=== PATIENT | female | born 1950 | race Caucasian/White ===

== ENCOUNTER → 2016-10-18 | Outpatient (CLI) | payer OTHER ==
[~2016-10-18] MED LIST: CEPH500C25 OR; CMD5 PO; CRDCD300 PO; ESCI1TAB10 PO; EZET10TA63 PO; LVNIS150 SC; PRAV40TA3 PO; SITA100T3 PO
[2016-10-18 09:49] LABS: URINE APPEARANCE CLEAR (CLEAR); URINE BILIRUBIN NEG (NEG); URINE COLOR YELLOW; URINE NITRITE NEG (NEG); URINE SPECIFIC GRAVITY 1.001 (1.000-1.030); UROBILINOGEN NEG (NEG)
[2016-10-18 09:59] LABS: MANUAL MICROSCOPIC REQUIRED? NO; REVIEW REQ? NO
[2016-10-18 10:11] LABS: ESTIMATED AVERAGE GLUCOSE 180 mg/dl; HA1C FLAG Normal (Normal)
[2016-10-18 10:17] LABS: ALB/GLOB RATIO 0.9 (0.9-2); ALKALINE PHOSPHATASE 72 U/L (45-117); ALT/SGPT 33 U/L (12-78); AST/SGOT 20 U/L (15-37); BLOOD UREA NITROGEN 20 mg/dl (7-18); BUN/CREATININE RATIO 16.7 (10-20); CALCIUM 9.6 mg/dl (8.5-10.1); CARBON DIOXIDE 27 mmol/L (21-32); CHLORIDE 102 mmol/L (98-107); GLUCOSE 173 mg/dl (70-99); HDL CHOLESTEROL 47 mg/dl; POTASSIUM 4.2 mmol/L (3.5-5.1); SODIUM 139 mmol/L (136-145)
[2016-10-18 10:22] LABS: CHOLESTEROL 157 mg/dl (0-200); CHOLESTEROL/HDL RATIO 3.3; LDL CHOLESTEROL CALCULATED 75 mg/dl; TRIGLYCERIDES 175 mg/dl (0-150); VERY LOW DENSITY LIPOPROT CALC 35 mg/dl
[2016-10-18 10:34] LABS: RATIO 102.9 mcg/mg (0-30.0)
== END | disposition home or self-care (01) ==
LOC: C.LAB1850 07:28
PROVIDERS: ATTEND Family Medicine
DX: E78.5 Hyperlipidemia, unspecified (principal); I10 Essential (primary) hypertension; G47.33 Obstructive sleep apnea (adult) (pediatric); E11.65 Type 2 diabetes mellitus with hyperglycemia; N39.0 Urinary tract infection, site not specified

== ENCOUNTER → 2017-02-16 | Outpatient (CLI) | payer OTHER ==
[2017-02-16 09:59] LABS: ESTIMATED AVERAGE GLUCOSE 206 mg/dl; HA1C FLAG Normal (Normal)
== END | disposition home or self-care (01) ==
LOC: C.LAB1850 08:19
PROVIDERS: ATTEND Family Medicine
DX: E11.65 Type 2 diabetes mellitus with hyperglycemia (principal)

== ENCOUNTER → 2017-03-13 | Outpatient (CLI) | payer OTHER ==
[2017-03-13 10:00] LABS: CALCIUM 9.1 mg/dl (8.5-10.1)
[2017-03-13 10:13] LABS: ALT/SGPT 35 U/L (12-78); BLOOD UREA NITROGEN 19 mg/dl (7-18); BUN/CREATININE RATIO 14.9 (10-20); CARBON DIOXIDE 29 mmol/L (21-32); CHLORIDE 99 mmol/L (98-107); CHOLESTEROL 156 mg/dl (0-200); GLUCOSE 209 mg/dl (70-99); MAGNESIUM 2.1 mg/dl (1.8-2.4); POTASSIUM 3.8 mmol/L (3.5-5.1); SODIUM 137 mmol/L (136-145); TRIGLYCERIDES 200 mg/dl (0-150); VERY LOW DENSITY LIPOPROT CALC 40 mg/dl
[2017-03-13 10:15] LABS: CHOLESTEROL/HDL RATIO 3.7; HDL CHOLESTEROL 42 mg/dl; LDL CHOLESTEROL CALCULATED 74 mg/dl
[2017-03-13 10:24] LABS: ESTIMATED AVERAGE GLUCOSE 209 mg/dl; HA1C FLAG Normal (Normal)
[2017-03-13 10:33] LABS: RATIO 98.2 mcg/mg (0-30.0)
== END | disposition home or self-care (01) ==
LOC: C.LAB1850 08:22
PROVIDERS: ATTEND Family Medicine
DX: E11.65 Type 2 diabetes mellitus with hyperglycemia (principal); Z79.4 Long term (current) use of insulin

== ENCOUNTER → 2017-06-27 | Outpatient (CLI) | payer OTHER ==
[2017-06-27 10:00] LABS: BLOOD UREA NITROGEN 28 mg/dl (7-18); BUN/CREATININE RATIO 18.5 (10-20); CALCIUM 9.4 mg/dl (8.5-10.1); CARBON DIOXIDE 27 mmol/L (21-32); CHLORIDE 101 mmol/L (98-107); GLUCOSE 154 mg/dl (70-99); POTASSIUM 3.7 mmol/L (3.5-5.1); SODIUM 137 mmol/L (136-145)
[2017-06-27 10:37] LABS: URINE APPEARANCE CLEAR (CLEAR); URINE BILIRUBIN NEG (NEG); URINE COLOR YELLOW; URINE NITRITE NEG (NEG); URINE PH 6.5 (4.5-7.5); URINE SPECIFIC GRAVITY 1.011 (1.000-1.030); UROBILINOGEN NEG (NEG)
[2017-06-27 10:41] LABS: MANUAL MICROSCOPIC REQUIRED? NO; REVIEW REQ? NO
[2017-06-27 10:47] LABS: RATIO 102.6 mcg/mg (0-30.0)
== END ==
LOC: C.LAB1850 07:24
PROVIDERS: ATTEND Family Medicine
DX: E11.65 Type 2 diabetes mellitus with hyperglycemia (principal); Z79.4 Long term (current) use of insulin

== ENCOUNTER → 2017-09-27 | Outpatient (CLI) | payer OTHER ==
[2017-09-27 11:41] LABS: HEMOGLOBIN A1C 6.7 % (4.5-5.6)
[2017-09-27 13:00] LABS: ALT/SGPT 23 U/L (12-78); BLOOD UREA NITROGEN 20 mg/dl (7-18); CALCIUM 9.3 mg/dl (8.5-10.1); CARBON DIOXIDE 28 mmol/L (21-32); CHOLESTEROL 169 mg/dl (0-200); CREATININE 1.29 mg/dl (0.60-1.20); GLUCOSE 142 mg/dl (70-99); LDL CHOLESTEROL CALCULATED 89 mg/dl; POTASSIUM 3.9 mmol/L (3.5-5.1); SODIUM 136 mmol/L (136-145)
== END | disposition home or self-care (01) ==
LOC: C.LAB1850 09:03
PROVIDERS: ATTEND Family Medicine
DX: E78.5 Hyperlipidemia, unspecified (principal); E11.65 Type 2 diabetes mellitus with hyperglycemia; N39.0 Urinary tract infection, site not specified

== ENCOUNTER 2021-11-25 17:29 | Inpatient (IN) ==
--- NOTE | 2021-11-25 18:55 | Emergency Department Note ---
History of Present Illness General Chief complaint: Shortness of Breath/Dyspnea Stated complaint: sob, has collapsed lung, dr rodriguez Time Seen by Provider: 11/25/21 18:36 Source: patient Mode of arrival: ambulatory Limitations: no limitations History of Present Illness This patient is a 71-year-old female who comes in after being sent over from her doctor's office after being found to have a moderate-sized pleural effusion with some secondary collapse of the lung. No pneumothorax. She states she has been feeling short of breath for 3 weeks and for started with a cough and fatigue and shortness of breath everything is gotten better except for the shortness of breath. She had multiple Covid tested been negative. She did these at home. She has been vaccinated as well as boosted. At present she has no cough or fever no blood or melena stool. No chest pain. She occasionally feels lightheaded or dizziness but none now. She had a CAT scan today which showed no PE but had the effusion. He said her blood pressures been running high and they change her medications today because her heart rate was low. She has had no rash or tick bites. Home Medications Medication Instructions Recorded Confirmed Type aspirin 81 mg tablet,delayed 81 mg PO HS 10/18/18 11/25/21 History release (Ecotrin Low Strength) pen needle, diabetic 31 gauge x #100 ea 07/29/20 11/25/21 Rx 3/16" (BD Ultra-Fine Mini Pen Needle) polyethylene glycol 3350 17 17 g PO DAILY PRN g 04/11/21 11/25/21 History gram/dose oral powder (Miralax) dulaglutide 1.5 mg/0.5 mL 1.5 mg SQ WK #2 ml 07/02/21 11/25/21 Rx subcutaneous pen injector (Trulicity) glipizide 10 mg tablet 10 mg PO QAM #90 tab 07/04/21 11/25/21 Rx spironolactone 25 1 tab PO DAILY #90 tab 07/04/21 11/25/21 Rx mg-hydrochlorothiazide 25 mg tablet methenamine hippurate 1 gram tablet 1 g PO Q12H #180 tab 07/06/21 11/25/21 Rx conjugated estrogens 0.625 mg/gram See Rx Instructions .ROUTE 10/03/21 11/25/21 Rx vaginal cream (Premarin) .COMPLEX #30 g rosuvastatin 20 mg tablet (Crestor) 20 mg PO HS #90 tab 10/24/21 11/25/21 Rx metformin 1,000 mg tablet 1,000 mg PO Q12H #180 tab 11/04/21 11/25/21 Rx diltiazem HCl 300 mg capsule,24 300 mg PO DAILY #30 cap 11/25/21 11/25/21 Rx hr,extended release insulin glargine U-300 conc 300 80 unit SUBCUT HS 11/25/21 11/25/21 History unit/mL (1.5 mL) subcutaneous pen (Toujeo SoloStar U-300 Insulin) losartan 50 mg tablet 50 mg PO DAILY #30 tab 11/25/21 11/25/21 Rx Allergies Allergy/AdvReac Type Severity Reaction Status Date / Time cat dander Allergy Intermediate ITCHY Verified 11/25/21 19:09 EYES, SNEEZING, CONGESTION lisinopril AdvReac Intermediate Cough Verified 11/25/21 19:09 Sulfa (Sulfonamide AdvReac Intermediate NAUSEA Verified 11/25/21 19:09 Antibiotics) Past Med/Surg History Medical History Aortic stenosis MILD CALCIFIC AORTIC STENOSIS NOTED ON 2005 ECHO [facility]. ECHO DONE 10/22/18 SHOWED NO . B-cell lymphoma CKD (chronic kidney disease) stage 3, GFR 30-59 ml/min Essential (primary) hypertension Hyperlipidemia longterm current use of insulin LVH (left ventricular hypertrophy) Mediastinal lymphadenopathy Morbid obesity MAX (obstructive sleep apnea) USING CPAP HS 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 Personal history of malignant neoplasm of other parts of uterus Surgical History H/O colonoscopy H/O excision of mass LEFT NECK-DIAGNOSED WITH LYMPHOMA H/O hysterectomy with oophorectomy History of tonsillectomy and adenoidectomy History of total knee arthroplasty right and left Family History Grandfather (Maternal) Family history of diabetes mellitus Family/Other Family history of diabetes mellitus Father Myocardial infarction Denies family history of Ovarian cancer Prostate cancer Breast cancer Colorectal cancer Social History Smoking Status: Never smoker Second Hand Exposure: No; Do You Dip or Chew Tobacco: No; Hx Alcohol Use: Yes Hx Substance Use: No Preferred Language: Bulgarian Communication Ability: Effective Visual Impairment: No Limitations Hearing Ability: Normal Machining Associate Required: No Beliefs That Will Affect Care: None marital status: Current Living Situation: Alone current occupational status: employed current occupation: [employer] Other Information That Helps Us Care for You: No Feels Safe at Home: Yes Safety Concerns: Feels Safe At This Time Childhood Exposure to Second-Hand Smoke: Yes Dental Care, Regularly: Yes Physical Activity Frequency: Does not Exercise Seatbelt Use: always Sunscreen Use: Yes Assistive Devices: Glasses Review of Systems A total of 10 systems reviewed and were otherwise negative Physical Exam Vital Signs Vital Signs - 24 hr 11/25/21 17:34 11/25/21 19:31 11/25/21 19:32 Temperature 36.1 C L Temperature Source Temporal Artery Scan Pulse Rate 42 L 43 L Pulse Rate [Finger] 43 L Respiratory Rate 30 H 18 18 Respiratory Effort / Characteristics Non-Labored Non-Labored Spontaneous Respiratory Depth Normal Normal Blood Pressure 195/68 H Blood Pressure [Left Arm] 197/63 H Blood Pressure Mean 110 Blood Pressure Mean [Left Arm] 107 Blood Pressure Position [Left Arm] Sitting Pulse Oximetry 98 96 96 Oxygen Delivery Method Room Air Room Air Room Air Sepsis Recent Fever Within 48 Hours No Sepsis New/Unexplained Change in Mental Status N/A Sepsis Action Taken by Nursing No Action Required 11/25/21 20:33 Temperature Temperature Source Pulse Rate Pulse Rate [Finger] 35 L Respiratory Rate 18 Respiratory Effort / Characteristics Non-Labored Spontaneous Respiratory Depth Normal Blood Pressure Blood Pressure [Left Arm] 194/70 H Blood Pressure Mean Blood Pressure Mean [Left Arm] 111 Blood Pressure Position [Left Arm] Sitting Pulse Oximetry 97 Oxygen Delivery Method Room Air Sepsis Recent Fever Within 48 Hours Sepsis New/Unexplained Change in Mental Status Sepsis Action Taken by Nursing General: Well developed well nourished not ill-appearing middle-age female who appears in no acute distress, breathing comfortably on room air. Normal speech HEENT: Normal cephalic atraumatic. Pupils are equal round and reactive to light. Extraocular movements are intact. Oropharynx is pink with moist mucous membranes. No swelling of the mouth lips or tongue. Neck: Supple with a midline trachea. No meningeal signs or stiffness, no JVD or bruits. No Stridor. Chest: Clear to auscultation bilaterally. No wheezes or rhonchi. No increased work of breathing. A port in right chest. Heart: Rate a cardiac and irregular and rhythm without murmurs or gallops. Abdomen: Soft nontender, nondistended without rebound guarding or rigidity. Extremities: No cyanosis clubbing. She does have 2+ bilateral lower extremity edema which she says is new. No calf tenderness or assymetry Spine/Back. Non tender to palpation. No CVA tenderness Skin: Good turgor without rashes. Neurologic exam: Cranial nerves two through 12 are intact. Motor and sensation are intact and symmetrical throughout. Course Administered Medications Aspirin (Aspirin 81 Mg Ectab) 81 mg PO HS [facility] Stop: 12/25/21 22:42 Last Admin: 11/25/21 23:30 Dose: 81 mg Documented by: [id number] Rosuvastatin Calcium (Rosuvastatin Calcium 20 Mg Tab) 20 mg PO [facility] Stop: 12/25/21 22:42 Last Admin: 11/25/21 23:30 Dose: 20 mg Documented by: [id number] Discontinued Medications Insulin Glargine (Insulin Glargine Solostar 100 Units/Ml 3 Ml Pen) 64 units SC 2243 [facility] Stop: 11/25/21 22:44 Last Admin: 11/25/21 23:57 Dose: Not Given Documented by: [id number] Critical Care Time Critical Care Time: Yes Total Critical Care Time: 30 Due to the patient's bradycardia third-degree heart block, need for consultations, extensive work-up, frequent reassessment for decompensation and further evaluation, I have personally spent greater than 30 minutes of critical care time in the direct management of this patient. This includes bedside care, interpretation of diagnostic studies, and testing, discussion with consultants, patient, and family members, and other required patient management activities. This 30 minutes is in excess of all separately billable procedures. Medical Decision Making Differential Diagnosis Pleural effusion, infection, Covid, arrhythmia, electrolyte or metabolic abnormality, thyroid disease, cardiac disease, PE, cancer related complication, medication side effect Medical Records Attestation: I reviewed the patient's medical records. Home Medications Current Medication List: was personally reviewed by me Laboratory Data Attestation: I reviewed the patient's lab results. Result diagrams: 11/25/21 19:17 11/25/21 19:17 Lab Results 11/25/21 11/25/21 11/25/21 Range/Units 19:05 19:17 19:17 WBC 10.37 (4.8-10.8) K/uL RBC 4.03 L (4.2-5.4) M/uL Hgb 11.8 L (12.0-16.0) g/dL Hct 36.7 L (37-47) % MCV 91.1 (80-100) fL MCH 29.3 (25-34) pg MCHC 32.2 (32-36) g/dL RDW Std Deviation 60.0 H (36.4-46.3) fL RDW Coeff of Shruti 17.9 H (11.5-14.5) % Plt Count 315 (130-400) K/uL MPV 9.6 (7.4-10.4) fL Immature Gran % (Auto) 0.2 % Neut % (Auto) 80.0 % Lymph % (Auto) 12.6 % Marion % (Auto) 5.4 % Eos % (Auto) 1.6 % Baso % (Auto) 0.2 % Neut # (Auto) 8.29 H (1.4-6.5) K/uL Lymph # (Auto) 1.31 (1.2-3.4) K/uL Marion # (Auto) 0.56 (0.11-0.59) K/uL Eos # (Auto) 0.17 (0-0.5) K/uL Baso # (Auto) 0.02 (0-0.2) K/uL Immature Gran # (Auto) 0.02 (0.00-0.02) K/uL PT 12.1 H (9.0-12.0) Seconds INR 1.1 (0.9-1.1) APTT 25.4 (21.0-31.0) Seconds PTT Ratio 0.9 Sodium (136-145) mmol/L Potassium (3.5-5.1) mmol/L Chloride (98-107) mmol/L Carbon Dioxide (21-32) mmol/L Anion Gap (3-11) BUN (6-23) mg/dl Creatinine (0.6-1.2) mg/dl Est Cr Clr Drug Dosing Est GFR ( Amer) ml/min Est GFR (Non-Af Amer) ml/min BUN/Creatinine Ratio (10-20) Glucose (70-99(Fasting)) mg/dl POC Glucose (70-99) mg/dl Calcium (8.5-10.1) mg/dl Magnesium (1.7-2.4) mg/dl Total Bilirubin (0.2-1.0) mg/dl AST (13-39) U/L ALT (7-52) U/L Alkaline Phosphatase (34-104) U/L Troponin I (0-0.04) ng/ml B-Natriuretic Peptide (0-100) pg/ml Total Protein (6.0-8.3) gm/dl Albumin (3.4-5.0) gm/dl Globulin (2.5-4.0) gm/dl Albumin/Globulin Ratio (0.9-2) Lipase (11-82) U/L TSH (0.300-4.500) uIu/ml Lyme Disease IgG Ab (Negative) Lyme Disease IgM Ab (Negative) SARS-CoV-2, RNA, NAAT NEGATIVE (NEGATIVE) 11/25/21 11/25/21 11/25/21 Range/Units 19:17 19:17 19:17 WBC (4.8-10.8) K/uL RBC (4.2-5.4) M/uL Hgb (12.0-16.0) g/dL Hct (37-47) % MCV (80-100) fL MCH (25-34) pg MCHC (32-36) g/dL RDW Std Deviation (36.4-46.3) fL RDW Coeff of Shruti (11.5-14.5) % Plt Count (130-400) K/uL MPV (7.4-10.4) fL Immature Gran % (Auto) % Neut % (Auto) % Lymph % (Auto) % Marion % (Auto) % Eos % (Auto) % Baso % (Auto) % Neut # (Auto) (1.4-6.5) K/uL Lymph # (Auto) (1.2-3.4) K/uL Marion # (Auto) (0.11-0.59) K/uL Eos # (Auto) (0-0.5) K/uL Baso # (Auto) (0-0.2) K/uL Immature Gran # (Auto) (0.00-0.02) K/uL PT (9.0-12.0) Seconds INR (0.9-1.1) APTT (21.0-31.0) Seconds PTT Ratio Sodium 139 (136-145) mmol/L Potassium 3.9 (3.5-5.1) mmol/L Chloride 103 (98-107) mmol/L Carbon Dioxide 27 (21-32) mmol/L Anion Gap 9 (3-11) BUN 28 H (6-23) mg/dl Creatinine 1.46 H (0.6-1.2) mg/dl Est Cr Clr Drug Dosing Not Reportable Est GFR ( Amer) 42.1 ml/min Est GFR (Non-Af Amer) 36.3 ml/min BUN/Creatinine Ratio 19.2 (10-20) Glucose 62 L (70-99(Fasting)) mg/dl POC Glucose (70-99) mg/dl Calcium 10.4 H (8.5-10.1) mg/dl Magnesium 1.9 (1.7-2.4) mg/dl Total Bilirubin 0.4 (0.2-1.0) mg/dl AST 15 (13-39) U/L ALT 13 (7-52) U/L Alkaline Phosphatase 55 (34-104) U/L Troponin I 0.04 (0-0.04) ng/ml B-Natriuretic Peptide 728 H (0-100) pg/ml Total Protein 7.3 (6.0-8.3) gm/dl Albumin 4.2 (3.4-5.0) gm/dl Globulin 3.1 (2.5-4.0) gm/dl Albumin/Globulin Ratio 1.4 (0.9-2) Lipase 77 (11-82) U/L TSH 4.204 (0.300-4.500) uIu/ml Lyme Disease IgG Ab (Negative) Lyme Disease IgM Ab (Negative) SARS-CoV-2, RNA, NAAT (NEGATIVE) 11/25/21 11/25/21 Range/Units 19:17 21:07 WBC (4.8-10.8) K/uL RBC (4.2-5.4) M/uL Hgb (12.0-16.0) g/dL Hct (37-47) % MCV (80-100) fL MCH (25-34) pg MCHC (32-36) g/dL RDW Std Deviation (36.4-46.3) fL RDW Coeff of Shruti (11.5-14.5) % Plt Count (130-400) K/uL MPV (7.4-10.4) fL Immature Gran % (Auto) % Neut % (Auto) % Lymph % (Auto) % Marion % (Auto) % Eos % (Auto) % Baso % (Auto) % Neut # (Auto) (1.4-6.5) K/uL Lymph # (Auto) (1.2-3.4) K/uL Marion # (Auto) (0.11-0.59) K/uL Eos # (Auto) (0-0.5) K/uL Baso # (Auto) (0-0.2) K/uL Immature Gran # (Auto) (0.00-0.02) K/uL PT (9.0-12.0) Seconds INR (0.9-1.1) APTT (21.0-31.0) Seconds PTT Ratio Sodium (136-145) mmol/L Potassium (3.5-5.1) mmol/L Chloride (98-107) mmol/L Carbon Dioxide (21-32) mmol/L Anion Gap (3-11) BUN (6-23) mg/dl Creatinine (0.6-1.2) mg/dl Est Cr Clr Drug Dosing Est GFR ( Amer) ml/min Est GFR (Non-Af Amer) ml/min BUN/Creatinine Ratio (10-20) Glucose (70-99(Fasting)) mg/dl POC Glucose 110 H (70-99) mg/dl Calcium (8.5-10.1) mg/dl Magnesium (1.7-2.4) mg/dl Total Bilirubin (0.2-1.0) mg/dl AST (13-39) U/L ALT (7-52) U/L Alkaline Phosphatase (34-104) U/L Troponin I (0-0.04) ng/ml B-Natriuretic Peptide (0-100) pg/ml Total Protein (6.0-8.3) gm/dl Albumin (3.4-5.0) gm/dl Globulin (2.5-4.0) gm/dl Albumin/Globulin Ratio (0.9-2) Lipase (11-82) U/L TSH (0.300-4.500) uIu/ml Lyme Disease IgG Ab Negative (Negative) Lyme Disease IgM Ab Negative (Negative) SARS-CoV-2, RNA, NAAT (NEGATIVE) Imaging Data Attestation: I personally reviewed and interpreted this imaging study as follows: My Impression: Chest x-raycardiomegaly with mild congestive changes Radiologist's Impression: Chest X-Ray 11/25/21 18:49 XR chest 1V portable at 8:01 PM CLINICAL HISTORY: Chest Pain. COMPARISON STUDY: 11/25/2021 at 8:50 AM TECHNIQUE: 1 view of the chest FINDINGS: Single frontal view of the chest demonstrates the heart size to again be enlarged. Compared to previous study, there is a decreased inspiratory effort with elevation of hemidiaphragms and crowding the bronchovascular markings at the lung bases and centrally. There is also been interval development of central vascular congestion. There is again suspicion of a small right pleural effusion and evidence for right basilar atelectasis. There are no confluent alveolar opacities. There is no diffuse interstitial edema. There is no acute osseous pathology. A Port-A-Cath is in place. IMPRESSION: 1. Compared to the earlier study, there is a decreased inspiratory effort with interval development of central vascular congestion characteristic of early cardiac decompensation. 2. There is again evidence for small right pleural effusion and right basilar atelectasis. ACT 112: Negative or not required by law. Electronically signed by: Favian Forde M.D. 11/25/2021 8:33 PM ECG Data Attestation: I personally reviewed and interpreted this ECG as follows: Indication: + SOB/dyspnea Rate (beats per minute): 50 Rhythm: + sinus rhythm ECG Intervals/blocks: + Complete heart block (Her heart rate does appear to be either high-grade second-degree or third-degree heart block. The QRS is moderately widened as well.) and + Normal QT ECG [place]: + Normal ECG ST segments: + Normal ST segments Comparison ECG Date: from (10/18/18) Change: the following changes noted (She now has a second or third-degree heart block) MDM Narrative This patient comes in as described above. She was placed on a playground monitor in room C8 she was apparently sent over after having a pleural effusion. She looks well except for her heart rate is low with that she is actually hypertensive. Its at least high-grade second-degree or possibly third-degree heart block. She has an a port which we did accessed. Chest x-ray and blood work was obtained. I did talk to cardiology who recommended that we put the pads on her and if she compensates we could give her calcium or pacing. This was done. I reassessed her multiple times. Her chest x-ray it suggest that she may have more fluids and earlier and I am concerned that she could have a CHF component. Her creatinine is increased compared to baseline but besides this she has no significant lecture light or metabolic abnormalities. Covid testing was negative. Lyme titer was negative. BNP was mildly elevated but troponin was normal. She does have an effusion on her CT as well as her x-ray. She had no PE on this done earlier today. Dr. Larios was consulted he saw her in the ER is going to meet her to the ICU given her bradycardia. Her blood pressures remain on the hypertensive side and she did not require any other acute intervention however was observed and checked frequently. Continuous cardiac monitoring: Orders placed in EMR for continuous cardiac monitoring. Upon my interpretation she was noted to be bradycardic with a second to third-degree heart block Impression & Plan Third degree heart block, Port-A-Cath in place, Lab test negative for COVID-19 virus, Pleural effusion, History of B-cell lymphoma Discharge Plan Visit Data Chief Complaint: Shortness of Breath/Dyspnea Stated Complaint: sob, has collapsed lung, dr rodriguez ED Provider: Hu Anaya Discharge Problem: Third degree heart block, Port-A-Cath in place, Lab test negative for COVID-19 virus, Pleural effusion, History of B-cell lymphoma Patient Disposition: Admitted As Inpatient Discharge Instructions Interventions: ED Discharge Assessment Last Done: 11/25/21 22:01
[2021-11-25 19:37] LABS: Basophils # (auto) 0.02 K/uL (0-0.2); Basophils % (auto) 0.2 %; Eosinophils # (auto) 0.17 K/uL (0-0.5); Eosinophils % (auto) 1.6 %; Hematocrit (blood only) 36.7 % (37-47); Hemoglobin 11.8 g/dL (12.0-16.0); Immature Granulocytes # (auto) 0.02 K/uL (0.00-0.02); Immature Granulocytes % (auto) 0.2 %; Lymphocytes # (auto) 1.31 K/uL (1.2-3.4); Lymphocytes % (auto) 12.6 %; Mean Corpuscular Hemoglobin 29.3 pg (25-34); Mean Corpuscular Hgb Conc 32.2 g/dL (32-36); Mean Corpuscular Volume 91.1 fL (80-100); Mean Platelet Volume 9.6 fL (7.4-10.4); Monocytes # (auto) 0.56 K/uL (0.11-0.59); Monocytes % (auto) 5.4 %; Neutrophils # (auto) 8.29 K/uL (1.4-6.5); Platelet Count 315 K/uL (130-400); RDW Coefficient of Variation 17.9 % (11.5-14.5); Red Blood Count 4.03 M/uL (4.2-5.4); White Blood Count 10.37 K/uL (4.8-10.8)
[2021-11-25 19:45] LABS: INR 1.1 (0.9-1.1); Partial Thromboplastin Ratio 0.9; Partial Thromboplastin Time 25.4 Seconds (21.0-31.0); Prothrombin Time 12.1 Seconds (9.0-12.0)
[2021-11-25 19:59] LABS: Troponin I 0.04 ng/ml (0-0.04)
[2021-11-25 20:01] LABS: Alanine Aminotransferase 13 U/L (7-52); Albumin Globulin Ratio 1.4 (0.9-2); Albumin Level 4.2 gm/dl (3.4-5.0); Alkaline Phosphatase 55 U/L (34-104); Anion Gap 9 (3-11); Aspartate Aminotransferase 15 U/L (13-39); BUN Creatinine Ratio 19.2 (10-20); Bilirubin,Total 0.4 mg/dl (0.2-1.0); Blood Urea Nitrogen 28 mg/dl (6-23); Calcium 10.4 mg/dl (8.5-10.1); Carbon Dioxide 27 mmol/L (21-32); Chloride 103 mmol/L (98-107); Est GFR (African American) 42.1 ml/min; Est GFR (Non-African American) 36.3 ml/min; Globulin 3.1 gm/dl (2.5-4.0); Glucose 62 mg/dl (70-99(Fasting)); Lipase 77 U/L (11-82); Magnesium 1.9 mg/dl (1.7-2.4); Potassium 3.9 mmol/L (3.5-5.1); Sodium 139 mmol/L (136-145); Total Protein 7.3 gm/dl (6.0-8.3)
[2021-11-25 20:33] LABS: Lyme Ab IgG w/WB Rflx Negative (Negative); Lyme Ab IgM w/WB Rflx Negative (Negative)
--- NOTE | 2021-11-25 20:35 | XRay Report ---
XR chest 1V portable at 8:01 PM CLINICAL HISTORY: Chest Pain. COMPARISON STUDY: 11/25/2021 at 8:50 AM TECHNIQUE: 1 view of the chest FINDINGS: Single frontal view of the chest demonstrates the heart size to again be enlarged. Compared to previo us study, there is a decreased inspiratory effort with elevation of hemidiaphragms and crowding the b ronchovascular markings at the lung bases and centrally. There is also been interval development of c entral vascular congestion. There is again suspicion of a small right pleural effusion and evidence f or right basilar atelectasis. There are no confluent alveolar opacities. There is no diffuse intersti tial edema. There is no acute osseous pathology. A Port-A-Cath is in place. IMPRESSION: 1. Compared to the earlier study, there is a decreased inspiratory effort with interval development o f central vascular congestion characteristic of early cardiac decompensation. 2. There is again evidence for small right pleural effusion and right basilar atelectasis. ACT 112: Negative or not required by law. Electronically signed by: Favian Forde M.D. 11/25/2021 8:33 PM
--- NOTE | 2021-11-25 21:12 | History & Physical Report ---
Date of Service November 25, 2021 Assessment & Plan (1) Third degree heart block: Plan: Third-degree heart block/symptomatic bradycardia/aortic stenosis- Admit to the ICU Hold Cardizem CD Continue pacer pads with pacer at bedside Hold any other anti-hypertensives, level of pressure to ride high 180s -190s over the evening Order complete echocardiogram Cardiology is aware and will see patient in a.m. (2) Bradycardia: Plan: See above (3) Acute kidney injury superimposed on CKD: Plan: Creatinine 1.46, with baseline 1.06-1.27 Hold medications as noted Gentle rehydration Recheck laboratories in a.m. (4) Diabetes mellitus, type II, insulin dependent: Plan: Noted to be hypoglycemic with glucose 62 upon admission Hold dulaglutide, and Metformin Reduce Toujeo from 80 to 50 units subcu at bedtime Insulin correction per ICU protocol (5) Aortic stenosis: Plan: See above (6) Hyperlipidemia: Plan: Continue rosuvastatin (7) Obstructive sleep apnea: Plan: CPAP at bedtime (8) B-cell lymphoma: History of Present Illness Chief Complaint: The patient presents to the emergency department with intermittent shortness of breath and fatigue over the past 3 weeks, was seen by her outpatient physicians office, and when found to have a moderate sized pleural effusion she was sent to the ED for further assessment. Primary Care Provider: Nikki Tom MD The patient is a 71-year-old female with a past medical history including B-cell lymphoma, CKD stage III, sarcoidosis, diabetes mellitus type 2, aortic stenosis, essential hypertension, mitral regurgitation, MAX, recurrent UTI, situational anxiety, venous insufficiency, hyperlipidemia, and long-term insulin use. Patient notes shortness of breath and dyspnea on exertion intermittently over the past 3 weeks, was concerned that she had COVID-19, and has been testing himself periodically with with negatives testing. When seen by her outpatient physician, plans were to decrease the dosing of Cardizem CD, and decrease the dosing of her long-acting insulin due to intentionally being able to lower her blood sugars with A1c decreasing from 7-6. When outpatient imaging showed a moderate sized pleural effusion and low heart rate, she was sent to the ED for assessment. In the ED, she was found to be in complete heart block with heart rate in the 30s, and was referred for assessment for admission. Allergies Allergy/AdvReac Type Severity Reaction Status Date / Time cat dander Allergy Intermediate ITCHY Verified 11/25/21 19:09 EYES, SNEEZING, CONGESTION lisinopril AdvReac Intermediate Cough Verified 11/25/21 19:09 Sulfa (Sulfonamide AdvReac Intermediate NAUSEA Verified 11/25/21 19:09 Antibiotics) Home Medications Medication Instructions Recorded Confirmed Type aspirin 81 mg tablet,delayed 81 mg PO HS 10/18/18 11/25/21 History release (Ecotrin Low Strength) pen needle, diabetic 31 gauge x #100 ea 07/29/20 11/25/21 Rx 3/16" (BD Ultra-Fine Mini Pen Needle) polyethylene glycol 3350 17 17 g PO DAILY PRN g 04/11/21 11/25/21 History gram/dose oral powder (Miralax) dulaglutide 1.5 mg/0.5 mL 1.5 mg SQ WK #2 ml 07/02/21 11/25/21 Rx subcutaneous pen injector (Trulicity) glipizide 10 mg tablet 10 mg PO QAM #90 tab 07/04/21 11/25/21 Rx spironolactone 25 1 tab PO DAILY #90 tab 07/04/21 11/25/21 Rx mg-hydrochlorothiazide 25 mg tablet methenamine hippurate 1 gram tablet 1 g PO Q12H #180 tab 07/06/21 11/25/21 Rx conjugated estrogens 0.625 mg/gram See Rx Instructions .ROUTE 10/03/21 11/25/21 Rx vaginal cream (Premarin) .COMPLEX #30 g rosuvastatin 20 mg tablet (Crestor) 20 mg PO HS #90 tab 10/24/21 11/25/21 Rx metformin 1,000 mg tablet 1,000 mg PO Q12H #180 tab 11/04/21 11/25/21 Rx diltiazem HCl 300 mg capsule,24 300 mg PO DAILY #30 cap 11/25/21 11/25/21 Rx hr,extended release insulin glargine U-300 conc 300 80 unit SUBCUT HS 11/25/21 11/25/21 History unit/mL (1.5 mL) subcutaneous pen (Toujeo SoloStar U-300 Insulin) losartan 50 mg tablet 50 mg PO DAILY #30 tab 03/04/22 03/04/22 Rx Past Med/Surg History Medical History Aortic stenosis MILD CALCIFIC AORTIC STENOSIS NOTED ON 2005 ECHO [facility]. ECHO DONE 10/22/18 SHOWED NO . B-cell lymphoma CKD (chronic kidney disease) stage 3, GFR 30-59 ml/min Essential (primary) hypertension Hyperlipidemia senior care current use of insulin LVH (left ventricular hypertrophy) Mediastinal lymphadenopathy Morbid obesity MAX (obstructive sleep apnea) USING CPAP HS 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 Personal history of malignant neoplasm of other parts of uterus Surgical History H/O colonoscopy H/O excision of mass LEFT NECK-DIAGNOSED WITH LYMPHOMA H/O hysterectomy with oophorectomy History of tonsillectomy and adenoidectomy History of total knee arthroplasty right and left Family History Grandfather (Maternal) Family history of diabetes mellitus Family/Other Family history of diabetes mellitus Father Myocardial infarction Denies family history of Ovarian cancer Prostate cancer Breast cancer Colorectal cancer Social History Smoking Status: Never smoker Second Hand Exposure: No; Do You Dip or Chew Tobacco: No; Hx Alcohol Use: Yes Hx Substance Use: No Preferred Language: Ukrainian Communication Ability: Effective Visual Impairment: No Limitations Hearing Ability: Normal Coding Manager Required: No Beliefs That Will Affect Care: None marital status: Current Living Situation: Alone current occupational status: employed current occupation: [employer] Other Information That Helps Us Care for You: No Feels Safe at Home: Yes Safety Concerns: Feels Safe At This Time Childhood Exposure to Second-Hand Smoke: Yes Dental Care, Regularly: Yes Physical Activity Frequency: Does not Exercise Seatbelt Use: always Sunscreen Use: Yes Assistive Devices: None Review of Systems Review of Systems: The patient denies chest pain, palpitations, cough, lower extremity swelling, sore throat, fevers, chills, sweats, nausea, vomiting, diarrhea , constipation, abdominal pain, pelvic pain, blood in urine or stool, dysuria, urinary frequency or urgency, memory loss, loss of consciousness, rash, abnormal bruising or bleeding, focal weakness, numbness or tingling in arms or legs, generalized arthralgias or myalgias, back or neck pain, or night sweats. The review of systems is otherwise negative other than for that already noted above, and at least 10 systems have been reviewed. Physical Exam Physical Exam: The patient is awake, alert and oriented 3, well developed and well nourished, normocephalic and atraumatic, lying in bed and in no acute distress. HEENT--PERRL, EOMI, mucous membranes and oropharynx normal Neck--supple. No JVD. No bruits. Thyroid normal, trachea midline, no adenopathy. Heart--normal S1 and S2. No murmurs, rubs or gallops. Lungs--clear bilaterally, no respiratory distress, no accessory muscle use. Abdomen--normal bowel sounds and soft. Nontender. Nondistended, obese Extremities--no cyanosis or clubbing. No edema. Dermatologic--normal skin turgor, normal color, no abnormal lymph nodes, no rash. Neurologic--cranial nerves II through XII grossly intact. Rheumatologic--normal range of motion. Psychiatric--normal affect. Results & Data Results & Data ([facility]) Vital Signs (Past 12 Hours) Vital Signs Temp Pulse Pulse Resp BP BP Pulse Ox 11/25/21 20:33 35 L 18 194/70 H 97 11/25/21 19:32 43 L 18 197/63 H 96 11/25/21 19:31 43 L 18 96 11/25/21 17:34 36.1 C L 42 L 30 H 195/68 H 98 Laboratory Results Laboratory Results WBC 10.37 K/uL (4.8-10.8) 11/25/21 19:17 RBC 4.03 M/uL (4.2-5.4) L 11/25/21 19:17 Hgb 11.8 g/dL (12.0-16.0) L 11/25/21 19:17 Hct 36.7 % (37-47) L 11/25/21 19:17 MCV 91.1 fL (80-100) 11/25/21 19:17 MCH 29.3 pg (25-34) 11/25/21 19:17 MCHC 32.2 g/dL (32-36) 11/25/21 19:17 RDW Std Deviation 60.0 fL (36.4-46.3) H 11/25/21 19:17 RDW Coeff of Shruti 17.9 % (11.5-14.5) H 11/25/21 19:17 Plt Count 315 K/uL (130-400) 11/25/21 19:17 MPV 9.6 fL (7.4-10.4) 11/25/21 19:17 Immature Gran % (Auto) 0.2 % 11/25/21 19:17 Neut % (Auto) 80.0 % 11/25/21 19:17 Lymph % (Auto) 12.6 % 11/25/21 19:17 Hamilton % (Auto) 5.4 % 11/25/21 19:17 Eos % (Auto) 1.6 % 11/25/21 19:17 Baso % (Auto) 0.2 % 11/25/21 19:17 Neut # (Auto) 8.29 K/uL (1.4-6.5) H 11/25/21 19:17 Lymph # (Auto) 1.31 K/uL (1.2-3.4) 11/25/21 19:17 Hamilton # (Auto) 0.56 K/uL (0.11-0.59) 11/25/21 19:17 Eos # (Auto) 0.17 K/uL (0-0.5) 11/25/21 19:17 Baso # (Auto) 0.02 K/uL (0-0.2) 11/25/21 19:17 Immature Gran # (Auto) 0.02 K/uL (0.00-0.02) 11/25/21 19:17 PT 12.1 Seconds (9.0-12.0) H 11/25/21 19:17 INR 1.1 (0.9-1.1) 11/25/21 19:17 APTT 25.4 Seconds (21.0-31.0) 11/25/21 19:17 PTT Ratio 0.9 11/25/21 19:17 Sodium 139 mmol/L (136-145) 11/25/21 19:17 Potassium 3.9 mmol/L (3.5-5.1) 11/25/21 19:17 Chloride 103 mmol/L (98-107) 11/25/21 19:17 Carbon Dioxide 27 mmol/L (21-32) 11/25/21 19:17 Anion Gap 9 (3-11) 11/25/21 19:17 BUN 28 mg/dl (6-23) H 11/25/21 19:17 Creatinine 1.46 mg/dl (0.6-1.2) H 11/25/21 19:17 Est Cr Clr Drug Dosing Not Reportable 11/25/21 19:17 Est GFR ( Amer) 42.1 ml/min 11/25/21 19:17 Est GFR (Non-Af Amer) 36.3 ml/min 11/25/21 19:17 BUN/Creatinine Ratio 19.2 (10-20) 11/25/21 19:17 Glucose 62 mg/dl (70-99(Fasting)) L 11/25/21 19:17 POC Glucose 82 mg/dl (70-99) 11/25/21 23:27 Calcium 10.4 mg/dl (8.5-10.1) H 11/25/21 19:17 Magnesium 1.9 mg/dl (1.7-2.4) 11/25/21 19:17 Total Bilirubin 0.4 mg/dl (0.2-1.0) 11/25/21 19:17 AST 15 U/L (13-39) 11/25/21 19:17 ALT 13 U/L (7-52) 11/25/21 19:17 Alkaline Phosphatase 55 U/L (34-104) 11/25/21 19:17 Troponin I 0.04 ng/ml (0-0.04) 11/25/21 19:17 B-Natriuretic Peptide 728 pg/ml (0-100) H 11/25/21 19:17 Total Protein 7.3 gm/dl (6.0-8.3) 11/25/21 19:17 Albumin 4.2 gm/dl (3.4-5.0) 11/25/21 19:17 Globulin 3.1 gm/dl (2.5-4.0) 11/25/21 19:17 Albumin/Globulin Ratio 1.4 (0.9-2) 11/25/21 19:17 Lipase 77 U/L (11-82) 11/25/21 19:17 TSH 4.204 uIu/ml (0.300-4.500) 11/25/21 19:17 Nasal Screen MRSA (PCR) Negative (Negative) 11/25/21 22:30 Lyme Disease IgG Ab Negative (Negative) 11/25/21 19:17 Lyme Disease IgM Ab Negative (Negative) 11/25/21 19:17 SARS-CoV-2, RNA, NAAT NEGATIVE (NEGATIVE) 11/25/21 19:05 Impressions Chest X-Ray 11/25/21 18:49 XR chest 1V portable at 8:01 PM CLINICAL HISTORY: Chest Pain. COMPARISON STUDY: 11/25/2021 at 8:50 AM TECHNIQUE: 1 view of the chest FINDINGS: Single frontal view of the chest demonstrates the heart size to again be enlarged. Compared to previous study, there is a decreased inspiratory effort with elevation of hemidiaphragms and crowding the bronchovascular markings at the lung bases and centrally. There is also been interval development of central vascular congestion. There is again suspicion of a small right pleural effusion and evidence for right basilar atelectasis. There are no confluent alveolar opacities. There is no diffuse interstitial edema. There is no acute osseous pathology. A Port-A-Cath is in place. IMPRESSION: 1. Compared to the earlier study, there is a decreased inspiratory effort with interval development of central vascular congestion characteristic of early cardiac decompensation. 2. There is again evidence for small right pleural effusion and right basilar atelectasis. ACT 112: Negative or not required by law. Electronically signed by: Favian Forde M.D. 11/25/2021 8:33 PM Code Status & VTE Plan Code Status Full code VTE Prophylaxis Plan VTE Prophylaxis will be ordered: Yes PG Care Time/CCT Total # of Minutes Spent Total Time Spent with Patient: Total time spent is greater than 50% in coordination of care (as documented) at patient's floor/unit and/or counseling patient: 40 minutes Coding Level of Care Code 11295 Initial Inpt Care Lvl 3 Diagnoses Third degree heart block I44.2 Bradycardia R00.1 Diabetes mellitus, type II, insulin dependent E11.9; Z79.4 Aortic stenosis I35.0 Obstructive sleep apnea G47.33 Hyperlipidemia E78.5 B-cell lymphoma C85.10 Acute kidney injury superimposed on CKD N17.9; N18.9
[2021-11-25] MEDS ORDERED: INSULIN GLARGINE SOLOSTAR 100 UNITS/ML 3 ML PEN SC SCH (22:43)
[2021-11-25] MEDS ORDERED: ICU PROTOCOL FOR HYPERGLYCEMIA PRN (22:43)
[2021-11-25] MEDS ORDERED: POLYETHYLENE (MIRALAX) 17 GM PACK PO PRN (22:43)
--- NOTE | 2021-11-25 23:28 | Critical Care Consultation ---
Date of Consultation November 25, 2021 Assessment & Plan (1) Admitted to intensive care unit: Reason Critically Ill: 71-year-old female presenting in complete heart block requiring close hemodynamic monitoring with potential need for intervention. NEURO - * CAM ICU: NEGATIVE CARDIAC/VASCULAR - * Complete heart block: * This certainly could be contributing the patient's ongoing symptoms of the last few weeks with associated dyspnea on exertion and generalized fatigue. * Thankfully, the patient remains hemodynamically stable and actually relatively hypertensive. * Will allow for permissive hypertension in the setting of complete heart block. Would be hesitant to administer antihypertensives with concern for lack of compensatory mechanism in the form of increasing her heart rate. * Appreciate cardiology recommendations. * EKG: Third-degree heart block at a rate of [address] elevations noted. QTc 485 ms. * Monitor on telemetry. RESPIRATORY - * Dyspnea on exertion: * Multifactorial in a patient complete heart block as well as with associated RIGHT-sided pleural effusion. * Question if new pleural effusion related to underlying current cardiac condition. * Patient does follow with pulmonary in the outpatient and was actually scheduled to see them next week. GI/NUTRITION - * DM diet RENAL/LYTES - * HARJINDER on CKD 3: * Question degree of hypertensive nephropathy. * Will trend electrolytes. * Avoid fluid resuscitation in the hypertensive patient. * Patient tolerating p.o. - * No concerns at this time. ENDO - * DMII * BSGs per unit protocol. ISS --> gtt per unit policy. HEME - * Stable H&H ID - * No concerns of infectious contribution at this time. * Lyme titer negative LINES/IV ACCESS - * PIVs x2 * RIGHT sided a port DVT PROPHYLAXIS - * SCDs I have personally spent 35 minutes of critical care time in the direct management of this patient. This is a life/limb threatening event. This includes time spent evaluating patient, direct bedside care, chart review, placing orders, interpretation of diagnostic studies, discussion with consultants, patient, and family members, as well as other required patient management activities. This time is exclusive of all separately billable procedures, and teaching time and separate from and in addition to any other critical care service time. Thank you for allowing us to participate in the care of this patient. Please refer to my attending physician's documentation for any further recommendations. (2) Third degree heart block: (3) Acute kidney injury superimposed on CKD: (4) Pleural effusion: (5) History of B-cell lymphoma: (6) Bradycardia: History of Present Illness Attending Physician: Samuel Barrios MD History of Present Illness Patient is a 71-year-old female with an extensive past medical history including diabetes, CKD, aortic stenosis, MAX, hyperlipidemia, B-cell lymphoma, mitral regurg, and sarcoidosis. Patient had been feeling weak, fatigue, and short of breath for approximately 2 weeks. She reports that she initially had symptoms with associated cough. She was concerned that she had contracted Covid. She has had multiple home test which were all negative. The majority of her symptoms had resolved, however the patient remained with persistent shortness of breath on exertion and generalized fatigue. She was seen in the outpatient today and had chest x-ray as well as CT scans performed which demonstrated RIGHT sided pleural effusion. She was sent to the emergency department and on evaluation, the patient was found to be significantly bradycardic and in complete heart block. Thankfully, she remained hemodynamically stable and was actually relatively hypertensive throughout her stay. Emergency department physician did reach out to cardiology. No emergent intervention recommended at this point. She will be admitted to the ICU for close monitoring in the event that she were to decompensate. Upon evaluation in the ICU, the patient is awake, alert, and oriented. At rest, the patient offers no complaints of discomfort. She does admit that she was with continued dyspnea on exertion. At this point, the patient offers no complaints at this time. Allergies Allergy/AdvReac Type Severity Reaction Status Date / Time cat dander Allergy Intermediate ITCHY Verified 11/25/21 19:09 EYES, SNEEZING, CONGESTION lisinopril AdvReac Intermediate Cough Verified 11/25/21 19:09 Sulfa (Sulfonamide AdvReac Intermediate NAUSEA Verified 11/25/21 19:09 Antibiotics) Home Medications Medication Instructions Recorded Confirmed Type aspirin 81 mg tablet,delayed 81 mg PO HS 10/18/18 11/25/21 History release (Ecotrin Low Strength) pen needle, diabetic 31 gauge x #100 ea 07/29/20 11/25/21 Rx 3/16" (BD Ultra-Fine Mini Pen Needle) polyethylene glycol 3350 17 17 g PO DAILY PRN g 04/11/21 11/25/21 History gram/dose oral powder (Miralax) dulaglutide 1.5 mg/0.5 mL 1.5 mg SQ WK #2 ml 07/02/21 11/25/21 Rx subcutaneous pen injector (Trulicity) glipizide 10 mg tablet 10 mg PO QAM #90 tab 07/04/21 11/25/21 Rx spironolactone 25 1 tab PO DAILY #90 tab 07/04/21 11/25/21 Rx mg-hydrochlorothiazide 25 mg tablet methenamine hippurate 1 gram tablet 1 g PO Q12H #180 tab 07/06/21 11/25/21 Rx conjugated estrogens 0.625 mg/gram See Rx Instructions .ROUTE 10/03/21 11/25/21 Rx vaginal cream (Premarin) .COMPLEX #30 g rosuvastatin 20 mg tablet (Crestor) 20 mg PO HS #90 tab 10/24/21 11/25/21 Rx metformin 1,000 mg tablet 1,000 mg PO Q12H #180 tab 11/04/21 11/25/21 Rx diltiazem HCl 300 mg capsule,24 300 mg PO DAILY #30 cap 11/25/21 11/25/21 Rx hr,extended release insulin glargine U-300 conc 300 80 unit SUBCUT HS 11/25/21 11/25/21 History unit/mL (1.5 mL) subcutaneous pen (Toujeo SoloStar U-300 Insulin) losartan 50 mg tablet 50 mg PO DAILY #30 tab 11/25/21 11/25/21 Rx Patient History Medical History Aortic stenosis MILD CALCIFIC AORTIC STENOSIS NOTED ON 2005 ECHO [facility]. ECHO DONE 10/22/18 SHOWED NO . 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 LVH (left ventricular hypertrophy) Mediastinal lymphadenopathy Morbid obesity MAX (obstructive sleep apnea) USING CPAP HS 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 Personal history of malignant neoplasm of other parts of uterus Surgical History H/O colonoscopy H/O excision of mass LEFT NECK-DIAGNOSED WITH LYMPHOMA H/O hysterectomy with oophorectomy History of tonsillectomy and adenoidectomy History of total knee arthroplasty right and left Family History Grandfather (Maternal) Family history of diabetes mellitus Family/Other Family history of diabetes mellitus Father Myocardial infarction Denies family history of Ovarian cancer Prostate cancer Breast cancer Colorectal cancer Social History Smoking Status: Never smoker Second Hand Exposure: No; Do You Dip or Chew Tobacco: No; Hx Alcohol Use: Yes Hx Substance Use: No Preferred Language: Bulgarian Communication Ability: Effective Visual Impairment: No Limitations Hearing Ability: Normal Core Shaper Sides Required: No Beliefs That Will Affect Care: None marital status: Current Living Situation: Alone current occupational status: employed current occupation: [employer] Other Information That Helps Us Care for You: No Feels Safe at Home: Yes Safety Concerns: Feels Safe At This Time Childhood Exposure to Second-Hand Smoke: Yes Dental Care, Regularly: Yes Physical Activity Frequency: Does not Exercise Seatbelt Use: always Sunscreen Use: Yes Assistive Devices: None Review of Systems Review of Systems: A complete 10 point review of systems was reviewed with the patient with pertinent positives and negatives as per history of present illness. All else were negative. Physical Exam Physical Exam: VITAL SIGNS - Vital signs and nursing notes were reviewed. GENERAL - 71-year-old female appearing her stated age who is in no acute distress. Communicates well with provider and answers questions appropriately. HEAD - NC/AT. MOUTH/OROPHARYNX - Without perioral cyanosis. Buccal mucosa pink and dry. NECK - Neck with FROM. LUNGS - Chest wall symmetric without accessory muscle use, intercostals retractions, or central cyanosis. Normal vesicular breath sounds CTA B/L. No wheezes, rales, or rhonchi appreciated. CARDIAC - RRR with S1/S2. No murmur, rubs, or gallops appreciated. No reproducible tenderness to palpation appreciated over the anterior chest wall. ABDOMEN - Abdominal contour obese without pulsations or visible masses. BS normoactive all four quadrants. No tenderness, palpable masses, hepatosplenomegaly, or ascites noted. EXTREMITIES - No clubbing or peripheral cyanosis. No pretibial edema present. +3/5 radial and dorsalis pedis pulses palpated throughout. +5/5 strength noted in UE/LE bilaterally. NEUROLOGIC - Cranial nerves II through XII grossly intact. PSYCH - A&Ox3 and cooperates fully with examiner. Pt is very pleasant and interacts well with examiner. Results & Data Results & Data ([facility]) Vital Signs (Past 12 Hours) Vital Signs Temp Pulse Pulse Pulse Resp BP BP 11/25/21 22:43 36.6 C 40 L 22 204/66 H 11/25/21 21:56 41 L 18 190/66 H 11/25/21 21:13 36 L 192/72 H 11/25/21 20:33 35 L 18 194/70 H 11/25/21 19:32 43 L 18 197/63 H 11/25/21 19:31 43 L 18 11/25/21 17:34 36.1 C L 42 L 30 H 195/68 H Pulse Ox 11/25/21 22:43 92 11/25/21 21:56 96 11/25/21 21:13 11/25/21 20:33 97 11/25/21 19:32 96 11/25/21 19:31 96 11/25/21 17:34 98 Coding Level of Care Code Critical Care 1st 30-74 mins Diagnoses Admitted to intensive care unit Z78.9 Third degree heart block I44.2 Acute kidney injury superimposed on CKD N17.9; N18.9 Pleural effusion J90 History of B-cell lymphoma Z85.72 Bradycardia R00.1 Time Spent (min) 35
[2021-11-25] MEDS: ASPIRIN 81 MG ECTAB PO SCH (23:30)
[2021-11-25] MEDS: ROSUVASTATIN CALCIUM 20 MG TAB PO SCH (23:30)
[2021-11-25] MEDS ORDERED: GLUCOSE 40% GEL 15 GM TUBE PO PRN (23:40)
[2021-11-25] MEDS ORDERED: GLUCAGON FOR INJ 1 MG VIAL SQ PRN (23:40)
[2021-11-25] MEDS ORDERED: GLUCOSE 10 TABS/TUBE PO PRN (23:40)
[2021-11-25] MEDS ORDERED: DEXTROSE 50% 50 ML SYRINGE IV PRN (23:40)
[2021-11-26] MEDS ORDERED: HEPARIN 100 UNIT/ML 5ML FLUSH FLUSH PRN (00:46)
[2021-11-26 04:43] LABS: Basophils # (auto) 0.01 K/uL (0-0.2); Basophils % (auto) 0.1 %; Eosinophils # (auto) 0.22 K/uL (0-0.5); Hemoglobin 9.6 g/dL (12.0-16.0); Immature Granulocytes # (auto) 0.01 K/uL (0.00-0.02); Immature Granulocytes % (auto) 0.1 %; Lymphocytes # (auto) 1.07 K/uL (1.2-3.4); Lymphocytes % (auto) 14.5 %; Mean Corpuscular Hemoglobin 28.3 pg (25-34); Mean Corpuscular Volume 91.4 fL (80-100); Mean Platelet Volume 9.8 fL (7.4-10.4); Monocytes # (auto) 0.44 K/uL (0.11-0.59); Neutrophils # (auto) 5.62 K/uL (1.4-6.5); Neutrophils % (auto) 76.3 %; Platelet Count 267 K/uL (130-400); RDW Standard Deviation 60.9 fL (36.4-46.3); Red Blood Count 3.39 M/uL (4.2-5.4); White Blood Count 7.37 K/uL (4.8-10.8)
[2021-11-26 05:11] LABS: Albumin Globulin Ratio 1.1 (0.9-2); Albumin Level 3.6 gm/dl (3.4-5.0); BUN Creatinine Ratio 21.4 (10-20); Bilirubin,Total 0.4 mg/dl (0.2-1.0); Calcium 8.6 mg/dl (8.5-10.1); Creatinine Clr Calc Pharmacy 56.8 ml/min; Est GFR (African American) 55.1 ml/min; Est GFR (Non-African American) 47.5 ml/min; Globulin 3.2 gm/dl (2.5-4.0); Potassium 3.4 mmol/L (3.5-5.1); Total Protein 6.8 gm/dl (6.0-8.3)
[2021-11-26 05:20] LABS: Troponin I 0.05 ng/ml (0-0.04)
[2021-11-26] MEDS: POTASSIUM CHLORIDE / WTR 10 MEQ/100 ML PLCT IV SCH ×2 (06:26→07:44)
[2021-11-26] MEDS ORDERED: POTASSIUM CHLORIDE / WTR 20 MEQ/100 ML PLCT IV ONE (09:45)
[2021-11-26] MEDS: methylPREDNISolone 40 MG in SYRINGE 0 ML IV SCH ×2 (12:02→23:41)
--- NOTE | 2021-11-26 13:01 | Critical Care Progress Note ---
Date of Service November 26, 2021 Assessment & Plan (1) Admitted to intensive care unit: Plan: Reason Critically Ill: 71-year-old female presenting in complete heart block requiring close hemodynamic monitoring with potential need for intervention. NEURO - * CAM ICU: NEGATIVE CARDIAC/VASCULAR - * Complete heart block: * This certainly could be contributing the patient's ongoing symptoms of the last few weeks with associated dyspnea on exertion and generalized fatigue. * Thankfully, the patient remains hemodynamically stable and actually relatively hypertensive. * Will allow for permissive hypertension in the setting of complete heart block. Would be hesitant to administer antihypertensives with concern for lack of compensatory mechanism in the form of increasing her heart rate. * Trend troponins every 8 hours. TTE also ordered. * Appreciate cardiology recommendations: Given her current hemodynamic stability, plan to perform permanent pacemaker by EP Sunday. * EKG: Third-degree heart block at a rate of [address] elevations noted. QTc 485 ms. * Monitor on telemetry. RESPIRATORY - * Dyspnea on exertion: * Multifactorial in a patient complete heart block as well as with associated RIGHT-sided pleural effusion. * Question if new pleural effusion related to underlying current cardiac condition. * Patient does follow with pulmonary in the outpatient and was actually scheduled to see them next week. * CXR shows small right pleural effusion, right basilar atelectasisprocalcitonin, CRP ordered to rule out inflammatory etiology for pleural effusion. GI/NUTRITION - * DM diet RENAL/LYTES - * HARJINDER on CKD 3: * Question degree of hypertensive nephropathy. * Gave 20 mEq potassium x2 IV. Continue to trend electrolytes. * Avoid fluid resuscitation in the hypertensive patient. * Patient tolerating p.o. - * No concerns at this time. ENDO - * DMII * BSGs per unit protocol. ISS --> gtt per unit policy. * Given suspicion for sarcoidosis, empiric Solu-Medrol 40 mg IV every 12 hours HEME - * Stable H&H ID - * No concerns of infectious contribution at this time. * Lyme titer negative LINES/IV ACCESS - * PIVs x2 * RIGHT sided a port DVT PROPHYLAXIS - * SCDs (2) Third degree heart block: (3) Acute kidney injury superimposed on CKD: (4) Pleural effusion: (5) History of B-cell lymphoma: (6) Bradycardia: Admission and Anticipated Discharge Date Admission Date: November 25, 2021 Supervising Physician Co-Signing Physician Notes Patient seen and examined with resident physician. Agree with any add itions/exceptions noted: 71-year-old female with history of lymphoma, sarcoidosis and obesity presenting to the hospital due to increasing shortness of breath and signs of complete heart block. Continue ICU monitoring at this time. Etiology of heart block unclear. Possibly related to sarcoidosis although no significant active disease noted on the CT chest. Personal review indicates tiny pulmonary nodules and shotty lymphadenopathy. Will empirically trial 40 mg IV twice daily methylprednisolone. Discussed with cardiology. Plan for pacemaker placement likely Sunday. If she should have hemodynamic compromise, will need a temporary transvenous pacer. Continue with pacer pads at this time. No need for dopamine given that she is hypertensive. She did have a brief run of ventricular ectopy. Given 2 g of IV magnesium and BMP rechecked. Potassium was replaced earlier today and repeat potassium level 4.3. Inflammatory markers checked including CRP which was 1.89. ESR 26. RO level pending. Procalcitonin negative. TSH unremarkable. Lyme antibody titer is negative. Constitutional: Obese appearing female in mild distress. Nasal cannula in place. Eyes: Pupils are equal round and reactive to light. Conjunctivae are normal. Anicteric sclera. Ears nose, mouth and throat: No facial deformities. Neck: Trachea is midline. Visual inspection is normal. Respiratory: Clear to auscultation bilaterally. No use of accessory muscles. No significant clubbing noted. Cardiovascular: Bradycardic. No edema. Gastrointestinal: Normal bowel sounds, soft, nontender and nondistended. No hepatosplenomegaly noted. Musculoskeletal: No cyanosis. Patient is able to move all extremities. Strength is 5 out of 5 in the upper and lower extremities. Skin: No rashes, warm dry and intact. Neurologic: No obvious focal neurological deficits seen. Psychiatric: Mildly anxious. CRITICAL CARE TIME - I have personally spent 36 minutes of critical care time in the direct management of this patient. This is a life/limb threatening event. This includes time spent evaluating patient, direct bedside care, chart review, placing orders, interpretation of diagnostic studies, discussion with consultants, patient, and family members, as well as other required patient management activities. This time is exclusive of all separately billable procedures, and teaching time and separate from and in addition to any other critical care service time. Subjective Today, Tiffani is seated up in bed comfortably. She denies shortness of breath, cough, wheezing, headaches, or dizziness. She has no subjective complaints at this time. Review of Systems Review of Systems: All systems reviewed & are unremarkable except as noted in HPI & below Physical Exam Physical Exam: General: Patient is AAO x3 and in no acute distress. HEENT: Non-erythematous oropharynx; no lymphadenopathy; normal dentition. CV: Bradycardic, regular rhythm. No murmurs gallops or rubs. No pedal edema. Pulmonary: Lungs are clear to auscultation bilaterally. No crackles, rhonchi, or wheezes. Abdomen: Soft, nondistended abdomen. No bruits heard on auscultation. No tenderness to deep palpation. No guarding or rebound. MSK: Full ROM at all joints. Equal 5/5 strength bilaterally. Neuro: No focal findings in CN IIXII. 2+ reflexes at all joints bilaterally. Normal [id number] test. Normal gait. No motor or sensory deficits. Psych: Alert and oriented x3. Congruent mood and affect. Results & Data Results & Data ([facility]) Vital Signs (Past 12 Hours) Vital Signs Temp Pulse Pulse Resp BP BP Pulse Ox 11/26/21 11:45 36 L 17 11/26/21 11:31 36 L 14 181/61 H 11/26/21 11:30 36 L 16 11/26/21 11:15 36 L 15 11/26/21 11:02 36 L 11 L 168/59 H 11/26/21 11:00 36 L 19 11/26/21 10:45 38 L 13 11/26/21 10:31 36 L 15 190/47 H 11/26/21 10:30 37.3 C 38 L 15 11/26/21 10:15 35 L 15 11/26/21 10:01 40 L 13 187/77 H 11/26/21 10:00 39 L 12 11/26/21 09:45 35 L 14 11/26/21 09:31 36 L 19 192/66 H 11/26/21 09:30 36 L 17 11/26/21 09:15 36 L 95 11/26/21 09:01 37 L 16 188/59 H 11/26/21 09:00 36 L 17 11/26/21 08:45 36 L 12 96 11/26/21 08:32 35 L 13 182/66 H 95 11/26/21 08:30 35 L 12 94 11/26/21 08:15 37 L 13 95 11/26/21 08:00 36 L 12 95 11/26/21 07:52 36.6 C 11/26/21 07:48 36 L 8 L 196/60 H 95 11/26/21 07:45 36 L 17 94 11/26/21 07:30 36 L 15 96 11/26/21 07:15 36 L 17 95 11/26/21 07:01 35 L 15 181/61 H 95 11/26/21 07:00 35 L 18 96 11/26/21 06:45 38 L 26 H 95 11/26/21 06:30 42 L 21 96 11/26/21 06:15 39 L 21 94 11/26/21 06:10 40 L 18 94 11/26/21 06:01 41 L 20 179/59 H 95 11/26/21 06:00 40 L 40 L 26 H 179/59 H 95 11/26/21 05:50 40 L 18 94 11/26/21 05:40 40 L 17 95 11/26/21 05:31 38 L 15 190/66 H 92 11/26/21 05:30 39 L 21 91 11/26/21 05:20 39 L 22 94 11/26/21 05:10 40 L 20 92 11/26/21 05:00 41 L 41 L 22 173/64 H 95 11/26/21 04:50 41 L 16 92 11/26/21 04:40 39 L 15 94 11/26/21 04:31 40 L 21 181/68 H 92 11/26/21 04:30 40 L 19 93 11/26/21 04:20 40 L 19 92 11/26/21 04:10 39 L 24 92 11/26/21 04:01 40 L 18 199/66 H 92 11/26/21 04:00 36.7 C 39 L 41 L 26 H 181/68 H 92 11/26/21 03:50 40 L 22 93 11/26/21 03:43 40 L 18 96 11/26/21 03:40 39 L 22 92 11/26/21 03:31 39 L 19 194/61 H 94 11/26/21 03:30 39 L 10 L 95 11/26/21 03:20 39 L 24 92 11/26/21 03:10 39 L 23 91 11/26/21 03:01 39 L 22 194/68 H 93 11/26/21 03:00 40 L 39 L 17 194/68 H 93 11/26/21 02:59 41 L 23 92 11/26/21 02:20 40 L 21 93 11/26/21 02:10 39 L 22 92 11/26/21 02:01 38 L 16 179/70 H 93 11/26/21 02:00 39 L 39 L 17 179/70 H 93 11/26/21 01:50 38 L 16 91 11/26/21 01:40 37 L 19 93 11/26/21 01:31 38 L 18 189/70 H 93 11/26/21 01:30 39 L 19 92 11/26/21 01:20 39 L 17 91 11/26/21 01:10 38 L 23 91 11/26/21 01:01 40 L 18 200/75 H 93 11/26/21 01:00 43 L 39 L 23 189/70 H 189/70 H 92 Resident Activity Tracking Resident Involvement: Resident Care Provided Care Provided: Adult Hospital Medicine
[2021-11-26] MEDS ORDERED: hydrALAZINE HCL 20 MG/ML VIAL IV ONE (15:19)
[2021-11-26] MEDS: MAGNESIUM SULFATE / D5W 1 GM/100 ML BAG IV SCH ×2 (16:16→17:33)
--- NOTE | 2021-11-26 16:30 | Billing Data ---
Date of Service November 26, 2021 Coding Level of Care Code Critical Care 1st 30-74 mins Time Spent (min) 39
[2021-11-26 17:14] LABS: Appearance Urine Clear (Clear); Bacteria Urine Automated 2+ (Negative); Bilirubin Urine Negative (Negative); Blood Urine Negative (Negative); Color Urine Yellow; Epithelial Cell Urine Auto >30 /lpf (0-5); Glucose Urine UA Negative (Negative); Ketones Urine Negative (Negative); Leukocyte Esterase Urine Negative (Negative); Nitrite Urine Negative (Negative); Specific Gravity Urine 1.013 (1.000-1.030); Urobilinogen Urine Negative (Negative); pH Urine 7.5 (4.5-7.5)
[2021-11-26 17:16] LABS: Protein Urine 3+ (Negative)
[2021-11-26 17:24] LABS: Cast Urine Automated 0 /lpf (0-5)
[2021-11-26 17:35] LABS: Potassium 4.3 mmol/L (3.5-5.1)
[2021-11-26 17:36] LABS: BUN Creatinine Ratio 18.2 (10-20); Calcium 9.9 mg/dl (8.5-10.1); Creatinine Clr Calc Pharmacy 48.5 ml/min; Est GFR (African American) 45.5 ml/min; Est GFR (Non-African American) 39.3 ml/min
--- NOTE | 2021-11-26 18:19 | Cardiology Consultation ---
Date of Consultation November 26, 2021 Assessment & Plan (1) Third degree heart block: (2) Aortic stenosis: (3) Essential hypertension: (4) Sarcoid: ASSESSMENT/PLAN: 1. Complete heart block with ventricular escape rhythm: Likely ongoing for the past 2-3 weeks based on symptom onset and heart rate at home in the 30s. No significant symptoms while at rest in bed. Recommend bed rest. Pacer pads in place in case emergent transcutaneous pacing is needed. Recommend permanent pacemaker. Electrophysiology is not available to at this time but given the fact that she is tolerating while at rest, will likely be performed Sunday. Dr. Polo of electrophysiology notified so that this can be arranged when possible. If needed, can proceed with temporary transvenous pacemaker, but currently not necessary. Avoid medications that may slow the heart rate further. Echocardiogram interpretation is pending. TSH normal. 2. Hypertension: Blood pressure elevated but asymptomatic. If becomes symptomatic, would cautiously treat hypertension with non rate-controlling medications. Chronically has been on diltiazem which should be held. 3. Sarcoidosis: Followed by Dr. Infante of pulmonology. Given diagnosis of sarcoidosis and now heart block, would recommend cardiac MRI, which is not available at this facility. 4. Aortic stenosis: She carries a history of aortic stenosis however most recent echo reportedly did not demonstrate such. Repeat echo interpretation is pending. Would not expect significant stenosis based on exam, but rather sclerosis or possible mild stenosis. 5. Disposition: Cardiology will continue to follow along. NPO after midnight Sunday night in anticipation of pacemaker placement on Sunday with electrophysiology. Patient care discussed with Dr. Coto of the Critical Care Team. 50 minutes of critical care time spent, including counseling patient, coordinating care, discussion with critical care team, chart review. History of Present Illness Reason for Consultation: Complete heart block Requesting Physician: Malia Wood Attending Physician: Timbo Johnson MD History of Present Illness Ms. Hawk is a very pleasant 71-year-old female with a history significant for B-cell lymphoma s/p chemo, sarcoidosis (Dr. Infante), uterine cancer (s/p hysterectomy 2005), CKD, type 2 diabetes, hypertension, venous insufficiency, and dyslipidemia. She was admitted on 11/25/2021 with complete heart block. For 3 weeks or so, she has noted fatigue, weakness, palpitations, and exertional dyspnea. She initially thought she may have had COVID-19. There were no fevers. She then had labs and PCP appointment on 11/25/2021 when it was noted that her heart rate was in the 30s. She typically takes diltiazem 360 mg daily and it was recommended at that time to reduce diltiazem but she was referred to the emergency department. Her last dose of diltiazem was on 11/24/2021 in the morning. She has been checking her blood pressure at home and her systolic pressure has been 140s to 160s but her heart rate has been consistently in the 30s, ranging 32-39 over the past 2 weeks, which is not typical for her. In the emergency department, ECG demonstrated complete heart block with ventricular scale rhythm in the 30s. She has been consistently hypertensive with systolic pressures in the 160s to 200s. She denies shortness of breath, syncope, shortness of breath while at rest and in bed. She denies chest discomfort, melena, hematochezia, hematuria, tick bite, vomiting. She has chronic lower extremity swelling occasionally but this has been better controlled on diuretic therapy as an outpatient. Review of systems: As above. Review of systems otherwise negative/unremarkable. Family history: Several family members with CAD in their 50s, including sibling s. Social history: Denies tobacco abuse. Rare alcohol. No drugs. Lives alone. Has a son who does not speak with her. . 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 She was unaccompanied in her ICU bed. Allergies Allergy/AdvReac Type Severity Reaction Status Date / Time cat dander Allergy Intermediate ITCHY Verified 11/25/21 19:09 EYES, SNEEZING, CONGESTION lisinopril AdvReac Intermediate Cough Verified 11/25/21 19:09 Sulfa (Sulfonamide AdvReac Intermediate NAUSEA Verified 11/25/21 19:09 Antibiotics) Home Medications Medication Instructions Recorded Confirmed Type aspirin 81 mg tablet,delayed 81 mg PO HS 10/18/18 11/25/21 History release (Ecotrin Low Strength) pen needle, diabetic 31 gauge x #100 ea 07/29/20 11/25/21 Rx 3/16" (BD Ultra-Fine Mini Pen Needle) polyethylene glycol 3350 17 17 g PO DAILY PRN g 04/11/21 11/25/21 History gram/dose oral powder (Miralax) dulaglutide 1.5 mg/0.5 mL 1.5 mg SQ WK #2 ml 07/02/21 11/25/21 Rx subcutaneous pen injector (Trulicity) glipizide 10 mg tablet 10 mg PO QAM #90 tab 07/04/21 11/25/21 Rx spironolactone 25 1 tab PO DAILY #90 tab 07/04/21 11/25/21 Rx mg-hydrochlorothiazide 25 mg tablet methenamine hippurate 1 gram tablet 1 g PO Q12H #180 tab 07/06/21 11/25/21 Rx conjugated estrogens 0.625 mg/gram See Rx Instructions .ROUTE 10/03/21 11/25/21 Rx vaginal cream (Premarin) .COMPLEX #30 g rosuvastatin 20 mg tablet (Crestor) 20 mg PO HS #90 tab 10/24/21 11/25/21 Rx metformin 1,000 mg tablet 1,000 mg PO Q12H #180 tab 11/04/21 11/25/21 Rx diltiazem HCl 300 mg capsule,24 300 mg PO DAILY #30 cap 11/25/21 11/25/21 Rx hr,extended release insulin glargine U-300 conc 300 80 unit SUBCUT HS 11/25/21 11/25/21 History unit/mL (1.5 mL) subcutaneous pen (Toujeo SoloStar U-300 Insulin) losartan 50 mg tablet 50 mg PO DAILY #30 tab 11/25/21 11/25/21 Rx Patient History Medical History Aortic stenosis MILD CALCIFIC AORTIC STENOSIS NOTED ON 2005 ECHO [facility]. ECHO DONE 10/22/18 SHOWED NO . B-cell lymphoma CKD (chronic kidney disease) stage 3, GFR 30-59 ml/min Essential (primary) hypertension Hyperlipidemia prison current use of insulin LVH (left ventricular hypertrophy) Mediastinal lymphadenopathy Morbid obesity MAX (obstructive sleep apnea) USING CPAP HS 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 Personal history of malignant neoplasm of other parts of uterus Surgical History H/O colonoscopy H/O excision of mass LEFT NECK-DIAGNOSED WITH LYMPHOMA H/O hysterectomy with oophorectomy History of tonsillectomy and adenoidectomy History of total knee arthroplasty right and left Family History Grandfather (Maternal) Family history of diabetes mellitus Family/Other Family history of diabetes mellitus Father Myocardial infarction Denies family history of Ovarian cancer Prostate cancer Breast cancer Colorectal cancer Social History Smoking Status: Never smoker Second Hand Exposure: No; Do You Dip or Chew Tobacco: No; Hx Alcohol Use: Yes Hx Substance Use: No Preferred Language: Icelandic Communication Ability: Effective Visual Impairment: No Limitations Hearing Ability: Normal Voice Instructor Required: No Beliefs That Will Affect Care: None marital status: Current Living Situation: Alone current occupational status: employed current occupation: [employer] Other Information That Helps Us Care for You: No Feels Safe at Home: Yes Safety Concerns: Feels Safe At This Time Childhood Exposure to Second-Hand Smoke: Yes Dental Care, Regularly: Yes Physical Activity Frequency: Does not Exercise Seatbelt Use: always Sunscreen Use: Yes Assistive Devices: None Physical Exam Physical Exam: Gen.: No acute distress. Alert and oriented. HEENT: Anicteric sclera. Neck: No JVD. No bruits. Normal carotid upstrokes bilaterally. Cardiac: PMI was nonpalpable. No ventricular heave. Regular in the 30s. Normal S1-S2. 1/6 early peaking systolic ejection murmur. No rubs or gallops. Pulmonary: Clear to auscultation bilaterally without wheezes, rales, or rhonchi. Abdomen: Soft, nontender, nondistended, with normoactive bowel sounds. No bruits noted. Extremities: 2+ radial pulses bilaterally. 2+ posterior tibialis pulses bilatera lly. No edema or cyanosis. Psychiatric: Affect appears appropriate. Results & Data ([facility]) Vital Signs (Past 12 Hours) Vital Signs Temp Pulse Resp BP Pulse Ox 11/26/21 17:38 36.8 C 11/26/21 17:32 35 L 4 L 197/57 H 89 L 11/26/21 17:30 35 L 9 L 91 11/26/21 17:15 39 L 13 91 11/26/21 17:01 37 L 20 210/62 H 92 11/26/21 17:00 36 L 19 92 11/26/21 16:45 38 L 17 90 11/26/21 16:31 36 L 14 197/62 H 96 11/26/21 16:30 35 L 16 92 11/26/21 16:15 37 L 9 L 91 11/26/21 16:06 34 L 17 215/74 H 90 11/26/21 16:01 33 L 16 193/67 H 92 11/26/21 16:00 38 L 13 90 11/26/21 15:48 40 L 18 208/66 H 88 L 11/26/21 15:45 33 L 4 L 91 11/26/21 15:30 33 L 18 93 11/26/21 15:15 33 L 12 90 11/26/21 15:01 33 L 15 210/79 H 91 11/26/21 15:00 39 L 12 91 11/26/21 14:45 33 L 91 11/26/21 14:31 34 L 187/56 H 11/26/21 14:30 34 L 16 93 11/26/21 14:15 36 L 13 92 11/26/21 14:01 34 L 13 198/66 H 90 11/26/21 14:00 34 L 92 11/26/21 13:45 33 L 91 11/26/21 13:31 34 L 13 176/67 H 90 11/26/21 13:30 34 L 91 11/26/21 13:15 37 L 17 92 11/26/21 13:01 37 L 13 195/53 H 98 11/26/21 13:00 36 L 14 93 11/26/21 12:45 36 L 94 11/26/21 12:31 38 L 11 L 210/72 H 93 11/26/21 12:30 36 L 12 95 11/26/21 12:15 36 L 14 95 11/26/21 12:09 36 L 14 203/62 H 11/26/21 12:00 37 L 13 96 11/26/21 11:45 36 L 17 94 11/26/21 11:31 36 L 14 181/61 H 94 11/26/21 11:30 36 L 16 94 11/26/21 11:15 36 L 15 95 11/26/21 11:02 36 L 11 L 168/59 H 95 11/26/21 11:00 36 L 19 95 03/05/22 10:45 38 L 13 93 11/26/21 10:31 36 L 15 190/47 H 93 11/26/21 10:30 37.3 C 38 L 15 95 11/26/21 10:15 35 L 15 95 11/26/21 10:01 40 L 13 187/77 H 93 11/26/21 10:00 39 L 12 93 11/26/21 09:45 35 L 14 93 11/26/21 09:31 36 L 19 192/66 H 95 11/26/21 09:30 36 L 17 95 11/26/21 09:15 36 L 95 11/26/21 09:01 37 L 16 188/59 H 95 11/26/21 09:00 36 L 17 94 11/26/21 08:45 36 L 12 96 11/26/21 08:32 35 L 13 182/66 H 95 11/26/21 08:30 35 L 12 94 11/26/21 08:15 37 L 13 95 11/26/21 08:00 36 L 12 95 11/26/21 07:52 36.6 C 11/26/21 07:48 36 L 8 L 196/60 H 95 11/26/21 07:45 36 L 17 94 11/26/21 07:30 36 L 15 96 11/26/21 07:15 36 L 17 95 11/26/21 07:01 35 L 15 181/61 H 95 11/26/21 07:00 35 L 18 96 11/26/21 06:45 38 L 26 H 95 11/26/21 06:30 42 L 21 96 Laboratory Results Laboratory Results - last 24 hr 11/25/21 11/25/21 11/25/21 19:05 19:17 19:17 WBC 10.37 RBC 4.03 L Hgb 11.8 L Hct 36.7 L MCV 91.1 MCH 29.3 MCHC 32.2 RDW Std Deviation 60.0 H RDW Coeff of Shruti 17.9 H Plt Count 315 MPV 9.6 Immature Gran % (Auto) 0.2 Neut % (Auto) 80.0 Lymph % (Auto) 12.6 Braxton % (Auto) 5.4 Eos % (Auto) 1.6 Baso % (Auto) 0.2 Neut # (Auto) 8.29 H Lymph # (Auto) 1.31 Braxton # (Auto) 0.56 Eos # (Auto) 0.17 Baso # (Auto) 0.02 Immature Gran # (Auto) 0.02 ESR PT 12.1 H INR 1.1 APTT 25.4 PTT Ratio 0.9 Sodium Potassium Chloride Carbon Dioxide Anion Gap BUN Creatinine Est Cr Clr Drug Dosing Est GFR ( Amer) Est GFR (Non-Af Amer) BUN/Creatinine Ratio Glucose POC Glucose Calcium Magnesium Total Bilirubin AST ALT Alkaline Phosphatase Lactate Dehydrogenase Troponin I C-Reactive Protein B-Natriuretic Peptide Total Protein Albumin Globulin Albumin/Globulin Ratio Lipase Angiotensin Convert Enz Procalcitonin TSH Urine Color Urine Appearance Urine pH Ur Specific [place] Urine Protein Urine Glucose (UA) Urine Ketones Urine Blood Urine Nitrite Urine Bilirubin Urine Urobilinogen Ur Leukocyte Esterase Urine WBC (Auto) Urine RBC (Auto) U Hyaline Cast (Auto) U Epithel Cells (Auto) Urine Bacteria (Auto) Nasal Screen MRSA (PCR) Lyme Disease IgG Ab Lyme Disease IgM Ab Hepatitis C Ab Screen SARS-CoV-2, RNA, NAAT NEGATIVE 11/25/21 11/25/21 11/25/21 19:17 19:17 19:17 WBC RBC Hgb Hct MCV MCH MCHC RDW Std Deviation RDW Coeff of Shruti Plt Count MPV Immature Gran % (Auto) Neut % (Auto) Lymph % (Auto) Braxton % (Auto) Eos % (Auto) Baso % (Auto) Neut # (Auto) Lymph # (Auto) Braxton # (Auto) Eos # (Auto) Baso # (Auto) Immature Gran # (Auto) ESR PT INR APTT PTT Ratio Sodium 139 Potassium 3.9 Chloride 103 Carbon Dioxide 27 Anion Gap 9 BUN 28 H Creatinine 1.46 H Est Cr Clr Drug Dosing Not Reportable Est GFR ( Amer) 42.1 Est GFR (Non-Af Amer) 36.3 BUN/Creatinine Ratio 19.2 Glucose 62 L POC Glucose Calcium 10.4 H Magnesium 1.9 Total Bilirubin 0.4 AST 15 ALT 13 Alkaline Phosphatase 55 Lactate Dehydrogenase Troponin I 0.04 C-Reactive Protein B-Natriuretic Peptide 728 H Total Protein 7.3 Albumin 4.2 Globulin 3.1 Albumin/Globulin Ratio 1.4 Lipase 77 Angiotensin Convert Enz Procalcitonin TSH 4.204 Urine Color Urine Appearance Urine pH Ur Specific [place] Urine Protein Urine Glucose (UA) Urine Ketones Urine Blood Urine Nitrite Urine Bilirubin Urine Urobilinogen Ur Leukocyte Esterase Urine WBC (Auto) Urine RBC (Auto) U Hyaline Cast (Auto) U Epithel Cells (Auto) Urine Bacteria (Auto) Nasal Screen MRSA (PCR) Lyme Disease IgG Ab Lyme Disease IgM Ab Hepatitis C Ab Screen SARS-CoV-2, RNA, NAAT 11/25/21 11/25/21 11/25/21 19:17 21:07 22:30 WBC RBC Hgb Hct MCV MCH MCHC RDW Std Deviation RDW Coeff of Shruti Plt Count MPV Immature Gran % (Auto) Neut % (Auto) Lymph % (Auto) Braxton % (Auto) Eos % (Auto) Baso % (Auto) Neut # (Auto) Lymph # (Auto) Braxton # (Auto) Eos # (Auto) Baso # (Auto) Immature Gran # (Auto) ESR PT INR APTT PTT Ratio Sodium Potassium Chloride Carbon Dioxide Anion Gap BUN Creatinine Est Cr Clr Drug Dosing Est GFR ( Amer) Est GFR (Non-Af Amer) BUN/Creatinine Ratio Glucose POC Glucose 110 H Calcium Magnesium Total Bilirubin AST ALT Alkaline Phosphatase Lactate Dehydrogenase Troponin I C-Reactive Protein B-Natriuretic Peptide Total Protein Albumin Globulin Albumin/Globulin Ratio Lipase Angiotensin Convert Enz Procalcitonin TSH Urine Color Urine Appearance Urine pH Ur Specific [place] Urine Protein Urine Glucose (UA) Urine Ketones Urine Blood Urine Nitrite Urine Bilirubin Urine Urobilinogen Ur Leukocyte Esterase Urine WBC (Auto) Urine RBC (Auto) U Hyaline Cast (Auto) U Epithel Cells (Auto) Urine Bacteria (Auto) Nasal Screen MRSA (PCR) Negative Lyme Disease IgG Ab Negative Lyme Disease IgM Ab Negative Hepatitis C Ab Screen SARS-CoV-2, RNA, NAAT 11/25/21 11/26/21 11/26/21 23:27 04:27 04:27 WBC RBC Hgb Hct MCV MCH MCHC RDW Std Deviation RDW Coeff of Shruti Plt Count MPV Immature Gran % (Auto) Neut % (Auto) Lymph % (Auto) Braxton % (Auto) Eos % (Auto) Baso % (Auto) Neut # (Auto) Lymph # (Auto) Braxton # (Auto) Eos # (Auto) Baso # (Auto) Immature Gran # (Auto) ESR PT INR APTT PTT Ratio Sodium 141 Potassium 3.4 L Chloride 108 H Carbon Dioxide 26 Anion Gap 7 BUN 25 H Creatinine 1.17 Est Cr Clr Drug Dosing 56.8 Est GFR ( Amer) 55.1 Est GFR (Non-Af Amer) 47.5 BUN/Creatinine Ratio 21.4 H Glucose 60 L POC Glucose 82 Calcium 8.6 Magnesium Total Bilirubin 0.4 AST 14 ALT 11 Alkaline Phosphatase 48 Lactate Dehydrogenase Troponin I 0.05 H* C-Reactive Protein B-Natriuretic Peptide Total Protein 6.8 Albumin 3.6 Globulin 3.2 Albumin/Globulin Ratio 1.1 Lipase Angiotensin Convert Enz Procalcitonin TSH Urine Color Urine Appearance Urine pH Ur Specific [place] Urine Protein Urine Glucose (UA) Urine Ketones Urine Blood Urine Nitrite Urine Bilirubin Urine Urobilinogen Ur Leukocyte Esterase Urine WBC (Auto) Urine RBC (Auto) U Hyaline Cast (Auto) U Epithel Cells (Auto) Urine Bacteria (Auto) Nasal Screen MRSA (PCR) Lyme Disease IgG Ab Lyme Disease IgM Ab Hepatitis C Ab Screen Pending SARS-CoV-2, RNA, NAAT 11/26/21 11/26/21 11/26/21 04:27 04:27 04:46 WBC 7.37 RBC 3.39 L Hgb 9.6 L Hct 31.0 L MCV 91.4 MCH 28.3 MCHC 31.0 L RDW Std Deviation 60.9 H RDW Coeff of Shruti 18.0 H Plt Count 267 MPV 9.8 Immature Gran % (Auto) 0.1 Neut % (Auto) 76.3 Lymph % (Auto) 14.5 Braxton % (Auto) 6.0 Eos % (Auto) 3.0 Baso % (Auto) 0.1 Neut # (Auto) 5.62 Lymph # (Auto) 1.07 L Braxton # (Auto) 0.44 Eos # (Auto) 0.22 Baso # (Auto) 0.01 Immature Gran # (Auto) 0.01 ESR 26 PT INR APTT PTT Ratio Sodium Potassium Chloride Carbon Dioxide Anion Gap BUN Creatinine Est Cr Clr Drug Dosing Est GFR ( Amer) Est GFR (Non-Af Amer) BUN/Creatinine Ratio Glucose POC Glucose 75 Calcium Magnesium Total Bilirubin AST ALT Alkaline Phosphatase Lactate Dehydrogenase Troponin I C-Reactive Protein B-Natriuretic Peptide Total Protein Albumin Globulin Albumin/Globulin Ratio Lipase Angiotensin Convert Enz Procalcitonin TSH Urine Color Urine Appearance Urine pH Ur Specific [place] Urine Protein Urine Glucose (UA) Urine Ketones Urine Blood Urine Nitrite Urine Bilirubin Urine Urobilinogen Ur Leukocyte Esterase Urine WBC (Auto) Urine RBC (Auto) U Hyaline Cast (Auto) U Epithel Cells (Auto) Urine Bacteria (Auto) Nasal Screen MRSA (PCR) Lyme Disease IgG Ab Lyme Disease IgM Ab Hepatitis C Ab Screen SARS-CoV-2, RNA, NAAT 11/26/21 11/26/21 11/26/21 05:57 09:13 11:35 WBC RBC Hgb Hct MCV MCH MCHC RDW Std Deviation RDW Coeff of Shruti Plt Count MPV Immature Gran % (Auto) Neut % (Auto) Lymph % (Auto) Braxton % (Auto) Eos % (Auto) Baso % (Auto) Neut # (Auto) Lymph # (Auto) Braxton # (Auto) Eos # (Auto) Baso # (Auto) Immature Gran # (Auto) ESR PT INR APTT PTT Ratio Sodium Potassium Chloride Carbon Dioxide Anion Gap BUN Creatinine Est Cr Clr Drug Dosing Est GFR ( Amer) Est GFR (Non-Af Amer) BUN/Creatinine Ratio Glucose POC Glucose 102 H 95 Calcium Magnesium Total Bilirubin AST ALT Alkaline Phosphatase Lactate Dehydrogenase Troponin I C-Reactive Protein 1.89 H B-Natriuretic Peptide Total Protein Albumin Globulin Albumin/Globulin Ratio Lipase Angiotensin Convert Enz Procalcitonin TSH Urine Color Urine Appearance Urine pH Ur Specific [place] Urine Protein Urine Glucose (UA) Urine Ketones Urine Blood Urine Nitrite Urine Bilirubin Urine Urobilinogen Ur Leukocyte Esterase Urine WBC (Auto) Urine RBC (Auto) U Hyaline Cast (Auto) U Epithel Cells (Auto) Urine Bacteria (Auto) Nasal Screen MRSA (PCR) Lyme Disease IgG Ab Lyme Disease IgM Ab Hepatitis C Ab Screen SARS-CoV-2, RNA, NAAT 11/26/21 11/26/21 11/26/21 11:35 11:35 11:35 WBC RBC Hgb Hct MCV MCH MCHC RDW Std Deviation RDW Coeff of Shruti Plt Count MPV Immature Gran % (Auto) Neut % (Auto) Lymph % (Auto) Braxton % (Auto) Eos % (Auto) Baso % (Auto) Neut # (Auto) Lymph # (Auto) Braxton # (Auto) Eos # (Auto) Baso # (Auto) Immature Gran # (Auto) ESR PT INR APTT PTT Ratio Sodium Potassium Chloride Carbon Dioxide Anion Gap BUN Creatinine Est Cr Clr Drug Dosing Est GFR ( Amer) Est GFR (Non-Af Amer) BUN/Creatinine Ratio Glucose POC Glucose Calcium Magnesium Total Bilirubin AST ALT Alkaline Phosphatase Lactate Dehydrogenase 145 Troponin I C-Reactive Protein B-Natriuretic Peptide Total Protein Albumin Globulin Albumin/Globulin Ratio Lipase Angiotensin Convert Enz Pending Procalcitonin < 0.05 TSH Urine Color Urine Appearance Urine pH Ur Specific [place] Urine Protein Urine Glucose (UA) Urine Ketones Urine Blood Urine Nitrite Urine Bilirubin Urine Urobilinogen Ur Leukocyte Esterase Urine WBC (Auto) Urine RBC (Auto) U Hyaline Cast (Auto) U Epithel Cells (Auto) Urine Bacteria (Auto) Nasal Screen MRSA (PCR) Lyme Disease IgG Ab Lyme Disease IgM Ab Hepatitis C Ab Screen SARS-CoV-2, RNA, NAAT 11/26/21 11/26/21 11/26/21 11:52 12:14 16:40 WBC RBC Hgb Hct MCV MCH MCHC RDW Std Deviation RDW Coeff of Shruti Plt Count MPV Immature Gran % (Auto) Neut % (Auto) Lymph % (Auto) Braxton % (Auto) Eos % (Auto) Baso % (Auto) Neut # (Auto) Lymph # (Auto) Braxton # (Auto) Eos # (Auto) Baso # (Auto) Immature Gran # (Auto) ESR PT INR APTT PTT Ratio Sodium Potassium Chloride Carbon Dioxide Anion Gap BUN Creatinine Est Cr Clr Drug Dosing Est GFR ( Amer) Est GFR (Non-Af Amer) BUN/Creatinine Ratio Glucose POC Glucose 90 Calcium Magnesium Total Bilirubin AST ALT Alkaline Phosphatase Lactate Dehydrogenase Troponin I 0.05 H* C-Reactive Protein B-Natriuretic Peptide Total Protein Albumin Globulin Albumin/Globulin Ratio Lipase Angiotensin Convert Enz Procalcitonin TSH Urine Color Yellow Urine Appearance Clear Urine pH 7.5 Ur Specific [place] 1.013 Urine Protein 3+ H Urine Glucose (UA) Negative Urine Ketones Negative Urine Blood Negative Urine Nitrite Negative Urine Bilirubin Negative Urine Urobilinogen Negative Ur Leukocyte Esterase Negative Urine WBC (Auto) 10-30 H Urine RBC (Auto) 5-10 H U Hyaline Cast (Auto) 0 U Epithel Cells (Auto) >30 H Urine Bacteria (Auto) 2+ H Nasal Screen MRSA (PCR) Lyme Disease IgG Ab Lyme Disease IgM Ab Hepatitis C Ab Screen SARS-CoV-2, RNA, NAAT 11/26/21 11/26/21 16:56 16:59 WBC RBC Hgb Hct MCV MCH MCHC RDW Std Deviation RDW Coeff of Shruti Plt Count MPV Immature Gran % (Auto) Neut % (Auto) Lymph % (Auto) Braxton % (Auto) Eos % (Auto) Baso % (Auto) Neut # (Auto) Lymph # (Auto) Braxton # (Auto) Eos # (Auto) Baso # (Auto) Immature Gran # (Auto) ESR PT INR APTT PTT Ratio Sodium 136 Potassium 4.3 D Chloride 101 Carbon Dioxide 23 Anion Gap 12 H BUN 25 H Creatinine 1.37 H Est Cr Clr Drug Dosing 48.5 Est GFR ( Amer) 45.5 Est GFR (Non-Af Amer) 39.3 BUN/Creatinine Ratio 18.2 Glucose 194 H POC Glucose 198 H Calcium 9.9 Magnesium Total Bilirubin AST ALT Alkaline Phosphatase Lactate Dehydrogenase Troponin I C-Reactive Protein B-Natriuretic Peptide Total Protein Albumin Globulin Albumin/Globulin Ratio Lipase Angiotensin Convert Enz Procalcitonin TSH Urine Color Urine Appearance Urine pH Ur Specific [place] Urine Protein Urine Glucose (UA) Urine Ketones Urine Blood Urine Nitrite Urine Bilirubin Urine Urobilinogen Ur Leukocyte Esterase Urine WBC (Auto) Urine RBC (Auto) U Hyaline Cast (Auto) U Epithel Cells (Auto) Urine Bacteria (Auto) Nasal Screen MRSA (PCR) Lyme Disease IgG Ab Lyme Disease IgM Ab Hepatitis C Ab Screen SARS-CoV-2, RNA, NAAT Diagnostic Findings ECGs personally reviewed as noted above in HPI, demonstrating complete heart block with ventricular escape rhythm. CTA chest 11/25/2021: No PE. Moderate right pleural effusion with atelectasis/collapse of the right lower lobe. Medications Administered Current Inpatient Medications Aspirin (Aspirin 81 Mg Ectab) 81 mg PO HS MICHELLE Stop: 12/25/21 22:42 Last Admin: 11/25/21 23:30 Dose: 81 mg Documented by: Dextrose (Dextrose 50% 50 Ml Syringe) 25 - 50 ml IV UD PRN; Protocol PRN Reason: Hypoglycemia Protocol Stop: 12/25/21 23:39 Glucagon (Glucagon For Inj 1 Mg Vial) 1 mg SQ UD PRN; Protocol PRN Reason: Hypoglycemia Protocol Stop: 12/25/21 23:39 Glucose (Glucose 10 Tabs/Tube) 4 - 8 tabs PO UD PRN; Protocol PRN Reason: Hypoglycemia Protocol Stop: 12/25/21 23:39 Glucose (Glucose 40% Gel 15 Gm Tube) 15 - 30 gm PO UD PRN; Protocol PRN Reason: Hypoglycemia Protocol Stop: 12/25/21 23:39 Heparin Sodium (Porcine) (Heparin 100 Unit/Ml 5ml Flush) 5 ml FLUSH PRN PRN PRN Reason: Flush Stop: 12/26/21 00:45 Methylprednisolone 40 mg/ (Syringe) 0.64 mls @ 1.5 mls/min IV Q12H [facility] Stop: 12/26/21 10:29 Last Admin: 11/26/21 12:02 Dose: 1.5 mls/min Documented by: Magnesium Sulfate/Dextrose (Magnesium Sulfate / D5w) 1 gm in 100 mls @ 50 mls/hr IV Q2H [facility] Stop: 11/26/21 20:29 Last Admin: 11/26/21 17:33 Dose: 100 mls/hr Documented by: Insulin Glargine (Insulin Glargine Solostar 100 Units/Ml 3 Ml Pen) 80 units SC [facility] Stop: 12/26/21 20:59 Miscellaneous (Icu Protocol For Hyperglycemia) 1 ea N/A PRN PRN; Protocol PRN Reason: Hyperglycemia Protocol Stop: 11/27/21 22:42 Miscellaneous (Carbohydrates For Hypoglycemia ) 15 - 30 gm PO UD PRN PRN Reason: Hypoglycemia Protocol Stop: 12/25/21 23:39 Polyethylene Glycol (Polyethylene (Miralax) 17 Gm Pack) 17 gm PO DAILY PRN PRN Reason: Constipation Stop: 12/25/21 22:42 Rosuvastatin Calcium (Rosuvastatin Calcium 20 Mg Tab) 20 mg PO [facility] Stop: 12/25/21 22:42 Last Admin: 11/25/21 23:30 Dose: 20 mg Documented by: PG Care Time/CCT Total # of Minutes Spent Total Time Spent with Patient: Total time spent is greater than 50% in coordination of care (as documented) at patient's floor/unit and/or counseling patient: Critical Care Time: Yes Total Critical Care Time: 50 Coding Level of Care Code None Diagnoses Third degree heart block I44.2 Aortic stenosis I35.0 Essential hypertension I10 Sarcoid D86.9 Additional Codes Critical Care Time - Critical Care Time: Yes ([id number]) Comment [id number]
[2021-11-26] MEDS ORDERED: PHARMACY GLYCEMIC MGMT CONSULT PRN (18:44)
--- NOTE | 2021-11-26 18:46 | Hospitalist Progress Note ---
Date of Service November 26, 2021 Assessment & Plan (1) Third degree heart block: Plan: Third-degree heart block/symptomatic bradycardia/aortic stenosis- Continue in the ICU Hold Cardizem CD Continue pacer pads with pacer at bedside Cardiology planning on pacemaker on Sunday (2) Bradycardia: Plan: See above (3) Acute kidney injury superimposed on CKD: Plan: Creatinine 1.46, with baseline 1.06-1.27. Now improved to 1.17. Hold medications as noted Recheck laboratories in a.m. (4) Diabetes mellitus, type II, insulin dependent: Plan: Noted to be hypoglycemic with glucose 62 upon admission Hold dulaglutide, and Metformin Consult pharmacy for glycemic control in setting of steroid use prescribed by ICU (5) Aortic stenosis: Plan: See above (6) Hyperlipidemia: Plan: Continue rosuvastatin (7) Obstructive sleep apnea: Plan: CPAP at bedtime (8) B-cell lymphoma: Plan: VTE Prophylaxis - deferred to ICU Diet - T2DM, heart healthy Disposition - continued admission to ICU pending pacemaker insertion Admission and Anticipated Discharge Date Admission Date: November 25, 2021 Subjective No current symptoms, concerns or questions. Reports only short of breath on exertion and has been in bed since admission. She reports her biggest complaint is having to use a bed pearce. Review of Systems Review of Systems: All systems reviewed & are unremarkable except as noted in Subjective Physical Exam Constitutional: WD/WN, vitals as above Eyes: + anicteric sclerae; normal pupil size ENMT: external ear and nose normal, oropharynx normal Respiratory: normal respiratory effort, lungs clear to auscultation Cardiovascular: Rate/Rhythm: regular rhythm and + bradycardic Heart Sounds: + murmur (apical systolic 2/6) Gastrointestinal (Abdomen): Percussion/Palpation: abdomen soft; abdomen nontender Skin: no rashes, warm and dry Neurologic: moves all extremities and awake; not confused Psychiatric: A+Ox3, euthymic affect Results & Data Results & Data ([facility]) Vital Signs (Past 12 Hours) Vital Signs Temp Pulse Resp BP Pulse Ox 11/26/21 17:38 36.8 C 11/26/21 17:32 35 L 4 L 197/57 H 89 L 11/26/21 17:30 35 L 9 L 91 11/26/21 17:15 39 L 13 91 11/26/21 17:01 37 L 20 210/62 H 92 11/26/21 17:00 36 L 19 92 11/26/21 16:45 38 L 17 90 11/26/21 16:31 36 L 14 197/62 H 96 11/26/21 16:30 35 L 16 92 11/26/21 16:15 37 L 9 L 91 11/26/21 16:06 34 L 17 215/74 H 90 11/26/21 16:01 33 L 16 193/67 H 92 11/26/21 16:00 38 L 13 90 11/26/21 15:48 40 L 18 208/66 H 88 L 11/26/21 15:45 33 L 4 L 91 11/26/21 15:30 33 L 18 93 11/26/21 15:15 33 L 12 90 11/26/21 15:01 33 L 15 210/79 H 91 11/26/21 15:00 39 L 12 91 11/26/21 14:45 33 L 91 11/26/21 14:31 34 L 187/56 H 11/26/21 14:30 34 L 16 93 11/26/21 14:15 36 L 13 92 11/26/21 14:01 34 L 13 198/66 H 90 11/26/21 14:00 34 L 92 11/26/21 13:45 33 L 91 11/26/21 13:31 34 L 13 176/67 H 90 11/26/21 13:30 34 L 91 11/26/21 13:15 37 L 17 92 11/26/21 13:01 37 L 13 195/53 H 98 11/26/21 13:00 36 L 14 93 11/26/21 12:45 36 L 94 11/26/21 12:31 38 L 11 L 210/72 H 93 11/26/21 12:30 36 L 12 95 11/26/21 12:15 36 L 14 95 11/26/21 12:09 36 L 14 203/62 H 11/26/21 12:00 37 L 13 96 11/26/21 11:45 36 L 17 94 11/26/21 11:31 36 L 14 181/61 H 94 11/26/21 11:30 36 L 16 94 11/26/21 11:15 36 L 15 95 11/26/21 11:02 36 L 11 L 168/59 H 95 11/26/21 11:00 36 L 19 95 11/26/21 10:45 38 L 13 93 11/26/21 10:31 36 L 15 190/47 H 93 11/26/21 10:30 37.3 C 38 L 15 95 11/26/21 10:15 35 L 15 95 11/26/21 10:01 40 L 13 187/77 H 93 11/26/21 10:00 39 L 12 93 11/26/21 09:45 35 L 14 93 11/26/21 09:31 36 L 19 192/66 H 95 11/26/21 09:30 36 L 17 95 11/26/21 09:15 36 L 95 11/26/21 09:01 37 L 16 188/59 H 95 11/26/21 09:00 36 L 17 94 11/26/21 08:45 36 L 12 96 11/26/21 08:32 35 L 13 182/66 H 95 11/26/21 08:30 35 L 12 94 11/26/21 08:15 37 L 13 95 11/26/21 08:00 36 L 12 95 11/26/21 07:52 36.6 C 11/26/21 07:48 36 L 8 L 196/60 H 95 11/26/21 07:45 36 L 17 94 11/26/21 07:30 36 L 15 96 11/26/21 07:15 36 L 17 95 11/26/21 07:01 35 L 15 181/61 H 95 11/26/21 07:00 35 L 18 96 11/26/21 06:45 38 L 26 H 95 PG Care Time/CCT Total # of Minutes Spent Total Time Spent with Patient: Total time spent is greater than 50% in coordination of care (as documented) at patient's floor/unit and/or counseling patient: Coding Level of Care Code 26041 Subseq Hosp Care Lvl 2 Diagnoses Third degree heart block I44.2 Bradycardia R00.1 Acute kidney injury superimposed on CKD N17.9; N18.9 Diabetes mellitus, type II, insulin dependent E11.9; Z79.4 Aortic stenosis I35.0 Hyperlipidemia E78.5 Obstructive sleep apnea G47.33 B-cell lymphoma C85.10
[2021-11-26] MEDS ORDERED: INSULIN GLARGINE SOLOSTAR 100 UNITS/ML 3 ML PEN SC ONE (19:30)
[2021-11-26] MEDS: INSULIN ASPART PER UNIT SC SCH ×2 (20:03→23:43)
[2021-11-26] MEDS: ROSUVASTATIN CALCIUM 20 MG TAB PO SCH (20:07)
[2021-11-26] MEDS: ASPIRIN 81 MG ECTAB PO SCH (20:07)
[2021-11-26] MEDS ORDERED: INSULIN ASPART PER UNIT SC SCH (21:00)
[2021-11-26] MEDS ORDERED: INSULIN GLARGINE SOLOSTAR 100 UNITS/ML 3 ML PEN SC SCH (21:00)
--- NOTE | 2021-11-26 21:26 | XCELERA ---
[id number]
[2021-11-26] MEDS ORDERED: LACTATED RINGER'S 1,000 ML IV SCH (21:45)
[2021-11-26 22:43] LABS: BUN Creatinine Ratio 19.8 (10-20); Calcium 9.5 mg/dl (8.5-10.1); Creatinine Clr Calc Pharmacy 50.7 ml/min; Est GFR (Non-African American) 41.4 ml/min; Magnesium 2.2 mg/dl (1.7-2.4); Phosphorus 3.8 mg/dl (2.5-4.9)
[2021-11-27] MEDS: INSULIN ASPART PER UNIT SC SCH ×6 (04:36→21:06)
[2021-11-27 05:38] LABS: Hematocrit (blood only) 34.8 % (37-47); Immature Granulocytes # (auto) 0.04 K/uL (0.00-0.02); Immature Granulocytes % (auto) 0.5 %; Lymphocytes # (auto) 0.72 K/uL (1.2-3.4); Lymphocytes % (auto) 8.3 %; Mean Corpuscular Hemoglobin 28.7 pg (25-34); Mean Corpuscular Hgb Conc 31.6 g/dL (32-36); Mean Corpuscular Volume 90.9 fL (80-100); Mean Platelet Volume 10.4 fL (7.4-10.4); Monocytes # (auto) 0.14 K/uL (0.11-0.59); Monocytes % (auto) 1.6 %; Neutrophils # (auto) 7.75 K/uL (1.4-6.5); Neutrophils % (auto) 89.6 %; Platelet Count 317 K/uL (130-400); RDW Coefficient of Variation 17.6 % (11.5-14.5); RDW Standard Deviation 58.2 fL (36.4-46.3); Red Blood Count 3.83 M/uL (4.2-5.4); White Blood Count 8.65 K/uL (4.8-10.8)
[2021-11-27] MEDS ORDERED: ceFAZolin 330 MG/ML 1 GM VIAL IV SCH (06:00)
[2021-11-27 06:02] LABS: Troponin I 0.04 ng/ml (0-0.04)
[2021-11-27 06:08] LABS: Albumin Globulin Ratio 1.1 (0.9-2); Albumin Level 3.8 gm/dl (3.4-5.0); BUN Creatinine Ratio 23.1 (10-20); Bilirubin,Total 0.4 mg/dl (0.2-1.0); Calcium 8.6 mg/dl (8.5-10.1); Creatinine Clr Calc Pharmacy 51.1 ml/min; Est GFR (African American) 48.5 ml/min; Est GFR (Non-African American) 41.8 ml/min; Globulin 3.5 gm/dl (2.5-4.0); Magnesium 2.2 mg/dl (1.7-2.4); Phosphorus 4.3 mg/dl (2.5-4.9); Potassium 4.1 mmol/L (3.5-5.1); Total Protein 7.3 gm/dl (6.0-8.3)
--- NOTE | 2021-11-27 06:13 | Electrocardiogram Report ---
Test Reason : Blood Pressure : / mmHG Vent. Rate : 050 BPM Atrial Rate : 091 BPM P-R Int : 000 ms QRS Dur : 144 ms QT Int : 530 ms P-R-T Axes : 000 109 122 degrees QTc Int : 483 ms Sinus rhythm with A-V dissociation / Complete heart block and ventricular escape rhythm with occasio nal Premature ventricular complexes Rightward axis Non-specific intra-ventricular conduction block Abnormal ECG When compared with ECG of 18-OCT-2018 09:49, A-V dissociation is now present Ventricular escape rhythm is now present Vent. rate has decreased BY 28 BPM Confirmed by Dashawn Lopez ([id number]) on 11/27/2021 6:13:43 AM Referred By: REFERRED SELF Confirmed By:Dashawn Lopez
--- NOTE | 2021-11-27 06:18 | Electrocardiogram Report ---
Test Reason : Blood Pressure : / mmHG Vent. Rate : 036 BPM Atrial Rate : 085 BPM P-R Int : 000 ms QRS Dur : 156 ms QT Int : 520 ms P-R-T Axes : 027 113 167 degrees QTc Int : 402 ms Sinus rhythm with complete heart block and Idioventricular rhythm Right bundle branch block Left posterior fascicular block Bifascicular block Septal infarct , age undetermined T wave abnormality, consider lateral ischemia Abnormal ECG When compared with ECG of 25-NOV-2021 17:48, Premature ventricular complexes are no longer Present Confirmed by Dashawn Lopez ([id number]) on 11/27/2021 6:17:41 AM Referred By: REFERRED SELF Confirmed By:Dashawn Lopez
--- NOTE | 2021-11-27 09:31 | Critical Care Progress Note ---
Date of Service November 27, 2021 Assessment & Plan (1) Admitted to intensive care unit: Plan: Reason Critically Ill: 71-year-old female presenting in complete heart block requiring close hemodynamic monitoring with potential need for intervention. NEURO - * CAM ICU: NEGATIVE CARDIAC/VASCULAR - * Complete heart block and periods of nonsustained ventricular tachycardia. Pacer pads in place. Continue close ICU monitoring.Electrolytes within normal limits. Etiology unclear. Possibly related to sarcoidosis although no signs of disease on CT chest. Empirically on 40 mg twice daily IV Solu-Medrol. TSH unremarkable. Lyme antibody unremarkable. ESR normal. CRP minimally elevated. RO level pending. Will need a cardiac MRI as an outpatient. Plan for permanent pacemaker placement Sunday with EP. Should she decompensate, can consider transvenous pacemaker temporarily. Echo reviewed with grade 2 diastolic dysfunction and possible pulmonary hypertension. RESPIRATORY - * Dyspnea on exertion: * Multifactorial in a patient complete heart block as well as with associated RIGHT-sided pleural effusion. Ultrasound performed of the right hemithorax. Effusion small unlikely to benefit from thoracentesis at this time. Consider thoracentesis in the future if symptoms worsen or effusion enlarges. Effusion likely related to CHF. Continue CPAP at night for history of MAX GI/NUTRITION - * DM diet RENAL/LYTES - * Electrolytes within normal range. Mild HARJINDER improving. - * No concerns at this time. ENDO - * DMII * BSGs per unit protocol. ISS --> gtt per unit policy. HEME - * Stable H&H ID - * Blood cultures pending. Urinalysis with 2+ bacteria. Patient denies overt UTI symptoms. Will await cultures. No signs of sepsis. She did grow Enterococcus 11/10/2024 urine. * Lyme titer negative LINES/IV ACCESS - * PIVs x2 * RIGHT sided a port DVT PROPHYLAXIS - * SCDs CRITICAL CARE TIME - I have personally spent 32 minutes of critical care time in the direct management of this patient. This is a life/limb threatening event. This includes time spent evaluating patient, direct bedside care, chart review, placing orders, interpretation of diagnostic studies, discussion with consultants, patient, and family members, as well as other required patient management activities. This time is exclusive of all separately billable procedures, and teaching time and separate from and in addition to any other critical care service time. (2) Third degree heart block: (3) Acute kidney injury superimposed on CKD: (4) Pleural effusion: (5) History of B-cell lymphoma: (6) Bradycardia: Admission and Anticipated Discharge Date Admission Date: November 25, 2021 Subjective Patient seen and examined at bedside. She had a fluttering sensation in her chest and short runs of nonsustained ventricular tachycardia last night. No fevers or chills. No chest pain at this time. Tolerating diet. Review of Systems Review of Systems: All systems reviewed & are unremarkable except as noted in HPI & below Physical Exam Physical Exam: Constitutional: Obese appearing female in mild distress. Nasal cannula in place. Eyes: Pupils are equal round and reactive to light. Conjunctivae are normal. Anicteric sclera. Ears nose, mouth and throat: No facial deformities. Neck: Trachea is midline. Visual inspection is normal. Respiratory: Clear to auscultation bilaterally. No use of accessory muscles. No significant clubbing noted. Cardiovascular: Bradycardic. No edema. Gastrointestinal: Normal bowel sounds, soft, nontender and nondistended. No hepatosplenomegaly noted. Musculoskeletal: No cyanosis. Patient is able to move all extremities. Strength is 5 out of 5 in the upper and lower extremities. Skin: No rashes, warm dry and intact. Neurologic: No obvious focal neurological deficits seen. Psychiatric: Alert and oriented x3. Normal mood. Results & Data Results & Data ([facility]) Vital Signs (Past 12 Hours) Vital Signs Temp Pulse Pulse Resp BP BP Pulse Ox 11/27/21 07:28 36.4 C L 11/27/21 06:34 37 L 13 174/65 H 91 11/27/21 06:30 32 L 9 L 94 11/27/21 06:15 33 L 17 95 11/27/21 06:00 40 L 18 176/70 H 95 11/27/21 05:45 34 L 16 93 11/27/21 05:30 37 L 24 96 11/27/21 05:15 39 L 13 95 11/27/21 05:01 40 L 14 189/72 H 94 11/27/21 05:00 31 L 16 95 11/27/21 04:45 32 L 13 94 11/27/21 04:31 31 L 18 178/82 H 94 11/27/21 04:30 31 L 17 96 11/27/21 04:15 30 L 15 94 11/27/21 04:01 30 L 21 156/61 H 91 11/27/21 04:00 37.0 C 30 L 17 172/78 H 92 11/27/21 03:45 30 L 14 94 11/27/21 03:30 30 L 19 93 11/27/21 03:28 31 L 22 94 11/27/21 03:15 31 L 15 94 11/27/21 03:01 31 L 12 165/66 H 93 11/27/21 03:00 31 L 32 L 13 165/66 H 93 11/27/21 02:45 31 L 13 93 11/27/21 02:32 31 L 12 176/69 H 95 11/27/21 02:30 31 L 5 L 93 11/27/21 02:15 30 L 16 91 11/27/21 02:01 36.7 C 35 L 14 173/60 H 95 11/27/21 02:00 31 L 34 L 9 L 173/60 H 94 11/27/21 01:45 31 L 16 93 11/27/21 01:31 34 L 15 171/59 H 94 11/27/21 01:30 33 L 15 92 11/27/21 01:15 28 L 14 93 11/27/21 01:01 33 L 14 159/58 H 92 11/27/21 01:00 32 L 31 L 16 179/59 H 93 11/27/21 00:45 30 L 11 L 93 11/27/21 00:43 39 L 16 166/60 H 92 11/27/21 00:30 35 L 20 94 11/27/21 00:15 36 L 21 11/27/21 00:01 35 L 15 162/81 H 91 11/27/21 00:00 37 L 20 90 11/26/21 23:45 39 L 22 92 11/26/21 23:31 38 L 12 174/68 H 93 11/26/21 23:30 39 L 18 91 11/26/21 23:21 39 L 11/26/21 23:15 37 L 15 90 11/26/21 23:00 39 L 18 189/69 H 92 11/26/21 22:51 41 L 39 H 92 11/26/21 22:45 30 L 40 H 93 11/26/21 22:43 39 L 16 186/61 H 94 11/26/21 22:31 41 L 19 186/61 H 93 03/05/22 22:30 40 L 18 94 11/26/21 22:15 42 L 12 94 11/26/21 22:02 40 L 24 195/69 H 93 11/26/21 22:00 39 L 19 194/64 H 93 11/26/21 21:45 34 L 17 92 11/26/21 21:30 38 L 19 95 Coding Level of Care Code Critical Care 1st 30-74 mins Diagnoses Admitted to intensive care unit Z78.9 Third degree heart block I44.2 Acute kidney injury superimposed on CKD N17.9; N18.9 Pleural effusion J90 History of B-cell lymphoma Z85.72 Bradycardia R00.1 Time Spent (min) 32
--- NOTE | 2021-11-27 10:37 | Cardiology Progress Note ---
Date of Service November 27, 2021 Assessment & Plan (1) Third degree heart block: (2) Aortic stenosis: (3) Essential hypertension: (4) Sarcoid: (5) Nonsustained ventricular tachycardia: Plan: ASSESSMENT/PLAN: 1. Complete heart block with ventricular escape rhythm: Likely ongoing for the past 2-3 weeks based on symptom onset and heart rate at home in the 30s. No significant symptoms while at rest in bed. Recommend bed rest. Recommend pacer pads in case emergently needed for transcutaneous pacing. Recommend permanent pacemaker. If needed, can proceed with temporary transvenous pacemaker, but currently not necessary. Avoid medications that may slow the heart rate further. Dr. Polo plans on pacemaker on 11/28/2021 in the morning. Discussed with patient and she is agreeable to proceed. He will meet with her tomorrow morning. NPO after midnight. 2. Hypertension: Blood pressure elevated but asymptomatic. Once pacemaker in place, can more aggressively manage her hypertension. Given diabetes, consider RO-inhibitor or ARB. Has chronically been on diltiazem. If continues to have brief episodes of nonsustained ventricular tachycardia, can resume diltiazem or initiate low-dose beta-sonja. 3. Sarcoidosis: Followed by Dr. Infante of pulmonology. Given diagnosis of sarcoidosis and now heart block, would recommend cardiac MRI, which is not available at this facility. 4. Aortic stenosis: Mild aortic stenosis and non severe mitral regurgitation. Can repeat echo in 3-5 years as an outpatient, or sooner for change in clinical status. 5. Nonsustained ventricular tachycardia: Runs of 3-4 beats at most noted on telemetry. Can resume diltiazem once pacemaker in place, or consider low-dose beta-sonja in place of diltiazem. 6. Disposition: NPO after midnight Sunday night in anticipation of pacemaker placement on Sunday with electrophysiology. Patient care discussed with Dr. Coto of the Critical Care Team. Electrophysiology will resume her cardiology care tomorrow. Admission and Anticipated Discharge Date Admission Date: November 25, 2021 Subjective Patient seen this morning. She had brief palpitations intermittently lasting only a couple of seconds. On telemetry, she was noted to have PVCs and very short runs of ventricular tachycardia of 3-4 beats. She has dyspnea with exertion but denies shortness of breath at rest. She denies chest pain, syncope, near-syncope. Review of systems: As above. Physical Exam Physical Exam: Gen.: No acute distress. Alert and oriented. HEENT: Anicteric sclera. Neck: No JVD. Cardiac: PMI was nonpalpable. No ventricular heave. Regular. Heart rate in the 30s. Normal S1-S2. 1/6 early peaking systolic ejection murmur. No rubs or gallops. Pulmonary: Clear to auscultation bilaterally without wheezes, rales, or rhonchi. Abdomen: Soft, nontender, nondistended, with normoactive bowel sounds. No bruits noted. Extremities: 2+ radial pulses bilaterally. 2+ posterior tibialis pulses bilaterally. No edema or cyanosis. Psychiatric: Affect appears appropriate. Results & Data ([facility]) Vital Signs (Past 12 Hours) Vital Signs Temp Pulse Pulse Resp BP BP Pulse Ox 11/27/21 07:28 36.4 C L 11/27/21 06:34 37 L 13 174/65 H 91 11/27/21 06:30 32 L 9 L 94 11/27/21 06:15 33 L 17 95 11/27/21 06:00 40 L 18 176/70 H 95 11/27/21 05:45 34 L 16 93 11/27/21 05:30 37 L 24 96 11/27/21 05:15 39 L 13 95 11/27/21 05:01 40 L 14 189/72 H 94 11/27/21 05:00 31 L 16 95 11/27/21 04:45 32 L 13 94 11/27/21 04:31 31 L 18 178/82 H 94 11/27/21 04:30 31 L 17 96 11/27/21 04:15 30 L 15 94 11/27/21 04:01 30 L 21 156/61 H 91 11/27/21 04:00 37.0 C 30 L 17 172/78 H 92 11/27/21 03:45 30 L 14 94 11/27/21 03:30 30 L 19 93 11/27/21 03:28 31 L 22 94 11/27/21 03:15 31 L 15 94 11/27/21 03:01 31 L 12 165/66 H 93 11/27/21 03:00 31 L 32 L 13 165/66 H 93 11/27/21 02:45 31 L 13 93 11/27/21 02:32 31 L 12 176/69 H 95 11/27/21 02:30 31 L 5 L 93 11/27/21 02:15 30 L 16 91 11/27/21 02:01 36.7 C 35 L 14 173/60 H 95 11/27/21 02:00 31 L 34 L 9 L 173/60 H 94 11/27/21 01:45 31 L 16 93 11/27/21 01:31 34 L 15 171/59 H 94 11/27/21 01:30 33 L 15 92 11/27/21 01:15 28 L 14 93 11/27/21 01:01 33 L 14 159/58 H 92 11/27/21 01:00 32 L 31 L 16 179/59 H 93 11/27/21 00:45 30 L 11 L 93 11/27/21 00:43 39 L 16 166/60 H 92 11/27/21 00:30 35 L 20 94 11/27/21 00:15 36 L 21 11/27/21 00:01 35 L 15 162/81 H 91 11/27/21 00:00 37 L 20 90 11/26/21 23:45 39 L 22 92 11/26/21 23:31 38 L 12 174/68 H 93 11/26/21 23:30 39 L 18 91 11/26/21 23:21 39 L 11/26/21 23:15 37 L 15 90 11/26/21 23:00 39 L 18 189/69 H 92 11/26/21 22:51 41 L 39 H 92 11/26/21 22:45 30 L 40 H 93 11/26/21 22:43 39 L 16 186/61 H 94 Laboratory Results Laboratory Results - last 24 hr 11/26/21 11/26/21 11/26/21 04:27 11:35 11:35 WBC RBC Hgb Hct MCV MCH MCHC RDW Std Deviation RDW Coeff of Shruti Plt Count MPV Immature Gran % (Auto) Neut % (Auto) Lymph % (Auto) [place] % (Auto) Eos % (Auto) Baso % (Auto) Neut # (Auto) Lymph # (Auto) [place] # (Auto) Eos # (Auto) Baso # (Auto) Immature Gran # (Auto) ESR 26 Sodium Potassium Chloride Carbon Dioxide Anion Gap BUN Creatinine Est Cr Clr Drug Dosing Est GFR ( Amer) Est GFR (Non-Af Amer) BUN/Creatinine Ratio Glucose POC Glucose Calcium Phosphorus Magnesium Total Bilirubin AST ALT Alkaline Phosphatase Lactate Dehydrogenase Troponin I C-Reactive Protein 1.89 H Total Protein Albumin Globulin Albumin/Globulin Ratio Angiotensin Convert Enz Pending Procalcitonin Urine Color Urine Appearance Urine pH Ur Specific [place] Urine Protein Urine Glucose (UA) Urine Ketones Urine Blood Urine Nitrite Urine Bilirubin Urine Urobilinogen Ur Leukocyte Esterase Urine WBC (Auto) Urine RBC (Auto) U Hyaline Cast (Auto) U Epithel Cells (Auto) Urine Bacteria (Auto) 11/26/21 11/26/21 11/26/21 11:35 11:35 11:52 WBC RBC Hgb Hct MCV MCH MCHC RDW Std Deviation RDW Coeff of Shruti Plt Count MPV Immature Gran % (Auto) Neut % (Auto) Lymph % (Auto) [place] % (Auto) Eos % (Auto) Baso % (Auto) Neut # (Auto) Lymph # (Auto) [place] # (Auto) Eos # (Auto) Baso # (Auto) Immature Gran # (Auto) ESR Sodium Potassium Chloride Carbon Dioxide Anion Gap BUN Creatinine Est Cr Clr Drug Dosing Est GFR ( Amer) Est GFR (Non-Af Amer) BUN/Creatinine Ratio Glucose POC Glucose Calcium Phosphorus Magnesium Total Bilirubin AST ALT Alkaline Phosphatase Lactate Dehydrogenase 145 Troponin I 0.05 H* C-Reactive Protein Total Protein Albumin Globulin Albumin/Globulin Ratio Angiotensin Convert Enz Procalcitonin < 0.05 Urine Color Urine Appearance Urine pH Ur Specific [place] Urine Protein Urine Glucose (UA) Urine Ketones Urine Blood Urine Nitrite Urine Bilirubin Urine Urobilinogen Ur Leukocyte Esterase Urine WBC (Auto) Urine RBC (Auto) U Hyaline Cast (Auto) U Epithel Cells (Auto) Urine Bacteria (Auto) 11/26/21 11/26/21 11/26/21 12:14 16:40 16:56 WBC RBC Hgb Hct MCV MCH MCHC RDW Std Deviation RDW Coeff of Shruti Plt Count MPV Immature Gran % (Auto) Neut % (Auto) Lymph % (Auto) [place] % (Auto) Eos % (Auto) Baso % (Auto) Neut # (Auto) Lymph # (Auto) [place] # (Auto) Eos # (Auto) Baso # (Auto) Immature Gran # (Auto) ESR Sodium Potassium Chloride Carbon Dioxide Anion Gap BUN Creatinine Est Cr Clr Drug Dosing Est GFR ( Amer) Est GFR (Non-Af Amer) BUN/Creatinine Ratio Glucose POC Glucose 90 198 H Calcium Phosphorus Magnesium Total Bilirubin AST ALT Alkaline Phosphatase Lactate Dehydrogenase Troponin I C-Reactive Protein Total Protein Albumin Globulin Albumin/Globulin Ratio Angiotensin Convert Enz Procalcitonin Urine Color Yellow Urine Appearance Clear Urine pH 7.5 Ur Specific [place] 1.013 Urine Protein 3+ H Urine Glucose (UA) Negative Urine Ketones Negative Urine Blood Negative Urine Nitrite Negative Urine Bilirubin Negative Urine Urobilinogen Negative Ur Leukocyte Esterase Negative Urine WBC (Auto) 10-30 H Urine RBC (Auto) 5-10 H U Hyaline Cast (Auto) 0 U Epithel Cells (Auto) >30 H Urine Bacteria (Auto) 2+ H 11/26/21 11/26/21 11/26/21 16:59 19:56 20:21 WBC RBC Hgb Hct MCV MCH MCHC RDW Std Deviation RDW Coeff of Shruti Plt Count MPV Immature Gran % (Auto) Neut % (Auto) Lymph % (Auto) [place] % (Auto) Eos % (Auto) Baso % (Auto) Neut # (Auto) Lymph # (Auto) [place] # (Auto) Eos # (Auto) Baso # (Auto) Immature Gran # (Auto) ESR Sodium 136 Potassium 4.3 D Chloride 101 Carbon Dioxide 23 Anion Gap 12 H BUN 25 H Creatinine 1.37 H Est Cr Clr Drug Dosing 48.5 Est GFR ( Amer) 45.5 Est GFR (Non-Af Amer) 39.3 BUN/Creatinine Ratio 18.2 Glucose 194 H POC Glucose 240 H Calcium 9.9 Phosphorus Magnesium Total Bilirubin AST ALT Alkaline Phosphatase Lactate Dehydrogenase Troponin I 0.04 C-Reactive Protein Total Protein Albumin Globulin Albumin/Globulin Ratio Angiotensin Convert Enz Procalcitonin Urine Color Urine Appearance Urine pH Ur Specific [place] Urine Protein Urine Glucose (UA) Urine Ketones Urine Blood Urine Nitrite Urine Bilirubin Urine Urobilinogen Ur Leukocyte Esterase Urine WBC (Auto) Urine RBC (Auto) U Hyaline Cast (Auto) U Epithel Cells (Auto) Urine Bacteria (Auto) 11/26/21 11/26/21 11/27/21 22:10 23:36 04:28 WBC RBC Hgb Hct MCV MCH MCHC RDW Std Deviation RDW Coeff of Shruti Plt Count MPV Immature Gran % (Auto) Neut % (Auto) Lymph % (Auto) [place] % (Auto) Eos % (Auto) Baso % (Auto) Neut # (Auto) Lymph # (Auto) [place] # (Auto) Eos # (Auto) Baso # (Auto) Immature Gran # (Auto) ESR Sodium 136 134 L Potassium 4.0 4.1 Chloride 102 100 Carbon Dioxide 24 24 Anion Gap 10 10 BUN 26 H 30 H Creatinine 1.31 H 1.30 H Est Cr Clr Drug Dosing 50.7 51.1 Est GFR ( Amer) 48.0 48.5 Est GFR (Non-Af Amer) 41.4 41.8 BUN/Creatinine Ratio 19.8 23.1 H Glucose 216 H 161 H POC Glucose 205 H Calcium 9.5 8.6 Phosphorus 3.8 4.3 Magnesium 2.2 2.2 Total Bilirubin 0.4 AST 15 ALT 12 Alkaline Phosphatase 51 Lactate Dehydrogenase Troponin I 0.04 C-Reactive Protein Total Protein 7.3 Albumin 3.8 Globulin 3.5 Albumin/Globulin Ratio 1.1 Angiotensin Convert Enz Procalcitonin Urine Color Urine Appearance Urine pH Ur Specific [place] Urine Protein Urine Glucose (UA) Urine Ketones Urine Blood Urine Nitrite Urine Bilirubin Urine Urobilinogen Ur Leukocyte Esterase Urine WBC (Auto) Urine RBC (Auto) U Hyaline Cast (Auto) U Epithel Cells (Auto) Urine Bacteria (Auto) 11/27/21 11/27/21 11/27/21 04:28 04:30 07:27 WBC 8.65 RBC 3.83 L Hgb 11.0 L Hct 34.8 L MCV 90.9 MCH 28.7 MCHC 31.6 L RDW Std Deviation 58.2 H RDW Coeff of Shruti 17.6 H Plt Count 317 MPV 10.4 Immature Gran % (Auto) 0.5 Neut % (Auto) 89.6 Lymph % (Auto) 8.3 [place] % (Auto) 1.6 Eos % (Auto) 0.0 Baso % (Auto) 0.0 Neut # (Auto) 7.75 H Lymph # (Auto) 0.72 L [place] # (Auto) 0.14 Eos # (Auto) 0.00 Baso # (Auto) 0.00 Immature Gran # (Auto) 0.04 H ESR Sodium Potassium Chloride Carbon Dioxide Anion Gap BUN Creatinine Est Cr Clr Drug Dosing Est GFR ( Amer) Est GFR (Non-Af Amer) BUN/Creatinine Ratio Glucose POC Glucose 168 H 242 H Calcium Phosphorus Magnesium Total Bilirubin AST ALT Alkaline Phosphatase Lactate Dehydrogenase Troponin I C-Reactive Protein Total Protein Albumin Globulin Albumin/Globulin Ratio Angiotensin Convert Enz Procalcitonin Urine Color Urine Appearance Urine pH Ur Specific [place] Urine Protein Urine Glucose (UA) Urine Ketones Urine Blood Urine Nitrite Urine Bilirubin Urine Urobilinogen Ur Leukocyte Esterase Urine WBC (Auto) Urine RBC (Auto) U Hyaline Cast (Auto) U Epithel Cells (Auto) Urine Bacteria (Auto) Diagnostic Findings Telemetry personally reviewed: Sinus rhythm with complete heart block. PVCs and rare nonsustained ventricular tachycardia of 3-4 beats. Echo 11/26/2021: Mildly dilated LV. EF 55-60%. Normal wall motion. Moderate LVH. Mildly dilated RV with normal systolic function. Mild biatrial dilation. Mild . Mild to moderate MR. RVSP 43. Medications Administered Current Inpatient Medications Aspirin (Aspirin 81 Mg Ectab) 81 mg PO HS MICHELLE Stop: 12/25/21 22:42 Last Admin: 11/26/21 20:07 Dose: 81 mg Documented by: Cefazolin Sodium (Cefazolin 330 Mg/Ml 1 Gm Vial) 2,000 mg IV PREOP MICHELLE; Protocol Stop: 11/29/21 05:59 Dextrose (Dextrose 50% 50 Ml Syringe) 25 - 50 ml IV UD PRN; Protocol PRN Reason: Hypoglycemia Protocol Stop: 12/25/21 23:39 Glucagon (Glucagon For Inj 1 Mg Vial) 1 mg SQ UD PRN; Protocol PRN Reason: Hypoglycemia Protocol Stop: 12/25/21 23:39 Glucose (Glucose 10 Tabs/Tube) 4 - 8 tabs PO UD PRN; Protocol PRN Reason: Hypoglycemia Protocol Stop: 12/25/21 23:39 Glucose (Glucose 40% Gel 15 Gm Tube) 15 - 30 gm PO UD PRN; Protocol PRN Reason: Hypoglycemia Protocol Stop: 12/25/21 23:39 Heparin Sodium (Porcine) (Heparin 100 Unit/Ml 5ml Flush) 5 ml FLUSH PRN PRN PRN Reason: Flush Stop: 12/26/21 00:45 Methylprednisolone 40 mg/ (Syringe) 0.64 mls @ 1.5 mls/min IV Q12H MICHELLE Stop: 12/26/21 10:29 Last Admin: 11/26/21 23:41 Dose: 1.5 mls/min Documented by: Lactated Ringer's (Lr) 1,000 mls @ 15 mls/hr IV .Q24H MICHELLE Stop: 12/01/21 00:39 Insulin Aspart (Insulin Aspart Per Unit) 0 units SC ACHS MICHELLE Stop: 12/26/21 20:59 Last Admin: 11/27/21 07:32 Dose: 19 units Documented by: Miscellaneous (Icu Protocol For Hyperglycemia) 1 ea N/A PRN PRN; Protocol PRN Reason: Hyperglycemia Protocol Stop: 11/27/21 22:42 Miscellaneous (Carbohydrates For Hypoglycemia ) 15 - 30 gm PO UD PRN PRN Reason: Hypoglycemia Protocol Stop: 12/25/21 23:39 Miscellaneous Information (Pharmacy Glycemic Mgmt Consult) 1 ea N/A UD PRN PRN Reason: Consult Stop: 12/26/21 18:43 Polyethylene Glycol (Polyethylene (Miralax) 17 Gm Pack) 17 gm PO DAILY PRN PRN Reason: Constipation Stop: 12/25/21 22:42 Rosuvastatin Calcium (Rosuvastatin Calcium 20 Mg Tab) 20 mg PO HS MICHELLE Stop: 12/25/21 22:42 Last Admin: 11/26/21 20:07 Dose: 20 mg Documented by: PG Care Time/CCT Total # of Minutes Spent Total Time Spent with Patient: Total time spent is greater than 50% in coordination of care (as documented) at patient's floor/unit and/or counseling patient: Coding Level of Care Code 29857 Subseq Hosp Care Lvl 3 Diagnoses Third degree heart block I44.2 Aortic stenosis I35.0 Essential hypertension I10 Sarcoid D86.9 Nonsustained ventricular tachycardia I47.2
[2021-11-27] MEDS: methylPREDNISolone 40 MG in SYRINGE 0 ML IV SCH ×2 (11:15→22:38)
--- NOTE | 2021-11-27 14:53 | Pharmacy Report ---
Pharmacy Glycemic Short Note 2 - Date of Service November 27, 2021 - Glycemic Short BSG Results (Last 24 hours): 11/26/21 11/26/21 11/26/21 16:56 16:59 19:56 Glucose 194 H POC Glucose 198 H 240 H 11/26/21 11/26/21 11/27/21 22:10 23:36 04:28 Glucose 216 H 161 H POC Glucose 205 H 11/27/21 11/27/21 11/27/21 04:30 07:27 11:22 Glucose POC Glucose 168 H 242 H 242 H OUTPATIENT ANTIDIABETIC REGIMEN: * Lantus 80 units HS * Trulicity every Sunday * metformin * HbA1C = 6.3% ASSESSMENT: * Patient's BSGs yesterday were [phone] mg/dL and overnight were 205- 168 mg/L. * Today's BSGs are 242 - 242 mg/dL. * Remains on Solu-Medrol 40 IV q12. * Patient received 50 units of basal yesterday. Home dose is 80 units/day which most likely represents all of her insulin requirements. Will give 40 units tonight as she will be NPO tomorrow. * Tighten Novolog significantly since Lantus dosing is not as aggressive. * Overnight checks to ensure 24 hour coverage. PLAN FOR INPATIENT GLYCEMIC CONTROL: * Hold outpatient oral diabetes medications * Basal insulin * Lantus 40 units SQ HS * Bolus insulin * NovoLog per scale ACHS or Q6hrs while NPO * Goal Range: Low 110 mg/dL - High 140 mg/dL * Correction Factor: 12 mg/dL/unit * Nutritional / Prandial insulin per carb ratio of 1 unit per 3 grams CHO consumed
--- NOTE | 2021-11-27 16:40 | Hospitalist Progress Note ---
Date of Service November 27, 2021 Assessment & Plan (1) Third degree heart block: Plan: Third-degree heart block/symptomatic bradycardia/aortic stenosis- Continue in the ICU Hold Cardizem CD Continue pacer pads with pacer at bedside Cardiology planning on pacemaker on Sunday (2) Bradycardia: Plan: See above (3) Acute kidney injury superimposed on CKD: Plan: Creatinine 1.46, with baseline 1.06-1.27. Now improved to 1.17. Hold medications as noted Recheck laboratories in a.m. (4) Diabetes mellitus, type II, insulin dependent: Plan: Noted to be hypoglycemic with glucose 62 upon admission Hold dulaglutide, and Metformin Consult pharmacy for glycemic control in setting of steroid use prescribed by ICU (5) Aortic stenosis: Plan: See above (6) Hyperlipidemia: Plan: Continue rosuvastatin (7) Obstructive sleep apnea: Plan: CPAP at bedtime (8) B-cell lymphoma: Plan: VTE Prophylaxis - deferred to ICU Diet - T2DM, heart healthy, NPO @ midnight Disposition - continued admission to ICU pending pacemaker insertion Admission and Anticipated Discharge Date Admission Date: November 25, 2021 Subjective No chest pain, shortness of breath or dizziness. Main concern is suprapubic tenderness and feeling she needs to pass urine but can't. Bladder scanned for 1L. Having bowel movements. Review of Systems Review of Systems: All systems reviewed & are unremarkable except as noted in Subjective Physical Exam Constitutional: WD/WN, vitals as above Eyes: + anicteric sclerae; normal pupil size ENMT: external ear and nose normal, oropharynx normal Respiratory: normal respiratory effort, lungs clear to auscultation Cardiovascular: Rate/Rhythm: regular rhythm and + bradycardic Heart Sounds: + murmur (apical systolic 2/6) Gastrointestinal (Abdomen): Percussion/Palpation: abdomen soft; abdomen nontender Skin: no rashes, warm and dry Neurologic: moves all extremities and awake; not confused Psychiatric: A+Ox3, euthymic affect Results & Data Results & Data ([facility]) Vital Signs (Past 12 Hours) Vital Signs Temp Pulse Resp BP BP Pulse Ox 11/27/21 15:47 188/70 H 11/27/21 14:21 36.8 C 194/62 H 11/27/21 12:45 40 L 22 94 11/27/21 12:30 41 L 16 92 11/27/21 12:15 40 L 16 91 11/27/21 12:01 36 L 184/71 H 95 11/27/21 12:00 36 L 93 11/27/21 11:45 40 L 13 95 11/27/21 11:31 35 L 186/69 H 92 11/27/21 11:30 35 L 94 11/27/21 11:20 36.6 C 11/27/21 11:15 35 L 95 11/27/21 11:01 35 L 188/66 H 94 11/27/21 11:00 35 L 95 11/27/21 10:45 35 L 19 94 11/27/21 10:31 35 L 13 180/65 H 11/27/21 10:30 35 L 15 94 11/27/21 10:15 35 L 92 11/27/21 10:01 37 L 16 183/67 H 93 11/27/21 10:00 35 L 93 11/27/21 09:45 35 L 93 11/27/21 09:30 36 L 14 180/59 H 94 11/27/21 09:15 35 L 13 95 11/27/21 09:01 35 L 14 185/58 H 91 11/27/21 09:00 35 L 95 11/27/21 08:45 35 L 15 93 11/27/21 08:31 34 L 12 184/60 H 93 11/27/21 08:30 33 L 13 96 11/27/21 08:15 33 L 94 11/27/21 08:01 33 L 193/70 H 92 11/27/21 08:00 33 L 93 11/27/21 07:45 33 L 15 93 11/27/21 07:31 33 L 13 189/70 H 93 11/27/21 07:30 41 L 14 96 11/27/21 07:28 36.4 C L 11/27/21 07:23 33 L 15 175/74 H 11/27/21 07:15 32 L 12 96 11/27/21 07:00 32 L 94 11/27/21 06:45 36 L 13 96 11/27/21 06:34 37 L 13 174/65 H 91 11/27/21 06:30 32 L 9 L 94 11/27/21 06:15 33 L 17 95 11/27/21 06:00 40 L 18 176/70 H 95 0306/22 05:45 34 L 16 93 11/27/21 05:30 37 L 24 96 11/27/21 05:15 39 L 13 95 11/27/21 05:01 40 L 14 189/72 H 94 11/27/21 05:00 31 L 16 95 11/27/21 04:45 32 L 13 94 PG Care Time/CCT Total # of Minutes Spent Total Time Spent with Patient: Total time spent is greater than 50% in coordination of care (as documented) at patient's floor/unit and/or counseling patient: Coding Level of Care Code 47566 Subseq Hosp Care Lvl 2 Diagnoses Third degree heart block I44.2 Bradycardia R00.1 Acute kidney injury superimposed on CKD N17.9; N18.9 Diabetes mellitus, type II, insulin dependent E11.9; Z79.4 Aortic stenosis I35.0 Hyperlipidemia E78.5 Obstructive sleep apnea G47.33 B-cell lymphoma C85.10
[2021-11-27 18:00] LABS: Appearance Urine Clear (Clear); Bacteria Urine Automated Negative (Negative); Bilirubin Urine Negative (Negative); Blood Urine Negative (Negative); Color Urine Yellow; Glucose Urine UA Negative (Negative); Ketones Urine Negative (Negative); Leukocyte Esterase Urine Negative (Negative); Nitrite Urine Negative (Negative); Protein Urine 2+ (Negative); RBC Urine Automated 0-4 /hpf (0-4); Specific Gravity Urine 1.014 (1.000-1.030); Urobilinogen Urine Negative (Negative)
[2021-11-27] MEDS ORDERED: INSULIN GLARGINE SOLOSTAR 100 UNITS/ML 3 ML PEN SC ONE (21:00)
[2021-11-27] MEDS: ROSUVASTATIN CALCIUM 20 MG TAB PO SCH (21:04)
[2021-11-27] MEDS: ASPIRIN 81 MG ECTAB PO SCH (21:05)
[2021-11-28] MEDS: INSULIN ASPART PER UNIT SC SCH ×6 (00:10→20:09)
[2021-11-28] MEDS: LACTATED RINGER'S 1,000 ML IV SCH (05:20)
[2021-11-28 05:22] LABS: Hematocrit (blood only) 33.1 % (37-47); Hemoglobin 10.9 g/dL (12.0-16.0); Immature Granulocytes # (auto) 0.02 K/uL (0.00-0.02); Immature Granulocytes % (auto) 0.2 %; Lymphocytes # (auto) 0.91 K/uL (1.2-3.4); Lymphocytes % (auto) 6.8 %; Mean Corpuscular Hemoglobin 29.7 pg (25-34); Mean Corpuscular Hgb Conc 32.9 g/dL (32-36); Mean Corpuscular Volume 90.2 fL (80-100); Mean Platelet Volume 9.7 fL (7.4-10.4); Monocytes # (auto) 0.36 K/uL (0.11-0.59); Monocytes % (auto) 2.7 %; Neutrophils % (auto) 90.3 %; Platelet Count 319 K/uL (130-400); RDW Coefficient of Variation 17.6 % (11.5-14.5); RDW Standard Deviation 57.4 fL (36.4-46.3); Red Blood Count 3.67 M/uL (4.2-5.4); White Blood Count 13.29 K/uL (4.8-10.8)
[2021-11-28 05:44] LABS: Albumin Globulin Ratio 1.2 (0.9-2); Albumin Level 3.9 gm/dl (3.4-5.0); BUN Creatinine Ratio 28.6 (10-20); Bilirubin,Total 0.3 mg/dl (0.2-1.0); Calcium 9.4 mg/dl (8.5-10.1); Creatinine Clr Calc Pharmacy 47.5 ml/min; Est GFR (African American) 44.3 ml/min; Est GFR (Non-African American) 38.2 ml/min; Globulin 3.2 gm/dl (2.5-4.0); Magnesium 2.3 mg/dl (1.7-2.4); Phosphorus 4.3 mg/dl (2.5-4.9); Potassium 4.2 mmol/L (3.5-5.1); Total Protein 7.1 gm/dl (6.0-8.3)
[2021-11-28] MEDS ORDERED: ceFAZolin 330 MG/ML 1 GM VIAL IV SCH (06:00)
[2021-11-28] MEDS ORDERED: LIDOCAINE 1% LOCAL 20 ML VIAL ONE (07:13)
[2021-11-28] MEDS ORDERED: VANCOMYCIN HCL 1000MG/20ML VIAL ONE (07:14)
[2021-11-28] MEDS ORDERED: BACITRACIN OINT 0.9 GM PKT ONE (07:14)
[2021-11-28] MEDS ORDERED: WATER, STERILE FOR INJ 10 ML VIAL ONE (07:14)
--- NOTE | 2021-11-28 08:03 | History & Physical Bridge Note ---
Date of Service November 28, 2021 History & Physical Bridge Note I have examined the patient, reviewed the History & Physical and in the interval since the performance of the History & Physical I have noted the following changes of clinical significance: no changes noted. I reviewed the indications, procedure, risks and alternatives with the patient, answered all questions. Consent obtained. Patient understands and agrees to the procedure. I also reviewed the risks and use of sedation, patient understands and consent obtained. I also discussed this with the patient's friend separately.
--- NOTE | 2021-11-28 08:12 | Pre Anesthesia Assessment ---
Date of Service November 28, 2021 Pre Sedation Assessment Vital Signs Temp Pulse Pulse Resp BP BP Pulse Ox 11/28/21 06:00 36.9 C 29 L 16 178/62 H 94 11/28/21 05:30 36.9 C 70 16 94 11/28/21 05:00 36.9 C 57 L 18 180/62 H 95 11/28/21 04:30 36.9 C 27 L 12 97 11/28/21 04:00 37.0 C 31 L 14 170/62 H 96 11/28/21 03:30 37.0 C 28 L 12 95 11/28/21 03:00 37.1 C 29 L 15 178/70 H 95 11/28/21 02:30 37.1 C 28 L 14 94 11/28/21 02:05 36 L 20 95 11/28/21 02:00 37.0 C 33 L 14 178/62 H 95 11/28/21 01:30 37.1 C 28 L 22 96 11/28/21 01:00 37.0 C 29 L 18 182/64 H 96 11/28/21 00:30 37.1 C 29 L 18 96 11/28/21 00:28 29 L 11/28/21 00:00 37.1 C 38 L 10 L 186/64 H 97 11/27/21 23:30 37.3 C 28 L 6 L 96 11/27/21 23:00 37.3 C 29 L 19 192/62 H 96 11/27/21 22:30 37.3 C 37 L 19 188/58 H 94 11/27/21 22:15 33 L 24 92 11/27/21 22:00 34 L 13 93 11/27/21 21:30 46 L 13 93 11/27/21 21:00 41 L 15 88 L 11/27/21 20:30 33 L 21 94 11/27/21 20:29 37.3 C 40 L 17 182/45 H 95 11/27/21 20:00 37.1 C 37 L 13 188/58 H 93 11/27/21 19:30 31 L 3 L 92 11/27/21 19:00 33 L 18 93 11/27/21 18:35 172/66 H 11/27/21 18:30 39 L 15 91 11/27/21 18:00 46 L 16 94 11/27/21 17:30 15 88 L 11/27/21 17:15 38 L 16 92 11/27/21 17:00 45 L 20 88 L 11/27/21 16:45 31 L 18 94 11/27/21 16:30 44 L 27 H 95 11/27/21 16:15 39 L 20 90 11/27/21 16:00 43 L 27 H 94 11/27/21 15:47 188/70 H 11/27/21 15:45 39 L 17 94 11/27/21 15:30 41 L 16 93 11/27/21 15:15 35 L 19 93 11/27/21 15:00 44 L 13 91 11/27/21 14:45 40 L 13 95 11/27/21 14:30 29 L 16 93 11/27/21 14:21 36.8 C 194/62 H 11/27/21 14:15 41 L 18 93 11/27/21 14:00 33 L 16 96 11/27/21 13:45 43 L 20 95 11/27/21 13:30 39 L 91 11/27/21 13:15 34 L 93 11/27/21 13:00 39 L 17 91 11/27/21 12:45 40 L 22 94 11/27/21 12:30 41 L 16 92 11/27/21 12:15 40 L 16 91 11/27/21 12:01 36 L 184/71 H 95 11/27/21 12:00 36 L 93 11/27/21 11:45 40 L 13 95 11/27/21 11:31 35 L 186/69 H 92 11/27/21 11:30 35 L 94 11/27/21 11:20 36.6 C 11/27/21 11:15 35 L 95 11/27/21 11:01 35 L 188/66 H 94 11/27/21 11:00 35 L 95 11/27/21 10:45 35 L 19 94 11/27/21 10:31 35 L 13 180/65 H 11/27/21 10:30 35 L 15 94 11/27/21 10:15 35 L 92 11/27/21 10:01 37 L 16 183/67 H 93 11/27/21 10:00 35 L 93 11/27/21 09:45 35 L 93 11/27/21 09:30 36 L 14 180/59 H 94 11/27/21 09:15 35 L 13 95 11/27/21 09:01 35 L 14 185/58 H 91 11/27/21 09:00 35 L 95 11/27/21 08:45 35 L 15 93 11/27/21 08:31 34 L 12 184/60 H 93 11/27/21 08:30 33 L 13 96 11/27/21 08:15 33 L 94 Cardiovascular + regular rate and + bradycardic Respiratory normal respiratory effort, lungs clear to auscultation Pre-Sedation Airway Assessment Smoking Status: Never smoker Hx Sleep Apnea: No Short, Thick Neck: Yes Thyromental Distance: < 3.5 Finger Breadths Oral Cavity: + WNL Mallampati Class: III ASA: ASA3 NPO Status Date of Last Intake of Fluids: 11/27/21 Time of Last Intake of Fluids: 23:00 Procedure Planning Contraindications for Sedation: none Current Medications Reviewed: No Notes The planned sedation has been discussed with the patient. Informed Consent was obtained. I have identified the patient, determined the appropriateness of sedation and have assessed the patient immediately prior to the procedure. All medicine(s) and interventions are by my order.
[2021-11-28] MEDS ORDERED: ceFAZolin 330 MG/ML 1 GM VIAL ONE (08:23)
[2021-11-28] MEDS ORDERED: fentaNYL citrate 100 MCG/2 ML VIAL ONE ×2 (08:25→09:02)
[2021-11-28] MEDS ORDERED: MIDAZOLAM HCL 1 MG/ML 2ML VIAL ONE (09:02)
[2021-11-28] MEDS: MIDAZOLAM HCL 5 MG/ML 1 ML VIAL ONE ×2 (09:44→10:33)
[2021-11-28] MEDS ORDERED: ACETAMINOPHEN 325 MG TAB PO PRN (10:06)
--- NOTE | 2021-11-28 10:06 | Electrophysiology Report ---
Date of Service November 28, 2021 Electrophysiology Procedure Electrophysiology Procedure Report Preoperative diagnosis: Intermittent complete heart block Postoperative diagnosis: Same Procedure: Left subclavian venogram dual-chamber pacemaker implantation Surgeon: Lane Polo MD Estimated blood loss: 20 cc Complications: None Disposition: Multimedia Author recovery Procedure details: After obtaining informed consent for the procedure, the patient was brought to the laboratory and prepped and draped in the standard sterile manner. Dye was injected the left arm IV site to opacify the left subclavian vein. The subclavian vein was identified and found to be free of obstruction. The left prepectoral region was anesthetized with 1% lidocaine local anesthetic and left axillary venipuncture was performed by percutaneous technique and a guidewire placed through the left subclavian vein into the superior vena cava. The area was further infiltrated with 1% lidocaine local anesthetic and a 5 cm incision was made parallel to the left clavicle and 2 cm below it and carried down to the anterior pectoralis fascia. A pacemaker pocket was formed by blunt dissection anterior to the pectoralis fascia and a vancomycin-soaked sponge was placed in the pocket. An 8 [place] Medtronic lead introducer was placed over the guidewire into the left subclavian vein, the dilator and guidewire were removed and a bipolar active fixation steroid tipped atrial lead was advanced through the introducer into the superior vena cava. This lead was temporarily placed in the right ventricle for backup pacing. A guidewire was placed through the introducer and the introducer was stripped from the lead and guidewire. A 7 [place] Medtronic lead introducer was placed over the retained guidewire into the left subclavian vein, the dilator and guidewire were removed and a C315 sheath was advanced into the right ventricle over a guidewire. The guidewire and the dilator were removed and a bipolar active fixation Select Secure steroid tipped ventricular lead was advanced through the introducer into right ventricle. The ventricular lead was advanced through the sheath into a mid to distal septal location. The screw was extended fixing the lead in position. Pacing and sensing thresholds were evaluated in bipolar configuration and are recorded on the implant data sheet. Diaphragmatic pacing was evaluated full output as noted on the implant data sheet. The sheath system was stripped from the ventricular lead and the 7 [place] sheath was also stripped from the lead. Using a curved stylette the atrial lead was positioned in the region of the atrial appendage and the screw extended fixing the lead in position. Multiple positions were tested. Pacing and sensing thresholds were evaluated in bipolar configuration and are recorded on the implant data sheet. Diaphragmatic pacing was evaluated full output and is noted on the implant data sheet. Once the leads were in position they were attached to the anterior pectoralis fascia using 2 sutures of 2-0 silk around each lead collar. The vancomycin soaked sponge was removed from the pocket, hemostasis was obtained, the pacemaker was attached to the leads and placed in the pocket with the leads coiled beneath it. The incision was closed with a running double subcutaneous closure of 3-0 Vicryl absorbable suture, followed by running subcuticular skin closure of 4-0 Vicryl absorbable suture. Bacitracin ointment was placed on the incision and a dressing applied. [facility] Electrophysiology codes Indication for Procedure (1) Third degree heart block: Pacing Procedure 1: Pacin Insert/Replace Pacer A & V Miscellaneous Procedures Procedure 1: EP Miscellaneous: 62575 Contrast injection for venography Procedure 2: EP Miscellaneous: 51725-71 Vengraphy, extremity PG Moderate Sedation Codes Moderate Sedation Codes Procedure 1: Sedation/Anesthesia: 34158 Mod Sedation by the same physician;Init15 Min Child Age 5 & Up Procedure 2: Sedation/Anesthesia: 01801 Mod Sedation by the same physician; Ea [id number] Minutes
[2021-11-28] MEDS: ACETAMINOPHEN W/CODEINE #3 1 TAB PO PRN ×2 (10:34→16:51)
[2021-11-28] MEDS: LOSARTAN POTASSIUM 50 MG TAB PO SCH (10:41)
[2021-11-28] MEDS: SPIRONOLACTONE/HCTZ 25-25 PO SCH (10:41)
--- NOTE | 2021-11-28 11:07 | Hospitalist Progress Note ---
Date of Service November 28, 2021 Assessment & Plan (1) Third degree heart block: Plan: Third-degree heart block/symptomatic bradycardia in the 20s admitted to ICU had 20 seconds CHB with syncope on A< of 11/28 and taken urgently for PPM Also had some runs of NSVT and torsades through the weekend prior to pacer placement With hypertension and pleural effusion associated Appreciate Cardiology management Lyme neg Does have sarcoidosis and Cardiology recommends cardiac MRI as outpat -restart home diltiazem, HCTZ/spironolactone, losartan now that pacer in place -activity restrictions as per Cardio -remain in ICU for now -pain control with T#3 (2) Bradycardia: Plan: See above (3) Acute kidney injury superimposed on CKD: Plan: Creatinine 1.46, with baseline 1.06-1.27. Community Facilitator remains at 1.4 -ok to restart HCTZ/spironolactone and losartan watch BMP, UOP,BPs now with better perfusion due to pacer placement (4) Diabetes mellitus, type II, insulin dependent: Plan: Noted to be hypoglycemic with glucose 62 upon admission Hold dulaglutide, and Metformin Consult pharmacy for glycemic control with ongoing basal bolus insulin A1C well controlled outpt (5) Aortic stenosis: Plan: mild on ECHO follow as outpt (6) Hyperlipidemia: Plan: Continue rosuvastatin (7) Obstructive sleep apnea: Plan: CPAP at bedtime (8) B-cell lymphoma: Plan: s/p chemotherapy 1 year ago Follows with Kallie Blevins at [facility] has right sided port in place but wants it removed-it does put her at increased risk for infection and should be considered especially now that pacer in place defer to outpt Oncology as they recommended it remain in place for 5 years in case of recurrence of lymphoma Plan: VTE Prophylaxis - SCDs Lines-pull Phillip, Right port a cath Disposition -remain in ICU but can downgrade tomorrow to PCU if remains stable Admission and Anticipated Discharge Date Admission Date: November 25, 2021 Subjective Pt had 20 seconds of complete heart block this AM with no ventricular escape and had syncope and seizure like activiytt as per RN. She was laid flat in case of need for CPR and then she woke up and was speaking again. She was then taken urgently for her PPM. I saw her when she returned from PPM and said she's already feeling much better with less SOB. No CP but says her port does cause her pain and she wants it removed. It was supposed to be removed as an outpt but got cancelled due to COVID No BM since admission. Requests Phillip be out and she wants to get OOB and move Review of Systems Review of Systems: All systems reviewed & are unremarkable except as noted in HPI & below Physical Exam Constitutional: WD/WN, vitals as above Eyes: + anicteric sclerae ENMT: external ear and nose normal, oropharynx normal Neck: trachea midline, no thyromegaly Respiratory: normal respiratory effort, lungs clear to auscultation Cardiovascular: RRR, no murmur, no edema Chest (Breasts): Chest: + pacemaker (Left anterior chest with dressing c/d/i) and + vascular access device or port (Rt anterior chest wall,no erythema) Gastrointestinal (Abdomen): normal bowel sounds, soft, nontender, no hepatosplenomegaly Musculoskeletal: Extremities: extremities normal to inspection; no cyanosis and no clubbing Skin: no rashes, warm and dry Neurologic: moves all extremities and awake; no focal motor deficits Psychiatric: A+Ox3, euthymic affect Lymphatic: no lymphedema Results & Data Results & Data ([facility]) Vital Signs (Past 12 Hours) Vital Signs Temp Pulse Pulse Resp BP BP Pulse Ox 11/28/21 10:00 81 18 179/96 H 95 11/28/21 07:30 36.6 C 68 19 95 11/28/21 07:19 36.3 C L 86 26 H 206/103 H 96 11/28/21 07:15 36.4 C L 85 14 97 11/28/21 07:00 36.5 C 81 21 96 11/28/21 06:45 36.6 C 72 17 96 11/28/21 06:30 36.8 C 72 19 96 11/28/21 06:15 36.9 C 50 L 20 92 11/28/21 06:00 36.9 C 29 L 16 178/62 H 94 11/28/21 05:30 36.9 C 70 16 94 11/28/21 05:00 36.9 C 57 L 18 180/62 H 95 11/28/21 04:30 36.9 C 27 L 12 97 11/28/21 04:00 37.0 C 31 L 14 170/62 H 96 11/28/21 03:30 37.0 C 28 L 12 95 11/28/21 03:00 37.1 C 29 L 15 178/70 H 95 11/28/21 02:30 37.1 C 28 L 14 94 11/28/21 02:05 36 L 20 95 11/28/21 02:00 37.0 C 33 L 14 178/62 H 95 11/28/21 01:30 37.1 C 28 L 22 96 11/28/21 01:00 37.0 C 29 L 18 182/64 H 96 11/28/21 00:30 37.1 C 29 L 18 96 11/28/21 00:28 29 L 11/28/21 00:00 37.1 C 38 L 10 L 186/64 H 97 11/27/21 23:30 37.3 C 28 L 6 L 96 Laboratory Results 11/28/21 11/28/21 11/28/21 Range/Units 07:40 05:07 05:07 WBC 13.29 H (4.8-10.8) K/uL RBC 3.67 L (4.2-5.4) M/uL Hgb 10.9 L (12.0-16.0) g/dL Hct 33.1 L (37-47) % MCV 90.2 (80-100) fL MCH 29.7 (25-34) pg MCHC 32.9 (32-36) g/dL RDW Std Deviation 57.4 H (36.4-46.3) fL RDW Coeff of Shruti 17.6 H (11.5-14.5) % Plt Count 319 (130-400) K/uL MPV 9.7 (7.4-10.4) fL Immature Gran % (Auto) 0.2 % Neut % (Auto) 90.3 % Lymph % (Auto) 6.8 % [place] % (Auto) 2.7 % Eos % (Auto) 0.0 % Baso % (Auto) 0.0 % Neut # (Auto) 12.00 H (1.4-6.5) K/uL Lymph # (Auto) 0.91 L (1.2-3.4) K/uL [place] # (Auto) 0.36 (0.11-0.59) K/uL Eos # (Auto) 0.00 (0-0.5) K/uL Baso # (Auto) 0.00 (0-0.2) K/uL Immature Gran # (Auto) 0.02 (0.00-0.02) K/uL Sodium 136 (136-145) mmol/L Potassium 4.2 (3.5-5.1) mmol/L Chloride 103 (98-107) mmol/L Carbon Dioxide 24 (21-32) mmol/L Anion Gap 9 (3-11) BUN 40 H (6-23) mg/dl Creatinine 1.40 H (0.6-1.2) mg/dl Est Cr Clr Drug Dosing 47.5 ml/min Est GFR ( Amer) 44.3 ml/min Est GFR (Non-Af Amer) 38.2 ml/min BUN/Creatinine Ratio 28.6 H (10-20) Glucose 141 H (70-99(Fasting)) mg/dl POC Glucose 163 H (70-99) mg/dl Calcium 9.4 (8.5-10.1) mg/dl Phosphorus 4.3 (2.5-4.9) mg/dl Magnesium 2.3 (1.7-2.4) mg/dl Total Bilirubin 0.3 (0.2-1.0) mg/dl AST 13 (13-39) U/L ALT 12 (7-52) U/L Alkaline Phosphatase 43 (34-104) U/L Total Protein 7.1 (6.0-8.3) gm/dl Albumin 3.9 (3.4-5.0) gm/dl Globulin 3.2 (2.5-4.0) gm/dl Albumin/Globulin Ratio 1.2 (0.9-2) Urine Color Urine Appearance (Clear) Urine pH (4.5-7.5) Ur Specific [place] (1.000-1.030) Urine Protein (Negative) Urine Glucose (UA) (Negative) Urine Ketones (Negative) Urine Blood (Negative) Urine Nitrite (Negative) Urine Bilirubin (Negative) Urine Urobilinogen (Negative) Ur Leukocyte Esterase (Negative) Urine WBC (Auto) (0-5) /hpf Urine RBC (Auto) (0-4) /hpf U Hyaline Cast (Auto) (0-5) /lpf U Epithel Cells (Auto) (0-5) /lpf Urine Bacteria (Auto) (Negative) Hepatitis C Ab Screen (Neg) 11/28/21 11/27/21 11/27/21 Range/Units 04:22 23:59 20:44 WBC (4.8-10.8) K/uL RBC (4.2-5.4) M/uL Hgb (12.0-16.0) g/dL Hct (37-47) % MCV (80-100) fL MCH (25-34) pg MCHC (32-36) g/dL RDW Std Deviation (36.4-46.3) fL RDW Coeff of Shruti (11.5-14.5) % Plt Count (130-400) K/uL MPV (7.4-10.4) fL Immature Gran % (Auto) % Neut % (Auto) % Lymph % (Auto) % [place] % (Auto) % Eos % (Auto) % Baso % (Auto) % Neut # (Auto) (1.4-6.5) K/uL Lymph # (Auto) (1.2-3.4) K/uL [place] # (Auto) (0.11-0.59) K/uL Eos # (Auto) (0-0.5) K/uL Baso # (Auto) (0-0.2) K/uL Immature Gran # (Auto) (0.00-0.02) K/uL Sodium (136-145) mmol/L Potassium (3.5-5.1) mmol/L Chloride (98-107) mmol/L Carbon Dioxide (21-32) mmol/L Anion Gap (3-11) BUN (6-23) mg/dl Creatinine (0.6-1.2) mg/dl Est Cr Clr Drug Dosing ml/min Est GFR ( Amer) ml/min Est GFR (Non-Af Amer) ml/min BUN/Creatinine Ratio (10-20) Glucose (70-99(Fasting)) mg/dl POC Glucose 155 H 223 H 332 H* (70-99) mg/dl Calcium (8.5-10.1) mg/dl Phosphorus (2.5-4.9) mg/dl Magnesium (1.7-2.4) mg/dl Total Bilirubin (0.2-1.0) mg/dl AST (13-39) U/L ALT (7-52) U/L Alkaline Phosphatase (34-104) U/L Total Protein (6.0-8.3) gm/dl Albumin (3.4-5.0) gm/dl Globulin (2.5-4.0) gm/dl Albumin/Globulin Ratio (0.9-2) Urine Color Urine Appearance (Clear) Urine pH (4.5-7.5) Ur Specific [place] (1.000-1.030) Urine Protein (Negative) Urine Glucose (UA) (Negative) Urine Ketones (Negative) Urine Blood (Negative) Urine Nitrite (Negative) Urine Bilirubin (Negative) Urine Urobilinogen (Negative) Ur Leukocyte Esterase (Negative) Urine WBC (Auto) (0-5) /hpf Urine RBC (Auto) (0-4) /hpf U Hyaline Cast (Auto) (0-5) /lpf U Epithel Cells (Auto) (0-5) /lpf Urine Bacteria (Auto) (Negative) Hepatitis C Ab Screen (Neg) 11/27/21 11/27/21 11/27/21 Range/Units 17:05 16:40 11:22 WBC (4.8-10.8) K/uL RBC (4.2-5.4) M/uL Hgb (12.0-16.0) g/dL Hct (37-47) % MCV (80-100) fL MCH (25-34) pg MCHC (32-36) g/dL RDW Std Deviation (36.4-46.3) fL RDW Coeff of Shruti (11.5-14.5) % Plt Count (130-400) K/uL MPV (7.4-10.4) fL Immature Gran % (Auto) % Neut % (Auto) % Lymph % (Auto) % [place] % (Auto) % Eos % (Auto) % Baso % (Auto) % Neut # (Auto) (1.4-6.5) K/uL Lymph # (Auto) (1.2-3.4) K/uL [place] # (Auto) (0.11-0.59) K/uL Eos # (Auto) (0-0.5) K/uL Baso # (Auto) (0-0.2) K/uL Immature Gran # (Auto) (0.00-0.02) K/uL Sodium (136-145) mmol/L Potassium (3.5-5.1) mmol/L Chloride (98-107) mmol/L Carbon Dioxide (21-32) mmol/L Anion Gap (3-11) BUN (6-23) mg/dl Creatinine (0.6-1.2) mg/dl Est Cr Clr Drug Dosing ml/min Est GFR ( Amer) ml/min Est GFR (Non-Af Amer) ml/min BUN/Creatinine Ratio (10-20) Glucose (70-99(Fasting)) mg/dl POC Glucose 216 H 242 H (70-99) mg/dl Calcium (8.5-10.1) mg/dl Phosphorus (2.5-4.9) mg/dl Magnesium (1.7-2.4) mg/dl Total Bilirubin (0.2-1.0) mg/dl AST (13-39) U/L ALT (7-52) U/L Alkaline Phosphatase (34-104) U/L Total Protein (6.0-8.3) gm/dl Albumin (3.4-5.0) gm/dl Globulin (2.5-4.0) gm/dl Albumin/Globulin Ratio (0.9-2) Urine Color Yellow Urine Appearance Clear (Clear) Urine pH 5.0 (4.5-7.5) Ur Specific [place] 1.014 (1.000-1.030) Urine Protein 2+ H (Negative) Urine Glucose (UA) Negative (Negative) Urine Ketones Negative (Negative) Urine Blood Negative (Negative) Urine Nitrite Negative (Negative) Urine Bilirubin Negative (Negative) Urine Urobilinogen Negative (Negative) Ur Leukocyte Esterase Negative (Negative) Urine WBC (Auto) 1-5 (0-5) /hpf Urine RBC (Auto) 0-4 (0-4) /hpf U Hyaline Cast (Auto) 1-5 (0-5) /lpf U Epithel Cells (Auto) 5-10 H (0-5) /lpf Urine Bacteria (Auto) Negative (Negative) Hepatitis C Ab Screen (Neg) 11/26/21 Range/Units 04:27 WBC (4.8-10.8) K/uL RBC (4.2-5.4) M/uL Hgb (12.0-16.0) g/dL Hct (37-47) % MCV (80-100) fL MCH (25-34) pg MCHC (32-36) g/dL RDW Std Deviation (36.4-46.3) fL RDW Coeff of Shruti (11.5-14.5) % Plt Count (130-400) K/uL MPV (7.4-10.4) fL Immature Gran % (Auto) % Neut % (Auto) % Lymph % (Auto) % [place] % (Auto) % Eos % (Auto) % Baso % (Auto) % Neut # (Auto) (1.4-6.5) K/uL Lymph # (Auto) (1.2-3.4) K/uL [place] # (Auto) (0.11-0.59) K/uL Eos # (Auto) (0-0.5) K/uL Baso # (Auto) (0-0.2) K/uL Immature Gran # (Auto) (0.00-0.02) K/uL Sodium (136-145) mmol/L Potassium (3.5-5.1) mmol/L Chloride (98-107) mmol/L Carbon Dioxide (21-32) mmol/L Anion Gap (3-11) BUN (6-23) mg/dl Creatinine (0.6-1.2) mg/dl Est Cr Clr Drug Dosing ml/min Est GFR ( Amer) ml/min Est GFR (Non-Af Amer) ml/min BUN/Creatinine Ratio (10-20) Glucose (70-99(Fasting)) mg/dl POC Glucose (70-99) mg/dl Calcium (8.5-10.1) mg/dl Phosphorus (2.5-4.9) mg/dl Magnesium (1.7-2.4) mg/dl Total Bilirubin (0.2-1.0) mg/dl AST (13-39) U/L ALT (7-52) U/L Alkaline Phosphatase (34-104) U/L Total Protein (6.0-8.3) gm/dl Albumin (3.4-5.0) gm/dl Globulin (2.5-4.0) gm/dl Albumin/Globulin Ratio (0.9-2) Urine Color Urine Appearance (Clear) Urine pH (4.5-7.5) Ur Specific [place] (1.000-1.030) Urine Protein (Negative) Urine Glucose (UA) (Negative) Urine Ketones (Negative) Urine Blood (Negative) Urine Nitrite (Negative) Urine Bilirubin (Negative) Urine Urobilinogen (Negative) Ur Leukocyte Esterase (Negative) Urine WBC (Auto) (0-5) /hpf Urine RBC (Auto) (0-4) /hpf U Hyaline Cast (Auto) (0-5) /lpf U Epithel Cells (Auto) (0-5) /lpf Urine Bacteria (Auto) (Negative) Hepatitis C Ab Screen Neg (Neg) PG Care Time/CCT Total # of Minutes Spent Total Time Spent with Patient: Total time spent is greater than 50% in coordination of care (as documented) at patient's floor/unit and/or counseling patient: Coding Level of Care Code 00265 Subseq Hosp Care Lvl 3 Diagnoses Third degree heart block I44.2 Bradycardia R00.1 Acute kidney injury superimposed on CKD N17.9; N18.9 Diabetes mellitus, type II, insulin dependent E11.9; Z79.4 Aortic stenosis I35.0 Hyperlipidemia E78.5 Obstructive sleep apnea G47.33 B-cell lymphoma C85.10
--- NOTE | 2021-11-28 11:29 | Pharmacy Report ---
Pharmacy Glycemic Short Note 2 - Date of Service November 28, 2021 - Glycemic Short BSG Results (Last 24 hours): 11/27/21 11/27/21 11/27/21 11:22 17:05 20:44 Glucose POC Glucose 242 H 216 H 332 H* 11/27/21 11/28/21 11/28/21 23:59 04:22 05:07 Glucose 141 H POC Glucose 223 H 155 H 11/28/21 07:40 Glucose POC Glucose 163 H OUTPATIENT ANTIDIABETIC REGIMEN: * Lantus 80 units HS * Trulicity every Sunday * metformin * HbA1C = 6.3% ASSESSMENT: 11/28: * Type 2 diabetic admitted for CHB and HARJINDER * Patient was initially treated with IV steroid therapy for possible cardiac sarcoidosis, however this therapy will be d/c'd following pacer placement * Will give ~75% home basal insulin dose today as steroid being dc'd and BSGs down to acceptable range. Additional dose will be given @noon today as pt appears basal deficient. * Novolog doses will be based upon severe stress and weight initially PLAN FOR INPATIENT GLYCEMIC CONTROL: * Hold outpatient oral diabetes medications * Basal insulin * Lantus 20 units @noon + 40 units SQ HS today * Bolus insulin * NovoLog per scale Q 4 hrs * Goal Range: Low 110 mg/dL - High 140 mg/dL * Correction Factor: 15 mg/dL/unit * Nutritional / Prandial insulin per carb ratio of 1 unit per 4 grams CHO consumed
[2021-11-28] MEDS ORDERED: INSULIN GLARGINE SOLOSTAR 100 UNITS/ML 3 ML PEN SC ONE ×2 (11:30→21:00)
--- NOTE | 2021-11-28 11:57 | Critical Care Progress Note ---
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 She is now status post pacemaker and doing well clinically. Recommendations: 1. Third-degree heart block: It would be very unusual for patients with stage I sarcoid to develop cardiac sarcoid after being clinically quiescent and stable. For this reason I think we can discontinue the steroids. I agree with Dr. Lopez that if additional evaluation were warranted, gated cardiac MRI would be the diagnostic study of choice which is not available at our institution would require evaluation at a tertiary facility. Myocardial biopsy may also be considered but again is not available at this institution. If the patient were to have cardiac sarcoid, would recommend that she be evaluated at a sarcoid specialty clinic as this may require more aggressive immune suppression. Again my suspicion for cardiac sarcoid is low at this point time. 2. Pleural effusion: Suspect related to underlying conduction abnormalities. She is asymptomatic at this point time. No indication for thoracentesis. Diuretics as tolerated. 3. Will remove Phillip catheter. Out of bed to chair as tolerated. Arm restrictions per electrophysiology. 4. Mild anemia: No indication for acute blood loss. Unclear if this is related to her prior history of lymphoma. Would continue to follow at this point time. 5. Chronic kidney disease: Serum creatinine 1.4. Continue to follow clinically at this point time. Electrolytes and acid-base status are stable. 6. Hypertension: Management per cardiology. Now that she has no risk for bradycardia, pushing AV kannan blocking medications in an effort to improve her blood pressure control might be appropriate. Defer to cardiology. If the patient does well over the next several hours, she can likely be transferred out of the intensive care unit to a telemetry bed. She was scheduled to see me back in clinic later this week. I think given the procedures that she is undergone, delaying that follow-up for 8 to 12 weeks would be reasonable. She can do her PFTs at that point time. We will follow along with this patient over the next 24 hours to ensure that she is responding appropriately. Ultimate disposition per EP and the primary admitting service. Admission and Anticipated Discharge Date Admission Date: November 25, 2021 Subjective Patient seen and examined. EMR reviewed. Discussed on multidisciplinary rounds and with off going traveling passenger agent. The patient was evaluated after she received her pacemaker this morning. She feels that she is doing much better. Her shortness of breath is resolved. She is no longer having syncopal events. She denies chest pain or palpitations. No nausea or vomiting. No lower extremity edema. She is anxious to have her Phillip catheter removed and ambulate. Review of Systems Review of Systems: All systems reviewed & are unremarkable except as noted in Subjective Physical Exam Constitutional: WD/WN, vitals as above Neck: trachea midline, no thyromegaly Respiratory: normal respiratory effort, lungs clear to auscultation Cardiovascular: RRR, no murmur, no edema Gastrointestinal (Abdomen): normal bowel sounds, soft, nontender, no hepatosplenomegaly Musculoskeletal: Extremities: extremities normal to inspection Skin: no rashes, warm and dry Neurologic: Nonfocal exam Lymphatic: no cervical lymphadenopathy Results & Data Results & Data ([facility]) Vital Signs (Past 12 Hours) Vital Signs Temp Pulse Pulse Resp BP BP Pulse Ox 11/28/21 10:00 81 18 179/96 H 95 11/28/21 07:30 36.6 C 68 19 95 11/28/21 07:19 36.3 C L 86 26 H 206/103 H 96 11/28/21 07:15 36.4 C L 85 14 97 11/28/21 07:00 36.5 C 81 21 96 11/28/21 06:45 36.6 C 72 17 96 11/28/21 06:30 36.8 C 72 19 96 11/28/21 06:15 36.9 C 50 L 20 92 11/28/21 06:00 36.9 C 29 L 16 178/62 H 94 11/28/21 05:30 36.9 C 70 16 94 11/28/21 05:00 36.9 C 57 L 18 180/62 H 95 11/28/21 04:30 36.9 C 27 L 12 97 11/28/21 04:00 37.0 C 31 L 14 170/62 H 96 11/28/21 03:30 37.0 C 28 L 12 95 11/28/21 03:00 37.1 C 29 L 15 178/70 H 95 0307/22 02:30 37.1 C 28 L 14 94 11/28/21 02:05 36 L 20 95 11/28/21 02:00 37.0 C 33 L 14 178/62 H 95 11/28/21 01:30 37.1 C 28 L 22 96 11/28/21 01:00 37.0 C 29 L 18 182/64 H 96 11/28/21 00:30 37.1 C 29 L 18 96 11/28/21 00:28 29 L 11/28/21 00:00 37.1 C 38 L 10 L 186/64 H 97 Critical Care Results & Data Vital Signs (Past 12 Hours) Vital Signs Temp Pulse Pulse Resp BP BP Pulse Ox 11/28/21 10:00 81 18 179/96 H 95 11/28/21 07:30 36.6 C 68 19 95 11/28/21 07:19 36.3 C L 86 26 H 206/103 H 96 11/28/21 07:15 36.4 C L 85 14 97 11/28/21 07:00 36.5 C 81 21 96 11/28/21 06:45 36.6 C 72 17 96 11/28/21 06:30 36.8 C 72 19 96 11/28/21 06:15 36.9 C 50 L 20 92 11/28/21 06:00 36.9 C 29 L 16 178/62 H 94 11/28/21 05:30 36.9 C 70 16 94 11/28/21 05:00 36.9 C 57 L 18 180/62 H 95 11/28/21 04:30 36.9 C 27 L 12 97 11/28/21 04:00 37.0 C 31 L 14 170/62 H 96 11/28/21 03:30 37.0 C 28 L 12 95 11/28/21 03:00 37.1 C 29 L 15 178/70 H 95 11/28/21 02:30 37.1 C 28 L 14 94 11/28/21 02:05 36 L 20 95 11/28/21 02:00 37.0 C 33 L 14 178/62 H 95 11/28/21 01:30 37.1 C 28 L 22 96 11/28/21 01:00 37.0 C 29 L 18 182/64 H 96 11/28/21 00:30 37.1 C 29 L 18 96 11/28/21 00:28 29 L 11/28/21 00:00 37.1 C 38 L 10 L 186/64 H 97 Lab & Micro Results (Past 24 Hours) RBC 3.67 M/uL (4.2-5.4) L 11/28/21 WBC 13.29 K/uL (4.8-10.8) H 11/28/21 Hgb 10.9 g/dL (12.0-16.0) L 11/28/21 Hct 33.1 % (37-47) L 11/28/21 MCV 90.2 fL (80-100) 11/28/21 MCH 29.7 pg (25-34) 11/28/21 MCHC 32.9 g/dL (32-36) 11/28/21 RDW Standard Deviation 57.4 fL (36.4-46.3) H 11/28/21 RDW Coefficient of Variation 17.6 % (11.5-14.5) H 11/28/21 Plt Count 319 K/uL (130-400) 11/28/21 MPV 9.7 fL (7.4-10.4) 11/28/21 Neutrophils (%) (Auto) 90.3 % 11/28/21 Lymphocytes (%) (Auto) 6.8 % 11/28/21 Monocytes # (Auto) 0.36 K/uL (0.11-0.59) 11/28/21 Eosinophils # (Auto) 0.00 K/uL (0-0.5) 11/28/21 Immature Granulocyte % (Auto) 0.2 % 11/28/21 Neutrophils # (Auto) 12.00 K/uL (1.4-6.5) H 11/28/21 Lymphocytes # (Auto) 0.91 K/uL (1.2-3.4) L 11/28/21 Monocytes # (Auto) 0.36 K/uL (0.11-0.59) 11/28/21 Eosinophils # (Auto) 0.00 K/uL (0-0.5) 11/28/21 Basophils # (Auto) 0.00 K/uL (0-0.2) 11/28/21 Immature Granulocyte # (Auto) 0.02 K/uL (0.00-0.02) 11/28/21 Na 136 mmol/L (136-145) 11/28/21 K 4.2 mmol/L (3.5-5.1) 11/28/21 Cl 103 mmol/L (98-107) 11/28/21 CO2 24 mmol/L (21-32) 11/28/21 Anion Gap 9 (3-11) 11/28/21 BUN 40 mg/dl (6-23) H 11/28/21 Creatinine 1.40 mg/dl (0.6-1.2) H 11/28/21 Estimated GFR ( Amer) 44.3 ml/min 11/28/21 Estimated GFR (Non-Af Amer) 38.2 ml/min 11/28/21 BUN/Creatinine Ratio 28.6 (10-20) H 11/28/21 Glu 141 mg/dl (70-99(Fasting)) H 11/28/21 Ca 9.4 mg/dl (8.5-10.1) 11/28/21 Phosphorus Level 4.3 mg/dl (2.5-4.9) 11/28/21 Total Bilirubin 0.3 mg/dl (0.2-1.0) 11/28/21 AST 13 U/L (13-39) 11/28/21 ALT 12 U/L (7-52) 11/28/21 Alkaline Phosphatase 43 U/L (34-104) 11/28/21 TP 7.1 gm/dl (6.0-8.3) 11/28/21 Albumin 3.9 gm/dl (3.4-5.0) 11/28/21 Globulin 3.2 gm/dl (2.5-4.0) 11/28/21 Albumin/Globulin Ratio 1.2 (0.9-2) 11/28/21 Mg 2.3 mg/dl (1.7-2.4) 11/28/21 05:07 11/28/21 Calcium Level 9.4 mg/dl (8.5-10.1) 11/28/21 05:07 11/28/21 Microbiology 11/26/21 16:40 Urine Culture - Final Urine,Clean Catch More than three types of organisms present, all high counts. Repeat collection recommended. No further identifications or sensitivities to follow. 11/26/21 11:52 Aerobic Blood Culture - Preliminary Blood No growth in Aerobic bottle after 24 hours. Anaerobic Blood Culture - Preliminary No growth in Anaerobic bottle after 24 hours. 11/26/21 11:35 Aerobic Blood Culture - Preliminary Blood No growth in Aerobic bottle after 24 hours. Anaerobic Blood Culture - Preliminary No growth in Anaerobic bottle after 24 hours. I & O Totals 24 Hours 11/27/21 11/28/21 11/29/21 06:59 06:59 06:59 Intake Total 1100 / 1100 1999 Output Total 2460 / 2460 2375 / 2375 250 / 250 Balance -1360 / -1360 -375 / -375 -250 / -250 Cumulative 11/25/21 17:29 thru 11/28/21 10:23 Intake Total 3150 Output Total 6485 Balance -3335 RT Ventilator Mngmt (Last Documented) Ventilator Ordered Settings Respiratory Rate 18 11/28/21 10:00 Ventilator - PT Measurements Respiratory Rate 18 Coding Level of Care Code 53273 Subseq Hosp Care Lvl 3 Diagnoses Admitted to intensive care unit Z78.9 Nonsustained ventricular tachycardia I47.2 Third degree heart block I44.2 Pleural effusion J90
--- NOTE | 2021-11-28 15:42 | Post Anesthesia Assessment ---
Date of Service November 28, 2021 Post Sedation Assessment Vital Signs Temp Pulse Pulse Resp BP BP Pulse Ox 11/28/21 14:15 68 19 93 11/28/21 14:00 74 26 H 96 11/28/21 13:45 72 17 135/105 H 11/28/21 13:30 72 27 H 172/79 H 11/28/21 13:15 82 30 H 168/72 H 95 11/28/21 13:00 76 32 H 166/88 H 11/28/21 12:45 82 22 187/80 H 94 11/28/21 12:32 36.6 C 11/28/21 12:30 79 21 193/94 H 96 11/28/21 12:16 79 22 181/81 H 94 11/28/21 12:15 80 23 92 11/28/21 12:00 71 17 181/86 H 11/28/21 11:46 79 16 188/117 H 93 11/28/21 11:45 79 19 93 11/28/21 11:30 77 23 188/90 H 93 11/28/21 11:15 75 25 H 194/95 H 91 11/28/21 11:00 76 17 187/92 H 88 L 11/28/21 10:45 78 34 H 195/91 H 93 11/28/21 10:30 79 18 198/95 H 92 11/28/21 10:16 80 22 192/96 H 93 11/28/21 10:15 81 27 H 93 11/28/21 10:00 81 18 179/96 H 95 11/28/21 07:30 36.6 C 68 19 95 11/28/21 07:19 36.3 C L 86 26 H 206/103 H 96 11/28/21 07:15 36.4 C L 85 14 97 11/28/21 07:00 36.5 C 81 21 96 11/28/21 06:45 36.6 C 72 17 96 11/28/21 06:30 36.8 C 72 19 96 11/28/21 06:15 36.9 C 50 L 20 92 11/28/21 06:00 36.9 C 29 L 16 178/62 H 94 11/28/21 05:30 36.9 C 70 16 94 11/28/21 05:00 36.9 C 57 L 18 180/62 H 95 11/28/21 04:30 36.9 C 27 L 12 97 11/28/21 04:00 37.0 C 31 L 14 170/62 H 96 11/28/21 03:30 37.0 C 28 L 12 95 11/28/21 03:00 37.1 C 29 L 15 178/70 H 95 11/28/21 02:30 37.1 C 28 L 14 94 11/28/21 02:05 36 L 20 95 11/28/21 02:00 37.0 C 33 L 14 178/62 H 95 11/28/21 01:30 37.1 C 28 L 22 96 11/28/21 01:00 37.0 C 29 L 18 182/64 H 96 11/28/21 00:30 37.1 C 29 L 18 96 11/28/21 00:28 29 L 11/28/21 00:00 37.1 C 38 L 10 L 186/64 H 97 11/27/21 23:30 37.3 C 28 L 6 L 96 11/27/21 23:00 37.3 C 29 L 19 192/62 H 96 11/27/21 22:30 37.3 C 37 L 19 188/58 H 94 11/27/21 22:15 33 L 24 92 11/27/21 22:00 34 L 13 93 11/27/21 21:30 46 L 13 93 11/27/21 21:00 41 L 15 88 L 11/27/21 20:30 33 L 21 94 11/27/21 20:29 37.3 C 40 L 17 182/45 H 95 11/27/21 20:00 37.1 C 37 L 13 188/58 H 93 11/27/21 19:30 31 L 3 L 92 11/27/21 19:00 33 L 18 93 11/27/21 18:35 172/66 H 11/27/21 18:30 39 L 15 91 11/27/21 18:00 46 L 16 94 11/27/21 17:30 15 88 L 11/27/21 17:15 38 L 16 92 11/27/21 17:00 45 L 20 88 L 11/27/21 16:45 31 L 18 94 11/27/21 16:30 44 L 27 H 95 11/27/21 16:15 39 L 20 90 03/06/22 16:00 43 L 27 H 94 11/27/21 15:47 188/70 H 11/27/21 15:45 39 L 17 94 Recovery Score Activity: Moves 4 extremities Respiration: Deep Breath/Cough Circulation: +/-20% PreAnes Value Consciousness: Fully Awake Oxygen Saturation: > 92% On Room Air Post Anesthesia Score: 10 Discharge Sedation Level of Care: Fast Track Phase II Post Sedation Plan On clinical assessment, the patient appears to have tolerated the sedation without complications. Patient is recovering as anticipated. Patient will continue to be monitored by nursing and may be discharged when sedation discharge criteria are met per below protocol. Upon Completions of procedure up to 15 minutes continue every 5 minute vital signs and the P.A.R. score; then discharge to a Phase I or Fast Track to Phase II per the following guidelines: * Discharge Patient to appropriate Phase II area if PAR is 8 or greater or return to pre- procedure baseline. The post - procedure orders will be as directed. * If PAR score is less than 8 or not return to pre-procedure baseline then patient will follow Phase I monitoring till PAR is reached for Phase II. The Phase I may be done in procedure room or may call to secure a Phase I area. * If naloxone or flumazenil are used for reversal, hold in Phase I for continued monitoring from when last reversal dose was given for a minimum of 60 minutes or longer pending the nurse and/or physician discretion of patient condition before discharge to Phase II. Please call the Sedation Physician to re-evaluate and complete post-note for discharge to Phase II area. Do NOT discharge from procedure sedation or Phase 1 until post- sedation evaluation note is complete by procedure /sedation MD Sedation Discharge Instructions to be given to the patient at discharge to home.
[2021-11-28] MEDS: ASPIRIN 81 MG ECTAB PO SCH (20:08)
[2021-11-28] MEDS: ROSUVASTATIN CALCIUM 20 MG TAB PO SCH (20:08)
--- NOTE | 2021-11-28 22:42 | Electrocardiogram Report ---
Test Reason : Blood Pressure : / mmHG Vent. Rate : 086 BPM Atrial Rate : 086 BPM P-R Int : 230 ms QRS Dur : 160 ms QT Int : 450 ms P-R-T Axes : 059 096 -05 degrees QTc Int : 538 ms Sinus rhythm with 1st degree A-V block Possible Left atrial enlargement Indeterminate axis Right bundle branch block Septal infarct , age undetermined Inferior infarct , age undetermined Abnormal ECG When compared with ECG of 25-NOV-2021 21:24, Sinus rhythm with 1st degree A-V block has replaced complete heart block Vent. rate has increased BY 50 BPM Confirmed by Dashawn Lopez ([id number]) on 11/28/2021 10:42:24 PM Referred By: REFERRED SELF Confirmed By:Dashawn Lopez
--- NOTE | 2021-11-28 23:12 | Electrocardiogram Report ---
Test Reason : Blood Pressure : / mmHG Vent. Rate : 076 BPM Atrial Rate : 076 BPM P-R Int : 262 ms QRS Dur : 166 ms QT Int : 480 ms P-R-T Axes : 007 055 -04 degrees QTc Int : 540 ms Sinus rhythm with 1st degree A-V block Right bundle branch block Inferior infarct Abnormal ECG When compared with ECG of 28-NOV-2021 07:19, No significant change was found Confirmed by Dashawn Lopez ([id number]) on 11/28/2021 11:12:00 PM Referred By: REFERRED SELF Confirmed By:Dashawn Lopez
[2021-11-29] MEDS: INSULIN ASPART PER UNIT SC SCH ×4 (00:35→10:49)
[2021-11-29] MEDS: ACETAMINOPHEN W/CODEINE #3 1 TAB PO PRN ×2 (04:01→07:43)
[2021-11-29 05:36] LABS: Eosinophils # (auto) 0.05 K/uL (0-0.5); Eosinophils % (auto) 0.5 %; Hematocrit (blood only) 34.6 % (37-47); Hemoglobin 11.2 g/dL (12.0-16.0); Immature Granulocytes # (auto) 0.02 K/uL (0.00-0.02); Immature Granulocytes % (auto) 0.2 %; Lymphocytes # (auto) 1.41 K/uL (1.2-3.4); Lymphocytes % (auto) 13.4 %; Mean Corpuscular Hemoglobin 29.3 pg (25-34); Mean Corpuscular Hgb Conc 32.4 g/dL (32-36); Mean Corpuscular Volume 90.6 fL (80-100); Mean Platelet Volume 9.7 fL (7.4-10.4); Monocytes # (auto) 0.71 K/uL (0.11-0.59); Monocytes % (auto) 6.7 %; Neutrophils # (auto) 8.35 K/uL (1.4-6.5); Neutrophils % (auto) 79.2 %; Platelet Count 305 K/uL (130-400); RDW Coefficient of Variation 17.8 % (11.5-14.5); RDW Standard Deviation 59.8 fL (36.4-46.3); Red Blood Count 3.82 M/uL (4.2-5.4); White Blood Count 10.54 K/uL (4.8-10.8)
[2021-11-29 06:02] LABS: BUN Creatinine Ratio 32.8 (10-20); Calcium 9.3 mg/dl (8.5-10.1); Creatinine Clr Calc Pharmacy 51.8 ml/min; Est GFR (African American) 49.4 ml/min; Est GFR (Non-African American) 42.6 ml/min; Magnesium 2.1 mg/dl (1.7-2.4); Potassium 3.8 mmol/L (3.5-5.1)
[2021-11-29] MEDS: LACTATED RINGER'S 1,000 ML IV SCH (07:23)
[2021-11-29] MEDS: CARBOHYDRATES FOR HYPOGLYCEMIA PO PRN ×2 (07:40→08:06)
[2021-11-29] MEDS: SPIRONOLACTONE/HCTZ 25-25 PO SCH (07:41)
[2021-11-29] MEDS: LOSARTAN POTASSIUM 50 MG TAB PO SCH (07:41)
--- NOTE | 2021-11-29 08:00 | Critical Care Progress Note ---
Date of Service November 29, 2021 Assessment & Plan (1) Admitted to intensive care unit: Plan: Reason Critically Ill: 71-year-old female presenting in complete heart block requiring close hemodynamic monitoring with potential need for intervention. NEURO - * CAM ICU: NEGATIVE CARDIAC/VASCULAR - * Complete heart block: Now status post biventricular pacemaker implantation. Patient has been on telemetry, without any acute events or concerns for almost 24 hours. Would assume that, unless the electrocardiophysiologist says otherwise, she is stable enough to go home. Patient also has a sister who was coming to stay with her in the short-term so she will not be unattended if discharged home. * Discussed potentially increasing her home losartan with assistant analyst (Dr. Ploo)patient's blood pressures were elevated prior to onset of symptoms weeks ago. However, she had not begun to take it before she came to the hospital. Plan for now is to keep losartan at 50 mg daily, then increase if needed at her PCP follow-up. RESPIRATORY - * Dyspnea on exertion: * Resolved now for 24+ hours. Suspect symptoms were secondary to complete heart block, which is now resolved (see above: cardiac/vascular). Expect pulmonary effusion to resolve now that primary process has been managed. GI/NUTRITION - * DM diet RENAL/LYTES - * HARJINDER on CKD 3: * Improving/resolving. Creatinine-1.28 today, down from 1.4 yesterday (baseline of 1.05). Continue to monitor while patient is in the hospital. - * No concerns at this time. ENDO - * DMII * BSGs per unit protocol. ISS --> gtt per unit policy. * Solu-Medrol stopped given very low index of suspicion for sarcoid. Patient will be seen outpatient by Pulmonology in 6-8 weeks for follow-up. Otherwise no additional interventions at this time. HEME - * Stable H&H ID - * No concerns of infectious contribution at this time. * Lyme titer negative LINES/IV ACCESS - * PIVs x2 * RIGHT sided a port DVT PROPHYLAXIS - * SCDs (2) Third degree heart block: (3) Acute kidney injury superimposed on CKD: (4) Pleural effusion: (5) History of B-cell lymphoma: (6) Bradycardia: Admission and Anticipated Discharge Date Admission Date: November 25, 2021 Supervising Physician Co-Signing Physician Notes Patient seen and examined. EMR reviewed. Discussed on multidisciplinary rounds and with bedside critical care nurse as well as with family practice resident. Agree with assessment plan as noted above. The patient is doing well. She is asymptomatic at this point time. She is sitt ing up in a chair. She has some pain at the incision site. At this point time the patient is stable to transfer out of the intensive care unit. Orders have been entered by the hospitalist. Again I am not suspicious that her heart block is a result of sarcoid as it was be unusual for in stage I sarcoid to progress to stage IV sarcoid. In addition she does not have any other evidence of active disease. Will defer as to whether or not cardiac MRI in the outpatient setting is appropriate to cardiology as I do not think it would exchange clerk at this point time. I have contacted the office and rescheduled her pulmonary follow-up appointment and PFTs which were to be done this week for 6 to 8 weeks. I will see her back at that time. Critical care pulmonary will sign off at this point time. Disposition per cardiology and primary service. Feel free to contact us if we can be of additional assistance. Subjective Per nursing, no acute events overnight. Patient was seated in chair about to eat breakfast this morning. She complains of incisional pain from her biventricular pacemaker implantation yesterday. Otherwise, she denies shortness of breath, dizziness, nausea or vomiting. She reports going on a walk around the ICU, which she tolerated well. She plans to walk again today. She is anxious to go home. Review of Systems Review of Systems: All systems reviewed & are unremarkable except as noted in HPI & below Physical Exam Physical Exam: General: Patient is AAO x3 and in no acute distress. HEENT: Non-erythematous oropharynx; no lymphadenopathy; normal dentition. CV: Regular rate, regular rhythm. No murmurs gallops or rubs. No pedal edema. Pulmonary: Lungs are clear to auscultation bilaterally. No crackles, rhonchi, or wheezes. Abdomen: Soft, nondistended abdomen. No bruits heard on auscultation. No tenderness to deep palpation. No guarding or rebound. MSK: Full ROM at all joints. Equal 5/5 strength bilaterally. Psych: Alert and oriented x3. Congruent mood and affect. Results & Data Results & Data ([facility] [place]) Vital Signs (Past 12 Hours) Vital Signs Temp Pulse Resp BP Pulse Ox 11/29/21 07:50 36.8 C 11/29/21 07:01 68 19 161/69 H 95 11/29/21 03:10 62 23 96 11/28/21 20:50 83 16 97 Resident Activity Tracking Resident Involvement: Resident Care Provided Care Provided: Adult Hospital Medicine
[2021-11-29] MEDS ORDERED: dilTIAZem HCL 300 MG CAPCR PO SCH (09:00)
--- NOTE | 2021-11-29 09:03 | XRay Report ---
XR chest 2V PA/lateral CLINICAL HISTORY: Pacemaker implantation yesterday TECHNIQUE: AP and lateral radiographs of the chest was obtained. Comparison: None available at the time of this dictation. FINDINGS: Status post pacemaker placement. Right port placement. Cardiomegaly is noted. The lungs are clear. Tr kym bilateral pleural effusions are seen. IMPRESSION: Cardiomegaly. Status post pacemaker without pneumothorax noted. Trace bilateral pleural effusions. ACT 112: Negative or not required by law. Electronically signed by: Rahul Ribeiro M.D. 11/29/2021 9:01 AM
--- NOTE | 2021-11-29 09:08 | Billing Data ---
Date of Service November 29, 2021 Coding Level of Care Code 86143 Subseq Hosp Care Lvl 2
--- NOTE | 2021-11-29 09:11 | Cardiology Progress Note ---
Date of Service November 29, 2021 Assessment & Plan (1) Status post placement of cardiac pacemaker: (2) Essential hypertension: (3) Third degree heart block: Plan: 1. Postop day #1: She is doing well postop, the site looks good, leads are in good position and the device is working well. From my standpoint she is stable today for discharge. I do have her scheduled for an office visit in 2 days and I placed that in her discharge. I also included discharge instructions in her discharge and discussed them with her. 2. Hypertension: Her blood pressure medications were just increased prehospitalization however she did not start them, although her pressure is st ill high I would probably send her home on her admission medications and follow that as an outpatient. 3. AV block: She has intermittent AV block which by its character and based on her conduction abnormalities baseline is probably in for his therefore this is not likely to be exacerbated by calcium or beta-blockade. Either 1 could be used in the future as desired for hypertension or other issues. Admission and Anticipated Discharge Date Admission Date: November 25, 2021 Subjective She feels well this morning, no lightheadedness or dizziness, no significant incisional discomfort. No chest discomfort or shortness of breath. Physical Exam Physical Exam: The incision is clean and dry with minimal blood on the dressing. Dressing changed. Cardiac rhythm is regular with no rub Lungs are clear Results & Data ([facility]) Vital Signs (Past 12 Hours) Vital Signs Temp Pulse Resp BP Pulse Ox 11/29/21 07:50 36.8 C 11/29/21 07:01 68 19 161/69 H 95 11/29/21 03:10 62 23 96 Diagnostic Findings Postop ECG: At the time the ECG was done she was in 1-1 AV conduction Telemetry: Normal pacemaker function Pacemaker evaluation: Excellent pacing and sensing characteristics, pacing a majority of the time appropriately Chest x-ray: Good lead position, no pneumothorax PG Care Time/CCT Total # of Minutes Spent Total Time Spent with Patient: Total time spent is greater than 50% in coordination of care (as documented) at patient's floor/unit and/or counseling patient: Coding Level of Care Code 46358 Post Operative Follow-Up Diagnoses Status post placement of cardiac pacemaker Z95.0 Essential hypertension I10 Third degree heart block I44.2 CPT Codes Dual Lead Pacemaker System - [id number] ([id number])
--- NOTE | 2021-11-29 10:03 | Discharge Summary ---
Date of Service November 29, 2021 Admission HPI Per Admitting Provider The patient is a 71-year-old female with a past medical history including B-cell lymphoma, CKD stage III, sarcoidosis, diabetes mellitus type 2, aortic stenosis, essential hypertension, mitral regurgitation, MAX, recurrent UTI, situational anxiety, venous insufficiency, hyperlipidemia, and long-term insulin use. Patient notes shortness of breath and dyspnea on exertion intermittently over the past 3 weeks, was concerned that she had COVID-19, and has been testing himself periodically with with negatives testing. When seen by her outpatient physician, plans were to decrease the dosing of Cardizem CD, and decrease the dosing of her long-acting insulin due to intentionally being able to lower her blood sugars with A1c decreasing from 7-6. When outpatient imaging showed a moderate sized pleural effusion and low heart rate, she was sent to the ED for assessment. In the ED, she was found to be in complete heart block with heart rate in the 30s, and was referred for assessment for admission. Principal Diagnosis Complete heart block Discharge Exam Constitutional WD/WN, vitals as above Eyes + anicteric sclerae ENMT external ear and nose normal, oropharynx normal Neck trachea midline, no thyromegaly Respiratory normal respiratory effort, lungs clear to auscultation Cardiovascular RRR, no murmur, no edema Chest (Breasts) Chest: + pacemaker (Left anterior chest with dressing c/d/i) and + vascular access device or port (Rt anterior chest wall,no erythema) Gastrointestinal (Abdomen) normal bowel sounds, soft, nontender, no hepatosplenomegaly Musculoskeletal Extremities: extremities normal to inspection; no cyanosis and no clubbing Skin no rashes, warm and dry Neurologic moves all extremities and awake; no focal motor deficits Psychiatric A+Ox3, euthymic affect Lymphatic no lymphedema Discharge Data Allergies Allergy/AdvReac Type Severity Reaction Status Date / Time cat dander Allergy Intermediate ITCHY Verified 11/25/21 19:09 EYES, SNEEZING, CONGESTION lisinopril AdvReac Intermediate Cough Verified 11/25/21 19:09 Sulfa (Sulfonamide AdvReac Intermediate NAUSEA Verified 11/25/21 19:09 Antibiotics) Consultations 11/25/21 20:04 ED Decision to Admit Stat 11/25/21 22:43 Consult Key Holder Routine 11/26/21 09:42 Consult Cardiology Routine Procedures Performed Operation Date: 11/28/21 08:00 Actual Procedures p Pacer with A/V Leads (Dual) - Lane Polo MD s Venogram, Unilateral - Lane Polo MD Ordered Studies 11/28/21 08:00 EP Lab Images for PACS ONCE Chest X-Ray 11/25/21 18:49 XR chest 1V portable at 8:01 PM CLINICAL HISTORY: Chest Pain. COMPARISON STUDY: 11/25/2021 at 8:50 AM TECHNIQUE: 1 view of the chest FINDINGS: Single frontal view of the chest demonstrates the heart size to again be enlarged. Compared to previous study, there is a decreased inspiratory effort with elevation of hemidiaphragms and crowding the bronchovascular markings at the lung bases and centrally. There is also been interval development of central vascular congestion. There is again suspicion of a small right pleural effusion and evidence for right basilar atelectasis. There are no confluent alveolar opacities. There is no diffuse interstitial edema. There is no acute osseous pathology. A Port-A-Cath is in place. IMPRESSION: 1. Compared to the earlier study, there is a decreased inspiratory effort with interval development of central vascular congestion characteristic of early cardiac decompensation. 2. There is again evidence for small right pleural effusion and right basilar atelectasis. ACT 112: Negative or not required by law. Electronically signed by: Favian Forde M.D. 11/25/2021 8:33 PM Chest X-Ray 11/29/21 08:04 XR chest 2V PA/lateral CLINICAL HISTORY: Pacemaker implantation yesterday TECHNIQUE: AP and lateral radiographs of the chest was obtained. Comparison: None available at the time of this dictation. FINDINGS: Status post pacemaker placement. Right port placement. Cardiomegaly is noted. The lungs are clear. Trace bilateral pleural effusions are seen. IMPRESSION: Cardiomegaly. Status post pacemaker without pneumothorax noted. Trace bilateral pleural effusions. ACT 112: Negative or not required by law. Electronically signed by: Rahul Ribeiro M.D. 11/29/2021 9:01 AM Hospital Course (1) Third degree heart block: Third-degree heart block/symptomatic bradycardia in the 20s admitted to ICU had 20 seconds CHB with syncope on AM of 11/28 and taken urgently for PPM Also had some runs of NSVT and torsades through the weekend prior to pacer placement With hypertension and pleural effusion associated Appreciate Cardiology management Lyme neg Does have sarcoidosis and Cardiology recommends cardiac MRI as outpat Doing very well s/p PPM, CXR no PTX, pacer functioning appropriately, stable for discharge as per Cardiology with pacer check in 2 days. SHe is ambulating the halls, eating and drinking. -restarted home diltiazem, HCTZ/spironolactone, losartan -activity restrictions as per Cardio -pain control with T#3, Tylenol prn -f/u with Cardiology in 1 month for pacer check and for cardiac MRI consideration for sarcoidosis (2) Bradycardia: See above (3) Acute kidney injury superimposed on CKD: Creatinine 1.46, with baseline 1.06-1.27. Spice Fumigator improved to 1.2 after pacer placed -continue HCTZ/spironolactone and losartan (4) Diabetes mellitus, type II, insulin dependent: Noted to be hypoglycemic with glucose 62 upon admission Then with hyperglycemia due to steroi duse for suspected sarcoidosis which was then stopped had glucose in 60s the AM of discharge and now off steroids ok to restart home meds on discharge f/u with PCP restart home dulaglutide, and Metformin, Basaglar and glipizde A1C well controlled outpt (5) Aortic stenosis: mild on ECHO follow as outpt (6) Hyperlipidemia: Continue rosuvastatin (7) Obstructive sleep apnea: CPAP at bedtime (8) B-cell lymphoma: s/p chemotherapy 1 year ago Follows with Kallie Blevins at [facility] has right sided port in place but wants it removed-it does put her at increased risk for infection and should be considered especially now that pacer in place defer to outpt Oncology as they recommended it remain in place for 5 years in case of recurrence of lymphoma VTE Prophylaxis - SCDs Disposition -dc to home Total Time Total Time Spent Total Time Spent (In Minutes): 35 min Discharge Plan Discharge Items Patient Disposition: Home - Self-Care Reason For Visit: COMPLETE HEART BLOCK, BRADYCARDIA Discharge Diagnosis: Complete Heart Block Condition on Discharge: Good Activity: Per Instructions section Lifting: Gradually increase as tolerated Bathing: Keep incision dry Exercise/Sports: Gradually increase as tolerated Non-emergency contact: Primary Care Provider and Movie Shot Camera Operator Call non-emergency contact if: you have any medication questions and your symptoms worsen Follow-up/Referrals: Lane Polo MD [Physician] - 12/01/21 11:00 am Dashawn Lopez MD [Physician] - (Follow up within 1 month to discuss cardiac MRI) Nikki Tom MD [Primary Care Provider] - Diet: Carb Consistent or DM2 Addtl Attending Provider Instructions: ACTIVITY RECOMMENDATIONS: * Do not raise affected arm over head for 2 weeks. SPECIAL CARE INSTRUCTIONS: * If bleeding occurs, apply direct pressure to area for 5 minutes. * Call your doctor if you have severe pain, fever, drainage or bleeding at site. * Keep dressing on and dry for 48 hours then remove. * Keep any scheduled doctor's appointment. * Implant Card - hand held device with website information given. SKIN IRRITATION: * You may experience some redness and/or swelling in the area where radiation was administered. If any skin irritation occurs, please contact your family physician. FOLLOW UP VISIT: Keep any scheduled doctor appointments. Addtl Information Security Consultant Provider Instructions: You were admitted for a complete electrical heart block. You had a permanent pacemaker placed and were much improved. You can take the Tylenol with codeine as needed for moderate pain and plain tylenol for milder pain. Please talk to your Movie Shot Camera Operator about getting a cardiac MRI to look for cardiac sarcoidosis. This can be done in about 6 weeks after pacemaker implantation. Pending Studies at Discharge: No Stand-Alone Forms: My [facility] [employer] Medications and DC Order Prescriptions: New acetaminophen 325 mg Tablet 650 mg PO Q4H PRN (Reason: mild pain) Qty: 30 RF: 0 acetaminophen-codeine 300-30 mg Tablet 1 - 2 tab PO Q4H PRN (Reason: moderate-severe pain) Qty: 10 RF: 0 Continued (DME) pen needle, diabetic [BD Ultra-Fine Mini Pen Needle] 31 gauge x 3/16" needle See Dose Instructions .ROUTE .MEDSUPPLY Qty: 100 RF: 4 Trulicity 1.5 mg/0.5 mL pen injector 1.5 mg SQ WK Qty: 2 RF: 5 glipizide 10 mg tablet 10 mg PO QAM Qty: 90 RF: 1 spironolacton-hydrochlorothiaz 25-25 mg tablet 1 tab PO DAILY Qty: 90 RF: 3 Premarin 0.625 mg/gram cream See Rx Instructions .ROUTE .COMPLEX Qty: 30 RF: 0 rosuvastatin [Crestor] 20 mg tablet 20 mg PO HS Qty: 90 RF: 1 metformin 1,000 mg tablet 1,000 mg PO Q12H Qty: 180 RF: 1 methenamine hippurate 1 gram tablet 1 g PO Q12H Qty: 180 RF: 3 diltiazem HCl 300 mg capsule,extended release 24 hr 300 mg PO DAILY Qty: 30 RF: 2 losartan 50 mg tablet 50 mg PO DAILY Qty: 30 RF: 2 polyethylene glycol 3350 [Miralax] 17 gram/dose powder 17 g PO DAILY PRN (Reason: Constipation) RF: 0 aspirin [Ecotrin Low Strength] 81 mg Tablet,Delayed Release (Dr/Ec) 81 mg PO HS RF: 0 Toujeo SoloStar U-300 Insulin 300 unit/mL (1.5 mL) insulin pen 80 unit SUBCUT HS RF: 0 Discharge Orders: Discharge Order (Routine); Ordered 11/29/21 Ordered By: Mirella Riggs Admission Data Admit Date/Time: 11/25/21 21:11 Attending Provider: Mirella Riggs Admit Provider: Samuel Barrios Primary Care Provider: Nikik Tom Other Providers: Samuel Barrios ; Elliot Coto ; Steffen Crowell ; Dangelo Fernandez ; Hudson Hsu ; Tyrell Bobo ; Lane Polo ; Edmund Zimmerman Jr ; Dashawn Lopez ; Brit Barrow ; Lorena Vinson ; Ag Meyers ; Gregory Blue ; Juan M Amaya ; Ewa Shah ; Barbara Mccabe ; Álvaro Jacob ; Johnny Dejesus Michael K. ; Bishop Barragan Other Interventions: Discharge Summary Assessment (RN) Last Done: 11/29/21 09:46 Coding Level of Care Code D/C DAY MANAGEMENT >30 MINS Diagnoses Third degree heart block I44.2 Bradycardia R00.1 Acute kidney injury superimposed on CKD N17.9; N18.9 Diabetes mellitus, type II, insulin dependent E11.9; Z79.4 Aortic stenosis I35.0 Hyperlipidemia E78.5 Obstructive sleep apnea G47.33 B-cell lymphoma C85.10
== END 2021-11-29 11:50 | disposition home or self-care (01) | DRG 243 ==
LOC: ED 17:29 → SUATTDRO 21:11 → 1E 21:11
DX: I44.2 Atrioventricular block, complete; R06.02 Shortness of breath; J90 Pleural effusion, not elsewhere classified; Z88.8 Allergy status to other drugs, medicaments and biological substances; Z88.2 Allergy status to sulfonamides; Z91.09 Other allergy status, other than to drugs and biological substances; I47.2 Ventricular tachycardia; Z96.653 Presence of artificial knee joint, bilateral; E11.65 Type 2 diabetes mellitus with hyperglycemia; N17.9 Acute kidney failure, unspecified; Z79.84 Long term (current) use of oral hypoglycemic drugs; Z95.828 Presence of other vascular implants and grafts; Z85.72 Personal history of non-Hodgkin lymphomas; Z79.4 Long term (current) use of insulin; E66.9 Obesity, unspecified; Z79.82 Long term (current) use of aspirin; Z68.42 Body mass index [BMI] 45.0-49.9, adult; Z92.21 Personal history of antineoplastic chemotherapy; G47.33 Obstructive sleep apnea (adult) (pediatric); N18.30 Chronic kidney disease, stage 3 unspecified; Z79.899 Other long term (current) drug therapy; E78.5 Hyperlipidemia, unspecified; E11.649 Type 2 diabetes mellitus with hypoglycemia without coma; D86.85 Sarcoid myocarditis; I25.10 Atherosclerotic heart disease of native coronary artery without angina pectoris; I35.0 Nonrheumatic aortic (valve) stenosis; I12.9 Hypertensive chronic kidney disease with stage 1 through stage 4 chronic kidney disease, or unspecified chronic kidney disease; T38.0X5A Adverse effect of glucocorticoids and synthetic analogues, initial encounter

== ENCOUNTER 2022-07-03 08:09 | Inpatient (IN) ==
--- NOTE | 2022-07-03 08:35 | Emergency Department Note ---
Impression & Plan Hypoxia, Breath shortness, Elevated troponin ED Provider Note NAME: AV LAINEZ AGE: 71 SEX: F : 1950 ARRIVES VIA: Walk-In INFORMANT: Patient ED PROVIDER(S): Rojelio Herrmann DO CHIEF COMPLAINT: shortness of breath HPI: Patient is a 71-year-old female who presents ER with past medical history of CKD, aortic stenosis, LVH, hyperlipidemia, B-cell lymphoma, pleural effusions, heart block, sarcoid, diabetes who has been struggling with shortness of breath since this past December which was when she had her pacemaker placed for heart block. She did well until the summer at which point she had an adjustment of her pacemaker and did much better until June. She was doing great and able to walk about a city block in May. Symptoms started in June 30 and have been getting significant worse. She only walked 5 steps. She believes this to be a combination of her sarcoid as well as multiple other comorbidities. She follows with Dr. Infante and 2 weeks ago she was placed on Lasix and that has not been helping. She is unable to lie flat as she gets short of breath but this is not new. ROS: See above HPI for pertinent positives & negatives. A total of 10 systems reviewed and were otherwise negative. PAST MEDICAL HISTORY:See Below PAST SURGICAL HISTORY:See Below FAMILY HISTORY:See Below SOCIAL HISTORY:See Below HOME MEDICATIONS:See Below ALLERGIES:See Below VITALS:See Below PHYSICAL EXAMINATION: GENERAL: Sitting up in bed, alert, significantly dyspneic with short walk, unable to talk in full sentences EYE EXAM: normal conjunctiva. OROPHARYNX: Dry mucous membranes NECK: supple, no nuchal rigidity, no adenopathy, non-tender LUNGS: Clear to auscultation. Normal chest wall mechanics HEART: no murmurs, S1 normal and S2 normal ABDOMEN: abdomen soft, non-tender, normo-active bowel sounds, no masses, no rebound or guarding. UPPER EXTREMITIES: upper extremities are grossly normal. LOWER EXTREMITIES: Pitting edema bilateral lower extremities NEURO EXAM: Normal sensorium, cranial nerves II-XII grossly intact, normal speech, no gross weakness of arms, no gross weakness of legs. MEDICAL DECISION MAKING: Patient is a 71-year-old female who presents ER for the boasting complaint. IV was established blood work was obtained. Labs showed no significant leukocytosis or anemia. D-dimer was slightly elevated. BMP along with LFTs bilirubin was unremarkable. Troponin was positive. Lipase was unremarkable. She was hypoxic. She was placed on 2 L nasal cannula. She is given Lasix. COVID was negative. CT angio of the chest shows pleural effusions with pulmonary hypertension Triage Nursing notes reviewed. Limited review of prior medical records performed Vital Signs: reviewed and remarkable for HTN Differential diagnosis: Differential diagnoses includes but is not limited to pneumonia, bronchitis, COPD/Asthma exacerbation, pneumothorax, pulmonary embolism, congestive heart failure, acute coronary syndrome ER treatment provided: See below Diagnostics interpreted by me: ECG: Sinus tachycardia rate of 100 Right axis Atrial sensed ventricularly paced rhythm T wave inversions in the inferior leads Rhythm is paced in comparison to November 2021 Cardiac Monitoring: An order was placed for continuous cardiac monitoring. The monitor shows a rate of 90 with sinus rhythm. Laboratory studies: As stated above and show below. Imaging studies: CT angio of the chest as described above Consultation(s): Discussed with the hospitalist Dr. Austin Hoyos for further evaluation Procedures: none Critical Care: I have personally spent 32 minutes of critical care time in the direct management of this patient. This includes bedside care, interpretation of diagnostic studies, and testing, discussion with consultants, patient, and family members, and other required patient management activities. This 32 minutes is in excess of all separately billable procedures. Past Med/Surg History Medical History Anemia Aortic stenosis MILD CALCIFIC AORTIC STENOSIS NOTED ON 2005 ECHO [facility]. ECHO DONE 10/22/18 SHOWED NO . 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 BRONSON *MEDTRONIC DEVICE Personal history of malignant neoplasm of other parts of uterus SURGERY ONLY Port-A-Cath in place Sarcoidosis, lung Vitamin D deficiency Surgical History H/O breast biopsy BENIGN H/O colonoscopy H/O excision of mass LEFT NECK-DIAGNOSED WITH LYMPHOMA H/O total hysterectomy History of bronchoscopy History of cataract surgery RT/LEFT History of removal of Port-a-Cath Remove Access Port(Right) - Eddie Pineda DO, FACS [id number] History of tonsillectomy History of tooth extraction History of total knee arthroplasty RT/LEFT Family History Grandfather (Maternal) Family history of diabetes mellitus Family/Other Family history of diabetes mellitus Father Myocardial infarction Family history of esophageal cancer Other No family history of adverse response to anesthesia Denies family history of Ovarian cancer Prostate cancer Breast cancer Colorectal cancer Social History Smoking Status: Never smoker Second Hand Exposure: No; Do You Dip or Chew Tobacco: No; Tobacco Cessation Education Requested by Patient: No Hx Alcohol Use: Yes Hx Substance Use: No Preferred Language: Montserratian Communication Ability: Effective Visual Impairment: No Limitations Hearing Ability: Normal Commissioning Engineer Required: No Beliefs That Will Affect Care: None marital status: Current Living Situation: Alone current occupational status: employed current occupation: [employer] Other Information That Helps Us Care for You: No Feels Safe at Home: Yes Safety Concerns: Feels Safe At This Time Childhood Exposure to Second-Hand Smoke: Yes Dental Care, Regularly: Yes Physical Activity Frequency: Does not Exercise Seatbelt Use: always Sunscreen Use: Yes Assistive Devices: Cane, CPAP and Glasses Allergies Allergies Allergy/AdvReac Type Severity Reaction Status Date / Time cat dander Allergy Intermediate ITCHY Verified 06/21/22 11:27 EYES, SNEEZING, CONGESTION lisinopril Allergy Mild Cough Verified 06/21/22 11:27 Sulfa (Sulfonamide AdvReac Intermediate NAUSEA Verified 06/21/22 11:27 Antibiotics) codeine AdvReac Mild Vomiting Verified 06/21/22 11:27 Home Meds Home Medications Medication Instructions Recorded Confirmed aspirin 81 mg tablet,delayed 81 mg PO HS 10/18/18 07/03/22 release (Ecotrin Low Strength) polyethylene glycol 3350 17 17 g PO DAILY PRN Constipation 04/11/21 07/03/22 gram/dose oral powder (Miralax) insulin glargine U-300 conc 300 75 unit subcut HS 01/11/22 07/03/22 unit/mL (1.5 mL) subcutaneous pen (Toukrystyna SoloStar U-300 Insulin) diltiazem HCl 300 mg capsule,24 300 mg PO QAM 02/03/22 07/03/22 hr,extended release glipizide 5 mg tablet 5 mg PO QAM 05/01/22 07/03/22 losartan 50 mg tablet 75 mg PO QAM 05/01/22 07/03/22 Previous Rx's Medication Instructions Recorded conjugated estrogens 0.625 mg/gram See Rx Instructions .Route 04/12/22 vaginal cream (Premarin) .COMPLEX #30 grams dulaglutide 1.5 mg/0.5 mL 1.5 mg (0.5 mL) subcut WK #2 mL 04/26/22 subcutaneous pen injector (Trulicity) metformin 1,000 mg tablet 1,000 mg PO Q12H #180 tabs 05/01/22 rosuvastatin 20 mg tablet (Crestor) 20 mg PO HS #90 tabs 05/01/22 pen needle, diabetic 31 gauge x #100 ea 05/15/22 3/16" (BD Ultra-Fine Mini Pen Needle) furosemide 20 mg tablet (Lasix) 20 mg PO DAILY #30 tabs 06/02/22 Results & Data (ED) Vital Signs Vital Signs - 24 hr 07/03/22 08:18 07/03/22 08:38 07/03/22 08:59 Temperature 36.5 C Temperature Source Temporal Artery Scan Pulse Rate 96 H 104 H Pulse Rate from SpO2 Sensor Pulse Rhythm Regular Respiratory Rate 24 28 H Blood Pressure 160/98 H Blood Pressure Mean 118 Blood Pressure Position Sitting Pulse Oximetry 93 92 Oxygen Delivery Method Room Air Room Air Room Air Oxygen Flow Rate Sepsis Recent Fever Within 48 Hours No Sepsis New/Unexplained Change in Mental Status No Sepsis Action Taken by Nursing No Action Required 07/03/22 08:59 07/03/22 09:40 07/03/22 09:41 Temperature Temperature Source Pulse Rate 101 H Pulse Rate from SpO2 Sensor 104 H Pulse Rhythm Respiratory Rate 15 Blood Pressure 176/98 H Blood Pressure Mean 124 Blood Pressure Position Pulse Oximetry 92 88 L 93 Oxygen Delivery Method Room Air Room Air Nasal Cannula Oxygen Flow Rate 2 Sepsis Recent Fever Within 48 Hours Sepsis New/Unexplained Change in Mental Status Sepsis Action Taken by Nursing Laboratory Data Result diagrams: 07/03/22 08:50 07/03/22 08:50 Lab Results 07/03/22 07/03/22 07/03/22 Range/Units 08:50 08:50 08:50 WBC 8.88 (4.8-10.8) K/ul RBC 3.96 (3.93-5.22) M/uL Hgb 11.5 L (12.0-16.0) g/dl Hct 35.5 (34.1-44.9) % MCV 89.6 (80.0-100.0) fL MCH 29.0 (25.0-34.0) pg MCHC 32.4 (32.0-36.0) g/dL RDW Std Deviation 61.2 H (36.4-46.3) fL RDW Coeff of Shruti 18.7 H (11.5-14.5) % Plt Count 354 (130-400) K/uL MPV 9.1 L (9.4-12.3) fL Immature Gran % (Auto) 0.5 % Neut % (Auto) 83.7 % Lymph % (Auto) 8.9 % Franklin % (Auto) 5.1 % Eos % (Auto) 1.6 % Baso % (Auto) 0.2 % Neut # (Auto) 7.44 H (1.4-6.5) K/uL Lymph # (Auto) 0.79 L (1.2-3.4) K/uL Franklin # (Auto) 0.45 (0.24-0.82) K/uL Eos # (Auto) 0.14 (0-0.50) K/uL Baso # (Auto) 0.02 (0-0.2) K/uL Immature Gran # (Auto) 0.04 H (0.00-0.02) K/uL D-Dimer 570 H* (0-500) ug/L FEU Sodium 139 (136-145) mmol/L Potassium 3.9 (3.5-5.1) mmol/L Chloride 104 (98-107) mmol/L Carbon Dioxide 25 (21-32) mmol/L Anion Gap 10 (3-11) BUN 15 (6-23) mg/dl Creatinine 1.09 (0.6-1.2) mg/dl Est Cr Clr Drug Dosing 59.7 ml/min Est GFR ( Amer) 60.0 ml/min Est GFR (Non-Af Amer) 51.8 ml/min BUN/Creatinine Ratio 13.8 (10-20) Glucose 127 H (70-99(Fasting)) mg/dl Calcium 9.3 (8.5-10.1) mg/dl Total Bilirubin 0.5 (0.2-1.0) mg/dl AST 18 (13-39) U/L ALT 13 (7-52) U/L Alkaline Phosphatase 53 (34-104) U/L Troponin I High Sens 32.8 H (0-14) pg/ml Total Protein 7.4 (6.0-8.3) gm/dl Albumin 4.0 (3.4-5.0) gm/dl Globulin 3.4 (2.5-4.0) gm/dl Albumin/Globulin Ratio 1.2 (0.9-2) Lipase 31 (11-82) U/L SARS-CoV-2, RNA, NAAT (NEGATIVE) 07/03/22 Range/Units 08:50 WBC (4.8-10.8) K/ul RBC (3.93-5.22) M/uL Hgb (12.0-16.0) g/dl Hct (34.1-44.9) % MCV (80.0-100.0) fL MCH (25.0-34.0) pg MCHC (32.0-36.0) g/dL RDW Std Deviation (36.4-46.3) fL RDW Coeff of Shruti (11.5-14.5) % Plt Count (130-400) K/uL MPV (9.4-12.3) fL Immature Gran % (Auto) % Neut % (Auto) % Lymph % (Auto) % Franklin % (Auto) % Eos % (Auto) % Baso % (Auto) % Neut # (Auto) (1.4-6.5) K/uL Lymph # (Auto) (1.2-3.4) K/uL Franklin # (Auto) (0.24-0.82) K/uL Eos # (Auto) (0-0.50) K/uL Baso # (Auto) (0-0.2) K/uL Immature Gran # (Auto) (0.00-0.02) K/uL D-Dimer (0-500) ug/L FEU Sodium (136-145) mmol/L Potassium (3.5-5.1) mmol/L Chloride (98-107) mmol/L Carbon Dioxide (21-32) mmol/L Anion Gap (3-11) BUN (6-23) mg/dl Creatinine (0.6-1.2) mg/dl Est Cr Clr Drug Dosing ml/min Est GFR ( Amer) ml/min Est GFR (Non-Af Amer) ml/min BUN/Creatinine Ratio (10-20) Glucose (70-99(Fasting)) mg/dl Calcium (8.5-10.1) mg/dl Total Bilirubin (0.2-1.0) mg/dl AST (13-39) U/L ALT (7-52) U/L Alkaline Phosphatase (34-104) U/L Troponin I High Sens (0-14) pg/ml Total Protein (6.0-8.3) gm/dl Albumin (3.4-5.0) gm/dl Globulin (2.5-4.0) gm/dl Albumin/Globulin Ratio (0.9-2) Lipase (11-82) U/L SARS-CoV-2, RNA, NAAT NEGATIVE (NEGATIVE) Administered Medications Insulin Aspart (Insulin Aspart Per Unit) 0 units SC ACHS MICHELLE Stop: 08/02/22 14:22 Last Admin: 07/03/22 15:05 Dose: Not Given Documented By: JAMES Co-signed By: SANJAY Discontinued Medications Albuterol (Albuterol 0.083% Nebu Soln 3 Ml Vial) 2.5 mg NEB NOW STA; Protocol Stop: 07/03/22 11:31 Last Admin: 07/03/22 11:43 Dose: 2.5 mg Documented By: YULISSA Furosemide (Furosemide 40 Mg/4 Ml Vial) 40 mg IV NOW STA Stop: 07/03/22 10:38 Last Admin: 07/03/22 11:25 Dose: 40 mg Documented By: JAMES Ioversol (Optiray 300 500ml) 120 ml IV ONCE ONE Stop: 07/03/22 10:03 Last Admin: 07/03/22 10:02 Dose: 120 ml Documented By: DREW Imaging Data Radiologist's Impression: Chest X-Ray 07/03/22 08:32 XR chest 1V portable HISTORY: 71 years-old Female Chest Pain acute chest pain COMPARISON: 04/17/2022 TECHNIQUE: AP view of the chest FINDINGS: Cardiac silhouette is enlarged. Left subclavian pacer. Small pleural effusions with mild bibasilar opacities and pulmonary vascular congestion interstitial coarsening. No pneumothorax. Degenerative changes of the shoulders and spine. IMPRESSION: 1. Cardiomegaly with pulmonary edema. 2. Small pleural effusions with mild bibasilar opacities. ACT 112: Negative or not required by law. The above report was generated using voice recognition software. It may contain grammatical, syntax or spelling errors. Electronically signed by: Damion Oswald M.D. 07/03/2022 8:41 AM Chest CTA 07/03/22 09:29 CT angio chest PE protocol CT DOSE: 920.12 mGy.cm HISTORY: 71 years-old Female with sob +dd tachy. Acute shortness of breath with hypertension TECHNIQUE: Multiple CTA images of the chest were obtained after the intravenous administration of 120 ml Optiray. Coronal and sagittal MIPS were obtained from the axial data set and were submitted for review. All measurements were obtained according to NASCET criteria. A dose lowering technique was utilized adhering to the principles of ALARA. COMPARISON: Chest radiograph of same day, CTA chest 11/25/2021 FINDINGS: Cardiomegaly with left subclavian pacer. Extensive coronary artery calcifications. Atherosclerosis of the thoracic aorta without aneurysm. Dilated pulmonary artery, 4.1 cm suggestive of pulmonary arterial hypertension. Distal pulmonary arterial branches are not well evaluated secondary to respiratory motion artifact. No central pulmonary emboli identified. CT CHEST: No thyroid nodule. There are a few mildly enlarged right hilar lymph nodes measuring up to 1.2 cm. Subcentimeter pneumomediastinum lymph nodes, likely reactive. Small left with moderate right pleural effusions. No pneumothorax. Intralobular septal thickening with bronchial wall thickening. Right greater left bibasilar consolidation. Mild intermixed groundglass opacities are present bilaterally. 6 mm solid nodule within the lateral segment right middle lobe, image 109 is stable. Central airways are patent. No acute process of the imaged upper abdomen. Unremarkable soft tissues. No acute fracture or destructive bone lesion identified. IMPRESSION: 1. Limited exam as above. No central pulmonary emboli identified. 2. Cardiomegaly with pulmonary edema and findings suggestive of pulmonary arterial hypertension. 3. Right greater than left pleural effusions with bibasilar consolidation. 4. Mild lymphadenopathy, likely reactive. 5. Stable 6 mm solid nodule of the right middle lobe. ACT 112: Negative or not required by law. The above report was generated using voice recognition software. It may contain grammatical, syntax or spelling errors. Electronically signed by: Damion Oswald M.D. 07/03/2022 10:22 AM Discharge Plan Visit Data Chief Complaint: Shortness of Breath/Dyspnea Stated Complaint: SOB, WEAKNESS, HYPERTENSION ED Provider: Rojelio Herrmann Discharge Problem: Hypoxia, Breath shortness, Elevated troponin Patient Disposition: Admitted As Inpatient Discharge Instructions Interventions: ED Discharge Assessment Last Done: 07/03/22 14:24
--- NOTE | 2022-07-03 08:43 | XRay Report ---
XR chest 1V portable HISTORY: 71 years-old Female Chest Pain acute chest pain COMPARISON: 04/17/2022 TECHNIQUE: AP view of the chest FINDINGS: Cardiac silhouette is enlarged. Left subclavian pacer. Small pleural effusions with mild bibasilar op acities and pulmonary vascular congestion interstitial coarsening. No pneumothorax. Degenerative marshall ges of the shoulders and spine. IMPRESSION: 1. Cardiomegaly with pulmonary edema. 2. Small pleural effusions with mild bibasilar opacities. ACT 112: Negative or not required by law. The above report was generated using voice recognition software. It may contain grammatical, syntax o r spelling errors. Electronically signed by: Damion Oswald M.D. 07/03/2022 8:41 AM
[2022-07-03 09:06] LABS: Basophils # (auto) 0.02 K/uL (0-0.2); Basophils % (auto) 0.2 %; Eosinophils # (auto) 0.14 K/uL (0-0.50); Eosinophils % (auto) 1.6 %; Hematocrit (blood only) 35.5 % (34.1-44.9); Hemoglobin 11.5 g/dl (12.0-16.0); Immature Granulocytes # (auto) 0.04 K/uL (0.00-0.02); Immature Granulocytes % (auto) 0.5 %; Lymphocytes # (auto) 0.79 K/uL (1.2-3.4); Lymphocytes % (auto) 8.9 %; Mean Corpuscular Hgb Conc 32.4 g/dL (32.0-36.0); Mean Corpuscular Volume 89.6 fL (80.0-100.0); Mean Platelet Volume 9.1 fL (9.4-12.3); Monocytes # (auto) 0.45 K/uL (0.24-0.82); Monocytes % (auto) 5.1 %; Neutrophils # (auto) 7.44 K/uL (1.4-6.5); Neutrophils % (auto) 83.7 %; Platelet Count 354 K/uL (130-400); RDW Coefficient of Variation 18.7 % (11.5-14.5); RDW Standard Deviation 61.2 fL (36.4-46.3); Red Blood Count 3.96 M/uL (3.93-5.22); White Blood Count 8.88 K/ul (4.8-10.8)
[2022-07-03 09:28] LABS: D Dimer 570 ug/L FEU (0-500)
[2022-07-03 09:29] LABS: Albumin Globulin Ratio 1.2 (0.9-2); BUN Creatinine Ratio 13.8 (10-20); Bilirubin,Total 0.5 mg/dl (0.2-1.0); Calcium 9.3 mg/dl (8.5-10.1); Creatinine Clr Calc Pharmacy 59.7 ml/min; Est GFR (Non-African American) 51.8 ml/min; Globulin 3.4 gm/dl (2.5-4.0); Potassium 3.9 mmol/L (3.5-5.1); Total Protein 7.4 gm/dl (6.0-8.3)
[2022-07-03 09:31] LABS: Troponin I High Sensitivity 32.8 pg/ml (0-14)
[2022-07-03] MEDS ORDERED: OPTIRAY 300 500mL IV ONE (10:02)
--- NOTE | 2022-07-03 10:24 | CT Scan Report ---
CT angio chest PE protocol CT DOSE: 920.12 mGy.cm HISTORY: 71 years-old Female with sob +dd tachy. Acute shortness of breath with hypertension TECHNIQUE: Multiple CTA images of the chest were obtained after the intravenous administration of 120 ml Optiray. Coronal and sagittal MIPS were obtained from the axial data set and were submitted for review. All measurements were obtained according to NASCET criteria. A dose lowering technique was u tilized adhering to the principles of ALARA. COMPARISON: Chest radiograph of same day, CTA chest 11/25/2021 FINDINGS: Cardiomegaly with left subclavian pacer. Extensive coronary artery calcifications. Atherosclerosis of the thoracic aorta without aneurysm. Dilated pulmonary artery, 4.1 cm suggestive of pulmonary arteri al hypertension. Distal pulmonary arterial branches are not well evaluated secondary to respiratory m otion artifact. No central pulmonary emboli identified. CT CHEST: No thyroid nodule. There are a few mildly enlarged right hilar lymph nodes measuring up to 1.2 cm. Orozco bcentimeter pneumomediastinum lymph nodes, likely reactive. Small left with moderate right pleural effusions. No pneumothorax. Intralobular septal thickening wit h bronchial wall thickening. Right greater left bibasilar consolidation. Mild intermixed groundglass opacities are present bilaterally. 6 mm solid nodule within the lateral segment right middle lobe, im age 89 is stable. Central airways are patent. No acute process of the imaged upper abdomen. Unremarkable soft tissues. No acute fracture or destruc tive bone lesion identified. IMPRESSION: 1. Limited exam as above. No central pulmonary emboli identified. 2. Cardiomegaly with pulmonary edema and findings suggestive of pulmonary arterial hypertension. 3. Right greater than left pleural effusions with bibasilar consolidation. 4. Mild lymphadenopathy, likely reactive. 5. Stable 6 mm solid nodule of the right middle lobe. ACT 112: Negative or not required by law. The above report was generated using voice recognition software. It may contain grammatical, syntax o r spelling errors. Electronically signed by: Damion Oswald M.D. 07/03/2022 10:22 AM
[2022-07-03] MEDS ORDERED: FUROSEMIDE 40 MG/4 ML VIAL IV STA (10:37)
--- NOTE | 2022-07-03 10:44 | History & Physical Report ---
Date of Service July 03, 2022 Assessment & Plan (1) JACKSON (dyspnea on exertion): Plan: - Etiology entirely clear as patient is presenting more as a COPD or asthma exacerbation, however does not have a history of/or tobacco history. This has been an ongoing issue for several months, was initially improved after pacer placed in November due to 3rd degree AV block. Previously felt that dyspnea is multifactorial due to diastolic dysfunction, , and restrictive lung disease 2/2 body habitus. She has known MAX requiring CPAP at night. She also has mild aortic stenosis seen on echo from April, EF 50% at the time. There is no indication on labs or imaging to suggest an infectious process as cause. - Patient received breathing treatment and placed on CPAP in ED, now breathing much more comfortably. Continue CPAP until able to transition to NC, continue CPAP at night. - 40 mg of IV Lasix was given in ED, will continue this dose as there is evidence of pulmonary edema and pleural effusions on CXR and chest CT. - Echo ordered to eval for worsening aortic stenosis. - ABG ordered to assess for CO2 retention. (2) Aortic stenosis: Plan: - Mild , EF 50% 04/28/2022. - Repeat echo this admission given worsening dyspnea x 2 weeks. (3) Elevated troponin: Plan: - Troponin mildly elevated at 32, we will repeat this. Likely elevated in the setting of tachycardia and hypoxia. - An echo will be obtained as above given worsening dyspnea and known . (4) Obstructive sleep apnea: Plan: - Continue CPAP at night. (5) CKD (chronic kidney disease) stage 3, GFR 30-59 ml/min: Plan: - Cr 1.09, baseline. - Avoid nephrotoxins and renally dose medications as able. - BMP in AM. - With secondary anemia, Hgb 11.5 today, stable w/ baseline. (6) Diabetes mellitus, type II, insulin dependent: Plan: - Hold metformin, Trulicity, glipizide. - Continue basale insulin--Toujeo 75 units HS. - Accuchekcs ACHS with SSI. - A1c in March-- 6%. (7) Hyperlipidemia: Plan: - Continue statin. (8) Status post placement of cardiac pacemaker: Plan: - In November s/p 3rd degree AV block. (9) Pleural effusion: Plan: - Continue Lasix 40 mg IV BID. (10) Essential hypertension: Plan: - Continue Diltazem, losartan. - Spironolactone/HCTZ stopped when Lasix was added on one month ago. (11) Sarcoid: Plan: - Stage 1, w/ mediastinal adenopathy and pulmonary nodules. Follows with pulmonary. Plan - ADmit to med/tele. - SCDs, Lovenox for VTE ppx. - Full Code. History of Present Illness Chief Complaint: ongoing, worsening shortness of breath for 2 weeks Primary Care Provider: Nikki Tom MD Tiffani Hawk is a 71-year-old female with past medical history significant for aortic stenosis, LVH, CKD, hypertension, DM2, MAX, sarcoidosis who is presenting today with shortness of breath. She notes 2 weeks ago that she was more winded with walking and is also waking up in the middle of the night short of breath despite using CPAP. It is difficult for her to lay flat, she is significantly winded after walking several steps in her home. She was started on 20 mg of Lasix once daily 2 weeks ago, however without any alleviation. She has a chronic dry cough, but denies fever chills, body aches, sinus congestion, and chest pain. Her base weight is 250 pounds, she weighed 254 pounds at her most recent office visit. She has mild bilateral lower extremity swelling which she states is not far off for baseline. She is tachypneic and tachycardic on exam wearing 2L NC and using respiratory muscles to breathe. She was transitioned to CPAP and now breathing much more comfortably. Labs largely unrevealing, she has a stable anemia, D-dimer mildly elevated 570, but CT without evidence of PE. It does show cardiomegaly with pulmonary edema and finding suggestive of pulmonary arterial hypertension with R >L pleural effusions with bibasilar consolidation. There is also a stable 6 mm solid nodule in the right middle lobe. Troponin is mildly elevated at 32. Renal function at baseline. Electrolytes within normal limits, no anion gap. COVID negative. Allergies Allergy/AdvReac Type Severity Reaction Status Date / Time cat dander Allergy Intermediate ITCHY Verified 06/21/22 11:27 EYES, SNEEZING, CONGESTION lisinopril Allergy Mild Cough Verified 06/21/22 11:27 Sulfa (Sulfonamide AdvReac Intermediate NAUSEA Verified 06/21/22 11:27 Antibiotics) codeine AdvReac Mild Vomiting Verified 06/21/22 11:27 Home Medications Medication Instructions Recorded Confirmed Type aspirin 81 mg tablet,delayed 81 mg PO HS 10/18/18 07/03/22 History release (Ecotrin Low Strength) polyethylene glycol 3350 17 17 g PO DAILY PRN Constipation 04/11/21 07/03/22 History gram/dose oral powder (Miralax) insulin glargine U-300 conc 300 75 unit subcut HS 01/11/22 07/03/22 History unit/mL (1.5 mL) subcutaneous pen (Toujeo SoloStar U-300 Insulin) diltiazem HCl 300 mg capsule,24 300 mg PO QAM 02/03/22 07/03/22 History hr,extended release conjugated estrogens 0.625 mg/gram See Rx Instructions .Route 04/12/22 07/03/22 Rx vaginal cream (Premarin) .COMPLEX #30 grams dulaglutide 1.5 mg/0.5 mL 1.5 mg (0.5 mL) subcut WK #2 mL 04/26/22 07/03/22 Rx subcutaneous pen injector (Trulicity) glipizide 5 mg tablet 5 mg PO QAM 05/01/22 07/03/22 History losartan 50 mg tablet 75 mg PO QAM 05/01/22 07/03/22 History metformin 1,000 mg tablet 1,000 mg PO Q12H #180 tabs 05/01/22 07/03/22 Rx rosuvastatin 20 mg tablet (Crestor) 20 mg PO HS #90 tabs 05/01/22 07/03/22 Rx pen needle, diabetic 31 gauge x #100 ea 05/15/22 06/21/22 Rx 3/16" (BD Ultra-Fine Mini Pen Needle) furosemide 20 mg tablet (Lasix) 20 mg PO DAILY #30 tabs 06/02/22 07/03/22 Rx Past Med/Surg History Medical History Anemia Aortic stenosis MILD CALCIFIC AORTIC STENOSIS NOTED ON 2005 ECHO [facility]. ECHO DONE 10/22/18 SHOWED NO . Arthritis Chronic kidney disease, stage 3a CKD (chronic kidney disease) stage 3, GFR 30-59 ml/min Diabetes mellitus, type 2 Essential (primary) hypertension History of B-cell lymphoma TREATMENT FOR 1 YEAR *R-CHOP (LAST TX 2018) Hyperlipidemia FPC current use of insulin LVH (left ventricular hypertrophy) Mediastinal lymphadenopathy Morbid obesity Neuropathy Nonsustained ventricular tachycardia MAX (obstructive sleep apnea) USING CPAP HS Pacemaker INSERTED 11/28/21 FOR HEARTBLOCK>FOLLOWED BY DR. BRONSON *MEDTRON[employer] DEVICE Personal history of malignant neoplasm of other parts of uterus SURGERY ONLY Port-A-Cath in place Sarcoidosis, lung Vitamin D deficiency Surgical History H/O breast biopsy BENIGN H/O colonoscopy H/O excision of mass LEFT NECK-DIAGNOSED WITH LYMPHOMA H/O total hysterectomy History of bronchoscopy History of cataract surgery RT/LEFT History of removal of Port-a-Cath Remove Access Port(Right) - Eddie Pineda DO, FACS [id number] History of tonsillectomy History of tooth extraction History of total knee arthroplasty RT/LEFT Family History Grandfather (Maternal) Family history of diabetes mellitus Family/Other Family history of diabetes mellitus Father Myocardial infarction Family history of esophageal cancer Other No family history of adverse response to anesthesia Denies family history of Ovarian cancer Prostate cancer Breast cancer Colorectal cancer Social History Smoking Status: Never smoker Second Hand Exposure: Yes (IN THE PAST); Hx Alcohol Use: Yes Preferred Language: [place] Communication Ability: Effective Visual Impairment: No Limitations Hearing Ability: Normal Medical Case Worker Required: No Beliefs That Will Affect Care: None marital status: Current Living Situation: Alone current occupational status: employed current occupation: [employer] Safe at Home: Yes Childhood Exposure to Second-Hand Smoke: Yes Dental Care, Regularly: Yes Physical Activity Frequency: Does not Exercise Seatbelt Use: always Sunscreen Use: Yes Assistive Devices: CPAP and Glasses Review of Systems Review of Systems: Constitutional: No fever/chills, weakness, fatigue, myalgias, anorexia, night sweats Eyes: No diplopia, no worsening or blurred vision ENT: normal hearing, no trouble swallowing Respiratory: shortness of breath with minor activity x 2 weeks acutely worsened today; chronic dry cough unchanged; no sputum production Abdomen: No pain, nausea, vomiting, diarrhea or constipation : Denies dysuria, hematuria, increased urgency/frequency, urinary retention Musculoskeletal: No joint pain, calf pain, swelling Neurologic: No weakness, numbness/tingling, or balance problems Psychiatric: No anxiety or depression Skin: No rash or itch Physical Exam Physical Exam: General: awake, alert, patient appears uncomfortable in mild-moderate distress using accessory muscles to breathe; Head: Normocephalic, atraumatic ENT: PERRL, EOMI, no pharyngeal exudate, mucous membranes moist Chest: some scattered wheezing throughout, on 2 L NC Cardiac: tachycardic rate and rhythm, no murmur, no JVD, normal peripheral pulses, good capillary refill Abdominal: NABS x 4 quadrants, soft, nontender to palpation, no rebound, guarding or tenderness Extremities: b/l trace, 1+ LE edema; otherwise normal inspection, erythema, calfs nontender to palpation Psych: Normal mood and affect Neuro: AAO x 3, strength intact bilaterally and rated 5/5, no motor deficits, speech is clear, no peripheral sensory deficits Skin: no rash or erythema Results & Data Results & Data ([facility]) Vital Signs (Past 12 Hours) Vital Signs Temp Pulse Resp BP Pulse Ox O2 Del Method O2 Flow Rate 07/03/22 09:41 101 H 15 176/98 H 93 Nasal Cannula 2 07/03/22 09:40 88 L Room Air 07/03/22 08:59 92 Room Air 07/03/22 08:59 Room Air 07/03/22 08:38 104 H 28 H 92 Room Air 07/03/22 08:18 36.5 C 96 H 24 160/98 H 93 Room Air Laboratory Results Abnormal lab results 07/03/22 07/03/22 07/03/22 Range/Units 08:50 08:50 08:50 Hgb 11.5 L (12.0-16.0) g/dl RDW Std Deviation 61.2 H (36.4-46.3) fL RDW Coeff of Shruti 18.7 H (11.5-14.5) % MPV 9.1 L (9.4-12.3) fL Neut # (Auto) 7.44 H (1.4-6.5) K/uL Lymph # (Auto) 0.79 L (1.2-3.4) K/uL Immature Gran # (Auto) 0.04 H (0.00-0.02) K/uL D-Dimer 570 H* (0-500) ug/L FEU Glucose 127 H (70-99(Fasting)) mg/dl Troponin I High Sens 32.8 H (0-14) pg/ml Diagnostic Findings Chest X-Ray 07/03/22 08:32 XR chest 1V portable HISTORY: 71 years-old Female Chest Pain acute chest pain COMPARISON: 04/17/2022 TECHNIQUE: AP view of the chest FINDINGS: Cardiac silhouette is enlarged. Left subclavian pacer. Small pleural effusions with mild bibasilar opacities and pulmonary vascular congestion interstitial coarsening. No pneumothorax. Degenerative changes of the shoulders and spine. IMPRESSION: 1. Cardiomegaly with pulmonary edema. 2. Small pleural effusions with mild bibasilar opacities. ACT 112: Negative or not required by law. The above report was generated using voice recognition software. It may contain grammatical, syntax or spelling errors. Electronically signed by: Damion Oswald M.D. 07/03/2022 8:41 AM Chest CTA 07/03/22 09:29 CT angio chest PE protocol CT DOSE: 920.12 mGy.cm HISTORY: 71 years-old Female with sob +dd tachy. Acute shortness of breath with hypertension TECHNIQUE: Multiple CTA images of the chest were obtained after the intravenous administration of 120 ml Optiray. Coronal and sagittal MIPS were obtained from the axial data set and were submitted for review. All measurements were obtained according to NASCET criteria. A dose lowering technique was utilized adhering to the principles of ALARA. COMPARISON: Chest radiograph of same day, CTA chest 11/25/2021 FINDINGS: Cardiomegaly with left subclavian pacer. Extensive coronary artery calcifications. Atherosclerosis of the thoracic aorta without aneurysm. Dilated pulmonary artery, 4.1 cm suggestive of pulmonary arterial hypertension. Distal pulmonary arterial branches are not well evaluated secondary to respiratory motion artifact. No central pulmonary emboli identified. CT CHEST: No thyroid nodule. There are a few mildly enlarged right hilar lymph nodes measuring up to 1.2 cm. Subcentimeter pneumomediastinum lymph nodes, likely reactive. Small left with moderate right pleural effusions. No pneumothorax. Intralobular septal thickening with bronchial wall thickening. Right greater left bibasilar consolidation. Mild intermixed groundglass opacities are present bilaterally. 6 mm solid nodule within the lateral segment right middle lobe, image 109 is stable. Central airways are patent. No acute process of the imaged upper abdomen. Unremarkable soft tissues. No acute fracture or destructive bone lesion identified. IMPRESSION: 1. Limited exam as above. No central pulmonary emboli identified. 2. Cardiomegaly with pulmonary edema and findings suggestive of pulmonary arterial hypertension. 3. Right greater than left pleural effusions with bibasilar consolidation. 4. Mild lymphadenopathy, likely reactive. 5. Stable 6 mm solid nodule of the right middle lobe. ACT 112: Negative or not required by law. The above report was generated using voice recognition software. It may contain grammatical, syntax or spelling errors. Electronically signed by: Damion Oswald M.D. 07/03/2022 10:22 AM ECG Additional Comments: Atrial-sensed ventricular-paced rhythm Abnormal ECG When compared with ECG of 28-NOV-2021 11:20, Electronic ventricular pacemaker has replaced Sinus rhythm. Code Status & VTE Plan Code Status Full Code. Supervising Physician Co-Signing Physician Notes Patient was seen and examined independently I discussed the case with Madyson BELLAMY I reviewed pertinent past medical social family history and also the plan of care and agree with the plan of care. But in the interim patient was having significant work of breathing acute respiratory failure with tachypnea and accessory muscle use and tripoding Patient was given Lasix emergency department we did start CPAP she typically on 12 cm this was reading on. She is much more comfortable being on the CPAP therapy Examination initially showed her to be in distress using accessory muscles and tachypneic her card exam was tachycardic but regular She had a trace to 1+ bilateral lower extremity edema Initial troponin is elevated be repeated echocardiogram be performed. Patient's had a gradual decline over the last few weeks certainly evaluate her cardiovascular performance will be part of the understanding of what is causing her to be increasingly short of breath and appear to be in likely diastolic heart failure with a history of valvular heart disease. Any exceptions will be noted below PG Care Time/CCT Total # of Minutes Spent Total Time Spent with Patient: Total time spent is greater than 50% in coordination of care (as documented) at patient's floor/unit and/or counseling patient: Coding Level of Care Code 95218 Initial Inpt Care Lvl 3 Diagnoses JACKSON (dyspnea on exertion) R06.09 Aortic stenosis I35.0 Elevated troponin R77.8 Obstructive sleep apnea G47.33 CKD (chronic kidney disease) stage 3, GFR 30-59 ml/min N18.3 Diabetes mellitus, type II, insulin dependent E11.9; Z79.4 Hyperlipidemia E78.5 Status post placement of cardiac pacemaker Z95.0 Pleural effusion J90 Essential hypertension I10 Sarcoid D86.9
[2022-07-03] MEDS ORDERED: ALBUTEROL 0.083% NEBU SOLN 3 ML VIAL NEB STA (11:30)
[2022-07-03 12:52] LABS: Allen Test POS (Pos); Base Excess ABG 0.8 mEq/L (-9-1.8); HCO3 ABG 24 mmol/L (19-24); Oxygen Saturation ABG 97.9 % (90-95); PCO2 ABG 34 mmHg (35-46); PO2 ABG 88 mmHg (80-95); pH ABG 7.46 (7.35-7.45)
[2022-07-03] MEDS ORDERED: CARBOHYDRATES FOR HYPOGLYCEMIA PO PRN (14:23)
[2022-07-03] MEDS ORDERED: DEXTROSE 50% 50 ML SYRINGE IV PRN (14:23)
[2022-07-03] MEDS ORDERED: GLUCAGON FOR INJ 1 MG VIAL SQ PRN (14:23)
[2022-07-03] MEDS ORDERED: MoRPHine SULFATE 2 MG/ML CARP IV STA (14:23)
[2022-07-03] MEDS ORDERED: PHARMACY GLYCEMIC MGMT CONSULT PRN (14:23)
[2022-07-03] MEDS ORDERED: ACETAMINOPHEN 325 MG TAB PO PRN (14:23)
[2022-07-03] MEDS ORDERED: GLUCOSE 10 TAB/TUBE PO PRN (14:23)
[2022-07-03] MEDS ORDERED: ONDANSETRON INJ 2 MG/ML 2 ML VIAL IV PRN (14:23)
[2022-07-03] MEDS ORDERED: GLUCOSE 40% GEL 15 GM TUBE PO PRN (14:23)
[2022-07-03] MEDS ORDERED: POLYETHYLENE (MIRALAX) 17 GM PACK PO PRN (14:23)
--- NOTE | 2022-07-03 14:58 | Pharmacy Report ---
Pharmacy Glycemic Short Note 2 - Date of Service July 03, 2022 - Glycemic Short BSG Results (Last 24 hours): 07/03/22 07/03/22 08:50 13:10 Glucose 127 H POC Glucose 187 H OUTPATIENT ANTIDIABETIC REGIMEN: * trulicity, glipizide, toujeo 75 units qpm, metformin * 6% - march 2022 per notes ASSESSMENT: * 71 year old female admitted with shortness of breath. Type 2 diabetic, pharmacy consulted for glycemic management. Patient on toujeo 75 units hs, last dose given last evening prior to admission. Fasting BSG 127 mg/dL - typically do adjust initial Lantus dose ~20% when converting between toujeo and Lantus. Anticipate patient needing less as likely large basal dose at home covering some prandial needs too. Patient is known to us from previous admission 11/25/21 where 40-50 units of basal insulin seemed appropriate. Will trial 40 units of lantus for tonight and use stress of 2 dosing for novolog for now PLAN FOR INPATIENT GLYCEMIC CONTROL: * Hold outpatient oral diabetes medications * Basal insulin * Lantus 40 units SQ hs * Bolus insulin * NovoLog per scale ACHS or Q6hrs while NPO * Goal Range: Low 110 mg/dL - High 140 mg/dL * Correction Factor: 20 mg/dL/unit * Nutritional / Prandial insulin per carb ratio of 1 unit per 7 grams CHO consumed
[2022-07-03] MEDS: INSULIN ASPART PER UNIT SC SCH ×3 (15:05→22:44)
--- NOTE | 2022-07-03 15:39 | Electrocardiogram Report ---
Test Reason : Blood Pressure : / mmHG Vent. Rate : 100 BPM Atrial Rate : 100 BPM P-R Int : 154 ms QRS Dur : 182 ms QT Int : 436 ms P-R-T Axes : 049 110 -42 degrees QTc Int : 562 ms Atrial-sensed ventricular-paced rhythm Biventricular pacemaker detected Abnormal ECG When compared with ECG of 28-NOV-2021 11:20, Electronic ventricular pacemaker now present Confirmed by Hudson Hsu ([id number]) on 07/03/2022 3:39:06 PM Referred By: REFERRED SELF Confirmed By:Hudson Hsu
--- NOTE | 2022-07-03 16:27 | XCELERA ---
[id number]
[2022-07-03] MEDS: FUROSEMIDE 40 MG/4 ML VIAL IV SCH (18:12)
[2022-07-03] MEDS ORDERED: ALBUTEROL 0.083% NEBU SOLN 3 ML VIAL NEB PRN (18:43)
[2022-07-03] MEDS ORDERED: LANTUS PER UNIT CHARGE SQ SCH (21:00)
[2022-07-03] MEDS ORDERED: INFLUENZA VACCINE HIGH DOSE PF 65+ 0.7 ML SYR IM ONE (21:50)
[2022-07-03] MEDS: ASPIRIN 81 MG ECTAB PO SCH (22:28)
[2022-07-03] MEDS: ROSUVASTATIN CALCIUM 20 MG TAB PO SCH (22:28)
[2022-07-03] MEDS: LANTUS PER UNIT CHARGE SQ SCH (22:45)
[2022-07-04 06:19] LABS: Basophils # (auto) 0.03 K/uL (0-0.2); Basophils % (auto) 0.3 %; Eosinophils # (auto) 0.08 K/uL (0-0.50); Eosinophils % (auto) 0.8 %; Hematocrit (blood only) 36.8 % (34.1-44.9); Immature Granulocytes # (auto) 0.03 K/uL (0.00-0.02); Immature Granulocytes % (auto) 0.3 %; Lymphocytes % (auto) 8.7 %; Mean Corpuscular Hemoglobin 29.3 pg (25.0-34.0); Mean Corpuscular Hgb Conc 32.6 g/dL (32.0-36.0); Mean Platelet Volume 8.9 fL (9.4-12.3); Monocytes # (auto) 0.54 K/uL (0.24-0.82); Monocytes % (auto) 5.2 %; Neutrophils # (auto) 8.74 K/uL (1.4-6.5); Neutrophils % (auto) 84.7 %; Platelet Count 360 K/uL (130-400); RDW Coefficient of Variation 18.4 % (11.5-14.5); Red Blood Count 4.09 M/uL (3.93-5.22); White Blood Count 10.32 K/ul (4.8-10.8)
[2022-07-04 06:42] LABS: BUN Creatinine Ratio 14.5 (10-20); Calcium 9.1 mg/dl (8.5-10.1); Est GFR (African American) 59.3 ml/min; Est GFR (Non-African American) 51.2 ml/min; Magnesium 1.9 mg/dl (1.7-2.4); Potassium 3.8 mmol/L (3.5-5.1)
--- NOTE | 2022-07-04 09:02 | Cardiology Consultation ---
Date of Consultation July 04, 2022 Assessment & Plan (1) JACKSON (dyspnea on exertion): (2) Diastolic congestive heart failure, NYHA class 2: (3) Elevated troponin: (4) Essential hypertension: (5) CKD (chronic kidney disease): (6) Cardiac pacemaker: (7) Third degree heart block: (8) Abnormal stress test: Plan 1. Dyspnea on exertion: She has been having a lot of difficulty with dyspnea exertion for several months, until this presentation she did not appear to be in congestive heart failure and we had been adjusting her pacemaker to see whether it was related to rate response but that did not help. In addition we did a stress test which was abnormal and we had been contemplating catheterization although she has not been having exertional chest discomfort and stress tests in a paced rhythm can be problematic to interpret. At this point her severe dyspnea on exertion appears to be due to congestive heart failure and she feels better now. 2. Diastolic congestive heart failure: She evidently has diastolic heart failure with a preserved left ventricular ejection fraction. This may be multifactorial including aortic valve disease, hypertension and left ventricular hypertrophy as well as possibly a component due to ventricular pacing. I would diurese and hopefully this will not be a ongoing issue. We have not been terribly careful with fluid management or diuretic use up to this point and her weights have not been increasing, if anything they have been decreasing. Perhaps body mass loss with fluid replacement. 3. Elevated troponin: This is worrisome, her echocardiogram does not suggest myocardial injury as a cause of her recent heart failure and after her initial measurement I suspected it was due to demand ischemia although possibly with underlying coronary disease. That is still possible but with rising troponins now after admission I am concerned that we may be underestimating her coronary disease. I think she should have a catheterization, I had discussed that with her already and with the rising troponin I am more convinced that we should. We will consider doing that tomorrow. 4. Hypertension: Her blood pressure has been quite elevated, as is her pulse. She is on diltiazem but not on a beta-sonja. I did not want to add a beta- sonja yesterday with her heart failure but now with continued elevated blood pressure I think we should do that. I am going to add carvedilol. 5. Chronic kidney disease: Although she carries a diagnosis of chronic kidney disease her creatinine is generally not markedly elevated and has been normal this admission. 6. Pacemaker: Her pacemaker is functioning well, threshold is little bit high but well within the capability device and this is not an issue. I am a little disappointed that her QRS complex is wide but there is not much we can do about that and I do not know that that is contributing much to the situation. 7. Complete heart block: She is pacing all the time in the ventricle and as of yesterday did not have significant intrinsic conduction. She is not pacing the atrium due to the sinus tachycardia. 8. Abnormal stress test: She had a pharmacologic nuclear stress test as an outpatient suggesting ischemia, in the absence of symptoms it was not clear whether we should proceed with catheterization although she does have risk factors and may well have undetected coronary artery disease. At this point as noted above I think we should proceed to catheterization. 9. Aortic stenosis: Based on her echo from July 03, 2022 she has only mild valvular aortic stenosis although she also has moderate mitral regurgitation. This has not progressed and is not likely to contribute to her recent heart failure. History of Present Illness Reason for Consultation: Progressive shortness of breath Attending Physician: Panfilo Braun MD History of Present Illness This is a 71-year-old woman with a history of B-cell lymphoma for which she received chemotherapy as well as sarcoidosis which is followed by pulmonary and uterine cancer for which she has had a hysterectomy in 2005. She also has chronic kidney disease, diabetes, hypertension and dyslipidemia. She presented November 25, 2021 with complete heart block and a prior history of fatigue, weakness and exertional dyspnea. Medications were adjusted however she remained in complete heart block and therefore a dual-chamber pacemaker was implanted on November 28, 2021. An echocardiogram done prior to device implantation showed a mildly dilated left ventricle with normal left ventricular systolic function, mild aortic stenosis and mild to moderate mitral regurgitation. Another echocardiogram done April 28, 2022 shows low normal left ventricular systolic function (ejection fraction 50%) with mild aortic stenosis and moderate mitral regurgitation and was felt unchanged compared to the prior. She has had symptoms of dyspnea on exertion which we felt was due to the AV block, initially she had improvement following pacemaker implantation but then she had progressive shortness of breath. Pulmonary function tests were done April 23, 2022 which demonstrated mild reduction in total lung capacity with diminished diffusion capacity and no change with inhaled bronchodilators. Of note she did have COVID in February from which she has recovered substantially although perhaps it affected her lung function. Her device had been programmed to non-rate responsive dual-chamber mode at implant, her heart rate histograms suggested a somewhat blunted heart rate response with her sinus mechanism although it was not severely so. This could be aggravated by her medications which included diltiazem which could affect heart rate response. Other possibilities also exist, her left ventricular function does not seem to have changed, this could be deconditioning from having poor exercise ability prior to pacemaker implantation, or it could be due to coronary artery disease. I did adjust the pacemaker to add rate response on May 01, 2022 to see what effect these changes have on her symptoms. These changes have little effect. I therefore had a pharmacologic nuclear stress test performed. This was performed on June 02, 2022, the heart size appeared normal although the ejection fraction was reported as low (but echocardiography has not confirmed this) and myocardial perfusion showed mildly reduced uptake in the basal to mid inferior and basal to mid inferolateral mcdaniels which appeared to be reversible. There is also a fixed area in the mid to distal anteroseptum. No ischemic dilatation. I had considered catheterization but without anginal symptoms I had not done that as yet. She continued to have progressive dyspnea on exertion, to the point when she began to have shortness of breath at rest and came to the emergency room. In the emergency room she was found to be in congestive heart failure based on chest x-ray, echocardiography showed essentially normal left ventricular function with only mild aortic stenosis and moderate mitral regurgitation (unchanged) and pacemaker evaluation showed normal pacer function. She was in sinus tachycardia but not to the point where it should primarily cause congestive heart failure. She was admitted and diuresed. Her initial troponin was only in the 30s, however that has increased over 200 on subsequent measurements. She has had no chest discomfort throughout. Today she feels much better, she has not been very active here so it is difficult to tell if she still has shortness of breath. She has no chest discomfort, no palpitations despite her somewhat rapid heart rate and no lightheadedness or dizziness. Allergies Allergy/AdvReac Type Severity Reaction Status Date / Time cat dander Allergy Intermediate ITCHY Verified 06/21/22 11:27 EYES, SNEEZING, CONGESTION lisinopril Allergy Mild Cough Verified 06/21/22 11:27 Sulfa (Sulfonamide AdvReac Intermediate NAUSEA Verified 06/21/22 11:27 Antibiotics) codeine AdvReac Mild Vomiting Verified 06/21/22 11:27 Home Medications Medication Instructions Recorded Confirmed Type aspirin 81 mg tablet,delayed 81 mg PO HS 10/18/18 07/03/22 History release (Ecotrin Low Strength) polyethylene glycol 3350 17 17 g PO DAILY PRN Constipation 04/11/21 07/03/22 History gram/dose oral powder (Miralax) insulin glargine U-300 conc 300 75 unit subcut HS 01/11/22 07/03/22 History unit/mL (1.5 mL) subcutaneous pen (Toujeo SoloStar U-300 Insulin) diltiazem HCl 300 mg capsule,24 300 mg PO QAM 02/03/22 07/03/22 History hr,extended release conjugated estrogens 0.625 mg/gram See Rx Instructions .Route 04/12/22 07/03/22 Rx vaginal cream (Premarin) .COMPLEX #30 grams dulaglutide 1.5 mg/0.5 mL 1.5 mg (0.5 mL) subcut WK #2 mL 04/26/22 07/03/22 Rx subcutaneous pen injector (Trulicity) glipizide 5 mg tablet 5 mg PO QAM 05/01/22 07/03/22 History losartan 50 mg tablet 75 mg PO QAM 05/01/22 07/03/22 History metformin 1,000 mg tablet 1,000 mg PO Q12H #180 tabs 05/01/22 07/03/22 Rx rosuvastatin 20 mg tablet (Crestor) 20 mg PO HS #90 tabs 05/01/22 07/03/22 Rx pen needle, diabetic 31 gauge x #100 ea 05/15/22 06/21/22 Rx 3/16" (BD Ultra-Fine Mini Pen Needle) furosemide 20 mg tablet (Lasix) 20 mg PO DAILY #30 tabs 06/02/22 07/03/22 Rx Patient History Medical History Anemia Aortic stenosis MILD CALCIFIC AORTIC STENOSIS NOTED ON 2005 ECHO [facility]. ECHO DONE 10/22/18 SHOWED NO . Arthritis Chronic kidney disease, stage 3a CKD (chronic kidney disease) stage 3, GFR 30-59 ml/min Diabetes mellitus, type 2 Essential (primary) hypertension History of B-cell lymphoma TREATMENT FOR 1 YEAR *R-[facility] (LAST [place] 2018) Hyperlipidemia [facility] current use of insulin LVH (left ventricular hypertrophy) Mediastinal lymphadenopathy Morbid obesity Neuropathy Nonsustained ventricular tachycardia MAX (obstructive sleep apnea) USING CPAP HS Pacemaker INSERTED 11/28/21 FOR HEARTBLOCK>FOLLOWED BY DR. BRONSON *[employer]TRON[employer] DEVICE Personal history of malignant neoplasm of other parts of uterus SURGERY ONLY Port-A-Cath in place Sarcoidosis, lung Vitamin D deficiency Surgical History H/O breast biopsy BENIGN H/O colonoscopy H/O excision of mass LEFT NECK-DIAGNOSED WITH LYMPHOMA H/O total hysterectomy History of bronchoscopy History of cataract surgery RT/LEFT History of removal of Port-a-Cath Remove Access Port(Right) - Eddie Pineda DO, FACS [id number] History of tonsillectomy History of tooth extraction History of total knee arthroplasty RT/LEFT Family History Grandfather (Maternal) Family history of diabetes mellitus Family/Other Family history of diabetes mellitus Father Myocardial infarction Family history of esophageal cancer Other No family history of adverse response to anesthesia Denies family history of Ovarian cancer Prostate cancer Breast cancer Colorectal cancer Social History Smoking Status: Never smoker Second Hand Exposure: No; Do You Dip or Chew Tobacco: No; Tobacco Cessation Education Requested by Patient: No Hx Alcohol Use: Yes Alcohol type: wine Hx Substance Use: No Preferred Language: Hungarian Communication Ability: Effective Visual Impairment: No Limitations Hearing Ability: Normal Superintendent Division Required: No Beliefs That Will Affect Care: None marital status: Current Living Situation: Alone current occupational status: employed current occupation: [employer] Other Information That Helps Us Care for You: No Feels Safe at Home: Yes Safety Concerns: Feels Safe At This Time Childhood Exposure to Second-Hand Smoke: Yes Dental Care, Regularly: Yes Physical Activity Frequency: Does not Exercise Seatbelt Use: always Sunscreen Use: Yes Assistive Devices: Cane Physical Exam Physical Exam: Constitutional: Alert, cooperative and in no distress. HEENT: Unremarkable Neck: No jugular venous distention, carotid pulses are normal and equal bilaterally without bruits. Pulmonary: Clear to auscultation bilaterally. Cardiac: Regular somewhat rapid rhythm with a grade 2/6 crescendo decrescendo murmur at the base, no gallop or rub. Abdomen: Soft, nontender with normal bowel sounds. Extremities: No edema. Distal pulses intact. Neurologic: No focal findings. Gait is steady. Skin: The device site is well-healed without erythema, swelling or tenderness. No rash, ecchymoses or petechiae. Results & Data ([facility]) Vital Signs (Past 12 Hours) Vital Signs Temp Pulse Pulse Resp BP Pulse Ox O2 Del Method 07/04/22 08:09 37 C 105 H 20 154/97 H 98 Nasal Cannula 07/04/22 07:25 109 H 07/04/22 03:38 36.9 C 100 H 20 148/76 H 96 CPAP 07/04/22 02:57 25 H 95 07/04/22 01:29 107 H 22 166/111 H 95 CPAP 07/03/22 23:59 CPAP 07/03/22 23:58 102 H 07/03/22 21:00 105 H 07/03/22 23:12 100 H 23 95 07/03/22 21:26 37 C 104 H 22 159/104 H 94 Nasal Cannula O2 Flow Rate 07/04/22 08:09 6 07/04/22 07:25 07/04/22 03:38 07/04/22 02:57 4 07/04/22 01:29 07/03/22 23:59 07/03/22 23:58 07/03/22 21:00 07/03/22 23:12 4 07/03/22 21:26 3 Laboratory Results Cardiac Enzymes 07/03/22 07/03/22 07/04/22 Range/Units 08:50 18:04 00:18 AST 18 (13-39) U/L Troponin I High Sens 32.8 H 100.5 H* D 209.0 H* D (0-14) pg/ml 07/04/22 Range/Units 06:04 AST (13-39) U/L Troponin I High Sens 231.8 H* (0-14) pg/ml CBC 07/03/22 07/04/22 Range/Units 08:50 06:04 WBC 8.88 10.32 (4.8-10.8) K/ul RBC 3.96 4.09 (3.93-5.22) M/uL Hgb 11.5 L 12.0 (12.0-16.0) g/dl Hct 35.5 36.8 (34.1-44.9) % Plt Count 354 360 (130-400) K/uL Neut # (Auto) 7.44 H 8.74 H (1.4-6.5) K/uL Lymph # (Auto) 0.79 L 0.90 L (1.2-3.4) K/uL [place] # (Auto) 0.45 0.54 (0.24-0.82) K/uL Eos # (Auto) 0.14 0.08 (0-0.50) K/uL Baso # (Auto) 0.02 0.03 (0-0.2) K/uL Comprehensive Metabolic Panel 07/03/22 07/04/22 Range/Units 08:50 06:04 Sodium 139 139 (136-145) mmol/L Potassium 3.9 3.8 (3.5-5.1) mmol/L Chloride 104 102 (98-107) mmol/L Carbon Dioxide 25 29 (21-32) mmol/L BUN 15 16 (6-23) mg/dl Creatinine 1.09 1.10 (0.6-1.2) mg/dl Glucose 127 H 122 H (70-99(Fasting)) mg/dl Calcium 9.3 9.1 (8.5-10.1) mg/dl AST 18 (13-39) U/L ALT 13 (7-52) U/L Alkaline Phosphatase 53 (34-104) U/L Total Protein 7.4 (6.0-8.3) gm/dl Albumin 4.0 (3.4-5.0) gm/dl Intake and Output 07/03/22 07/04/22 07/04/22 22:59 06:59 14:59 Intake Total 800 / 1200 400 / 1200 Balance 800 / 1200 400 / 1200 Intake: Oral 800 / 1200 400 / 1200 Other: # Unmeasured Voids 3 2 Weight 111.8 kg 111.8 kg Weight Measurement Method Standing Scale Diagnostic Findings Telemetry: Sinus tachycardia, rate a little over 100 throughout. Ventricular paced rhythm due to atrial tracking. Pacemaker evaluation: I performed pacemaker interrogation in the emergency room yesterday. This included threshold tests which are not being conducted consistently automatically. The ventricular pacing threshold is slightly elevated (probably due to the location of the lead in the upper septum) however it is relatively stable and well within the capability of the device. No indication of lead abnormality, no arrhythmias identified. Electrocardiogram: Atrial sensed and ventricular paced throughout. Her QRS complex is wider than expected with high septal pacing. This cannot be read for myocardial injury. PG Care Time/CCT Total # of Minutes Spent Total Time Spent with Patient: Total time spent is greater than 50% in coordination of care (as documented) at patient's floor/unit and/or counseling patient: Coding Level of Care Code 87068 Initial Inpt Care Lvl 3 Diagnoses JACKSON (dyspnea on exertion) R06.09 Diastolic congestive heart failure, NYHA class 2 I50.31 Congestive heart failure chronicity: acute Elevated troponin R77.8 Essential hypertension I10 CKD (chronic kidney disease) N18.2 Chronic kidney disease stage: stage 2 (mild) Cardiac pacemaker Z95.0 Third degree heart block I44.2 Abnormal stress test R94.39 CPT Codes Dual Lead Pacemaker System - [id number] ([id number]) Time Spent (min) 75 Comment Pacemaker evaluation, review of records, discussion with consultants, formulating plan and (1) Diastolic congestive heart failure, NYHA class 2 Congestive heart failure chronicity: acute Qualified Code(s): I50.31 - Acute diastolic (congestive) heart failure (2) CKD (chronic kidney disease) Chronic kidney disease stage: stage 2 (mild) Qualified Code(s): N18.2 - Chronic kidney disease, stage 2 (mild)
[2022-07-04] MEDS: LOSARTAN POTASSIUM 25 MG TAB PO SCH (09:09)
[2022-07-04] MEDS: dilTIAZem HCL 300 MG CAPCR PO SCH (09:09)
[2022-07-04] MEDS: FUROSEMIDE 40 MG/4 ML VIAL IV SCH ×2 (09:09→17:32)
[2022-07-04] MEDS: ENOXAPARIN INJ 40 MG/0.4 ML SYR SQ SCH (09:10)
[2022-07-04] MEDS: INSULIN ASPART PER UNIT SC SCH ×4 (09:20→21:12)
[2022-07-04] MEDS: carvediloL 12.5 MG TAB PO SCH ×2 (09:37→20:59)
--- NOTE | 2022-07-04 16:32 | Hospitalist Progress Note ---
Date of Service July 04, 2022 Assessment & Plan (1) Diastolic congestive heart failure, NYHA class 2: Plan: Acute diastolic heart failure. Had previously been on Lasix 20 mg PO daily. Patient reports worsening dyspnea on exertion over last week which corresponded to school starting which always causes her to be much, much busier. - Responding well to Lasix 40 mg IV BID - Will give evening dose, then monitor Cr before giving AM dose given she will likely get a [facility] tomorrow. - Monitor I&Os, daily standing weights. (2) Elevated troponin: Plan: Troponin mildly elevated at 32. Repeats jumped to 100, then 200, & 280. - LHC as above (3) JACKSON (dyspnea on exertion): Plan: With acute hypoxic respiratory failure. Not on any home O2, requiring 2L at present. DDx includes CHF as above, as well as primary pulmonary issues such as restrictive lung disease 2/2 body habitus. She has known MAX requiring CPAP at night. - Plan as above (4) Aortic stenosis: Plan: Mild , EF 50% 04/28/2022. - Repeat echo stable this admission (5) Obstructive sleep apnea: Plan: - Continue CPAP at night. (6) CKD (chronic kidney disease) stage 3, GFR 30-59 ml/min: Plan: Cr 1.09, baseline. - Avoid nephrotoxins and renally dose medications as able. - With secondary anemia, Hgb 11.5 today, stable w/ baseline. - Follow (7) Diabetes mellitus, type II, insulin dependent: Plan: A1c in March-- 6%. - Hold metformin, Trulicity, glipizide. - Continue basale insulin--Toujeo 75 units HS. - Accuchekcs ACHS with SSI. (8) Hyperlipidemia: Plan: - Continue statin. (9) Status post placement of cardiac pacemaker: Plan: In November s/p 3rd degree AV block. Cardiology feel pacemaker is functioning well. (10) Essential hypertension: Plan: BP today is 100/65. - Continue Diltazem, losartan, furosemide. - Cardiology added carvedilol on 07/04 (11) Sarcoid: Plan: Stage 1, w/ mediastinal adenopathy and pulmonary nodules. Follows with pulmonary. - No present needs Plan CDS query: Morbid obesity with BMI 43.7 Admission and Anticipated Discharge Date Admission Date: July 03, 2022 Subjective Doing substantially better today. Breathing much more easily. Overall, feeling quite well actually. Minimal swelling in legs. Reports no fevers/chills, chest pain, abdominal pain, nausea, or vomiting. Physical Exam Constitutional: WD/WN, vitals as above + morbidly obese Eyes: EOM intact bilaterally; no conjunctival abnormality ENMT: external ear and nose normal, oropharynx normal Neck: trachea midline, no thyromegaly normal visual inspection Respiratory: normal respiratory effort, lungs clear to auscultation no respiratory distress Cardiovascular: RRR, no murmur, no edema Extremities: + edema (1+) Gastrointestinal (Abdomen): Inspection/Auscultation: abdomen normal to inspection; abdomen not distended Musculoskeletal: no cyanosis or clubbing, extremities motor strength 5/5 Skin: no rashes, warm and dry Neurologic: moves all extremities and awake Psychiatric: Orientation: alert, oriented to person and cooperative Results & Data Results & Data ([facility]) Vital Signs (Past 12 Hours) Vital Signs Temp Pulse Pulse Resp BP BP Pulse Ox 07/04/22 16:12 36.5 C 68 20 99/64 L 95 07/04/22 07:30 07/04/22 11:30 36.6 C 83 19 96/58 L 95 07/04/22 10:26 07/04/22 08:09 37 C 105 H 20 154/97 H 98 07/04/22 07:25 109 H Pulse Ox Pulse Ox Pulse Ox O2 Del Method O2 Flow Rate O2 Flow Rate O2 Flow Rate 07/04/22 16:12 Nasal Cannula 2 07/04/22 07:30 Nasal Cannula 2 07/04/22 11:30 Nasal Cannula 3 07/04/22 10:26 96 96 92 3 3 07/04/22 08:09 Nasal Cannula 6 07/04/22 07:25 O2 Flow Rate 07/04/22 16:12 07/04/22 07:30 07/04/22 11:30 07/04/22 10:26 0 07/04/22 08:09 07/04/22 07:25 PG Care Time/CCT Total # of Minutes Spent Total Time Spent with Patient: Total time spent is greater than 50% in coordination of care (as documented) at patient's floor/unit and/or counseling patient: Coding Level of Care Code 59776 Subseq Hosp Care Lvl 3 Diagnoses Diastolic congestive heart failure, NYHA class 2 I50.31 Congestive heart failure chronicity: acute Elevated troponin R77.8 JACKSON (dyspnea on exertion) R06.09 Aortic stenosis I35.0 Obstructive sleep apnea G47.33 CKD (chronic kidney disease) stage 3, GFR 30-59 ml/min N18.3 Diabetes mellitus, type II, insulin dependent E11.9; Z79.4 Hyperlipidemia E78.5 Status post placement of cardiac pacemaker Z95.0 Essential hypertension I10 Sarcoid D86.9 (1) Diastolic congestive heart failure, NYHA class 2 Congestive heart failure chronicity: acute Qualified Code(s): I50.31 - Acute diastolic (congestive) heart failure
[2022-07-04] MEDS: ROSUVASTATIN CALCIUM 20 MG TAB PO SCH (20:59)
[2022-07-04] MEDS: ASPIRIN 81 MG ECTAB PO SCH (20:59)
[2022-07-04] MEDS: LANTUS PER UNIT CHARGE SQ SCH (21:00)
[2022-07-05 07:58] LABS: Hematocrit (blood only) 33.8 % (34.1-44.9); Mean Corpuscular Hemoglobin 29.3 pg (25.0-34.0); Mean Corpuscular Hgb Conc 32.5 g/dL (32.0-36.0); Mean Corpuscular Volume 90.1 fL (80.0-100.0); Mean Platelet Volume 9.5 fL (9.4-12.3); Platelet Count 360 K/uL (130-400); RDW Coefficient of Variation 18.5 % (11.5-14.5); RDW Standard Deviation 60.7 fL (36.4-46.3); Red Blood Count 3.75 M/uL (3.93-5.22); White Blood Count 7.67 K/ul (4.8-10.8)
[2022-07-05 08:23] LABS: BUN Creatinine Ratio 19.1 (10-20); Calcium 9.1 mg/dl (8.5-10.1); Creatinine Clr Calc Pharmacy 46.9 ml/min; Est GFR (African American) 45.9 ml/min; Est GFR (Non-African American) 39.6 ml/min; Magnesium 2.1 mg/dl (1.7-2.4); Potassium 3.7 mmol/L (3.5-5.1)
[2022-07-05] MEDS: LOSARTAN POTASSIUM 25 MG TAB PO SCH (09:07)
[2022-07-05] MEDS: dilTIAZem HCL 300 MG CAPCR PO SCH (09:07)
[2022-07-05] MEDS: ENOXAPARIN INJ 40 MG/0.4 ML SYR SQ SCH (09:07)
[2022-07-05] MEDS: INSULIN ASPART PER UNIT SC SCH ×3 (09:09→17:53)
[2022-07-05] MEDS: carvediloL 12.5 MG TAB PO SCH (09:10)
--- NOTE | 2022-07-05 09:57 | Cardiology Progress Note ---
Date of Service July 05, 2022 Assessment & Plan (1) JACKSON (dyspnea on exertion): (2) Diastolic congestive heart failure, NYHA class 2: (3) Elevated troponin: (4) Essential hypertension: (5) CKD (chronic kidney disease): (6) Cardiac pacemaker: (7) Third degree heart block: (8) Abnormal stress test: Plan 1. Dyspnea on exertion: She has been having a lot of difficulty with dyspnea exertion for several months, until this presentation she did not appear to be in congestive heart failure and we had been adjusting her pacemaker to see whether it was related to rate response but that did not help. In addition we did a stress test which was abnormal and we had been contemplating catheterization although she has not been having exertional chest discomfort and stress tests in a paced rhythm can be problematic to interpret. In addition cardiac sarcoid can create abnormalities in nuclear stress test. At this point her severe dyspnea on exertion appears to be due to congestive heart failure and she has improved dramatically with diuresis. 2. Diastolic congestive heart failure: She evidently has diastolic heart failure with a preserved left ventricular ejection fraction. This may be multifactorial including aortic valve disease, hypertension and left ventricular hypertrophy as well as possibly a component due to ventricular pacing. We may have been neglecting the role of sarcoid, she may have cardiac sarcoid which may be more of an issue than we had considered in the past since she does not have much difficulty with pulmonary sarcoid. We may need to investigate this further, possibly with an MRI. I have seen rapid progression of cardiomyopathy with ventricular pacing and another patient who had undiagnosed sarcoid at the time of pacemaker implantation. That could suggest sarcoid is more of an issue than we realize. A cardiac MRI in the future should probably be performed. I believe that can be done locally. 3. Elevated troponin: This is worrisome, her echocardiogram does not suggest myocardial injury as a cause of her recent heart failure and after her initial measurement I suspected it was due to demand ischemia although possibly with underlying coronary disease. That is still possible but with rising troponins after admission I am concerned that we may be underestimating her coronary disease. I think she should have a catheterization, I had discussed that with her already and with the rising troponin I am more convinced that we should. That will be done today. 4. Hypertension: Her blood pressure and heart rate are much better, I am going to continue her current dose of carvedilol. 5. Chronic kidney disease: Although she carries a diagnosis of chronic kidney disease her creatinine is generally not markedly elevated and had been normal this admission, rising slightly now probably due to diuresis. I would not diurese further. 6. Pacemaker: Her pacemaker is functioning well, her threshold is little bit high but well within the capability device and this is not an issue. I am a little disappointed that her QRS complex is wide but there is not much we can do about that other than upgrade to a biventricular unit which I would not do at this time but may be we will need to in the future. The elevated threshold, wide QRS complex despite good lead placement and development of congestive heart failure may all go along with sarcoid. 7. Complete heart block: She is pacing all the time in the ventricle and on this admission did not have significant intrinsic conduction. She is not pacing the atrium which is appropriate. 8. Abnormal stress test: She had a pharmacologic nuclear stress test as an outpatient suggesting ischemia, in the absence of symptoms it was not clear whether we should proceed with catheterization although she does have risk factors and may well have undetected coronary artery disease. At this point as noted above I think we should proceed to catheterization. If the arteries are not contributory to the stress test findings perhaps that is due to sarcoid. 9. Aortic stenosis: Based on her echo from July 03, 2022 she has only mild valvular aortic stenosis although she also has moderate mitral regurgitation. This has not progressed and is not likely to contribute to her recent heart failure. Admission and Anticipated Discharge Date Admission Date: July 03, 2022 Subjective She is feeling well today, considerably improved compared to preadmission. I discussed fluid and salt intake in detail, although she does not keep track of either she does try to drink a lot of fluids because of her kidney issue, Physical Exam Physical Exam: Constitutional: Alert, cooperative and in no distress. HEENT: Unremarkable Neck: No jugular venous distention, carotid pulses are normal and equal bilaterally without bruits. Pulmonary: Clear to auscultation bilaterally. Cardiac: Regular rhythm with a grade 2/6 crescendo decrescendo murmur at the base, no gallop or rub. Abdomen: Soft, nontender with normal bowel sounds. Extremities: No edema. Distal pulses intact. Neurologic: No focal findings. Gait is steady. Skin: The device site is well-healed without erythema, swelling or tenderness. No rash, ecchymoses or petechiae. Results & Data ([facility]) Vital Signs (Past 12 Hours) Vital Signs Temp Pulse Pulse Resp BP BP Pulse Ox 07/05/22 09:00 07/05/22 09:00 77 16 109/64 96 07/05/22 08:01 36.5 C 72 18 122/64 94 07/05/22 07:17 64 07/05/22 03:10 78 18 94 07/05/22 03:21 36.6 C 74 18 102/64 93 07/04/22 23:45 81 07/04/22 23:43 07/04/22 22:35 83 17 95 07/04/22 23:00 37.0 C 78 18 130/69 93 O2 Del Method O2 Flow Rate 07/05/22 09:00 Room Air 07/05/22 09:00 Room Air 07/05/22 08:01 Room Air 07/05/22 07:17 07/05/22 03:10 2 07/05/22 03:21 CPAP 2 07/04/22 23:45 07/04/22 23:43 Nasal Cannula 1 07/04/22 22:35 2 07/04/22 23:00 Nasal Cannula 2 Laboratory Results CBC 07/05/22 Range/Units 07:02 WBC 7.67 (4.8-10.8) K/ul RBC 3.75 L (3.93-5.22) M/uL Hgb 11.0 L (12.0-16.0) g/dl Hct 33.8 L (34.1-44.9) % Plt Count 360 (130-400) K/uL Comprehensive Metabolic Panel 07/05/22 Range/Units 07:02 Sodium 138 (136-145) mmol/L Potassium 3.7 (3.5-5.1) mmol/L Chloride 100 (98-107) mmol/L Carbon Dioxide 30 (21-32) mmol/L BUN 26 H (6-23) mg/dl Creatinine 1.36 H (0.6-1.2) mg/dl Glucose 94 (70-99(Fasting)) mg/dl Calcium 9.1 (8.5-10.1) mg/dl Intake and Output 07/04/22 07/05/22 07/05/22 22:59 06:59 14:59 Intake Total 350 / 625 Output Total 1300 / 2101 Balance -950 / -1476 Intake: Oral 350 / 625 Output: Urine 1300 / 2100 Other: Other Intake Source NPO Weight 111.6 kg Weight Measurement Method Standing Scale Diagnostic Findings Telemetry: Sinus rhythm with ventricular pacing, the heart rate has decreased nicely over the last day. PG Care Time/CCT Total # of Minutes Spent Total Time Spent with Patient: Total time spent is greater than 50% in coordination of care (as documented) at patient's floor/unit and/or counseling patient: Coding Level of Care Code 37138 Subseq Hosp Care Lvl 3 Diagnoses JACKSON (dyspnea on exertion) R06.09 Diastolic congestive heart failure, NYHA class 2 I50.31 Congestive heart failure chronicity: acute Elevated troponin R77.8 Essential hypertension I10 CKD (chronic kidney disease) N18.2 Chronic kidney disease stage: stage 2 (mild) Cardiac pacemaker Z95.0 Third degree heart block I44.2 Abnormal stress test R94.39 (1) Diastolic congestive heart failure, NYHA class 2 Congestive heart failure chronicity: acute Qualified Code(s): I50.31 - Acute diastolic (congestive) heart failure (2) CKD (chronic kidney disease) Chronic kidney disease stage: stage 2 (mild) Qualified Code(s): N18.2 - Chronic kidney disease, stage 2 (mild)
[2022-07-05] MEDS ORDERED: niCARdipine HCL INJ 2.5 MG/ML 10 ML AMP ONE (11:30)
[2022-07-05] MEDS ORDERED: HEPARIN (PORCINE) 1000 UNIT/ML 10 ML (CATH LAB USE ONLY) ONE (11:30)
[2022-07-05] MEDS ORDERED: fentaNYL citrate 100 MCG/2 ML VIAL ONE (11:30)
[2022-07-05] MEDS ORDERED: NITROGLYCERIN/D5W 100MCG/ML 20ML SYR ONE (11:31)
[2022-07-05] MEDS ORDERED: MIDAZOLAM HCL 1 MG/ML 2ML VIAL ONE (11:31)
--- NOTE | 2022-07-05 12:10 | Pharmacy Report ---
Pharmacy Glycemic Short Note 2 - Date of Service July 05, 2022 - Glycemic Short BSG Results (Last 24 hours): 07/04/22 07/04/22 07/05/22 16:30 20:32 07:02 Glucose 94 POC Glucose 149 H 113 H 07/05/22 07/05/22 07:37 11:28 Glucose POC Glucose 96 96 OUTPATIENT ANTIDIABETIC REGIMEN: * trulicity, glipizide, toujeo 75 units qpm, metformin * 6% - march 2022 per notes ASSESSMENT: 07/05 * Patient received total of 46 units of insulin yesterday, of which 30 units were basal insulin * Fasting BSG 94 mg/dL - possible cardiac catheterization today, NPO this morning. Lunch BSG at 96 mg/dL. May loosen CR slightly today for when diet is resumed since BSGs on lower end of goal * Had reduced basal insulin last evening about 25% - fasting this morning lower 90s. Anticipate patient needing closer to 25-30 units of basal when eating * Will reduce evening basal scale as unclear when diet to be resumed 07/03 * 71 year old female admitted with shortness of breath. Type 2 diabetic, pharmacy consulted for glycemic management. Patient on toujeo 75 units hs, last dose given last evening prior to admission. Fasting BSG 127 mg/dL - typically do adjust initial Lantus dose ~20% when converting between toujeo and Lantus. Anticipate patient needing less as likely large basal dose at home covering some prandial needs too. Patient is known to us from previous admission 11/25/21 where 40-50 units of basal insulin seemed appropriate. Will trial 40 units of lantus for tonight and use stress of 2 dosing for novolog for now PLAN FOR INPATIENT GLYCEMIC CONTROL: * Hold outpatient oral diabetes medications * Basal insulin * Lantus 20-25 units hs * Bolus insulin * NovoLog per scale ACHS or Q6hrs while NPO * Goal Range: Low 110 mg/dL - High 140 mg/dL * Correction Factor: 20 mg/dL/unit * Nutritional / Prandial insulin per carb ratio of 1 unit per 10 grams CHO consumed
--- NOTE | 2022-07-05 12:20 | Pre Anesthesia Assessment ---
Date of Service July 05, 2022 Pre Sedation Assessment Vital Signs Temp Pulse Pulse Pulse Resp BP BP 07/05/22 10:15 98.2 F 80 20 105/78 07/05/22 09:00 07/05/22 09:00 77 16 109/64 07/05/22 08:01 97.7 F 72 18 122/64 07/05/22 07:17 64 07/05/22 03:10 78 18 07/05/22 03:21 97.9 F 74 18 102/64 07/04/22 23:45 81 07/04/22 23:43 07/04/22 22:35 83 17 07/04/22 23:00 98.6 F 78 18 130/69 07/04/22 19:00 97.9 F 66 18 123/77 07/04/22 16:12 97.7 F 68 20 99/64 L Pulse Ox O2 Del Method O2 Flow Rate 07/05/22 10:15 86 L Room Air 07/05/22 09:00 Room Air 07/05/22 09:00 96 Room Air 07/05/22 08:01 94 Room Air 07/05/22 07:17 07/05/22 03:10 94 2 07/05/22 03:21 93 CPAP 2 07/04/22 23:45 07/04/22 23:43 Nasal Cannula 1 07/04/22 22:35 95 2 07/04/22 23:00 93 Nasal Cannula 2 07/04/22 19:00 95 Nasal Cannula 2 07/04/22 16:12 95 Nasal Cannula 2 Cardiovascular RRR, no murmur, no edema Respiratory normal respiratory effort, lungs clear to auscultation Pre-Sedation Airway Assessment Smoking Status: Never smoker Hx Sleep Apnea: No Hx Difficult Intubation: No Short, Thick Neck: No Thyromental Distance: > or= 3.5 Finger Breadths Oral Cavity: + WNL Mallampati Class: III ASA: ASA3 NPO Status Date of Last Intake of Fluids: 07/05/22 Time of Last Intake of Fluids: 07:00 Date of Last Intake of Solid Food: 07/04/22 Time of Last Intake of Solid Foods: 18:00 Procedure Planning Contraindications for Sedation: none Current Medications Reviewed: Yes Notes The planned sedation has been discussed with the patient. Informed Consent was obtained. I have identified the patient, determined the appropriateness of sedation and have assessed the patient immediately prior to the procedure. All medicine(s) and interventions are by my order.
[2022-07-05] MEDS ORDERED: WATER, STERILE FOR INJ 10 ML VIAL ONE (12:43)
--- NOTE | 2022-07-05 12:59 | Post Anesthesia Assessment ---
Date of Service July 05, 2022 Post Sedation Assessment Vital Signs Temp Pulse Pulse Pulse Resp BP BP 07/05/22 12:53 61 17 122/78 07/05/22 10:15 98.2 F 80 20 105/78 07/05/22 09:00 07/05/22 09:00 77 16 109/64 07/05/22 08:01 97.7 F 72 18 122/64 07/05/22 07:17 64 07/05/22 03:10 78 18 07/05/22 03:21 97.9 F 74 18 102/64 07/04/22 23:45 81 07/04/22 23:43 07/04/22 22:35 83 17 07/04/22 23:00 98.6 F 78 18 130/69 07/04/22 19:00 97.9 F 66 18 123/77 07/04/22 16:12 97.7 F 68 20 99/64 L Pulse Ox O2 Del Method O2 Flow Rate 07/05/22 12:53 93 Room Air 07/05/22 10:15 86 L Room Air 07/05/22 09:00 Room Air 07/05/22 09:00 96 Room Air 07/05/22 08:01 94 Room Air 07/05/22 07:17 07/05/22 03:10 94 2 07/05/22 03:21 93 CPAP 2 07/04/22 23:45 07/04/22 23:43 Nasal Cannula 1 07/04/22 22:35 95 2 07/04/22 23:00 93 Nasal Cannula 2 07/04/22 19:00 95 Nasal Cannula 2 07/04/22 16:12 95 Nasal Cannula 2 Recovery Score Activity: Moves 4 extremities Respiration: Deep Breath/Cough Circulation: +/-20% PreAnes Value Consciousness: Fully Awake Oxygen Saturation: > 92% On Room Air Post Anesthesia Score: 10 Discharge Sedation Level of Care: Fast Track Phase II Post Sedation Plan On clinical assessment, the patient appears to have tolerated the sedation without complications. Patient is recovering as anticipated. Patient will continue to be monitored by nursing and may be discharged when sed ation discharge criteria are met per below protocol. Upon Completions of procedure up to 15 minutes continue every 5 minute vital signs and the P.A.R. score; then discharge to a Phase I or Fast Track to Phase II per the following guidelines: * Discharge Patient to appropriate Phase II area if PAR is 8 or greater or return to pre- procedure baseline. The post - procedure orders will be as directed. * If PAR score is less than 8 or not return to pre-procedure baseline then patient will follow Phase I monitoring till PAR is reached for Phase II. The Phase I may be done in procedure room or may call to secure a Phase I area. * If naloxone or flumazenil are used for reversal, hold in Phase I for continued monitoring from when last reversal dose was given for a minimum of 60 minutes or longer pending the nurse and/or physician discretion of patient condition before discharge to Phase II. Please call the Sedation Physician to re-evaluate and complete post-note for discharge to Phase II area. Do NOT discharge from procedure sedation or Phase 1 until post- sedation evaluation note is complete by procedure /sedation MD Sedation Discharge Instructions to be given to the patient at discharge to home.
--- NOTE | 2022-07-05 13:16 | Cardiac Catheterization ---
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 Clinical evaluation leading to the procedure CAD Presenation: Non STEMI Anginal Classification: CCS IV Diagnostic Physicians Name: Gregory Meyers MD Closure Device Recommendations: Medical Therapy and/or Counseling Cardiac Cath Procedure Full Procedure Date July 05, 2022 Pre-Procedure Diagnosis Pre-Procedure Diagnosis: Non STEMI and CHF AUC Score AUC Score: 7 Post-Procedure Diagnosis Post-Procedure Diagnosis: Severe CAD and Elevated Intracardiac Pressures Procedure(s) Performed Procedure(s) Performed: Coronary Angiography and Left Heart Cath Outreach Worker Gregory Meyers MD Side Seam Machine Operator(s) Icebox Worker Estimated Blood Loss Estimated Blood Loss: 10 Medication(s) Medication(s): Fentanyl, Heparin, Lidocaine 1%, Nicardipine, Nitroglycerin and Versed Summary of Findings Indication: Dyspnea on exertion, elevated troponin, acute diastolic heart failure Access: 6 Fr right radial artery Catheters: Crowder, JL 4 Findings: LM -long vessel, normal caliber, mildly calcified, no CV disease LAD -large caliber, calcified proximally with 30 to 40% disease, mid and distal vessel without significant disease and wraps around apex. Small high D1 with mild diffuse proximal disease. Ramusmedium caliber, tortuous with 40 to 50% proximal stenosis remainder of vessel without disease. Circumflex -small AV groove vessel without disease. RCA -dominant, large caliber, heavily calcified vessel. 90% proximal stenosis. 99%/subtotal mid RCA occlusion. Left to right collaterals and PDA fills retrograde with competitive flow in distal RCA. LVEDP -21 Arterial Closure: TR band Summary: 1. Severe single vessel coronary artery disease -Heavily calcified, subtotally occluded mid RCA with [id number] collaterals 30-40% calcified proximal LAD 40-50% proximal ramus 2. Elevated intracardiac filling pressure (LVEDP 21) Recommendations: Maximize antianginal therapy for RCA subtotal occlusion. If refractory symptoms in the future ALCOHOLIC COUNSELOR PCI at tertiary center could be considered. Continued diuresis per primary team, Dr. Polo Hemodynamics Rest Ao:: 107/55/77 Final Ao: 114/59/80 LV: 120/21 Recommendations Recommendations: Medical Therapy and/or Counseling Specimens Specimens: None Radiation Exposure (mGy) 1074 Contrast (mls) 60 Anesthesia Moderate [id number] Procedural Complication(s) None Disposition PCU I attest to the content of the Intraoperative Record and any orders documented therein. Any exceptions are noted below. [facility] Card Cath Procedure Codes Cardiac Catheterization Procedure 1: Cardiovascular Cath Procedures: 87395 Coronaries and LHC (+/-LV) Moderate Sedation Procedure 1: Sedation/Anesthesia: 17845 Mod Sedation by the same physician;Init15 Min Child Age 5 & Up PG Care Time/CCT Total # of Minutes Spent Total Time Spent with Patient: Total time spent is greater than 50% in coordination of care (as documented) at patient's floor/unit and/or counseling patient:
--- NOTE | 2022-07-05 14:45 | Electrocardiogram Report ---
Test Reason : Blood Pressure : / mmHG Vent. Rate : 061 BPM Atrial Rate : 061 BPM P-R Int : 186 ms QRS Dur : 192 ms QT Int : 510 ms P-R-T Axes : 070 106 -74 degrees QTc Int : 513 ms AV dual-paced rhythm Abnormal ECG When compared with ECG of 03-JUL-2022 08:38, Vent. rate has decreased BY 39 BPM Confirmed by Hudson Hsu ([id number]) on 07/05/2022 2:44:46 PM Referred By: REFERRED SELF Confirmed By:Hudson Hsu
--- NOTE | 2022-07-05 16:39 | Discharge Summary ---
Date of Service July 05, 2022 Admission HPI Per Admitting Provider Tiffani Hawk is a 71-year-old female with past medical history significant for aortic stenosis, LVH, CKD, hypertension, DM2, MAX, sarcoidosis who is presenting today with shortness of breath. She notes 2 weeks ago that she was more winded with walking and is also waking up in the middle of the night short of breath despite using CPAP. It is difficult for her to lay flat, she is significantly winded after walking several steps in her home. She was started on 20 mg of Lasix once daily 2 weeks ago, however without any alleviation. She has a chronic dry cough, but denies fever chills, body aches, sinus congestion, and chest pain. Her base weight is 250 pounds, she weighed 254 pounds at her most recent office visit. She has mild bilateral lower extremity swelling which she states is not far off for baseline. She is tachypneic and tachycardic on exam wearing 2L NC and using respiratory muscles to breathe. She was transitioned to CPAP and now breathing much more comfortably. Labs largely unrevealing, she has a stable anemia, D-dimer mildly elevated 570, but CT without evidence of PE. It does show cardiomegaly with pulmonary edema and finding suggestive of pulmonary arterial hypertension with R >L pleural effusions with bibasilar consolidation. There is also a stable 6 mm solid nodule in the right middle lobe. Troponin is mildly elevated at 32. Renal function at baseline. Electrolytes within normal limits, no anion gap. COVID negative. Principal Diagnosis Acute diastolic heart failure Coronary artery disease Discharge Exam Constitutional WD/WN, vitals as above + morbidly obese Eyes EOM intact bilaterally; no conjunctival abnormality ENMT external ear and nose normal, oropharynx normal Neck trachea midline, no thyromegaly normal visual inspection Respiratory normal respiratory effort, lungs clear to auscultation no respiratory distress Cardiovascular RRR, no murmur, no edema Extremities: + edema (1+) Gastrointestinal (Abdomen) Inspection/Auscultation: abdomen normal to inspection; abdomen not distended Musculoskeletal no cyanosis or clubbing, extremities motor strength 5/5 Skin no rashes, warm and dry Neurologic moves all extremities and awake Psychiatric Orientation: alert, oriented to person and cooperative Discharge Data Allergies Allergy/AdvReac Type Severity Reaction Status Date / Time cat dander Allergy Intermediate ITCHY Verified 09/28/22 11:27 EYES, SNEEZING, CONGESTION lisinopril Allergy Mild Cough Verified 06/21/22 11:27 Sulfa (Sulfonamide AdvReac Intermediate NAUSEA Verified 06/21/22 11:27 Antibiotics) codeine AdvReac Mild Vomiting Verified 06/21/22 11:27 Consultations 07/03/22 10:40 ED Decision to Admit Stat 07/04/22 04:35 Consult Cardiology Routine Procedures Performed Operation Date: 07/05/22 10:30 Actual Procedures p Cineradiography w/Routine Exam - Ag Meyers MD s Cath, Left with Cors and Vent - Ag Meyers MD Ordered Studies 07/03/22 09:29 CT angio chest PE protocol Stat 07/05/22 12:14 CL Cath Imgs for PACS use only Stat Hospital Course (1) Diastolic congestive heart failure, NYHA class 2: Acute diastolic heart failure. Had previously been on Lasix 20 mg PO daily. Patient reported worsening dyspnea on exertion over last week which corresponded to school starting which always causes her to be much, much busier. - Responded well to Lasix 40 mg IV BID -> Discharged on Lasix 40 mg PO daily. Usual CHF discussion with daily weights, stable salt intake. Added Coreg per Dr. Polo. Per Dr. Polo, some concern for cardiac sarcoid. Will get cardiac MR. (2) Elevated troponin: Troponin mildly elevated at 32. Repeats jumped to 100, then 200, & 280. - LHC on 07/05 showed chronically occluded RCA. Diffuse, mild disease otherwise. Continue ASA, beta-sonja, statin as above. F/u with Dr. Polo. (3) JACKSON (dyspnea on exertion): With acute hypoxic respiratory failure. Not on any home O2, back to room air on discharge. DDx includes CHF as above, as well as primary pulmonary issues such as restrictive lung disease 2/2 body habitus. She has known MAX requiring CPAP at night. - Plan as above (4) Aortic stenosis: Mild , EF 50% 04/28/2022. - Repeat echo stable this admission (5) Obstructive sleep apnea: - Continue CPAP at night. (6) CKD (chronic kidney disease) stage 3, GFR 30-59 ml/min: Cr 1.09, baseline. - Avoid nephrotoxins and renally dose medications as able. - With secondary anemia, Hgb 11.5 today, stable w/ baseline. - Follow (7) Diabetes mellitus, type II, insulin dependent: A1c in March-- 6%. - Hold metformin, Trulicity, glipizide. - Continue basale insulin--Toujeo 75 units HS. - Accuchekcs ACHS with SSI. (8) Hyperlipidemia: - Continue statin. (9) Status post placement of cardiac pacemaker: In November s/p 3rd degree AV block. Cardiology feel pacemaker is functioning well. (10) Essential hypertension: BP today is 145/75. - Continue Diltazem, losartan, furosemide. - Cardiology added carvedilol on 07/04 -> Discharged on 6.25 mg PO BID. Titrate per cardiology. (11) Sarcoid: Stage 1, w/ mediastinal adenopathy and pulmonary nodules. Follows with pulmonary. - No present needs, though as above, some concern for cardiac sarcoid. Cardiology will plan outpatient cardiac MR. Plan CDS query: Morbid obesity with BMI 43.7 Total Time Total Time Spent Total Time Spent (In Minutes): 35 Discharge Plan Discharge Items Patient Disposition: Home - Self-Care Reason For Visit: DYSPNEA Discharge Diagnosis: Congestive heart failure Coronary artery disease Activity: Resume your previous activity Lifting: No more than 5 pounds Lifting Comment: With right hand Non-emergency contact: Primary Care Provider and Guidance Adviser Call non-emergency contact if: your pain is not controlled Follow-up/Referrals: Lane Polo MD [Physician] - 07/12/22 3:00 pm (Please follow up with Dr. Polo in a week.) Nikki Tom MD [Primary Care Provider] - Diet: Heart Healthy and Low Sodium (2gm) Addtl Attending Provider Instructions: Ms. Hawk, You were admitted to the hospital with trouble breathing that we believe was due to congestive heart failure. We used a higher dose of IV Lasix to help get the fluid off, and you are definitely breathing more comfortably. We did a heart cath today that showed a long-term blocked blood vessel in the heart, but we will optimize your medications and you do not need a stent. As we discussed, weigh yourself every day and be sure that your weight is not going up. Please keep track of this, and if you see you are gaining weight, please call Dr. Polo's office right away. No lifting more than 5 lbs with your right hand until Dr. Polo gives you the approval on your next office visit. Pending Studies at Discharge: No Stand-Alone Forms: My [facility] Credii, Smoking Cessation Medications and DC Order Prescriptions: New furosemide 40 mg tablet 40 mg PO DAILY Qty: 30 0RF carvedilol 6.25 mg tablet 6.25 mg PO BID Qty: 60 0RF Rx Instructions: must administer with a meal/food Continued Premarin 0.625 mg/gram cream See Rx Instructions .ROUTE .COMPLEX Qty: 30 0RF Dose Instruction: INSERT 1/2 GRAM INTRAVAGINALLY ONCE DAILY FOR 2 WEEKS THEN INSERT 1/2 GRAM THREE TIMES WEEKLY; OFF FOR 7 DAYS THEN REPEAT Rx Instructions: INSERT 1/2 GRAM INTRAVAGINALLY ONCE DAILY FOR 2 WEEKS THEN INSERT 1/2 GRAM THREE TIMES WEEKLY; OFF FOR 7 DAYS THEN REPEAT Trulicity 1.5 mg/0.5 mL pen injector 1.5 mg SQ WK Qty: 2 5RF Rx Instructions: TAKES ON FRIDAYS. rosuvastatin [Crestor] 20 mg tablet 20 mg PO HS Qty: 90 1RF metformin 1,000 mg tablet 1,000 mg PO Q12H Qty: 180 1RF (DME) pen needle, diabetic [BD Ultra-Fine Mini Pen Needle] 31 gauge x 3/16" needle See Dose Instructions .ROUTE .MEDSUPPLY Qty: 100 4RF Dose Instruction: As directed Rx Instructions: Use as directed Lorenzo Bates U-300 Insulin 300 unit/mL (1.5 mL) insulin pen 75 unit SUBCUT HS glipizide 5 mg tablet 5 mg PO QAM polyethylene glycol 3350 [Miralax] 17 gram/dose powder 17 g PO DAILY PRN (Reason: Constipation) aspirin [Ecotrin Low Strength] 81 mg Tablet,Delayed Release (Dr/Ec) 81 mg PO HS Rx Instructions: on hold for 5 days PER PT PER SURGEON (NOT SURE WHEN THIS WAS WRITTEN). diltiazem HCl 300 mg capsule,extended release 24 hr 300 mg PO QAM losartan 50 mg tablet 75 mg PO QAM Discontinued furosemide [Lasix] 20 mg tablet 20 mg PO DAILY Qty: 30 2RF Discharge Orders: Discharge Order (Routine); Ordered 07/05/22 Ordered By: Panfilo Braun Admission Data Admit Date/Time: 07/03/22 11:25 Attending Provider: Panfilo Braun Admit Provider: Austin Adler Primary Care Provider: Nikki Tom Other Providers: Austin Adler ; Dashawn Lopez Coding Level of Care Code D/C DAY MANAGEMENT >30 MINS Diagnoses Diastolic congestive heart failure, NYHA class 2 I50.31 Congestive heart failure chronicity: acute Elevated troponin R77.8 JACKSON (dyspnea on exertion) R06.09 Aortic stenosis I35.0 Obstructive sleep apnea G47.33 CKD (chronic kidney disease) stage 3, GFR 30-59 ml/min N18.3 Diabetes mellitus, type II, insulin dependent E11.9; Z79.4 Hyperlipidemia E78.5 Status post placement of cardiac pacemaker Z95.0 Essential hypertension I10 Sarcoid D86.9
== END 2022-07-05 18:15 | disposition home or self-care (01) | DRG 286 ==
LOC: ED 08:09 → EDINP 11:25 → SUATTDRO 11:25 → 2W 14:24 → 4W 07-05 13:43
DX: I25.10 Atherosclerotic heart disease of native coronary artery without angina pectoris; E11.22 Type 2 diabetes mellitus with diabetic chronic kidney disease; Z95.0 Presence of cardiac pacemaker; Z91.048 Other nonmedicinal substance allergy status; E78.5 Hyperlipidemia, unspecified; Z79.84 Long term (current) use of oral hypoglycemic drugs; R77.8 Other specified abnormalities of plasma proteins; R79.1 Abnormal coagulation profile; I13.0 Hypertensive heart and chronic kidney disease with heart failure and stage 1 through stage 4 chronic kidney disease, or unspecified chronic kidney disease; D86.2 Sarcoidosis of lung with sarcoidosis of lymph nodes; G47.33 Obstructive sleep apnea (adult) (pediatric); Z88.2 Allergy status to sulfonamides; Z86.79 Personal history of other diseases of the circulatory system; Z88.5 Allergy status to narcotic agent; Z79.890 Hormone replacement therapy; I35.0 Nonrheumatic aortic (valve) stenosis; N18.31 Chronic kidney disease, stage 3a; Z88.8 Allergy status to other drugs, medicaments and biological substances; I34.0 Nonrheumatic mitral (valve) insufficiency; Z79.4 Long term (current) use of insulin; R94.39 Abnormal result of other cardiovascular function study; Z79.899 Other long term (current) drug therapy; J96.00 Acute respiratory failure, unspecified whether with hypoxia or hypercapnia; I50.31 Acute diastolic (congestive) heart failure; Z79.82 Long term (current) use of aspirin

== ENCOUNTER 2022-12-04 06:48 | Observation (INO) ==
[2022-12-04] MEDS ORDERED: WATER, STERILE FOR INJ 10 ML VIAL ONE (06:57)
[2022-12-04] MEDS ORDERED: VANCOMYCIN HCL 1000MG/20ML VIAL ONE (06:57)
[2022-12-04] MEDS ORDERED: LIDOCAINE 1% LOCAL 20 ML VIAL ONE (06:57)
--- NOTE | 2022-12-04 07:52 | History & Physical Bridge Note ---
Date of Service December 04, 2022 History & Physical Bridge Note I have examined the patient, reviewed the History & Physical and in the interval since the performance of the History & Physical I have noted the following changes of clinical significance: no changes noted. We will plan ventricular lead revision and possible pacemaker replacement depending on projected longevity during the case. I reviewed the indications, procedure, risks and alternatives with the patient, and answered all questions. Patient understands and agrees to the procedure. Consent obtained. I also reviewed the risks and use of sedation, patient understands and consent obtained.
--- NOTE | 2022-12-04 07:53 | Pre Anesthesia Assessment ---
Date of Service December 04, 2022 Pre Sedation Assessment Vital Signs Temp Pulse Resp BP Pulse Ox O2 Del Method 12/04/22 07:20 36.8 C 64 20 118/59 L 97 Room Air Cardiovascular RRR, no murmur, no edema Respiratory normal respiratory effort, lungs clear to auscultation Pre-Sedation Airway Assessment Smoking Status: Never smoker Hx Sleep Apnea: Yes Hx Difficult Intubation: No Short, Thick Neck: No Thyromental Distance: > or= 3.5 Finger Breadths Oral Cavity: + WNL Mallampati Class: II ASA: ASA3 NPO Status Date of Last Intake of Fluids: 12/03/22 Time of Last Intake of Fluids: 21:00 Date of Last Intake of Solid Food: 12/03/22 Time of Last Intake of Solid Foods: 21:00 Procedure Planning Contraindications for Sedation: none Current Medications Reviewed: Yes Notes The planned sedation has been discussed with the patient. Informed Consent was obtained. I have identified the patient, determined the appropriateness of sedation and have assessed the patient immediately prior to the procedure. All medicine(s) and interventions are by my order.
[2022-12-04] MEDS ORDERED: ceFAZolin 330 MG/ML 1 GM VIAL ONE (07:57)
[2022-12-04] MEDS ORDERED: fentaNYL citrate PF 100 MCG/2 ML VIAL ONE ×2 (07:57→08:44)
[2022-12-04] MEDS ORDERED: MIDAZOLAM HCL 5 MG/ML 1 ML VIAL ONE (07:57)
[2022-12-04] MEDS ORDERED: MIDAZOLAM HCL 1 MG/ML 2ML VIAL ONE (09:01)
[2022-12-04] MEDS ORDERED: BACITRACIN OINT 0.9 GM PKT ONE (09:36)
--- NOTE | 2022-12-04 09:47 | Electrophysiology Report ---
Date of Service December 04, 2022 Electrophysiology Procedure Electrophysiology Procedure Report Preoperative diagnosis: Elevated right ventricular lead threshold Wide QRS paced complex with dyspnea on exertion Complete heart block with pacemaker dependency Postoperative diagnosis: Same Procedure: Left subclavian venogram Right ventricular lead implantation Old right ventricular lead extraction Reattachment of chronic dual-chamber pacemaker Surgeon: Lane Polo MD Estimated blood loss: 20 cc Specimens: Explanted lead return to story teller Complications: None Disposition: Cardiology recovery unit Procedure details: After obtaining informed consent for the procedure, the patient was brought to the laboratory being NPO after midnight. After identification in the laboratory the patient was prepped and draped in the standard sterile manner for a left-sided device revision. Dye was injected the left arm IV site to opacify the left subclavian vein. The subclavian vein was identified and found to be free of obstruction. Left axillary venipuncture was performed by percutaneous technique and a guidewire placed through the left subclavian vein into the right atrium. The area was further infiltrated with 1% lidocaine local anesthetic and a 5 cm incision was made through the old implant scar and carried down to the pacemaker. The pacemaker was removed and the leads were dissected free of tissue but remained attached to the pacemaker. A 7 [place] Medtronic lead introducer was placed over the guidewire into the left subclavian vein, the dilator and guidewire were removed and a C315 sheath was advanced into the right ventricle over a guidewire. The guidewire and the dilator were removed and a bipolar active fixation Select Secure steroid tipped ventricular lead was advanced through the sheath into right ventricle. The ventricular lead was advanced through the sheath into a mid to distal septal location. The lead was rotated fixing the lead in position. Penetration into the septum was confirmed with dye injection. Pacing and sensing thresholds were evaluated in bipolar configuration and are recorded on the implant data sheet. The sheath system was stripped from the ventricular lead and the 7 [place] sheath was also stripped from the lead. Once the lead was in position it was attached to the anterior pectoralis fascia using 2 sutures of 2-0 silk around the lead collar. The chronic ventricular lead was disconnected from the pacemaker and the pacemaker was attached to the new ventricular lead and found to be functioning normally. The atrial lead remained in place. The chronic ventricular lead was disconnected from the pectoralis fascia and using gentle traction and counterclockwise rotation the lead was removed from the right ventricle. The vancomycin soaked sponge was removed from the pocket, hemostasis was obtained and the pacemaker was placed in the pocket with the leads coiled beneath it. The incision was closed with a running double subcutaneous closure of 3-0 Vicryl absorbable suture followed by a running sub cuticular skin closure of 4-0 Vicryl absorbable suture. Bacitracin ointment was placed on the incision and a dressing applied. [facility] [place] Electrophysiology codes Indication for Procedure (1) Pacemaker lead malfunction: Pacing Procedure 1: Pacin Insert permanent lead, single Procedure 2: Pacin Removal perm single lead Miscellaneous Procedures Procedure 1: EP Miscellaneous: 44563 Contrast injection for venography Procedure 2: EP Miscellaneous: 18781-03 Vengraphy, extremity PG Moderate Sedation Codes Moderate Sedation Codes Procedure 1: Sedation/Anesthesia: 15197 Mod Sedation by the same physician;Init15 Min Child Age 5 & Up Procedure 2: Sedation/Anesthesia: 83944 Mod Sedation by the same physician; Ea [id number] Minutes
[2022-12-04] MEDS ORDERED: KETOROLAC TROMETHAMINE 10 MG TABLET PO PRN (10:01)
[2022-12-04] MEDS ORDERED: ACETAMINOPHEN 325 MG TAB PO PRN (10:01)
[2022-12-04] MEDS ORDERED: POLYETHYLENE (MIRALAX) 17 GM PACK PO PRN (10:03)
[2022-12-04] MEDS ORDERED: PHARMACY GLYCEMIC MGMT CONSULT PRN (10:06)
--- NOTE | 2022-12-04 10:07 | Post Anesthesia Assessment ---
Date of Service December 04, 2022 Post Sedation Assessment Vital Signs Temp Pulse Resp BP Pulse Ox O2 Del Method 12/04/22 10:00 60 20 119/76 92 Room Air 12/04/22 09:45 61 20 127/71 92 Room Air 12/04/22 09:42 62 20 130/67 92 Room Air 12/04/22 07:20 36.8 C 64 20 118/59 L 97 Room Air Recovery Score Activity: Moves 4 extremities Respiration: Deep Breath/Cough Circulation: +/-20% PreAnes Value Consciousness: Fully Awake Oxygen Saturation: > 92% On Room Air Post Anesthesia Score: 10 Discharge Sedation Level of Care: Fast Track Phase II Post Sedation Plan On clinical assessment, the patient appears to have tolerated the sedation without complications. Patient is recovering as anticipated. Patient will continue to be monitored by nursing and may be discharged when sedation discharge criteria are met per below protocol. Upon Completions of procedure up to 15 minutes continue every 5 minute vital signs and the P.A.R. score; then discharge to a Phase I or Fast Track to Phase II per the following guidelines: * Discharge Patient to appropriate Phase II area if PAR is 8 or greater or return to pre- procedure baseline. The post - procedure orders will be as dir ected. * If PAR score is less than 8 or not return to pre-procedure baseline then patient will follow Phase I monitoring till PAR is reached for Phase II. The Phase I may be done in procedure room or may call to secure a Phase I area. * If naloxone or flumazenil are used for reversal, hold in Phase I for continued monitoring from when last reversal dose was given for a minimum of 60 minutes or longer pending the nurse and/or physician discretion of patient condition before discharge to Phase II. Please call the Sedation Physician to re-evaluate and complete post-note for discharge to Phase II area. Do NOT discharge from procedure sedation or Phase 1 until post- sedation evaluation note is complete by procedure /sedation MD Sedation Discharge Instructions to be given to the patient at discharge to home.
[2022-12-04] MEDS ORDERED: NON-FORMULARY MEDICATION (Cpap Machine misc) SCH (10:15)
[2022-12-04] MEDS ORDERED: DULAGLUTIDE 3 MG/0.5 ML SQ SCH (10:15)
[2022-12-04] MEDS ORDERED: GLUCOSE 10 TAB/TUBE PO PRN (11:00)
[2022-12-04] MEDS ORDERED: GLUCOSE 40% GEL 15 GM TUBE PO PRN (11:00)
[2022-12-04] MEDS ORDERED: CARBOHYDRATES FOR HYPOGLYCEMIA PO PRN (11:00)
[2022-12-04] MEDS ORDERED: DEXTROSE 50% 50 ML SYRINGE IV PRN (11:00)
[2022-12-04] MEDS ORDERED: GLUCAGON FOR INJ 1 MG VIAL IM PRN (11:00)
[2022-12-04] MEDS: INSULIN ASPART PER UNIT SC SCH ×3 (13:09→20:59)
--- NOTE | 2022-12-04 13:11 | Pharmacy Report ---
Pharmacy Glycemic Short Note 2 - Date of Service December 04, 2022 - Glycemic Short BSG Results (Last 24 hours): 12/04/22 11:04 POC Glucose 100 H OUTPATIENT ANTIDIABETIC REGIMEN: * Toujeo 35 units SQ HS * glipizide 5mg PO qAM * metformin 1gm PO BID * Trulicity 3mg weekly HbA1C: 5.5% (11/03/22) ASSESSMENT: * Pt is a 72 year old type 2 diabetic admitted for ventricular lead revision and possible pacemaker replacement. Pharmacy consulted to assist with glycemic management while admitted. * BSG 100 today at lunch (post-op). Ordered a diet, other stressors stable. * Based on previous glycemic data while admitted, will initiate Lantus tonight as an HS scale depending on BSG (max dose ~80% of home Toujeo). Novolog moderate stress scale. Plan to titrate pending BSG trend. PLAN FOR INPATIENT GLYCEMIC CONTROL: * Hold outpatient oral diabetes medications * Basal insulin * Lantus HS scale (10/15/25 units depending on BSG) * Bolus insulin * NovoLog per scale ACHS or Q6hrs while NPO * Goal Range: Low 110 mg/dL - High 140 mg/dL * Correction Factor: 25 mg/dL/unit * Nutritional / Prandial insulin per carb ratio of 1 unit per 8 grams CHO consumed
[2022-12-04] MEDS ORDERED: Nursing to Pharmacy Communication SCH ×2 (13:30→15:00)
[2022-12-04] MEDS: FUROSEMIDE 40 MG TAB PO SCH (15:15)
[2022-12-04] MEDS: dilTIAZem HCL 300 MG CAPCR PO SCH (20:58)
[2022-12-04] MEDS ORDERED: ASPIRIN 81 MG ECTAB PO SCH (21:00)
[2022-12-04] MEDS ORDERED: ROSUVASTATIN CALCIUM 20 MG TAB PO SCH (21:00)
[2022-12-04] MEDS: carvediloL 6.25 MG TAB PO SCH (21:00)
[2022-12-04] MEDS ORDERED: LANTUS PER UNIT CHARGE SQ SCH (21:00)
[2022-12-04] MEDS ORDERED: FUROSEMIDE 40 MG TAB PO SCH (21:00)
--- NOTE | 2022-12-05 06:39 | Electrocardiogram Report ---
Test Reason : Blood Pressure : / mmHG Vent. Rate : 060 BPM Atrial Rate : 060 BPM P-R Int : 176 ms QRS Dur : 182 ms QT Int : 510 ms P-R-T Axes : -07 -39 -63 degrees QTc Int : 510 ms AV dual-paced rhythm Abnormal ECG When compared with ECG of 05-JUL-2022 13:44, No significant change was found Confirmed by Dashawn Lopez ([id number]) on 12/05/2022 6:39:01 AM Referred By: Lane Polo Confirmed By:Dashawn Lopez
--- NOTE | 2022-12-05 08:00 | XRay Report ---
XR chest 2V PA/lateral CLINICAL HISTORY: EXACT TIME ORDERED Evaluate for pneumothorax and l TECHNIQUE: 2 views of the chest were obtained. Comparison: Comparison is made to chest radiograph 07/03/2022 FINDINGS: Dual lead pacemaker is seen. Cardiomegaly is noted. The aortic arch is calcified. Faint bibasilar air space opacities are seen. Small bilateral pleural effusions are seen. No pneumothorax is seen. IMPRESSION: 1. A dual-lead pacemaker is noted without evidence of pneumothorax. 2. Trace bilateral pleural effusions. 3. The airspace opacities in the lower lungs represent atelectasis with or without superimposed aspi ration/pneumonia. ACT 112: Negative or not required by law. Electronically signed by: Rahul Ribeiro M.D. 12/05/2022 7:58 AM
[2022-12-05] MEDS: carvediloL 6.25 MG TAB PO SCH (08:50)
[2022-12-05] MEDS: dilTIAZem HCL 300 MG CAPCR PO SCH (08:50)
[2022-12-05] MEDS: FUROSEMIDE 40 MG TAB PO SCH (08:50)
[2022-12-05] MEDS ORDERED: LOSARTAN POTASSIUM 50 MG TAB PO SCH (09:00)
[2022-12-05] MEDS ORDERED: glipiZIDE 5 MG TAB PO SCH (09:00)
[2022-12-05] MEDS: INSULIN ASPART PER UNIT SC SCH (09:01)
--- NOTE | 2022-12-05 09:31 | Cardiology Progress Note ---
Date of Service December 05, 2022 Assessment & Plan (1) Status post placement of cardiac pacemaker: Plan 1. Pacemaker implantation: Postop day #1, Admission and Anticipated Discharge Date Admission Date: December 04, 2022 Results & Data ([facility]) Vital Signs (Past 12 Hours) Vital Signs Temp Pulse Pulse Resp BP Pulse Ox O2 Del Method 12/05/22 07:16 36.7 C 69 21 161/77 H 95 Room Air 12/05/22 03:00 36.8 C 60 20 126/73 95 CPAP 12/05/22 02:18 60 22 96 12/04/22 23:00 36.6 C 60 20 127/69 96 CPAP FiO2 12/05/22 07:16 12/05/22 03:00 12/05/22 02:18 21 12/04/22 23:00 Laboratory Results Intake and Output 12/04/22 12/05/22 12/05/22 22:59 06:59 14:59 Intake Total 360 / 360 Balance 360 / 360 Intake: Oral 360 / 360 Other: # Unmeasured Voids 1 1 Diagnostic Findings Postop ECG: Acceptable morphology, appropriate ventricular pacing. Telemetry: Normal pacemaker function Chest x-ray: Good lead position, no pneumothorax Pacemaker evaluation: PG Care Time/CCT Total # of Minutes Spent Total Time Spent with Patient: Total time spent is greater than 50% in coordination of care (as documented) at patient's floor/unit and/or counseling patient: Coding Diagnoses Status post placement of cardiac pacemaker Z95.0
== END 2022-12-05 12:18 | disposition home or self-care (01) | DRG 261 ==
LOC: EP 06:48 → INTOOBSV 09:08 → 2S 09:08
DX: Z86.19 Personal history of other infectious and parasitic diseases; I25.10 Atherosclerotic heart disease of native coronary artery without angina pectoris; T82.190A Other mechanical complication of cardiac electrode, initial encounter; I11.0 Hypertensive heart disease with heart failure; I44.2 Atrioventricular block, complete; E78.5 Hyperlipidemia, unspecified; I50.32 Chronic diastolic (congestive) heart failure; Z95.0 Presence of cardiac pacemaker; Z87.442 Personal history of urinary calculi; Y83.1 Surgical operation with implant of artificial internal device as the cause of abnormal reaction of the patient, or of later complication, without mention of misadventure at the time of the procedure

== ENCOUNTER 2024-08-20 20:06 | Inpatient (IN) ==
--- NOTE | 2024-08-20 20:27 | Emergency Department Note ---
Impression & Plan Generalized weakness, Hypokalemia, COVID-19, Acute UTI, B-cell lymphoma ED Provider Note Provider: Jamir Carter MD CHIEF COMPLAINT: Weak, on chemo HISTORY OF PRESENT ILLNESS: Patient is a 73-year-old female past medical history of CHF, a flutter, hypertension, valvular heart disease, CAD, aortic stenosis, hypertension, diabetes and B cell lymphoma. Patient currently on chemo and radiation over the last several months and legs are very weak and she has had some falls. Fall week ago and a fall yesterday. Bumped her right arm but denies real significant pain there. Has been ongoing issues with incontinence and some abdominal cramping. Ongoing since her abdominal radiation. States anytime she eats she gets stool moving right through her and that she does not want to eat. Is on Ozempic as well. Has not had a little bit of a cough recently but no fevers. Did have blood work and did have infusion of 2 units of packed red blood cells last week as well as some potassium fluids and magnesium earlier. Friends have been staying and helping but the very concerned that she has been weak and not eating much and having these falls that she could injure herself. Follows locally for oncology at the cancer center. No severe abdominal pain at this point that is new. States the blood and transfusions for her anemia have not really made her feel that much better in the past. Denies any significant headache or head injury. PAST MEDICAL HISTORY: As noted above MEDICATIONS: Reviewed home medications SOCIAL HISTORY: Lives by herself PHYSICAL EXAM: GENERAL: alert and oriented in no acute distress on stretcher but fatigued in appearance and friends at bedside Head: normocephalic and atraumatic EYES: No injection, discharge or icterus. EOMI. NECK: Trachea midline. Supple. ENT: Mucous membranes pink and moist. LUNGS: Airway patent. No retractions. Breath sounds clear with good air entry bilaterally. HEART: Regular rate and rhythm. No chest wall tenderness with right upper chest port ABDOMEN: Soft and non-tender, without guarding or rebound. SKIN: Acyanotic, warm, dry, without rashes EXTREMITIES: Without swelling, tenderness or deformity with good range of motion of the right shoulder and arm. NEUROLOGICAL: No focal deficits. No aphasia. No facial droop or slurred speech. Normal strength and tone in the extremities. Sensation to gross touch normal. EK bpm AV paced rhythm without PVC. No clear acute ST segment elevation with nonspecific T wave changes inferior and lateral leads. QTc 463. Compared to previous from May 12 of this year similar morphology. CONTINUOUS CARDIAC MONITORING: was ordered and showed a heart rate of 60s bpm in AV paced rhythm GCS 15. Patient's laboratory studies and imaging reviewed. Differential includes traumatic injury, infection, dehydration, metabolic abnormality, hypo/hyperglycemia, electrolyte disturbance, anemia, hypoxia, cardiac sources, intracerebral event, toxicologic, neurologic, as well as other pathologies. IMPRESSION/MEDICAL DECISION MAKING: No significant focal deficits generalized weakness on chemotherapy and radiation. Decreased intake likely secondary to the radiation effect although some component of the Ozempic may be at play. Doubt any significant intracranial bleed or stroke at this time. Little bit of a cough. Did have recent blood work. Some low electrolytes but repletion earlier. Will double check them today. Will send a culture given her immunocompromise status although no fevers reported. The abdominal discomfort and diarrhea seems to be more ongoing chronic issue and I doubt this represents C. difficile likely more of radiation proctitis versus again effect from the Ozempic. History of heart failure but does not seem to be in overload at this time. Chest x-ray obtained to exclude pneumonia or overload. No chest pain but troponin is sent to look for signs of demand ischemia. Blood work lactate is normal. Respiratory viral panel positive for COVID. Likely some component of the patient's symptoms related to this. Blood work here hemoglobin 9.6 with a white blood cell count 1.46 near recent levels. Very mild hypokalemia of 3 without other severe electrolyte or kidney dysfunction noted. No transaminitis. CK not elevated. Troponin returns minimally elevated but much improved from previous. Chest x-ray per my interpretation without evidence of pneumonia, fluid overload/pulm edema, or pneumothorax. Similar to previous from the . Urinalysis returns Discussed with patient and friend's findings. Discussed options at this time. 20 meq equivalents of IV potassium was ordered via her central port. Urinalysis concerning for infection with nitrates, greater 50 white cells, and less than 5 epithelial cells. Reviewed prior microbiology. History of somewhat resistant E. coli. Given a dose of cefepime for antibiotic coverage. Discussed with her and friends findings of what looks like a UTI in addition to COVID with her symptoms. Significantly weak and falling. In shared decision making patient wished to stay for further care and assistance and I believe this is very reasonable. Hospitalist was contacted. DIAGNOSIS: Weakness, history of B-cell lymphoma chemo and radiation, COVID-19, acute UTI DISPOSITION: Hospitalist will evaluate Patient was agreeable with this plan. Past Med/Surg History Problem List (Updated 08/20/24 @ 23:28 by Jamir Carter M.D.) B-cell lymphoma (Acute) Acute UTI (Acute) COVID-19 (Acute) Hypokalemia (Acute) HFrEF (heart failure with reduced ejection fraction) Cardiomyopathy Generalized weakness (Acute) Hypokalemia Urinary tract infection (Acute) Pancytopenia (Acute) Arthritis of left hip Atrial flutter Anticoagulant long-term use Unspecified atrial fibrillation MAVERICK (iron deficiency anemia) Cardiac pacemaker Diastolic congestive heart failure, NYHA class 2 Vitamin D deficiency Chronic kidney disease, stage 3a Anemia has had eliquis on hold since 12/05/23 - pt has been receiving iron infusion and 3 blood transfusions since November 2023. Pleural effusion (Acute) Third degree heart block (Acute) reason for pacemaker Mediastinal adenopathy Sarcoid Diabetes mellitus, type II, insulin dependent Chronic cystitis (Acute) Essential hypertension (Acute) Microalbuminuria (Acute) Mitral regurgitation (Acute) Recurrent UTI (Acute) Tricuspid regurgitation (Acute) Trigger finger, acquired (Acute) Venous insufficiency (Acute) Morbid obesity (Chronic) Hyperlipidemia (Chronic) MAX (obstructive sleep apnea) (Chronic) cpap nightly LVH (left ventricular hypertrophy) (Chronic) Aortic stenosis (Chronic) mild calcific aortic stenosis noted on 2005 Echo at [facility] in 2019. 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 (Chronic) jail current use of insulin (Chronic) Medical History Gastritis due to bacteria h.pylori positive gastritis; following with GI Tricuspid regurgitation mild per 10/02/23 ECHO History of GI bleed Eliquis on hold as result; GI currently working up; had EGD 12/2023 Coronary artery disease severe RCA stenosis per cath 07/05/22; med mgmt recommended Anemia has had eliquis on hold since 12/05/23 - pt has been receiving iron infusion and 3 blood transfusions since November 2023 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 Aortic stenosis mod-severe per 10/02/23 ECHO LVH (left ventricular hypertrophy) MAX (obstructive sleep apnea) cpap nightly Hyperlipidemia Venous insufficiency Mitral regurgitation mod-severe per 10/02/23 ECHO HTN (hypertension) Chronic cystitis Hx of sarcoidosis follows with Chronic kidney disease (CKD), stage III (moderate) Vitamin D deficiency Diastolic congestive heart failure, NYHA class 2 follows with heart failure clinic Unspecified atrial fibrillation cardioversion 09/2023 [facility] Atrial flutter cardioversion 09/2023 [facility] History of ventricular tachycardia 7 sec run of NSVT per 01/13/24 pacer report. per Cardio comments: "continue to monitor" History of third degree heart block reason for pacemaker Abnormal findings on esophagogastroduodenoscopy (EGD) 12/2023: h.pylori gastritis, hernia History of cardioversion 09/2023 at [facility] - successful. History of COVID-12 March 2021 - cold symptoms. no current issues Hx of cancer of uterus s/p hyster 2005 History of B-cell lymphoma treatment for 1 year in 2019 *R-CHOP. Recurrence noted in LN on 03/10/24 bronchoscopy Diabetes mellitus, type 2 IDDM Neuropathy Pacemaker Medtronic pacer placed 11/2021 for complete heart block. follows with [facility], last checked 12/2023 Mediastinal lymphadenopathy Surgical History Port-A-Cath in place (04/02/24) Insertion Access Port with Fluoroscopy(Not Applicable) - Eddie Pineda DO, FACS Status post PICC central line placement Right IJ port placed for chemo 2018 (subsequently removed) S/P trigger finger release right hand History of cardiac catheterization 06/2022 [facility] - sob - no stents History of removal of Port-a-Cath Remove Access Port(Right) - Eddie Pineda DO, FACS [id number] H/O breast biopsy benign H/O total hysterectomy MAYITO and BSO 2006 History of tooth extraction History of cataract surgery bilateral History of bronchoscopy Status post placement of cardiac pacemaker 11/28/21 H/O excision of mass left neck (lymphoma) History of total knee arthroplasty bilateral History of tonsillectomy and adenoidectomy H/O colonoscopy Family History Grandfather (Maternal) Family history of diabetes mellitus Family/Other Family history of diabetes mellitus Father Myocardial infarction Family history of esophageal cancer Other No family history of adverse response to anesthesia Denies family history of Ovarian cancer Prostate cancer Breast cancer Colorectal cancer Social History (Updated 07/03/24 @ 13:13 by Nisha De La Cruz RN) Smoking Status: Never smoker Second Hand Exposure: Yes (hx); Do You Dip or Chew Tobacco: No; Hx Alcohol Use: No Hx Substance Use: No Preferred Language: British Communication Ability: Effective Visual Impairment: No Limitations Hearing Ability: Normal Knitting Machine Tender Required: No Beliefs That Will Affect Care: None marital status: Current Living Situation: Alone current occupational status: employed current occupation: [employer] How many Children do You have: 1 Feels Safe at Home: Yes Childhood Exposure to Second-Hand Smoke: Yes Diet: regular caffeine: Yes during the past year weight has: remained stable Dental Care, Regularly: Yes Physical Activity Frequency: Does not Exercise Seatbelt Use: always Sunscreen Use: Yes Assistive Devices: CPAP and Walker Allergies Allergies Allergy/AdvReac Type Severity Reaction Status Date / Time cat dander Allergy Intermediate ITCHY Verified 08/18/24 09:27 EYES, SNEEZING, CONGESTION lisinopril Allergy Mild Cough Verified 08/18/24 09:27 Sulfa (Sulfonamide AdvReac Intermediate NAUSEA Verified 08/18/24 09:27 Antibiotics) codeine AdvReac Mild Vomiting Verified 08/18/24 09:27 Home Meds Home Medications Medication Instructions Recorded Confirmed aspirin 81 mg tablet,delayed 81 mg PO HS 10/18/18 08/18/24 release (Ecotrin Low Strength) conjugated estrogens 0.625 mg/gram See Rx Instructions .Route 03/11/24 08/18/24 vaginal cream (Premarin) .COMPLEX PRN as needed docusate sodium 100 mg capsule 100 mg PO DAILY PRN Constipation 04/02/24 08/18/24 (Colace) bisacodyl 5 mg tablet,delayed 5 mg PO DAILY PRN Constipation 05/07/24 08/18/24 release ondansetron 8 mg disintegrating 8 mg PO Q8H 05/07/24 08/18/24 tablet prochlorperazine maleate 10 mg 10 mg PO Q6H PRN Nausea 05/07/24 08/18/24 tablet (Compazine) empagliflozin 10 mg tablet 10 mg PO QAM 05/12/24 08/18/24 (Jardiance) insulin aspart U-100 100 unit/mL 0 unit subcut TID PRN if premeal 05/12/24 08/18/24 (3 mL) subcutaneous pen (Novolog blood sugars greater than 250 FlexPen U-100 Insulin aspart) insulin glargine U-300 conc 300 40 unit subcut HS 05/12/24 08/18/24 unit/mL (1.5 mL) subcutaneous pen (Toujeo SoloStar U-300 Insulin) sennosides 8.6 mg tablet 8.6 mg PO DAILY PRN Diarrhea 05/12/24 08/18/24 pantoprazole 40 mg tablet,delayed 40 mg PO DAILY 06/10/24 08/18/24 release levofloxacin 750 mg tablet 750 mg PO DAILY 07/01/24 08/18/24 sulfamethoxazole-trimethoprim 1 tab PO .3XWEEKLY 07/01/24 08/18/24 [Bactrim] loratadine 10 mg tablet (Claritin) 10 mg PO DAILY PRN chemo 07/16/24 08/18/24 loperamide 2 mg capsule 2 mg PO Q6H PRN Diarrhea 08/12/24 08/18/24 furosemide 40 mg tablet 40 mg PO DAILY 08/18/24 08/18/24 Previous Rx's Medication Instructions Recorded pen needle, diabetic 31 gauge x #100 ea 05/15/22 3/" (BD Ultra-Fine Mini Pen Needle) albuterol sulfate 90 mcg/actuation 2 puff inhalation Q6H PRN 02/26/23 aerosol inhaler shortness of breath or wheezing #8.5 grams blood-glucose meter,continuous #3 ea 05/01/23 (Dexcom G7 Livestock Sales Representative) blood-glucose sensor (Dexcom G7 #9 ea 05/01/23 Sensor device) tramadol 50 mg tablet 50 mg PO Q6H PRN pain #20 tabs 03/11/24 polyethylene glycol 3350 17 17 g PO DAILY PRN constipation 04/16/24 gram/dose oral powder (Miralax) #119 grams lorazepam 0.5 mg tablet 0.5 mg PO HS PRN anxiety #20 tabs 05/08/24 miscellaneous medical supply #1 ea 05/13/24 potassium chloride 20 mEq 20 meq PO BID #60 tabs 05/17/24 tablet,extended release(part/cryst) acyclovir 400 mg tablet 400 mg PO BID #60 tabs 06/06/24 fluconazole 150 mg tablet 150 mg PO Q3D 2 doses #2 tabs 06/09/24 metformin 1,000 mg tablet 1,000 mg PO BID #180 tabs 06/16/24 rosuvastatin 20 mg tablet 20 mg PO HS #90 tabs 06/16/24 losartan 25 mg tablet 25 mg PO QAM #90 tabs 07/01/24 semaglutide 1 mg/dose (4 mg/3 mL) 1 mg (0.75 mL) subcut WK #3 mL 07/03/24 subcutaneous pen injector (Ozempic) carvedilol 12.5 mg tablet 12.5 mg PO BID #180 tabs 07/15/24 spironolactone 25 mg tablet 25 mg PO DAILY #30 tabs 08/18/24 Results & Data (ED) Vital Signs Vital Signs - 24 hr 08/20/24 20:11 08/20/24 21:23 08/20/24 21:28 Temperature 37.4 C Temperature Source Temporal Artery Scan Pulse Rate 67 68 61 Pulse Rate from SpO2 Sensor Respiratory Rate 16 12 Blood Pressure 93/53 L 100/48 L Blood Pressure Mean 66 71 Pulse Oximetry 98 Oxygen Delivery Method Room Air Sepsis Recent Fever Within 48 Hours No Sepsis New/Unexplained Change in Mental Status No Sepsis Action Taken by Nursing No Action Required 08/20/24 22:00 08/20/24 22:35 08/20/24 23:00 Temperature Temperature Source Pulse Rate 63 68 60 Pulse Rate from SpO2 Sensor 60 Respiratory Rate 18 12 Blood Pressure 103/48 L Blood Pressure Mean 65 Pulse Oximetry 98 95 Oxygen Delivery Method Room Air Room Air Sepsis Recent Fever Within 48 Hours Sepsis New/Unexplained Change in Mental Status Sepsis Action Taken by Nursing 08/21/24 00:00 Temperature Temperature Source Pulse Rate 57 L Pulse Rate from SpO2 Sensor Respiratory Rate 16 Blood Pressure 106/58 L Blood Pressure Mean 66 Pulse Oximetry 96 Oxygen Delivery Method Room Air Sepsis Recent Fever Within 48 Hours Sepsis New/Unexplained Change in Mental Status Sepsis Action Taken by Nursing Laboratory Data 08/20/24 21:20 08/20/24 21:20 Lab Results 08/20/24 08/20/24 08/20/24 Range/Units 20:39 21:20 22:35 WBC 1.46 L (4.8-10.8) K/ul RBC 3.24 L (4.20-5.40) M/uL Hgb 9.6 L (12.0-16.0) g/dl Hct 29.1 L (37.0-47.0) % MCV 89.8 (80.0-100.0) fL MCH 29.6 (25.0-34.0) pg MCHC 33.0 (32.0-36.0) g/dL RDW Std Deviation 60.9 H (36.4-46.3) fL RDW Coeff of Shruti 18.9 H (11.5-14.5) % Plt Count 43 L (130-400) K/uL MPV 10.5 (9.4-12.4) fL Immature Gran % (Auto) 0.7 % Neut % (Auto) 78.7 % Lymph % (Auto) 2.7 % Overton % (Auto) 15.8 % Eos % (Auto) 1.4 % Baso % (Auto) 0.7 % Neut # (Auto) 1.15 L (1.40-6.50) K/uL Lymph # (Auto) 0.04 L (1.20-3.40) K/uL Overton # (Auto) 0.23 (0.11-0.59) K/uL Eos # (Auto) 0.02 (0.00-0.50) K/uL Baso # (Auto) 0.01 (0.00-0.20) K/uL Immature Gran # (Auto) 0.01 (0.01-0.20) K/uL Dohle Bodies 1+ PT 13.2 H (9.0-12.0) Seconds INR 1.2 H (0.9-1.1) Sodium 136 (136-145) mmol/L Potassium 3.0 L (3.5-5.1) mmol/L Chloride 102 (98-107) mmol/L Carbon Dioxide 25 (21-32) mmol/L Anion Gap 9 (3-11) BUN 20 (6-23) mg/dl Creatinine 0.93 (0.6-1.2) mg/dl Est Cr Clr Drug Dosing 57.0 ml/min eGFR 65.71 BUN/Creatinine Ratio 21.5 H (10-20) Glucose 127 H (70-99(Fasting)) mg/dl Lactate 1.7 (0.4-2.0) mmol/L Calcium 7.7 L (8.6-10.3) mg/dl Magnesium 1.9 (1.7-2.4) mg/dl Total Bilirubin 0.6 (0.2-1.0) mg/dl AST 7 L (13-39) U/L ALT 5 L (7-52) U/L Alkaline Phosphatase 51 (34-104) U/L Total Creatine Kinase 19 L (26-192) U/L Troponin I High Sens 25.0 H (0-14) pg/ml Total Protein 4.7 L (6.0-8.3) gm/dl Albumin 2.8 L (3.4-5.0) gm/dl Globulin 1.9 L (2.5-4.0) gm/dl Albumin/Globulin Ratio 1.5 (0.9-2) TSH 2.173 (0.300-4.500) uIu/ml Urine Color Dark Yellow Urine Appearance Clear (Clear) Urine pH 5.5 (4.5-7.5) Ur Specific Buford 1.017 (1.000-1.030) Urine Protein 2+ H (Negative) Urine Glucose (UA) 3+ H (Negative) Urine Ketones Negative (Negative) Urine Blood Trace H (Negative) Urine Nitrite Positive A (Negative) Urine Bilirubin Negative (Negative) Urine Urobilinogen Negative (Negative) Ur Leukocyte Esterase 1+ H (Negative) Urine WBC (Auto) >50 H (0-5) /hpf Urine RBC (Auto) 0-2 (0-2) /hpf U Hyaline Cast (Auto) 0-2 (0-2) /lpf U Epithel Cells (Auto) 3-5 H (0-2) /hpf Urine Bacteria (Auto) None Seen (None Seen) Urine Yeast Present A (None Prsent) Adenovirus (PCR) Not Detected (NotDetected) B. pertussis DNA (PCR) Not Detected (NotDetected) B.parapertussis DNA PCR Not Detected (NotDetected) C. pneumoniae DNA (PCR) Not Detected (NotDetected) Coronavirus OC43 (PCR) Not Detected (NotDetected) Coronavirus HKU1 (PCR) Not Detected (NotDetected) Coronavirus 229E (PCR) Not Detected (NotDetected) SARS-CoV-2 (PCR) DETECTED A (NotDetected) Coronavirus NL63 (PCR) Not Detected (NotDetected) Human Metapneumovir PCR Not Detected (NotDetected) Influenza Type A (PCR) Not Detected (NotDetected) Influenza Type B (PCR) Not Detected (NotDetected) M. pneumoniae (PCR) Not Detected (NotDetected) Parainfluenza 1 (PCR) Not Detected (NotDetected) Parainfluenza 2 (PCR) Not Detected (NotDetected) Parainfluenza 3 (PCR) Not Detected (NotDetected) Parainfluenza 4 (PCR) Not Detected (NotDetected) RSV (PCR) Not Detected (NotDetected) Entero/Rhino (PCR) Not Detected (NotDetected) 08/20/24 Range/Units 23:39 WBC (4.8-10.8) K/ul RBC (4.20-5.40) M/uL Hgb (12.0-16.0) g/dl Hct (37.0-47.0) % MCV (80.0-100.0) fL MCH (25.0-34.0) pg MCHC (32.0-36.0) g/dL RDW Std Deviation (36.4-46.3) fL RDW Coeff of Shruti (11.5-14.5) % Plt Count (130-400) K/uL MPV (9.4-12.4) fL Immature Gran % (Auto) % Neut % (Auto) % Lymph % (Auto) % Overton % (Auto) % Eos % (Auto) % Baso % (Auto) % Neut # (Auto) (1.40-6.50) K/uL Lymph # (Auto) (1.20-3.40) K/uL Overton # (Auto) (0.11-0.59) K/uL Eos # (Auto) (0.00-0.50) K/uL Baso # (Auto) (0.00-0.20) K/uL Immature Gran # (Auto) (0.01-0.20) K/uL Dohle Bodies PT (9.0-12.0) Seconds INR (0.9-1.1) Sodium (136-145) mmol/L Potassium (3.5-5.1) mmol/L Chloride (98-107) mmol/L Carbon Dioxide (21-32) mmol/L Anion Gap (3-11) BUN (6-23) mg/dl Creatinine (0.6-1.2) mg/dl Est Cr Clr Drug Dosing ml/min eGFR BUN/Creatinine Ratio (10-20) Glucose (70-99(Fasting)) mg/dl Lactate (0.4-2.0) mmol/L Calcium (8.6-10.3) mg/dl Magnesium (1.7-2.4) mg/dl Total Bilirubin (0.2-1.0) mg/dl AST (13-39) U/L ALT (7-52) U/L Alkaline Phosphatase (34-104) U/L Total Creatine Kinase (26-192) U/L Troponin I High Sens 25.9 H (0-14) pg/ml Total Protein (6.0-8.3) gm/dl Albumin (3.4-5.0) gm/dl Globulin (2.5-4.0) gm/dl Albumin/Globulin Ratio (0.9-2) TSH (0.300-4.500) uIu/ml Urine Color Urine Appearance (Clear) Urine pH (4.5-7.5) Ur Specific Buford (1.000-1.030) Urine Protein (Negative) Urine Glucose (UA) (Negative) Urine Ketones (Negative) Urine Blood (Negative) Urine Nitrite (Negative) Urine Bilirubin (Negative) Urine Urobilinogen (Negative) Ur Leukocyte Esterase (Negative) Urine WBC (Auto) (0-5) /hpf Urine RBC (Auto) (0-2) /hpf U Hyaline Cast (Auto) (0-2) /lpf U Epithel Cells (Auto) (0-2) /hpf Urine Bacteria (Auto) (None Seen) Urine Yeast (None Prsent) Adenovirus (PCR) (NotDetected) B. pertussis DNA (PCR) (NotDetected) B.parapertussis DNA PCR (NotDetected) C. pneumoniae DNA (PCR) (NotDetected) Coronavirus OC43 (PCR) (NotDetected) Coronavirus HKU1 (PCR) (NotDetected) Coronavirus 229E (PCR) (NotDetected) SARS-CoV-2 (PCR) (NotDetected) Coronavirus NL63 (PCR) (NotDetected) Human Metapneumovir PCR (NotDetected) Influenza Type A (PCR) (NotDetected) Influenza Type B (PCR) (NotDetected) M. pneumoniae (PCR) (NotDetected) Parainfluenza 1 (PCR) (NotDetected) Parainfluenza 2 (PCR) (NotDetected) Parainfluenza 3 (PCR) (NotDetected) Parainfluenza 4 (PCR) (NotDetected) RSV (PCR) (NotDetected) Entero/Rhino (PCR) (NotDetected) Administered Medications Potassium Chloride (K Fabio / Wtr) 20 meq in 100 mls @ 50 mls/hr IV ONE ONE; Protocol Stop: 08/21/24 01:04 Last Admin: 08/20/24 23:38 Dose: 50 mls/hr Documented By: SARAH Co-signed By: FAM Discontinued Medications Potassium Chloride (K Fabio / Wtr) 10 meq in 100 mls @ 100 mls/hr IV ONE ONE; Protocol Stop: 08/21/24 00:03 Last Admin: 08/20/24 23:16 Dose: Not Given Documented By: SARAH Cefepime HCl (Maxipime 2000mg) 2,000 mg in 20 mls @ 5 mls/min IV NOW STA; Protocol Stop: 08/20/24 23:17 Last Admin: 08/20/24 23:36 Dose: 5 mls/min Documented By: SARAH Imaging Data Radiologist's Impression: Chest X-Ray 08/20/24 20:27 Exam(s): XR CXR 1 VIEW EXAM: XR Chest, 1 View CLINICAL HISTORY: Reason for exam: weakness, falls. TECHNIQUE: Frontal view of the chest. COMPARISON: August 12, 2024 FINDINGS: Lungs: Mild central pulmonary vascular prominence; unchanged. No consolidation. Pleural space: Unremarkable. No pneumothorax. Heart: Cardiomegaly. Mediastinum: Unremarkable. Normal mediastinal contour. Bones/joints: Unremarkable. No acute fracture. Tubes, lines and devices: Left chest wall dual lead intracardiac device. Right-sided chest port stable when compared to prior exam. IMPRESSION: No acute findings in the chest. Electronically signed by: Rojelio Rivas MD 08/21/24 00:08 AM Discharge Plan Visit Data Chief Complaint: Leg Weakness, Bilateral Stated Complaint: CHEMO, LEG WEAKNESS, CANNOT WALK ED Provider: Jamir Carter Discharge Problem: Generalized weakness, Hypokalemia, COVID-19, Acute UTI, B-cell lymphoma Patient Disposition: Being Evaluated by Hospitalist Forms Stand Alone Forms: [facility] Prescriptions Prescriptions: No Action (DME) pen needle, diabetic [BD Ultra-Fine Mini Pen Needle] 31 gauge x 3/16" needle See Dose Instructions .ROUTE .MEDSUPPLY Qty: 100 4RF Dose Instruction: As directed Rx Instructions: Use as directed polyethylene glycol 3350 [Miralax] 17 gram/dose powder 17 g PO DAILY PRN (Reason: constipation) Qty: 119 0RF lorazepam 0.5 mg tablet 0.5 mg PO HS PRN (Reason: anxiety) Qty: 20 0RF (DME) miscellaneous medical supply Misc See Rx Instructions .ROUTE .MEDSUPPLY Qty: 1 0RF Rx Instructions: Stair Lift C85.9 acyclovir 400 mg tablet 400 mg PO BID Qty: 60 0RF fluconazole 150 mg tablet 150 mg PO Q3D 0 Days Qty: 2 0RF Rx Instructions: Take 1 tab, if symptoms do not improve, take the second tab 3 days following metformin 1,000 mg tablet 1,000 mg PO BID Qty: 180 0RF rosuvastatin 20 mg tablet 20 mg PO HS Qty: 90 0RF Ozempic 1 mg/dose (4 mg/3 mL) pen injector 1 mg subcut WK Qty: 3 1RF Rx Instructions: Q Fri carvedilol 12.5 mg tablet 12.5 mg PO BID Qty: 180 3RF Rx Instructions: must administer with a meal/food (DME) Dexcom G7 Sensor Device See Rx Instructions .Route Qty: 9 1RF Rx Instructions: Use for continuous glucose monitoring. Change every 10 days. (DME) Dexcom G7 Livestock Sales Representative Misc See Rx Instructions .Route Qty: 3 1RF Rx Instructions: For continuous glucose monitoring, Change every 3 months Premarin 0.625 mg/gram cream See Rx Instructions .ROUTE .COMPLEX PRN (Reason: as needed ) Dose Instruction: INSERT 1/2 GRAM INTRAVAGINALLY ONCE DAILY FOR 2 WEEKS THEN INSERT 1/2 GRAM THREE TIMES WEEKLY; OFF FOR 7 DAYS THEN REPEAT Rx Instructions: INSERT 1/2 GRAM INTRAVAGINALLY ONCE DAILY FOR 2 WEEKS THEN INSERT 1/2 GRAM THREE TIMES WEEKLY; OFF FOR 7 DAYS THEN REPEAT PRN; tramadol 50 mg tablet 50 mg PO Q6H PRN (Reason: pain) Qty: 20 0RF albuterol sulfate 90 mcg/actuation HFA aerosol inhaler 2 puff inhalation Q6H PRN (Reason: shortness of breath or wheezing) Qty: 8.5 0RF Patient Comments: Pt reports has not used. bisacodyl 5 mg tablet,delayed release (DR/EC) 5 mg PO DAILY PRN (Reason: Constipation) ondansetron 8 mg tablet,disintegrating 8 mg PO Q8H prochlorperazine maleate [Compazine] 10 mg tablet 10 mg PO Q6H PRN (Reason: Nausea) furosemide 40 mg tablet 40 mg PO DAILY spironolactone 25 mg tablet 25 mg PO DAILY Qty: 30 2RF levofloxacin 750 mg tablet 750 mg PO DAILY sulfamethoxazole-trimethoprim [Bactrim] 1 tab PO .3XWEEKLY losartan 25 mg tablet 25 mg PO QAM Qty: 90 1RF aspirin [Ecotrin Low Strength] 81 mg Tablet,Delayed Release (Dr/Ec) 81 mg PO HS Rx Instructions: on hold for 5 days PER PT PER SURGEON (NOT SURE WHEN THIS WAS WRITTEN). docusate sodium [Colace] 100 mg Capsule 100 mg PO DAILY PRN (Reason: Constipation) pantoprazole 40 mg tablet,delayed release (DR/EC) 40 mg PO DAILY Rx Instructions: TAKE 1 TABLET BY MOUTH ONCE DAILY, for 3 months loratadine [Claritin] 10 mg Tablet 10 mg PO DAILY PRN (Reason: chemo) loperamide [Imodium] 2 mg Capsule 2 mg PO Q6H PRN (Reason: Diarrhea) sennosides 8.6 mg tablet 8.6 mg PO DAILY PRN (Reason: Diarrhea) insulin aspart U-100 [Novolog FlexPen U-100 Insulin] 100 unit/mL (3 mL) insulin pen 0 unit subcut TID PRN (Reason: if premeal blood sugars greater than 250) Rx Instructions: Per sliding scale Jardiance 10 mg tablet 10 mg PO QAM Rx Instructions: TAKE ONE TABLET BY MOUTH EVERY MORNING. insulin glargine U-300 conc [Toujeo SoloStar U-300 Insulin] 300 unit/mL (1.5 mL) insulin pen 40 unit subcut HS potassium chloride 20 mEq Tablet,Er Particles/Crystals 20 meq PO BID Qty: 60 0RF Referrals Referrals: Nikki Tom MD [Primary Care Provider] -
[2024-08-20 21:33] LABS: Adenovirus PCR Not Detected (NotDetected); Bordetella parapertussis PCR Not Detected (NotDetected); Bordetella pertussis PCR Not Detected (NotDetected); Chlamydia pneumoniae PCR Not Detected (NotDetected); Coronavirus 229E PCR Not Detected (NotDetected); Coronavirus CoV-2 (COVID19)PCR DETECTED (NotDetected); Coronavirus HKU1 PCR Not Detected (NotDetected); Coronavirus NL63 PCR Not Detected (NotDetected); Coronavirus OC43PCR Not Detected (NotDetected); Human Metapneumovirus PCR Not Detected (NotDetected); Influenza A PCR Not Detected (NotDetected); Influenza B PCR Not Detected (NotDetected); Mycoplasma pneumoniae PCR Not Detected (NotDetected); Parainfluenza Virus 1 PCR Not Detected (NotDetected); Parainfluenza Virus 2 PCR Not Detected (NotDetected); Parainfluenza Virus 3 PCR Not Detected (NotDetected); Parainfluenza Virus 4 PCR Not Detected (NotDetected); Respiratory Syncytial VirusPCR Not Detected (NotDetected); Rhinovirus/Enterovirus PCR Not Detected (NotDetected)
[2024-08-20 21:57] LABS: Albumin Globulin Ratio 1.5 (0.9-2); Albumin Level 2.8 gm/dl (3.4-5.0); BUN Creatinine Ratio 21.5 (10-20); Bilirubin,Total 0.6 mg/dl (0.2-1.0); Calcium 7.7 mg/dl (8.6-10.3); Globulin 1.9 gm/dl (2.5-4.0); Magnesium 1.9 mg/dl (1.7-2.4); Total Protein 4.7 gm/dl (6.0-8.3)
[2024-08-20 22:00] LABS: Basophils # (auto) 0.01 K/uL (0.00-0.20); Basophils % (auto) 0.7 %; Dohle Bodies 1+; Eosinophils # (auto) 0.02 K/uL (0.00-0.50); Eosinophils % (auto) 1.4 %; Hematocrit (blood only) 29.1 % (37.0-47.0); Hemoglobin 9.6 g/dl (12.0-16.0); Immature Granulocytes # (auto) 0.01 K/uL (0.01-0.20); Immature Granulocytes % (auto) 0.7 %; Lymphocytes # (auto) 0.04 K/uL (1.20-3.40); Lymphocytes % (auto) 2.7 %; Mean Corpuscular Hemoglobin 29.6 pg (25.0-34.0); Mean Corpuscular Volume 89.8 fL (80.0-100.0); Mean Platelet Volume 10.5 fL (9.4-12.4); Monocytes # (auto) 0.23 K/uL (0.11-0.59); Monocytes % (auto) 15.8 %; Neutrophils # (auto) 1.15 K/uL (1.40-6.50); Neutrophils % (auto) 78.7 %; Platelet Count 43 K/uL (130-400); RDW Coefficient of Variation 18.9 % (11.5-14.5); RDW Standard Deviation 60.9 fL (36.4-46.3); Red Blood Count 3.24 M/uL (4.20-5.40); White Blood Count 1.46 K/ul (4.8-10.8)
[2024-08-20 22:12] LABS: Thyroid Stimulating Hormone 2.173 uIu/ml (0.300-4.500)
[2024-08-20 22:22] LABS: INR 1.2 (0.9-1.1); Prothrombin Time 13.2 Seconds (9.0-12.0)
[2024-08-20 23:08] LABS: Appearance Urine Clear (Clear); Bacteria Urine Automated None Seen (None Seen); Bilirubin Urine Negative (Negative); Blood Urine Trace (Negative); Cast Urine Automated 0-2 /lpf (0-2); Color Urine Dark Yellow; Glucose Urine UA 3+ (Negative); Ketones Urine Negative (Negative); Leukocyte Esterase Urine 1+ (Negative); Nitrite Urine Positive (Negative); Protein Urine 2+ (Negative); RBC Urine Automated 0-2 /hpf (0-2); Specific Gravity Urine 1.017 (1.000-1.030); Urobilinogen Urine Negative (Negative); WBC Urine Automated >50 /hpf (0-5); pH Urine 5.5 (4.5-7.5)
[2024-08-20] MEDS: POTASSIUM CHLORIDE / WTR 10 MEQ/100 ML PLCT IV ONE (23:16)
[2024-08-20] MEDS: CEFEPIME 2000MG 2,000 MG/20 ML SYR IV STA (23:36)
[2024-08-20] MEDS: POTASSIUM CHLORIDE / WTR 20 MEQ/100 ML PLCT IV ONE (23:38)
--- NOTE | 2024-08-21 00:08 | XRay Report ---
Exam(s): XR CXR 1 VIEW EXAM: XR Chest, 1 View CLINICAL HISTORY: Reason for exam: weakness, falls. TECHNIQUE: Frontal view of the chest. COMPARISON: August 12, 2024 FINDINGS: Lungs: Mild central pulmonary vascular prominence; unchanged. No consolidation. Pleural space: Unremarkable. No pneumothorax. Heart: Cardiomegaly. Mediastinum: Unremarkable. Normal mediastinal contour. Bones/joints: Unremarkable. No acute fracture. Tubes, lines and devices: Left chest wall dual lead intracardiac device. Right-sided chest port stable when compared to prior exam. IMPRESSION: No acute findings in the chest. Electronically signed by: Rojelio Rivas MD 08/21/24 00:08 AM
--- NOTE | 2024-08-21 02:09 | History & Physical Report ---
Date of Service August 21, 2024 Assessment & Plan (1) Acute UTI: Plan: - UA consistent with UTI and she is having symptoms- no leukocytosis, afebrile and hemodynamically stable - s/p cefepime in ED, last culture E Coli and was sensitive to Rocephin- plan to continue with Rocephin - F/u urine culture (2) B-cell lymphoma: Plan: - currently in treatment - pancytopenic - continue prophylactic per [facility] antibiotics with -> Bactrim, acyclovir, levofloxacin - continue to trend CBC (3) COVID-19: Plan: - noted on respiratory biofore in ED - some generalized weakness- which is likely multifactorial, but otherwise asymptomatic - COVID precautions (4) Hypokalemia: Plan: - K= 3 in ED - s/p 20meq IV KCl in ED - will give an additional 20meq PO - continue hold KCl-> 20meq PO BID (5) Generalized weakness: Plan: - likely multifactorial in the setting of UTI, COVID, and cancer treatment - PT/OT ordered - fall precautions (6) HFrEF (heart failure with reduced ejection fraction): Plan: - last TTE : Moderate LV dysfunction. EF 35-40%. Moderate LVH.Severe .Moderate to severe MR. - continue Jardiance, lasix, spironolactone , losartan, carvedilol KCl 20meq BID (7) Coronary artery disease: Plan: - Asp held due to Plt count less than 50, restart with improvement of plts (8) Type 2 diabetes mellitus: Plan: - well controlled, last hemoglobin a1c= 5.1 03/17 - continue lantus 40 units qHS, Sliding scale coverage for meals Plan Chronic Stable: HTN: - continue carvedilol, losartan GERD: continue pantoprazole Anxiety: continue ativan 0.5mg HS prn Nausea: continue home zofran, Compazine prn HLD: continue rosuvastatin Chronic Pain: continue home tramadol 50mg q6H prn A-flutter: New onset 07/2023. Cardioversion 09/2023. No documented afib since that time. Eliquis stopped due to GIB- multiple transfusions. Code: Full Diet: DM2 DVT Prophylaxis: SCD, hold chemical due to anemia, history of bleeding, thrombocytopenia Dispo: Med Tele Admission and Anticipated Discharge Date Admission Date: August 21, 2024 History of Present Illness Primary Care Provider: Nikki Tom MD 73 year old female with a past medical history of B cell lymphoma, DM2, HTN, CHF, a flutter, CAD presenting with concern for increased weakness. Is currently in treatment for lymphoma- chemo/radiation. Has been feeling overall weak for past few weeks, worse in past couple of days. A few falls at home, denies injury. Does not loose stools with treatments. Over past few days has had dysuria and increase urinary frequency. Denies fever. Denies URI symptoms- cough, congestion. ED Course Significant for: Pancytopenia- WBC= 1.46, Hgb= 9.6, Plts= 43. K= 3. Trop 25-> 25.9. UA + trace blood, LE, nitrite. Resp biofire + COVID. CXR without acute pathology. S/p IV KCl x 20meq. 2g cefepime. Allergies Allergy/AdvReac Type Severity Reaction Status Date / Time cat dander Allergy Intermediate ITCHY Verified 08/18/24 09:27 EYES, SNEEZING, CONGESTION lisinopril Allergy Mild Cough Verified 08/18/24 09:27 Sulfa (Sulfonamide AdvReac Intermediate NAUSEA Verified 08/18/24 09:27 Antibiotics) codeine AdvReac Mild Vomiting Verified 08/18/24 09:27 Home Medications Medication Instructions Recorded Confirmed Type aspirin 81 mg tablet,delayed 81 mg PO HS 10/18/18 08/21/24 History release (Ecotrin Low Strength) pen needle, diabetic 31 gauge x #100 ea 05/15/22 08/21/24 Rx 3/16" (BD Ultra-Fine Mini Pen Needle) albuterol sulfate 90 mcg/actuation 2 puff inhalation Q6H PRN 02/26/23 08/21/24 Rx aerosol inhaler shortness of breath or wheezing #8.5 grams blood-glucose meter,continuous #3 ea 05/01/23 08/21/24 Rx (Dexcom G7 Counter Top Assembler) blood-glucose sensor (Dexcom G7 #9 ea 05/01/23 08/21/24 Rx Sensor device) conjugated estrogens 0.625 mg/gram See Rx Instructions .Route 03/11/24 08/21/24 History vaginal cream (Premarin) .COMPLEX PRN as needed tramadol 50 mg tablet 50 mg PO Q6H PRN pain #20 tabs 03/11/24 08/21/24 Rx docusate sodium 100 mg capsule 100 mg PO DAILY PRN Constipation 04/02/24 08/21/24 History (Colace) polyethylene glycol 3350 17 17 g PO DAILY PRN constipation 04/16/24 08/21/24 Rx gram/dose oral powder (Miralax) #119 grams bisacodyl 5 mg tablet,delayed 5 mg PO DAILY PRN Constipation 05/07/24 08/21/24 History release ondansetron 8 mg disintegrating 8 mg PO Q8H 05/07/24 08/21/24 History tablet prochlorperazine maleate 10 mg 10 mg PO Q6H PRN Nausea 05/07/24 08/21/24 History tablet (Compazine) lorazepam 0.5 mg tablet 0.5 mg PO HS PRN anxiety #20 tabs 05/08/24 08/21/24 Rx empagliflozin 10 mg tablet 10 mg PO QAM 05/12/24 08/21/24 History (Jardiance) insulin aspart U-100 100 unit/mL 0 unit subcut TID PRN if premeal 05/12/24 08/21/24 History (3 mL) subcutaneous pen (Novolog blood sugars greater than 250 FlexPen U-100 Insulin aspart) insulin glargine U-300 conc 300 40 unit subcut HS 05/12/24 08/21/24 History unit/mL (1.5 mL) subcutaneous pen (Toujeo SoloStar U-300 Insulin) sennosides 8.6 mg tablet 8.6 mg PO DAILY PRN Diarrhea 05/12/24 08/21/24 History miscellaneous medical supply #1 ea 05/13/24 08/21/24 Rx potassium chloride 20 mEq 20 meq PO BID #60 tabs 05/17/24 08/21/24 Rx tablet,extended release(part/cryst) acyclovir 400 mg tablet 400 mg PO BID #60 tabs 06/06/24 08/21/24 Rx pantoprazole 40 mg tablet,delayed 40 mg PO DAILY 06/10/24 08/21/24 History release metformin 1,000 mg tablet 1,000 mg PO BID #180 tabs 06/16/24 08/21/24 Rx rosuvastatin 20 mg tablet 20 mg PO HS #90 tabs 06/16/24 08/21/24 Rx levofloxacin 750 mg tablet 750 mg PO DAILY 07/01/24 08/21/24 History losartan 25 mg tablet 25 mg PO QAM #90 tabs 07/01/24 08/21/24 Rx sulfamethoxazole-trimethoprim 1 tab PO .3XWEEKLY 07/01/24 08/21/24 History [Bactrim] semaglutide 1 mg/dose (4 mg/3 mL) 1 mg (0.75 mL) subcut WK #3 mL 07/03/24 08/21/24 Rx subcutaneous pen injector (Ozempic) carvedilol 12.5 mg tablet 12.5 mg PO BID #180 tabs 07/15/24 08/21/24 Rx loratadine 10 mg tablet (Claritin) 10 mg PO DAILY PRN chemo 07/16/24 08/21/24 History loperamide 2 mg capsule 2 mg PO Q6H PRN Diarrhea 08/12/24 08/21/24 History furosemide 40 mg tablet 40 mg PO DAILY 08/18/24 08/21/24 History spironolactone 25 mg tablet 25 mg PO DAILY #30 tabs 08/18/24 08/21/24 Rx Past Med/Surg History Problem List (Updated 08/21/24 @ 15:48 by Keshav Meek DO) Low hemoglobin Diarrhea B-cell lymphoma (Acute) Acute UTI (Acute) COVID-19 (Acute) Hypokalemia (Acute) HFrEF (heart failure with reduced ejection fraction) Cardiomyopathy Generalized weakness (Acute) Hypokalemia Urinary tract infection (Acute) Pancytopenia (Acute) Arthritis of left hip Atrial flutter Anticoagulant long-term use Unspecified atrial fibrillation MAVERICK (iron deficiency anemia) Cardiac pacemaker Diastolic congestive heart failure, NYHA class 2 Vitamin D deficiency Chronic kidney disease, stage 3a Anemia has had eliquis on hold since 12/05/23 - pt has been receiving iron infusion and 3 blood transfusions since November 2023. Pleural effusion (Acute) Third degree heart block (Acute) reason for pacemaker Mediastinal adenopathy Sarcoid Diabetes mellitus, type II, insulin dependent Chronic cystitis (Acute) Essential hypertension (Acute) Microalbuminuria (Acute) Mitral regurgitation (Acute) Recurrent UTI (Acute) Tricuspid regurgitation (Acute) Trigger finger, acquired (Acute) Venous insufficiency (Acute) Morbid obesity (Chronic) Hyperlipidemia (Chronic) MAX (obstructive sleep apnea) (Chronic) cpap nightly LVH (left ventricular hypertrophy) (Chronic) Aortic stenosis (Chronic) mild calcific aortic stenosis noted on 2005 Echo at [facility] in 2019. 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) Medical History Gastritis due to bacteria h.pylori positive gastritis; following with GI Tricuspid regurgitation mild per 10/02/23 ECHO History of GI bleed Eliquis on hold as result; GI currently working up; had EGD 12/2023 Coronary artery disease severe RCA stenosis per cath 07/05/22; med mgmt recommended Anemia has had eliquis on hold since 12/05/23 - pt has been receiving iron infusion and 3 blood transfusions since November 2023 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 Aortic stenosis mod-severe per 10/02/23 ECHO LVH (left ventricular hypertrophy) MAX (obstructive sleep apnea) cpap nightly Hyperlipidemia Venous insufficiency Mitral regurgitation mod-severe per 10/02/23 ECHO HTN (hypertension) Chronic cystitis Hx of sarcoidosis follows with Chronic kidney disease (CKD), stage III (moderate) Vitamin D deficiency Diastolic congestive heart failure, NYHA class 2 follows with heart failure clinic Unspecified atrial fibrillation cardioversion 09/2023 [facility] Atrial flutter cardioversion 09/2023 [facility] History of ventricular tachycardia 7 sec run of NSVT per 01/13/24 pacer report. per Cardio comments: "continue to monitor" History of third degree heart block reason for pacemaker Abnormal findings on esophagogastroduodenoscopy (EGD) 12/2023: h.pylori gastritis, hernia History of cardioversion 09/2023 at [facility] - successful. History of COVID-12 March 2021 - cold symptoms. no current issues Hx of cancer of uterus s/p hyster 2005 History of B-cell lymphoma treatment for 1 year in 2019 *R-CHOP. Recurrence noted in LN on 03/10/24 bronchoscopy Diabetes mellitus, type 2 IDDM Neuropathy Pacemaker Medtronic pacer placed 11/2021 for complete heart block. follows with [facility] cardio, last checked 12/2023 Mediastinal lymphadenopathy Surgical History Port-A-Cath in place (04/02/24) Insertion Access Port with Fluoroscopy(Not Applicable) - Eddie Pineda DO, FACS Status post PICC central line placement Right IJ port placed for chemo 2019 (subsequently removed) S/P trigger finger release right hand History of cardiac catheterization 06/2022 [facility] - sob - no stents History of removal of Port-a-Cath Remove Access Port(Right) - Eddie Pineda DO, FACS [id number] H/O breast biopsy benign H/O total hysterectomy MAYITO and BSO 2006 History of tooth extraction History of cataract surgery bilateral History of bronchoscopy Status post placement of cardiac pacemaker 11/28/21 H/O excision of mass left neck (lymphoma) History of total knee arthroplasty bilateral History of tonsillectomy and adenoidectomy H/O colonoscopy Family History Grandfather (Maternal) Family history of diabetes mellitus Family/Other Family history of diabetes mellitus Father Myocardial infarction Family history of esophageal cancer Other No family history of adverse response to anesthesia Denies family history of Ovarian cancer Prostate cancer Breast cancer Colorectal cancer Social History (Updated 07/03/24 @ 13:13 by Nisha De La Cruz RN) Smoking Status: Never smoker Second Hand Exposure: Yes (hx); Do You Dip or Chew Tobacco: No; Hx Alcohol Use: No Hx Substance Use: No Preferred Language: Norwegian Communication Ability: Effective Visual Impairment: No Limitations Hearing Ability: Normal Brine Tank Tender Required: No Beliefs That Will Affect Care: None marital status: Current Living Situation: Alone current occupational status: employed current occupation: [employer] How many Children do You have: 1 Feels Safe at Home: Yes Safety Concerns: Feels Safe At This Time Childhood Exposure to Second-Hand Smoke: Yes Diet: regular caffeine: Yes during the past year weight has: remained stable Dental Care, Regularly: Yes Physical Activity Frequency: Does not Exercise Seatbelt Use: always Sunscreen Use: Yes Assistive Devices: Cane and Walker Review of Systems Review of Systems: As per above Physical Exam Physical Exam: Constitutional: well-appearing, no acute distress HEENT: NCAT, no conjunctival injection CV: regular rhythm, no murmur appreciated, extremities well-perfused, no LE edema Resp: CTABL, no wheezes/rales/rhonchi appreciated, no increased work of breathing GI: soft, nondistended, nontender MSK: no gross deformities appreciated Skin: warm, dry, no rash appreciated Neuro: alert, oriented, no focal neurologic deficit appreciated Results & Data Results & Data Vital Signs (Past 12 Hours) Vital Signs Temp Pulse Resp BP Pulse Ox O2 Del Method 08/21/24 00:00 57 L 16 106/58 L 96 Room Air 08/20/24 23:00 60 12 95 Room Air 08/20/24 22:35 68 98 Room Air 08/20/24 22:00 63 18 103/48 L 08/20/24 21:28 61 12 100/48 L 08/20/24 21:23 68 08/20/24 20:11 37.4 C 67 16 93/53 L 98 Room Air Code Status & VTE Plan VTE Prophylaxis Plan VTE Prophylaxis will be ordered: Yes Supervising Physician Co-Signing Physician Notes Attending addendum: I have physically seen this patient, have supervised the medical residents activities, and agree with the H&P unless as otherwise noted. Assessment and Plan: Urinary tract infection- 05/12/2024 UTI with E. coli pansensitive 02/29/2024 Klebsiella with pansensitive Follow urine culture sensitivity Status post cefepime in the ED Admit on ceftriaxone 2 g IV daily B-cell lymphoma- Currently in treatment Pancytopenia Continue routine prophylaxis with Bactrim, acyclovir and levofloxacin COVID-19 infection- COVID precautions Supportive therapy Hypokalemia- Potassium 3.0 and magnesium 1.9 Status post potassium chloride 20 mEq IV from the ED Given additional 20 mEq p.o. Recheck laboratories in the a.m. Remaining orders and notations as noted Resident Activity Tracking Resident Involvement: Resident Care Provided Care Provided: Adult Hospital Medicine
[2024-08-21] MEDS ORDERED: ALBUTEROL HFA 8 GM INHALER INH PRN (02:22)
[2024-08-21] MEDS ORDERED: POLYETHYLENE (MIRALAX) 17 GM PACK PO PRN (02:22)
[2024-08-21] MEDS ORDERED: traMADol HCL 50 MG TABLET PO PRN (02:22)
[2024-08-21] MEDS ORDERED: DOCUSATE SODIUM 100 MG CAP PO PRN (02:22)
[2024-08-21] MEDS: ONDANSETRON 8MG OD TAB PO SCH (03:23)
[2024-08-21] MEDS: POTASSIUM CHLORIDE CRTAB 20 MEQ TABCR PO STA (03:28)
[2024-08-21] MEDS ORDERED: PHENAZOPYRIDINE HCL 100 MG TAB PO PRN (03:39)
[2024-08-21] MEDS ORDERED: GLUCOSE 40% GEL 15 GM TUBE PO PRN (04:12)
[2024-08-21] MEDS ORDERED: CARBOHYDRATES FOR HYPOGLYCEMIA PO PRN (04:12)
[2024-08-21] MEDS ORDERED: GLUCOSE 10 TAB/TUBE PO PRN (04:12)
[2024-08-21] MEDS ORDERED: GLUCAGON FOR INJ 1 MG VIAL SQ PRN (04:12)
[2024-08-21] MEDS ORDERED: DEXTROSE 50% 50 ML SYRINGE IV PRN (04:12)
[2024-08-21 05:25] LABS: Hematocrit (blood only) 22.4 % (37.0-47.0); Hemoglobin 7.3 g/dl (12.0-16.0); Mean Corpuscular Hemoglobin 29.6 pg (25.0-34.0); Mean Corpuscular Hgb Conc 32.6 g/dL (32.0-36.0); Mean Corpuscular Volume 90.7 fL (80.0-100.0); Mean Platelet Volume 10.3 fL (9.4-12.4); Platelet Count 45 K/uL (130-400); RDW Coefficient of Variation 18.6 % (11.5-14.5); RDW Standard Deviation 61.7 fL (36.4-46.3); Red Blood Count 2.47 M/uL (4.20-5.40); White Blood Count 1.87 K/ul (4.8-10.8)
[2024-08-21 05:41] LABS: BUN Creatinine Ratio 22.6 (10-20); Calcium 7.7 mg/dl (8.6-10.3); Creatinine Clr Calc Pharmacy 55.8 ml/min; Magnesium 1.9 mg/dl (1.7-2.4); Potassium 3.1 mmol/L (3.5-5.1)
--- NOTE | 2024-08-21 07:46 | Hospitalist Progress Note ---
Date of Service August 21, 2024 Assessment & Plan (1) Generalized weakness: Plan: - likely multifactorial in the setting of DLBCL, prior CHOP chemotherapy and current abdominal radiation, current UTI, and COVID - PT/OT to evaluate and treat - fall precautions (2) Low hemoglobin: Plan: likely secondary to past chemo and current radiation; was transfused a week ago - currently 7.1 and downtrending - ordered 1 unit to transfuse and one unit on standby - daily CBC (3) Hypokalemia: Plan: 3 -> 3.1 - continue KCl 20meq PO BID (4) Acute UTI: Plan: - UA consistent with UTI and she is having symptoms- no leukocytosis, afebrile and hemodynamically stable - s/p cefepime in ED, last culture E Coli and was sensitive to Rocephin- plan to continue with Rocephin - F/u urine culture - pyridium for pain management (5) Diarrhea: Plan: reported episode of explosive diarrhea overnight into 08/21/24, not new to pt likely 2/2 radiation - test for C. diff - if C. diff negative, will order imodium for management of diarrhea (6) B-cell lymphoma: Plan: DLBCL - currently in treatment with abdominal radiation - pancytopenic - continue prophylactic per cancer care partnership antibiotics with -> Bactrim, acyclovir, levofloxacin - continue to trend CBC (7) COVID-19: Plan: - noted on respiratory biofore in ED - generalized weakness likely multifactorial, otherwise asymptomatic for URI - COVID precautions (8) HFrEF (heart failure with reduced ejection fraction): Plan: - last TTE : Moderate LV dysfunction. EF 35-40%. Moderate LVH.Severe .Moderate to severe MR. - continue Jardiance, lasix, spironolactone , losartan, carvedilol KCl 20meq BID (9) Coronary artery disease: Plan: - Asp held due to Plt count less than 50, restart with improvement of plts (10) Type 2 diabetes mellitus: Plan: - well controlled, last hemoglobin a1c= 5.1 03/17 - continue lantus 40 units qHS, Sliding scale coverage for meals Plan Chronic Stable: HTN: - continue carvedilol, losartan GERD: continue pantoprazole Anxiety: continue ativan 0.5mg HS prn Nausea: continue home zofran, Compazine prn HLD: continue rosuvastatin Chronic Pain: continue home tramadol 50mg q6H prn A-flutter: New onset 07/2023. Cardioversion 09/2023. No documented afib since that time. Eliquis stopped due to GIB- multiple transfusions. Code: Full Diet: DM2 DVT Prophylaxis: SCD, hold chemical due to anemia, history of bleeding, thrombocytopenia Dispo: Med Tele Admission and Anticipated Discharge Date Admission Date: August 21, 2024 Supervising Physician Co-Signing Physician Notes ATTESTATION I also saw the patient and confirmed bustillo portions of the history and exam. I agree with the impression and plan in the resident documentation, and as summarized below. Admitted earlier today by the overnight team, seen late morning in her room. Notes overall weakness, which has been progressive. She has had a few episodes of loose stools along with both bowel and bladder incontinence, which has been ongoing for the last few weeks or more. She had transfusion 2 units PRBCs about a week ago EXAM 104/58 most recent BP, HR 64, RR 16 She is A/O. NAD. CV regular Lungs clear ABD soft, non tender DATA Labs HgB 9.6, 7.3, 7.1 Potassium 3.1 Imaging CXR NAD Micro Blood culture 08/20/24 2120 hours pending Urine culture 07/2724 [id number] hours pending IMPRESSION & PLAN UTI vs radiation cystitis Rocephin added; she is on Bactrim and Levaquin for prophylaxis already Urine culture pending Add Pyridium (scheduled) Chemotherapy induced pancytopenia Daily CBC Given drop in HgB, and co-morbidities, will transfuse one unit now Loose stool Heme (+) stool Suspect represents radiation colitis Check c-diff given risks factors (negative about a month ago). Imodium if c-diff negative HFrEF LVH Valvular heart disease Must be judicious with fluid, although may need additional 500c bolus if pressures do not maintian Hypokalemia Replete and monitor CAD A-Flutter Aspirin on hold given thrombocytopenia AC on hold given anemia Additional per resident documentation Subjective Patient seen and evaluated at bedside, sitting in her chair in no apparent distress. Overnight, pt endorses she had explosive diarrhea which isn't very abnormal for her. This morning, States she at times chokes on her sputum but doesn't have much difficulty with food or liquids. Endorses generalized weakness, particularly in her legs which is why she has been falling more in recent weeks. States her fall just prior to her ER visit of current admission on 08/20/24 was due to leg weakness, denies tripping, fainting, or any head trauma on impact. Only notes she landed on her R shoulder. Denies any headache, neck pain, dizziness, nausea, vomiting, numbness or tingling in extremities. Notes she has been having UTI symptoms of burning with urination for a long time. Denies fever, chest pain, vision changes, SOB at this time. Review of Systems Review of Systems: per HPI Physical Exam Physical Exam: Constitutional: A&Ox3, appearing in no acute distress HEENT: NC/AT, anicteric sclerae, EOM intact Cardiovascular: RRR, +s1/s2, holosystolic murmur best heard in aortic and mitral valve areas, A>M, no rubs/gallops Respiratory: clear to auscultation b/l, fair equal air entry b/l, no wheeze/rales/rhonchi GI: abdomen soft, +BS, mild-moderate tenderness to palpation of suprapubic region, no CVA tenderness Neuro: no facial droop, speech intact MSK: 5/5 strength in all extremities Results & Data Results & Data Vital Signs (Past 12 Hours) Vital Signs Temp Pulse Pulse Resp BP BP Pulse Ox 08/21/24 02:17 36.9 C 71 18 101/60 95 08/21/24 00:00 57 L 16 106/58 L 96 08/20/24 23:00 60 12 95 08/20/24 22:35 68 98 08/20/24 22:00 63 18 103/48 L 08/20/24 21:28 61 12 100/48 L 08/20/24 21:23 68 08/20/24 20:11 37.4 C 67 16 93/53 L 98 O2 Del Method 08/21/24 02:17 Room Air 08/21/24 00:00 Room Air 08/20/24 23:00 Room Air 08/20/24 22:35 Room Air 08/20/24 22:00 08/20/24 21:28 08/20/24 21:23 08/20/24 20:11 Room Air Laboratory Results Abnormal lab results 08/20/24 08/20/24 08/20/24 Range/Units 20:39 21:20 22:35 WBC 1.46 L (4.8-10.8) K/ul RBC 3.24 L (4.20-5.40) M/uL Hgb 9.6 L (12.0-16.0) g/dl Hct 29.1 L (37.0-47.0) % RDW Std Deviation 60.9 H (36.4-46.3) fL RDW Coeff of Shruti 18.9 H (11.5-14.5) % Plt Count 43 L (130-400) K/uL Neut # (Auto) 1.15 L (1.40-6.50) K/uL Lymph # (Auto) 0.04 L (1.20-3.40) K/uL PT 13.2 H (9.0-12.0) Seconds INR 1.2 H (0.9-1.1) Sodium (136-145) mmol/L Potassium 3.0 L (3.5-5.1) mmol/L BUN/Creatinine Ratio 21.5 H (10-20) Glucose 127 H (70-99(Fasting)) mg/dl POC Glucose (70-99) mg/dl Calcium 7.7 L (8.6-10.3) mg/dl AST 7 L (13-39) U/L ALT 5 L (7-52) U/L Total Creatine Kinase 19 L (26-192) U/L Troponin I High Sens 25.0 H (0-14) pg/ml Total Protein 4.7 L (6.0-8.3) gm/dl Albumin 2.8 L (3.4-5.0) gm/dl Globulin 1.9 L (2.5-4.0) gm/dl Urine Protein 2+ H (Negative) Urine Glucose (UA) 3+ H (Negative) Urine Blood Trace H (Negative) Urine Nitrite Positive A (Negative) Ur Leukocyte Esterase 1+ H (Negative) Urine WBC (Auto) >50 H (0-5) /hpf U Epithel Cells (Auto) 3-5 H (0-2) /hpf Urine Yeast Present A (None Prsent) SARS-CoV-2 (PCR) DETECTED A (NotDetected) 08/20/24 08/21/24 08/21/24 Range/Units 23:39 04:53 08:29 WBC 1.87 L (4.8-10.8) K/ul RBC 2.47 L (4.20-5.40) M/uL Hgb 7.3 L (12.0-16.0) g/dl Hct 22.4 L (37.0-47.0) % RDW Std Deviation 61.7 H (36.4-46.3) fL RDW Coeff of Shruti 18.6 H (11.5-14.5) % Plt Count 45 L (130-400) K/uL Neut # (Auto) (1.40-6.50) K/uL Lymph # (Auto) (1.20-3.40) K/uL PT (9.0-12.0) Seconds INR (0.9-1.1) Sodium 135 L (136-145) mmol/L Potassium 3.1 L (3.5-5.1) mmol/L BUN/Creatinine Ratio 22.6 H (10-20) Glucose 139 H (70-99(Fasting)) mg/dl POC Glucose 131 H (70-99) mg/dl Calcium 7.7 L (8.6-10.3) mg/dl AST (13-39) U/L ALT (7-52) U/L Total Creatine Kinase (26-192) U/L Troponin I High Sens 25.9 H (0-14) pg/ml Total Protein (6.0-8.3) gm/dl Albumin (3.4-5.0) gm/dl Globulin (2.5-4.0) gm/dl Urine Protein (Negative) Urine Glucose (UA) (Negative) Urine Blood (Negative) Urine Nitrite (Negative) Ur Leukocyte Esterase (Negative) Urine WBC (Auto) (0-5) /hpf U Epithel Cells (Auto) (0-2) /hpf Urine Yeast (None Prsent) SARS-CoV-2 (PCR) (NotDetected) 08/21/24 Range/Units 13:58 WBC (4.8-10.8) K/ul RBC (4.20-5.40) M/uL Hgb 7.1 L (12.0-16.0) g/dl Hct 22.1 L (37.0-47.0) % RDW Std Deviation (36.4-46.3) fL RDW Coeff of Shruti (11.5-14.5) % Plt Count (130-400) K/uL Neut # (Auto) (1.40-6.50) K/uL Lymph # (Auto) (1.20-3.40) K/uL PT (9.0-12.0) Seconds INR (0.9-1.1) Sodium (136-145) mmol/L Potassium (3.5-5.1) mmol/L BUN/Creatinine Ratio (10-20) Glucose (70-99(Fasting)) mg/dl POC Glucose (70-99) mg/dl Calcium (8.6-10.3) mg/dl AST (13-39) U/L ALT (7-52) U/L Total Creatine Kinase (26-192) U/L Troponin I High Sens (0-14) pg/ml Total Protein (6.0-8.3) gm/dl Albumin (3.4-5.0) gm/dl Globulin (2.5-4.0) gm/dl Urine Protein (Negative) Urine Glucose (UA) (Negative) Urine Blood (Negative) Urine Nitrite (Negative) Ur Leukocyte Esterase (Negative) Urine WBC (Auto) (0-5) /hpf U Epithel Cells (Auto) (0-2) /hpf Urine Yeast (None Prsent) SARS-CoV-2 (PCR) (NotDetected) Resident Activity Tracking Resident Involvement: Resident Care Provided Care Provided: Adult Hospital Medicine
[2024-08-21] MEDS: ACYCLOVIR 400 MG TAB PO SCH (08:15)
[2024-08-21] MEDS: EMPAGLIFLOZIN 10 MG TAB PO SCH (08:16)
[2024-08-21] MEDS: carvediloL 12.5 MG TAB PO SCH (08:16)
[2024-08-21] MEDS: POTASSIUM CHLORIDE CRTAB 20 MEQ TABCR PO SCH (08:16)
[2024-08-21] MEDS: SPIRONOLACTONE 25 MG TAB PO SCH (08:16)
[2024-08-21] MEDS: cefTRIAXone SODIUM 2,000 MG/50 ML BAG IV SCH (08:16)
[2024-08-21] MEDS: PANTOprazole 40 MG TAB PO SCH (08:16)
[2024-08-21] MEDS: LOSARTAN POTASSIUM 25 MG TAB PO SCH (08:16)
[2024-08-21] MEDS: FUROSEMIDE 40 MG TAB PO SCH (08:16)
[2024-08-21] MEDS: VIBEGRON 75 MG TAB PO SCH (08:16)
[2024-08-21] MEDS: levoFLOXacin 750 MG TAB PO SCH (08:16)
[2024-08-21] MEDS: INSULIN ASPART PER UNIT CHARGE SC SCH (09:16)
[2024-08-21] MEDS: CHOLESTYRAMINE LIGHT 4 GM PKT PO SCH (10:32)
--- NOTE | 2024-08-21 11:52 | Electrocardiogram Report ---
Test Reason : Blood Pressure : */* mmHG Vent. Rate : 61 BPM Atrial Rate : 61 BPM P-R Int : 218 ms QRS Dur : 158 ms QT Int : 458 ms P-R-T Axes : -28 105 -71 degrees QTcB Int : 461 ms AV dual-paced rhythm Abnormal ECG When compared with ECG of 12-May-2024 12:20, Vent. rate has decreased by [address] Polo ([id number]) on 08/21/2024 11:51:59 AM Referred By: REFERRED SELF Confirmed By: Lane Polo
[2024-08-21] MEDS: PHENAZOPYRIDINE HCL 200 MG TAB PO SCH (13:08)
[2024-08-21 14:35] LABS: Hematocrit (blood only) 22.1 % (37.0-47.0); Hemoglobin 7.1 g/dl (12.0-16.0)
[2024-08-21] MEDS ORDERED: SODIUM CHLORIDE 0.9% 100 ML IV PRN (14:56)
[2024-08-21] MEDS ORDERED: SODIUM CHLORIDE 0.9% 50 ML IV PRN (14:56)
[2024-08-21] MEDS ORDERED: DIPHENOXYLATE/ATROPINE 2.5/0.025MG 5ML PO PRN (18:41)
[2024-08-21] MEDS: POTASSIUM CHLORIDE 20 MEQ/15 ML UDC PO STA (18:42)
[2024-08-21 20:24] LABS: Hematocrit (blood only) 23.8 % (37.0-47.0); Hemoglobin 7.8 g/dl (12.0-16.0)
[2024-08-21] MEDS: LANTUS PER UNIT CHARGE SQ SCH (20:47)
[2024-08-21] MEDS: ROSUVASTATIN CALCIUM 20 MG TAB PO SCH (20:47)
[2024-08-21] MEDS: MELATONIN 3 MG TAB PO PRN (22:05)
[2024-08-22 06:18] LABS: Hematocrit (blood only) 25.3 % (37.0-47.0); Hemoglobin 8.2 g/dl (12.0-16.0); Mean Corpuscular Hemoglobin 28.9 pg (25.0-34.0); Mean Corpuscular Hgb Conc 32.4 g/dL (32.0-36.0); Mean Corpuscular Volume 89.1 fL (80.0-100.0); Mean Platelet Volume 9.6 fL (9.4-12.4); Platelet Count 43 K/uL (130-400); RDW Coefficient of Variation 19.9 % (11.5-14.5); Red Blood Count 2.84 M/uL (4.20-5.40)
[2024-08-22 06:45] LABS: BUN Creatinine Ratio 17.8 (10-20); Calcium 7.7 mg/dl (8.6-10.3); Creatinine Clr Calc Pharmacy 48.4 ml/min; Magnesium 1.7 mg/dl (1.7-2.4); Potassium 3.6 mmol/L (3.5-5.1)
--- NOTE | 2024-08-22 07:56 | Hospitalist Progress Note ---
Date of Service August 22, 2024 Assessment & Plan (1) Generalized weakness: Plan: likely multifactorial in the setting of DLBCL, prior CHOP chemotherapy and current abdominal radiation, current UTI, and COVID - PT/OT to evaluate and treat: OT visit on 08/22/24, no PT note yet - continue fall precautions - in agreement to [facility] home health services including nursing and PT upon discharge (2) Low hemoglobin: Plan: uptrending s/p transfusion 1u on 08/21/24: 7.1 -> 8.2 - daily CBC (3) Acute UTI: Plan: - UA consistent with UTI and she is having symptoms- no leukocytosis, afebrile and hemodynamically stable - s/p cefepime in ED, last culture E Coli and was sensitive to Rocephin- plan to continue with Rocephin - urine culture positive for yeast "not Sammi albicans/dub" - awaiting further culture details. Hesitant to try fluconazole at the moment as her QT is >500 - pyridium for pain management (4) Diarrhea: Plan: reported episode of explosive diarrhea overnight into 08/21/24, not new to pt likely 2/2 abdominal radiation for past 20 weeks - C. diff pending - currently receiving home Lomotil to help control diarrhea (5) Hypokalemia: Plan: resolved, 3.1 -> 3.6 (6) B-cell lymphoma: Plan: DLBCL - currently in treatment with abdominal radiation 20wks - pancytopenic, s/p CHOP chemotherapy - continue prophylactic per cancer care partnership antibiotics with -> Bactrim, acyclovir, levofloxacin - continue to trend CBC (7) COVID-19: Plan: - noted on respiratory biofore in ED - generalized weakness likely multifactorial, otherwise asymptomatic for URI - COVID precautions (8) HFrEF (heart failure with reduced ejection fraction): Plan: - last TTE : Moderate LV dysfunction. EF 35-40%. Moderate LVH. Severe . Moderate to severe MR. - continue Jardiance, lasix, spironolactone , losartan, carvedilol KCl 20meq BID (9) Coronary artery disease: Plan: - Asp held due to Plt count less than 50, restart with improvement of plts (10) Type 2 diabetes mellitus: Plan: - well controlled, last hemoglobin a1c= 5.1 03/17 - continue lantus 40 units qHS, Sliding scale coverage for meals Plan Chronic Stable: HTN: - continue carvedilol, losartan GERD: continue pantoprazole Anxiety: continue ativan 0.5mg HS prn Nausea: continue home zofran, Compazine prn HLD: continue rosuvastatin Chronic Pain: continue home tramadol 50mg q6H prn A-flutter: New onset 07/2023. Cardioversion 09/2023. No documented afib since that time. Eliquis stopped due to GIB- multiple transfusions. Code: Full Diet: DM2 DVT Prophylaxis: SCD, hold chemical due to anemia, history of bleeding, t hrombocytopenia Dispo: Med Tele Admission and Anticipated Discharge Date Admission Date: August 21, 2024 Supervising Physician Co-Signing Physician Notes I personally examined the patient and verified bustillo points of history and exam, discussed case, and agree with decision making and plan documented by Dr. Meek. Patient is a 73-year-old female with a history of B-cell lymphoma with resultant chemotherapy-induced pancytopenia, COVID infection, and funguria. In addition, patient has had increasing loose stools and urinary and fecal incontinence. At present, patient remains on prophylactic levofloxacin, Bactrim, and acyclovir. Due to symptomatic funguria, will discontinue ceftriaxone and initiate fluconazole, still awaiting sensitivities. Subjective Patient seen and evaluated at bedside, sitting in her chair in no apparent distress with breakfast in front of her. Overnight, pt endorses she had some decent sleep. States she had urine incontinence which was bothersome to her, denies significant diarrhea since she's been on Lomotil since day prior 08/21/24. This morning, denies any particular discomfort or pain while sitting. Endorses she has been eating and drinking well without difficulty. Continues to endorses generalized weakness, particularly in her legs. Continues to endorse burning with urination but notes it has improved a bit with pyridium. Continues to deny any headache, neck pain, dizziness, nausea, vomiting, numbness or tingling in extremities. Denies fever, chest pain, vision changes, SOB at this time. Review of Systems Review of Systems: per HPI Physical Exam Physical Exam: Constitutional: A&Ox3, appearing in no acute distress HEENT: NC/AT, anicteric sclerae, EOM intact Cardiovascular: RRR, +s1/s2, holosystolic murmur best heard in aortic and mitral valve areas, A>M, no rubs/gallops Respiratory: clear to auscultation b/l, fair equal air entry b/l, no wheeze/rales/rhonchi GI: abdomen soft, +BS, mild-moderate tenderness to palpation of suprapubic maite on, no CVA tenderness Neuro: no facial droop, speech intact MSK: 5/5 strength in all extremities Results & Data Results & Data Vital Signs (Past 12 Hours) Vital Signs Temp Pulse Pulse Resp BP Pulse Ox O2 Del Method 08/22/24 07:08 61 08/22/24 03:25 36.5 C 63 18 95/62 L 95 Room Air 08/21/24 23:30 36.8 C 59 L 18 100/47 L 96 CPAP 08/21/24 22:06 63 Laboratory Results Abnormal lab results 08/21/24 08/21/24 08/21/24 Range/Units 11:33 13:58 17:52 WBC (4.8-10.8) K/ul RBC (4.20-5.40) M/uL Hgb 7.1 L (12.0-16.0) g/dl Hct 22.1 L (37.0-47.0) % RDW Std Deviation (36.4-46.3) fL RDW Coeff of Shruti (11.5-14.5) % Plt Count (130-400) K/uL POC Glucose 137 H (70-99) mg/dl Calcium (8.6-10.3) mg/dl Crossmatch See Detail 08/21/24 08/21/24 08/22/24 Range/Units 19:58 20:25 05:58 WBC 1.40 L (4.8-10.8) K/ul RBC 2.84 L (4.20-5.40) M/uL Hgb 7.8 L 8.2 L (12.0-16.0) g/dl Hct 23.8 L 25.3 L (37.0-47.0) % RDW Std Deviation 65.0 H (36.4-46.3) fL RDW Coeff of Shruti 19.9 H (11.5-14.5) % Plt Count 43 L (130-400) K/uL POC Glucose 103 H (70-99) mg/dl Calcium 7.7 L (8.6-10.3) mg/dl Crossmatch 08/22/24 08/22/24 Range/Units 08:30 12:32 WBC (4.8-10.8) K/ul RBC (4.20-5.40) M/uL Hgb (12.0-16.0) g/dl Hct (37.0-47.0) % RDW Std Deviation (36.4-46.3) fL RDW Coeff of Shruti (11.5-14.5) % Plt Count (130-400) K/uL POC Glucose 113 H 131 H (70-99) mg/dl Calcium (8.6-10.3) mg/dl Crossmatch Resident Activity Tracking Resident Involvement: Resident Care Provided Care Provided: Adult Hospital Medicine
[2024-08-22] MEDS: SULFAMETHOXAZOLE/TRIMETHOPRIM DS 800/160MG TAB PO SCH (08:47)
--- NOTE | 2024-08-23 07:10 | Electrocardiogram Report ---
Test Reason : Blood Pressure : */* mmHG Vent. Rate : 64 BPM Atrial Rate : 64 BPM P-R Int : 214 ms QRS Dur : 142 ms QT Int : 456 ms P-R-T Axes : 73 71 260 degrees QTcB Int : 470 ms Poor data quality, interpretation may be adversely affected Atrial-sensed ventricular-paced rhythm with prolonged AV conduction Abnormal ECG When compared with ECG of 21-Aug-2024 04:56, Vent. rate has increased by [address] Polo ([id number]) on 08/23/2024 7:10:06 AM Referred By: REFERRED SELF Confirmed By: Lane Polo
[2024-08-23 07:12] LABS: Hematocrit (blood only) 24.8 % (37.0-47.0); Hemoglobin 8.1 g/dl (12.0-16.0); Mean Corpuscular Hemoglobin 28.7 pg (25.0-34.0); Mean Corpuscular Hgb Conc 32.7 g/dL (32.0-36.0); Mean Corpuscular Volume 87.9 fL (80.0-100.0); Mean Platelet Volume 10.6 fL (9.4-12.4); Platelet Count 43 K/uL (130-400); RDW Coefficient of Variation 20.2 % (11.5-14.5); RDW Standard Deviation 63.7 fL (36.4-46.3); Red Blood Count 2.82 M/uL (4.20-5.40); White Blood Count 1.41 K/ul (4.8-10.8)
--- NOTE | 2024-08-23 07:37 | Hospitalist Progress Note ---
Date of Service August 23, 2024 Assessment & Plan (1) Generalized weakness: Plan: likely multifactorial in the setting of DLBCL, prior CHOP chemotherapy and current abdominal radiation, current UTI, and COVID - PT/OT to evaluate and treat: recommending home health [facility] and PT, patient in agreement - continue fall precautions, PT while inpatient (2) Low hemoglobin: Plan: appears stable s/p transfusion 1u on 08/21/24: 8.2 -> 8.1 - daily CBC (3) Acute UTI: Plan: urine culture final result 08/23/24: Yeast "not Sammi albicans/dub" - s/p cefepime in ED, last culture E Coli and was sensitive to Rocephin, which was started in ED but discontinued on 08/22/24 - considering fluconazole for fungal UTI showing yeast, but due to status on daily levofloxacin (during radiation) her QT is already slightly prolonged - ID consulted, called 3x and left voicemail about patient's complex situation - continue pyridium for pain management (4) Diarrhea: Plan: reported episode of explosive diarrhea overnight into 08/21/24, not new to pt likely 2/2 abdominal radiation for past 20 weeks - C. diff ordered but has not been collected - currently receiving home Lomotil to help control diarrhea (5) Hypokalemia: Plan: resolved, 3.6 -> 3.4 (6) B-cell lymphoma: Plan: DLBCL - currently in treatment with abdominal radiation 20wks - pancytopenic, s/p CHOP chemotherapy - continue prophylactic per cancer care partnership antibiotics with -> Bactrim, acyclovir, levofloxacin - continue to trend CBC (7) COVID-19: Plan: - noted on respiratory biofore in ED - generalized weakness likely multifactorial, otherwise asymptomatic for URI - COVID precautions (8) HFrEF (heart failure with reduced ejection fraction): Plan: - last TTE /: Moderate LV dysfunction. EF 35-40%. Moderate LVH. Severe . Moderate to severe MR. - continue Jardiance, lasix, spironolactone , losartan, carvedilol KCl 20meq BID (9) Coronary artery disease: Plan: Asp held due to Plt count less than 50, restart with improvement of plts (10) Type 2 diabetes mellitus: Plan: - well controlled, last hemoglobin a1c= 5.1 03/17 - continue lantus 40 units qHS, Sliding scale coverage for meals Plan Chronic Stable: HTN: - continue carvedilol, losartan GERD: continue pantoprazole Anxiety: continue ativan 0.5mg HS prn Nausea: continue home zofran, Compazine prn HLD: continue rosuvastatin Chronic Pain: continue home tramadol 50mg q6H prn A-flutter: New onset 07/2023. Cardioversion 09/2023. No documented afib since that time. Eliquis stopped due to GIB- multiple transfusions. Code: Full Diet: DM2 DVT Prophylaxis: SCD, hold chemical due to anemia, history of bleeding, thrombocytopenia Dispo: Med Tele Admission and Anticipated Discharge Date Admission Date: August 21, 2024 Supervising Physician Co-Signing Physician Notes I personally examined the patient and verified bustillo points of history and exam, discussed case, and agree with decision making and plan documented by Dr. Meek. Patient is a 73-year-old female with a history of B-cell lymphoma with resultant chemotherapy-induced pancytopenia, COVID infection, and funguria. Infectious disease been consulted for recommendations for treatment of symptomatic funguria. Subjective Patient seen and evaluated at bedside, sitting in her chair in no apparent distress with breakfast adjacent to her. Overnight, pt endorses she had some decent sleep but still experiencing urinary incontinence. Not interest in purewick due to discomfort. Continues to deny significant diarrhea since she's been on Lomotil since 08/21/24. This morning, denies any particular discomfort or pain while sitting. Endorses she has been eating and drinking well without difficulty. Continues to endorses generalized weakness, particularly in her legs. Continues to endorse burning with urination but notes it has improved a bit with pyridium. Patient informed that urine culture showed yeast and that we are awaiting more specific identification before treating. Informed that ID has been consulted and we will be following their recs. States she will continue refusing oral potassium liquid or pill because the liquid tastes bad and the pills are hard to swallow. Requesting IV K+ with fluids so it doesn't burn as much. Continues to deny any headache, neck pain, dizziness, nausea, vomiting, numbness or tingling in extremities. Denies fever, chest pain, vision changes, SOB at this time. Review of Systems Review of Systems: per HPI Physical Exam Physical Exam: Constitutional: A&Ox3, appearing in no acute distress HEENT: NC/AT, anicteric sclerae, EOM intact Cardiovascular: RRR, +s1/s2, holosystolic murmur best heard in aortic and mitral valve areas, A>M, no rubs/gallops Respiratory: clear to auscultation b/l, fair equal air entry b/l, no wheeze/rales/rhonchi GI: abdomen soft, +BS, mild-moderate tenderness to palpation of suprapubic region, no CVA tenderness Neuro: no facial droop, speech intact MSK: 5/5 strength in all extremities Results & Data Results & Data Vital Signs (Past 12 Hours) Vital Signs Temp Pulse Pulse Resp BP BP Pulse Ox 08/23/24 07:22 68 08/23/24 03:17 36.6 C 64 20 116/74 95 08/23/24 00:00 08/22/24 23:34 36.5 C 61 18 124/76 93 08/22/24 22:59 08/22/24 21:56 61 Pulse Ox O2 Del Method O2 Del Method 08/23/24 07:22 08/23/24 03:17 CPAP 08/23/24 00:00 95 Room Air 08/22/24 23:34 Room Air 08/22/24 22:59 Room Air 08/22/24 21:56 Laboratory Results Abnormal lab results 08/22/24 08/22/24 08/23/24 Range/Units 17:22 20:14 06:24 WBC 1.41 L (4.8-10.8) K/ul RBC 2.82 L (4.20-5.40) M/uL Hgb 8.1 L (12.0-16.0) g/dl Hct 24.8 L (37.0-47.0) % RDW Std Deviation 63.7 H (36.4-46.3) fL RDW Coeff of Shruti 20.2 H (11.5-14.5) % Plt Count 43 L (130-400) K/uL POC Glucose 119 H 126 H (70-99) mg/dl 08/23/24 08/23/24 Range/Units 08:21 11:55 WBC (4.8-10.8) K/ul RBC (4.20-5.40) M/uL Hgb (12.0-16.0) g/dl Hct (37.0-47.0) % RDW Std Deviation (36.4-46.3) fL RDW Coeff of Shruti (11.5-14.5) % Plt Count (130-400) K/uL POC Glucose 109 H 148 H (70-99) mg/dl Resident Activity Tracking Resident Involvement: Resident Care Provided Care Provided: Adult Hospital Medicine
--- NOTE | 2024-08-23 07:45 | Electrocardiogram Report ---
Test Reason : Blood Pressure : */* mmHG Vent. Rate : 64 BPM Atrial Rate : 57 BPM P-R Int : 186 ms QRS Dur : 180 ms QT Int : 536 ms P-R-T Axes : * 100 -35 degrees QTcB Int : 552 ms AV dual-paced rhythm with occasional Premature ventricular complexes Abnormal ECG When compared with ECG of 21-Aug-2024 09:27, (unconfirmed) Premature ventricular complexes are now Present Confirmed by Lane Polo ([id number]) on 08/23/2024 7:45:16 AM Referred By: REFERRED SELF Confirmed By: Lane Polo
--- NOTE | 2024-08-23 12:58 | Electrocardiogram Report ---
Test Reason : Blood Pressure : */* mmHG Vent. Rate : 61 BPM Atrial Rate : 61 BPM P-R Int : 214 ms QRS Dur : 150 ms QT Int : 460 ms P-R-T Axes : * 110 -75 degrees QTcB Int : 463 ms AV dual-paced rhythm with prolonged AV conduction with occasional supraventricular complexes Abnormal ECG When compared with ECG of 12-May-2024 12:20, Vent. rate has decreased by 12 bpm Confirmed by Hudson Hsu ([id number]) on 08/23/2024 12:58:27 PM Referred By: REFERRED SELF Confirmed By: Hudson Hsu
[2024-08-23 15:24] LABS: BUN Creatinine Ratio 18.3 (10-20); Calcium 7.3 mg/dl (8.6-10.3); Creatinine Clr Calc Pharmacy 49.7 ml/min; Potassium 3.4 mmol/L (3.5-5.1)
[2024-08-23] MEDS ORDERED: ACETAMINOPHEN 325 MG TAB PO PRN (21:20)
[2024-08-23] MEDS: ACETAMINOPHEN 500 MG TAB PO PRN (21:58)
[2024-08-24 05:59] LABS: Hematocrit (blood only) 23.5 % (37.0-47.0); Hemoglobin 7.6 g/dl (12.0-16.0); Mean Corpuscular Hemoglobin 28.8 pg (25.0-34.0); Mean Corpuscular Hgb Conc 32.3 g/dL (32.0-36.0); Mean Platelet Volume 10.8 fL (9.4-12.4); Platelet Count 40 K/uL (130-400); RDW Standard Deviation 64.7 fL (36.4-46.3); Red Blood Count 2.64 M/uL (4.20-5.40); White Blood Count 1.41 K/ul (4.8-10.8)
[2024-08-24 06:19] LABS: BUN Creatinine Ratio 22.7 (10-20); Calcium 7.4 mg/dl (8.6-10.3); Potassium 3.2 mmol/L (3.5-5.1)
--- NOTE | 2024-08-24 06:43 | Hospitalist Progress Note ---
Date of Service August 24, 2024 Assessment & Plan (1) Generalized weakness: Plan: likely multifactorial in the setting of DLBCL, prior CHOP chemotherapy and current abdominal radiation, current UTI, and COVID - PT/OT to evaluate and treat: recommending home health correction and PT, patient in agreement - continue fall precautions, PT while inpatient (2) Low hemoglobin: Plan: s/p transfusion 1U on 08/21/24 - Hgb downtrending over past day: 8.1 -> 7.6, asymptomatic - daily CBC (3) Acute UTI: Plan: urine culture final result 08/23/24: Yeast "not Sammi albicans/dub" - s/p cefepime in ED, last culture E Coli and was sensitive to Rocephin, which was started in ED but discontinued on 08/22/24 - considering fluconazole for fungal UTI showing yeast, but due to status on daily levofloxacin (during radiation) her QT is already slightly prolonged - ID consulted, called them today 08/24/24 and spoke with medical service representative, awaiting call from ID for guidance given pt's complex situation - continue pyridium for pain management (4) Diarrhea: Plan: with stool incontinence overnight, improving due to Lomotil likely 2/2 abdominal radiation for past 20 weeks - C. diff ordered but has not been collected - currently receiving home Lomotil to help control diarrhea (5) Hypokalemia: Plan: downtrending, 3.4 -> 3.2 - received 3x 10meq K-riders with 300cc IV fluid - BMP in AM (6) B-cell lymphoma: Plan: DLBCL - currently in treatment with abdominal radiation 20wks - pancytopenic, s/p CHOP chemotherapy - continue prophylactic per cancer [facility] antibiotics with -> Bactrim, acyclovir, levofloxacin - continue to trend CBC (7) COVID-19: Plan: - noted on respiratory biofore in ED - generalized weakness likely multifactorial, otherwise asymptomatic for URI - COVID precautions (8) HFrEF (heart failure with reduced ejection fraction): Plan: - last TTE /: Moderate LV dysfunction. EF 35-40%. Moderate LVH. Severe . Moderate to severe MR. - continue Jardiance, lasix, spironolactone , losartan, carvedilol KCl 20meq BID (9) Coronary artery disease: Plan: Asp held due to Plt count less than 50, restart with improvement of plts (10) Type 2 diabetes mellitus: Plan: - well controlled, last hemoglobin a1c= 5.1 03/17 - continue lantus 40 units qHS, Sliding scale coverage for meals Plan Chronic Stable: HTN: - continue carvedilol, losartan GERD: continue pantoprazole Anxiety: continue ativan 0.5mg HS prn Nausea: continue home zofran, Compazine prn HLD: continue rosuvastatin Chronic Pain: continue home tramadol 50mg q6H prn A-flutter: New onset 07/2023. Cardioversion 09/2023. No documented afib since that time. Eliquis stopped due to GIB- multiple transfusions. Code: Full Diet: DM2 DVT Prophylaxis: SCD, hold chemical due to anemia, history of bleeding, thrombocytopenia Dispo: Med Tele Admission and Anticipated Discharge Date Admission Date: August 21, 2024 Supervising Physician Co-Signing Physician Notes I personally examined the patient and verified bustillo points of history and exam, d iscussed case, and agree with decision making and plan documented by Dr. Meek. Patient with some clinical improvement today, good conversation at bedside with one of her friends present. Awaiting recommendations from infectious disease for treatment of symptomatic funguria. Patient will receive a unit of PRBC today. Unfortunately, patient struggling to ambulate in room due to limited area, she i s also on COVID precautions in negative pressure room. We discussed importance of conditioning post hospitalization, advised patient she may not qualify for inpatient rehab, but absolutely could have home with home health at her home. Patient does live alone, her friend expressed some concerns about this. Reviewed with patient obtaining a list of caretaking agencies available for her in [place] from case management. We discussed consideration of Meals on Wheels for her while she is convalescing from her chemotherapy and radiation therapies. Patient concerned about radiation therapy appointment tomorrow morning, advised team will call in am to discuss, but this will likely need to be rescheduled. Subjective Patient seen and evaluated at bedside, lying down in bed in no apparent distress with breakfast adjacent to her. Overnight, endorses having a small amount of stool incontinence on 3 occasions overnight and small amount of urinary incontinence about hourly overnight. Still not interested in [facility]. This morning, denies any particular discomfort or pain while lying down. Endorses her appetite has been low but she has been eating partial meals and drinking. Continues to endorses generalized weakness, particularly in her legs. Continues to endorse burning with urination but notes it has improved a bit with pyridium. Patient informed that we would get a hold of infectious disease to weigh in regarding restarting her on fluconazole with borderline QT interval. Still on levaquin, Zofran has be discontinued. Has received IV potassium with fluids this AM for repletion, no pain or burning experienced. Continues to deny any headache, neck pain, dizziness, nausea, vomiting, numbness or tingling in extremities. Denies fever, chest pain, vision changes, SOB at this time. Review of Systems Review of Systems: per HPI Physical Exam Physical Exam: Constitutional: A&Ox3, appearing in no acute distress HEENT: NC/AT, anicteric sclerae, EOM intact Cardiovascular: RRR, +s1/s2, holosystolic murmur best heard in aortic and mitral valve areas, A>M, no rubs/gallops Respiratory: clear to auscultation b/l, fair equal air entry b/l, no wheeze/rales/rhonchi GI: abdomen soft, +BS, mild-moderate tenderness to palpation of suprapubic region, no CVA tenderness Neuro: no facial droop, speech intact MSK: 5/5 strength in all extremities Results & Data Results & Data Vital Signs (Past 12 Hours) Vital Signs Temp Pulse Pulse Resp BP Pulse Ox Pulse Ox 08/24/24 03:56 36.6 C 54 L 16 114/60 93 08/24/24 00:21 08/24/24 00:00 96 08/23/24 23:09 36.7 C 56 L 18 117/62 94 08/23/24 22:06 71 08/23/24 20:16 36.5 C 59 L 18 104/68 94 O2 Del Method O2 Del Method 08/24/24 03:56 Room Air 08/24/24 00:21 Room Air 08/24/24 00:00 Room Air 08/23/24 23:09 Room Air 08/23/24 22:06 08/23/24 20:16 Room Air Laboratory Results Abnormal lab results 08/23/24 08/23/24 08/23/24 Range/Units 14:41 17:22 20:19 WBC (4.8-10.8) K/ul RBC (4.20-5.40) M/uL Hgb (12.0-16.0) g/dl Hct (37.0-47.0) % RDW Std Deviation (36.4-46.3) fL RDW Coeff of Shruti (11.5-14.5) % Plt Count (130-400) K/uL Potassium 3.4 L (3.5-5.1) mmol/L BUN/Creatinine Ratio (10-20) Glucose 112 H (70-99(Fasting)) mg/dl POC Glucose 115 H 136 H (70-99) mg/dl Calcium 7.3 L (8.6-10.3) mg/dl Magnesium (1.7-2.4) mg/dl 08/24/24 08/24/24 08/24/24 Range/Units 05:21 05:23 08:14 WBC 1.41 L (4.8-10.8) K/ul RBC 2.64 L (4.20-5.40) M/uL Hgb 7.6 L (12.0-16.0) g/dl Hct 23.5 L (37.0-47.0) % RDW Std Deviation 64.7 H (36.4-46.3) fL RDW Coeff of Shruti 20.0 H (11.5-14.5) % Plt Count 40 L (130-400) K/uL Potassium 3.2 L (3.5-5.1) mmol/L BUN/Creatinine Ratio 22.7 H (10-20) Glucose (70-99(Fasting)) mg/dl POC Glucose 122 H (70-99) mg/dl Calcium 7.4 L (8.6-10.3) mg/dl Magnesium 1.5 L (1.7-2.4) mg/dl 08/24/24 Range/Units 11:57 WBC (4.8-10.8) K/ul RBC (4.20-5.40) M/uL Hgb (12.0-16.0) g/dl Hct (37.0-47.0) % RDW Std Deviation (36.4-46.3) fL RDW Coeff of Shruti (11.5-14.5) % Plt Count (130-400) K/uL Potassium (3.5-5.1) mmol/L BUN/Creatinine Ratio (10-20) Glucose (70-99(Fasting)) mg/dl POC Glucose 135 H (70-99) mg/dl Calcium (8.6-10.3) mg/dl Magnesium (1.7-2.4) mg/dl Resident Activity Tracking Resident Involvement: Resident Care Provided Care Provided: Adult Hospital Medicine
[2024-08-24] MEDS: POTASSIUM CHLORIDE / WTR 10 MEQ/100 ML PLCT IV SCH (07:17)
[2024-08-24 07:53] LABS: Magnesium 1.5 mg/dl (1.7-2.4)
[2024-08-24] MEDS: DIPHENOXYLATE/ATROPINE 2.5/0.025MG TAB PO PRN (08:06)
[2024-08-24] MEDS: MAGNESIUM SULFATE / D5W 1 GM/100 ML BAG IV ONE (20:27)
[2024-08-24] MEDS: PROCHLORPERAZINE MALEATE 10 MG TAB PO PRN (20:45)
--- NOTE | 2024-08-24 20:47 | Billing Data ---
Date of Service August 24, 2024 Coding Level of Care Code 30231 INT INP/OBS CARE
[2024-08-24] MEDS: LORazepam 0.5 MG TAB PO PRN (20:49)
[2024-08-24 21:39] LABS: Hematocrit (blood only) 26.3 % (37.0-47.0); Hemoglobin 8.4 g/dl (12.0-16.0)
[2024-08-25 05:47] LABS: Hematocrit (blood only) 31.3 % (37.0-47.0); Hemoglobin 10.1 g/dl (12.0-16.0); Mean Corpuscular Hemoglobin 28.9 pg (25.0-34.0); Mean Corpuscular Hgb Conc 32.3 g/dL (32.0-36.0); Mean Corpuscular Volume 89.4 fL (80.0-100.0); Mean Platelet Volume 11.1 fL (9.4-12.4); Platelet Count 38 K/uL (130-400); RDW Coefficient of Variation 17.9 % (11.5-14.5); RDW Standard Deviation 56.4 fL (36.4-46.3); White Blood Count 1.54 K/ul (4.8-10.8)
[2024-08-25 06:02] LABS: BUN Creatinine Ratio 18.9 (10-20); Calcium 7.7 mg/dl (8.6-10.3); Creatinine Clr Calc Pharmacy 46.4 ml/min; Magnesium 1.7 mg/dl (1.7-2.4); Potassium 3.8 mmol/L (3.5-5.1)
--- NOTE | 2024-08-25 06:52 | Hospitalist Progress Note ---
Date of Service August 25, 2024 Assessment & Plan (1) Generalized weakness: Plan: likely multifactorial in the setting of DLBCL, prior CHOP chemotherapy and current abdominal radiation, current UTI, and COVID - PT/OT to evaluate and treat: recommending home health correction and PT, patient in agreement - continue fall precautions, PT while inpatient (2) Low hemoglobin: Plan: s/p transfusion 1U on 08/21/24 and 08/24/24 - Hgb improved: 7.6 -> 10.0 - daily CBC (3) Acute UTI: Plan: urine culture final result 08/23/24: Yeast "not Sammi albicans/dub" - cefepime continued while levofloxacin is held - restarting pt on fluconazole 200mg as levofloxacin has been held - monitor QT interval - continue pyridium for pain management (4) Diarrhea: Plan: improving due to Lomotil which she has taken at home for diarrhea likely 2/2 abdominal radiation for past 20 weeks (5) Hypokalemia: Plan: normalizing, 3.2 -> 3.8 - received 3x 10meq K-riders with 300cc IV fluid day prior 08/24/24 - BMP in AM (6) B-cell lymphoma: Plan: DLBCL - currently in treatment with abdominal radiation 20wks - pancytopenic, s/p CHOP chemotherapy - continue prophylactic per cancer care partnership antibiotics with -> Bactrim, acyclovir, levofloxacin - continue to trend CBC (7) COVID-19: Plan: - noted on respiratory biofore in ED - generalized weakness likely multifactorial, otherwise asymptomatic for URI - COVID precautions (8) HFrEF (heart failure with reduced ejection fraction): Plan: - last TTE : Moderate LV dysfunction. EF 35-40%. Moderate LVH. Severe . Moderate to severe MR. - continue Jardiance, lasix, spironolactone , losartan, carvedilol KCl 20meq BID (9) Coronary artery disease: Plan: Asp held due to Plt count less than 50, restart with improvement of plts (10) Type 2 diabetes mellitus: Plan: - well controlled, last hemoglobin a1c= 5.1 03/17 - continue lantus 40 units qHS, Sliding scale coverage for meals Plan Chronic Stable: HTN: - continue carvedilol, losartan GERD: continue pantoprazole Anxiety: continue ativan 0.5mg HS prn Nausea: continue home zofran, Compazine prn HLD: continue rosuvastatin Chronic Pain: continue home tramadol 50mg q6H prn A-flutter: New onset 07/2023. Cardioversion 09/2023. No documented afib since that time. Eliquis stopped due to GIB- multiple transfusions. Code: Full Diet: DM2 DVT Prophylaxis: SCD, hold chemical due to anemia, history of bleeding, thrombocytopenia Dispo: Med Tele Admission and Anticipated Discharge Date Admission Date: August 21, 2024 Supervising Physician Co-Signing Physician Notes I personally examined the patient and verified all bustillo points of history and exam, discussed case, and agree with decision making with Dr Meek feeling weak but not worse urinary and fecal incontinence starting about a month ago vitals noted nad heent nc at mmm breathing unlabored no accessory muscles good effort skin no rashes no pallor or icterus abd soft L lower abdomen mild tenderness no guarding no rebound mildly distended overall Weaknessappears to be multifactorial between lymphoma, radiation treatment, fungal urinary tract infection, and COVIDcontinue supportive care, otherwise as below. Possible fungal UTIversus radiation and/or mass irritation of her bladder and contaminant yeastappreciate infectious disease input. urinary incontinence - likely as above as well as ?constipation Fecal incontinencewas able to review CT scan for radiation treatmentand there appears to be reasonably sizable solid fecal loadI suspect this is probably culprit with overflowand may lead to some of her bladder symptoms as wellalthough I suspect the bladder symptoms are much more multifactorial and complicated. Will stop motility agents and once I get a chance to discuss with patientprobably start MiraLAX. Long QTfollow otherwise as above pharmacologic DVT prophylaxis contraindicated due to severe thrombocytopenia. SCDs ordered Subjective Patient seen and evaluated at bedside, lying down in bed in no apparent distress with breakfast in front of her. Overnight, states she felt overall quite well after receiving the transfusion and was able to sleep a bit. Denies significant stool incontinence overnight, still dribbling some urine. This morning, denies any particular discomfort or pain aside from usual burning with urination which is a bit more mild with pyridium. Endorses her appetite has been low but she has been eating partial meals and drinking fluids. Patient received a call from [facility] during encounter, they additionally are unsure if patient should undergo today's scheduled radiation treatment due to her current complicated medical condition. Discussed with ID Dr. Wilson about pt's situation having yeast in her urine with borderline prolonged QT interval on EKG. They are recommending we start pt on fluconazole, hold her levofloxacin for now, and put her on a [id number] agent with similar coverage, thus cefepime was recommended for pneumonia. Continues to deny any headache, cough, neck pain, dizziness, nausea, vomiting, numbness or tingling in extremities. Denies fever, chest pain, vision changes, SOB at this time. Review of Systems Review of Systems: per HPI Physical Exam Physical Exam: Constitutional: A&Ox3, appearing in no acute distress HEENT: NC/AT, anicteric sclerae, EOM intact Cardiovascular: RRR, +s1/s2, holosystolic murmur best heard in aortic and mitral valve areas, A>M, no rubs/gallops Respiratory: clear to auscultation b/l, fair equal air entry b/l, no wheeze/rales/rhonchi GI: abdomen soft, +BS, mild-moderate tenderness to palpation of suprapubic region, no CVA tenderness Neuro: no facial droop, speech intact MSK: 5/5 strength in all extremities Results & Data Results & Data Vital Signs (Past 12 Hours) Vital Signs Temp Pulse Pulse Resp BP BP Pulse Ox 08/25/24 03:46 36.6 C 60 16 113/69 94 08/24/24 23:50 36.9 C 62 16 106/72 93 08/24/24 23:50 36.9 C 61 16 106/71 92 08/24/24 23:20 36.8 C 60 17 113/74 08/24/24 23:18 36.9 C 63 18 113/70 94 08/24/24 23:05 36.9 C 60 17 105/69 08/24/24 22:46 36.9 C 67 17 113/70 94 08/24/24 21:40 60 08/24/24 20:51 62 08/24/24 20:20 08/24/24 19:48 36.9 C 58 L 17 117/75 92 O2 Del Method 08/25/24 03:46 Room Air 08/24/24 23:50 08/24/24 23:50 08/24/24 23:20 08/24/24 23:18 Room Air 08/24/24 23:05 08/24/24 22:46 08/24/24 21:40 08/24/24 20:51 08/24/24 20:20 Room Air 08/24/24 19:48 Laboratory Results Abnormal lab results 08/24/24 08/24/24 08/24/24 Range/Units 11:57 16:06 17:20 WBC (4.8-10.8) K/ul RBC (4.20-5.40) M/uL Hgb (12.0-16.0) g/dl Hct (37.0-47.0) % RDW Std Deviation (36.4-46.3) fL RDW Coeff of Shruti (11.5-14.5) % Plt Count (130-400) K/uL POC Glucose 135 H 126 H (70-99) mg/dl Calcium (8.6-10.3) mg/dl Crossmatch See Detail 08/24/24 08/24/24 08/25/24 Range/Units 20:15 21:20 05:22 WBC 1.54 L (4.8-10.8) K/ul RBC 3.50 L (4.20-5.40) M/uL Hgb 8.4 L 10.1 L (12.0-16.0) g/dl Hct 26.3 L 31.3 L (37.0-47.0) % RDW Std Deviation 56.4 H (36.4-46.3) fL RDW Coeff of Shruti 17.9 H (11.5-14.5) % Plt Count 38 L (130-400) K/uL POC Glucose 115 H (70-99) mg/dl Calcium 7.7 L (8.6-10.3) mg/dl Crossmatch 08/25/24 Range/Units 08:26 WBC (4.8-10.8) K/ul RBC (4.20-5.40) M/uL Hgb (12.0-16.0) g/dl Hct (37.0-47.0) % RDW Std Deviation (36.4-46.3) fL RDW Coeff of Shruti (11.5-14.5) % Plt Count (130-400) K/uL POC Glucose 106 H (70-99) mg/dl Calcium (8.6-10.3) mg/dl Crossmatch Resident Activity Tracking Resident Involvement: Resident Care Provided Care Provided: Adult Hospital Medicine
[2024-08-25 10:37] LABS: Basophils # (auto) 0.01 K/uL (0.00-0.20); Basophils % (auto) 0.5 %; Eosinophils # (auto) 0.07 K/uL (0.00-0.50); Eosinophils % (auto) 3.3 %; Hematocrit (blood only) 30.7 % (37.0-47.0); Immature Granulocytes # (auto) 0.03 K/uL (0.01-0.20); Immature Granulocytes % (auto) 1.4 %; Lymphocytes # (auto) 0.05 K/uL (1.20-3.40); Lymphocytes % (auto) 2.3 %; Mean Corpuscular Hemoglobin 29.2 pg (25.0-34.0); Mean Corpuscular Hgb Conc 32.6 g/dL (32.0-36.0); Mean Corpuscular Volume 89.8 fL (80.0-100.0); Mean Platelet Volume 9.8 fL (9.4-12.4); Monocytes # (auto) 0.31 K/uL (0.11-0.59); Monocytes % (auto) 14.6 %; Neutrophils # (auto) 1.66 K/uL (1.40-6.50); Neutrophils % (auto) 77.9 %; Platelet Count 33 K/uL (130-400); RDW Coefficient of Variation 18.2 % (11.5-14.5); RDW Standard Deviation 57.9 fL (36.4-46.3); Red Blood Count 3.42 M/uL (4.20-5.40); White Blood Count 2.13 K/ul (4.8-10.8)
--- NOTE | 2024-08-25 13:04 | Infectious Disease Consult ---
Date of Consultation August 25, 2024 Assessment & Plan (1) B-cell lymphoma: (2) Acute UTI: (3) COVID-19: (4) Pancytopenia: Plan This is a 73-year-old female with a history of diffuse large B cell lymphoma (DLBCL) diagnosed 2018, status post CHOP with relapse 03/13/2024 on on polatuzumab , rituximab , bendamustine and radiation, port in place, DM, HLD, CKD, CAD, pacemaker admitted with weakness, fatigue, found to have E coli bacteremia, likely from UTI, completed at 10-day course of antibiotics with ceftriaxone -->high-dose Augmentin. She now presents with progressive weakness of the legs status post falls. She has ongoing urinary and bowel incontinence with abdominal cramping. This has been ongoing since abdominal radiation. She also reports of a cough for about 2 weeks without fevers. She denies nausea, vomiting, headaches, or bloody stools. She denies any issues at the port site. She reports increased dysuria and urinary frequency in the last few days. In the ED temperature 37.4, pulse 67, respiratory rate 16, blood pressure 93/53, 98% on room air labs: WBC 1.46 (ANC 1.15), BUN 9.6, creatinine 29.1, platelets 43, BUN 20, creatinine 0.93. Urinalysis> 50 WBC, 02 RBC, 3-5 epithelial cells, no bacteria seen, yeast present. Urine culture with > 100 K yeast not Sammi albicans/dub. RVP positive for COVID. Chest x-ray with no acute findings. She is on Levaquin, tmp-sulfa and acyclovir prophylaxis. She received a dose of cefepime in the ED. She was noted to have a QTc of 470, then 552. Fluconazole was was not started for yeast in urine as she was also on Levaquin. Recent QTc is 489. ID consulted for funguria in neutropenic patient. Microbiology Urine culture 08/20 100 K yeast, not Sammi albicans/Dub Blood culture 08/20 NGTD Anti- infectives Levaquin (prophylaxis)ongoing Acyclovir (prophylaxisongoing Cefepime 08/20 Ceftriaxone # COVID+, on RA # Funguria in immunocompromised #Pancytopenia #Mild neutropenia # Prolonged QTC # Beatriz #Port in place #Relapsed DLBCL on chemo and abdominal radiation #H/o E coli bacteremia 2/2 UTI #Sulfa allergy: nausea #PPM in place # Sp BL TKA Discussion: Patient has chronic urinary symptoms. She does admit to a slightly acute component to her symptoms with more dysuria. Urinalysis and urine culture noted for yeast. Usually yeast in the urine is considered a contaminant and not treated except in some cases. One of the cases where treatment would be recomm ended is in the case of neutropenia. On admission, she has leukopenia of 1.46 with a mild neutropenia with an ANC. 1.15. She has not had a repeat CBCdifferential since admission. WBC today 2.13. She is on Levaquin prophylaxis daily and her QTc is somewhat prolonged. Most recent 489. Primary team had some concerns starting fluconazole given her prolonged QTc and synergic effects with Levaquin. Echinocandins, such as Micafungin do not have great efficacy in urinary tract. Since we do not have an updated ANC, would treat her funguria for now and repeat ANC to ensure she is no longer neutropenic. Can hold Levaquin and start cefepime instead to decrease synergistic meds that may prolong QTc Recommendations Check ANC ( no diff today ) START Fluconazole 200 mg po daily Monitor EKG daily Hold Levaquin and start Cefepime 2 g IV q12 ( on Levaquin for Proph) Continue Acyclovir and tmp-sulfa ppx. Can restart Levaquin PPX once off cefepime Recs d/w resident Thank you for this consult. ID will continue to follow Jorge Wilson MD, MPH Infectious Disease [facility], [facility] Call [phone] with questions Consultation Information Consultation was provided via telemedicine using two-way real-time interactive telecommunication between the patient and the telemedicine provider. For the duration of the visit, the provider was performing the assessment from a different facility than the patient. This includesuse of bluetooth stethoscope forauscultationperformed by the telepresenter that the telemedicine provider can hear if described in the physical exam. Tour Sales Representative contact information: Please call [facility] Call Center . (Phone Number For Physician Use Only) After establishing a telemedicine visit, patient was: Patient was verified with two unique identifiers Time Spent with Patient: Initial => 75 min History of Present Illness Reason for Consultation: Funguria, neutropenia, prolonged QTC Requesting Physician: Liat Mejia Attending Physician: Rojelio Egan DO History of Present Illness This is a 73-year-old female with a history of diffuse large B cell lymphoma (DLBCL) diagnosed 2018, status post CHOP with relapse 03/13/2024 on on polatuzumab , rituximab , bendamustine and radiation, port in place, DM, HLD, CKD, CAD, pacemaker admitted with weakness, fatigue, found to have E coli bacteremia, likely from UTI, completed at 10-day course of antibioti cs with ceftriaxone -->high-dose Augmentin. She now presents with progressive weakness of the legs status post falls. She has ongoing urinary and bowel incontinence with abdominal cramping. This has been ongoing since abdominal radiation. She also reports of a cough for about 2 weeks without fevers. She denies nausea, vomiting, headaches, or bloody stools. She denies any issues at the port site. She reports increased dysuria and urinary frequency in the last few days. In the ED temperature 37.4, pulse 67, respiratory rate 16, blood pressure 93/53, 98% on room air labs: WBC 1.46 (ANC 1.15), BUN 9.6, creatinine 29.1, platelets 43, BUN 20, creatinine 0.93. Urinalysis> 50 WBC, 02 RBC, 3-5 epithelial cells, no bacteria seen, yeast present. Urine culture with > 100 K yeast not Sammi albicans/dub. RVP positive for COVID. Chest x-ray with no acute findings. She is on Levaquin, tmp-sulfa and acyclovir prophylaxis. She received a dose of cefepime in the ED. She was noted to have a QTc of 470, then 552. Fluconazole was was not started for yeast in urine as she was also on Levaquin. Recent QTc is 489. ID consulted for funguria in neutropenic patient with prolonged qtc . Allergies Allergy/AdvReac Type Severity Reaction Status Date / Time cat dander Allergy Intermediate ITCHY Verified 08/18/24 09:27 EYES, SNEEZING, CONGESTION lisinopril Allergy Mild Cough Verified 08/18/24 09:27 Sulfa (Sulfonamide AdvReac Intermediate NAUSEA Verified 08/18/24 09:27 Antibiotics) codeine AdvReac Mild Vomiting Verified 08/18/24 09:27 Home Medications Medication Instructions Recorded Confirmed Type aspirin 81 mg tablet,delayed 81 mg PO HS 10/18/18 08/21/24 History release (Ecotrin Low Strength) pen needle, diabetic 31 gauge x #100 ea 05/15/22 08/21/24 Rx 3/16" (BD Ultra-Fine Mini Pen Needle) albuterol sulfate 90 mcg/actuation 2 puff inhalation Q6H PRN 02/26/23 08/21/24 Rx aerosol inhaler shortness of breath or wheezing #8.5 grams blood-glucose meter,continuous #3 ea 05/01/23 08/21/24 Rx (Dexcom G7 Diving Supervisor) blood-glucose sensor (Dexcom G7 #9 ea 05/01/23 08/21/24 Rx Sensor device) conjugated estrogens 0.625 mg/gram See Rx Instructions .Route 03/11/24 08/21/24 History vaginal cream (Premarin) .COMPLEX PRN as needed tramadol 50 mg tablet 50 mg PO Q6H PRN pain #20 tabs 03/11/24 08/21/24 Rx docusate sodium 100 mg capsule 100 mg PO DAILY PRN Constipation 04/02/24 08/21/24 History (Colace) polyethylene glycol 3350 17 17 g PO DAILY PRN constipation 04/16/24 08/21/24 Rx gram/dose oral powder (Miralax) #119 grams bisacodyl 5 mg tablet,delayed 5 mg PO DAILY PRN Constipation 05/07/24 08/21/24 History release ondansetron 8 mg disintegrating 8 mg PO Q8H 05/07/24 08/21/24 History tablet prochlorperazine maleate 10 mg 10 mg PO Q6H PRN Nausea 05/07/24 08/21/24 History tablet (Compazine) lorazepam 0.5 mg tablet 0.5 mg PO HS PRN anxiety #20 tabs 05/08/24 08/21/24 Rx empagliflozin 10 mg tablet 10 mg PO QAM 05/12/24 08/21/24 History (Jardiance) insulin aspart U-100 100 unit/mL 0 unit subcut TID PRN if premeal 05/12/24 08/21/24 History (3 mL) subcutaneous pen (Novolog blood sugars greater than 250 FlexPen U-100 Insulin aspart) insulin glargine U-300 conc 300 40 unit subcut HS 05/12/24 08/21/24 History unit/mL (1.5 mL) subcutaneous pen (Toujeo SoloStar U-300 Insulin) sennosides 8.6 mg tablet 8.6 mg PO DAILY PRN Diarrhea 05/12/24 08/21/24 History miscellaneous medical supply #1 ea 05/13/24 08/21/24 Rx potassium chloride 20 mEq 20 meq PO BID #60 tabs 05/17/24 08/21/24 Rx tablet,extended release(part/cryst) acyclovir 400 mg tablet 400 mg PO BID #60 tabs 06/06/24 08/21/24 Rx pantoprazole 40 mg tablet,delayed 40 mg PO DAILY 06/10/24 08/21/24 History release metformin 1,000 mg tablet 1,000 mg PO BID #180 tabs 06/16/24 08/21/24 Rx rosuvastatin 20 mg tablet 20 mg PO HS #90 tabs 06/16/24 08/21/24 Rx levofloxacin 750 mg tablet 750 mg PO DAILY 07/01/24 08/21/24 History losartan 25 mg tablet 25 mg PO QAM #90 tabs 07/01/24 08/21/24 Rx sulfamethoxazole-trimethoprim 1 tab PO .3XWEEKLY 07/01/24 08/21/24 History [Bactrim] semaglutide 1 mg/dose (4 mg/3 mL) 1 mg (0.75 mL) subcut WK #3 mL 07/03/24 08/21/24 Rx subcutaneous pen injector (Ozempic) carvedilol 12.5 mg tablet 12.5 mg PO BID #180 tabs 07/15/24 08/21/24 Rx loratadine 10 mg tablet (Claritin) 10 mg PO DAILY PRN chemo 07/16/24 08/21/24 History loperamide 2 mg capsule 2 mg PO Q6H PRN Diarrhea 08/12/24 08/21/24 History furosemide 40 mg tablet 40 mg PO DAILY 08/18/24 08/21/24 History spironolactone 25 mg tablet 25 mg PO DAILY #30 tabs 08/18/24 08/21/24 Rx Patient History Medical History Gastritis due to bacteria h.pylori positive gastritis; following with GI Tricuspid regurgitation mild per 10/02/23 ECHO History of GI bleed Eliquis on hold as result; GI currently working up; had EGD 12/2023 Coronary artery disease severe RCA stenosis per cath 07/05/22; med mgmt recommended Anemia has had eliquis on hold since 12/05/23 - pt has been receiving iron infusion and 3 blood transfusions since November 2023 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 Aortic stenosis mod-severe per 10/02/23 ECHO LVH (left ventricular hypertrophy) MAX (obstructive sleep apnea) cpap nightly Hyperlipidemia Venous insufficiency Mitral regurgitation mod-severe per 10/02/23 ECHO HTN (hypertension) Chronic cystitis Hx of sarcoidosis follows with Chronic kidney disease (CKD), stage III (moderate) Vitamin D deficiency Diastolic congestive heart failure, NYHA class 2 follows with heart failure clinic Unspecified atrial fibrillation cardioversion 09/2023 [facility] Atrial flutter cardioversion 09/2023 [facility] History of ventricular tachycardia 7 sec run of NSVT per 01/13/24 pacer report. per Cardio comments: "continue to monitor" History of third degree heart block reason for pacemaker Abnormal findings on esophagogastroduodenoscopy (EGD) 12/2023: h.pylori gastritis, hernia History of cardioversion 09/2023 at [facility] - successful. History of COVID-12 March 2021 - cold symptoms. no current issues Hx of cancer of uterus s/p hyster 2006 History of B-cell lymphoma treatment for 1 year in 2019 *R-CHOP. Recurrence noted in LN on 03/10/24 bronchoscopy Diabetes mellitus, type 2 IDDM Neuropathy Pacemaker Medtronic pacer placed 11/2021 for complete heart block. follows with [facility] cardio, last checked 12/2023 Mediastinal lymphadenopathy Surgical History Port-A-Cath in place (04/02/24) Insertion Access Port with Fluoroscopy(Not Applicable) - Eddie Pineda DO, FACS Status post PICC central line placement Right IJ port placed for chemo 2018 (subsequently removed) S/P trigger finger release right hand History of cardiac catheterization 06/2022 [facility] - sob - no stents History of removal of Port-a-Cath Remove Access Port(Right) - Eddie Pineda DO, FACS [id number] H/O breast biopsy benign H/O total hysterectomy MAYITO and BSO 2006 History of tooth extraction History of cataract surgery bilateral History of bronchoscopy Status post placement of cardiac pacemaker 11/28/21 H/O excision of mass left neck (lymphoma) History of total knee arthroplasty bilateral History of tonsillectomy and adenoidectomy H/O colonoscopy Family History Grandfather (Maternal) Family history of diabetes mellitus Family/Other Family history of diabetes mellitus Father Myocardial infarction Family history of esophageal cancer Other No family history of adverse response to anesthesia Denies family history of Ovarian cancer Prostate cancer Breast cancer Colorectal cancer Social History (Updated 07/03/24 @ 13:13 by Nisha De La Cruz RN) Smoking Status: Never smoker Second Hand Exposure: Yes (hx); Do You Dip or Chew Tobacco: No; Hx Alcohol Use: No Hx Substance Use: No Preferred Language: Occitan Communication Ability: Effective Visual Impairment: No Limitations Hearing Ability: Normal Field Operations Technician Required: No Beliefs That Will Affect Care: None marital status: Current Living Situation: Alone current occupational status: employed current occupation: [employer] How many Children do You have: 1 Feels Safe at Home: Yes Safety Concerns: Feels Safe At This Time Childhood Exposure to Second-Hand Smoke: Yes Diet: regular caffeine: Yes during the past year weight has: remained stable Dental Care, Regularly: Yes Physical Activity Frequency: Does not Exercise Seatbelt Use: always Sunscreen Use: Yes Assistive Devices: Cane and Walker Review of System A 10 point ROS obtained. Pertinent Positives as per HPI. Physical Exam Physical Exam: Gen- chronically ill appearing. NAD Neck - supple Chest- RU chest port, No increased work of breathing, On RA, PPM site w/o s/o i nfection Abd- soft, not tender -no elise, no suprapubic or CVA tenderness Extremities- NO edema Neuro- AAO times 3 Psych- Cooperative, normal mood Results & Data Vital Signs (Past 12 Hours) Vital Signs Temp Pulse Pulse Resp BP Pulse Ox O2 Del Method 08/25/24 11:27 36.7 C 60 17 98/63 L 94 Room Air 08/25/24 08:39 37.0 C 58 L 16 105/58 L 94 Room Air 08/25/24 07:21 Room Air 08/25/24 07:06 64 08/25/24 03:46 36.6 C 60 16 113/69 94 Room Air Laboratory Results Laboratory Results - last 48 hr 08/23/24 08/23/24 08/23/24 14:41 17:22 20:19 WBC RBC Hgb Hct MCV MCH MCHC RDW Std Deviation RDW Coeff of Shruti Plt Count MPV Immature Gran % (Auto) Neut % (Auto) Lymph % (Auto) [place] % (Auto) Eos % (Auto) Baso % (Auto) Neut # (Auto) Lymph # (Auto) [place] # (Auto) Eos # (Auto) Baso # (Auto) Immature Gran # (Auto) Sodium 138 Potassium 3.4 L Chloride 105 Carbon Dioxide 25 Anion Gap 8 BUN 19 Creatinine 1.04 Est Cr Clr Drug Dosing 49.7 eGFR 57.46 BUN/Creatinine Ratio 18.3 Glucose 112 H POC Glucose 115 H 136 H Calcium 7.3 L Magnesium Blood Type Antibody Screen Crossmatch 08/24/24 08/24/24 08/24/24 05:21 05:23 08:14 WBC 1.41 L RBC 2.64 L Hgb 7.6 L Hct 23.5 L MCV 89.0 MCH 28.8 MCHC 32.3 RDW Std Deviation 64.7 H RDW Coeff of Shruti 20.0 H Plt Count 40 L MPV 10.8 Immature Gran % (Auto) Neut % (Auto) Lymph % (Auto) [place] % (Auto) Eos % (Auto) Baso % (Auto) Neut # (Auto) Lymph # (Auto) [place] # (Auto) Eos # (Auto) Baso # (Auto) Immature Gran # (Auto) Sodium 137 Potassium 3.2 L Chloride 104 Carbon Dioxide 25 Anion Gap 8 BUN 22 Creatinine 0.97 Est Cr Clr Drug Dosing 53.0 eGFR 62.47 BUN/Creatinine Ratio 22.7 H Glucose 85 POC Glucose 122 H Calcium 7.4 L Magnesium 1.5 L Blood Type Antibody Screen Crossmatch 08/24/24 08/24/24 08/24/24 11:57 16:06 17:20 WBC RBC Hgb Hct MCV MCH MCHC RDW Std Deviation RDW Coeff of Shruti Plt Count MPV Immature Gran % (Auto) Neut % (Auto) Lymph % (Auto) [place] % (Auto) Eos % (Auto) Baso % (Auto) Neut # (Auto) Lymph # (Auto) [place] # (Auto) Eos # (Auto) Baso # (Auto) Immature Gran # (Auto) Sodium Potassium Chloride Carbon Dioxide Anion Gap BUN Creatinine Est Cr Clr Drug Dosing eGFR BUN/Creatinine Ratio Glucose POC Glucose 135 H 126 H Calcium Magnesium Blood Type B Positive Antibody Screen NEGATIVE Crossmatch See Detail 08/24/24 08/24/24 08/25/24 20:15 21:20 05:22 WBC 1.54 L RBC 3.50 L Hgb 8.4 L 10.1 L Hct 26.3 L 31.3 L MCV 89.4 MCH 28.9 MCHC 32.3 RDW Std Deviation 56.4 H RDW Coeff of Shruti 17.9 H Plt Count 38 L MPV 11.1 Immature Gran % (Auto) Neut % (Auto) Lymph % (Auto) [place] % (Auto) Eos % (Auto) Baso % (Auto) Neut # (Auto) Lymph # (Auto) [place] # (Auto) Eos # (Auto) Baso # (Auto) Immature Gran # (Auto) Sodium 139 Potassium 3.8 Chloride 107 Carbon Dioxide 25 Anion Gap 7 BUN 21 Creatinine 1.11 Est Cr Clr Drug Dosing 46.4 eGFR 53.14 BUN/Creatinine Ratio 18.9 Glucose 80 POC Glucose 115 H Calcium 7.7 L Magnesium 1.7 Blood Type Antibody Screen Crossmatch 08/25/24 08/25/24 08/25/24 08:26 10:21 12:22 WBC 2.13 L RBC 3.42 L Hgb 10.0 L Hct 30.7 L MCV 89.8 MCH 29.2 MCHC 32.6 RDW Std Deviation 57.9 H RDW Coeff of Shruti 18.2 H Plt Count 33 L MPV 9.8 Immature Gran % (Auto) 1.4 Neut % (Auto) 77.9 Lymph % (Auto) 2.3 [place] % (Auto) 14.6 Eos % (Auto) 3.3 Baso % (Auto) 0.5 Neut # (Auto) 1.66 Lymph # (Auto) 0.05 L [place] # (Auto) 0.31 Eos # (Auto) 0.07 Baso # (Auto) 0.01 Immature Gran # (Auto) 0.03 Sodium Potassium Chloride Carbon Dioxide Anion Gap BUN Creatinine Est Cr Clr Drug Dosing eGFR BUN/Creatinine Ratio Glucose POC Glucose 106 H 125 H Calcium Magnesium Blood Type Antibody Screen Crossmatch Diagnostic Findings Microbiology 08/20/24 22:35 Urine,Clean Catch Urine Culture - Final Yeast not Sammi albicans/dub 08/20/24 21:20 Blood Aerobic Blood Culture - Preliminary No growth in Aerobic bottle after 48 hours. 08/20/24 21:20 Blood Anaerobic Blood Culture - Preliminary No growth in Anaerobic bottle after 48 hours. Medications Administered Home Medications Medication Instructions Recorded Confirmed Last Taken aspirin 81 mg tablet,delayed 81 mg PO HS 10/18/18 08/21/24 5 Days Ago release (Ecotrin Low Strength) ~03/28/24 pen needle, diabetic 31 gauge x #100 ea 05/15/22 08/21/24 Unknown 3/16" (BD Ultra-Fine Mini Pen Needle) albuterol sulfate 90 mcg/actuation 2 puff inhalation Q6H PRN 02/26/23 08/21/24 Unknown aerosol inhaler shortness of breath or wheezing #8.5 grams blood-glucose meter,continuous #3 ea 05/01/23 08/21/24 Unknown (Dexcom G7 Diving Supervisor) blood-glucose sensor (Dexcom G7 #9 ea 05/01/23 08/21/24 Unknown Sensor device) conjugated estrogens 0.625 mg/gram See Rx Instructions .Route 03/11/24 08/21/24 2 Months Ago vaginal cream (Premarin) .COMPLEX PRN as needed ~02/01/24 tramadol 50 mg tablet 50 mg PO Q6H PRN pain #20 tabs 03/11/24 08/21/24 2 Days Ago ~03/31/24 docusate sodium 100 mg capsule 100 mg PO DAILY PRN Constipation 04/02/24 08/21/24 04/01/24 20:00 (Colace) polyethylene glycol 3350 17 17 g PO DAILY PRN constipation 04/16/24 08/21/24 Unknown gram/dose oral powder (Miralax) #119 grams bisacodyl 5 mg tablet,delayed 5 mg PO DAILY PRN Constipation 05/07/24 08/21/24 Unknown release ondansetron 8 mg disintegrating 8 mg PO Q8H 05/07/24 08/21/24 Unknown tablet prochlorperazine maleate 10 mg 10 mg PO Q6H PRN Nausea 05/07/24 08/21/24 Unknown tablet (Compazine) lorazepam 0.5 mg tablet 0.5 mg PO HS PRN anxiety #20 tabs 05/08/24 08/21/24 Unknown empagliflozin 10 mg tablet 10 mg PO QAM 05/12/24 08/21/24 05/12/24 09:00 (Jardiance) insulin aspart U-100 100 unit/mL 0 unit subcut TID PRN if premeal 05/12/24 08/21/24 Unknown (3 mL) subcutaneous pen (Novolog blood sugars greater than 250 FlexPen U-100 Insulin aspart) insulin glargine U-300 conc 300 40 unit subcut HS 05/12/24 08/21/24 05/11/24 23:00 unit/mL (1.5 mL) subcutaneous pen (Toujeo SoloStar U-300 Insulin) sennosides 8.6 mg tablet 8.6 mg PO DAILY PRN Diarrhea 05/12/24 08/21/24 Unknown miscellaneous medical supply #1 ea 05/13/24 08/21/24 Unknown potassium chloride 20 mEq 20 meq PO BID #60 tabs 05/17/24 08/21/24 Unknown tablet,extended release(part/cryst) acyclovir 400 mg tablet 400 mg PO BID #60 tabs 06/06/24 08/21/24 Unknown pantoprazole 40 mg tablet,delayed 40 mg PO DAILY 06/10/24 08/21/24 Unknown release metformin 1,000 mg tablet 1,000 mg PO BID #180 tabs 06/16/24 08/21/24 Unknown rosuvastatin 20 mg tablet 20 mg PO HS #90 tabs 06/16/24 08/21/24 Unknown levofloxacin 750 mg tablet 750 mg PO DAILY 07/01/24 08/21/24 Unknown losartan 25 mg tablet 25 mg PO QAM #90 tabs 07/01/24 08/21/24 Unknown sulfamethoxazole-trimethoprim 1 tab PO .3XWEEKLY 07/01/24 08/21/24 Unknown [Bactrim] semaglutide 1 mg/dose (4 mg/3 mL) 1 mg (0.75 mL) subcut WK #3 mL 07/03/24 08/21/24 Unknown subcutaneous pen injector (Ozempic) carvedilol 12.5 mg tablet 12.5 mg PO BID #180 tabs 07/15/24 08/21/24 Unknown loratadine 10 mg tablet (Claritin) 10 mg PO DAILY PRN chemo 07/16/24 08/21/24 Unknown loperamide 2 mg capsule 2 mg PO Q6H PRN Diarrhea 08/12/24 08/21/24 Unknown furosemide 40 mg tablet 40 mg PO DAILY 08/18/24 08/21/24 Unknown spironolactone 25 mg tablet 25 mg PO DAILY #30 tabs 08/18/24 08/21/24 Unknown Active Medications Generic Name Dose Route Start Last Admin Trade Name Freq PRN Reason Stop Dose Admin Acetaminophen 1,000 mg 08/23/24 21:21 08/24/24 20:32 Acetaminophen 500 Mg Tab PO 09/22/24 21:20 1,000 mg Q8H PRN Administration Pain Acyclovir 400 mg 08/21/24 09:00 08/25/24 08:33 Acyclovir 400 Mg Tab PO 09/20/24 08:59 400 mg BID MICHELLE Administration Carvedilol 12.5 mg 08/21/24 09:00 08/25/24 08:33 Carvedilol 12.5 Mg Tab PO 09/20/24 08:59 Not Given BID MICHELLE Cholestyramine Resin 4 gm 08/21/24 10:00 08/25/24 07:09 Cholestyramine Light 4 Gm Pkt PO 09/20/24 09:59 Not Given BID@1000,2200 MICHELLE Diphenoxylate HCl/Atropine 1 tab 08/24/24 07:26 08/24/24 20:57 Diphenoxylate/Atropine 2.5/0.025mg Tab PO 09/23/24 07:25 1 tab Q12H PRN Administration Diarrhea Empagliflozin 10 mg 08/21/24 09:00 08/25/24 08:33 Empagliflozin 10 Mg Tab PO 09/20/24 08:59 10 mg QAM MICHELLE Administration Furosemide 40 mg 08/21/24 09:00 08/25/24 08:33 Furosemide 40 Mg Tab PO 09/20/24 08:59 40 mg DAILY MICHELLE Administration Insulin Aspart 0 units 08/21/24 07:30 08/25/24 12:43 Insulin Aspart Per Unit Charge SC 09/20/24 07:29 Not Given ACHS MICHELLE Insulin Glargine 40 units 08/21/24 21:00 08/24/24 20:46 Lantus Per Unit Charge SQ 09/20/24 20:59 Not Given HS MICHELLE Levofloxacin 750 mg 08/21/24 09:00 08/25/24 08:33 Levofloxacin 750 Mg Tab PO 09/20/24 08:59 750 mg DAILY MICHELLE Administration Protocol Lorazepam 0.5 mg 08/21/24 02:22 08/24/24 20:49 Lorazepam 0.5 Mg Tab PO 09/20/24 02:21 0.5 mg HS PRN Administration anxiety Losartan Potassium 25 mg 08/21/24 09:00 08/25/24 08:34 Losartan Potassium 25 Mg Tab PO 09/20/24 08:59 25 mg QAM MICHELLE Administration Melatonin 3 mg 08/21/24 02:15 08/24/24 20:31 Melatonin 3 Mg Tab PO 09/20/24 02:14 3 mg HS PRN Administration Sleep Pantoprazole Sodium 40 mg 08/21/24 09:00 08/25/24 08:35 Pantoprazole 40 Mg Tab PO 09/20/24 08:59 40 mg DAILY MICHELLE Administration Phenazopyridine HCl 200 mg 08/21/24 14:00 08/25/24 08:33 Phenazopyridine Hcl 200 Mg Tab PO 09/20/24 13:59 200 mg TID MICHELLE Administration Potassium Chloride 20 meq 08/21/24 09:00 08/25/24 07:09 Potassium Chloride Crtab 20 Meq Tabcr PO 09/20/24 08:59 Not Given BID MICHELLE Prochlorperazine 10 mg 08/21/24 02:22 08/24/24 20:45 Prochlorperazine Maleate 10 Mg Tab PO 09/20/24 02:21 10 mg Q6H PRN Administration Nausea Rosuvastatin Calcium 20 mg 08/21/24 21:00 08/24/24 20:46 Rosuvastatin Calcium 20 Mg Tab PO 09/20/24 20:59 20 mg HS MICHELLE Administration Spironolactone 25 mg 08/21/24 09:00 08/25/24 08:34 Spironolactone 25 Mg Tab PO 09/20/24 08:59 25 mg DAILY MICHELLE Administration Trimethoprim/Sulfamethoxazole 1 tab 08/22/24 09:00 08/25/24 08:32 Sulfamethoxazole/Trimethoprim Ds 800/160mg Tab PO 09/21/24 08:59 1 tab MoWeFr@0900 MICHELLE Administration Vibegron 75 mg 08/21/24 09:00 08/25/24 08:32 Vibegron 75 Mg Tab PO 09/20/24 08:59 75 mg DAILY MICHELLE Administration
--- NOTE | 2024-08-25 13:56 | Electrocardiogram Report ---
Test Reason : Blood Pressure : */* mmHG Vent. Rate : 62 BPM Atrial Rate : 62 BPM P-R Int : 218 ms QRS Dur : 152 ms QT Int : 486 ms P-R-T Axes : 8 109 -53 degrees QTcB Int : 493 ms AV dual-paced rhythm with prolonged AV conduction Abnormal ECG When compared with ECG of 22-Aug-2024 08:37, Premature ventricular complexes are no longer Present Vent. rate has decreased by 2 bpm Confirmed by Hudson Hsu ([id number]) on 08/25/2024 1:56:14 PM Referred By: REFERRED SELF Confirmed By: Hudson Hsu
[2024-08-25] MEDS: CEFEPIME 2000MG 2,000 MG/20 ML SYR IV SCH (15:22)
--- NOTE | 2024-08-25 15:43 | Electrocardiogram Report ---
Test Reason : Blood Pressure : */* mmHG Vent. Rate : 61 BPM Atrial Rate : 61 BPM P-R Int : 222 ms QRS Dur : 152 ms QT Int : 486 ms P-R-T Axes : 38 109 -52 degrees QTcB Int : 489 ms AV dual-paced rhythm with prolonged AV conduction Abnormal ECG When compared with ECG of 24-Aug-2024 20:15, No significant change was found Confirmed by Hudson Hsu ([id number]) on 08/25/2024 3:43:05 PM Referred By: REFERRED SELF Confirmed By: Hudson Hsu
--- NOTE | 2024-08-25 15:47 | Electrocardiogram Report ---
Test Reason : Blood Pressure : */* mmHG Vent. Rate : 62 BPM Atrial Rate : 62 BPM P-R Int : 188 ms QRS Dur : 176 ms QT Int : 548 ms P-R-T Axes : 42 99 -43 degrees QTcB Int : 556 ms AV dual-paced rhythm Abnormal ECG When compared with ECG of 25-Aug-2024 05:48, (unconfirmed) No significant change was found Confirmed by Hudson Hsu ([id number]) on 08/25/2024 3:47:06 PM Referred By: REFERRED SELF Confirmed By: Hudson Hsu
[2024-08-25] MEDS: FLUCONAZOLE SUSP 200 MG/5 ML UDP PO SCH (16:41)
[2024-08-25] MEDS ORDERED: FLUCONAZOLE 100 MG TAB PO SCH (17:15)
--- NOTE | 2024-08-25 18:53 | Billing Data ---
Date of Service August 25, 2024 Coding Level of Care Code 48413 SUB INP/OBS CARE
--- NOTE | 2024-08-25 18:53 | Billing Data ---
Date of Service August 25, 2024 Coding Level of Care Code 45218 SUB INP/OBS CARE
--- NOTE | 2024-08-26 06:47 | Hospitalist Progress Note ---
Date of Service August 26, 2024 Assessment & Plan (1) Generalized weakness: Plan: likely multifactorial in the setting of DLBCL, prior CHOP chemotherapy and current abdominal radiation, suspected UTI, and COVID - PT/OT to continue to evaluate and treat: last recommending home health long term and PT 08/22/24 - continue fall precautions, PT while inpatient (2) Low hemoglobin: Plan: s/p transfusion 1U on 08/21/24 and 08/24/24 - Hgb remaining stable: 9.7 - daily CBC (3) Dysuria: Plan: could be 2/2 to fungal UTI vs radiation cystitis/urethritis - currently treating suspected UTI with fluconazole 200mg daily - if no significant improvement of dysuria and incontinence with continued fluconazole treatment, consider involving urology for cystoscopy - continue pyridium for pain management (4) Acute UTI: Plan: urine culture final result 08/23/24: Yeast "not Sammi albicans/dub" - cefepime continued while levofloxacin is held - restarting pt on fluconazole 200mg as levofloxacin has been held - monitor QT interval - continue pyridium for pain management (5) Diarrhea: Plan: improving due to Lomotil which she has taken at home for diarrhea likely 2/2 abdominal radiation for past 20 weeks - even though no diarrhea overnight into 08/26/24, requesting lomotil to take prophylactically (6) Hypokalemia: Plan: downtrending, 3.8 -> 3.4 pending magnesium level, replete if hypomagnesemia prior to initiating K-riders - 30meg K-riders w/ fluids, d/c infusion with completion of K-riders - BMP in AM (7) B-cell lymphoma: Plan: DLBCL - currently in treatment with abdominal radiation 20wks, withholding radiation this week as she is still under COVID precautions - pancytopenic, s/p CHOP chemotherapy in 2019 - continue prophylactic per [facility] antibiotics with -> Bactrim, acyclovir; currently holding levofloxacin while taking fluconazole for suspected fungal UTI - continue to trend CBC (8) COVID-19: Plan: - noted on respiratory biofire in ED - generalized weakness likely multifactorial, otherwise asymptomatic for URI - COVID precautions (9) HFrEF (heart failure with reduced ejection fraction): Plan: - last TTE : Moderate LV dysfunction. EF 35-40%. Moderate LVH. Severe . Moderate to severe MR. - continue Jardiance, lasix, spironolactone, losartan, carvedilol (10) Coronary artery disease: Plan: Asp held due to Plt count less than 50, restart with improvement of plts (11) Type 2 diabetes mellitus: Plan: - well controlled, last hemoglobin a1c= 5.1 03/17 - continue lantus 40 units qHS, Sliding scale coverage for meals Plan Plan to d/c to [facility] Chronic Stable: HTN: - continue carvedilol, losartan GERD: continue pantoprazole Anxiety: continue ativan 0.5mg HS prn Nausea: continue home zofran, Compazine prn HLD: continue rosuvastatin Chronic Pain: continue home tramadol 50mg q6H prn A-flutter: New onset 07/2023. Cardioversion 09/2023. No documented afib since that time. Eliquis stopped due to GIB- multiple transfusions. Code: Full Diet: DM2 DVT Prophylaxis: SCD, hold chemical due to anemia, history of bleeding, thrombocytopenia Dispo: Med Tele Admission and Anticipated Discharge Date Admission Date: August 21, 2024 Supervising Physician Co-Signing Physician Notes I personally examined the patient and verified all bustillo points of history and exam, discussed case, and agree with decision making with Dr Meek still tired. Discussed urinary and fecal symptoms in depth. Patient expressed good understanding. vitals noted nad heent nc at mmm breathing unlabored no accessory muscles good effort skin no rashes no pallor or icterus Weaknessappears to be multifactorial between lymphoma, radiation treatment, Possible fungal urinary tract infection, and COVIDcontinue supportive care, otherwise as below. Possible fungal UTIversus radiation and/or mass irritation of her bladder and contaminant yeastappreciate infectious disease input. seems to be a situation where we feel obligated to at least treat for now, but at the same time as I am getting to know her situation more, I am much more suspicious that most of her urinary symptoms are from mass effect, possibly radiation, and probably constipation. urinary incontinence - likely as above as well as ?constipation Fecal incontinence After further review, her history, physical exam, and incidentally noted stool on CT scan that was for radiation treatment about 6 weeks ago all fit with constipation and overflow diarrhea. Discussed this with patient in depthshe expresses a good understanding. She is fairly weak, and currently has a lot of supportive care given that she is in the hospitalafter we discussed the risks and benefits of different approaches, we both agreed it made the most sense to just do a partial bowel prep to try to move the backed up stoolwill repeat if needed. And then afterwards would move towards more of a maintenance regimen. Long QTfollow but today down to 482. she has expressed significant frustration with the extremely small size of her room, and given that her QT is lower, and she has shown no arrhythmias, it would be safe to have her off monitor with the risk benefit being that she would be able to move around better and be less deconditioned. Would continue daily EKGs for now possible pressure ulcer of sacral region, stage 3, POA - ongoing local wound care both here and after discharge; as she gets stronger hopefully offloading will be easier to make healing easier as well otherwise as above pharmacologic DVT prophylaxis contraindicated due to severe thrombocytopenia. SCDs ordered anticipate [facility] at discharge Subjective Patient seen and evaluated at bedside, lying down in bed in no apparent distress with breakfast in front of her. Overnight, states she slept well for the most part with no stool incontinence, which she was happy about, but woke up 4-5x with urinary incontinence. This morning, denies any particular discomfort or pain aside from usual burning with urination relived slightly with pyridium. Has been back on fluconazole since yesterday, denies change in urinary symptoms. Endorses her appetite has been low but she has been eating partial meals and drinking fluids. Conveys understanding that we will withhold her abdominal radiation treatment until likely next week when COVID precautions are lifted, provided she continues to clinically improve. Continues to deny any headache, cough, neck pain, dizziness, nausea, vomiting, numbness or tingling in extremities. Denies fever, chest pain, vision changes, SOB at this time. Review of Systems Review of Systems: per HPI Physical Exam Physical Exam: Constitutional: A&Ox3, appearing in no acute distress HEENT: NC/AT, anicteric sclerae, EOM intact Cardiovascular: RRR, +s1/s2, holosystolic murmur best heard in aortic and mitral valve areas, A>M, no rubs/gallops Respiratory: clear to auscultation b/l, fair equal air entry b/l, no wheeze/rales/rhonchi GI: abdomen soft, +BS, mild-moderate tenderness to palpation of suprapubic region, no CVA tenderness Neuro: no facial droop, speech intact MSK: 5/5 strength in all extremities Results & Data Results & Data Vital Signs (Past 12 Hours) Vital Signs Temp Pulse Pulse Resp BP Pulse Ox O2 Del Method 08/26/24 04:08 36.3 C L 60 20 139/77 92 CPAP 08/25/24 23:43 36.8 C 62 20 111/73 92 CPAP 08/25/24 21:55 62 08/25/24 21:30 CPAP 08/25/24 21:26 37.1 C 68 16 100/61 91 Room Air Laboratory Results Abnormal lab results 08/25/24 08/25/24 08/25/24 Range/Units 10:21 12:22 17:13 WBC 2.13 L (4.8-10.8) K/ul RBC 3.42 L (4.20-5.40) M/uL Hgb 10.0 L (12.0-16.0) g/dl Hct 30.7 L (37.0-47.0) % RDW Std Deviation 57.9 H (36.4-46.3) fL RDW Coeff of Shruti 18.2 H (11.5-14.5) % Plt Count 33 L (130-400) K/uL Neut # (Auto) (1.40-6.50) K/uL Lymph # (Auto) 0.05 L (1.20-3.40) K/uL Potassium (3.5-5.1) mmol/L BUN/Creatinine Ratio (10-20) POC Glucose 125 H 104 H (70-99) mg/dl Calcium (8.6-10.3) mg/dl 08/25/24 08/26/24 Range/Units 20:55 07:48 WBC 1.70 L (4.8-10.8) K/ul RBC 3.28 L (4.20-5.40) M/uL Hgb 9.7 L (12.0-16.0) g/dl Hct 29.5 L (37.0-47.0) % RDW Std Deviation 58.3 H (36.4-46.3) fL RDW Coeff of Shruti 17.9 H (11.5-14.5) % Plt Count 37 L (130-400) K/uL Neut # (Auto) 1.28 L (1.40-6.50) K/uL Lymph # (Auto) 0.05 L (1.20-3.40) K/uL Potassium 3.4 L (3.5-5.1) mmol/L BUN/Creatinine Ratio 20.6 H (10-20) POC Glucose 124 H (70-99) mg/dl Calcium 7.6 L (8.6-10.3) mg/dl Resident Activity Tracking Resident Involvement: Resident Care Provided Care Provided: Adult Hospital Medicine
[2024-08-26] MEDS: FLUCONAZOLE 100 MG TAB PO SCH (07:54)
[2024-08-26 08:33] LABS: BUN Creatinine Ratio 20.6 (10-20); Calcium 7.6 mg/dl (8.6-10.3); Creatinine Clr Calc Pharmacy 50.4 ml/min; Potassium 3.4 mmol/L (3.5-5.1)
[2024-08-26 09:33] LABS: Basophils # (auto) 0.01 K/uL (0.00-0.20); Basophils % (auto) 0.6 %; Eosinophils % (auto) 5.9 %; Hematocrit (blood only) 29.5 % (37.0-47.0); Hemoglobin 9.7 g/dl (12.0-16.0); Immature Granulocytes # (auto) 0.02 K/uL (0.01-0.20); Immature Granulocytes % (auto) 1.2 %; Lymphocytes # (auto) 0.05 K/uL (1.20-3.40); Lymphocytes % (auto) 2.9 %; Mean Corpuscular Hemoglobin 29.6 pg (25.0-34.0); Mean Corpuscular Hgb Conc 32.9 g/dL (32.0-36.0); Mean Corpuscular Volume 89.9 fL (80.0-100.0); Mean Platelet Volume 10.7 fL (9.4-12.4); Monocytes # (auto) 0.24 K/uL (0.11-0.59); Monocytes % (auto) 14.1 %; Neutrophils # (auto) 1.28 K/uL (1.40-6.50); Neutrophils % (auto) 75.3 %; Platelet Count 37 K/uL (130-400); RDW Coefficient of Variation 17.9 % (11.5-14.5); RDW Standard Deviation 58.3 fL (36.4-46.3); Red Blood Count 3.28 M/uL (4.20-5.40)
[2024-08-26 10:35] LABS: Magnesium 1.6 mg/dl (1.7-2.4)
[2024-08-26] MEDS: DIPHENOXYLATE/ATROPINE 2.5/0.025MG TAB PO PRN (11:33)
[2024-08-26] MEDS: MAGNESIUM OXIDE 400 MG TAB PO SCH (11:33)
[2024-08-26] MEDS: POTASSIUM CHLORIDE / WTR 10 MEQ/100 ML PLCT IV SCH (11:33)
--- NOTE | 2024-08-26 16:00 | Infectious Disease Progress Nt ---
Date of Service August 26, 2024 Assessment & Plan (1) B-cell lymphoma: (2) Acute UTI: (3) COVID-19: (4) Pancytopenia: Plan This is a 73-year-old female with a history of diffuse large B cell lymphoma (DLBCL) diagnosed 2018, status post CHOP with relapse 03/13/2024 on on polatuzumab , rituximab , bendamustine and radiation, port in place, DM, HLD, CKD, CAD, pacemaker admitted with weakness, fatigue, found to have E coli bacteremia, likely from UTI, completed at 10-day course of antibiotics with ceftriaxone -->high-dose Augmentin. She now presents with progressive weakness of the legs status post falls. She has ongoing urinary and bowel incontinence with abdominal cramping. This has been ongoing since abdominal radiation. She also reports of a cough for about 2 weeks without fevers. She denies nausea, vomiting, headaches, or bloody stools. She denies any issues at the port site. She reports increased dysuria and urinary frequency in the last few days. In the ED temperature 37.4, pulse 67, respiratory rate 16, blood pressure 93/53, 98% on room air labs: WBC 1.46 (ANC 1.15), BUN 9.6, creatinine 29.1, platelets 43, BUN 20, creatinine 0.93. Urinalysis> 50 WBC, 02 RBC, 3-5 epithelial cells, no bacteria seen, yeast present. Urine culture with > 100 K yeast not Sammi albicans/dub. RVP positive for COVID. Chest x-ray with no acute findings. She is on Levaquin, tmp-sulfa and acyclovir prophylaxis. She received a dose of cefepime in the ED. She was noted to have a QTc of 470, then 552. Fluconazole was was not started for yeast in urine as she was also on Levaquin. Recent QTc is 489. ID consulted for funguria in neutropenic patient. Microbiology Urine culture 08/20 100 K yeast, not Sammi albicans/Dub Blood culture 08/20 NGTD Anti- infectives TMP- sulfa ( prophylaxis) -ongoing Levaquin (prophylaxis)held 08/25 Acyclovir (prophylaxisongoing Cefepime 08/20 08/25-ongoing Ceftriaxone Fluconazole 08/25-ongoing # COVID+, on RA # Funguria in immunocompromised #Pancytopenia #Mild neutropenia # Prolonged QTC # Beatriz #Port in place #Relapsed DLBCL on chemo and abdominal radiation #H/o E coli bacteremia 2/2 UTI #Sulfa allergy: nausea #PPM in place # Sp BL TKA Discussion: Patient has chronic urinary symptoms. She does admit to a slightly acute component to her symptoms with more dysuria. Urinalysis and urine culture noted for yeast. Usually yeast in the urine is considered a contaminant and not treated except in some cases. One of the cases where treatment would be recommended is in the case of neutropenia. On admission, she has leukopenia of 1.46 with a mild neutropenia with an ANC. 1.15. She has not had a repeat CBC differential since admission. WBC today 2.13. She is on Levaquin prophylaxis daily and her QTc is somewhat prolonged. Most recent 489. Primary team had some concerns starting fluconazole given her prolonged QTc and synergic effects with Levaquin. Echinocandins, such as Micafungin do not have great efficacy in urinary tract. 08/25 Since we do not have an updated ANC, would treat her funguria for now and repeat ANC to ensure she is no longer neutropenic. Can hold Levaquin and start cefepime instead to decrease synergistic meds that may prolong QTc 08/26 ANC 1.28 ( 1.66) OTc 556 on 08/25 Recommendations Continue Fluconazole 200 mg po daily Monitor EKG daily Continue Cefepime 2 g IV q12 ( on Levaquin for Proph) Continue Acyclovir and tmp-sulfa ppx. Can restart Levaquin PPX once off cefepime ID will continue to follow Jorge Wilson MD, MPH Infectious Disease [facility], ID Division Call [phone] with questions Admission and Anticipated Discharge Date Admission Date: August 21, 2024 Subjective This patient recommendation is based on a telemedicine consult request which was completed asynchronously through chart review and information provided by the primary physician. The patient was not seen or examined today. The evaluation is consultative in nature and all patient care and treatment decisions can either be accepted or rejected by the patient's primary hospital-based treating physician using their own independent medical judgment for their patient. Time Spent Reviewing Chart: 21 - 30 minutes Results & Data Vital Signs (Past 12 Hours) Vital Signs Temp Pulse Pulse Resp BP BP Pulse Ox 08/26/24 14:35 37.2 C 60 16 103/65 92 08/26/24 12:09 36.9 C 64 16 107/71 90 08/26/24 07:57 37.0 C 66 16 110/72 91 08/26/24 07:48 08/26/24 07:17 64 08/26/24 04:08 36.3 C L 60 20 139/77 92 O2 Del Method 08/26/24 14:35 Room Air 08/26/24 12:09 Room Air 08/26/24 07:57 Room Air 08/26/24 07:48 Room Air 08/26/24 07:17 08/26/24 04:08 CPAP Laboratory Results Laboratory Results - last 48 hr 08/24/24 08/24/24 08/24/24 16:06 17:20 20:15 WBC RBC Hgb Hct MCV MCH MCHC RDW Std Deviation RDW Coeff of Shruti Plt Count MPV Immature Gran % (Auto) Neut % (Auto) Lymph % (Auto) Moca % (Auto) Eos % (Auto) Baso % (Auto) Neut # (Auto) Lymph # (Auto) Moca # (Auto) Eos # (Auto) Baso # (Auto) Immature Gran # (Auto) Sodium Potassium Chloride Carbon Dioxide Anion Gap BUN Creatinine Est Cr Clr Drug Dosing eGFR BUN/Creatinine Ratio Glucose POC Glucose 126 H 115 H Calcium Magnesium Blood Type B Positive Antibody Screen NEGATIVE Crossmatch See Detail 08/24/24 08/25/24 08/25/24 21:20 05:22 08:26 WBC 1.54 L RBC 3.50 L Hgb 8.4 L 10.1 L Hct 26.3 L 31.3 L MCV 89.4 MCH 28.9 MCHC 32.3 RDW Std Deviation 56.4 H RDW Coeff of Shruti 17.9 H Plt Count 38 L MPV 11.1 Immature Gran % (Auto) Neut % (Auto) Lymph % (Auto) Moca % (Auto) Eos % (Auto) Baso % (Auto) Neut # (Auto) Lymph # (Auto) Moca # (Auto) Eos # (Auto) Baso # (Auto) Immature Gran # (Auto) Sodium 139 Potassium 3.8 Chloride 107 Carbon Dioxide 25 Anion Gap 7 BUN 21 Creatinine 1.11 Est Cr Clr Drug Dosing 46.4 eGFR 53.14 BUN/Creatinine Ratio 18.9 Glucose 80 POC Glucose 106 H Calcium 7.7 L Magnesium 1.7 Blood Type Antibody Screen Crossmatch 08/25/24 08/25/24 08/25/24 10:21 12:22 17:13 WBC 2.13 L RBC 3.42 L Hgb 10.0 L Hct 30.7 L MCV 89.8 MCH 29.2 MCHC 32.6 RDW Std Deviation 57.9 H RDW Coeff of Shruti 18.2 H Plt Count 33 L MPV 9.8 Immature Gran % (Auto) 1.4 Neut % (Auto) 77.9 Lymph % (Auto) 2.3 Moca % (Auto) 14.6 Eos % (Auto) 3.3 Baso % (Auto) 0.5 Neut # (Auto) 1.66 Lymph # (Auto) 0.05 L Moca # (Auto) 0.31 Eos # (Auto) 0.07 Baso # (Auto) 0.01 Immature Gran # (Auto) 0.03 Sodium Potassium Chloride Carbon Dioxide Anion Gap BUN Creatinine Est Cr Clr Drug Dosing eGFR BUN/Creatinine Ratio Glucose POC Glucose 125 H 104 H Calcium Magnesium Blood Type Antibody Screen Crossmatch 08/25/24 08/26/24 08/26/24 20:55 07:48 08:16 WBC 1.70 L RBC 3.28 L Hgb 9.7 L Hct 29.5 L MCV 89.9 MCH 29.6 MCHC 32.9 RDW Std Deviation 58.3 H RDW Coeff of Shruti 17.9 H Plt Count 37 L MPV 10.7 Immature Gran % (Auto) 1.2 Neut % (Auto) 75.3 Lymph % (Auto) 2.9 Moca % (Auto) 14.1 Eos % (Auto) 5.9 Baso % (Auto) 0.6 Neut # (Auto) 1.28 L Lymph # (Auto) 0.05 L Moca # (Auto) 0.24 Eos # (Auto) 0.10 Baso # (Auto) 0.01 Immature Gran # (Auto) 0.02 Sodium 138 Potassium 3.4 L Chloride 106 Carbon Dioxide 24 Anion Gap 8 BUN 21 Creatinine 1.02 Est Cr Clr Drug Dosing 50.4 eGFR 58.82 BUN/Creatinine Ratio 20.6 H Glucose 82 POC Glucose 124 H 96 Calcium 7.6 L Magnesium 1.6 L Blood Type Antibody Screen Crossmatch 08/26/24 12:21 WBC RBC Hgb Hct MCV MCH MCHC RDW Std Deviation RDW Coeff of Shruti Plt Count MPV Immature Gran % (Auto) Neut % (Auto) Lymph % (Auto) Moca % (Auto) Eos % (Auto) Baso % (Auto) Neut # (Auto) Lymph # (Auto) Moca # (Auto) Eos # (Auto) Baso # (Auto) Immature Gran # (Auto) Sodium Potassium Chloride Carbon Dioxide Anion Gap BUN Creatinine Est Cr Clr Drug Dosing eGFR BUN/Creatinine Ratio Glucose POC Glucose 130 H Calcium Magnesium Blood Type Antibody Screen Crossmatch Diagnostic Findings Microbiology 08/20/24 21:20 Blood Aerobic Blood Culture - Final No growth in Aerobic bottle after 5 days. 08/20/24 21:20 Blood Anaerobic Blood Culture - Final No growth in Anaerobic bottle after 5 days. 08/20/24 22:35 Urine,Clean Catch Urine Culture - Final Yeast not Sammi albicans/dub Medications Administered Home Medications Medication Instructions Recorded Confirmed Last Taken aspirin 81 mg tablet,delayed 81 mg PO HS 10/18/18 08/21/24 5 Days Ago release (Ecotrin Low Strength) ~03/28/24 pen needle, diabetic 31 gauge x #100 ea 05/15/22 08/21/24 Unknown 3/16" (BD Ultra-Fine Mini Pen Needle) albuterol sulfate 90 mcg/actuation 2 puff inhalation Q6H PRN 02/26/23 08/21/24 Unknown aerosol inhaler shortness of breath or wheezing #8.5 grams blood-glucose meter,continuous #3 ea 05/01/23 08/21/24 Unknown (Dexcom G7 Machine Tool Dresser) blood-glucose sensor (Dexcom G7 #9 ea 05/01/23 08/21/24 Unknown Sensor device) conjugated estrogens 0.625 mg/gram See Rx Instructions .Route 03/11/24 08/21/24 2 Months Ago vaginal cream (Premarin) .COMPLEX PRN as needed ~02/01/24 tramadol 50 mg tablet 50 mg PO Q6H PRN pain #20 tabs 03/11/24 08/21/24 2 Days Ago ~03/31/24 docusate sodium 100 mg capsule 100 mg PO DAILY PRN Constipation 04/02/24 08/21/24 04/01/24 20:00 (Colace) polyethylene glycol 3350 17 17 g PO DAILY PRN constipation 04/16/24 08/21/24 Unknown gram/dose oral powder (Miralax) #119 grams bisacodyl 5 mg tablet,delayed 5 mg PO DAILY PRN Constipation 05/07/24 08/21/24 Unknown release ondansetron 8 mg disintegrating 8 mg PO Q8H 05/07/24 08/21/24 Unknown tablet prochlorperazine maleate 10 mg 10 mg PO Q6H PRN Nausea 05/07/24 08/21/24 Unknown tablet (Compazine) lorazepam 0.5 mg tablet 0.5 mg PO HS PRN anxiety #20 tabs 05/08/24 08/21/24 Unknown empagliflozin 10 mg tablet 10 mg PO QAM 05/12/24 08/21/24 05/12/24 09:00 (Jardiance) insulin aspart U-100 100 unit/mL 0 unit subcut TID PRN if premeal 05/12/24 08/21/24 Unknown (3 mL) subcutaneous pen (Novolog blood sugars greater than 250 FlexPen U-100 Insulin aspart) insulin glargine U-300 conc 300 40 unit subcut HS 05/12/24 08/21/24 05/11/24 23:00 unit/mL (1.5 mL) subcutaneous pen (Toujeo SoloStar U-300 Insulin) sennosides 8.6 mg tablet 8.6 mg PO DAILY PRN Diarrhea 05/12/24 08/21/24 Unknown miscellaneous medical supply #1 ea 05/13/24 08/21/24 Unknown potassium chloride 20 mEq 20 meq PO BID #60 tabs 05/17/24 08/21/24 Unknown tablet,extended release(part/cryst) acyclovir 400 mg tablet 400 mg PO BID #60 tabs 06/06/24 08/21/24 Unknown pantoprazole 40 mg tablet,delayed 40 mg PO DAILY 06/10/24 08/21/24 Unknown release metformin 1,000 mg tablet 1,000 mg PO BID #180 tabs 06/16/24 08/21/24 Unknown rosuvastatin 20 mg tablet 20 mg PO HS #90 tabs 06/16/24 08/21/24 Unknown levofloxacin 750 mg tablet 750 mg PO DAILY 07/01/24 08/21/24 Unknown losartan 25 mg tablet 25 mg PO QAM #90 tabs 07/01/24 08/21/24 Unknown sulfamethoxazole-trimethoprim 1 tab PO .3XWEEKLY 07/01/24 08/21/24 Unknown [Bactrim] semaglutide 1 mg/dose (4 mg/3 mL) 1 mg (0.75 mL) subcut WK #3 mL 07/03/24 08/21/24 Unknown subcutaneous pen injector (Ozempic) carvedilol 12.5 mg tablet 12.5 mg PO BID #180 tabs 07/15/24 08/21/24 Unknown loratadine 10 mg tablet (Claritin) 10 mg PO DAILY PRN chemo 07/16/24 08/21/24 Unknown loperamide 2 mg capsule 2 mg PO Q6H PRN Diarrhea 08/12/24 08/21/24 Unknown furosemide 40 mg tablet 40 mg PO DAILY 08/18/24 08/21/24 Unknown spironolactone 25 mg tablet 25 mg PO DAILY #30 tabs 08/18/24 08/21/24 Unknown Active Medications Generic Name Dose Route Start Last Admin Trade Name Freq PRN Reason Stop Dose Admin Acetaminophen 1,000 mg 08/23/24 21:21 08/24/24 20:32 Acetaminophen 500 Mg Tab PO 09/22/24 21:20 1,000 mg Q8H PRN Administration Pain Acyclovir 400 mg 08/21/24 09:00 08/26/24 07:53 Acyclovir 400 Mg Tab PO 09/20/24 08:59 400 mg BID MICHELLE Administration Carvedilol 12.5 mg 08/21/24 09:00 08/26/24 07:53 Carvedilol 12.5 Mg Tab PO 09/20/24 08:59 12.5 mg BID MICHELLE Administration Empagliflozin 10 mg 08/21/24 09:00 08/26/24 07:53 Empagliflozin 10 Mg Tab PO 09/20/24 08:59 10 mg QAM MICHELLE Administration Fluconazole 200 mg 08/26/24 09:00 08/26/24 07:54 Fluconazole 100 Mg Tab PO 08/31/24 08:59 200 mg DAILY MICHELLE Administration Furosemide 40 mg 08/21/24 09:00 08/26/24 07:53 Furosemide 40 Mg Tab PO 09/20/24 08:59 40 mg DAILY MICHELLE Administration Cefepime HCl 2,000 mg in 20 mls @ 5 mls/min 08/25/24 15:00 08/26/24 14:50 Maxipime 2000mg IV 08/30/24 14:59 5 mls/min Q12H MICHELLE Administration Protocol Insulin Aspart 0 units 08/21/24 07:30 08/26/24 12:31 Insulin Aspart Per Unit Charge SC 09/20/24 07:29 Not Given ACHS MICHELLE Insulin Glargine 40 units 08/21/24 21:00 08/25/24 21:35 Lantus Per Unit Charge SQ 09/20/24 20:59 Not Given HS MICHELLE Levofloxacin 750 mg 08/21/24 09:00 08/25/24 08:33 Levofloxacin 750 Mg Tab PO 09/20/24 08:59 750 mg DAILY MICHELLE Administration Protocol Lorazepam 0.5 mg 08/21/24 02:22 08/24/24 20:49 Lorazepam 0.5 Mg Tab PO 09/20/24 02:21 0.5 mg HS PRN Administration anxiety Losartan Potassium 25 mg 08/21/24 09:00 08/26/24 07:53 Losartan Potassium 25 Mg Tab PO 09/20/24 08:59 25 mg QAM MICHELLE Administration Magnesium Oxide 400 mg 08/26/24 11:05 08/26/24 11:33 Magnesium Oxide 400 Mg Tab PO 08/28/24 11:04 400 mg QAM MICHELLE Administration Melatonin 3 mg 08/21/24 02:15 08/24/24 20:31 Melatonin 3 Mg Tab PO 09/20/24 02:14 3 mg HS PRN Administration Sleep Pantoprazole Sodium 40 mg 08/21/24 09:00 08/26/24 07:53 Pantoprazole 40 Mg Tab PO 09/20/24 08:59 40 mg DAILY MICHELLE Administration Potassium Chloride 20 meq 08/21/24 09:00 08/26/24 07:51 Potassium Chloride Crtab 20 Meq Tabcr PO 09/20/24 08:59 Not Given BID MICHELLE Prochlorperazine 10 mg 08/21/24 02:22 08/24/24 20:45 Prochlorperazine Maleate 10 Mg Tab PO 09/20/24 02:21 10 mg Q6H PRN Administration Nausea Rosuvastatin Calcium 20 mg 08/21/24 21:00 08/25/24 21:32 Rosuvastatin Calcium 20 Mg Tab PO 09/20/24 20:59 20 mg HS MICHELLE Administration Spironolactone 25 mg 08/21/24 09:00 08/26/24 07:54 Spironolactone 25 Mg Tab PO 09/20/24 08:59 25 mg DAILY MICHELLE Administration Trimethoprim/Sulfamethoxazole 1 tab 08/22/24 09:00 08/25/24 08:32 Sulfamethoxazole/Trimethoprim Ds 800/160mg Tab PO 09/21/24 08:59 1 tab [id number] MICHELLE Administration Vibegron 75 mg 08/21/24 09:00 08/26/24 07:54 Vibegron 75 Mg Tab PO 09/20/24 08:59 75 mg DAILY MICHELLE Administration
[2024-08-26] MEDS: POLYETHYLENE (MIRALAX) 17 GM PACK PO ONE (16:31)
--- NOTE | 2024-08-26 18:48 | Billing Data ---
Date of Service August 26, 2024 Coding Level of Care Code 77793 SUB INP/OBS CARE
--- NOTE | 2024-08-26 18:49 | Billing Data ---
Date of Service August 26, 2024 Coding Level of Care Code 44633 SUB INP/OBS CARE
[2024-08-26] MEDS: PHENAZOPYRIDINE HCL 200 MG TAB PO PRN (22:22)
[2024-08-27 05:54] LABS: Eosinophils # (auto) 0.11 K/uL (0.00-0.50); Eosinophils % (auto) 5.5 %; Hematocrit (blood only) 27.6 % (37.0-47.0); Hemoglobin 8.8 g/dl (12.0-16.0); Immature Granulocytes # (auto) 0.03 K/uL (0.01-0.20); Immature Granulocytes % (auto) 1.5 %; Lymphocytes # (auto) 0.05 K/uL (1.20-3.40); Lymphocytes % (auto) 2.5 %; Mean Corpuscular Hemoglobin 28.9 pg (25.0-34.0); Mean Corpuscular Hgb Conc 31.9 g/dL (32.0-36.0); Mean Corpuscular Volume 90.8 fL (80.0-100.0); Mean Platelet Volume 10.9 fL (9.4-12.4); Monocytes # (auto) 0.31 K/uL (0.11-0.59); Monocytes % (auto) 15.5 %; Platelet Count 33 K/uL (130-400); RDW Coefficient of Variation 18.1 % (11.5-14.5); RDW Standard Deviation 58.9 fL (36.4-46.3); Red Blood Count 3.04 M/uL (4.20-5.40)
[2024-08-27 06:11] LABS: BUN Creatinine Ratio 21.4 (10-20); Calcium 7.4 mg/dl (8.6-10.3); Creatinine Clr Calc Pharmacy 52.4 ml/min; Magnesium 1.6 mg/dl (1.7-2.4); Potassium 3.5 mmol/L (3.5-5.1)
--- NOTE | 2024-08-27 06:44 | Hospitalist Progress Note ---
Date of Service August 27, 2024 Assessment & Plan (1) Generalized weakness: Plan: likely multifactorial in the setting of DLBCL, prior CHOP chemotherapy and current abdominal radiation, suspected UTI, and COVID - PT/OT to continue to evaluate and treat: last recommending home health [facility] and PT 08/22/24 - continue fall precautions, PT while inpatient (2) Overflow diarrhea: Plan: given 5 capfuls of Miralax on 08/26/24 - passed a small amount of loose stool morning of 08/27/24 ordered Golytely with usual instructions: 240mL PO q10min until 4L consumed OR rectal effluent is clear (3) Dysuria: Plan: could be 2/2 to fungal UTI vs radiation cystitis/urethritis - currently treating suspected UTI with fluconazole 200mg daily - if no significant improvement of dysuria and incontinence with continued fluconazole treatment, consider involving urology for cystoscopy - continue pyridium for pain management (4) Low hemoglobin: Plan: s/p transfusion 1U on 08/21/24 and 08/24/24 - Hgb slightly downtrendin.8 - daily CBC (5) Acute UTI: Plan: urine culture final result 08/23/24: Yeast "not Sammi albicans/dub" - cefepime continued while levofloxacin is held - restarting pt on fluconazole 200mg as levofloxacin has been held - monitor QT interval - continue pyridium for pain management (6) Hypokalemia: Plan: 3.4 -> 3.5 after given 30meq day prior - BMP in AM (7) B-cell lymphoma: Plan: DLBCL - currently in treatment with abdominal radiation 20wks, withholding radiation this week as she is still under COVID precautions - pancytopenic, s/p CHOP chemotherapy in 2019 - continue prophylactic per [facility] antibiotics with -> Bactrim, acyclovir; currently holding levofloxacin while taking fluconazole for suspected fungal UTI - continue to trend CBC (8) COVID-19: Plan: - noted on respiratory biofire in ED - generalized weakness likely multifactorial, otherwise asymptomatic for URI - COVID precautions (9) HFrEF (heart failure with reduced ejection fraction): Plan: - last TTE : Moderate LV dysfunction. EF 35-40%. Moderate LVH. Severe . Moderate to severe MR. - continue Jardiance, lasix, spironolactone, losartan, carvedilol (10) Coronary artery disease: Plan: Asp held due to Plt count less than 50, restart with improvement of plts (11) Type 2 diabetes mellitus: Plan: - well controlled, last hemoglobin a1c= 5.1 03/17 - continue lantus 40 units qHS, Sliding scale coverage for meals Plan Plan to d/c to [facility] once medically stable Chronic Stable: HTN: - continue carvedilol, losartan GERD: continue pantoprazole Anxiety: continue ativan 0.5mg HS prn Nausea: continue home zofran, Compazine prn HLD: continue rosuvastatin Chronic Pain: continue home tramadol 50mg q6H prn A-flutter: New onset 07/2023. Cardioversion 09/2023. No documented afib since that time. Eliquis stopped due to GIB- multiple transfusions. Code: Full Diet: DM2 DVT Prophylaxis: SCD, hold chemical due to anemia, history of bleeding, thrombocytopenia Dispo: Med Tele Admission and Anticipated Discharge Date Admission Date: August 21, 2024 Supervising Physician Co-Signing Physician Notes I personally examined the patient and verified all bustillo points of history and exam, discussed case, and agree with decision making with Dr Meek Notes that while she had a little bit of diarrhea, not much of any bowel movements of significanceafter 85 g of MiraLAX yesterday afternoon vitals noted nad heent nc at mmm breathing unlabored no accessory muscles good effort skin no rashes no pallor or icterus Weaknessappears to be multifactorial between lymphoma, radiation treatment, Possible fungal urinary tract infection, and COVIDcontinue supportive care, otherwise as below. Possible fungal UTIversus radiation and/or mass irritation of her bladder and contaminant yeastappreciate infectious disease input. seems to be a situation where we feel obligated to at least treat for now, but at the same time as I am getting to know her situation more, I am much more suspicious that most of her urinary symptoms are from mass effect, possibly radiation, and probably constipation. continue current care for now urinary incontinence - likely as above as well as ?constipation Fecal incontinence After further review, her history, physical exam, and incidentally noted stool on CT scan that was for radiation treatment about 6 weeks ago all fit with constipation and overflow diarrhea. Discussed this with patient in depthshe expresses a good understanding. She is fairly weak, and currently has a lot of supportive care given that she is in the hospitalafter we discussed the risks and benefits of different approaches, we both agreed it made the most sense to manage the initial phase of this yeartook 85 g of MiraLAX yesterday with very minimal resultslargely confirming the diagnosis based on her lack of bowel movement with a fairly sizable amount of MiraLAXbowel prep today until stools are thin and more or less clear. And then afterwards would move towards more of a maintenance regimen. Long QTfollow but today down to 493. she has expressed significant frustration with the extremely small size of her room, and given that her QT is lower, and she has shown no arrhythmias, it would be safe to have her off monitor with the risk benefit being that she would be able to move around better and be less deconditioned. Would continue daily EKGs for now, but also less concerning given that him not sure how reliable her QT interval will be with her AV pacing and clinically she appears well possible pressure ulcer of sacral region, stage 3, POA - ongoing local wound care both here and after discharge; as she gets stronger hopefully offloading will be easier to make healing easier as well otherwise as above pharmacologic DVT prophylaxis contraindicated due to severe thrombocytopenia. SCDs ordered anticipate [facility] at discharge Subjective Patient seen and evaluated at bedside, sitting in chair in no apparent distress. Overnight, she had one rather small bowel movement after taking 5 capfuls of miralax prior evening. Also notes about 4 episodes of urinary incontinence, and that burning pain with urination has decreased slightly. This morning, denies any particular discomfort or pain aside from the above. Endorses her appetite has been a bit better this morning. States she would like an enema since the miralax didn't help much, but was amenable to seeing if it just takes a bit longer to kick in as we wouldn't want to overdo it. Continues to deny any headache, cough, neck pain, dizziness, nausea, vomiting, numbness or tingling in extremities. Denies fever, chest pain, vision changes, SOB at this time. Review of Systems Review of Systems: per HPI Physical Exam Physical Exam: Constitutional: A&Ox3, appearing in no acute distress HEENT: NC/AT, anicteric sclerae, EOM intact Cardiovascular: RRR, +s1/s2, holosystolic murmur best heard in aortic and mitral valve areas, A>M, no rubs/gallops Respiratory: clear to auscultation b/l, fair equal air entry b/l, no wheeze/ rales/rhonchi GI: abdomen soft, +BS, mild tenderness to palpation of suprapubic region, no CVA tenderness Neuro: no facial droop, speech intact MSK: 5/5 strength in all extremities Results & Data Results & Data Vital Signs (Past 12 Hours) Vital Signs Temp Pulse Resp BP BP Pulse Ox O2 Del Method 08/27/24 03:28 36.4 C L 61 16 116/74 91 Room Air 08/26/24 23:13 36.9 C 59 L 16 112/73 92 Room Air 08/26/24 21:45 Room Air 08/26/24 19:57 37.1 C 60 16 90/56 L 91 Room Air Laboratory Results Abnormal lab results 08/26/24 08/27/24 Range/Units 20:12 05:22 WBC 2.00 L (4.8-10.8) K/ul RBC 3.04 L (4.20-5.40) M/uL Hgb 8.8 L (12.0-16.0) g/dl Hct 27.6 L (37.0-47.0) % MCHC 31.9 L (32.0-36.0) g/dL RDW Std Deviation 58.9 H (36.4-46.3) fL RDW Coeff of Shruti 18.1 H (11.5-14.5) % Plt Count 33 L (130-400) K/uL Lymph # (Auto) 0.05 L (1.20-3.40) K/uL Sodium 135 L (136-145) mmol/L BUN/Creatinine Ratio 21.4 H (10-20) POC Glucose 138 H (70-99) mg/dl Calcium 7.4 L (8.6-10.3) mg/dl Magnesium 1.6 L (1.7-2.4) mg/dl Resident Activity Tracking Resident Involvement: Resident Care Provided Care Provided: Adult Hospital Medicine
--- NOTE | 2024-08-27 09:43 | Electrocardiogram Report ---
Test Reason : Blood Pressure : */* mmHG Vent. Rate : 66 BPM Atrial Rate : 66 BPM P-R Int : 220 ms QRS Dur : 144 ms QT Int : 460 ms P-R-T Axes : 73 113 -61 degrees QTcB Int : 482 ms AV dual-paced rhythm with prolonged AV conduction with occasional ventricular-paced complexes and Pre mature atrial complexes Abnormal ECG When compared with ECG of 25-Aug-2024 14:12, Premature atrial complexes are now Present Vent. rate has increased by 4 bpm Confirmed by Hudson Hsu ([id number]) on 08/27/2024 9:42:51 AM Referred By: REFERRED SELF Confirmed By: Hudson Hsu
--- NOTE | 2024-08-27 09:58 | Electrocardiogram Report ---
Test Reason : Blood Pressure : */* mmHG Vent. Rate : 63 BPM Atrial Rate : 63 BPM P-R Int : 222 ms QRS Dur : 152 ms QT Int : 482 ms P-R-T Axes : * 120 -43 degrees QTcB Int : 493 ms AV dual-paced rhythm with prolonged AV conduction with occasional Premature ventricular complexes Abnormal ECG When compared with ECG of 26-Aug-2024 16:10, (unconfirmed) Premature ventricular complexes are now Present Premature atrial complexes are no longer Present Vent. rate has decreased by 3 bpm Confirmed by Hudson Hsu ([id number]) on 08/27/2024 9:57:36 AM Referred By: REFERRED SELF Confirmed By: Hudson Hsu
[2024-08-27] MEDS: LAVAGE SOLUTION 4000ML PO SCH (14:36)
--- NOTE | 2024-08-27 16:55 | Billing Data ---
Date of Service August 27, 2024 Coding Level of Care Code 62722 SUB INP/OBS CARE
--- NOTE | 2024-08-27 17:41 | Infectious Disease Progress Nt ---
Date of Service August 27, 2024 Assessment & Plan (1) B-cell lymphoma: (2) Acute UTI: (3) COVID-19: (4) Pancytopenia: Plan This is a 73-year-old female with a history of diffuse large B cell lymphoma (DLBCL) diagnosed 2018, status post CHOP with relapse 03/13/2024 on on polatuzumab , rituximab , bendamustine and radiation, port in place, DM, HLD, CKD, CAD, pacemaker admitted with weakness, fatigue, found to have E coli bacteremia, likely from UTI, completed at 10-day course of antibiotics with ceftriaxone -->high-dose Augmentin. She now presents with progressive weakness of the legs status post falls. She has ongoing urinary and bowel incontinence with abdominal cramping. This has been ongoing since abdominal radiation. She also reports of a cough for about 2 weeks without fevers. She denies nausea, vomiting, headaches, or bloody stools. She denies any issues at the port site. She reports increased dysuria and urinary frequency in the last few days. In the ED temperature 37.4, pulse 67, respiratory rate 16, blood pressure 93/53, 98% on room air labs: WBC 1.46 (ANC 1.15), BUN 9.6, creatinine 29.1, platelets 43, BUN 20, creatinine 0.93. Urinalysis> 50 WBC, 02 RBC, 3-5 epithelial cells, no bacteria seen, yeast present. Urine culture with > 100 K yeast not Sammi albicans/dub. RVP positive for COVID. Chest x-ray with no acute findings. She is on Levaquin, tmp-sulfa and acyclovir prophylaxis. She received a dose of cefepime in the ED. She was noted to have a QTc of 470, then 552. Fluconazole was was not started for yeast in urine as she was also on Levaquin. Recent QTc is 489. ID consulted for funguria in neutropenic patient. Microbiology Urine culture 08/20 100 K yeast, not Sammi albicans/Dub Blood culture 08/20 NGTD Anti- infectives TMP- sulfa ( prophylaxis) -ongoing Levaquin (prophylaxis)held 08/25 Acyclovir (prophylaxisongoing Cefepime 08/20 08/25-ongoing Ceftriaxone Fluconazole 08/25-ongoing # COVID+, on RA # Funguria in immunocompromised/ neutropenic pt #Pancytopenia #Mild neutropenia # Prolonged QTC # Beatriz #Port in place #Relapsed DLBCL on chemo and abdominal radiation #H/o E coli bacteremia 2/2 UTI #Sulfa allergy: nausea #PPM in place # Sp BL TKA Discussion: Patient has chronic urinary symptoms. She does admit to a slightly acute component to her symptoms with more dysuria. Urinalysis and urine culture noted for yeast. in asymptomatic, immunocompetent adults yeast in the urine is considered a contaminant and not treated. However in case of symptomatic and or Neutropenic patient , treatment is recommended. Untreated and neutropenic at risk for disseminated candidiasis. On admission, she had leukopenia of 1.46 with a mild neutropenia with an ANC 1.15. She is on Levaquin prophylaxis daily and her QTc is somewhat prolonged. Primary team initially had some concerns on starting fluconazole given her prolonged QTc and synergic effects with Levaquin. Echinocandins, such as Micafungin do not have great efficacy in urinary tract. Qtc 489 08/25 Need updated ANC, would treat her funguria for now and repeat ANC to ensure she is no longer neutropenic. Can hold Levaquin and start cefepime instead to decrease synergistic meds that may prolong QTc / ANC 1.28 ( 1.66) OTc 556 on 08/25 12/ ANC 1.5 Recommendations . Continue Fluconazole 200 mg po daily ( day # 3). Tentatively Plan for 2 weeks for funguria/cystitis in neutropenic /immunocompromised pt. If ANC continues to improve and remains >1500 and QTc becomes more prolonged, can consider discontinuation of fluconazole at 7 days. Monitor EKG every other day Continue Cefepime 2 g IV q12 ( on Levaquin for Proph) Continue Acyclovir and tmp-sulfa ppx. Can restart Levaquin PPX once off cefepime ID will follow . Jorge Wilson MD, MPH Infectious Disease [facility], ID [facility] Call [phone] with questions Admission and Anticipated Discharge Date Admission Date: August 21, 2024 Subjective This patient recommendation is based on a telemedicine consult request which was completed asynchronously through chart review and information provided by the primary physician. The patient was not seen or examined today. The evaluation is consultative in nature and all patient care and treatment decisions can either be accepted or rejected by the patient's primary hospital-based treating physician using their own independent medical judgment for their patient. Time Spent Reviewing Chart: 21 - 30 minutes Afebrile WBC 2 ANC 1.5 Results & Data Vital Signs (Past 12 Hours) Vital Signs Temp Pulse Resp BP BP Pulse Ox O2 Del Method 08/27/24 17:00 36.2 C L 64 16 95/64 L 94 Room Air 08/27/24 12:00 36.4 C L 71 16 111/66 93 Room Air 08/27/24 10:17 Room Air 08/27/24 07:30 36.5 C 72 16 113/56 L 92 Room Air Laboratory Results Short CBC 08/27/24 Range/Units 05:22 WBC 2.00 L (4.8-10.8) K/ul Hgb 8.8 L (12.0-16.0) g/dl Hct 27.6 L (37.0-47.0) % Plt Count 33 L (130-400) K/uL BMP 08/27/24 05:22 Sodium 135 L Potassium 3.5 Chloride 106 Carbon Dioxide 23 BUN 21 Creatinine 0.98 Glucose 85 Calcium 7.4 L Diagnostic Findings Microbiology 08/20/24 21:20 Blood Aerobic Blood Culture - Final No growth in Aerobic bottle after 5 days. 08/20/24 21:20 Blood Anaerobic Blood Culture - Final No growth in Anaerobic bottle after 5 days. 08/20/24 22:35 Urine,Clean Catch Urine Culture - Final Yeast not Sammi albicans/dub Medications Administered Home Medications Medication Instructions Recorded Confirmed Last Taken aspirin 81 mg tablet,delayed 81 mg PO HS 10/18/18 08/21/24 5 Days Ago release (Ecotrin Low Strength) ~03/28/24 pen needle, diabetic 31 gauge x #100 ea 05/15/22 08/21/24 Unknown 12/07" (BD Ultra-Fine Mini Pen Needle) albuterol sulfate 90 mcg/actuation 2 puff inhalation Q6H PRN 02/26/23 08/21/24 Unknown aerosol inhaler shortness of breath or wheezing #8.5 grams blood-glucose meter,continuous #3 ea 05/01/23 08/21/24 Unknown (Dexcom G7 [employer]) blood-glucose sensor (Dexcom G7 #9 ea 05/01/23 08/21/24 Unknown Sensor device) conjugated estrogens 0.625 mg/gram See Rx Instructions .Route 03/11/24 08/21/24 2 Months Ago vaginal cream (Premarin) .COMPLEX PRN as needed ~02/01/24 tramadol 50 mg tablet 50 mg PO Q6H PRN pain #20 tabs 03/11/24 08/21/24 2 Days Ago ~03/31/24 docusate sodium 100 mg capsule 100 mg PO DAILY PRN Constipation 04/02/24 08/21/24 04/01/24 20:00 (Colace) polyethylene glycol 3350 17 17 g PO DAILY PRN constipation 04/16/24 08/21/24 Unknown gram/dose oral powder (Miralax) #119 grams bisacodyl 5 mg tablet,delayed 5 mg PO DAILY PRN Constipation 05/07/24 08/21/24 Unknown release ondansetron 8 mg disintegrating 8 mg PO Q8H 05/07/24 08/21/24 Unknown tablet prochlorperazine maleate 10 mg 10 mg PO Q6H PRN Nausea 05/07/24 08/21/24 Unknown tablet (Compazine) lorazepam 0.5 mg tablet 0.5 mg PO HS PRN anxiety #20 tabs 05/08/24 08/21/24 Unknown empagliflozin 10 mg tablet 10 mg PO QAM 05/12/24 08/21/24 05/12/24 09:00 (Jardiance) insulin aspart U-100 100 unit/mL 0 unit subcut TID PRN if premeal 05/12/24 08/21/24 Unknown (3 mL) subcutaneous pen (Novolog blood sugars greater than 250 FlexPen U-100 Insulin aspart) insulin glargine U-300 conc 300 40 unit subcut HS 05/12/24 08/21/24 05/11/24 23:00 unit/mL (1.5 mL) subcutaneous pen (Toujeo SoloStar U-300 Insulin) sennosides 8.6 mg tablet 8.6 mg PO DAILY PRN Diarrhea 05/12/24 08/21/24 Unknown miscellaneous medical supply #1 ea 05/13/24 08/21/24 Unknown potassium chloride 20 mEq 20 meq PO BID #60 tabs 05/17/24 08/21/24 Unknown tablet,extended release(part/cryst) acyclovir 400 mg tablet 400 mg PO BID #60 tabs 06/06/24 08/21/24 Unknown pantoprazole 40 mg tablet,delayed 40 mg PO DAILY 06/10/24 08/21/24 Unknown release metformin 1,000 mg tablet 1,000 mg PO BID #180 tabs 06/16/24 08/21/24 Unknown rosuvastatin 20 mg tablet 20 mg PO HS #90 tabs 06/16/24 08/21/24 Unknown levofloxacin 750 mg tablet 750 mg PO DAILY 07/01/24 08/21/24 Unknown losartan 25 mg tablet 25 mg PO QAM #90 tabs 07/01/24 08/21/24 Unknown sulfamethoxazole-trimethoprim 1 tab PO .3XWEEKLY 07/01/24 08/21/24 Unknown [Bactrim] semaglutide 1 mg/dose (4 mg/3 mL) 1 mg (0.75 mL) subcut WK #3 mL 07/03/24 08/21/24 Unknown subcutaneous pen injector (Ozempic) carvedilol 12.5 mg tablet 12.5 mg PO BID #180 tabs 07/15/24 08/21/24 Unknown loratadine 10 mg tablet (Claritin) 10 mg PO DAILY PRN chemo 07/16/24 08/21/24 Unknown loperamide 2 mg capsule 2 mg PO Q6H PRN Diarrhea 08/12/24 08/21/24 Unknown furosemide 40 mg tablet 40 mg PO DAILY 08/18/24 08/21/24 Unknown spironolactone 25 mg tablet 25 mg PO DAILY #30 tabs 08/18/24 08/21/24 Unknown Active Medications Generic Name Dose Route Start Last Admin Trade Name Kar PRN Reason Stop Dose Admin Acetaminophen 1,000 mg 08/23/24 21:21 08/26/24 22:17 Acetaminophen 500 Mg Tab PO 09/22/24 21:20 1,000 mg Q8H PRN Administration Pain Acyclovir 400 mg 08/21/24 09:00 08/27/24 08:23 Acyclovir 400 Mg Tab PO 09/20/24 08:59 400 mg BID MICHELLE Administration Carvedilol 12.5 mg 08/21/24 09:00 08/27/24 08:24 Carvedilol 12.5 Mg Tab PO 09/20/24 08:59 12.5 mg BID MICHELLE Administration Empagliflozin 10 mg 08/21/24 09:00 08/27/24 08:23 Empagliflozin 10 Mg Tab PO 09/20/24 08:59 10 mg QAM MICHELLE Administration Fluconazole 200 mg 08/26/24 09:00 08/27/24 08:21 Fluconazole 100 Mg Tab PO 08/31/24 08:59 200 mg DAILY MICHELLE Administration Furosemide 40 mg 08/21/24 09:00 08/27/24 08:23 Furosemide 40 Mg Tab PO 09/20/24 08:59 40 mg DAILY MICHELLE Administration Cefepime HCl 2,000 mg in 20 mls @ 5 mls/min 08/25/24 15:00 08/27/24 14:33 Maxipime 2000mg IV 08/30/24 14:59 5 mls/min Q12H MICHELLE Administration Protocol Insulin Glargine 40 units 08/21/24 21:00 08/26/24 22:19 Lantus Per Unit Charge SQ 09/20/24 20:59 Not Given HS MICHELLE Levofloxacin 750 mg 08/21/24 09:00 08/25/24 08:33 Levofloxacin 750 Mg Tab PO 09/20/24 08:59 750 mg DAILY MICHELLE Administration Protocol Lorazepam 0.5 mg 08/21/24 02:22 08/24/24 20:49 Lorazepam 0.5 Mg Tab PO 09/20/24 02:21 0.5 mg HS PRN Administration anxiety Losartan Potassium 25 mg 08/21/24 09:00 08/27/24 08:24 Losartan Potassium 25 Mg Tab PO 09/20/24 08:59 25 mg QAM MICHELLE Administration Magnesium Oxide 400 mg 08/26/24 11:05 08/27/24 08:21 Magnesium Oxide 400 Mg Tab PO 08/28/24 11:04 400 mg QAM MICHELLE Administration Melatonin 3 mg 08/21/24 02:15 08/26/24 22:18 Melatonin 3 Mg Tab PO 09/20/24 02:14 3 mg HS PRN Administration Sleep Pantoprazole Sodium 40 mg 08/21/24 09:00 08/27/24 08:23 Pantoprazole 40 Mg Tab PO 09/20/24 08:59 40 mg DAILY MICHELLE Administration Phenazopyridine HCl 200 mg 08/26/24 15:29 08/27/24 08:21 Phenazopyridine Hcl 200 Mg Tab PO 09/20/24 13:59 200 mg TID PRN Administration Bladder pain Potassium Chloride 20 meq 08/21/24 09:00 08/27/24 08:21 Potassium Chloride Crtab 20 Meq Tabcr PO 09/20/24 08:59 Not Given BID MICHELLE Prochlorperazine 10 mg 08/21/24 02:22 08/24/24 20:45 Prochlorperazine Maleate 10 Mg Tab PO 09/20/24 02:21 10 mg Q6H PRN Administration Nausea Rosuvastatin Calcium 20 mg 08/21/24 21:00 08/26/24 22:19 Rosuvastatin Calcium 20 Mg Tab PO 09/20/24 20:59 20 mg HS MICHELLE Administration Spironolactone 25 mg 08/21/24 09:00 08/27/24 08:21 Spironolactone 25 Mg Tab PO 09/20/24 08:59 25 mg DAILY MICHELLE Administration Trimethoprim/Sulfamethoxazole 1 tab 08/22/24 09:00 08/27/24 08:23 Sulfamethoxazole/Trimethoprim Ds 800/160mg Tab PO 09/21/24 08:59 1 tab [id number] MICHELLE Administration Vibegron 75 mg 08/21/24 09:00 08/27/24 08:22 Vibegron 75 Mg Tab PO 09/20/24 08:59 75 mg DAILY MICHELLE Administration
--- NOTE | 2024-08-28 06:54 | Hospitalist Progress Note ---
Date of Service August 28, 2024 Assessment & Plan (1) Generalized weakness: Plan: likely multifactorial in the setting of DLBCL, prior CHOP chemotherapy and current abdominal radiation, suspected UTI, and COVID - continue fall precautions, PT while inpatient Plan to d/c to [facility] w/ acute rehab tomorrow 08/29/24 (2) Overflow diarrhea: Plan: given Golytely on 08/27/24 with usual instructions: 240mL PO q10min until 4L consumed OR rectal effluent is clear - passed significant amount of stool KUB on 08/28/24 showing mild-moderate stool remaining in colon and rectum - Miralax 17g (1 capful) BID for residual constipation (3) Dysuria: Plan: could be 2/2 to fungal UTI vs radiation cystitis/urethritis - currently treating suspected UTI with fluconazole 200mg daily - continued improvement of burning pain with urination independent of pyridium - continue pyridium for pain management (4) Low hemoglobin: Plan: Hgb appears stable: 9.6 - daily CBC (5) Acute UTI: Plan: urine culture final result 08/23/24: Yeast "not Sammi albicans/dub" - cefepime continued while levofloxacin is held - restarted on fluconazole 200mg, levofloxacin being held - monitor QT interval: 08/28/24 QTcB 468 - continue pyridium for pain management Following ID recommendations as summarized below: - Fluconazole 200 mg po daily (day #4) for total of 2 weeks ; can stop at 7 days if QT becomes prolonged >600 or if ANC remains >1500 - EKG q2d - Cefepime 2g IV q12 while Levaquin is being held; can restart Levaquin once off cefepime - Acyclovir and Bactrim for ppx restart Levaquin PPX once off cefepime (6) Hypokalemia: Plan: stable: 3.7 - BMP in AM (7) B-cell lymphoma: Plan: DLBCL - currently in treatment with abdominal radiation 20wks, withholding radiation this week as she is still under COVID precautions - pancytopenic, s/p CHOP chemotherapy in 2019 - continue prophylactic per cancer care: Bactrim, acyclovir; currently holding levofloxacin while taking fluconazole for suspected fungal UTI, but providing cefepime in its place - continue to trend CBC (8) COVID-19: Plan: - noted on respiratory biofire in ED - generalized weakness likely multifactorial, otherwise asymptomatic for URI - COVID precautions (9) HFrEF (heart failure with reduced ejection fraction): Plan: - last TTE 06/04/24: Moderate LV dysfunction. EF 35-40%. Moderate LVH. Severe . Moderate to severe MR. - continue Jardiance, lasix, spironolactone, losartan, carvedilol (10) Coronary artery disease: Plan: Asp held due to Plt count less than 50, restart with improvement of plts (11) Type 2 diabetes mellitus: Plan: - well controlled, last hemoglobin a1c= 5.1 03/17 - continue lantus 40 units qHS, Sliding scale coverage for meals Plan Plan to d/c to [facility] once medically stable Chronic Stable: HTN: - continue carvedilol, losartan GERD: continue pantoprazole Anxiety: continue ativan 0.5mg HS prn Nausea: continue home zofran, Compazine prn HLD: continue rosuvastatin Chronic Pain: continue home tramadol 50mg q6H prn A-flutter: New onset 07/2023. Cardioversion 09/2023. No documented afib since that time. Eliquis stopped due to GIB- multiple transfusions. Code: Full Diet: DM2 DVT Prophylaxis: SCD, hold chemical due to anemia, history of bleeding, thrombocytopenia Dispo: Med Tele Admission and Anticipated Discharge Date Admission Date: August 21, 2024 Supervising Physician Co-Signing Physician Notes I personally examined the patient and verified all bustillo points of history and exam, discussed case, and agree with decision making with Dr Meek Had a lot of bowel movements after GoLytely prep. Wonders "if it worked" vitals noted nad heent nc at mmm breathing unlabored no accessory muscles good effort skin no rashes no pallor or icterus abdomen mildly distended much softer and no tenderness Weaknessappears to be multifactorial between lymphoma, radiation treatment, Possible fungal urinary tract infection, and COVIDcontinue supportive care, otherwise as below. Possible fungal UTIversus radiation and/or mass irritation of her bladder and contaminant yeastappreciate infectious disease input. seems to be a situation where we feel obligated to at least treat for now, but at the same time as I am getting to know her situation more, I am much more suspicious that most of her urinary symptoms are from mass effect, possibly radiation, and probably constipation. continue current care for now urinary incontinence - likely as above as well as ?constipation Fecal incontinence After further review, her history, physical exam, and incidentally noted stool on CT scan that was for radiation treatment about 6 weeks ago all fit with constipation and overflow diarrhea. Discussed this with patient in depthshe expresses a good understanding. She is fairly weak, and currently has a lot of supportive care given that she is in the hospitalafter we discussed the risks and benefits of different approaches, we both agreed it made the most sense to manage the initial phase of this yeartook 85 g of MiraLAX 2 days ago with very minimal resultslargely confirming the diagnosis based on her lack of bowel movement with a fairly sizable amount of MiraLAX followed with a bowel prep the clinically seems to have improved the situationdiscussed with patient that resolution would largely be clinical followed by rachel asked for an x-ray to see how things were goingdiscussed that largely the follow-up from here would be clinical, but that if it would help her peace of mind is not unreasonablefollow-up x-ray still shows a decent amount of stoolbut as long as her symptoms are improving, we can manage this as more routine constipation as long as her overflow diarrhea/fecal incontinence have now resolved Long QTfollow but today down to 468. Would continue to follow EKGs for now, but also less concerning given that him not sure how reliable her QT interval will be with her AV pacing and clinically she appears well possible pressure ulcer of sacral region, stage 3, POA - ongoing local wound care both here and after discharge; as she gets stronger hopefully offloading will be easier to make healing easier as well otherwise as above pharmacologic DVT prophylaxis contraindicated due to severe thrombocytopenia. [facility] Subjective Patient seen and evaluated at bedside, sitting in chair in no apparent distress. Day prior 08/27/24 she received 4L of Golytely and passed a significant amount of loose stool, but patient endorses it never became totally clear. Overnight, she had one rather small bowel movement after taking 5 capfuls of fabien alax prior evening. Also notes about 4 episodes of urinary incontinence, and that burning pain with urination has decreased slightly. This morning, denies any particular discomfort or pain aside from the above. Endorses her appetite has been improving, especially since she passed stool yesterday. States she is not entirely convinced the Golytely flushed her out, so she's requesting a KUB xr to see if there's remaining stool. Continues to deny any headache, cough, neck pain, dizziness, nausea, vomiting, numbness or tingling in extremities. Denies fever, chest pain, vision changes, SOB at this time. Review of Systems Review of Systems: per HPI Physical Exam Physical Exam: Constitutional: A&Ox3, appearing in no acute distress HEENT: NC/AT, anicteric sclerae, EOM intact Cardiovascular: RRR, +s1/s2, holosystolic murmur best heard in aortic and mitral valve areas, A>M, no rubs/gallops Respiratory: clear to auscultation b/l, fair equal air entry b/l, no wheeze/rales/rhonchi GI: abdomen soft, +BS, mild tenderness to palpation of suprapubic region, no CVA tenderness Neuro: no facial droop, speech intact MSK: 5/5 strength in all extremities Results & Data Results & Data Vital Signs (Past 12 Hours) Vital Signs Temp Pulse Resp BP Pulse Ox O2 Del Method 08/27/24 23:00 36.3 C L 72 16 103/68 93 Room Air 08/27/24 22:40 Room Air 08/27/24 20:01 36.5 C 62 16 136/80 97 Room Air Laboratory Results Abnormal lab results 08/28/24 Range/Units 08:36 WBC 2.61 L (4.8-10.8) K/ul RBC 3.28 L (4.20-5.40) M/uL Hgb 9.6 L (12.0-16.0) g/dl Hct 29.6 L (37.0-47.0) % RDW Std Deviation 61.7 H (36.4-46.3) fL RDW Coeff of Shruti 18.9 H (11.5-14.5) % Plt Count 37 L (130-400) K/uL Lymph # (Auto) 0.07 L (1.20-3.40) K/uL BUN/Creatinine Ratio 22.1 H (10-20) Glucose 111 H (70-99(Fasting)) mg/dl Calcium 8.0 L (8.6-10.3) mg/dl Resident Activity Tracking Resident Involvement: Resident Care Provided Care Provided: Adult [facility] Medicine
[2024-08-28 09:09] LABS: Basophils # (auto) 0.01 K/uL (0.00-0.20); Basophils % (auto) 0.4 %; Eosinophils # (auto) 0.08 K/uL (0.00-0.50); Eosinophils % (auto) 3.1 %; Hematocrit (blood only) 29.6 % (37.0-47.0); Hemoglobin 9.6 g/dl (12.0-16.0); Immature Granulocytes # (auto) 0.02 K/uL (0.01-0.20); Immature Granulocytes % (auto) 0.8 %; Lymphocytes # (auto) 0.07 K/uL (1.20-3.40); Lymphocytes % (auto) 2.7 %; Mean Corpuscular Hemoglobin 29.3 pg (25.0-34.0); Mean Corpuscular Hgb Conc 32.4 g/dL (32.0-36.0); Mean Corpuscular Volume 90.2 fL (80.0-100.0); Mean Platelet Volume 11.4 fL (9.4-12.4); Monocytes # (auto) 0.28 K/uL (0.11-0.59); Monocytes % (auto) 10.7 %; Neutrophils # (auto) 2.15 K/uL (1.40-6.50); Neutrophils % (auto) 82.3 %; Platelet Count 37 K/uL (130-400); RDW Coefficient of Variation 18.9 % (11.5-14.5); RDW Standard Deviation 61.7 fL (36.4-46.3); Red Blood Count 3.28 M/uL (4.20-5.40); White Blood Count 2.61 K/ul (4.8-10.8)
[2024-08-28 09:34] LABS: BUN Creatinine Ratio 22.1 (10-20); Magnesium 1.7 mg/dl (1.7-2.4); Potassium 3.7 mmol/L (3.5-5.1)
--- NOTE | 2024-08-28 11:12 | Infectious Disease Progress Nt ---
Date of Service August 28, 2024 Assessment & Plan (1) B-cell lymphoma: (2) Acute UTI: (3) COVID-19: (4) Pancytopenia: Plan This is a 73-year-old female with a history of diffuse large B cell lymphoma (DLBCL) diagnosed 2018, status post CHOP with relapse 03/13/2024 on on polatuzumab , rituximab , bendamustine and radiation, port in place, DM, HLD, CKD, CAD, pacemaker admitted with weakness, fatigue, found to have E coli bacteremia, likely from UTI, completed at 10-day course of antibiotics with ceftriaxone -->high-dose Augmentin. She now presents with progressive weakness of the legs status post falls. She has ongoing urinary and bowel incontinence with abdominal cramping. This has been ongoing since abdominal radiation. She also reports of a cough for about 2 weeks without fevers. She denies nausea, vomiting, headaches, or bloody stools. She denies any issues at the port site. She reports increased dysuria and urinary frequency in the last few days. In the ED temperature 37.4, pulse 67, respiratory rate 16, blood pressure 93/53, 98% on room air labs: WBC 1.46 (ANC 1.15), BUN 9.6, creatinine 29.1, platelets 43, BUN 20, creatinine 0.93. Urinalysis> 50 WBC, 02 RBC, 3-5 epithelial cells, no bacteria seen, yeast present. Urine culture with > 100 K yeast not Sammi albicans/dub. RVP positive for COVID. Chest x-ray with no acute findings. She is on Levaquin, tmp-sulfa and acyclovir prophylaxis. She received a dose of cefepime in the ED. She was noted to have a QTc of 470, then 552. Fluconazole was was not started for yeast in urine as she was also on Levaquin. Recent QTc is 489. ID consulted for funguria in neutropenic patient. Microbiology Urine culture 08/20 100 K yeast, not Sammi albicans/Dub Blood culture 08/20 NGTD Anti- infectives TMP- sulfa ( prophylaxis) -ongoing Levaquin (prophylaxis)held 08/25 Acyclovir (prophylaxisongoing Cefepime 08/20 08/25-ongoing Ceftriaxone Fluconazole 08/25-ongoing # COVID+, on RA # Funguria in immunocompromised/ neutropenic pt #Pancytopenia #Mild neutropenia, # Prolonged QTC # Beatriz #Port in place #Relapsed DLBCL on chemo and abdominal radiation #H/o E coli bacteremia 2/2 UTI #Sulfa allergy: nausea #PPM in place # Sp BL TKA Discussion: Patient has chronic urinary symptoms. She does admit to a slightly acute component to her symptoms with more dysuria. Urinalysis and urine culture noted for yeast. in asymptomatic, immunocompetent adults yeast in the urine is considered a contaminant and not treated. However in case of symptomatic and or Neutropenic patient , treatment is recommended. Untreated and neutropenic at risk for disseminated candidiasis. On admission, she had leukopenia of 1.46 with a mild neutropenia with an ANC 1.15. She was on Levaquin prophylaxis daily and her QTc is somewhat prolonged. Primary team initially had some concerns on starting fluconazole given her prolonged QTc and synergic effects with Levaquin. Echinocandins, such as Micafungin do not have great efficacy in urinary tract. Qtc 489 She has a PPM 12/2 Need updated ANC, would treat her funguria for now and repeat ANC to ensure she is no longer neutropenic. Can hold Levaquin and start cefepime instead to decrease synergistic meds that may prolong QTc. OTc 556 12/3 ANC 1.28 ( 1.66) QTC 482 12/4 ANC 1.5 QTC 493 12/5 ANC 2.15 QTC 468. Dysuria minimally improved. Complains of golytely she received yesterday Recommendations . Continue Fluconazole 200 mg po daily ( day # 4). Had tentatively Planned for 2 weeks for funguria/cystitis in neutropenic /immunocompromised , however she is no longer neutropenic and dysuria is unchanged. Can consider dc fluconazole after 7 days of therapy. Monitor EKG every other day. but is paced Continue Cefepime 2 g IV q12 ( on Levaquin for Proph) Continue Acyclovir and tmp-sulfa ppx. Can restart Levaquin if only 7 days of Fluconazole on dc. ID will follow . Jorge Wilson MD, MPH Infectious Disease [facility], [facility] Call [phone] with questions Admission and Anticipated Discharge Date Admission Date: August 21, 2024 Subjective Subsequent visit was provided via telemedicine using two-way real-time interactive telecommunication between the patient and the telemedicine provider. For the duration of the visit, the provider was performing the assessment from a different facility than the patient. This includesuse of bluetooth stethoscope forauscultationperformed by the telepresenter that the telemed icine provider can hear if described in the physical exam. [employer] contact information: Please call [facility] Call Center . (Phone Number For Physician Use Only) After establishing a telemedicine visit, patient was: Patient was verified with two unique identifiers Time Spent with Patient: Subsequent => 35 min Afebrile WBC 2.61 ANC 2.15, plts 37 She says she had a rough last 24 hours because she received golytely with lost of BMs Still has dysuria, which she says is chronic Physical Exam Physical Exam: Gen- chronically ill appearing. NAD Neck - supple Chest- RU chest port, No increased work of breathing, On RA, PPM site w/o s/o infection Abd- soft, not tender -no elise, no suprapubic or CVA tenderness Extremities- NO edema Neuro- AAO times 3 Psych- Cooperative, normal mood Results & Data Vital Signs (Past 12 Hours) Vital Signs Temp Pulse Resp BP Pulse Ox O2 Del Method 08/28/24 08:16 36.6 C 63 20 124/75 100 Room Air Laboratory Results Laboratory Results - last 48 hr 08/26/24 08/26/24 08/26/24 12:21 17:21 20:12 WBC RBC Hgb Hct MCV MCH MCHC RDW Std Deviation RDW Coeff of Shruti Plt Count MPV Immature Gran % (Auto) Neut % (Auto) Lymph % (Auto) [place] % (Auto) Eos % (Auto) Baso % (Auto) Neut # (Auto) Lymph # (Auto) [place] # (Auto) Eos # (Auto) Baso # (Auto) Immature Gran # (Auto) Sodium Potassium Chloride Carbon Dioxide Anion Gap BUN Creatinine Est Cr Clr Drug Dosing eGFR BUN/Creatinine Ratio Glucose POC Glucose 130 H 90 138 H Calcium Magnesium 08/27/24 08/27/24 08/28/24 05:22 08:48 08:36 WBC 2.00 L 2.61 L RBC 3.04 L 3.28 L Hgb 8.8 L 9.6 L Hct 27.6 L 29.6 L MCV 90.8 90.2 MCH 28.9 29.3 MCHC 31.9 L 32.4 RDW Std Deviation 58.9 H 61.7 H RDW Coeff of Shruti 18.1 H 18.9 H Plt Count 33 L 37 L MPV 10.9 11.4 Immature Gran % (Auto) 1.5 0.8 Neut % (Auto) 75.0 82.3 Lymph % (Auto) 2.5 2.7 [place] % (Auto) 15.5 10.7 Eos % (Auto) 5.5 3.1 Baso % (Auto) 0.0 0.4 Neut # (Auto) 1.50 2.15 Lymph # (Auto) 0.05 L 0.07 L [place] # (Auto) 0.31 0.28 Eos # (Auto) 0.11 0.08 Baso # (Auto) 0.00 0.01 Immature Gran # (Auto) 0.03 0.02 Sodium 135 L 138 Potassium 3.5 3.7 Chloride 106 106 Carbon Dioxide 23 23 Anion Gap 6 9 BUN 21 21 Creatinine 0.98 0.95 Est Cr Clr Drug Dosing 52.4 53.0 eGFR 61.71 64.05 BUN/Creatinine Ratio 21.4 H 22.1 H Glucose 85 111 H POC Glucose 95 Calcium 7.4 L 8.0 L Magnesium 1.6 L 1.7 Diagnostic Findings Microbiology 08/20/24 21:20 Blood Aerobic Blood Culture - Final No growth in Aerobic bottle after 5 days. 08/20/24 21:20 Blood Anaerobic Blood Culture - Final No growth in Anaerobic bottle after 5 days. 08/20/24 22:35 Urine,Clean Catch Urine Culture - Final Yeast not Sammi albicans/dub Medications Administered Home Medications Medication Instructions Recorded Confirmed Last Taken aspirin 81 mg tablet,delayed 81 mg PO HS 10/18/18 08/21/24 5 Days Ago release (Ecotrin Low Strength) ~03/28/24 pen needle, diabetic 31 gauge x #100 ea 05/15/22 08/21/24 Unknown 3/16" (BD Ultra-Fine Mini Pen Needle) albuterol sulfate 90 mcg/actuation 2 puff inhalation Q6H PRN 02/26/23 08/21/24 Unknown aerosol inhaler shortness of breath or wheezing #8.5 grams blood-glucose meter,continuous #3 ea 05/01/23 08/21/24 Unknown (Dexcom G7 Rn Orthopaedics) blood-glucose sensor (Dexcom G7 #9 ea 05/01/23 08/21/24 Unknown Sensor device) conjugated estrogens 0.625 mg/gram See Rx Instructions .Route 03/11/24 08/21/24 2 Months Ago vaginal cream (Premarin) .COMPLEX PRN as needed ~02/01/24 tramadol 50 mg tablet 50 mg PO Q6H PRN pain #20 tabs 03/11/24 08/21/24 2 Days Ago ~03/31/24 docusate sodium 100 mg capsule 100 mg PO DAILY PRN Constipation 04/02/24 08/21/24 04/01/24 20:00 (Colace) polyethylene glycol 3350 17 17 g PO DAILY PRN constipation 04/16/24 08/21/24 Unknown gram/dose oral powder (Miralax) #119 grams bisacodyl 5 mg tablet,delayed 5 mg PO DAILY PRN Constipation 05/07/24 08/21/24 Unknown release ondansetron 8 mg disintegrating 8 mg PO Q8H 05/07/24 08/21/24 Unknown tablet prochlorperazine maleate 10 mg 10 mg PO Q6H PRN Nausea 05/07/24 08/21/24 Unknown tablet (Compazine) lorazepam 0.5 mg tablet 0.5 mg PO HS PRN anxiety #20 tabs 05/08/24 08/21/24 Unknown empagliflozin 10 mg tablet 10 mg PO QAM 05/12/24 08/21/24 05/12/24 09:00 (Jardiance) insulin aspart U-100 100 unit/mL 0 unit subcut TID PRN if premeal 05/12/24 08/21/24 Unknown (3 mL) subcutaneous pen (Novolog blood sugars greater than 250 FlexPen U-100 Insulin aspart) insulin glargine U-300 conc 300 40 unit subcut HS 05/12/24 08/21/24 05/11/24 23:00 unit/mL (1.5 mL) subcutaneous pen (Toujeo SoloStar U-300 Insulin) sennosides 8.6 mg tablet 8.6 mg PO DAILY PRN Diarrhea 05/12/24 08/21/24 Unknown miscellaneous medical supply #1 ea 05/13/24 08/21/24 Unknown potassium chloride 20 mEq 20 meq PO BID #60 tabs 05/17/24 08/21/24 Unknown tablet,extended release(part/cryst) acyclovir 400 mg tablet 400 mg PO BID #60 tabs 06/06/24 08/21/24 Unknown pantoprazole 40 mg tablet,delayed 40 mg PO DAILY 06/10/24 08/21/24 Unknown release metformin 1,000 mg tablet 1,000 mg PO BID #180 tabs 06/16/24 08/21/24 Unknown rosuvastatin 20 mg tablet 20 mg PO HS #90 tabs 06/16/24 08/21/24 Unknown levofloxacin 750 mg tablet 750 mg PO DAILY 07/01/24 08/21/24 Unknown losartan 25 mg tablet 25 mg PO QAM #90 tabs 07/01/24 08/21/24 Unknown sulfamethoxazole-trimethoprim 1 tab PO .3XWEEKLY 07/01/24 08/21/24 Unknown [Bactrim] semaglutide 1 mg/dose (4 mg/3 mL) 1 mg (0.75 mL) subcut WK #3 mL 07/03/24 08/21/24 Unknown subcutaneous pen injector (Ozempic) carvedilol 12.5 mg tablet 12.5 mg PO BID #180 tabs 07/15/24 08/21/24 Unknown loratadine 10 mg tablet (Claritin) 10 mg PO DAILY PRN chemo 07/16/24 08/21/24 Unknown loperamide 2 mg capsule 2 mg PO Q6H PRN Diarrhea 08/12/24 08/21/24 Unknown furosemide 40 mg tablet 40 mg PO DAILY 08/18/24 08/21/24 Unknown spironolactone 25 mg tablet 25 mg PO DAILY #30 tabs 08/18/24 08/21/24 Unknown Active Medications Generic Name Dose Route Start Last Admin Trade Name Freq PRN Reason Stop Dose Admin Acetaminophen 1,000 mg 08/23/24 21:21 08/26/24 22:17 Acetaminophen 500 Mg Tab PO 09/22/24 21:20 1,000 mg Q8H PRN Administration Pain Acyclovir 400 mg 08/21/24 09:00 08/28/24 08:08 Acyclovir 400 Mg Tab PO 09/20/24 08:59 400 mg BID MICHELLE Administration Carvedilol 12.5 mg 08/21/24 09:00 08/28/24 08:07 Carvedilol 12.5 Mg Tab PO 09/20/24 08:59 12.5 mg BID MICHELLE Administration Empagliflozin 10 mg 08/21/24 09:00 08/28/24 08:11 Empagliflozin 10 Mg Tab PO 09/20/24 08:59 10 mg QAM MICHELLE Administration Fluconazole 200 mg 08/26/24 09:00 08/28/24 08:10 Fluconazole 100 Mg Tab PO 08/31/24 08:59 200 mg DAILY MICHELLE Administration Furosemide 40 mg 08/21/24 09:00 08/28/24 08:11 Furosemide 40 Mg Tab PO 09/20/24 08:59 40 mg DAILY MICHELLE Administration Cefepime HCl 2,000 mg in 20 mls @ 5 mls/min 08/25/24 15:00 08/28/24 02:51 Maxipime 2000mg IV 08/30/24 14:59 5 mls/min Q12H MICHELLE Administration Protocol Insulin Glargine 40 units 08/21/24 21:00 08/27/24 21:30 Lantus Per Unit Charge SQ 09/20/24 20:59 Not Given HS MICHELLE Levofloxacin 750 mg 08/21/24 09:00 08/25/24 08:33 Levofloxacin 750 Mg Tab PO 09/20/24 08:59 750 mg DAILY MICHELLE Administration Protocol Lorazepam 0.5 mg 08/21/24 02:22 08/24/24 20:49 Lorazepam 0.5 Mg Tab PO 09/20/24 02:21 0.5 mg HS PRN Administration anxiety Losartan Potassium 25 mg 08/21/24 09:00 08/28/24 08:11 Losartan Potassium 25 Mg Tab PO 09/20/24 08:59 25 mg QAM MICHELLE Administration Melatonin 3 mg 08/21/24 02:15 08/27/24 21:33 Melatonin 3 Mg Tab PO 09/20/24 02:14 3 mg HS PRN Administration Sleep Pantoprazole Sodium 40 mg 08/21/24 09:00 08/28/24 08:11 Pantoprazole 40 Mg Tab PO 09/20/24 08:59 40 mg DAILY MICHELLE Administration Phenazopyridine HCl 200 mg 08/26/24 15:29 08/28/24 08:09 Phenazopyridine Hcl 200 Mg Tab PO 09/20/24 13:59 200 mg TID PRN Administration Bladder pain Potassium Chloride 20 meq 08/21/24 09:00 08/28/24 08:12 Potassium Chloride Crtab 20 Meq Tabcr PO 09/20/24 08:59 Not Given BID MICHELLE Prochlorperazine 10 mg 08/21/24 02:22 08/24/24 20:45 Prochlorperazine Maleate 10 Mg Tab PO 09/20/24 02:21 10 mg Q6H PRN Administration Nausea Rosuvastatin Calcium 20 mg 08/21/24 21:00 08/27/24 21:30 Rosuvastatin Calcium 20 Mg Tab PO 09/20/24 20:59 20 mg HS MICHELLE Administration Spironolactone 25 mg 08/21/24 09:00 08/28/24 08:09 Spironolactone 25 Mg Tab PO 09/20/24 08:59 25 mg DAILY MICHELLE Administration Trimethoprim/Sulfamethoxazole 1 tab 08/22/24 09:00 08/27/24 08:23 Sulfamethoxazole/Trimethoprim Ds 800/160mg Tab PO 09/21/24 08:59 1 tab [id number] MICHELLE Administration Vibegron 75 mg 08/21/24 09:00 08/28/24 08:08 Vibegron 75 Mg Tab PO 09/20/24 08:59 75 mg DAILY MICHELLE Administration
--- NOTE | 2024-08-28 14:49 | XRay Report ---
KUB CLINICAL HISTORY: retained stool post-golytely COMPARISON STUDY: CT of the abdomen and pelvis 11/02/2023. PET/CT June 25, 2024. FINDINGS: There are prominent gas-filled loops of bowel within the left mid abdomen. A vkem-ri-[id number] amount stool within the colon and rectum is present. There are no urinary calculi. Severe left hip osteoarthritis is incidentally noted. IMPRESSION: 1. Multiple prominent gas-filled loops of bowel within left mid abdomen without convincing evidence f or a bowel obstruction. 2. Lqsm-dv-[id number] amount stool within the colon and rectum. ACT 112: Negative or not required by law. Electronically signed by: Nemesio Tamez M.D. 08/28/2024 2:48 PM
--- NOTE | 2024-08-28 15:14 | Electrocardiogram Report ---
Test Reason : Blood Pressure : */* mmHG Vent. Rate : 65 BPM Atrial Rate : 65 BPM P-R Int : 210 ms QRS Dur : 150 ms QT Int : 450 ms P-R-T Axes : 249 96 -62 degrees QTcB Int : 468 ms Atrial-sensed ventricular-paced rhythm with prolonged AV conduction Abnormal ECG When compared with ECG of 27-Aug-2024 06:20, Premature ventricular complexes are no longer Present Vent. rate has increased by 2 bpm Confirmed by Hudson Hsu ([id number]) on 08/28/2024 3:14:17 PM Referred By: REFERRED SELF Confirmed By: Hudson Hsu
[2024-08-28] MEDS: POLYETHYLENE (MIRALAX) 17 GM PACK PO SCH (16:07)
--- NOTE | 2024-08-28 17:16 | Billing Data ---
Date of Service August 28, 2024 Coding Level of Care Code 47280 SUB INP/OBS CARE
[2024-08-29 03:38] VITALS: O2SAT 94
--- NOTE | 2024-08-29 07:05 | Discharge Summary ---
Date of Service August 29, 2024 Admission HPI Per Admitting Provider 73 year old female with a past medical history of B cell lymphoma, DM2, HTN, CHF, a flutter, CAD presenting with concern for increased weakness. Is currently in treatment for lymphoma- chemo/radiation. Has been feeling overall weak for past few weeks, worse in past couple of days. A few falls at home, denies injury. Does not loose stools with treatments. Over past few days has had dysuria and increase urinary frequency. Denies fever. Denies URI symptoms- cough, congestion. ED Course Significant for: Pancytopenia- WBC= 1.46, Hgb= 9.6, Plts= 43. K= 3. Trop 25-> 25.9. UA + trace blood, LE, nitrite. Resp biofire + COVID. CXR without acute pathology. S/p IV KCl x 20meq. 2g cefepime. Admission Exam Per Admitting Provider Constitutional: well-appearing, no acute distress HEENT: NCAT, no conjunctival injection CV: regular rhythm, no murmur appreciated, extremities well-perfused, no LE edema Resp: CTABL, no wheezes/rales/rhonchi appreciated, no increased work of breathing GI: soft, nondistended, nontender MSK: no gross deformities appreciated Skin: warm, dry, no rash appreciated Neuro: alert, oriented, no focal neurologic deficit appreciated Principal Diagnosis weakness, UTI, COVID Discharge Exam Constitutional: A&Ox3, appearing in no acute distress HEENT: NC/AT, anicteric sclerae, EOM intact Cardiovascular: RRR, +s1/s2, holosystolic murmur best heard in aortic and mitral valve areas, A>M, no rubs/gallops Respiratory: clear to auscultation b/l, fair equal air entry b/l, no wheeze/rales/rhonchi GI: abdomen soft, +BS, mild tenderness to palpation of suprapubic region, no CVA tenderness Neuro: no facial droop, speech intact MSK: 5/5 strength in all extremities Discharge Data Allergies Allergy/AdvReac Type Severity Reaction Status Date / Time cat dander Allergy Intermediate ITCHY Verified 08/18/24 09:27 EYES, SNEEZING, CONGESTION lisinopril Allergy Mild Cough Verified 08/18/24 09:27 Sulfa (Sulfonamide AdvReac Intermediate NAUSEA Verified 08/18/24 09:27 Antibiotics) codeine AdvReac Mild Vomiting Verified 08/18/24 09:27 Consultations 08/20/24 23:59 ED Decision to Admit Stat 08/22/24 19:41 Consult Infectious Diseases Routine Hospital Course (1) Generalized weakness: likely multifactorial in the setting of DLBCL, prior CHOP chemotherapy and current abdominal radiation, suspected UTI, and COVID - continue fall precautions, PT while inpatient Plan to d/c to [facility] w/ acute rehab 08/29/24 (2) Overflow diarrhea: given Golytely on 08/27/24 with usual instructions: 240mL PO q10min until 4L consumed OR rectal effluent is clear - passed significant amount of stool KUB on 08/28/24 showing mild-moderate stool remaining in colon and rectum - Miralax 17g (1 capful) BID for residual constipation - can adjust to 2-5 capfuls depending on how constipated (3) Dysuria: could be 2/2 to fungal UTI vs radiation cystitis/urethritis - currently treating suspected UTI with fluconazole 200mg daily, continue to complete 7-day fluconazole course, ending Sunday08/31/24 - continued improvement of burning pain with urination independent of pyridium - continue pyridium for pain management (4) Low hemoglobin: Hgb appears stable - daily CBC (5) Acute UTI: urine culture final result 08/23/24: Yeast "not Sammi albicans/dub" - continue to complete 7-day fluconazole course, ending Sunday08/31/24; can restart Levaquin tomorrow 08/30/24 - monitor QT interval - continue pyridium for pain management Plan: - Fluconazole 200 mg po daily (day #5) for total of 2 weeks ; can stop at 7 days if QT becomes prolonged >600 or if ANC remains >1500 - EKG q2d - Acyclovir and Bactrim for ppx restart Levaquin tomorrow 08/30/24 (6) Hypokalemia: stable - BMP in AM (7) B-cell lymphoma: DLBCL - currently in treatment with abdominal radiation 20wks, withholding radiation this week as she is still under COVID precautions - pancytopenic, s/p CHOP chemotherapy in 2019 - continue prophylactic per cancer care: Bactrim, acyclovir; Levaquin back on tomorrow 08/30/24 - continue to trend CBC (8) COVID-19: - noted on respiratory biofire in ED 08/20/24 - generalized weakness likely multifactorial, otherwise asymptomatic for URI - COVID precautions can likely be lifted within week of being at SNF (9) HFrEF (heart failure with reduced ejection fraction): - last TTE 06/04/24: Moderate LV dysfunction. EF 35-40%. Moderate LVH. Severe . Moderate to severe MR. - continue Jardiance, lasix, spironolactone, losartan, carvedilol (10) Coronary artery disease: Asp held due to Plt count less than 50, restart with improvement of plts (11) Type 2 diabetes mellitus: - well controlled, last hemoglobin a1c= 5.1 03/17 - continue lantus 40 units qHS, Sliding scale coverage for meals Plan Plan to d/c to [facility] once medically stable Chronic Stable: HTN: - continue carvedilol, losartan GERD: continue pantoprazole Anxiety: continue ativan 0.5mg HS prn Nausea: continue home zofran, Compazine prn HLD: continue rosuvastatin Chronic Pain: continue home tramadol 50mg q6H prn A-flutter: New onset 07/2023. Cardioversion 09/2023. No documented afib since that time. Eliquis stopped due to GIB- multiple transfusions. Code: Full Diet: DM2 DVT Prophylaxis: SCD, hold chemical due to anemia, history of bleeding, thrombocytopenia Dispo: Med Tele Total Time Total Time Spent Total Time Spent (In Minutes): <30 Discharge Plan Discharge Items Patient Disposition: Transfer Snf Fac Reason For Visit: WEAKNESS,UTI,COVID Discharge Diagnosis: weakness, UTI, COVID Activity: Per Instructions section Non-emergency contact: Primary Care Provider and Oncologist Call non-emergency contact if: your symptoms worsen and your pain is not controlled Follow-up/Referrals: Nikki Tom MD [Primary Care Provider] - Diet: Regular Addtl Attending Provider Instructions: You were evaluated and treated at [facility] for weakness, UTI with dysuria (painful urination), and diarrhea. Urinalysis showed that you had a urinary tract infection, and later urine culture showed no bacteria but yeast. Thus, we started you back on fluconazole to help eradicate the infection. We have been holding your Levaquin (levofloxacin) since it raises the chance of having dangerous arrhythmias along with fluconazole, so we wanted you on one fewer of these agents with QT- prolonging properties. Your urinary pain has been managed with pyridium as you take the fluconazole for the infection. Imaging of your abdomen showed that you had a significant amount of stool backed up in your intestines. You presented with diarrhea, which made us initially give you Lomotil among other anti-diarrheal agents, but once we saw it was a phenomenon called "overflow diarrhea" we started you on Miralax. When that didn't work, you were given up to 4L of Golytely, which helped flush out a majority of the backed-up stool. You had a KUB done which showed some residual stool, which we have been treating with Miralax twice a day. you can continue taking Miralax twice a day at baseline, and may adjust to take 2-5 capfuls when you feel you are constipated Regarding your prophylactic antibiotics, we plan to continue holding your Levaquin for about another week as we plan to continue your fluconazole until Sunday08/31/24. You may continue your Bactrim. You may also continue your Zofran (ondansetron) for nausea, but be aware this medication also prolongs QT interval, so you should have every other day EKGs to ensure your QT interval isn't getting too long as this can predispose you to dangerous arrhythmias. PT has also been working with you to help you regain your strength, and it seems you have clinically improved to the point where you can be discharged to a fpc facility and undergo acute rehab with PT to continue regaining your strength as you manage your chronic conditions. Please follow up with your PCP and oncologist soon so they can continue to manage and keep an eye on your chronic and acute conditions. You should be able to resume abdominal radiation next week since COVID precautions should be lifted by then. Pending Studies at Discharge: No Stand-Alone Forms: My [facility] Skilled Items Patient informed of condition?: Yes DNR: No Discharge Level of Care: Skilled Communicable Disease: Yes (COVID dx on 08/20/24 - asymptomatic) Discharge Prognosis: Stable Lines: Peripheral IV Urinary Catheter: No Medications and DC Order Prescriptions: New phenazopyridine [Pyridium] 200 mg Tablet 200 mg PO TID PRN (Reason: pain) 7 Days Qty: 21 1RF Gemtesa 75 mg Tablet 75 mg PO DAILY 30 Days Qty: 30 0RF fluconazole 200 mg tablet 200 mg PO DAILY 2 Days Qty: 2 0RF Rx Instructions: take one tablet daily on Thursday 08/30 and Friday 08/31, which will complete the 7-day course started at [facility] Continued (DME) pen needle, diabetic [BD Ultra-Fine Mini Pen Needle] 31 gauge x 3/16" needle See Dose Instructions .ROUTE .MEDSUPPLY Qty: 100 4RF Dose Instruction: As directed Rx Instructions: Use as directed polyethylene glycol 3350 [Miralax] 17 gram/dose powder 17 g PO DAILY PRN (Reason: constipation) Qty: 119 0RF lorazepam 0.5 mg tablet 0.5 mg PO HS PRN (Reason: anxiety) Qty: 20 0RF (DME) miscellaneous medical supply [facility] See Rx Instructions .ROUTE .MEDSUPPLY Qty: 1 0RF Rx Instructions: Stair Lift C85.9 acyclovir 400 mg tablet 400 mg PO BID Qty: 60 0RF metformin 1,000 mg tablet 1,000 mg PO BID Qty: 180 0RF rosuvastatin 20 mg tablet 20 mg PO HS Qty: 90 0RF Ozempic 1 mg/dose (4 mg/3 mL) pen injector 1 mg subcut WK Qty: 3 1RF Rx Instructions: Q Fri carvedilol 12.5 mg tablet 12.5 mg PO BID Qty: 180 3RF Rx Instructions: must administer with a meal/food (DME) Dexcom G7 Sensor Device See Rx Instructions .Route Qty: 9 1RF Rx Instructions: Use for continuous glucose monitoring. Change every 10 days. (DME) Dexcom G7 Procedures Nurse Misc See Rx Instructions .Route Qty: 3 1RF Rx Instructions: For continuous glucose monitoring, Change every 3 months Premarin 0.625 mg/gram cream See Rx Instructions .ROUTE .COMPLEX PRN (Reason: as needed ) Dose Instruction: INSERT 1/2 GRAM INTRAVAGINALLY ONCE DAILY FOR 2 WEEKS THEN INSERT 1/2 GRAM THREE TIMES WEEKLY; OFF FOR 7 DAYS THEN REPEAT Rx Instructions: INSERT 1/2 GRAM INTRAVAGINALLY ONCE DAILY FOR 2 WEEKS THEN INSERT 1/2 GRAM THREE TIMES WEEKLY; OFF FOR 7 DAYS THEN REPEAT PRN; tramadol 50 mg tablet 50 mg PO Q6H PRN (Reason: pain) Qty: 20 0RF albuterol sulfate 90 mcg/actuation HFA aerosol inhaler 2 puff inhalation Q6H PRN (Reason: shortness of breath or wheezing) Qty: 8.5 0RF Patient Comments: Pt reports has not used. bisacodyl 5 mg tablet,delayed release (DR/EC) 5 mg PO DAILY PRN (Reason: Constipation) prochlorperazine maleate [Compazine] 10 mg tablet 10 mg PO Q6H PRN (Reason: Nausea) furosemide 40 mg tablet 40 mg PO DAILY spironolactone 25 mg tablet 25 mg PO DAILY Qty: 30 2RF sulfamethoxazole-trimethoprim [Bactrim] 1 tab PO .3XWEEKLY losartan 25 mg tablet 25 mg PO QAM Qty: 90 1RF aspirin [Ecotrin Low Strength] 81 mg Tablet,Delayed Release (Dr/Ec) 81 mg PO HS docusate sodium [Colace] 100 mg Capsule 100 mg PO DAILY PRN (Reason: Constipation) pantoprazole 40 mg tablet,delayed release (DR/EC) 40 mg PO DAILY loratadine [Claritin] 10 mg Tablet 10 mg PO DAILY PRN (Reason: chemo) loperamide 2 mg Capsule 2 mg PO Q6H PRN (Reason: Diarrhea) sennosides 8.6 mg tablet 8.6 mg PO DAILY PRN (Reason: Diarrhea) insulin aspart U-100 [Novolog FlexPen U-100 Insulin] 100 unit/mL (3 mL) insulin pen 0 unit subcut TID PRN (Reason: if premeal blood sugars greater than 250) Rx Instructions: Per sliding scale Jardiance 10 mg tablet 10 mg PO QAM Rx Instructions: TAKE ONE TABLET BY MOUTH EVERY MORNING. insulin glargine U-300 conc [Toujeo SoloStar U-300 Insulin] 300 unit/mL (1.5 mL) insulin pen 40 unit subcut HS potassium chloride 20 mEq Tablet,Er Particles/Crystals 20 meq PO BID Qty: 60 0RF ondansetron 8 mg tablet,disintegrating 8 mg PO Q8H Qty: 0 0RF Held levofloxacin 750 mg tablet 750 mg PO DAILY Hold Instructions: Resume on 08/30/24. resume tomorrow 08/30/24, only 1 day of overlap with fluconazole Discharge Orders: Discharge Order (Routine); Ordered 08/29/24 Ordered By: Keshav Islas/Other Patient Handouts: Cancer: Managing Fatigue, UTIs, What Is Non- Hodgkin Lymphoma Admission Data Admit Date/Time: 08/21/24 00:22 Attending Provider: Rojelio Egan Admit Provider: Ana Lilia Saucedo Primary Care Provider: Nikki Tom Other Providers: [facility]; Samuel Barrios; Ericka Calero; Linn John; Twila Boland; Jorge Wilson; Ksenia Mills; Leticia Ojeda Other Interventions: Discharge Summary Assessment (RN) Last Done: 08/29/24 11:19 Supervising Physician Co-Signing Physician Notes I personally examined the patient and verified all bustillo points of history and exam, discussed case, and agree with decision making with Dr Meek feeling better no new complaints, feels up to going to SNF today vitals noted nad heent nc at mmm breathing unlabored no accessory muscles good effort skin no rashes no pallor or icterus abdomen mildly distended much softer and no tenderness Weaknessappears to be multifactorial between lymphoma, radiation treatment, Possible fungal urinary tract infection, and COVIDcontinue supportive care, otherwise as below. Possible fungal UTIversus radiation and/or mass irritation of her bladder and contaminant yeastappreciate infectious disease input. seems to be a situation where we feel obligated to at least treat for now, but at the same time as I am getting to know her situation more, I am much more suspicious that most of her urinary symptoms are from mass effect, possibly radiation, and probably constipation. treat for a total of 7 days which would end on Sunday. urinary incontinence - likely as above as well as ?constipation Fecal incontinence After further review, her history, physical exam, and incidentally noted stool on CT scan that was for radiation treatment about 6 weeks ago all fit with constipation and overflow diarrhea. Discussed this with patient in depthshe expresses a good understanding. She is fairly weak, and currently has a lot of supportive care given that she is in the hospitalafter we discussed the risks and benefits of different approaches, we both agreed it made the most sense to manage the initial phase of this yeartook 85 g of MiraLAX 2 days ago with very minimal resultslargely confirming the diagnosis based on her lack of bowel movement with a fairly sizable amount of MiraLAX followed with a bowel prep the clinically seems to have improved the situationdiscussed with patient that resolution would largely be clinical followed by maintenanceshe asked for an x-ray to see how things were goingdiscussed that largely the follow-up from here would be clinical, but that if it would help her peace of mind is not unreasonablefollow-up x-ray still shows a decent amount of stoolbut as long as her symptoms are improving, we can manage this as more routine constipation as long as her overflow diarrhea/fecal incontinence have now resolvedDiscussed this with patient, for now would look at a maintenance regimen in the neighborhood of 17 g of MiraLAX twice daily, but more importantly dialing the MiraLAX up or down based on the previous days bowel movementsand if she has recurrence of diarrhea, first being suspicious she is more constipated, rather than having been overtreated. Discussed that obviously a lot of this will be educated trial and error, but is a fairly common problem Long QT 474 today. she is looked well and him not sure how reliable her QT interval is with AV pacing, at the same time given that she has been on AV prolonging medications would follow-up an EKG again in about 48 hours. As a relates to her medications, she will be on Diflucan for 2 more days (08/30, 08/31) and then discontinued, and in regards to her infection prophylaxis it seems reasonable to resume her Levaquin given there would be such a short period of overlap being on both. Would repeat an EKG 08/31, and then periodically thereafter given that even though she would be off of the Diflucan she will still be on the Levaquin possible pressure ulcer of sacral region, stage 3, POA - ongoing local wound care both here and after discharge; as she gets stronger hopefully offloading will be easier to make healing easier as well otherwise as above pharmacologic DVT prophylaxis contraindicated due to severe thrombocytopenia. SCDs ordered anticipate [facility] at dischargetoday Resident Activity Tracking Resident Involvement: Resident Care Provided Care Provided: Adult [facility]
[2024-08-29 07:07] VITALS: BP 122/74; PULSE 59; RESP 16; TEMP 98.8
[2024-08-29 10:20] LABS: Hematocrit (blood only) 26.7 % (37.0-47.0); Hemoglobin 8.4 g/dl (12.0-16.0); Mean Corpuscular Hgb Conc 31.5 g/dL (32.0-36.0); Mean Corpuscular Volume 92.1 fL (80.0-100.0); Mean Platelet Volume 11.1 fL (9.4-12.4); Platelet Count 28 K/uL (130-400); White Blood Count 2.58 K/ul (4.8-10.8)
[2024-08-29 10:31] LABS: Basophils # (auto) 0.01 K/uL (0.00-0.20); Basophils % (auto) 0.4 %; Eosinophils # (auto) 0.05 K/uL (0.00-0.50); Eosinophils % (auto) 1.9 %; Immature Granulocytes # (auto) 0.02 K/uL (0.01-0.20); Immature Granulocytes % (auto) 0.8 %; Lymphocytes # (auto) 0.05 K/uL (1.20-3.40); Lymphocytes % (auto) 1.9 %; Monocytes # (auto) 0.28 K/uL (0.11-0.59); Monocytes % (auto) 10.9 %; Neutrophils # (auto) 2.17 K/uL (1.40-6.50); Neutrophils % (auto) 84.1 %
[2024-08-29 10:57] LABS: Calcium 7.6 mg/dl (8.6-10.3); Creatinine Clr Calc Pharmacy 55.2 ml/min; Potassium 3.2 mmol/L (3.5-5.1)
--- NOTE | 2024-08-29 17:31 | Billing Data ---
Date of Service August 29, 2024 Coding Level of Care Code 53230 IN/OBS DISCH 30 MIN/LESS
--- NOTE | 2024-09-01 09:20 | Electrocardiogram Report ---
Test Reason : Blood Pressure : */* mmHG Vent. Rate : 60 BPM Atrial Rate : 60 BPM P-R Int : 222 ms QRS Dur : 146 ms QT Int : 474 ms P-R-T Axes : 4 100 -57 degrees QTcB Int : 474 ms AV dual-paced rhythm with prolonged AV conduction Abnormal ECG When compared with ECG of 28-Aug-2024 06:25, Vent. rate has decreased by 5 bpm Confirmed by Dangelo Wallis ([id number]) on 09/01/2024 9:20:26 AM Referred By: REFERRED SELF Confirmed By: Dangelo Wallis
== END 2024-08-29 11:46 | DRG 177 ==
LOC: ED 20:06 → SUATTDRO 08-21 00:22 → 2W 08-21 00:22

== ENCOUNTER 2024-09-08 12:58 | Inpatient (IN) ==
--- NOTE | 2024-09-08 13:54 | XRay Report ---
XR chest 1V portable HISTORY: 73 years-old Female Sepsis COMPARISON: 08/20/2024 TECHNIQUE: AP view of the chest FINDINGS: Cardiac silhouette is enlarged. Unchanged right IJ [id number] catheter and left subclavian pacer. No pneumothorax, pleural effusion or airspace consolidation. No overt pulmonary edema. Bones appear g rossly intact. IMPRESSION: Cardiomegaly without acute process. ACT 112: Negative or not required by law. The above report was generated using voice recognition software. It may contain grammatical, syntax o r spelling errors. Electronically signed by: Damion Oswald M.D. 09/08/2024 1:53 PM
--- NOTE | 2024-09-08 13:55 | Emergency Department Note ---
Impression & Plan Hypotension, Anemia, Weakness, Acute UTI, Hypomagnesemia, Acute dehydration, Hypocalcemia ED Provider Note NAME: AV LAINEZ AGE: 73 SEX: F : 1950 ARRIVES VIA: Ambulance INFORMANT: [Patient] ED PROVIDER(S): [Kris Loo MD] CHIEF COMPLAINT: Hypotension HISTORY OF PRESENT ILLNESS: The patient is a 73-year-old female who presents to the ER with weakness, low blood pressure and falling. She denies any injury from the falls. No syncope. Patient was noted to have a low hemoglobin outpatient and received 1 packed red blood cell transfusion 3 days ago. She has not since had her hemoglobin checked. The patient is on antibiotics for UTI. She also has a known sacral ulcer. She has lymphoma. The patient currently denies any chest pain or dyspnea. No abdominal pain. There has been no fever or cough. She has chronic diarrhea, no black or bloody stool. PMHx/PSHx/Social Hx: See Below PHYSICAL EXAM: GENERAL: Patient is in no acute distress. HEENT: No acute trauma, normocephalic atraumatic, mucous membranes moist, no nasal congestion. NECK: No stridor, no adenopathy, no meningismus, trachea is midline. LUNGS: Clear to auscultation bilaterally, no wheeze, no rhonchi, breath sounds equal. HEART: 4/6 systolic murmur, regular rate and rhythm. ABDOMEN: Soft, nontender, no peritonitis. Obese. EXTREMITIES: No cyanosis, full range of motion of all the joints without pain or difficulty. NEUROLOGIC: Oriented x 3, no acute motor or sensory deficits, no focal weakness. SKIN: No jaundice, no diaphoresis. Pale. Rectal: There is no stool in the rectal vault for heme testing. DIFFERENTIAL DIAGNOSIS: GI bleeding, anemia, sepsis, dehydration, electrolyte imbalance, UTI, among others. EMERGENCY DEPARTMENT PROCEDURES: MEDICAL DECISION MAKING: There is no leukocytosis. The patient is anemic with a hemoglobin of 6. There is a low platelet count but this appears to be more of a chronic issue for the patient. INR slightly high at 1.4. Potassium mildly elevated at 5.7. Creatinine was elevated at 1.92, consistent with some dehydration. Magnesium was low at 1.4, calcium is low at 8. Lactic acid level was elevated, possibly consistent with infection or just the hypotension itself. There were some subtle liver enzyme elevations, the bilirubin was normal. ECG showed an AV pacemaker. No obvious ischemia. Cardiac enzyme testing x 1 was somewhat elevated, this troponin elevation could be secondary to mismatch from her hypotension although cardiac injury was also considered. Urinalysis does show findings of infection. Chest x-ray did not show heart failure or pneumonia. Abdominal and pelvis CT showed some chronic changes, no sacral osteomyelitis or urinary obstruction. I did perform a rectal exam, there was no stool in the vault for heme testing. The patient has a history of anemia requiring transfusion. She states that her doctors currently believe her hemoglobin is low because she is not making enough blood. Patient was ordered for blood for transfusion. She did consent for transfusion. I did order for 1 unit to be given while here in the ED. She was given IV saline, 1 L. She was given IV Zosyn as antibiotic coverage. She received IV calcium and IV magnesium. The patient remains hypotensive but basically asymptomatic. She is not in distress, she is comfortable. I suspect the hypotension is secondary to her anemia. I do not believe she is septic. I did speak with the patient, I spoke with her friend/family. I did speak with case management, the on-call hospitalist has been consulted. Prior/Outside records/notes reviewed: Today's EMS notes describing her presentation and transport to this hospital. ECG per my interpretation: Indication was weakness. The ECG shows an AV pacemaker with a rate of 74. There is no PVC, no obvious acute ST elevation, the QTc is 446. Continuous Cardiac Monitoring per my interpretation: An order was placed for continuous cardiac monitoring. The monitor shows a rate of 70 with an AV pacemaker. Imaging/x-ray results per my interpretation: Chest x-ray does not show CHF or pneumonia. Chronic Medical/Social conditions affecting care: Advanced age, history of lymphoma as well as anemia. Care/Management discussed with: Case management, the on-call hospitalist. Level of care consideration(s): After review of the information above and other included data: --I believe the patient requires escalation of care to admission Critical Care Note: I have personally spent 52 minutes of critical care time in the direct management of this patient. This includes bedside care, interpretation of diagnostic studies, and testing, discussion with consultants, patient, and family members, and other required patient management activities. This 52 minutes is in excess of all separately billable procedures. DISPOSITION: Admission Past Med/Surg History Problem List Hypocalcemia (Acute) Acute dehydration (Acute) Hypomagnesemia (Acute) Acute UTI (Acute) Weakness (Acute) Anemia (Acute) Hypotension (Acute) B-cell lymphoblastic leukemia (Acute) Anemia (Acute) B-cell lymphoma (Acute) Cardiomyopathy Hypokalemia Urinary tract infection (Acute) Pancytopenia (Acute) Arthritis of left hip Atrial flutter Anticoagulant long-term use Unspecified atrial fibrillation MAVERICK (iron deficiency anemia) Cardiac pacemaker Diastolic congestive heart failure, NYHA class 2 Vitamin D deficiency Chronic kidney disease, stage 3a Anemia has had eliquis on hold since 12/05/23 - pt has been receiving iron infusion and 3 blood transfusions since November 2023. Pleural effusion (Acute) Third degree heart block (Acute) reason for pacemaker Mediastinal adenopathy Sarcoid Diabetes mellitus, type II, insulin dependent Chronic cystitis (Acute) Essential hypertension (Acute) Microalbuminuria (Acute) Mitral regurgitation (Acute) Recurrent UTI (Acute) Tricuspid regurgitation (Acute) Trigger finger, acquired (Acute) Venous insufficiency (Acute) Morbid obesity (Chronic) Hyperlipidemia (Chronic) MAX (obstructive sleep apnea) (Chronic) cpap nightly LVH (left ventricular hypertrophy) (Chronic) Aortic stenosis (Chronic) mild calcific aortic stenosis noted on 2005 Echo at [facility] in 2019. 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) Medical History Overflow diarrhea Dysuria Low hemoglobin Diarrhea Acute UTI COVID-19 Hypokalemia HFrEF (heart failure with reduced ejection fraction) Generalized weakness Type 2 diabetes mellitus Non-Hodgkin's lymphoma B-cell lymphoma TREATMENT FOR 1 YEAR *R-CHOP (LAST TX 2018) Gastritis due to bacteria h.pylori positive gastritis; following with GI Tricuspid regurgitation mild per 10/02/23 ECHO History of GI bleed Eliquis on hold as result; GI currently working up; had EGD 12/2023 Coronary artery disease severe RCA stenosis per cath 07/05/22; med mgmt recommended Anemia has had eliquis on hold since 12/05/23 - pt has been receiving iron infusion and 3 blood transfusions since November 2023 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 Aortic stenosis mod-severe per 10/02/23 ECHO LVH (left ventricular hypertrophy) MAX (obstructive sleep apnea) cpap nightly Hyperlipidemia Venous insufficiency Mitral regurgitation mod-severe per 10/02/23 ECHO HTN (hypertension) Chronic cystitis Hx of sarcoidosis follows with Chronic kidney disease (CKD), stage III (moderate) Vitamin D deficiency Diastolic congestive heart failure, NYHA class 2 follows with heart failure clinic Unspecified atrial fibrillation cardioversion 09/2023 [facility] Atrial flutter cardioversion 09/2023 [facility] History of ventricular tachycardia 7 sec run of NSVT per 01/13/24 pacer report. per Cardio comments: "continue to monitor" History of third degree heart block reason for pacemaker Abnormal findings on esophagogastroduodenoscopy (EGD) 12/2023: h.pylori gastritis, hernia History of cardioversion 09/2023 at [facility] - successful. History of COVID-12 March 2021 - cold symptoms. no current issues Hx of cancer of uterus s/p hyster 2005 History of B-cell lymphoma treatment for 1 year in 2019 *R-CHOP. Recurrence noted in LN on 03/10/24 bronchoscopy Diabetes mellitus, type 2 IDDM Neuropathy Pacemaker Medtronic pacer placed 11/2021 for complete heart block. follows with [facility], last checked 12/2023 Mediastinal lymphadenopathy Surgical History Port-A-Cath in place (04/02/24) Insertion Access Port with Fluoroscopy(Not Applicable) - Eddie Pineda DO, FACS Status post PICC central line placement Right IJ port placed for chemo 2018 (subsequently removed) S/P trigger finger release right hand History of cardiac catheterization 06/2022 [facility] - sob - no stents History of removal of Port-a-Cath Remove Access Port(Right) - Eddie Pineda DO, FACS [id number] H/O breast biopsy benign H/O total hysterectomy MAYITO and BSO 2006 History of tooth extraction History of cataract surgery bilateral History of bronchoscopy Status post placement of cardiac pacemaker 11/28/21 H/O excision of mass left neck (lymphoma) History of total knee arthroplasty bilateral History of tonsillectomy and adenoidectomy H/O colonoscopy Family History Grandfather (Maternal) Family history of diabetes mellitus Family/Other Family history of diabetes mellitus Father Myocardial infarction Family history of esophageal cancer Other No family history of adverse response to anesthesia Denies family history of Ovarian cancer Prostate cancer Breast cancer Colorectal cancer Social History Smoking Status: Never smoker Second Hand Exposure: Yes (hx); Do You Dip or Chew Tobacco: No; Hx Alcohol Use: No Hx Substance Use: No Preferred Language: Chinese Communication Ability: Effective Visual Impairment: No Limitations Hearing Ability: Normal [place] Required: No Beliefs That Will Affect Care: None marital status: Current Living Situation: Alone current occupational status: employed current occupation: [employer] How many Children do You have: 1 Feels Safe at Home: Yes Childhood Exposure to Second-Hand Smoke: Yes Diet: regular caffeine: Yes during the past year weight has: remained stable Dental Care, Regularly: Yes Physical Activity Frequency: Does not Exercise Seatbelt Use: always Sunscreen Use: Yes Assistive Devices: Cane and Walker Allergies Allergies Allergy/AdvReac Type Severity Reaction Status Date / Time cat dander Allergy Intermediate ITCHY Verified 09/05/24 15:45 EYES, SNEEZING, CONGESTION lisinopril Allergy Mild Cough Verified 09/05/24 15:45 Sulfa (Sulfonamide AdvReac Intermediate NAUSEA Verified 09/05/24 15:45 Antibiotics) codeine AdvReac Mild Vomiting Verified 09/05/24 15:45 Home Meds Home Medications Medication Instructions Recorded Confirmed aspirin 81 mg tablet,delayed 81 mg PO HS 10/18/18 09/05/24 release (Ecotrin Low Strength) docusate sodium 100 mg capsule 100 mg PO DAILY PRN Constipation 04/02/24 09/05/24 (Colace) bisacodyl 5 mg tablet,delayed 5 mg PO DAILY PRN Constipation 05/07/24 09/05/24 release prochlorperazine maleate 10 mg 10 mg PO Q6H PRN Nausea 05/07/24 09/05/24 tablet (Compazine) empagliflozin 10 mg tablet 10 mg PO QAM 05/12/24 09/05/24 (Jardiance) insulin aspart U-100 100 unit/mL 0 unit subcut TID PRN if premeal 05/12/24 09/05/24 (3 mL) subcutaneous pen (Novolog blood sugars greater than 250 FlexPen U-100 Insulin aspart) sennosides 8.6 mg tablet 8.6 mg PO DAILY PRN Diarrhea 05/12/24 09/05/24 levofloxacin 750 mg tablet 750 mg PO DAILY 07/01/24 09/05/24 sulfamethoxazole-trimethoprim 1 tab PO .3XWEEKLY 07/01/24 09/05/24 [Bactrim] loratadine 10 mg tablet (Claritin) 10 mg PO DAILY PRN chemo 07/16/24 09/05/24 loperamide 2 mg capsule 2 mg PO Q6H PRN Diarrhea 08/12/24 09/05/24 furosemide 40 mg tablet 40 mg PO DAILY 08/18/24 09/05/24 Previous Rx's Medication Instructions Recorded pen needle, diabetic 31 gauge x #100 ea 05/15/2212/07" (BD Ultra-Fine Mini Pen Needle) albuterol sulfate 90 mcg/actuation 2 puff inhalation Q6H PRN 02/26/23 aerosol inhaler shortness of breath or wheezing #8.5 grams blood-glucose meter,continuous #3 ea 05/01/23 (Dexcom G7 Duct Maker) blood-glucose sensor (Dexcom G7 #9 ea 05/01/23 Sensor device) tramadol 50 mg tablet 50 mg PO Q6H PRN pain #20 tabs 03/11/24 polyethylene glycol 3350 17 17 g PO DAILY PRN constipation 04/16/24 gram/dose oral powder (Miralax) #119 grams lorazepam 0.5 mg tablet 0.5 mg PO HS PRN anxiety #20 tabs 05/08/24 miscellaneous medical supply #1 ea 05/13/24 potassium chloride 20 mEq 20 meq PO BID #60 tabs 05/17/24 tablet,extended release(part/cryst) acyclovir 400 mg tablet 400 mg PO BID #60 tabs 06/06/24 metformin 1,000 mg tablet 1,000 mg PO BID #180 tabs 06/16/24 losartan 25 mg tablet 25 mg PO QAM #90 tabs 07/01/24 semaglutide 1 mg/dose (4 mg/3 mL) 1 mg (0.75 mL) subcut WK #3 mL 07/03/24 subcutaneous pen injector (Ozempic) carvedilol 12.5 mg tablet 12.5 mg PO BID #180 tabs 07/15/24 spironolactone 25 mg tablet 25 mg PO DAILY #30 tabs 08/18/24 ondansetron 8 mg disintegrating 8 mg PO Q8H Encephalopathy #0 tabs 08/29/24 tablet phenazopyridine 200 mg tablet 200 mg PO TID PRN pain 7 days #21 08/29/24 (Pyridium) tabs vibegron 75 mg tablet (Gemtesa) 75 mg PO DAILY 30 days #30 tabs 08/29/24 pantoprazole 40 mg tablet,delayed See Rx Instructions .Route 09/04/24 release .COMPLEX #30 tabs rosuvastatin 20 mg tablet 20 mg PO HS #90 tabs 09/08/24 Results & Data (ED) Vital Signs Vital Signs - 24 hr 09/08/24 13:10 09/08/24 13:10 09/08/24 13:13 Temperature 37.1 C Temperature Source Oral Pulse Rate 70 70 Pulse Rate from SpO2 Sensor Respiratory Rate 18 Respiratory Effort / Characteristics Non-Labored Spontaneous Respiratory Depth Normal Blood Pressure 77/47 L 77/47 L Blood Pressure Mean 57 57 Blood Pressure Position Lying Pulse Oximetry 96 Oxygen Delivery Method Room Air Sepsis Recent Fever Within 48 Hours No Sepsis New/Unexplained Change in Mental Status No Sepsis Action Taken by Nursing No Action Required 09/08/24 13:13 09/08/24 13:15 09/08/24 13:18 Temperature Temperature Source Pulse Rate 66 Pulse Rate from SpO2 Sensor 66 Respiratory Rate 18 Respiratory Effort / Characteristics Respiratory Depth Blood Pressure 76/45 L Blood Pressure Mean 54 Blood Pressure Position Pulse Oximetry 97 Oxygen Delivery Method Room Air Sepsis Recent Fever Within 48 Hours Sepsis New/Unexplained Change in Mental Status Sepsis Action Taken by Nursing 09/08/24 13:21 09/08/24 13:21 09/08/24 13:31 Temperature Temperature Source Pulse Rate Pulse Rate from SpO2 Sensor 67 Respiratory Rate Respiratory Effort / Characteristics Respiratory Depth Blood Pressure 75/49 L Blood Pressure Mean 59 Blood Pressure Position Pulse Oximetry 96 Oxygen Delivery Method Room Air Sepsis Recent Fever Within 48 Hours Sepsis New/Unexplained Change in Mental Status Sepsis Action Taken by Nursing 09/08/24 13:33 09/08/24 13:45 09/08/24 13:46 Temperature Temperature Source Pulse Rate 60 Pulse Rate from SpO2 Sensor 62 60 Respiratory Rate 14 Respiratory Effort / Characteristics Respiratory Depth Blood Pressure 81/55 L Blood Pressure Mean 60 Blood Pressure Position Pulse Oximetry 96 99 Oxygen Delivery Method Sepsis Recent Fever Within 48 Hours Sepsis New/Unexplained Change in Mental Status Sepsis Action Taken by Nursing 09/08/24 13:54 09/08/24 14:00 09/08/24 14:09 Temperature Temperature Source Pulse Rate 83 61 Pulse Rate from SpO2 Sensor 71 62 Respiratory Rate 17 18 Respiratory Effort / Characteristics Respiratory Depth Blood Pressure 77/49 L Blood Pressure Mean 57 Blood Pressure Position Pulse Oximetry 62 L 95 Oxygen Delivery Method Sepsis Recent Fever Within 48 Hours Sepsis New/Unexplained Change in Mental Status Sepsis Action Taken by Nursing 09/08/24 14:12 09/08/24 14:16 09/08/24 14:24 Temperature Temperature Source Pulse Rate 61 60 Pulse Rate from SpO2 Sensor 62 60 Respiratory Rate 19 22 Respiratory Effort / Characteristics Respiratory Depth Blood Pressure 88/55 L Blood Pressure Mean 62 Blood Pressure Position Pulse Oximetry 98 99 Oxygen Delivery Method Sepsis Recent Fever Within 48 Hours Sepsis New/Unexplained Change in Mental Status Sepsis Action Taken by Nursing 09/08/24 14:27 09/08/24 14:46 09/08/24 14:48 Temperature Temperature Source Pulse Rate 60 60 Pulse Rate from SpO2 Sensor 60 60 Respiratory Rate 21 15 Respiratory Effort / Characteristics Respiratory Depth Blood Pressure 89/52 L Blood Pressure Mean 59 Blood Pressure Position Pulse Oximetry 100 97 Oxygen Delivery Method Sepsis Recent Fever Within 48 Hours Sepsis New/Unexplained Change in Mental Status Sepsis Action Taken by Nursing 09/08/24 15:01 09/08/24 15:06 09/08/24 15:33 Temperature Temperature Source Pulse Rate 60 68 Pulse Rate from SpO2 Sensor 60 Respiratory Rate 14 20 Respiratory Effort / Characteristics Respiratory Depth Blood Pressure 85/50 L Blood Pressure Mean 56 Blood Pressure Position Pulse Oximetry 96 Oxygen Delivery Method Sepsis Recent Fever Within 48 Hours Sepsis New/Unexplained Change in Mental Status Sepsis Action Taken by Nursing 09/08/24 15:34 09/08/24 15:55 Temperature 36.3 C L Temperature Source Oral Pulse Rate 61 Pulse Rate from SpO2 Sensor Respiratory Rate 16 Respiratory Effort / Characteristics Respiratory Depth Blood Pressure 90/54 L 79/48 L Blood Pressure Mean 61 58 Blood Pressure Position Lying Pulse Oximetry 99 Oxygen Delivery Method Sepsis Recent Fever Within 48 Hours Sepsis New/Unexplained Change in Mental Status Sepsis Action Taken by [facility] Medications Current Medication List: was personally reviewed by me Laboratory Data Attestation: I reviewed the patient's lab results. 09/08/24 14:39 09/08/24 13:45 Lab Results 09/08/24 09/08/24 09/08/24 Range/Units 13:45 14:10 14:39 WBC Cancelled 3.85 L RBC Cancelled 2.18 L Hgb Cancelled 6.6 L* Hct Cancelled 20.6 L* MCV Cancelled 94.5 MCH Cancelled 30.3 MCHC Cancelled 32.0 RDW Std Deviation Cancelled 66.8 H RDW Coeff of Shruti Cancelled 20.1 H Plt Count Cancelled 48 L MPV Cancelled 9.5 Immature Gran % (Auto) Cancelled 2.6 Neut % (Auto) Cancelled 86.4 Lymph % (Auto) Cancelled 1.3 [place] % (Auto) Cancelled 9.4 Eos % (Auto) Cancelled 0.0 Baso % (Auto) Cancelled 0.3 Neut # (Auto) Cancelled 3.33 Lymph # (Auto) Cancelled 0.05 L [place] # (Auto) Cancelled 0.36 Eos # (Auto) Cancelled 0.00 Baso # (Auto) Cancelled 0.01 Immature Gran # (Auto) Cancelled 0.10 Absolute Nucleated RBC Cancelled Nucleated RBC % (auto) Cancelled Neutrophils % (Manual) Cancelled Band Neutrophils % Cancelled Lymphocytes % (Manual) Cancelled Prolymphocyte % Cancelled Reactive Lymphs % (Man) Cancelled Monocytes % (Manual) Cancelled Eosinophils % (Manual) Cancelled Basophils % (Manual) Cancelled Metamyelocytes % (Man) Cancelled Myelocytes % (Man) Cancelled Promyelocytes % (Man) Cancelled Blast Cells % (Manual) Cancelled Plasma Cell % (Manual) Cancelled Other Cells % Cancelled Nucleated RBC % Cancelled Neutrophils # (Manual) Cancelled Band Neutrophils # Cancelled Total Absolute Neuts Cancelled Lymphocytes # (Manual) Cancelled Prolymphocyte # Cancelled Reactive Lymphs # Cancelled Total Abs Lymphocytes Cancelled Monocytes # (Manual) Cancelled Eosinophils # (Manual) Cancelled Basophils # (Manual) Cancelled Metamyelocytes # (Man) Cancelled Myelocytes # (Manual) Cancelled Promyelocytes # (Man) Cancelled Blast Cells # (Man) Cancelled Plasma Cell # (Manual) Cancelled Other Cells # Cancelled Nucleated RBCs # (Man) Cancelled Hypersegmented Neuts Cancelled Hyposegmented Neuts Cancelled Hypogranular Neuts Cancelled Large Granular Lymphs Cancelled # Lrg Granular Lymphs Cancelled Hairy Cells Cancelled Smudge Cells Cancelled Toxic Granulation Cancelled Toxic Vacuolation Cancelled Dohle Bodies Cancelled Dino Rods Cancelled Platelet Estimate Cancelled Hypogranular Platelets Cancelled Giant Platelets Cancelled Platelet Satelliting Cancelled RBC Morphology Cancelled Polychromasia Cancelled 1+ Hypochromasia Cancelled Poikilocytosis Cancelled Basophilic Stippling Cancelled Anisocytosis Cancelled Present Microcytosis Cancelled Macrocytosis Cancelled Spherocytes Cancelled Pappenheimer Bodies Cancelled Sickle Cells Cancelled Target Cells Cancelled Tear Drop Cells Cancelled Ovalocytes Cancelled Stomatocytes Cancelled Htuchinson-Wilkerson Bodies Cancelled Echinocytes Cancelled Acanthocytes (Spur) Cancelled Rouleaux Cancelled RBC Agglutinates Cancelled Schistocytes Cancelled Sezary Cell Cancelled PT Cancelled INR Cancelled APTT Cancelled PTT Ratio Cancelled Sodium 132 L (136-145) mmol/L Potassium 5.7 H (3.5-5.1) mmol/L Chloride 103 (98-107) mmol/L Carbon Dioxide 20 L (21-32) mmol/L Anion Gap 9 (3-11) BUN 31 H (6-23) mg/dl Creatinine 1.92 H (0.6-1.2) mg/dl Est Cr Clr Drug Dosing 26.8 ml/min eGFR 27.53 BUN/Creatinine Ratio 16.1 (10-20) Glucose 94 (70-99(Fasting)) mg/dl Lactate 2.7 H* (0.4-2.0) mmol/L Calcium 8.0 L (8.6-10.3) mg/dl Magnesium 1.4 L (1.7-2.4) mg/dl Total Bilirubin 0.9 (0.2-1.0) mg/dl Direct Bilirubin 0.3 H (0-0.2) mg/dl AST 99 H (13-39) U/L ALT 57 H (7-52) U/L Alkaline Phosphatase 82 (34-104) U/L Troponin I High Sens 158.4 H* (0-14) pg/ml Total Protein 5.0 L (6.0-8.3) gm/dl Albumin 2.8 L (3.4-5.0) gm/dl Procalcitonin Cancelled Urine Color Dark Yellow Urine Appearance Turbid A (Clear) Urine pH 6.0 (4.5-7.5) Ur Specific [place] 1.018 (1.000-1.030) Urine Protein 3+ H (Negative) Urine Glucose (UA) 3+ H (Negative) Urine Ketones Negative (Negative) Urine Blood 3+ H (Negative) Urine Nitrite Negative (Negative) Urine Bilirubin Negative (Negative) Urine Urobilinogen Negative (Negative) Ur Leukocyte Esterase 3+ H (Negative) Urine WBC (Auto) >50 H (0-5) /hpf Urine RBC (Auto) 6-10 H (0-2) /hpf U Hyaline Cast (Auto) >20 H (0-2) /lpf U Epithel Cells (Auto) 3-5 H (0-2) /hpf Urine Bacteria (Auto) None Seen (None Seen) Blood Parasites ID Cancelled Blood Type B Positive Antibody Screen NEGATIVE Crossmatch See Detail 09/08/24 09/08/24 Range/Units 14:40 15:40 WBC RBC Hgb Hct MCV MCH MCHC RDW Std Deviation RDW Coeff of Shruti Plt Count MPV Immature Gran % (Auto) Neut % (Auto) Lymph % (Auto) [place] % (Auto) Eos % (Auto) Baso % (Auto) Neut # (Auto) Lymph # (Auto) [place] # (Auto) Eos # (Auto) Baso # (Auto) Immature Gran # (Auto) Absolute Nucleated RBC Nucleated RBC % (auto) Neutrophils % (Manual) Band Neutrophils % Lymphocytes % (Manual) Prolymphocyte % Reactive Lymphs % (Man) Monocytes % (Manual) Eosinophils % (Manual) Basophils % (Manual) Metamyelocytes % (Man) Myelocytes % (Man) Promyelocytes % (Man) Blast Cells % (Manual) Plasma Cell % (Manual) Other Cells % Nucleated RBC % Neutrophils # (Manual) Band Neutrophils # Total Absolute Neuts Lymphocytes # (Manual) Prolymphocyte # Reactive Lymphs # Total Abs Lymphocytes Monocytes # (Manual) Eosinophils # (Manual) Basophils # (Manual) Metamyelocytes # (Man) Myelocytes # (Manual) Promyelocytes # (Man) Blast Cells # (Man) Plasma Cell # (Manual) Other Cells # Nucleated RBCs # (Man) Hypersegmented Neuts Hyposegmented Neuts Hypogranular Neuts Large Granular Lymphs # Lrg Granular Lymphs Hairy Cells Smudge Cells Toxic Granulation Toxic Vacuolation Dohle Bodies Dino Rods Platelet Estimate Hypogranular Platelets Giant Platelets Platelet Satelliting RBC Morphology Polychromasia Hypochromasia Poikilocytosis Basophilic Stippling Anisocytosis Microcytosis Macrocytosis Spherocytes Pappenheimer Bodies Sickle Cells Target Cells Tear Drop Cells Ovalocytes Stomatocytes Hutchinson-Wilkerson Bodies Echinocytes Acanthocytes (Spur) Rouleaux RBC Agglutinates Schistocytes Sezary Cell PT 14.4 H INR 1.4 H APTT 33 H PTT Ratio 1.2 Sodium (136-145) mmol/L Potassium (3.5-5.1) mmol/L Chloride (98-107) mmol/L Carbon Dioxide (21-32) mmol/L Anion Gap (3-11) BUN (6-23) mg/dl Creatinine (0.6-1.2) mg/dl Est Cr Clr Drug Dosing ml/min eGFR BUN/Creatinine Ratio (10-20) Glucose (70-99(Fasting)) mg/dl Lactate 2.7 H* (0.4-2.0) mmol/L Calcium (8.6-10.3) mg/dl Magnesium (1.7-2.4) mg/dl Total Bilirubin (0.2-1.0) mg/dl Direct Bilirubin (0-0.2) mg/dl AST (13-39) U/L ALT (7-52) U/L Alkaline Phosphatase (34-104) U/L Troponin I High Sens (0-14) pg/ml Total Protein (6.0-8.3) gm/dl Albumin (3.4-5.0) gm/dl Procalcitonin 0.58 H Urine Color Urine Appearance (Clear) Urine pH (4.5-7.5) Ur Specific [place] (1.000-1.030) Urine Protein (Negative) Urine Glucose (UA) (Negative) Urine Ketones (Negative) Urine Blood (Negative) Urine Nitrite (Negative) Urine Bilirubin (Negative) Urine Urobilinogen (Negative) Ur Leukocyte Esterase (Negative) Urine WBC (Auto) (0-5) /hpf Urine RBC (Auto) (0-2) /hpf U Hyaline Cast (Auto) (0-2) /lpf U Epithel Cells (Auto) (0-2) /hpf Urine Bacteria (Auto) (None Seen) Blood Parasites ID Blood Type Antibody Screen Crossmatch Administered Medications Magnesium Sulfate/Dextrose (Magnesium Sulfate / D5w) 1 gm in 100 mls @ 100 mls/hr IV Q1H MICHELLE Stop: 09/08/24 16:41 Last Admin: 09/08/24 15:34 Dose: 100 mls/hr Documented By: DS Discontinued Medications Sodium Chloride (Nss) 1,000 mls @ 999 mls/hr IV .Q1H1M ONE Stop: 09/08/24 14:24 Last Infusion: 09/08/24 14:49 Dose: Infused Documented By: Admin: 09/08/24 14:15 Dose: 999 mls/hr Documented By: TNK Piperacillin Sod/Tazobactam Sod (Zosyn) 4.5 gm in 100 mls @ 200 mls/hr IV NOW ONE Stop: 09/08/24 14:07 Last Infusion: 09/08/24 14:49 Dose: Infused Documented By: Admin: 09/08/24 14:15 Dose: 200 mls/hr Documented By: TNK Calcium Gluconate () 1,000 mg in 60 mls @ 240 mls/hr IV NOW STA Stop: 09/08/24 14:56 Last Admin: 09/08/24 15:06 Dose: 240 mls/hr Documented By: KOLBYK Imaging Data Radiologist's Impression: Chest X-Ray 09/08/24 13:21 XR chest 1V portable HISTORY: 73 years-old Female Sepsis COMPARISON: 08/20/2024 TECHNIQUE: AP view of the chest FINDINGS: Cardiac silhouette is enlarged. Unchanged right IJ [id number] catheter and left subclavian pacer. No pneumothorax, pleural effusion or airspace consolidation. No overt pulmonary edema. Bones appear grossly intact. IMPRESSION: Cardiomegaly without acute process. ACT 112: Negative or not required by law. The above report was generated using voice recognition software. It may contain grammatical, syntax or spelling errors. Electronically signed by: Damion Oswald M.D. 09/08/2024 1:53 PM Abdomen/Pelvis CT 09/08/24 14:[address] WITHOUT CONTRAST CT DOSE: 1116.15 mGy.cm HISTORY: Patient presents with sacral ulcers sacral ulcer TECHNIQUE: Multiaxial CT images of the abdomen and pelvis were performed without contrast. A dose lowering technique was utilized adhering to the principles of ALARA. COMPARISON STUDY: PET/CT June 25, 2024 FINDINGS: Cardiomegaly with partially imaged pacer leads. Decreased attenuation of the cardiac blood pole suggestive of anemia. Trace pericardial effusion. Bibasilar atelectasis versus scarring with scattered subcentimeter solid pulmonary nodules redemonstrated measuring up to approximately 6 mm, unchanged. No pneumatosis or pneumoperitoneum. The unenhanced spleen, atrophic pancreas and adrenal glands are unchanged. Distended gallbladder with cholelithiasis. No definite gallbladder wall thickening. Unremarkable liver. Multifocal cortical scarring with parenchymal thinning and atrophy of the left kidney redemonstrated. 4 mm nonobstructing calculus of the inferior pole left kidney. Unchanged appearance of the right kidney. No hydronephrosis. Decompressed urinary bladder with circumferential wall thickening. Atherosclerosis of the aorta. No bowel obstruction. 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 Left lower quadrant disease is noted with a 4 cm focus on image 2:30 series 3, previously 2.4 cm. There is adjacent mild wall thickening of the descending sigmoid junction. Subcutaneous edema within the midline tissues superficial to the sacrum. No acute fracture, dislocation or osseous erosion. No abscess. Chronic L5 pars defects with grade 1 anterolisthesis. IMPRESSION: 1. Small sacral decubitus ulcer without abscess or CT evidence of acute osteomyelitis. 2. Findings compatible with patient's clinical history of lymphoma redemonstrated. Disease of the abdominal right lower quadrant with involvement of the adjacent abdominal wall has mildly improved from the comparison PET/CT while disease within the abdominal left lower quadrant has mildly progressed. 3. Cholelithiasis without sonographic evidence of acute cholecystitis. 4. Additional findings as above. ACT 112: Negative or not required by law. The above report was generated using voice recognition software. It may contain grammatical, syntax or spelling errors. Electronically signed by: Damion Oswald M.D. 09/08/2024 4:01 PM Discharge Plan Visit Data Chief Complaint: Hypotension Stated Complaint: HYPOTENSIVE ED Provider: Kris Loo Discharge Problem: Hypotension, Anemia, Weakness, Acute UTI, Hypomagnesemia, Acute dehydration, Hypocalcemia Patient Disposition: Admitted As Inpatient Condition: Serious Forms Stand Alone Forms: My [facility] Prescriptions Prescriptions: No Action (DME) pen needle, diabetic [BD Ultra-Fine Mini Pen Needle] 31 gauge x 3/16" needle See Dose Instructions .ROUTE .MEDSUPPLY Qty: 100 4RF Dose Instruction: As directed Rx Instructions: Use as directed polyethylene glycol 3350 [Miralax] 17 gram/dose powder 17 g PO DAILY PRN (Reason: constipation) Qty: 119 0RF lorazepam 0.5 mg tablet 0.5 mg PO HS PRN (Reason: anxiety) Qty: 20 0RF (DME) miscellaneous medical supply Misc See Rx Instructions .ROUTE .MEDSUPPLY Qty: 1 0RF Rx Instructions: Stair Lift C85.9 acyclovir 400 mg tablet 400 mg PO BID Qty: 60 0RF metformin 1,000 mg tablet 1,000 mg PO BID Qty: 180 0RF Ozempic 1 mg/dose (4 mg/3 mL) pen injector 1 mg subcut WK Qty: 3 1RF Rx Instructions: Q Fri carvedilol 12.5 mg tablet 12.5 mg PO BID Qty: 180 3RF Rx Instructions: must administer with a meal/food pantoprazole 40 mg tablet,delayed release (DR/EC) See Rx Instructions .ROUTE .COMPLEX Qty: 30 0RF Dose Instruction: TAKE 1 TABLET BY MOUTH ONCE DAILY, for 3 months Rx Instructions: TAKE 1 TABLET BY MOUTH ONCE DAILY, for 3 months rosuvastatin 20 mg tablet 20 mg PO HS Qty: 90 3RF (DME) Dexcom G7 Sensor Device See Rx Instructions .Route Qty: 9 1RF Rx Instructions: Use for continuous glucose monitoring. Change every 10 days. (DME) Dexcom G7 Duct Maker Misc See Rx Instructions .Route Qty: 3 1RF Rx Instructions: For continuous glucose monitoring, Change every 3 months tramadol 50 mg tablet 50 mg PO Q6H PRN (Reason: pain) Qty: 20 0RF albuterol sulfate 90 mcg/actuation HFA aerosol inhaler 2 puff inhalation Q6H PRN (Reason: shortness of breath or wheezing) Qty: 8.5 0RF Patient Comments: Pt reports has not used. bisacodyl 5 mg tablet,delayed release (DR/EC) 5 mg PO DAILY PRN (Reason: Constipation) prochlorperazine maleate [Compazine] 10 mg tablet 10 mg PO Q6H PRN (Reason: Nausea) furosemide 40 mg tablet 40 mg PO DAILY spironolactone 25 mg tablet 25 mg PO DAILY Qty: 30 2RF levofloxacin 750 mg tablet 750 mg PO DAILY Hold Instructions: Resume on 08/30/24. resume tomorrow 08/30/24, only 1 day of overlap with fluconazole sulfamethoxazole-trimethoprim [Bactrim] 1 tab PO .[id number] losartan 25 mg tablet 25 mg PO QAM Qty: 90 1RF aspirin [Ecotrin Low Strength] 81 mg Tablet,Delayed Release (Dr/Ec) 81 mg PO HS docusate sodium [Colace] 100 mg Capsule 100 mg PO DAILY PRN (Reason: Constipation) loratadine [Claritin] 10 mg Tablet 10 mg PO DAILY PRN (Reason: chemo) loperamide 2 mg Capsule 2 mg PO Q6H PRN (Reason: Diarrhea) sennosides 8.6 mg tablet 8.6 mg PO DAILY PRN (Reason: Diarrhea) insulin aspart U-100 [Novolog FlexPen U-100 Insulin] 100 unit/mL (3 mL) insulin pen 0 unit subcut TID PRN (Reason: if premeal blood sugars greater than 250) Rx Instructions: Per sliding scale Jardiance 10 mg tablet 10 mg PO QAM Rx Instructions: TAKE ONE TABLET BY MOUTH EVERY MORNING. potassium chloride 20 mEq Tablet,Er Particles/Crystals 20 meq PO BID Qty: 60 0RF phenazopyridine [Pyridium] 200 mg Tablet 200 mg PO TID PRN (Reason: pain) 7 Days Qty: 21 1RF Gemtesa 75 mg Tablet 75 mg PO DAILY 30 Days Qty: 30 0RF ondansetron 8 mg tablet,disintegrating 8 mg PO Q8H Qty: 0 0RF Referrals Referrals: Nikki Tom MD [Family Provider] - Discharge Problem: Hypotension Qualifiers: Hypotension type: unspecified hypotension type Qualified Code(s): I95.9 - Hypotension, unspecified Anemia Qualifiers: Anemia type: unspecified type Qualified Code(s): D64.9 - Anemia, unspecified
[2024-09-08] MEDS: PIPERACILLIN/TAZOBACTAM 4.5 GM/100 ML BAG IV ONE (14:15)
[2024-09-08] MEDS: SODIUM CHLORIDE 0.9% 1,000 ML IV ONE (14:15)
[2024-09-08] MEDS ORDERED: SODIUM CHLORIDE 0.9% 50 ML IV PRN ×2 (14:22→20:56)
[2024-09-08] MEDS ORDERED: SODIUM CHLORIDE 0.9% 100 ML IV PRN ×2 (14:22→20:56)
[2024-09-08 14:32] LABS: Albumin Level 2.8 gm/dl (3.4-5.0); BUN Creatinine Ratio 16.1 (10-20); Bilirubin Direct 0.3 mg/dl (0-0.2); Bilirubin,Total 0.9 mg/dl (0.2-1.0); Creatinine Clr Calc Pharmacy 26.8 ml/min; Magnesium 1.4 mg/dl (1.7-2.4); Potassium 5.7 mmol/L (3.5-5.1)
[2024-09-08 14:45] LABS: Troponin I High Sensitivity 158.4 pg/ml (0-14)
[2024-09-08 15:04] LABS: Appearance Urine Turbid (Clear); Bacteria Urine Automated None Seen (None Seen); Bilirubin Urine Negative (Negative); Blood Urine 3+ (Negative); Cast Urine Automated >20 /lpf (0-2); Color Urine Dark Yellow; Glucose Urine UA 3+ (Negative); Ketones Urine Negative (Negative); Leukocyte Esterase Urine 3+ (Negative); Nitrite Urine Negative (Negative); Protein Urine 3+ (Negative); Specific Gravity Urine 1.018 (1.000-1.030); Urobilinogen Urine Negative (Negative); WBC Urine Automated >50 /hpf (0-5)
[2024-09-08 15:05] LABS: Hematocrit (blood only) 20.6 % (37.0-47.0); Hemoglobin 6.6 g/dl (12.0-16.0); Mean Corpuscular Hemoglobin 30.3 pg (25.0-34.0); Mean Corpuscular Volume 94.5 fL (80.0-100.0); Mean Platelet Volume 9.5 fL (9.4-12.4); Platelet Count 48 K/uL (130-400); RDW Coefficient of Variation 20.1 % (11.5-14.5); RDW Standard Deviation 66.8 fL (36.4-46.3); Red Blood Count 2.18 M/uL (4.20-5.40); White Blood Count 3.85 K/ul (4.8-10.8)
[2024-09-08] MEDS: CALCIUM GLUCONATE 1,000 MG/60 ML BAG IV STA (15:06)
[2024-09-08 15:10] LABS: INR 1.4 (0.9-1.1); Partial Thromboplastin Ratio 1.2; Partial Thromboplastin Time 33 Seconds (21-31); Prothrombin Time 14.4 Seconds (9.0-12.0)
[2024-09-08 15:21] LABS: Anisocytosis Present; Basophils # (auto) 0.01 K/uL (0.00-0.20); Basophils % (auto) 0.3 %; Immature Granulocytes % (auto) 2.6 %; Lymphocytes # (auto) 0.05 K/uL (1.20-3.40); Lymphocytes % (auto) 1.3 %; Monocytes # (auto) 0.36 K/uL (0.11-0.59); Monocytes % (auto) 9.4 %; Neutrophils # (auto) 3.33 K/uL (1.40-6.50); Neutrophils % (auto) 86.4 %; Polychromasia 1+
[2024-09-08] MEDS: MAGNESIUM SULFATE / D5W 1 GM/100 ML BAG IV SCH (15:34)
--- NOTE | 2024-09-08 16:03 | CT Scan Report ---
ABDOMEN AND PELVIS CT WITHOUT CONTRAST CT DOSE: 1116.15 mGy.cm HISTORY: Patient presents with sacral ulcers sacral ulcer TECHNIQUE: Multiaxial CT images of the abdomen and pelvis were performed without contrast. A dose lo wering technique was utilized adhering to the principles of ALARA. COMPARISON STUDY: PET/CT June 25, 2024 FINDINGS: Cardiomegaly with partially imaged pacer leads. Decreased attenuation of the cardiac blood pole suggestive of anemia. Trace pericardial effusion. Bibasilar atelectasis versus scarring with sca ttered subcentimeter solid pulmonary nodules redemonstrated measuring up to approximately 6 mm, uncha nged. No pneumatosis or pneumoperitoneum. The unenhanced spleen, atrophic pancreas and adrenal glands are unchanged. Distended gallbladder with cholelithiasis. No definite gallbladder wall thickening. Unremarkable liver. Multifocal cortical sca rring with parenchymal thinning and atrophy of the left kidney redemonstrated. 4 mm nonobstructing ca lculus of the inferior pole left kidney. Unchanged appearance of the right kidney. No hydronephrosis. Decompressed urinary bladder with circumferential wall thickening. Atherosclerosis of the aorta. No bowel obstruction. 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 Left lower quadrant disease is noted with a 4 cm focus on image 2: 30 series 3, previously 2.4 cm. There is adjacent mild wall thickening of the descending sigmoid junc tion. Subcutaneous edema within the midline tissues superficial to the sacrum. No acute fracture, dis location or osseous erosion. No abscess. Chronic L5 pars defects with grade 1 anterolisthesis. IMPRESSION: 1. Small sacral decubitus ulcer without abscess or CT evidence of acute osteomyelitis. 2. Findings compatible with patient's clinical history of lymphoma redemonstrated. Disease of the abd ominal right lower quadrant with involvement of the adjacent abdominal wall has mildly improved from the comparison PET/CT while disease within the abdominal left lower quadrant has mildly progressed. 3. Cholelithiasis without sonographic evidence of acute cholecystitis. 4. Additional findings as above. ACT 112: Negative or not required by law. The above report was generated using voice recognition software. It may contain grammatical, syntax o r spelling errors. Electronically signed by: Damion Oswald M.D. 09/08/2024 4:01 PM
[2024-09-08] MEDS ORDERED: ALUMINUM/MAGNESIUM SUSP 30 ML UDC PO PRN (17:02)
[2024-09-08] MEDS ORDERED: ONDANSETRON INJ 2 MG/ML 2 ML VIAL IV PRN (17:02)
[2024-09-08] MEDS ORDERED: traMADol HCL 50 MG TABLET PO PRN (17:02)
[2024-09-08] MEDS ORDERED: PROCHLORPERAZINE MALEATE 10 MG TAB PO PRN (17:02)
[2024-09-08] MEDS ORDERED: PHENAZOPYRIDINE HCL 200 MG TAB PO PRN (17:02)
[2024-09-08] MEDS ORDERED: DOCUSATE SODIUM 100 MG CAP PO PRN (17:02)
[2024-09-08] MEDS ORDERED: ALBUTEROL HFA 8 GM INHALER INH PRN (17:02)
[2024-09-08] MEDS ORDERED: MAGNESIUM HYDROXIDE SUSP 30 ML UDC PO PRN (17:02)
[2024-09-08] MEDS ORDERED: ONDANSETRON 8MG OD TAB PO PRN (17:02)
[2024-09-08] MEDS ORDERED: LORATADINE 10 MG TAB PO PRN (17:02)
[2024-09-08] MEDS ORDERED: LORazepam 0.5 MG TAB PO PRN (17:02)
[2024-09-08] MEDS: PANTOprazole 40 MG TAB PO SCH (18:37)
[2024-09-08] MEDS: carvediloL 12.5 MG TAB PO SCH (18:40)
--- NOTE | 2024-09-08 19:00 | History & Physical Report ---
Date of Service September 08, 2024 Assessment & Plan (1) Anemia: Plan: Appears to be predominantly due to her lymphoma and/or treatment. At the same time, she was just transfused on Sunday and is requiring a transfusion yet again only a few days later. Obviously transfuse for now. On review of her prior labs and hematology notes, she is iron deficientwill give Venna for as well. Will also discuss with hematology tomorrow if any further considerations should be investigated and/or if we should give her additional blood prior to discharge. (2) Acute dehydration: Plan: Related to poor p.o. intake. Giving blood, additionally giving IV fluids. Her dehydration has led to concomitant hyperkalemia and acute kidney injuryrecheck shows numbers to be stable not climbing. I suspect the hyp erkalemia/HARJINDER are due to poor p.o. intake in addition to her home meds (ARB, diuretic, and spironolactone are all now on hold). Follow labs with IV fluids (3) Hypotension: Plan: mild, and fortunately asymptomatic. Has already gotten a unit of blood now, follow on IV fluids. Should she become tachycardic or symptomaticobviously fluid bolus and/or an additional unit of blood (4) B-cell lymphoma: Plan: see aboveis not entirely clear how much of the lymphoma itself and/or lymphoma treatments may be provoking her anemia compared to the iron deficiency as wellwill discuss with hematology (5) DVT prophylaxis: Plan: thrombocytopenia precludes pharmacologic prophylaxis. SCDs ordered (6) Discharge planning issues: Plan: came from [facility], anticipate she will return there. Admission and Anticipated Discharge Date Admission Date: September 08, 2024 History of Present Illness Chief Complaint: weakness Primary Care Provider: Liana Perdomo DO Patient is a very pleasant 73-year-old female known to me from an admission recently who comes in with weakness. She notes that she has been getting weaker. She had a blood transfusion on Sundaynormally she feels better after transfusions but really did not feel much better after that. She also notes poor p.o. intake, poor appetite, not able to eat and drink very well. Was continuing to take her medications. [facility] Here she was also found to have an HARJINDER and hyperkalemia. She denies any visible blood lossno blood in her stool, etc. She also denies any infectious symptoms such as fevers chills or sweats. She notes that while she does still have some fecal incontinence it is far better than it was. Allergies Allergy/AdvReac Type Severity Reaction Status Date / Time cat dander Allergy Intermediate ITCHY Verified 09/05/24 15:45 EYES, SNEEZING, CONGESTION lisinopril Allergy Mild Cough Verified 09/05/24 15:45 Sulfa (Sulfonamide AdvReac Intermediate NAUSEA Verified 09/05/24 15:45 Antibiotics) codeine AdvReac Mild Vomiting Verified 09/05/24 15:45 Home Medications Medication Instructions Recorded Confirmed Type aspirin 81 mg tablet,delayed 81 mg PO HS 10/18/18 09/05/24 History release (Ecotrin Low Strength) pen needle, diabetic 31 gauge x #100 ea 05/15/22 08/21/24 Rx 3/16" (BD Ultra-Fine Mini Pen Needle) albuterol sulfate 90 mcg/actuation 2 puff inhalation Q6H PRN 02/26/23 09/05/24 Rx aerosol inhaler shortness of breath or wheezing #8.5 grams blood-glucose meter,continuous #3 ea 05/01/23 08/21/24 Rx (Dexcom G7 Tank Furnace Operator) blood-glucose sensor (Dexcom G7 #9 ea 05/01/23 08/21/24 Rx Sensor device) tramadol 50 mg tablet 50 mg PO Q6H PRN pain #20 tabs 03/11/24 09/05/24 Rx docusate sodium 100 mg capsule 100 mg PO DAILY PRN Constipation 04/02/24 09/05/24 History (Colace) polyethylene glycol 3350 17 17 g PO DAILY PRN constipation 04/16/24 09/05/24 Rx gram/dose oral powder (Miralax) #119 grams bisacodyl 5 mg tablet,delayed 5 mg PO DAILY PRN Constipation 05/07/24 09/05/24 History release prochlorperazine maleate 10 mg 10 mg PO Q6H PRN Nausea 05/07/24 09/05/24 History tablet (Compazine) lorazepam 0.5 mg tablet 0.5 mg PO HS PRN anxiety #20 tabs 05/08/24 09/05/24 Rx empagliflozin 10 mg tablet 10 mg PO QAM 05/12/24 09/05/24 History (Jardiance) insulin aspart U-100 100 unit/mL 0 unit subcut TID PRN if premeal 05/12/24 09/05/24 History (3 mL) subcutaneous pen (Novolog blood sugars greater than 250 FlexPen U-100 Insulin aspart) sennosides 8.6 mg tablet 8.6 mg PO DAILY PRN Diarrhea 05/12/24 09/05/24 History miscellaneous medical supply #1 ea 05/13/24 08/21/24 Rx potassium chloride 20 mEq 20 meq PO BID #60 tabs 05/17/24 09/05/24 Rx tablet,extended release(part/cryst) acyclovir 400 mg tablet 400 mg PO BID #60 tabs 06/06/24 09/05/24 Rx metformin 1,000 mg tablet 1,000 mg PO BID #180 tabs 06/16/24 09/05/24 Rx levofloxacin 750 mg tablet 750 mg PO DAILY 07/01/24 09/05/24 History losartan 25 mg tablet 25 mg PO QAM #90 tabs 07/01/24 09/05/24 Rx sulfamethoxazole-trimethoprim 1 tab PO .3XWEEKLY 07/01/24 09/05/24 History [Bactrim] semaglutide 1 mg/dose (4 mg/3 mL) 1 mg (0.75 mL) subcut WK #3 mL 07/03/24 09/05/24 Rx subcutaneous pen injector (Ozempic) carvedilol 12.5 mg tablet 12.5 mg PO BID #180 tabs 07/15/24 09/05/24 Rx loratadine 10 mg tablet (Claritin) 10 mg PO DAILY PRN chemo 07/16/24 09/05/24 History loperamide 2 mg capsule 2 mg PO Q6H PRN Diarrhea 08/12/24 09/05/24 History furosemide 40 mg tablet 40 mg PO DAILY 08/18/24 09/05/24 History spironolactone 25 mg tablet 25 mg PO DAILY #30 tabs 08/18/24 09/05/24 Rx ondansetron 8 mg disintegrating 8 mg PO Q8H Encephalopathy #0 tabs 08/29/24 09/05/24 Rx tablet phenazopyridine 200 mg tablet 200 mg PO TID PRN pain 7 days #21 08/29/24 09/05/24 Rx (Pyridium) tabs vibegron 75 mg tablet (Gemtesa) 75 mg PO DAILY 30 days #30 tabs 08/29/24 09/05/24 Rx pantoprazole 40 mg tablet,delayed See Rx Instructions .Route 09/04/24 09/05/24 Rx release .COMPLEX #30 tabs rosuvastatin 20 mg tablet 20 mg PO HS #90 tabs 09/08/24 Rx Past Med/Surg History Problem List (Updated 09/08/24 @ 19:56 by Rojelio Egan DO) Discharge planning issues DVT prophylaxis Hypocalcemia (Acute) Acute dehydration (Acute) Hypomagnesemia (Acute) Acute UTI (Acute) Weakness (Acute) Anemia (Acute) Hypotension (Acute) B-cell lymphoblastic leukemia (Acute) Anemia (Acute) B-cell lymphoma (Acute) Cardiomyopathy Hypokalemia Urinary tract infection (Acute) Pancytopenia (Acute) Arthritis of left hip Atrial flutter Anticoagulant long-term use Unspecified atrial fibrillation MAVERICK (iron deficiency anemia) Cardiac pacemaker Diastolic congestive heart failure, NYHA class 2 Vitamin D deficiency Chronic kidney disease, stage 3a Anemia has had eliquis on hold since 12/05/23 - pt has been receiving iron infusion and 3 blood transfusions since November 2023. Pleural effusion (Acute) Third degree heart block (Acute) reason for pacemaker Mediastinal adenopathy Sarcoid Diabetes mellitus, type II, insulin dependent Chronic cystitis (Acute) Essential hypertension (Acute) Microalbuminuria (Acute) Mitral regurgitation (Acute) Recurrent UTI (Acute) Tricuspid regurgitation (Acute) Trigger finger, acquired (Acute) Venous insufficiency (Acute) Morbid obesity (Chronic) Hyperlipidemia (Chronic) MAX (obstructive sleep apnea) (Chronic) cpap nightly LVH (left ventricular hypertrophy) (Chronic) Aortic stenosis (Chronic) mild calcific aortic stenosis noted on [address] [facility] in 2019. 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 (Chronic) roasterman current use of insulin (Chronic) Medical History Overflow diarrhea Dysuria Low hemoglobin Diarrhea Acute UTI COVID-19 Hypokalemia HFrEF (heart failure with reduced ejection fraction) Generalized weakness Type 2 diabetes mellitus Non-Hodgkin's lymphoma B-cell lymphoma TREATMENT FOR 1 YEAR *R-CHOP (LAST TX 2018) Gastritis due to bacteria h.pylori positive gastritis; following with GI Tricuspid regurgitation mild per 10/02/23 ECHO History of GI bleed Eliquis on hold as result; GI currently working up; had EGD 12/2023 Coronary artery disease severe RCA stenosis per cath 07/05/22; med mgmt recommended Anemia has had eliquis on hold since 12/05/23 - pt has been receiving iron infusion and 3 blood transfusions since November 2023 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 Aortic stenosis mod-severe per 10/02/23 ECHO LVH (left ventricular hypertrophy) MAX (obstructive sleep apnea) cpap nightly Hyperlipidemia Venous insufficiency Mitral regurgitation mod-severe per 10/02/23 ECHO HTN (hypertension) Chronic cystitis Hx of sarcoidosis follows with Chronic kidney disease (CKD), stage III (moderate) Vitamin D deficiency Diastolic congestive heart failure, NYHA class 2 follows with heart failure clinic Unspecified atrial fibrillation cardioversion 09/2023 [facility] Atrial flutter cardioversion 09/2023 [facility] History of ventricular tachycardia 7 sec run of NSVT per 01/13/24 pacer report. per Cardio comments: "continue to monitor" History of third degree heart block reason for pacemaker Abnormal findings on esophagogastroduodenoscopy (EGD) 12/2023: h.pylori gastritis, hernia History of cardioversion 09/[address] [facility] - successful. History of COVID-12 March 2021 - cold symptoms. no current issues Hx of cancer of uterus s/p hyster 2005 History of B-cell lymphoma treatment for 1 year in 2019 *R-CHOP. Recurrence noted in LN on 03/10/24 bronchoscopy Diabetes mellitus, type 2 IDDM Neuropathy Pacemaker Medtronic pacer placed 11/2021 for complete heart block. follows with [facility], last checked 12/2023 Mediastinal lymphadenopathy Surgical History Port-A-Cath in place (04/02/24) Insertion Access Port with Fluoroscopy(Not Applicable) - Eddie Pineda DO, FACS Status post PICC central line placement Right IJ port placed for chemo 2018 (subsequently removed) S/P trigger finger release right hand History of cardiac catheterization 06/2022 [facility] - sob - no stents History of removal of Port-a-Cath Remove Access Port(Right) - Eddie Pineda DO, FACS [id number] H/O breast biopsy benign H/O total hysterectomy MAYITO and BSO 2006 History of tooth extraction History of cataract surgery bilateral History of bronchoscopy Status post placement of cardiac pacemaker 11/28/21 H/O excision of mass left neck (lymphoma) History of total knee arthroplasty bilateral History of tonsillectomy and adenoidectomy H/O colonoscopy Family History Grandfather (Maternal) Family history of diabetes mellitus Family/Other Family history of diabetes mellitus Father Myocardial infarction Family history of esophageal cancer Other No family history of adverse response to anesthesia Denies family history of Ovarian cancer Prostate cancer Breast cancer Colorectal cancer Social History Smoking Status: Never smoker Second Hand Exposure: Yes (hx); Do You Dip or Chew Tobacco: No; Hx Alcohol Use: No Hx Substance Use: No Preferred Language: Czech Communication Ability: Effective Visual Impairment: No Limitations Hearing Ability: Normal Bottle Dealer Required: No Beliefs That Will Affect Care: None marital status: Current Living Situation: Alone, Personal Care Facility and Rehab Current Living Situation Comment: Came from [facility] current occupational status: employed 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 HEENT normocephalic atraumatic mucous membranes moist. Cardio is regular without rubs murmurs or gallops. Lungs are clear to auscultation bilaterally no rales rhonchi or wheezes no accessory muscle use good effort. Abdomen is soft nondistended nontender no masses organomegaly. Extremities without sinus clubbing or edema no calf tenderness. Neuro without focal deficits. Labs and diagnostics noted. Results & Data Results & Data Vital Signs (Past 12 Hours) Vital Signs Temp Pulse Resp BP BP Pulse Ox Pulse Ox 09/08/24 17:02 99.1 F 18 102/65 99 09/08/24 17:02 99 09/08/24 17:00 09/08/24 17:00 99.0 F 18 101/63 99 09/08/24 17:00 99.1 F 65 18 102/65 99 09/08/24 16:30 99.1 F 66 18 101/63 09/08/24 16:15 97.9 F 65 18 84/48 L 99 09/08/24 15:55 97.3 F L 61 16 79/48 L 99 09/08/24 15:34 90/54 L 09/08/24 15:33 68 20 09/08/24 15:06 60 14 96 09/08/24 15:01 85/50 L 09/08/24 14:48 60 15 97 09/08/24 14:46 89/52 L 09/08/24 14:27 60 21 100 09/08/24 14:24 60 22 99 09/08/24 14:16 88/55 L 09/08/24 14:12 61 19 98 09/08/24 14:09 61 18 95 09/08/24 14:00 77/49 L 09/08/24 13:54 83 17 62 L 09/08/24 13:46 81/55 L 09/08/24 13:45 60 14 99 09/08/24 13:33 96 09/08/24 13:31 75/49 L 09/08/24 13:21 96 09/08/24 13:21 09/08/24 13:18 66 18 97 09/08/24 13:15 76/45 L 09/08/24 13:13 09/08/24 13:13 98.8 F 70 18 77/47 L 96 09/08/24 13:10 77/47 L 09/08/24 13:10 70 O2 Del Method O2 Del Method O2 Flow Rate O2 Flow Rate 09/08/24 17:02 Room Air 09/08/24 17:02 Room Air 0 09/08/24 17:00 Room Air 09/08/24 17:00 Room Air 0 09/08/24 17:00 0 09/08/24 16:30 09/08/24 16:15 09/08/24 15:55 09/08/24 15:34 09/08/24 15:33 09/08/24 15:06 09/08/24 15:01 09/08/24 14:48 09/08/24 14:46 09/08/24 14:27 09/08/24 14:24 09/08/24 14:16 09/08/24 14:12 09/08/24 14:09 09/08/24 14:00 09/08/24 13:54 09/08/24 13:46 09/08/24 13:45 09/08/24 13:33 09/08/24 13:31 09/08/24 13:21 09/08/24 13:21 Room Air 09/08/24 13:18 09/08/24 13:15 09/08/24 13:13 Room Air 09/08/24 13:13 Room Air 09/08/24 13:10 09/08/24 13:10 Code Status & VTE Plan VTE Prophylaxis Plan VTE Prophylaxis will be ordered: Yes PG Care Time/CCT Total # of Minutes Spent Total Time Spent with Patient: Total time spent is greater than 50% in coordination of care (as documented) at patient's floor/unit and/or counseling patient: Coding Level of Care Code 81234 INT INP/OBS CARE 3/75MIN Diagnoses Anemia D64.9 Anemia type: unspecified type Acute dehydration E86.0 Hypotension I95.9 Hypotension type: unspecified hypotension type B-cell lymphoma C85.10 DVT prophylaxis Z29.9 Discharge planning issues Z75.8 (1) Anemia Anemia type: unspecified type Qualified Code(s): D64.9 - Anemia, unspecified (3) Hypotension Hypotension type: unspecified hypotension type Qualified Code(s): I95.9 - Hypotension, unspecified
[2024-09-08 19:18] LABS: BUN Creatinine Ratio 17.5 (10-20); Calcium 7.8 mg/dl (8.6-10.3); Creatinine Clr Calc Pharmacy 27.2 ml/min; Potassium 5.6 mmol/L (3.5-5.1)
[2024-09-08] MEDS: IRON SUCROSE 200 MG in SODIUM CHLORIDE 0.9% 100 ML IV ONE (19:22)
[2024-09-08] MEDS: SODIUM CHLORIDE 0.45 % 1,000 ML IV SCH (19:22)
[2024-09-08] MEDS: SULFAMETHOXAZOLE/TRIMETHOPRIM DS 800/160MG TAB PO SCH (19:22)
[2024-09-08] MEDS: ACYCLOVIR 400 MG TAB PO SCH (20:20)
[2024-09-08] MEDS: ROSUVASTATIN CALCIUM 20 MG TAB PO SCH (20:20)
[2024-09-08] MEDS: ASPIRIN 81 MG ECTAB PO SCH (20:21)
[2024-09-08 20:38] LABS: Hematocrit (blood only) 23.6 % (37.0-47.0); Hemoglobin 7.6 g/dl (12.0-16.0)
[2024-09-08 20:52] LABS: Albumin Globulin Ratio 1.3 (0.9-2); Albumin Level 2.5 gm/dl (3.4-5.0); BUN Creatinine Ratio 17.6 (10-20); Bilirubin,Total 0.9 mg/dl (0.2-1.0); Calcium 7.7 mg/dl (8.6-10.3); Creatinine Clr Calc Pharmacy 27.4 ml/min; Globulin 1.9 gm/dl (2.5-4.0); Potassium 5.5 mmol/L (3.5-5.1); Total Protein 4.4 gm/dl (6.0-8.3)
[2024-09-08 21:00] LABS: Troponin I High Sensitivity 311.8 pg/ml (0-14)
[2024-09-08] MEDS: SODIUM CHLORIDE 0.9% 500 ML IV ONE (21:02)
--- OUTSIDE RECORDS SUMMARY | 2024-09-08 21:59 | External Medical Summary | Continuity Of Care Document ---
Author Name Unknown Address [address] [address] Organization [facility] [place] () Care Team Providers Care Doll Surgeon Name Role Phone DO Perdomo Amy Primary Care Provider [phone] Allergies Allergy Reaction Start Date End Date Status CAT DANDER Active LISINOPRIL Active SULFA (SULFONAMIDE ANTIBIOTICS) 00/0 Active CODEINE Active Medications Medication Instructions Dosage Start Date End Date Status Order Date Drug Code Frequency Route of Admin Diagnosis Code Substitutions Allowed Tubersol 5 tub. unit/0.1 mL intradermal injection solution [Tuberculin PPD] 0.1 mL Intradermal 1 time For PPD Step 1 GIVE on Day 1 and read results Day 3 0.1 mL 09/01 Inactiv e 2023 84222 93145 0 1 time Intrad ermal False Tubersol 5 tub. unit/0.1 mL intradermal injection solution [Tuberculin PPD] 0.1mL Intradermal 1 time For PPD 2nd Step Give 2nd Step PPD Day 1 and Read results Day 3 (schedule 7 days after 1st READ) 0.1mL 09/10 Active 2023 75736 29062 0 1 time Intrad ermal False Tylenol 325 mg tablet 2 tabs By Mouth Every 4 hours as needed For Pain DO NOT EXCEED 3000 MG APAP/24 Hours 2 tabs 09/02 Inactiv e 2023 52911 79498 0 Every 4 hours as needed By Mouth False Tylenol 325 mg tablet 2 tabs By Mouth Every 4 hours as needed For Fever >100 DO NOT EXCEED 3000 MG APAP/24 Hours 2 tabs 2023 0000 /0000 Active 2023 28968 20399 0 Every 4 hours as needed By Mouth False Dulcolax (bisacodyl) 10 mg rectal suppository One Suppository per rectum PRN if Milk of Magnisia ineffective. Give on day 5 of no BM 1 sup 2023 Active 2023 38511 58726 1 Daily as needed Rectal False Fleet Enema 19 gram-7 gram/118 mL Administer per rectum PRN one time if dulcolax suppository not effective. Give on day 6 of no BM 1 2023 Active 2023 07529 49574 6 Daily as needed Rectal False Dextrose 50 % in water (D50W) intravenous solution [generic] Dextrose 50% jose manuel 20-50 ml (slow push) Intravenous if Glucagon not effective after 15 minutes. CALL 911 for ED Evaluation. 50% jose manuel 2023 Active 2023 60573 08017 9 Intrav enous False Glucagon (HCl) Emergency Kit 1 mg solution for injection Administer Glucagon 1 mg Intramuscular if 15 minutes after GLucose Gel is administered Glucose remains less than 70 1 mg 2023 Active 2023 42454 74486 2 Intram uscula r False Glucose Gel 40 % oral gel [Dextrose] PRN If resident is unable to swallow (with or without symptoms) and Glucose results less than 70 give GLucose 40% Gel 1 tube orally - Recheck Glucose 15 minutes after administratio n. 1 tube 2023 Active 2023 43511 04094 8 By Mouth False Santyl 250 unit/gram topical ointment dose Topical Once daily to wound bed daily with wound care For Unstageable Pressure injury dose 2023 Active 2023 64635 76968 0 Once daily Topica l False Fluconazole 200 mg tablet [generic] 1 tab By Mouth Once daily For Yeast infection 1 tab 09/01 Inactiv e 2023 43863 97102 3 Once daily By Mouth False Phenazopyri dine 200 mg tablet [generic] 1 tab By Mouth Three times daily as needed For pain 1 tab 09/02 Inactiv e 2023 09252 82468 1 Three times daily as needed By Mouth False Aspirin 81 mg tablet,zaki yed release [generic] 1 tab By Mouth At bedtime For CAD 1 tab 2023 Active 2023 30238 90036 9 At bedtime By Mouth False BD AutoShield Duo Pen Needle 30 gauge x 3/16in 1 4 times a day subcutaneous 4 times a day change needle wqith every use of insulin For Type 2 diabetes Mellitus 1 2023 Active 2023 88302 82508 5 4 times a day Subcut aneous False Albuterol sulfate HFA 90 mcg/actuati on aerosol inhaler [generic] 2 puff Inhalation Every 6 hours as needed For SOB or wheezing 2 puff 2023 Active 2023 66216 14743 2 Every 6 hours as needed Inhala tion False Tramadol 50 mg tablet [generic] 1 tab By Mouth Every 6 hours as needed For pain 1 tab 09/02 Inactiv e 2023 05919 79460 0 Every 6 hours as needed By Mouth False Docusate sodium 100 mg tablet [generic] 1 tab Daily as needed For constipation 1 tab 2023 Active 2023 32450 15097 1 Daily as needed By Mouth False Senna Laxative 8.6 mg tablet 1 tab By Mouth Daily as needed For constipation 1 tab 2023 Active 2023 45714 22298 0 Daily as needed By Mouth False Potassium chloride ER 20 mEq tablet,exte nded release [generic] 1 tab By Mouth Twice daily For hypokalemia 1 tab 2023 Active 2023 50684 13311 1 Twice daily By Mouth False Acyclovir 400 mg tablet [generic] 1 tab By Mouth Twice daily For preventative B-cell lymphoma 1 tab 2023 Active 2023 18273 01924 1 Twice daily By Mouth False Pantoprazol e 40 mg tablet,zaki yed release [generic] 1 tab By Mouth Once daily For gerd 1 tab 09/02 Inactiv e 2023 09114 53049 0 Once daily By Mouth False Metformin 1,000 mg tablet [generic] 1 tab By Mouth Twice daily For DM2 1 tab 09/02 Inactiv e 2023 08041 43700 0 Twice daily By Mouth False Rosuvastati n 20 mg tablet [generic] 1 tab By Mouth At bedtime For hyperlipdemia 1 tab 2023 Active 2023 16340 94804 0 At bedtime By Mouth False Polyethylen e glycol 3350 (bulk) powder [generic] 17 g By Mouth Daily as needed For constipation 17 g 2023 Active 2023 70370 65972 1 Daily as needed By Mouth False Prochlorper azine maleate 10 mg tablet [generic] 1 tab By Mouth Every 6 hours as needed For nausea 1 tab 09/02 Inactiv e 2023 32230 10441 1 Every 6 hours as needed By Mouth False Bisacodyl 5 mg tablet,zaki yed release [generic] 1 tab By Mouth Daily as needed For constipation 1 tab 2023 Active 2023 50664 96068 1 Daily as needed By Mouth False Lorazepam 0.5 mg tablet [generic] 1 tab By Mouth At bedtime as needed For anxiety 1 tab 09/02 Inactiv e 2023 73093 53727 1 At bedtime as needed By Mouth False Insulin glargine (U-300) conc. 300 unit/mL (3 mL) subcutaneou s pen [generic] 40 units Subcutaneous At bedtime For DM2 40 units 09/02 Inactiv e 2023 02303 57165 2 At bedtime Subcut aneous False Jardiance 10 mg tablet 1 tab By Mouth Once daily For DM2 1 tab 2023 Active 2023 68091 01643 7 Once daily By Mouth False Insulin aspart (U-100) 100 unit/mL (3 mL) subcutaneou s pen [generic] Subcutaneous 3 times a day <70 initiate Hypoglycemic Protocol 70 thru 200 HOLD 150-199 give 0.0 200 thru 250 give 2.0 Units 251 thru 299 give 3.0 Units 300 thru 350 give 4.0 Units 351 thru 400 give 5.0 Units >400 Call Provider for one time order For diabetes 2023 Active 2023 64773 31159 5 3 times a day Subcut aneous False Sulfamethox azole 800 mg-trimetho prim 160 mg tablet [generic] 1 tab By Mouth 3 times a week on sunday, sunday, sunday For UTI 1 tab 09/02 Inactiv e 2023 52944 25181 1 3 times a week By Mouth False Gemtesa 75 mg tablet 75mg By Mouth Once daily For urinary management 75mg 2023 Active 2023 55677 16151 7 Once daily By Mouth False Losartan 25 mg tablet [generic] 25mg By Mouth Once daily For HTN 25mg 09/07 Inactiv e 2023 16437 64712 9 Once daily By Mouth False Ozempic 1 mg/dose (4 mg/3 mL) subcutaneou s pen injector 1mg Subcutaneous Every week For diabetes 1mg 09/04 Inactiv e 2023 48752 30494 3 Every week Subcut aneous False Carvedilol 12.5 mg tablet [generic] 12.5mg By Mouth Twice daily For CAD 12.5mg 09/07 Inactiv e 2023 50411 25050 0 Twice daily By Mouth False Loratadine 10 mg tablet [generic] 10 By Mouth Once daily As Needed For CHEMO 10 09/02 Inactiv e 2023 69093 62363 9 Once daily By Mouth False Loperamide 2 mg tablet [generic] 2mg By Mouth Every 6 hours As Needed For diarrhea 2mg 2023 Active 2023 27531 83384 6 Every 6 hours By Mouth False Spironolact one 25 mg tablet [generic] 25mg By Mouth Once daily For HTN 25mg 09/04 Inactiv e 2023 20757 11698 1 Once daily By Mouth False Lasix 40 mg tablet 40 By Mouth Once daily For htn 40 09/04 Inactiv e 2023 09129 87098 1 Once daily By Mouth False Ondansetron HCl 8 mg tablet [generic] 8mg By Mouth Every 8 hours For Encephalopath y 8mg 09/02 Inactiv e 2023 60026 94783 0 Every 8 hours By Mouth False Levofloxaci n 750 mg tablet [generic] 750 mg By Mouth Once daily For UTI 750 mg 09/02 Inactiv e 2023 28887 50489 6 Once daily By Mouth False Miralax 17 gram/dose oral powder 17grams By Mouth Once daily For constipation 17grams 09/03 Inactiv e 2023 36889 86484 0 Once daily By Mouth False Sulfamethox azole 800 mg-trimetho prim 160 mg tablet [generic] 09/02 Inactiv e 2023 16929 99075 1 Sulfamethox azole 800 mg-trimetho prim 160 mg tablet [generic] 1 tab By Mouth 3 times a week on sunday, sunday, sunday For UTI 1 tab 09/02 Inactiv e 2023 82080 20525 1 3 times a week By Mouth False Sulfamethox azole 800 mg-trimetho prim 160 mg tablet [generic] 09/02 Inactiv e 2023 59289 23762 1 Sulfamethox azole 800 mg-trimetho prim 160 mg tablet [generic] 1 tab By Mouth 3 times a week on sunday, sunday, sunday For UTI 1 tab 2023 00/00 /0000 Active 2023 05670 54118 1 3 times a week By Mouth False Polyethylen e glycol 3350 17 gram/dose oral powder [generic] 17 grams By Mouth Once daily For contispation 17 grams 09/04 Inactiv e 2023 09473 08511 4 Once daily By Mouth False Posaconazol e 100 mg tablet,zaki yed release [generic] 300mg By Mouth Once daily For Antifungal 300mg 09/18 Active 2023 33452 40662 0 Once daily By Mouth False Senna 8.6 mg tablet 2 tabs By Mouth Twice daily For contispation 2 tabs 2023 Active 2023 00177 00081 1 Twice daily By Mouth False ProSource No Carb 15 gram-60 kcal/30 mL oral liquid 30 ml By Mouth Once daily For Wound - Note total ml consumed 30 ml 2023 Active 2023 86530 46631 5 Once daily By Mouth False Levofloxaci n 500 mg tablet [generic] 500 mg By Mouth Once daily For Prophylaxis 500 mg 2023 Active 2023 86502 83478 8 Once daily By Mouth False Mirtazapine 7.5 mg tablet [generic] 7.5 mg By Mouth Once daily For Depression 7.5 mg 2023 Active 2023 65303 43710 5 Once daily By Mouth False Prochlorper azine maleate 10 mg tablet [generic] 09/02 Inactiv e 2023 31348 52531 1 Prochlorper azine maleate 10 mg tablet [generic] 1 tab By Mouth Every 6 hours as needed For nausea 1 tab 09/16 Active 2023 57183 22209 1 Every 6 hours as needed By Mouth False Ondansetron HCl 8 mg tablet [generic] 09/02 Inactiv e 2023 26088 36112 0 Ondansetron HCl 8 mg tablet [generic] 8mg By Mouth Every 8 hours For Nausea 8mg 2023 Active 2023 23020 75224 0 Every 8 hours By Mouth False Lorazepam 0.5 mg tablet [generic] 09/02 Inactiv e 2023 25709 31010 1 Lorazepam 0.5 mg tablet [generic] 1 tab By Mouth At bedtime as needed For anxiety 1 tab 09/02 Inactiv e 2023 64785 18641 1 At bedtime as needed By Mouth False Loratadine 10 mg tablet [generic] 09/02 Inactiv e 2023 01654 68320 9 Loratadine 10 mg tablet [generic] 10 By Mouth Once daily As Needed For when receiving chemotherapy 10 202300 Active 2023 18453 50566 9 Once daily By Mouth False Tramadol 50 mg tablet [generic] 09/02 Inactiv e 2023 25278 28828 0 Tramadol 50 mg tablet [generic] 1 tab By Mouth Every 6 hours as needed For moderate/mynor re pain 1 tab 09/02 Inactiv e 2023 90336 40299 0 Every 6 hours as needed By Mouth False Phenazopyri dine 200 mg tablet [generic] 09/02 Inactiv e 2023 48330 91164 1 Phenazopyri dine 200 mg tablet [generic] 1 tab By Mouth Three times daily as needed For bladder pain 1 tab 202300 / Active 2023 65671 01867 1 Three times daily as needed By Mouth False Tylenol 325 mg tablet 09/02 Inactiv e 2023 30040 79737 0 Tylenol 325 mg tablet 2 tabs By Mouth Every 4 hours as needed For DO NOT EXCEED 3000 MG APAP/24 Hours For mild Pain 2 tabs 202300 /0000 Active 2023 90423 53237 0 Every 4 hours as needed By Mouth False Metformin 1,000 mg tablet [generic] 09/02 Inactiv e 2023 81427 79538 0 Metformin 1,000 mg tablet [generic] 1 tab By Mouth Twice daily with meals For DM2 1 tab 2023 Active 2023 35203 78165 0 Twice daily By Mouth False Pantoprazol e 40 mg tablet,zaki yed release [generic] 09/02 Inactiv e 2023 31803 31840 0 Pantoprazol e 40 mg tablet,zaki yed release [generic] 1 tab By Mouth Once daily For gerd 1 tab 2023 Active 2023 21339 64583 0 Once daily By Mouth False Tramadol 50 mg tablet [generic] 09/02 Inactiv e 2023 14250 82019 0 Tramadol 50 mg tablet [generic] 1 tab By Mouth Every 6 hours as needed For moderate/mynor re pain 1 tab 2023 Active 2023 04292 25292 0 Every 6 hours as needed By Mouth False Lorazepam 0.5 mg tablet [generic] 09/02 Inactiv e 2023 27416 04212 1 Lorazepam 0.5 mg tablet [generic] 1 tab By Mouth At bedtime as needed For anxiety 1 tab 2023 Active 2023 01709 16707 1 At bedtime as needed By Mouth False Polyethylen e glycol 3350 17 gram/dose oral powder [generic] 17 grams By Mouth Daily as needed PRN For order changed to PRN daily forcontispati on 17 grams 2023 Active 2023 89933 72112 4 Daily as needed By Mouth False Spironolact one 25 mg tablet [generic] 12.5 mg By Mouth Once daily For ESSENTIAL (PRIMARY) HYPERTENSION 12.5 mg 2023 Active 2023 06449 59599 1 Once daily By Mouth I10. False Furosemide 20 mg tablet [generic] 20 mg By Mouth Once daily For UNSPECIFIED SYSTOLIC (CONGESTIVE) HEART FAILURE 20 mg 2023 Active 2023 41130 24738 0 Once daily By Mouth I50.20 False Carvedilol 12.5 mg tablet [generic] 09/07 Inactiv e 2023 54779 41724 0 Carvedilol 12.5 mg tablet [generic] 12.5mg By Mouth Twice daily For CAD hold for systolic b/p less than 100 12.5mg 2023 Active 2023 21021 26810 0 Twice daily By Mouth False Losartan 25 mg tablet [generic] 09/07 Inactiv e 2023 55882 15286 9 Losartan 25 mg tablet [generic] 25mg By Mouth Once daily For HTN 25mg 2023 Active 2023 33777 98720 9 Once daily By Mouth False Unstageable with Drainage wwound bed Topical Once daily Site Coccyx Cleanse with dakins 25%pat dry, apply SANTYL, cover with border gauze For wound care wwound bed 2023 Active 2023 Once daily Topica l False Problems Code Description Start Date End Date Status N39.0 Urinary tract infection, site not specified 02/2024 Active U07.1 COVID-19 08/29/2024 Active I50.20 Unspecified systolic (congestive) heart failure 08/29/2024 Active I25.10 Atherosclerotic hear t disease of [place] coronary artery without angina pectoris 08/29/2024 Active E11.9 Type 2 diabetes mellitus without complications 08/29/2024 Active I10. 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 08/29/2024 Active M13.80 Other specified arthritis, unspecified site 02/2024 Active G47.33 Obstructive sleep apnea (adult) (pediatric) 02/2024 Active VITAL SIGNS Date Time Diastolic blood pressure Systolic blood pressure Body height Body weight Temperature SpO2 Blood Sugar Pulse Respirations 206 34177 1 64.00 mm[Hg] - Sitting 109.00 mm[Hg] - Sitting 98.70 Tympanic 90.00 % 64.00/ min 16.00/min 08180 206 45161 0 178.60 NI 74115 206 55798 6 63 NI 66323 206 27273 4 72.00 mm[Hg] - Sitting 121.00 mm[Hg] - Sitting 100.40 Forehead Scan 92.00 % 60.00/ min 18.00/min 68866 206 85238 8 72.00 mm[Hg] - Sitting 121.00 mm[Hg] - Sitting 100.40 Tympanic 77701 206 58261 9 60.00/ min 18.00/min 08778 206 28231 5 148.00 mg/dL 26905 207 64093 7 63.00 mm[Hg] - Sitting 122.00 mm[Hg] - Sitting 100.40 Tympanic 60.00/ min 18.00/min 08369 207 47672 7 55.00 mm[Hg] - Sitting 104.00 mm[Hg] - Sitting 98.40 Forehead Scan 96.00 % 66.00/ min 18.00/min 38706 207 61680 5 120.00 mg/dL 207 07036 6 101.00 mg/dL 207 55168 8 63.00 mm[Hg] - Sitting 122.00 mm[Hg] - Sitting 36341 207 70359 7 134.00 mg/dL 207 90218 9 134.00 mg/dL 99784 207 83538 0 127.00 mg/dL 34317 207 79661 7 127.00 mg/dL 207 63559 9 122.00 mg/dL 44424 208 23739 9 62.00 mm[Hg] - Sitting 106.00 mm[Hg] - Sitting 98.60 Tympanic 66.00/ min 18.00/min 38602 208 40679 3 117.00 mg/dL 03472 208 20107 2 155.00 mg/dL 56140 208 57260 6 98.60 Tympanic 58062 208 12829 1 123.00 mg/dL 94981 208 51890 2 123.00 mg/dL 51102 208 93482 4 62.00 mm[Hg] - Sitting 106.00 mm[Hg] - Sitting 80436 208 62092 7 123.00 mg/dL 41151 208 60602 1 123.00 mg/dL 58124 208 81566 7 136.00 mg/dL 15696 209 21325 0 60.00 mm[Hg] - Sitting 113.00 mm[Hg] - Sitting 98.50 Forehead Scan 98.00 % 61.00/ min 16.00/min 36864 209 93147 7 114.00 mg/dL 02923 209 91783 7 111.00 mg/dL 91729 209 19346 0 98.00 Tympanic 80271 209 87989 2 68.00 mm[Hg] - Sitting 118.00 mm[Hg] - Sitting 85458 209 45079 5 156.00 mg/dL 29740 209 44379 4 156.00 mg/dL 00053 209 35005 5 132.00 mg/dL 97572 209 67072 4 132.00 mg/dL 28215 209 07601 0 136.00 mg/dL 66962 210 45984 0 52.00 mm[Hg] - Sitting 119.00 mm[Hg] - Sitting 98.40 Forehead Scan 96.00 % 57.00/ min 18.00/min 84712 210 15929 9 107.00 mg/dL 94978 210 73461 7 108.00 mg/dL 94474 210 58719 8 97.00 Tympanic 27445 210 25131 2 126.00 mg/dL 91777 210 19170 0 126.00 mg/dL 28067 210 63874 9 126.00 mg/dL 72974 210 37345 2 154.00 mg/dL 09161 211 54425 0 53.00 mm[Hg] - Lying Down 104.00 mm[Hg] - Lying Down 98.90 Tympanic 93.00 % 60.00/ min 18.00/min 41017 211 53449 0 62.00 mm[Hg] - Sitting 72.00 mm[Hg] - Sitting 98.30 Tympanic 96.00 % 62.00/ min 18.00/min 43314 211 37939 9 136.00 mg/dL 76622 211 60387 8 131.00 mg/dL 57091 211 90463 3 118.00 mg/dL 27949 211 53672 9 130.00 mg/dL 43884 212 63483 7 46.00 mm[Hg] - Sitting 101.00 mm[Hg] - Sitting 98.50 Tympanic 96.00 % 62.00/ min 20.00/min 98931 212 09948 1 110.00 mg/dL 86012 212 89884 8 110.00 mg/dL 46201 212 68259 8 152.00 mg/dL 30620 212 82280 0 120.00 mg/dL 49578 213 24897 9 123.00 mg/dL 65175 213 82553 9 123.00 mg/dL 41008 213 59911 5 44769 213 59129 2 82921 213 95066 8 47923 213 77398 8 78285 213 38520 5 134.00 mg/dL 70836 214 58166 5 50.00 mm[Hg] - Sitting 108.00 mm[Hg] - Sitting 98.20 Tympanic 97.00 % 60.00/ min 20.00/min 64973 214 23495 0 53.00 mm[Hg] - Sitting 104.00 mm[Hg] - Sitting 97.80 Tympanic 97.00 % 61.00/ min 18.00/min 06161 214 67838 4 122.00 mg/dL 85143 214 72666 2 122.00 mg/dL 77485 214 89346 7 142.00 mg/dL 69384 214 50254 4 142.00 mg/dL 13673 214 35387 7 115.00 mg/dL 50049 214 69624 9 115.00 mg/dL 06074 214 82636 1 121.00 mg/dL 62896 215 13613 5 97.80 Forehead Scan 98.00 % 60.00/ min 18.00/min 44468 215 81604 6 46.00 mm[Hg] - Lying Down 85.00 mm[Hg] - Lying Down 15742 215 35969 5 130.00 mg/dL 20922 215 74174 8 130.00 mg/dL 36970 215 07974 5 130.00 mg/dL 215 76260 2 117.00 mg/dL 215 22056 3 138.00 mg/dL 216 16444 1 62.00 mm[Hg] - Lying Down 90.00 mm[Hg] - Lying Down 216 85051 3 94.00 mg/dL Immunizations Vaccine Date Status Influenza 08/29/2024 Completed (PCV13)Pneumococcal 08/29/2024 Completed
[2024-09-08] MEDS ORDERED: DAPTOmycin 375 MG in SYRINGE 0 ML IV SCH (22:00)
--- OUTSIDE RECORDS SUMMARY | 2024-09-08 22:00 | External Medical Summary | Continuity Of Care Document ---
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 unit/0.1 mL intradermal injection solution [Tuberculin PPD] 0.1mL Intradermal 1 time For PPD 2nd Step Give 2nd Step PPD Day 1 and Read results Day 3 (schedule 7 days after 1st READ) 0.1mL 09/10 Active 2023 73050 11089 0 1 time Intrad ermal False Tylenol 325 mg tablet 2 tabs By Mouth Every 4 hours as needed For Pain DO NOT EXCEED 3000 MG APAP/24 Hours 2 tabs 09/02 Inactiv e 2023 24909 99308 0 Every 4 hours as needed By Mouth False Tylenol 325 mg tablet 2 tabs By Mouth Every 4 hours as needed For Fever >100 DO NOT EXCEED 3000 MG APAP/24 Hours 2 tabs 2023 0000 /0000 Active 2023 08963 86785 0 Every 4 hours as needed By Mouth False Dulcolax (bisacodyl) 10 mg rectal suppository One Suppository per rectum PRN if Milk of Magnisia ineffective. Give on day 5 of no BM 1 sup 2023 Active 2023 45885 05560 1 Daily as needed Rectal False Fleet Enema 19 gram-7 gram/118 mL Administer per rectum PRN one time if dulcolax suppository not effective. Give on day 6 of no BM 1 2023 Active 2023 28518 16131 6 Daily as needed Rectal False Dextrose 50 % in water (D50W) intravenous solution [generic] Dextrose 50% jose manuel 20-50 ml (slow push) Intravenous if Glucagon not effective after 15 minutes. CALL 911 for ED Evaluation. 50% jose manuel 2023 Active 2023 66266 46173 9 Intrav enous False Glucagon (HCl) Emergency Kit 1 mg solution for injection Administer Glucagon 1 mg Intramuscular if 15 minutes after GLucose Gel is administered Glucose remains less than 70 1 mg 2023 Active 2023 60165 45931 2 Intram uscula r False Glucose Gel 40 % oral gel [Dextrose] PRN If resident is unable to swallow (with or without symptoms) and Glucose results less than 70 give GLucose 40% Gel 1 tube orally - Recheck Glucose 15 minutes after administratio n. 1 tube 2023 Active 2023 31157 71885 8 By Mouth False Santyl 250 unit/gram topical ointment dose Topical Once daily to wound bed daily with wound care For Unstageable Pressure injury dose 2023 Active 2023 47720 88473 0 Once daily Topica l False Fluconazole 200 mg tablet [generic] 1 tab By Mouth Once daily For Yeast infection 1 tab 09/01 Inactiv e 2023 61356 02960 3 Once daily By Mouth False Phenazopyri dine 200 mg tablet [generic] 1 tab By Mouth Three times daily as needed For pain 1 tab 09/02 Inactiv e 2023 36805 85922 1 Three times daily as needed By Mouth False Aspirin 81 mg tablet,zaki yed release [generic] 1 tab By Mouth At bedtime For CAD 1 tab 2023 Active 2023 59619 53591 9 At bedtime By Mouth False BD AutoShield Duo Pen Needle 30 gauge x 3/16in 1 4 times a day subcutaneous 4 times a day change needle wqith every use of insulin For Type 2 diabetes Mellitus 1 2023 Active 2023 09171 08970 5 4 times a day Subcut aneous False Albuterol sulfate HFA 90 mcg/actuati on aerosol inhaler [generic] 2 puff Inhalation Every 6 hours as needed For SOB or wheezing 2 puff 2023 Active 2023 09054 68859 2 Every 6 hours as needed Inhala tion False Tramadol 50 mg tablet [generic] 1 tab By Mouth Every 6 hours as needed For pain 1 tab 09/02 Inactiv e 2023 55298 18078 0 Every 6 hours as needed By Mouth False Docusate sodium 100 mg tablet [generic] 1 tab Daily as needed For constipation 1 tab 2023 Active 2023 07507 27814 1 Daily as needed By Mouth False Senna Laxative 8.6 mg tablet 1 tab By Mouth Daily as needed For constipation 1 tab 2023 Active 2023 37221 57336 0 Daily as needed By Mouth False Potassium chloride ER 20 mEq tablet,exte nded release [generic] 1 tab By Mouth Twice daily For hypokalemia 1 tab 2023 Active 2023 00365 80228 1 Twice daily By Mouth False Acyclovir 400 mg tablet [generic] 1 tab By Mouth Twice daily For preventative B-cell lymphoma 1 tab 2023 Active 2023 08842 81972 1 Twice daily By Mouth False Pantoprazol e 40 mg tablet,zaki yed release [generic] 1 tab By Mouth Once daily For gerd 1 tab 09/02 Inactiv e 2023 71538 69513 0 Once daily By Mouth False Metformin 1,000 mg tablet [generic] 1 tab By Mouth Twice daily For DM2 1 tab 09/02 Inactiv e 2023 62672 54858 0 Twice daily By Mouth False Rosuvastati n 20 mg tablet [generic] 1 tab By Mouth At bedtime For hyperlipdemia 1 tab 2023 Active 2023 30202 94688 0 At bedtime By Mouth False Polyethylen e glycol 3350 (bulk) powder [generic] 17 g By Mouth Daily as needed For constipation 17 g 2023 Active 2023 32258 96441 1 Daily as needed By Mouth False Prochlorper azine maleate 10 mg tablet [generic] 1 tab By Mouth Every 6 hours as needed For nausea 1 tab 09/02 Inactiv e 2023 62215 32639 1 Every 6 hours as needed By Mouth False Bisacodyl 5 mg tablet,zaki yed release [generic] 1 tab By Mouth Daily as needed For constipation 1 tab 2023 Active 2023 39480 90733 1 Daily as needed By Mouth False Lorazepam 0.5 mg tablet [generic] 1 tab By Mouth At bedtime as needed For anxiety 1 tab 09/02 Inactiv e 2023 67219 01355 1 At bedtime as needed By Mouth False Insulin glargine (U-300) conc. 300 unit/mL (3 mL) subcutaneou s pen [generic] 40 units Subcutaneous At bedtime For DM2 40 units 09/02 Inactiv e 2023 34169 25010 2 At bedtime Subcut aneous False Jardiance 10 mg tablet 1 tab By Mouth Once daily For DM2 1 tab 2023 Active 2023 27745 06542 7 Once daily By Mouth False Insulin [...] time order For diabetes 2023 Active 2023 24424 51822 5 3 times a day Subcut aneous False Sulfamethox azole 800 mg-trimetho prim 160 mg tablet [generic] 1 tab By Mouth 3 times a week on sunday, sunday, sunday For UTI 1 tab 09/02 Inactiv e 2023 67591 25112 1 3 times a week By Mouth False Gemtesa 75 mg tablet 75mg By Mouth Once daily For urinary management 75mg 2023 Active 2023 14492 58158 7 Once daily By Mouth False Losartan 25 mg tablet [generic] 25mg By Mouth Once daily For HTN 25mg 09/07 Inactiv e 2023 53976 45397 9 Once daily By Mouth False Ozempic 1 mg/dose (4 mg/3 mL) subcutaneou s pen injector 1mg Subcutaneous Every week For diabetes 1mg 09/04 Inactiv e 2023 32160 94144 3 Every week Subcut aneous False Carvedilol 12.5 mg tablet [generic] 12.5mg By Mouth Twice daily For CAD 12.5mg 09/07 Inactiv e 2023 11029 80041 0 Twice daily By Mouth False Loratadine 10 mg tablet [generic] 10 By Mouth Once daily As Needed For CHEMO 10 09/02 Inactiv e 2023 49941 70480 9 Once daily By Mouth False Loperamide 2 mg tablet [generic] 2mg By Mouth Every 6 hours As Needed For diarrhea 2mg 2023 Active 2023 66193 13217 6 Every 6 hours By Mouth False Spironolact one 25 mg tablet [generic] 25mg By Mouth Once daily For HTN 25mg 09/04 Inactiv e 2023 73825 02157 1 Once daily By Mouth False Lasix 40 mg tablet 40 By Mouth Once daily For htn 40 09/04 Inactiv e 2023 39523 77918 1 Once daily By Mouth False Ondansetron HCl 8 mg tablet [generic] 8mg By Mouth Every 8 hours For Encephalopath y 8mg 09/02 Inactiv e 2023 77353 70584 0 Every 8 hours By Mouth False Levofloxaci n 750 mg tablet [generic] 750 mg By Mouth Once daily For UTI 750 mg 09/02 Inactiv e 2023 76924 53442 6 Once daily By Mouth False Miralax 17 gram/dose oral powder 17grams By Mouth Once daily For constipation 17grams 09/03 Inactiv e 2023 12614 48341 0 Once daily By Mouth False Sulfamethox azole 800 mg-trimetho prim 160 mg tablet [generic] 09/02 Inactiv e 2023 16829 96814 1 Sulfamethox azole 800 mg-trimetho prim 160 mg tablet [generic] 1 tab By Mouth 3 times a week on sunday, sunday, sunday For UTI 1 tab 09/02 Inactiv e 2023 23371 14225 1 3 times a week By Mouth False Sulfamethox azole 800 mg-trimetho prim 160 mg tablet [generic] 09/02 Inactiv e 2023 03896 26502 1 Sulfamethox azole 800 mg-trimetho prim 160 mg tablet [generic] 1 tab By Mouth 3 times a week on sunday, sunday, sunday For UTI 1 tab 2023 00/00 /0000 Active 2023 85536 53388 1 3 times a week By Mouth False Polyethylen e glycol 3350 17 gram/dose oral powder [generic] 17 grams By Mouth Once daily For contispation 17 grams 09/04 Inactiv e 2023 25851 45403 4 Once daily By Mouth False Posaconazol e 100 mg tablet,zaki yed release [generic] 300mg By Mouth Once daily For Antifungal 300mg 09/18 Active 2023 42218 47774 0 Once daily By Mouth False Senna 8.6 mg tablet 2 tabs By Mouth Twice daily For contispation 2 tabs 2023 Active 2023 71372 21492 1 Twice daily By Mouth False ProSource No Carb 15 gram-60 kcal/30 mL oral liquid 30 ml By Mouth Once daily For Wound - Note total ml consumed 30 ml 2023 Active 2023 73919 51841 5 Once daily By Mouth False Levofloxaci n 500 mg tablet [generic] 500 mg By Mouth Once daily For Prophylaxis 500 mg 2023 Active 2023 18155 89931 8 Once daily By Mouth False Mirtazapine 7.5 mg tablet [generic] 7.5 mg By Mouth Once daily For Depression 7.5 mg 2023 Active 2023 09989 14994 5 Once daily By Mouth False Prochlorper azine maleate 10 mg tablet [generic] 09/02 Inactiv e 2023 90730 46229 1 Prochlorper azine maleate 10 mg tablet [generic] 1 tab By Mouth Every 6 hours as needed For nausea 1 tab 09/16 Active 2023 76934 21850 1 Every 6 hours as needed By Mouth False Ondansetron HCl 8 mg tablet [generic] 09/02 Inactiv e 2023 21378 31324 0 Ondansetron HCl 8 mg tablet [generic] 8mg By Mouth Every 8 hours For Nausea 8mg 2023 Active 2023 09257 44538 0 Every 8 hours By Mouth False Lorazepam 0.5 mg tablet [generic] 09/02 Inactiv e 2023 19128 81112 1 Lorazepam 0.5 mg tablet [generic] 1 tab By Mouth At bedtime as needed For anxiety 1 tab 09/02 Inactiv e 2023 58170 49298 1 At bedtime as needed By Mouth False Loratadine 10 mg tablet [generic] 09/02 Inactiv e 2023 93609 97259 9 Loratadine 10 mg tablet [generic] 10 By Mouth Once daily As Needed For when receiving chemotherapy 10 202300 Active 2023 47237 45049 9 Once daily By Mouth False Tramadol 50 mg tablet [generic] 09/02 Inactiv e 2023 61948 32952 0 Tramadol 50 mg tablet [generic] 1 tab By Mouth Every 6 hours as needed For moderate/mynor re pain 1 tab 09/02 Inactiv e 2023 43918 18084 0 Every 6 hours as needed By Mouth False Phenazopyri dine 200 mg tablet [generic] 09/02 Inactiv e 2023 78772 46136 1 Phenazopyri dine 200 mg tablet [generic] 1 tab By Mouth Three times daily as needed For bladder pain 1 tab 202300 / Active 2023 56310 95422 1 Three times daily as needed By Mouth False Tylenol 325 mg tablet 09/02 Inactiv e 2023 91124 42087 0 Tylenol 325 mg tablet 2 tabs By Mouth Every 4 hours as needed For DO NOT EXCEED 3000 MG APAP/24 Hours For mild Pain 2 tabs 202300 /0000 Active 2023 39137 07998 0 Every 4 hours as needed By Mouth False Metformin 1,000 mg tablet [generic] 09/02 Inactiv e 2023 08892 87396 0 Metformin 1,000 mg tablet [generic] 1 tab By Mouth Twice daily with meals For DM2 1 tab 2023 Active 2023 60822 66187 0 Twice daily By Mouth False Pantoprazol e 40 mg tablet,zaki yed release [generic] 09/02 Inactiv e 2023 06995 61682 0 Pantoprazol e 40 mg tablet,zaki yed release [generic] 1 tab By Mouth Once daily For gerd 1 tab 2023 Active 2023 02406 46387 0 Once daily By Mouth False Tramadol 50 mg tablet [generic] 09/02 Inactiv e 2023 71274 13044 0 Tramadol 50 mg tablet [generic] 1 tab By Mouth Every 6 hours as needed For moderate/mynor re pain 1 tab 2023 Active 2023 83058 46297 0 Every 6 hours as needed By Mouth False Lorazepam 0.5 mg tablet [generic] 09/02 Inactiv e 2023 77968 79468 1 Lorazepam 0.5 mg tablet [generic] 1 tab By Mouth At bedtime as needed For anxiety 1 tab 2023 Active 2023 23662 61646 1 At bedtime as needed By Mouth False Polyethylen e glycol 3350 17 gram/dose oral powder [generic] 17 grams By Mouth Daily as needed PRN For order changed to PRN daily forcontispati on 17 grams 2023 Active 2023 15168 68940 4 Daily as needed By Mouth False Spironolact one 25 mg tablet [generic] 12.5 mg By Mouth Once daily For ESSENTIAL (PRIMARY) HYPERTENSION 12.5 mg 2023 Active 2023 25927 15088 1 Once daily By Mouth I10. False Furosemide 20 mg tablet [generic] 20 mg By Mouth Once daily For UNSPECIFIED SYSTOLIC (CONGESTIVE) HEART FAILURE 20 mg 2023 Active 2023 40487 07550 0 Once daily By Mouth I50.20 False Carvedilol 12.5 mg tablet [generic] 09/07 Inactiv e 2023 45683 62849 0 Carvedilol 12.5 mg tablet [generic] 12.5mg By Mouth Twice daily For CAD hold for systolic b/p less than 100 12.5mg 2023 Active 2023 70564 33795 0 Twice daily By Mouth False Losartan 25 mg tablet [generic] 09/07 Inactiv e 2023 98359 58655 9 Losartan 25 mg tablet [generic] 25mg By Mouth Once daily For HTN 25mg 2023 Active 2023 58422 64503 9 Once daily By Mouth False Unstageable [...] Active I25.10 Atherosclerotic hear t disease of [place] coronary artery without angina pectoris 08/29/2024 Active [...] Temperature SpO2 Blood Sugar Pulse Respirations 206 39453 1 64.00 mm[Hg] - Sitting 109.00 mm[Hg] - Sitting 98.70 Tympanic 90.00 % 64.00/ min 16.00/min 59152 206 65402 0 178.60 NI 61645 206 86765 6 63 NI 59884 206 97751 4 72.00 mm[Hg] - Sitting 121.00 mm[Hg] - Sitting 100.40 Forehead Scan 92.00 % 60.00/ min 18.00/min 10098 206 84373 8 72.00 mm[Hg] - Sitting 121.00 mm[Hg] - Sitting 100.40 Tympanic 00087 206 57635 9 60.00/ min 18.00/min 23183 206 76163 5 148.00 mg/dL 35477 207 35741 7 63.00 mm[Hg] - Sitting 122.00 mm[Hg] - Sitting 100.40 Tympanic 60.00/ min 18.00/min 85786 207 33366 7 55.00 mm[Hg] - Sitting 104.00 mm[Hg] - Sitting 98.40 Forehead Scan 96.00 % 66.00/ min 18.00/min 17388 207 03811 5 120.00 mg/dL 207 72594 6 101.00 mg/dL 207 25609 8 63.00 mm[Hg] - Sitting 122.00 mm[Hg] - Sitting 54145 207 06823 7 134.00 mg/dL 207 05896 9 134.00 mg/dL 10250 207 68798 0 127.00 mg/dL 46247 207 05575 7 127.00 mg/dL 207 06150 9 122.00 mg/dL 00022 208 39153 9 62.00 mm[Hg] - Sitting 106.00 mm[Hg] - Sitting 98.60 Tympanic 66.00/ min 18.00/min 51654 208 58004 3 117.00 mg/dL 95002 208 85084 2 155.00 mg/dL 85840 208 23678 6 98.60 Tympanic 74032 208 38068 1 123.00 mg/dL 01775 208 89043 2 123.00 mg/dL 88168 208 33633 4 62.00 mm[Hg] - Sitting 106.00 mm[Hg] - Sitting 56473 208 54253 7 123.00 mg/dL 65985 208 29699 1 123.00 mg/dL 89361 208 81047 7 136.00 mg/dL 63952 209 94866 0 60.00 mm[Hg] - Sitting 113.00 mm[Hg] - Sitting 98.50 Forehead Scan 98.00 % 61.00/ min 16.00/min 32244 209 68816 7 114.00 mg/dL 22865 209 35625 7 111.00 mg/dL 42772 209 41215 0 98.00 Tympanic 21435 209 83521 2 68.00 mm[Hg] - Sitting 118.00 mm[Hg] - Sitting 13358 209 25730 5 156.00 mg/dL 76858 209 95886 4 156.00 mg/dL 03449 209 65791 5 132.00 mg/dL 06582 209 01833 4 132.00 mg/dL 62101 209 57434 0 136.00 mg/dL 01566 210 45552 0 52.00 mm[Hg] - Sitting 119.00 mm[Hg] - Sitting 98.40 Forehead Scan 96.00 % 57.00/ min 18.00/min 32507 210 10295 9 107.00 mg/dL 24613 210 07922 7 108.00 mg/dL 85714 210 98734 8 97.00 Tympanic 86898 210 05075 2 126.00 mg/dL 64961 210 84765 0 126.00 mg/dL 22711 210 15827 9 126.00 mg/dL 30868 210 47040 2 154.00 mg/dL 66769 211 24645 0 53.00 mm[Hg] - Lying Down 104.00 mm[Hg] - Lying Down 98.90 Tympanic 93.00 % 60.00/ min 18.00/min 77377 211 52298 0 62.00 mm[Hg] - Sitting 72.00 mm[Hg] - Sitting 98.30 Tympanic 96.00 % 62.00/ min 18.00/min 86991 211 88463 9 136.00 mg/dL 90843 211 80812 8 131.00 mg/dL 21077 211 12374 3 118.00 mg/dL 51914 211 66887 9 130.00 mg/dL 58524 212 04897 7 46.00 mm[Hg] - Sitting 101.00 mm[Hg] - Sitting 98.50 Tympanic 96.00 % 62.00/ min 20.00/min 71845 212 22652 1 110.00 mg/dL 11309 212 53092 8 110.00 mg/dL 44495 212 25021 8 152.00 mg/dL 17589 212 54876 0 120.00 mg/dL 18967 213 38382 9 123.00 mg/dL 59946 213 13016 9 123.00 mg/dL 49204 213 01311 5 22275 213 55474 2 59797 213 81132 8 99310 213 29881 8 29511 213 67457 5 134.00 mg/dL 86170 214 27242 5 50.00 mm[Hg] - Sitting 108.00 mm[Hg] - Sitting 98.20 Tympanic 97.00 % 60.00/ min 20.00/min 99639 214 09226 0 53.00 mm[Hg] - Sitting 104.00 mm[Hg] - Sitting 97.80 Tympanic 97.00 % 61.00/ min 18.00/min 61248 214 43313 4 122.00 mg/dL 86908 214 51894 2 122.00 mg/dL 13537 214 20898 7 142.00 mg/dL 60814 214 89593 4 142.00 mg/dL 34776 214 98667 7 115.00 mg/dL 84052 214 07097 9 115.00 mg/dL 81229 214 29232 1 121.00 mg/dL 26399 215 82093 5 97.80 Forehead Scan 98.00 % 60.00/ min 18.00/min 64989 215 55464 6 46.00 mm[Hg] - Lying Down 85.00 mm[Hg] - Lying Down 63288 215 18738 5 130.00 mg/dL 02455 215 27333 8 130.00 mg/dL 62656 215 05601 5 130.00 mg/dL 215 10477 2 117.00 mg/dL 215 76877 3 138.00 mg/dL 216 60341 1 62.00 mm[Hg] - Lying Down 90.00 mm[Hg] - Lying Down 216 37592 3 94.00 mg/dL 216 44490 1 36.00 mm[Hg] - Sitting 80.00 mm[Hg] - Sitting Immunizations Vaccine Date Status Influenza 08/29/2024 Completed (PCV13)Pneumococcal 08/29/2024 Completed
--- OUTSIDE RECORDS SUMMARY | 2024-09-08 22:00 | External Medical Summary | Continuity Of Care Document ---
Author Name Unknown Address [address] [address] Organization [facility] [place] () Care Team Providers Care [employer] Marker Name Role Phone DO Perdomo Amy Primary Care Provider [phone] Allergies Allergy Reaction Start Date End Date [...] 3 0.1 mL 09/01 Inactiv e 2023 78648 21333 0 1 time Intrad ermal False Tubersol 5 tub. unit/0.1 mL intradermal injection solution [Tuberculin PPD] 0.1mL Intradermal 1 time For PPD 2nd Step Give 2nd Step PPD Day 1 and Read results Day 3 (schedule 7 days after 1st READ) 0.1mL 09/10 Active 2023 77124 74010 0 1 time Intrad ermal False Tylenol 325 mg tablet 2 tabs By Mouth Every 4 hours as needed For Pain DO NOT EXCEED 3000 MG APAP/24 Hours 2 tabs 09/02 Inactiv e 2023 71426 20162 0 Every 4 hours as needed By Mouth False Tylenol 325 mg tablet 2 tabs By Mouth Every 4 hours as needed For Fever >100 DO NOT EXCEED 3000 MG APAP/24 Hours 2 tabs 2023 0000 /0000 Active 2023 49878 84616 0 Every 4 hours as needed By Mouth False Dulcolax (bisacodyl) 10 mg rectal suppository One Suppository per rectum PRN if Milk of Magnisia ineffective. Give on day 5 of no BM 1 sup 2023 Active 2023 19249 23726 1 Daily as needed Rectal False Fleet Enema 19 gram-7 gram/118 mL Administer per rectum PRN one time if dulcolax suppository not effective. Give on day 6 of no BM 1 2023 Active 2023 60145 65231 6 Daily as needed Rectal False Dextrose 50 % in water (D50W) intravenous solution [generic] Dextrose 50% jose manuel 20-50 ml (slow push) Intravenous if Glucagon not effective after 15 minutes. CALL 911 for ED Evaluation. 50% jose manuel 2023 Active 2023 61229 63989 9 Intrav enous False Glucagon (HCl) Emergency Kit 1 mg solution for injection Administer Glucagon 1 mg Intramuscular if 15 minutes after GLucose Gel is administered Glucose remains less than 70 1 mg 2023 Active 2023 73350 33327 2 Intram uscula r False Glucose Gel 40 % oral gel [Dextrose] PRN If resident is unable to swallow (with or without symptoms) and Glucose results less than 70 give GLucose 40% Gel 1 tube orally - Recheck Glucose 15 minutes after administratio n. 1 tube 2023 Active 2023 28491 09326 8 By Mouth False Santyl 250 unit/gram topical ointment dose Topical Once daily to wound bed daily with wound care For Unstageable Pressure injury dose 2023 Active 2023 37405 23570 0 Once daily Topica l False Fluconazole 200 mg tablet [generic] 1 tab By Mouth Once daily For Yeast infection 1 tab 09/01 Inactiv e 2023 81383 64624 3 Once daily By Mouth False Phenazopyri dine 200 mg tablet [generic] 1 tab By Mouth Three times daily as needed For pain 1 tab 09/02 Inactiv e 2023 88392 05551 1 Three times daily as needed By Mouth False Aspirin 81 mg tablet,zaki yed release [generic] 1 tab By Mouth At bedtime For CAD 1 tab 2023 Active 2023 84510 23127 9 At bedtime By Mouth False BD AutoShield Duo Pen Needle 30 gauge x 3/16in 1 4 times a day subcutaneous 4 times a day change needle wqith every use of insulin For Type 2 diabetes Mellitus 1 2023 Active 2023 51256 84736 5 4 times a day Subcut aneous False Albuterol sulfate HFA 90 mcg/actuati on aerosol inhaler [generic] 2 puff Inhalation Every 6 hours as needed For SOB or wheezing 2 puff 2023 Active 2023 93275 67825 2 Every 6 hours as needed Inhala tion False Tramadol 50 mg tablet [generic] 1 tab By Mouth Every 6 hours as needed For pain 1 tab 09/02 Inactiv e 2023 49318 32724 0 Every 6 hours as needed By Mouth False Docusate sodium 100 mg tablet [generic] 1 tab Daily as needed For constipation 1 tab 2023 Active 2023 54707 53667 1 Daily as needed By Mouth False Senna Laxative 8.6 mg tablet 1 tab By Mouth Daily as needed For constipation 1 tab 2023 Active 2023 73554 91499 0 Daily as needed By Mouth False Potassium chloride ER 20 mEq tablet,exte nded release [generic] 1 tab By Mouth Twice daily For hypokalemia 1 tab 2023 Active 2023 58061 43780 1 Twice daily By Mouth False Acyclovir 400 mg tablet [generic] 1 tab By Mouth Twice daily For preventative B-cell lymphoma 1 tab 2023 Active 2023 07698 85301 1 Twice daily By Mouth False Pantoprazol e 40 mg tablet,zaki yed release [generic] 1 tab By Mouth Once daily For gerd 1 tab 09/02 Inactiv e 2023 66243 02056 0 Once daily By Mouth False Metformin 1,000 mg tablet [generic] 1 tab By Mouth Twice daily For DM2 1 tab 09/02 Inactiv e 2023 55945 56711 0 Twice daily By Mouth False Rosuvastati n 20 mg tablet [generic] 1 tab By Mouth At bedtime For hyperlipdemia 1 tab 2023 Active 2023 10770 88957 0 At bedtime By Mouth False Polyethylen e glycol 3350 (bulk) powder [generic] 17 g By Mouth Daily as needed For constipation 17 g 2023 Active 2023 41504 27866 1 Daily as needed By Mouth False Prochlorper azine maleate 10 mg tablet [generic] 1 tab By Mouth Every 6 hours as needed For nausea 1 tab 09/02 Inactiv e 2023 88967 64437 1 Every 6 hours as needed By Mouth False Bisacodyl 5 mg tablet,zaki yed release [generic] 1 tab By Mouth Daily as needed For constipation 1 tab 2023 Active 2023 27001 82587 1 Daily as needed By Mouth False Lorazepam 0.5 mg tablet [generic] 1 tab By Mouth At bedtime as needed For anxiety 1 tab 09/02 Inactiv e 2023 54300 94696 1 At bedtime as needed By Mouth False Insulin glargine (U-300) conc. 300 unit/mL (3 mL) subcutaneou s pen [generic] 40 units Subcutaneous At bedtime For DM2 40 units 09/02 Inactiv e 2023 09644 62226 2 At bedtime Subcut aneous False Jardiance 10 mg tablet 1 tab By Mouth Once daily For DM2 1 tab 2023 Active 2023 93221 90995 7 Once daily By Mouth False Insulin [...] time order For diabetes 2023 Active 2023 50412 59403 5 3 times a day Subcut aneous False Sulfamethox azole 800 mg-trimetho prim 160 mg tablet [generic] 1 tab By Mouth 3 times a week on sunday, sunday, sunday For UTI 1 tab 09/02 Inactiv e 2023 55167 55020 1 3 times a week By Mouth False Gemtesa 75 mg tablet 75mg By Mouth Once daily For urinary management 75mg 2023 Active 2023 60140 74235 7 Once daily By Mouth False Losartan 25 mg tablet [generic] 25mg By Mouth Once daily For HTN 25mg 09/07 Inactiv e 2023 65573 01739 9 Once daily By Mouth False Ozempic 1 mg/dose (4 mg/3 mL) subcutaneou s pen injector 1mg Subcutaneous Every week For diabetes 1mg 09/04 Inactiv e 2023 04253 55820 3 Every week Subcut aneous False Carvedilol 12.5 mg tablet [generic] 12.5mg By Mouth Twice daily For CAD 12.5mg 09/07 Inactiv e 2023 19231 94098 0 Twice daily By Mouth False Loratadine 10 mg tablet [generic] 10 By Mouth Once daily As Needed For CHEMO 10 09/02 Inactiv e 2023 45797 95980 9 Once daily By Mouth False Loperamide 2 mg tablet [generic] 2mg By Mouth Every 6 hours As Needed For diarrhea 2mg 2023 Active 2023 50674 68547 6 Every 6 hours By Mouth False Spironolact one 25 mg tablet [generic] 25mg By Mouth Once daily For HTN 25mg 09/04 Inactiv e 2023 71075 86006 1 Once daily By Mouth False Lasix 40 mg tablet 40 By Mouth Once daily For htn 40 09/04 Inactiv e 2023 65096 20039 1 Once daily By Mouth False Ondansetron HCl 8 mg tablet [generic] 8mg By Mouth Every 8 hours For Encephalopath y 8mg 09/02 Inactiv e 2023 87779 47608 0 Every 8 hours By Mouth False Levofloxaci n 750 mg tablet [generic] 750 mg By Mouth Once daily For UTI 750 mg 09/02 Inactiv e 2023 85910 30504 6 Once daily By Mouth False Miralax 17 gram/dose oral powder 17grams By Mouth Once daily For constipation 17grams 09/03 Inactiv e 2023 18339 09692 0 Once daily By Mouth False Sulfamethox azole 800 mg-trimetho prim 160 mg tablet [generic] 09/02 Inactiv e 2023 19448 00616 1 Sulfamethox azole 800 mg-trimetho prim 160 mg tablet [generic] 1 tab By Mouth 3 times a week on sunday, sunday, sunday For UTI 1 tab 09/02 Inactiv e 2023 21490 05183 1 3 times a week By Mouth False Sulfamethox azole 800 mg-trimetho prim 160 mg tablet [generic] 09/02 Inactiv e 2023 67531 89579 1 Sulfamethox azole 800 mg-trimetho prim 160 mg tablet [generic] 1 tab By Mouth 3 times a week on sunday, sunday, sunday For UTI 1 tab 2023 00/00 /0000 Active 2023 00542 25757 1 3 times a week By Mouth False Polyethylen e glycol 3350 17 gram/dose oral powder [generic] 17 grams By Mouth Once daily For contispation 17 grams 09/04 Inactiv e 2023 64695 79943 4 Once daily By Mouth False Posaconazol e 100 mg tablet,zaki yed release [generic] 300mg By Mouth Once daily For Antifungal 300mg 09/18 Active 2023 54595 69528 0 Once daily By Mouth False Senna 8.6 mg tablet 2 tabs By Mouth Twice daily For contispation 2 tabs 2023 Active 2023 75234 43046 1 Twice daily By Mouth False ProSource No Carb 15 gram-60 kcal/30 mL oral liquid 30 ml By Mouth Once daily For Wound - Note total ml consumed 30 ml 2023 Active 2023 15489 69775 5 Once daily By Mouth False Levofloxaci n 500 mg tablet [generic] 500 mg By Mouth Once daily For Prophylaxis 500 mg 2023 Active 2023 73089 09786 8 Once daily By Mouth False Mirtazapine 7.5 mg tablet [generic] 7.5 mg By Mouth Once daily For Depression 7.5 mg 2023 Active 2023 71853 90835 5 Once daily By Mouth False Prochlorper azine maleate 10 mg tablet [generic] 09/02 Inactiv e 2023 90323 95863 1 Prochlorper azine maleate 10 mg tablet [generic] 1 tab By Mouth Every 6 hours as needed For nausea 1 tab 09/16 Active 2023 02189 96746 1 Every 6 hours as needed By Mouth False Ondansetron HCl 8 mg tablet [generic] 09/02 Inactiv e 2023 31034 66186 0 Ondansetron HCl 8 mg tablet [generic] 8mg By Mouth Every 8 hours For Nausea 8mg 2023 Active 2023 21624 45635 0 Every 8 hours By Mouth False Lorazepam 0.5 mg tablet [generic] 09/02 Inactiv e 2023 87358 79537 1 Lorazepam 0.5 mg tablet [generic] 1 tab By Mouth At bedtime as needed For anxiety 1 tab 09/02 Inactiv e 2023 08731 21560 1 At bedtime as needed By Mouth False Loratadine 10 mg tablet [generic] 09/02 Inactiv e 2023 85273 26471 9 Loratadine 10 mg tablet [generic] 10 By Mouth Once daily As Needed For when receiving chemotherapy 10 202300 Active 2023 00849 96576 9 Once daily By Mouth False Tramadol 50 mg tablet [generic] 09/02 Inactiv e 2023 95055 59379 0 Tramadol 50 mg tablet [generic] 1 tab By Mouth Every 6 hours as needed For moderate/mynor re pain 1 tab 09/02 Inactiv e 2023 30826 32470 0 Every 6 hours as needed By Mouth False Phenazopyri dine 200 mg tablet [generic] 09/02 Inactiv e 2023 78846 28825 1 Phenazopyri dine 200 mg tablet [generic] 1 tab By Mouth Three times daily as needed For bladder pain 1 tab 202300 / Active 2023 88849 62469 1 Three times daily as needed By Mouth False Tylenol 325 mg tablet 09/02 Inactiv e 2023 89265 69506 0 Tylenol 325 mg tablet 2 tabs By Mouth Every 4 hours as needed For DO NOT EXCEED 3000 MG APAP/24 Hours For mild Pain 2 tabs 202300 /0000 Active 2023 65040 51185 0 Every 4 hours as needed By Mouth False Metformin 1,000 mg tablet [generic] 09/02 Inactiv e 2023 69598 40644 0 Metformin 1,000 mg tablet [generic] 1 tab By Mouth Twice daily with meals For DM2 1 tab 2023 Active 2023 95518 04946 0 Twice daily By Mouth False Pantoprazol e 40 mg tablet,zaki yed release [generic] 09/02 Inactiv e 2023 14535 46016 0 Pantoprazol e 40 mg tablet,zaki yed release [generic] 1 tab By Mouth Once daily For gerd 1 tab 2023 Active 2023 66189 03725 0 Once daily By Mouth False Tramadol 50 mg tablet [generic] 09/02 Inactiv e 2023 91303 72182 0 Tramadol 50 mg tablet [generic] 1 tab By Mouth Every 6 hours as needed For moderate/mynor re pain 1 tab 2023 Active 2023 94681 15957 0 Every 6 hours as needed By Mouth False Lorazepam 0.5 mg tablet [generic] 09/02 Inactiv e 2023 38827 74149 1 Lorazepam 0.5 mg tablet [generic] 1 tab By Mouth At bedtime as needed For anxiety 1 tab 2023 Active 2023 75865 82199 1 At bedtime as needed By Mouth False Polyethylen e glycol 3350 17 gram/dose oral powder [generic] 17 grams By Mouth Daily as needed PRN For order changed to PRN daily forcontispati on 17 grams 2023 Active 2023 91858 86982 4 Daily as needed By Mouth False Spironolact one 25 mg tablet [generic] 12.5 mg By Mouth Once daily For ESSENTIAL (PRIMARY) HYPERTENSION 12.5 mg 2023 Active 2023 08635 46568 1 Once daily By Mouth I10. False Furosemide 20 mg tablet [generic] 20 mg By Mouth Once daily For UNSPECIFIED SYSTOLIC (CONGESTIVE) HEART FAILURE 20 mg 2023 Active 2023 64287 66338 0 Once daily By Mouth I50.20 False Carvedilol 12.5 mg tablet [generic] 09/07 Inactiv e 2023 13078 48608 0 Carvedilol 12.5 mg tablet [generic] 12.5mg By Mouth Twice daily For CAD hold for systolic b/p less than 100 12.5mg 2023 Active 2023 74892 63648 0 Twice daily By Mouth False Losartan 25 mg tablet [generic] 09/07 Inactiv e 2023 72977 46335 9 Losartan 25 mg tablet [generic] 25mg By Mouth Once daily For HTN 25mg 2023 Active 2023 47209 02096 9 Once daily By Mouth False Unstageable [...] Active I25.10 Atherosclerotic hear t disease of [place] coronary artery without angina pectoris 08/29/2024 Active [...] Temperature SpO2 Blood Sugar Pulse Respirations 206 17930 1 64.00 mm[Hg] - Sitting 109.00 mm[Hg] - Sitting 98.70 Tympanic 90.00 % 64.00/ min 16.00/min 07085 206 99062 0 178.60 NI 94879 206 70966 6 63 NI 46801 206 96020 4 72.00 mm[Hg] - Sitting 121.00 mm[Hg] - Sitting 100.40 Forehead Scan 92.00 % 60.00/ min 18.00/min 90653 206 68654 8 72.00 mm[Hg] - Sitting 121.00 mm[Hg] - Sitting 100.40 Tympanic 88213 206 26111 9 60.00/ min 18.00/min 77362 206 60329 5 148.00 mg/dL 02347 207 08866 7 63.00 mm[Hg] - Sitting 122.00 mm[Hg] - Sitting 100.40 Tympanic 60.00/ min 18.00/min 26957 207 34504 7 55.00 mm[Hg] - Sitting 104.00 mm[Hg] - Sitting 98.40 Forehead Scan 96.00 % 66.00/ min 18.00/min 30373 207 42209 5 120.00 mg/dL 207 01015 6 101.00 mg/dL 207 05623 8 63.00 mm[Hg] - Sitting 122.00 mm[Hg] - Sitting 68485 207 54344 7 134.00 mg/dL 207 65425 9 134.00 mg/dL 88729 207 01850 0 127.00 mg/dL 07073 207 09474 7 127.00 mg/dL 207 11062 9 122.00 mg/dL 93381 208 15156 9 62.00 mm[Hg] - Sitting 106.00 mm[Hg] - Sitting 98.60 Tympanic 66.00/ min 18.00/min 34733 208 77141 3 117.00 mg/dL 01997 208 11384 2 155.00 mg/dL 42596 208 80337 6 98.60 Tympanic 34993 208 55457 1 123.00 mg/dL 89244 208 33941 2 123.00 mg/dL 74615 208 43214 4 62.00 mm[Hg] - Sitting 106.00 mm[Hg] - Sitting 67686 208 67885 7 123.00 mg/dL 23886 208 54622 1 123.00 mg/dL 09731 208 28693 7 136.00 mg/dL 63719 209 57873 0 60.00 mm[Hg] - Sitting 113.00 mm[Hg] - Sitting 98.50 Forehead Scan 98.00 % 61.00/ min 16.00/min 30055 209 46640 7 114.00 mg/dL 22018 209 32712 7 111.00 mg/dL 87268 209 39505 0 98.00 Tympanic 90479 209 57319 2 68.00 mm[Hg] - Sitting 118.00 mm[Hg] - Sitting 65010 209 14134 5 156.00 mg/dL 24998 209 17235 4 156.00 mg/dL 47238 209 18522 5 132.00 mg/dL 96472 209 95345 4 132.00 mg/dL 12118 209 86051 0 136.00 mg/dL 33233 210 51393 0 52.00 mm[Hg] - Sitting 119.00 mm[Hg] - Sitting 98.40 Forehead Scan 96.00 % 57.00/ min 18.00/min 18490 210 03147 9 107.00 mg/dL 08187 210 05904 7 108.00 mg/dL 33354 210 03390 8 97.00 Tympanic 61795 210 58803 2 126.00 mg/dL 58912 210 30691 0 126.00 mg/dL 41350 210 20195 9 126.00 mg/dL 52899 210 80995 2 154.00 mg/dL 83288 211 45797 0 53.00 mm[Hg] - Lying Down 104.00 mm[Hg] - Lying Down 98.90 Tympanic 93.00 % 60.00/ min 18.00/min 48446 211 64475 0 62.00 mm[Hg] - Sitting 72.00 mm[Hg] - Sitting 98.30 Tympanic 96.00 % 62.00/ min 18.00/min 54889 211 08636 9 136.00 mg/dL 29670 211 29356 8 131.00 mg/dL 13366 211 60675 3 118.00 mg/dL 13585 211 55202 9 130.00 mg/dL 41564 212 14932 7 46.00 mm[Hg] - Sitting 101.00 mm[Hg] - Sitting 98.50 Tympanic 96.00 % 62.00/ min 20.00/min 77596 212 40049 1 110.00 mg/dL 36211 212 54082 8 110.00 mg/dL 86605 212 35112 8 152.00 mg/dL 64252 212 73991 0 120.00 mg/dL 96690 213 78274 9 123.00 mg/dL 67679 213 78839 9 123.00 mg/dL 05988 213 95785 5 58534 213 27474 2 16378 213 00217 8 81300 213 85726 8 02366 213 81958 5 134.00 mg/dL 87368 214 58373 5 50.00 mm[Hg] - Sitting 108.00 mm[Hg] - Sitting 98.20 Tympanic 97.00 % 60.00/ min 20.00/min 72078 214 31010 0 53.00 mm[Hg] - Sitting 104.00 mm[Hg] - Sitting 97.80 Tympanic 97.00 % 61.00/ min 18.00/min 62334 214 44809 4 122.00 mg/dL 32214 214 95475 2 122.00 mg/dL 87895 214 90876 7 142.00 mg/dL 64056 214 94202 4 142.00 mg/dL 26493 214 74297 7 115.00 mg/dL 93790 214 69642 9 115.00 mg/dL 07558 214 67426 1 121.00 mg/dL 16799 215 84241 5 97.80 Forehead Scan 98.00 % 60.00/ min 18.00/min 14922 215 85019 6 46.00 mm[Hg] - Lying Down 85.00 mm[Hg] - Lying Down 59212 215 97406 5 130.00 mg/dL 89747 215 73367 8 130.00 mg/dL 17489 215 97330 5 130.00 mg/dL 215 64019 2 117.00 mg/dL 215 70585 3 138.00 mg/dL 216 51362 3 94.00 mg/dL Immunizations Vaccine Date Status Influenza 08/29/2024 Completed (PCV13)Pneumococcal 08/29/2024 Completed
--- OUTSIDE RECORDS SUMMARY | 2024-09-08 22:00 | External Medical Summary | Continuity Of Care Document ---
Author Name Unknown Address [address] [address] Organization [facility], [address] [place] () Care Team Providers Care [employer] Name Role Phone DO Perdomo Amy Primary Care Provider [phone] Allergies Allergy Reaction Start Date End Date [...] 3 0.1 mL 09/01 Inactiv e 2023 71084 79243 0 1 time Intrad ermal False Tubersol 5 tub. unit/0.1 mL intradermal injection solution [Tuberculin PPD] 0.1mL Intradermal 1 time For PPD 2nd Step Give 2nd Step PPD Day 1 and Read results Day 3 (schedule 7 days after 1st READ) 0.1mL 09/10 Active 2023 35939 86849 0 1 time Intrad ermal False Tylenol 325 mg tablet 2 tabs By Mouth Every 4 hours as needed For Pain DO NOT EXCEED 3000 MG APAP/24 Hours 2 tabs 09/02 Inactiv e 2023 71652 46732 0 Every 4 hours as needed By Mouth False Tylenol 325 mg tablet 2 tabs By Mouth Every 4 hours as needed For Fever >100 DO NOT EXCEED 3000 MG APAP/24 Hours 2 tabs 2023 0000 /0000 Active 2023 65547 32476 0 Every 4 hours as needed By Mouth False Dulcolax (bisacodyl) 10 mg rectal suppository One Suppository per rectum PRN if Milk of Magnisia ineffective. Give on day 5 of no BM 1 sup 2023 Active 2023 87308 85034 1 Daily as needed Rectal False Fleet Enema 19 gram-7 gram/118 mL Administer per rectum PRN one time if dulcolax suppository not effective. Give on day 6 of no BM 1 2023 Active 2023 46010 65125 6 Daily as needed Rectal False Dextrose 50 % in water (D50W) intravenous solution [generic] Dextrose 50% jose manuel 20-50 ml (slow push) Intravenous if Glucagon not effective after 15 minutes. CALL 911 for ED Evaluation. 50% jose manuel 2023 Active 2023 45270 13311 9 Intrav enous False Glucagon (HCl) Emergency Kit 1 mg solution for injection Administer Glucagon 1 mg Intramuscular if 15 minutes after GLucose Gel is administered Glucose remains less than 70 1 mg 2023 Active 2023 75182 93109 2 Intram uscula r False Glucose Gel 40 % oral gel [Dextrose] PRN If resident is unable to swallow (with or without symptoms) and Glucose results less than 70 give GLucose 40% Gel 1 tube orally - Recheck Glucose 15 minutes after administratio n. 1 tube 2023 Active 2023 93589 24387 8 By Mouth False Santyl 250 unit/gram topical ointment dose Topical Once daily to wound bed daily with wound care For Unstageable Pressure injury dose 2023 Active 2023 68100 37516 0 Once daily Topica l False Fluconazole 200 mg tablet [generic] 1 tab By Mouth Once daily For Yeast infection 1 tab 09/01 Inactiv e 2023 85413 15703 3 Once daily By Mouth False Phenazopyri dine 200 mg tablet [generic] 1 tab By Mouth Three times daily as needed For pain 1 tab 09/02 Inactiv e 2023 48656 29484 1 Three times daily as needed By Mouth False Aspirin 81 mg tablet,zaki yed release [generic] 1 tab By Mouth At bedtime For CAD 1 tab 2023 Active 2023 03526 78617 9 At bedtime By Mouth False BD AutoShield Duo Pen Needle 30 gauge x 3/16in 1 4 times a day subcutaneous 4 times a day change needle wqith every use of insulin For Type 2 diabetes Mellitus 1 2023 Active 2023 68781 92326 5 4 times a day Subcut aneous False Albuterol sulfate HFA 90 mcg/actuati on aerosol inhaler [generic] 2 puff Inhalation Every 6 hours as needed For SOB or wheezing 2 puff 2023 Active 2023 17530 04191 2 Every 6 hours as needed Inhala tion False Tramadol 50 mg tablet [generic] 1 tab By Mouth Every 6 hours as needed For pain 1 tab 09/02 Inactiv e 2023 42263 17496 0 Every 6 hours as needed By Mouth False Docusate sodium 100 mg tablet [generic] 1 tab Daily as needed For constipation 1 tab 2023 Active 2023 18472 81723 1 Daily as needed By Mouth False Senna Laxative 8.6 mg tablet 1 tab By Mouth Daily as needed For constipation 1 tab 2023 Active 2023 24811 98107 0 Daily as needed By Mouth False Potassium chloride ER 20 mEq tablet,exte nded release [generic] 1 tab By Mouth Twice daily For hypokalemia 1 tab 2023 Active 2023 31866 92466 1 Twice daily By Mouth False Acyclovir 400 mg tablet [generic] 1 tab By Mouth Twice daily For preventative B-cell lymphoma 1 tab 2023 Active 2023 27737 36777 1 Twice daily By Mouth False Pantoprazol e 40 mg tablet,zaki yed release [generic] 1 tab By Mouth Once daily For gerd 1 tab 09/02 Inactiv e 2023 32386 02492 0 Once daily By Mouth False Metformin 1,000 mg tablet [generic] 1 tab By Mouth Twice daily For DM2 1 tab 09/02 Inactiv e 2023 98822 84527 0 Twice daily By Mouth False Rosuvastati n 20 mg tablet [generic] 1 tab By Mouth At bedtime For hyperlipdemia 1 tab 2023 Active 2023 74645 87569 0 At bedtime By Mouth False Polyethylen e glycol 3350 (bulk) powder [generic] 17 g By Mouth Daily as needed For constipation 17 g 2023 Active 2023 96586 39712 1 Daily as needed By Mouth False Prochlorper azine maleate 10 mg tablet [generic] 1 tab By Mouth Every 6 hours as needed For nausea 1 tab 09/02 Inactiv e 2023 94091 66748 1 Every 6 hours as needed By Mouth False Bisacodyl 5 mg tablet,zaki yed release [generic] 1 tab By Mouth Daily as needed For constipation 1 tab 2023 Active 2023 73474 39721 1 Daily as needed By Mouth False Lorazepam 0.5 mg tablet [generic] 1 tab By Mouth At bedtime as needed For anxiety 1 tab 09/02 Inactiv e 2023 00518 36268 1 At bedtime as needed By Mouth False Insulin glargine (U-300) conc. 300 unit/mL (3 mL) subcutaneou s pen [generic] 40 units Subcutaneous At bedtime For DM2 40 units 09/02 Inactiv e 2023 54065 04277 2 At bedtime Subcut aneous False Jardiance 10 mg tablet 1 tab By Mouth Once daily For DM2 1 tab 2023 Active 2023 60793 68156 7 Once daily By Mouth False Insulin [...] time order For diabetes 2023 Active 2023 52228 67205 5 3 times a day Subcut aneous False Sulfamethox azole 800 mg-trimetho prim 160 mg tablet [generic] 1 tab By Mouth 3 times a week on sunday, sunday, sunday For UTI 1 tab 09/02 Inactiv e 2023 68624 94213 1 3 times a week By Mouth False Gemtesa 75 mg tablet 75mg By Mouth Once daily For urinary management 75mg 2023 Active 2023 29555 18214 7 Once daily By Mouth False Losartan 25 mg tablet [generic] 25mg By Mouth Once daily For HTN 25mg 09/07 Inactiv e 2023 83148 79867 9 Once daily By Mouth False Ozempic 1 mg/dose (4 mg/3 mL) subcutaneou s pen injector 1mg Subcutaneous Every week For diabetes 1mg 09/04 Inactiv e 2023 19995 22872 3 Every week Subcut aneous False Carvedilol 12.5 mg tablet [generic] 12.5mg By Mouth Twice daily For CAD 12.5mg 09/07 Inactiv e 2023 32353 91397 0 Twice daily By Mouth False Loratadine 10 mg tablet [generic] 10 By Mouth Once daily As Needed For CHEMO 10 09/02 Inactiv e 2023 88541 95842 9 Once daily By Mouth False Loperamide 2 mg tablet [generic] 2mg By Mouth Every 6 hours As Needed For diarrhea 2mg 2023 Active 2023 63432 48295 6 Every 6 hours By Mouth False Spironolact one 25 mg tablet [generic] 25mg By Mouth Once daily For HTN 25mg 09/04 Inactiv e 2023 56647 88397 1 Once daily By Mouth False Lasix 40 mg tablet 40 By Mouth Once daily For htn 40 09/04 Inactiv e 2023 60369 94881 1 Once daily By Mouth False Ondansetron HCl 8 mg tablet [generic] 8mg By Mouth Every 8 hours For Encephalopath y 8mg 09/02 Inactiv e 2023 33175 70471 0 Every 8 hours By Mouth False Levofloxaci n 750 mg tablet [generic] 750 mg By Mouth Once daily For UTI 750 mg 09/02 Inactiv e 2023 11529 95018 6 Once daily By Mouth False Miralax 17 gram/dose oral powder 17grams By Mouth Once daily For constipation 17grams 09/03 Inactiv e 2023 17405 78390 0 Once daily By Mouth False Sulfamethox azole 800 mg-trimetho prim 160 mg tablet [generic] 09/02 Inactiv e 2023 27736 14805 1 Sulfamethox azole 800 mg-trimetho prim 160 mg tablet [generic] 1 tab By Mouth 3 times a week on sunday, sunday, sunday For UTI 1 tab 09/02 Inactiv e 2023 35403 69492 1 3 times a week By Mouth False Sulfamethox azole 800 mg-trimetho prim 160 mg tablet [generic] 09/02 Inactiv e 2023 12279 26602 1 Sulfamethox azole 800 mg-trimetho prim 160 mg tablet [generic] 1 tab By Mouth 3 times a week on sunday, sunday, sunday For UTI 1 tab 2023 00/00 /0000 Active 2023 04189 51558 1 3 times a week By Mouth False Polyethylen e glycol 3350 17 gram/dose oral powder [generic] 17 grams By Mouth Once daily For contispation 17 grams 09/04 Inactiv e 2023 44415 23276 4 Once daily By Mouth False Posaconazol e 100 mg tablet,zaki yed release [generic] 300mg By Mouth Once daily For Antifungal 300mg 09/18 Active 2023 46595 02161 0 Once daily By Mouth False Senna 8.6 mg tablet 2 tabs By Mouth Twice daily For contispation 2 tabs 2023 Active 2023 99563 79793 1 Twice daily By Mouth False ProSource No Carb 15 gram-60 kcal/30 mL oral liquid 30 ml By Mouth Once daily For Wound - Note total ml consumed 30 ml 2023 Active 2023 47385 74675 5 Once daily By Mouth False Levofloxaci n 500 mg tablet [generic] 500 mg By Mouth Once daily For Prophylaxis 500 mg 2023 Active 2023 64860 15601 8 Once daily By Mouth False Mirtazapine 7.5 mg tablet [generic] 7.5 mg By Mouth Once daily For Depression 7.5 mg 2023 Active 2023 51489 26733 5 Once daily By Mouth False Prochlorper azine maleate 10 mg tablet [generic] 09/02 Inactiv e 2023 56002 39253 1 Prochlorper azine maleate 10 mg tablet [generic] 1 tab By Mouth Every 6 hours as needed For nausea 1 tab 09/16 Active 2023 08004 94319 1 Every 6 hours as needed By Mouth False Ondansetron HCl 8 mg tablet [generic] 09/02 Inactiv e 2023 91318 88892 0 Ondansetron HCl 8 mg tablet [generic] 8mg By Mouth Every 8 hours For Nausea 8mg 2023 Active 2023 44447 41217 0 Every 8 hours By Mouth False Lorazepam 0.5 mg tablet [generic] 09/02 Inactiv e 2023 62840 97924 1 Lorazepam 0.5 mg tablet [generic] 1 tab By Mouth At bedtime as needed For anxiety 1 tab 09/02 Inactiv e 2023 86323 30612 1 At bedtime as needed By Mouth False Loratadine 10 mg tablet [generic] 09/02 Inactiv e 2023 99217 08521 9 Loratadine 10 mg tablet [generic] 10 By Mouth Once daily As Needed For when receiving chemotherapy 10 202300 Active 2023 99275 83933 9 Once daily By Mouth False Tramadol 50 mg tablet [generic] 09/02 Inactiv e 2023 83167 95767 0 Tramadol 50 mg tablet [generic] 1 tab By Mouth Every 6 hours as needed For moderate/mynor re pain 1 tab 09/02 Inactiv e 2023 52197 59610 0 Every 6 hours as needed By Mouth False Phenazopyri dine 200 mg tablet [generic] 09/02 Inactiv e 2023 81068 59838 1 Phenazopyri dine 200 mg tablet [generic] 1 tab By Mouth Three times daily as needed For bladder pain 1 tab 202300 / Active 2023 40662 07824 1 Three times daily as needed By Mouth False Tylenol 325 mg tablet 09/02 Inactiv e 2023 48399 86619 0 Tylenol 325 mg tablet 2 tabs By Mouth Every 4 hours as needed For DO NOT EXCEED 3000 MG APAP/24 Hours For mild Pain 2 tabs 202300 /0000 Active 2023 88565 32629 0 Every 4 hours as needed By Mouth False Metformin 1,000 mg tablet [generic] 09/02 Inactiv e 2023 59809 47132 0 Metformin 1,000 mg tablet [generic] 1 tab By Mouth Twice daily with meals For DM2 1 tab 2023 Active 2023 34170 52071 0 Twice daily By Mouth False Pantoprazol e 40 mg tablet,zaki yed release [generic] 09/02 Inactiv e 2023 63894 49371 0 Pantoprazol e 40 mg tablet,zaki yed release [generic] 1 tab By Mouth Once daily For gerd 1 tab 2023 Active 2023 35194 27651 0 Once daily By Mouth False Tramadol 50 mg tablet [generic] 09/02 Inactiv e 2023 31527 66672 0 Tramadol 50 mg tablet [generic] 1 tab By Mouth Every 6 hours as needed For moderate/mynor re pain 1 tab 2023 Active 2023 72098 10159 0 Every 6 hours as needed By Mouth False Lorazepam 0.5 mg tablet [generic] 09/02 Inactiv e 2023 95816 20621 1 Lorazepam 0.5 mg tablet [generic] 1 tab By Mouth At bedtime as needed For anxiety 1 tab 2023 Active 2023 97918 05787 1 At bedtime as needed By Mouth False Polyethylen e glycol 3350 17 gram/dose oral powder [generic] 17 grams By Mouth Daily as needed PRN For order changed to PRN daily forcontispati on 17 grams 2023 Active 2023 61903 15476 4 Daily as needed By Mouth False Spironolact one 25 mg tablet [generic] 12.5 mg By Mouth Once daily For ESSENTIAL (PRIMARY) HYPERTENSION 12.5 mg 2023 Active 2023 34832 56250 1 Once daily By Mouth I10. False Furosemide 20 mg tablet [generic] 20 mg By Mouth Once daily For UNSPECIFIED SYSTOLIC (CONGESTIVE) HEART FAILURE 20 mg 2023 Active 2023 85731 32467 0 Once daily By Mouth I50.20 False Carvedilol 12.5 mg tablet [generic] 09/07 Inactiv e 2023 29124 47386 0 Carvedilol 12.5 mg tablet [generic] 12.5mg By Mouth Twice daily For CAD hold for systolic b/p less than 100 12.5mg 2023 Active 2023 30269 17815 0 Twice daily By Mouth False Losartan 25 mg tablet [generic] 09/07 Inactiv e 2023 08289 44301 9 Losartan 25 mg tablet [generic] 25mg By Mouth Once daily For HTN 25mg 2023 Active 2023 38186 47683 9 Once daily By Mouth False Unstageable [...] Active I25.10 Atherosclerotic hear t disease of [place] coronary artery without angina pectoris 08/29/2024 Active [...] Temperature SpO2 Blood Sugar Pulse Respirations 206 67470 1 64.00 mm[Hg] - Sitting 109.00 mm[Hg] - Sitting 98.70 Tympanic 90.00 % 64.00/ min 16.00/min 56923 206 29868 0 178.60 NI 14822 206 27866 6 63 NI 65610 206 10478 4 72.00 mm[Hg] - Sitting 121.00 mm[Hg] - Sitting 100.40 Forehead Scan 92.00 % 60.00/ min 18.00/min 48114 206 58951 8 72.00 mm[Hg] - Sitting 121.00 mm[Hg] - Sitting 100.40 Tympanic 98187 206 01086 9 60.00/ min 18.00/min 20500 206 95972 5 148.00 mg/dL 81735 207 43633 7 63.00 mm[Hg] - Sitting 122.00 mm[Hg] - Sitting 100.40 Tympanic 60.00/ min 18.00/min 37946 207 11899 7 55.00 mm[Hg] - Sitting 104.00 mm[Hg] - Sitting 98.40 Forehead Scan 96.00 % 66.00/ min 18.00/min 81289 207 70317 5 120.00 mg/dL 207 55457 6 101.00 mg/dL 207 20473 8 63.00 mm[Hg] - Sitting 122.00 mm[Hg] - Sitting 84968 207 37955 7 134.00 mg/dL 207 17532 9 134.00 mg/dL 09850 207 48784 0 127.00 mg/dL 13158 207 80045 7 127.00 mg/dL 207 45162 9 122.00 mg/dL 44409 208 47940 9 62.00 mm[Hg] - Sitting 106.00 mm[Hg] - Sitting 98.60 Tympanic 66.00/ min 18.00/min 70449 208 51092 3 117.00 mg/dL 69656 208 36438 2 155.00 mg/dL 68758 208 38442 6 98.60 Tympanic 51102 208 85668 1 123.00 mg/dL 18219 208 20777 2 123.00 mg/dL 66593 208 51641 4 62.00 mm[Hg] - Sitting 106.00 mm[Hg] - Sitting 90427 208 95398 7 123.00 mg/dL 67925 208 88643 1 123.00 mg/dL 52722 208 49087 7 136.00 mg/dL 48582 209 98069 0 60.00 mm[Hg] - Sitting 113.00 mm[Hg] - Sitting 98.50 Forehead Scan 98.00 % 61.00/ min 16.00/min 76734 209 71003 7 114.00 mg/dL 67419 209 23149 7 111.00 mg/dL 79404 209 05853 0 98.00 Tympanic 28357 209 48467 2 68.00 mm[Hg] - Sitting 118.00 mm[Hg] - Sitting 46472 209 27648 5 156.00 mg/dL 10633 209 30274 4 156.00 mg/dL 48379 209 45974 5 132.00 mg/dL 57737 209 17793 4 132.00 mg/dL 19784 209 27124 0 136.00 mg/dL 59466 210 33134 0 52.00 mm[Hg] - Sitting 119.00 mm[Hg] - Sitting 98.40 Forehead Scan 96.00 % 57.00/ min 18.00/min 16567 210 27832 9 107.00 mg/dL 90208 210 76753 7 108.00 mg/dL 78230 210 91243 8 97.00 Tympanic 79371 210 56282 2 126.00 mg/dL 90759 210 72839 0 126.00 mg/dL 75098 210 00380 9 126.00 mg/dL 39981 210 03831 2 154.00 mg/dL 66665 211 14951 0 53.00 mm[Hg] - Lying Down 104.00 mm[Hg] - Lying Down 98.90 Tympanic 93.00 % 60.00/ min 18.00/min 77734 211 59069 0 62.00 mm[Hg] - Sitting 72.00 mm[Hg] - Sitting 98.30 Tympanic 96.00 % 62.00/ min 18.00/min 80275 211 93618 9 136.00 mg/dL 55619 211 28041 8 131.00 mg/dL 36431 211 77613 3 118.00 mg/dL 60407 211 38260 9 130.00 mg/dL 53242 212 13743 7 46.00 mm[Hg] - Sitting 101.00 mm[Hg] - Sitting 98.50 Tympanic 96.00 % 62.00/ min 20.00/min 79553 212 89119 1 110.00 mg/dL 34333 212 97133 8 110.00 mg/dL 17167 212 72906 8 152.00 mg/dL 78549 212 86751 0 120.00 mg/dL 61929 213 32658 9 123.00 mg/dL 40945 213 19169 9 123.00 mg/dL 81415 213 22015 5 03647 213 97206 2 69653 213 16428 8 74260 213 14117 8 15177 213 92578 5 134.00 mg/dL 05662 214 36842 5 50.00 mm[Hg] - Sitting 108.00 mm[Hg] - Sitting 98.20 Tympanic 97.00 % 60.00/ min 20.00/min 25642 214 68172 0 53.00 mm[Hg] - Sitting 104.00 mm[Hg] - Sitting 97.80 Tympanic 97.00 % 61.00/ min 18.00/min 58764 214 77961 4 122.00 mg/dL 45311 214 68100 2 122.00 mg/dL 12494 214 60090 7 142.00 mg/dL 66399 214 24927 4 142.00 mg/dL 62703 214 10615 7 115.00 mg/dL 00429 214 82884 9 115.00 mg/dL 98390 214 68691 1 121.00 mg/dL 05764 215 46944 5 97.80 Forehead Scan 98.00 % 60.00/ min 18.00/min 40878 215 73531 6 46.00 mm[Hg] - Lying Down 85.00 mm[Hg] - Lying Down 06803 215 74753 5 130.00 mg/dL 64127 215 89673 8 130.00 mg/dL 82245 215 73208 5 130.00 mg/dL 215 42188 2 117.00 mg/dL 215 71875 3 138.00 mg/dL 216 09796 1 62.00 mm[Hg] - Lying Down 90.00 mm[Hg] - Lying Down 216 03073 3 94.00 mg/dL Immunizations Vaccine Date Status Influenza 08/29/2024 Completed (PCV13)Pneumococcal 08/29/2024 Completed
--- OUTSIDE RECORDS SUMMARY | 2024-09-08 22:00 | External Medical Summary | Continuity Of Care Document ---
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 unit/0.1 mL intradermal injection solution [Tuberculin PPD] 0.1mL Intradermal 1 time For PPD 2nd Step Give 2nd Step PPD Day 1 and Read results Day 3 (schedule 7 days after 1st READ) 0.1mL 09/10 Active 2023 32621 70375 0 1 time Intrad ermal False Tylenol 325 mg tablet 2 tabs By Mouth Every 4 hours as needed For Pain DO NOT EXCEED 3000 MG APAP/24 Hours 2 tabs 09/02 Inactiv e 2023 60438 53231 0 Every 4 hours as needed By Mouth False Tylenol 325 mg tablet 2 tabs By Mouth Every 4 hours as needed For Fever >100 DO NOT EXCEED 3000 MG APAP/24 Hours 2 tabs 2023 0000 /0000 Active 2023 83239 76838 0 Every 4 hours as needed By Mouth False Dulcolax (bisacodyl) 10 mg rectal suppository One Suppository per rectum PRN if Milk of Magnisia ineffective. Give on day 5 of no BM 1 sup 2023 Active 2023 22186 04604 1 Daily as needed Rectal False Fleet Enema 19 gram-7 gram/118 mL Administer per rectum PRN one time if dulcolax suppository not effective. Give on day 6 of no BM 1 2023 Active 2023 13224 19737 6 Daily as needed Rectal False Dextrose 50 % in water (D50W) intravenous solution [generic] Dextrose 50% jose manuel 20-50 ml (slow push) Intravenous if Glucagon not effective after 15 minutes. CALL 911 for ED Evaluation. 50% jose manuel 2023 Active 2023 74733 87492 9 Intrav enous False Glucagon (HCl) Emergency Kit 1 mg solution for injection Administer Glucagon 1 mg Intramuscular if 15 minutes after GLucose Gel is administered Glucose remains less than 70 1 mg 2023 Active 2023 42908 38762 2 Intram uscula r False Glucose Gel 40 % oral gel [Dextrose] PRN If resident is unable to swallow (with or without symptoms) and Glucose results less than 70 give GLucose 40% Gel 1 tube orally - Recheck Glucose 15 minutes after administratio n. 1 tube 2023 Active 2023 49931 38637 8 By Mouth False Santyl 250 unit/gram topical ointment dose Topical Once daily to wound bed daily with wound care For Unstageable Pressure injury dose 2023 Active 2023 08250 40456 0 Once daily Topica l False Fluconazole 200 mg tablet [generic] 1 tab By Mouth Once daily For Yeast infection 1 tab 09/01 Inactiv e 2023 39750 49329 3 Once daily By Mouth False Phenazopyri dine 200 mg tablet [generic] 1 tab By Mouth Three times daily as needed For pain 1 tab 09/02 Inactiv e 2023 84320 01204 1 Three times daily as needed By Mouth False Aspirin 81 mg tablet,zaki yed release [generic] 1 tab By Mouth At bedtime For CAD 1 tab 2023 Active 2023 89186 75044 9 At bedtime By Mouth False BD AutoShield Duo Pen Needle 30 gauge x 3/16in 1 4 times a day subcutaneous 4 times a day change needle wqith every use of insulin For Type 2 diabetes Mellitus 1 2023 Active 2023 07411 13414 5 4 times a day Subcut aneous False Albuterol sulfate HFA 90 mcg/actuati on aerosol inhaler [generic] 2 puff Inhalation Every 6 hours as needed For SOB or wheezing 2 puff 2023 Active 2023 44675 96710 2 Every 6 hours as needed Inhala tion False Tramadol 50 mg tablet [generic] 1 tab By Mouth Every 6 hours as needed For pain 1 tab 09/02 Inactiv e 2023 35075 03315 0 Every 6 hours as needed By Mouth False Docusate sodium 100 mg tablet [generic] 1 tab Daily as needed For constipation 1 tab 2023 Active 2023 85700 16734 1 Daily as needed By Mouth False Senna Laxative 8.6 mg tablet 1 tab By Mouth Daily as needed For constipation 1 tab 2023 Active 2023 14586 08211 0 Daily as needed By Mouth False Potassium chloride ER 20 mEq tablet,exte nded release [generic] 1 tab By Mouth Twice daily For hypokalemia 1 tab 2023 Active 2023 65825 19685 1 Twice daily By Mouth False Acyclovir 400 mg tablet [generic] 1 tab By Mouth Twice daily For preventative B-cell lymphoma 1 tab 2023 Active 2023 35613 62740 1 Twice daily By Mouth False Pantoprazol e 40 mg tablet,zaki yed release [generic] 1 tab By Mouth Once daily For gerd 1 tab 09/02 Inactiv e 2023 01175 25590 0 Once daily By Mouth False Metformin 1,000 mg tablet [generic] 1 tab By Mouth Twice daily For DM2 1 tab 09/02 Inactiv e 2023 16294 17415 0 Twice daily By Mouth False Rosuvastati n 20 mg tablet [generic] 1 tab By Mouth At bedtime For hyperlipdemia 1 tab 2023 Active 2023 21785 24812 0 At bedtime By Mouth False Polyethylen e glycol 3350 (bulk) powder [generic] 17 g By Mouth Daily as needed For constipation 17 g 2023 Active 2023 55973 43509 1 Daily as needed By Mouth False Prochlorper azine maleate 10 mg tablet [generic] 1 tab By Mouth Every 6 hours as needed For nausea 1 tab 09/02 Inactiv e 2023 98763 72276 1 Every 6 hours as needed By Mouth False Bisacodyl 5 mg tablet,zaki yed release [generic] 1 tab By Mouth Daily as needed For constipation 1 tab 2023 Active 2023 08071 78313 1 Daily as needed By Mouth False Lorazepam 0.5 mg tablet [generic] 1 tab By Mouth At bedtime as needed For anxiety 1 tab 09/02 Inactiv e 2023 05692 60037 1 At bedtime as needed By Mouth False Insulin glargine (U-300) conc. 300 unit/mL (3 mL) subcutaneou s pen [generic] 40 units Subcutaneous At bedtime For DM2 40 units 09/02 Inactiv e 2023 03807 20084 2 At bedtime Subcut aneous False Jardiance 10 mg tablet 1 tab By Mouth Once daily For DM2 1 tab 2023 Active 2023 20169 92830 7 Once daily By Mouth False Insulin [...] time order For diabetes 2023 Active 2023 08678 92290 5 3 times a day Subcut aneous False Sulfamethox azole 800 mg-trimetho prim 160 mg tablet [generic] 1 tab By Mouth 3 times a week on sunday, sunday, sunday For UTI 1 tab 09/02 Inactiv e 2023 81248 19888 1 3 times a week By Mouth False Gemtesa 75 mg tablet 75mg By Mouth Once daily For urinary management 75mg 2023 Active 2023 88729 57996 7 Once daily By Mouth False Losartan 25 mg tablet [generic] 25mg By Mouth Once daily For HTN 25mg 09/07 Inactiv e 2023 78904 94225 9 Once daily By Mouth False Ozempic 1 mg/dose (4 mg/3 mL) subcutaneou s pen injector 1mg Subcutaneous Every week For diabetes 1mg 09/04 Inactiv e 2023 55701 82174 3 Every week Subcut aneous False Carvedilol 12.5 mg tablet [generic] 12.5mg By Mouth Twice daily For CAD 12.5mg 09/07 Inactiv e 2023 13985 15084 0 Twice daily By Mouth False Loratadine 10 mg tablet [generic] 10 By Mouth Once daily As Needed For CHEMO 10 09/02 Inactiv e 2023 77899 48177 9 Once daily By Mouth False Loperamide 2 mg tablet [generic] 2mg By Mouth Every 6 hours As Needed For diarrhea 2mg 2023 Active 2023 02728 48347 6 Every 6 hours By Mouth False Spironolact one 25 mg tablet [generic] 25mg By Mouth Once daily For HTN 25mg 09/04 Inactiv e 2023 42759 62560 1 Once daily By Mouth False Lasix 40 mg tablet 40 By Mouth Once daily For htn 40 09/04 Inactiv e 2023 99448 74662 1 Once daily By Mouth False Ondansetron HCl 8 mg tablet [generic] 8mg By Mouth Every 8 hours For Encephalopath y 8mg 09/02 Inactiv e 2023 10625 33577 0 Every 8 hours By Mouth False Levofloxaci n 750 mg tablet [generic] 750 mg By Mouth Once daily For UTI 750 mg 09/02 Inactiv e 2023 67495 10111 6 Once daily By Mouth False Miralax 17 gram/dose oral powder 17grams By Mouth Once daily For constipation 17grams 09/03 Inactiv e 2023 87396 00484 0 Once daily By Mouth False Sulfamethox azole 800 mg-trimetho prim 160 mg tablet [generic] 09/02 Inactiv e 2023 51888 57791 1 Sulfamethox azole 800 mg-trimetho prim 160 mg tablet [generic] 1 tab By Mouth 3 times a week on sunday, sunday, sunday For UTI 1 tab 09/02 Inactiv e 2023 84497 37582 1 3 times a week By Mouth False Sulfamethox azole 800 mg-trimetho prim 160 mg tablet [generic] 09/02 Inactiv e 2023 26763 48201 1 Sulfamethox azole 800 mg-trimetho prim 160 mg tablet [generic] 1 tab By Mouth 3 times a week on sunday, sunday, sunday For UTI 1 tab 2023 00/00 /0000 Active 2023 70979 75415 1 3 times a week By Mouth False Polyethylen e glycol 3350 17 gram/dose oral powder [generic] 17 grams By Mouth Once daily For contispation 17 grams 09/04 Inactiv e 2023 13346 53403 4 Once daily By Mouth False Posaconazol e 100 mg tablet,zaki yed release [generic] 300mg By Mouth Once daily For Antifungal 300mg 09/18 Active 2023 35836 77134 0 Once daily By Mouth False Senna 8.6 mg tablet 2 tabs By Mouth Twice daily For contispation 2 tabs 2023 Active 2023 60313 57307 1 Twice daily By Mouth False ProSource No Carb 15 gram-60 kcal/30 mL oral liquid 30 ml By Mouth Once daily For Wound - Note total ml consumed 30 ml 2023 Active 2023 55270 46819 5 Once daily By Mouth False Levofloxaci n 500 mg tablet [generic] 500 mg By Mouth Once daily For Prophylaxis 500 mg 2023 Active 2023 79849 99815 8 Once daily By Mouth False Mirtazapine 7.5 mg tablet [generic] 7.5 mg By Mouth Once daily For Depression 7.5 mg 2023 Active 2023 21012 82785 5 Once daily By Mouth False Prochlorper azine maleate 10 mg tablet [generic] 09/02 Inactiv e 2023 91362 01164 1 Prochlorper azine maleate 10 mg tablet [generic] 1 tab By Mouth Every 6 hours as needed For nausea 1 tab 09/16 Active 2023 91976 55613 1 Every 6 hours as needed By Mouth False Ondansetron HCl 8 mg tablet [generic] 09/02 Inactiv e 2023 51307 50139 0 Ondansetron HCl 8 mg tablet [generic] 8mg By Mouth Every 8 hours For Nausea 8mg 2023 Active 2023 28741 07893 0 Every 8 hours By Mouth False Lorazepam 0.5 mg tablet [generic] 09/02 Inactiv e 2023 00215 25467 1 Lorazepam 0.5 mg tablet [generic] 1 tab By Mouth At bedtime as needed For anxiety 1 tab 09/02 Inactiv e 2023 74048 79725 1 At bedtime as needed By Mouth False Loratadine 10 mg tablet [generic] 09/02 Inactiv e 2023 31325 10365 9 Loratadine 10 mg tablet [generic] 10 By Mouth Once daily As Needed For when receiving chemotherapy 10 202300 Active 2023 34488 08839 9 Once daily By Mouth False Tramadol 50 mg tablet [generic] 09/02 Inactiv e 2023 63958 19794 0 Tramadol 50 mg tablet [generic] 1 tab By Mouth Every 6 hours as needed For moderate/mynor re pain 1 tab 09/02 Inactiv e 2023 24907 93738 0 Every 6 hours as needed By Mouth False Phenazopyri dine 200 mg tablet [generic] 09/02 Inactiv e 2023 72471 34498 1 Phenazopyri dine 200 mg tablet [generic] 1 tab By Mouth Three times daily as needed For bladder pain 1 tab 202300 / Active 2023 94202 58666 1 Three times daily as needed By Mouth False Tylenol 325 mg tablet 09/02 Inactiv e 2023 75046 90355 0 Tylenol 325 mg tablet 2 tabs By Mouth Every 4 hours as needed For DO NOT EXCEED 3000 MG APAP/24 Hours For mild Pain 2 tabs 202300 /0000 Active 2023 16131 97618 0 Every 4 hours as needed By Mouth False Metformin 1,000 mg tablet [generic] 09/02 Inactiv e 2023 67442 43812 0 Metformin 1,000 mg tablet [generic] 1 tab By Mouth Twice daily with meals For DM2 1 tab 2023 Active 2023 74727 00813 0 Twice daily By Mouth False Pantoprazol e 40 mg tablet,zaki yed release [generic] 09/02 Inactiv e 2023 24802 04912 0 Pantoprazol e 40 mg tablet,zaki yed release [generic] 1 tab By Mouth Once daily For gerd 1 tab 2023 Active 2023 32941 38013 0 Once daily By Mouth False Tramadol 50 mg tablet [generic] 09/02 Inactiv e 2023 91130 15454 0 Tramadol 50 mg tablet [generic] 1 tab By Mouth Every 6 hours as needed For moderate/mynor re pain 1 tab 2023 Active 2023 35363 46261 0 Every 6 hours as needed By Mouth False Lorazepam 0.5 mg tablet [generic] 09/02 Inactiv e 2023 54108 11324 1 Lorazepam 0.5 mg tablet [generic] 1 tab By Mouth At bedtime as needed For anxiety 1 tab 2023 Active 2023 67526 63669 1 At bedtime as needed By Mouth False Polyethylen e glycol 3350 17 gram/dose oral powder [generic] 17 grams By Mouth Daily as needed PRN For order changed to PRN daily forcontispati on 17 grams 2023 Active 2023 55534 23919 4 Daily as needed By Mouth False Spironolact one 25 mg tablet [generic] 12.5 mg By Mouth Once daily For ESSENTIAL (PRIMARY) HYPERTENSION 12.5 mg 2023 Active 2023 27922 28390 1 Once daily By Mouth I10. False Furosemide 20 mg tablet [generic] 20 mg By Mouth Once daily For UNSPECIFIED SYSTOLIC (CONGESTIVE) HEART FAILURE 20 mg 2023 Active 2023 85943 25049 0 Once daily By Mouth I50.20 False Carvedilol 12.5 mg tablet [generic] 09/07 Inactiv e 2023 78542 52548 0 Carvedilol 12.5 mg tablet [generic] 12.5mg By Mouth Twice daily For CAD hold for systolic b/p less than 100 12.5mg 2023 Active 2023 46624 42361 0 Twice daily By Mouth False Losartan 25 mg tablet [generic] 09/07 Inactiv e 2023 35936 20150 9 Losartan 25 mg tablet [generic] 25mg By Mouth Once daily For HTN 25mg 2023 Active 2023 31339 81354 9 Once daily By Mouth False Unstageable [...] Active I25.10 Atherosclerotic hear t disease of [place] coronary artery without angina pectoris 08/29/2024 Active [...] Temperature SpO2 Blood Sugar Pulse Respirations 206 52878 1 64.00 mm[Hg] - Sitting 109.00 mm[Hg] - Sitting 98.70 Tympanic 90.00 % 64.00/ min 16.00/min 80316 206 80954 0 178.60 NI 05826 206 26418 6 63 NI 59601 206 50378 4 72.00 mm[Hg] - Sitting 121.00 mm[Hg] - Sitting 100.40 Forehead Scan 92.00 % 60.00/ min 18.00/min 45662 206 35958 8 72.00 mm[Hg] - Sitting 121.00 mm[Hg] - Sitting 100.40 Tympanic 26198 206 25787 9 60.00/ min 18.00/min 23630 206 66010 5 148.00 mg/dL 06365 207 11305 7 63.00 mm[Hg] - Sitting 122.00 mm[Hg] - Sitting 100.40 Tympanic 60.00/ min 18.00/min 78165 207 00059 7 55.00 mm[Hg] - Sitting 104.00 mm[Hg] - Sitting 98.40 Forehead Scan 96.00 % 66.00/ min 18.00/min 62806 207 59194 5 120.00 mg/dL 207 09893 6 101.00 mg/dL 207 54233 8 63.00 mm[Hg] - Sitting 122.00 mm[Hg] - Sitting 30195 207 28716 7 134.00 mg/dL 207 93131 9 134.00 mg/dL 13196 207 99746 0 127.00 mg/dL 31777 207 46451 7 127.00 mg/dL 207 94549 9 122.00 mg/dL 52929 208 03180 9 62.00 mm[Hg] - Sitting 106.00 mm[Hg] - Sitting 98.60 Tympanic 66.00/ min 18.00/min 54049 208 03228 3 117.00 mg/dL 35944 208 66418 2 155.00 mg/dL 39479 208 27162 6 98.60 Tympanic 82630 208 71870 1 123.00 mg/dL 26544 208 85738 2 123.00 mg/dL 77390 208 53420 4 62.00 mm[Hg] - Sitting 106.00 mm[Hg] - Sitting 40261 208 95361 7 123.00 mg/dL 52242 208 21742 1 123.00 mg/dL 31691 208 93716 7 136.00 mg/dL 36512 209 81505 0 60.00 mm[Hg] - Sitting 113.00 mm[Hg] - Sitting 98.50 Forehead Scan 98.00 % 61.00/ min 16.00/min 87779 209 02128 7 114.00 mg/dL 28318 209 17060 7 111.00 mg/dL 31151 209 87735 0 98.00 Tympanic 62363 209 64474 2 68.00 mm[Hg] - Sitting 118.00 mm[Hg] - Sitting 08218 209 92295 5 156.00 mg/dL 55531 209 65263 4 156.00 mg/dL 41497 209 44275 5 132.00 mg/dL 28859 209 51564 4 132.00 mg/dL 45929 209 63637 0 136.00 mg/dL 98132 210 87658 0 52.00 mm[Hg] - Sitting 119.00 mm[Hg] - Sitting 98.40 Forehead Scan 96.00 % 57.00/ min 18.00/min 74189 210 39620 9 107.00 mg/dL 47763 210 56499 7 108.00 mg/dL 76860 210 15003 8 97.00 Tympanic 32916 210 69201 2 126.00 mg/dL 95872 210 62530 0 126.00 mg/dL 88452 210 33624 9 126.00 mg/dL 82756 210 92843 2 154.00 mg/dL 39647 211 76683 0 53.00 mm[Hg] - Lying Down 104.00 mm[Hg] - Lying Down 98.90 Tympanic 93.00 % 60.00/ min 18.00/min 75319 211 43585 0 62.00 mm[Hg] - Sitting 72.00 mm[Hg] - Sitting 98.30 Tympanic 96.00 % 62.00/ min 18.00/min 11012 211 94151 9 136.00 mg/dL 16574 211 17225 8 131.00 mg/dL 15932 211 96369 3 118.00 mg/dL 57371 211 24540 9 130.00 mg/dL 32555 212 05513 7 46.00 mm[Hg] - Sitting 101.00 mm[Hg] - Sitting 98.50 Tympanic 96.00 % 62.00/ min 20.00/min 69063 212 08151 1 110.00 mg/dL 04881 212 58112 8 110.00 mg/dL 72407 212 54011 8 152.00 mg/dL 84051 212 29024 0 120.00 mg/dL 26805 213 12018 9 123.00 mg/dL 68386 213 20704 9 123.00 mg/dL 80631 213 29978 5 06540 213 05040 2 92855 213 03277 8 47444 213 29353 8 62651 213 85594 5 134.00 mg/dL 36722 214 18216 5 50.00 mm[Hg] - Sitting 108.00 mm[Hg] - Sitting 98.20 Tympanic 97.00 % 60.00/ min 20.00/min 33699 214 74867 0 53.00 mm[Hg] - Sitting 104.00 mm[Hg] - Sitting 97.80 Tympanic 97.00 % 61.00/ min 18.00/min 86909 214 83321 4 122.00 mg/dL 98206 214 25447 2 122.00 mg/dL 71528 214 77080 7 142.00 mg/dL 74227 214 58307 4 142.00 mg/dL 83623 214 36217 7 115.00 mg/dL 89492 214 09122 9 115.00 mg/dL 15954 214 64355 1 121.00 mg/dL 77317 215 21294 5 130.00 mg/dL 55174 215 18302 8 130.00 mg/dL 63082 215 60356 5 130.00 mg/dL 71654 215 42637 2 117.00 mg/dL Immunizations Vaccine Date Status Influenza 08/29/2024 Completed (PCV13)Pneumococcal 08/29/2024 Completed
--- OUTSIDE RECORDS SUMMARY | 2024-09-08 22:00 | External Medical Summary | Continuity Of Care Document ---
Author Name Unknown Address [address] [address] Organization [facility] Ariadne () Care Team Providers Care Relief Map Modeler Name Role Phone DO Perdomo Amy Primary Care Provider [phone] Allergies Allergy Reaction Start Date End Date [...] 3 0.1 mL 09/01 Inactiv e 2023 10579 66266 0 1 time Intrad ermal False Tubersol 5 tub. unit/0.1 mL intradermal injection solution [Tuberculin PPD] 0.1mL Intradermal 1 time For PPD 2nd Step Give 2nd Step PPD Day 1 and Read results Day 3 (schedule 7 days after 1st READ) 0.1mL 09/10 Active 2023 31939 76604 0 1 time Intrad ermal False Tylenol 325 mg tablet 2 tabs By Mouth Every 4 hours as needed For Pain DO NOT EXCEED 3000 MG APAP/24 Hours 2 tabs 09/02 Inactiv e 2023 49767 38581 0 Every 4 hours as needed By Mouth False Tylenol 325 mg tablet 2 tabs By Mouth Every 4 hours as needed For Fever >100 DO NOT EXCEED 3000 MG APAP/24 Hours 2 tabs 2023 0000 /0000 Active 2023 09655 82459 0 Every 4 hours as needed By Mouth False Dulcolax (bisacodyl) 10 mg rectal suppository One Suppository per rectum PRN if Milk of Magnisia ineffective. Give on day 5 of no BM 1 sup 2023 Active 2023 64478 12521 1 Daily as needed Rectal False Fleet Enema 19 gram-7 gram/118 mL Administer per rectum PRN one time if dulcolax suppository not effective. Give on day 6 of no BM 1 2023 Active 2023 35581 11467 6 Daily as needed Rectal False Dextrose 50 % in water (D50W) intravenous solution [generic] Dextrose 50% jose manuel 20-50 ml (slow push) Intravenous if Glucagon not effective after 15 minutes. CALL 911 for ED Evaluation. 50% jose manuel 2023 Active 2023 37858 74291 9 Intrav enous False Glucagon (HCl) Emergency Kit 1 mg solution for injection Administer Glucagon 1 mg Intramuscular if 15 minutes after GLucose Gel is administered Glucose remains less than 70 1 mg 2023 Active 2023 72120 17015 2 Intram uscula r False Glucose Gel 40 % oral gel [Dextrose] PRN If resident is unable to swallow (with or without symptoms) and Glucose results less than 70 give GLucose 40% Gel 1 tube orally - Recheck Glucose 15 minutes after administratio n. 1 tube 2023 Active 2023 45026 13099 8 By Mouth False Santyl 250 unit/gram topical ointment dose Topical Once daily to wound bed daily with wound care For Unstageable Pressure injury dose 2023 Active 2023 62974 39747 0 Once daily Topica l False Fluconazole 200 mg tablet [generic] 1 tab By Mouth Once daily For Yeast infection 1 tab 09/01 Inactiv e 2023 10123 27096 3 Once daily By Mouth False Phenazopyri dine 200 mg tablet [generic] 1 tab By Mouth Three times daily as needed For pain 1 tab 09/02 Inactiv e 2023 24647 73355 1 Three times daily as needed By Mouth False Aspirin 81 mg tablet,zaki yed release [generic] 1 tab By Mouth At bedtime For CAD 1 tab 2023 Active 2023 01326 73958 9 At bedtime By Mouth False BD AutoShield Duo Pen Needle 30 gauge x 3/16in 1 4 times a day subcutaneous 4 times a day change needle wqith every use of insulin For Type 2 diabetes Mellitus 1 2023 Active 2023 62451 13375 5 4 times a day Subcut aneous False Albuterol sulfate HFA 90 mcg/actuati on aerosol inhaler [generic] 2 puff Inhalation Every 6 hours as needed For SOB or wheezing 2 puff 2023 Active 2023 73740 08921 2 Every 6 hours as needed Inhala tion False Tramadol 50 mg tablet [generic] 1 tab By Mouth Every 6 hours as needed For pain 1 tab 09/02 Inactiv e 2023 82545 13506 0 Every 6 hours as needed By Mouth False Docusate sodium 100 mg tablet [generic] 1 tab Daily as needed For constipation 1 tab 2023 Active 2023 91268 45320 1 Daily as needed By Mouth False Senna Laxative 8.6 mg tablet 1 tab By Mouth Daily as needed For constipation 1 tab 2023 Active 2023 76765 71410 0 Daily as needed By Mouth False Potassium chloride ER 20 mEq tablet,exte nded release [generic] 1 tab By Mouth Twice daily For hypokalemia 1 tab 2023 Active 2023 32187 99293 1 Twice daily By Mouth False Acyclovir 400 mg tablet [generic] 1 tab By Mouth Twice daily For preventative B-cell lymphoma 1 tab 2023 Active 2023 30667 69873 1 Twice daily By Mouth False Pantoprazol e 40 mg tablet,zaki yed release [generic] 1 tab By Mouth Once daily For gerd 1 tab 09/02 Inactiv e 2023 84061 15999 0 Once daily By Mouth False Metformin 1,000 mg tablet [generic] 1 tab By Mouth Twice daily For DM2 1 tab 09/02 Inactiv e 2023 60998 78957 0 Twice daily By Mouth False Rosuvastati n 20 mg tablet [generic] 1 tab By Mouth At bedtime For hyperlipdemia 1 tab 2023 Active 2023 17960 05073 0 At bedtime By Mouth False Polyethylen e glycol 3350 (bulk) powder [generic] 17 g By Mouth Daily as needed For constipation 17 g 2023 Active 2023 50019 98126 1 Daily as needed By Mouth False Prochlorper azine maleate 10 mg tablet [generic] 1 tab By Mouth Every 6 hours as needed For nausea 1 tab 09/02 Inactiv e 2023 60161 12670 1 Every 6 hours as needed By Mouth False Bisacodyl 5 mg tablet,zaki yed release [generic] 1 tab By Mouth Daily as needed For constipation 1 tab 2023 Active 2023 60903 17453 1 Daily as needed By Mouth False Lorazepam 0.5 mg tablet [generic] 1 tab By Mouth At bedtime as needed For anxiety 1 tab 09/02 Inactiv e 2023 40231 39937 1 At bedtime as needed By Mouth False Insulin glargine (U-300) conc. 300 unit/mL (3 mL) subcutaneou s pen [generic] 40 units Subcutaneous At bedtime For DM2 40 units 09/02 Inactiv e 2023 40924 92033 2 At bedtime Subcut aneous False Jardiance 10 mg tablet 1 tab By Mouth Once daily For DM2 1 tab 2023 Active 2023 43455 36681 7 Once daily By Mouth False Insulin [...] time order For diabetes 2023 Active 2023 29778 75735 5 3 times a day Subcut aneous False Sulfamethox azole 800 mg-trimetho prim 160 mg tablet [generic] 1 tab By Mouth 3 times a week on sunday, sunday, sunday For UTI 1 tab 09/02 Inactiv e 2023 81922 24835 1 3 times a week By Mouth False Gemtesa 75 mg tablet 75mg By Mouth Once daily For urinary management 75mg 2023 Active 2023 80945 20442 7 Once daily By Mouth False Losartan 25 mg tablet [generic] 25mg By Mouth Once daily For HTN 25mg 09/07 Inactiv e 2023 54627 05945 9 Once daily By Mouth False Ozempic 1 mg/dose (4 mg/3 mL) subcutaneou s pen injector 1mg Subcutaneous Every week For diabetes 1mg 09/04 Inactiv e 2023 90176 38450 3 Every week Subcut aneous False Carvedilol 12.5 mg tablet [generic] 12.5mg By Mouth Twice daily For CAD 12.5mg 09/07 Inactiv e 2023 33803 73075 0 Twice daily By Mouth False Loratadine 10 mg tablet [generic] 10 By Mouth Once daily As Needed For CHEMO 10 09/02 Inactiv e 2023 30442 68502 9 Once daily By Mouth False Loperamide 2 mg tablet [generic] 2mg By Mouth Every 6 hours As Needed For diarrhea 2mg 2023 Active 2023 19326 31626 6 Every 6 hours By Mouth False Spironolact one 25 mg tablet [generic] 25mg By Mouth Once daily For HTN 25mg 09/04 Inactiv e 2023 38785 16014 1 Once daily By Mouth False Lasix 40 mg tablet 40 By Mouth Once daily For htn 40 09/04 Inactiv e 2023 52500 87805 1 Once daily By Mouth False Ondansetron HCl 8 mg tablet [generic] 8mg By Mouth Every 8 hours For Encephalopath y 8mg 09/02 Inactiv e 2023 72857 83931 0 Every 8 hours By Mouth False Levofloxaci n 750 mg tablet [generic] 750 mg By Mouth Once daily For UTI 750 mg 09/02 Inactiv e 2023 65883 77910 6 Once daily By Mouth False Miralax 17 gram/dose oral powder 17grams By Mouth Once daily For constipation 17grams 09/03 Inactiv e 2023 66575 30858 0 Once daily By Mouth False Sulfamethox azole 800 mg-trimetho prim 160 mg tablet [generic] 09/02 Inactiv e 2023 96219 72545 1 Sulfamethox azole 800 mg-trimetho prim 160 mg tablet [generic] 1 tab By Mouth 3 times a week on sunday, sunday, sunday For UTI 1 tab 09/02 Inactiv e 2023 96832 28254 1 3 times a week By Mouth False Sulfamethox azole 800 mg-trimetho prim 160 mg tablet [generic] 09/02 Inactiv e 2023 70538 87111 1 Sulfamethox azole 800 mg-trimetho prim 160 mg tablet [generic] 1 tab By Mouth 3 times a week on sunday, sunday, sunday For UTI 1 tab 2023 00/00 /0000 Active 2023 98339 37698 1 3 times a week By Mouth False Polyethylen e glycol 3350 17 gram/dose oral powder [generic] 17 grams By Mouth Once daily For contispation 17 grams 09/04 Inactiv e 2023 08826 48270 4 Once daily By Mouth False Posaconazol e 100 mg tablet,zaki yed release [generic] 300mg By Mouth Once daily For Antifungal 300mg 09/18 Active 2023 10587 63287 0 Once daily By Mouth False Senna 8.6 mg tablet 2 tabs By Mouth Twice daily For contispation 2 tabs 2023 Active 2023 15742 58143 1 Twice daily By Mouth False ProSource No Carb 15 gram-60 kcal/30 mL oral liquid 30 ml By Mouth Once daily For Wound - Note total ml consumed 30 ml 2023 Active 2023 13665 34826 5 Once daily By Mouth False Levofloxaci n 500 mg tablet [generic] 500 mg By Mouth Once daily For Prophylaxis 500 mg 2023 Active 2023 44762 75790 8 Once daily By Mouth False Mirtazapine 7.5 mg tablet [generic] 7.5 mg By Mouth Once daily For Depression 7.5 mg 2023 Active 2023 34004 75947 5 Once daily By Mouth False Prochlorper azine maleate 10 mg tablet [generic] 09/02 Inactiv e 2023 61107 47785 1 Prochlorper azine maleate 10 mg tablet [generic] 1 tab By Mouth Every 6 hours as needed For nausea 1 tab 09/16 Active 2023 97853 07469 1 Every 6 hours as needed By Mouth False Ondansetron HCl 8 mg tablet [generic] 09/02 Inactiv e 2023 30923 25144 0 Ondansetron HCl 8 mg tablet [generic] 8mg By Mouth Every 8 hours For Nausea 8mg 2023 Active 2023 57896 59661 0 Every 8 hours By Mouth False Lorazepam 0.5 mg tablet [generic] 09/02 Inactiv e 2023 80085 56346 1 Lorazepam 0.5 mg tablet [generic] 1 tab By Mouth At bedtime as needed For anxiety 1 tab 09/02 Inactiv e 2023 01058 34552 1 At bedtime as needed By Mouth False Loratadine 10 mg tablet [generic] 09/02 Inactiv e 2023 18837 02912 9 Loratadine 10 mg tablet [generic] 10 By Mouth Once daily As Needed For when receiving chemotherapy 10 202300 Active 2023 80874 84420 9 Once daily By Mouth False Tramadol 50 mg tablet [generic] 09/02 Inactiv e 2023 85393 69252 0 Tramadol 50 mg tablet [generic] 1 tab By Mouth Every 6 hours as needed For moderate/mynor re pain 1 tab 09/02 Inactiv e 2023 69040 28453 0 Every 6 hours as needed By Mouth False Phenazopyri dine 200 mg tablet [generic] 09/02 Inactiv e 2023 54601 20638 1 Phenazopyri dine 200 mg tablet [generic] 1 tab By Mouth Three times daily as needed For bladder pain 1 tab 202300 / Active 2023 94029 72610 1 Three times daily as needed By Mouth False Tylenol 325 mg tablet 09/02 Inactiv e 2023 69038 69985 0 Tylenol 325 mg tablet 2 tabs By Mouth Every 4 hours as needed For DO NOT EXCEED 3000 MG APAP/24 Hours For mild Pain 2 tabs 202300 /0000 Active 2023 94076 12685 0 Every 4 hours as needed By Mouth False Metformin 1,000 mg tablet [generic] 09/02 Inactiv e 2023 19818 17397 0 Metformin 1,000 mg tablet [generic] 1 tab By Mouth Twice daily with meals For DM2 1 tab 2023 Active 2023 17500 29538 0 Twice daily By Mouth False Pantoprazol e 40 mg tablet,zaki yed release [generic] 09/02 Inactiv e 2023 14893 36677 0 Pantoprazol e 40 mg tablet,zaki yed release [generic] 1 tab By Mouth Once daily For gerd 1 tab 2023 Active 2023 61245 76632 0 Once daily By Mouth False Tramadol 50 mg tablet [generic] 09/02 Inactiv e 2023 92516 24939 0 Tramadol 50 mg tablet [generic] 1 tab By Mouth Every 6 hours as needed For moderate/mynor re pain 1 tab 2023 Active 2023 59634 42596 0 Every 6 hours as needed By Mouth False Lorazepam 0.5 mg tablet [generic] 09/02 Inactiv e 2023 51604 95867 1 Lorazepam 0.5 mg tablet [generic] 1 tab By Mouth At bedtime as needed For anxiety 1 tab 2023 Active 2023 76111 88583 1 At bedtime as needed By Mouth False Polyethylen e glycol 3350 17 gram/dose oral powder [generic] 17 grams By Mouth Daily as needed PRN For order changed to PRN daily forcontispati on 17 grams 2023 Active 2023 04598 65012 4 Daily as needed By Mouth False Spironolact one 25 mg tablet [generic] 12.5 mg By Mouth Once daily For ESSENTIAL (PRIMARY) HYPERTENSION 12.5 mg 2023 Active 2023 52069 08834 1 Once daily By Mouth I10. False Furosemide 20 mg tablet [generic] 20 mg By Mouth Once daily For UNSPECIFIED SYSTOLIC (CONGESTIVE) HEART FAILURE 20 mg 2023 Active 2023 64835 43036 0 Once daily By Mouth I50.20 False Carvedilol 12.5 mg tablet [generic] 09/07 Inactiv e 2023 91704 05923 0 Carvedilol 12.5 mg tablet [generic] 12.5mg By Mouth Twice daily For CAD hold for systolic b/p less than 100 12.5mg 2023 Active 2023 61396 89545 0 Twice daily By Mouth False Losartan 25 mg tablet [generic] 09/07 Inactiv e 2023 80484 10817 9 Losartan 25 mg tablet [generic] 25mg By Mouth Once daily For HTN 25mg 2023 Active 2023 56306 54606 9 Once daily By Mouth False Unstageable [...] Active I25.10 Atherosclerotic hear t disease of [place] coronary artery without angina pectoris 08/29/2024 Active [...] Temperature SpO2 Blood Sugar Pulse Respirations 206 32824 1 64.00 mm[Hg] - Sitting 109.00 mm[Hg] - Sitting 98.70 Tympanic 90.00 % 64.00/ min 16.00/min 24737 206 30185 0 178.60 NI 09145 206 12328 6 63 NI 96755 206 08861 4 72.00 mm[Hg] - Sitting 121.00 mm[Hg] - Sitting 100.40 Forehead Scan 92.00 % 60.00/ min 18.00/min 31895 206 20034 8 72.00 mm[Hg] - Sitting 121.00 mm[Hg] - Sitting 100.40 Tympanic 77961 206 98457 9 60.00/ min 18.00/min 27083 206 57409 5 148.00 mg/dL 84173 207 68366 7 63.00 mm[Hg] - Sitting 122.00 mm[Hg] - Sitting 100.40 Tympanic 60.00/ min 18.00/min 70350 207 65772 7 55.00 mm[Hg] - Sitting 104.00 mm[Hg] - Sitting 98.40 Forehead Scan 96.00 % 66.00/ min 18.00/min 83057 207 33021 5 120.00 mg/dL 207 17319 6 101.00 mg/dL 207 10740 8 63.00 mm[Hg] - Sitting 122.00 mm[Hg] - Sitting 00819 207 44626 7 134.00 mg/dL 207 51099 9 134.00 mg/dL 13426 207 07329 0 127.00 mg/dL 10072 207 00792 7 127.00 mg/dL 207 50774 9 122.00 mg/dL 00296 208 32002 9 62.00 mm[Hg] - Sitting 106.00 mm[Hg] - Sitting 98.60 Tympanic 66.00/ min 18.00/min 36953 208 89963 3 117.00 mg/dL 25204 208 80053 2 155.00 mg/dL 14486 208 19982 6 98.60 Tympanic 40215 208 82474 1 123.00 mg/dL 78441 208 84475 2 123.00 mg/dL 15773 208 56880 4 62.00 mm[Hg] - Sitting 106.00 mm[Hg] - Sitting 25642 208 05646 7 123.00 mg/dL 07809 208 67230 1 123.00 mg/dL 27457 208 47123 7 136.00 mg/dL 74558 209 05349 0 60.00 mm[Hg] - Sitting 113.00 mm[Hg] - Sitting 98.50 Forehead Scan 98.00 % 61.00/ min 16.00/min 83726 209 19069 7 114.00 mg/dL 34868 209 29300 7 111.00 mg/dL 58385 209 05549 0 98.00 Tympanic 90368 209 94319 2 68.00 mm[Hg] - Sitting 118.00 mm[Hg] - Sitting 51548 209 06637 5 156.00 mg/dL 98366 209 84181 4 156.00 mg/dL 56175 209 71181 5 132.00 mg/dL 25992 209 27613 4 132.00 mg/dL 17445 209 45273 0 136.00 mg/dL 38077 210 31007 0 52.00 mm[Hg] - Sitting 119.00 mm[Hg] - Sitting 98.40 Forehead Scan 96.00 % 57.00/ min 18.00/min 23237 210 39635 9 107.00 mg/dL 69929 210 74058 7 108.00 mg/dL 82446 210 91817 8 97.00 Tympanic 13262 210 88077 2 126.00 mg/dL 79685 210 37604 0 126.00 mg/dL 39934 210 44124 9 126.00 mg/dL 63277 210 24229 2 154.00 mg/dL 40088 211 54105 0 53.00 mm[Hg] - Lying Down 104.00 mm[Hg] - Lying Down 98.90 Tympanic 93.00 % 60.00/ min 18.00/min 46158 211 31560 0 62.00 mm[Hg] - Sitting 72.00 mm[Hg] - Sitting 98.30 Tympanic 96.00 % 62.00/ min 18.00/min 57668 211 21398 9 136.00 mg/dL 42648 211 47349 8 131.00 mg/dL 13878 211 72401 3 118.00 mg/dL 73947 211 00368 9 130.00 mg/dL 75148 212 11208 7 46.00 mm[Hg] - Sitting 101.00 mm[Hg] - Sitting 98.50 Tympanic 96.00 % 62.00/ min 20.00/min 00982 212 61236 1 110.00 mg/dL 94428 212 49355 8 110.00 mg/dL 60533 212 89882 8 152.00 mg/dL 39085 212 43383 0 120.00 mg/dL 44070 213 92510 9 123.00 mg/dL 15130 213 93455 9 123.00 mg/dL 82466 213 48718 5 69574 213 95016 2 91686 213 95966 8 80748 213 85830 8 92017 213 97378 5 134.00 mg/dL 96527 214 68834 5 50.00 mm[Hg] - Sitting 108.00 mm[Hg] - Sitting 98.20 Tympanic 97.00 % 60.00/ min 20.00/min 91221 214 99016 0 53.00 mm[Hg] - Sitting 104.00 mm[Hg] - Sitting 97.80 Tympanic 97.00 % 61.00/ min 18.00/min 30581 214 31983 4 122.00 mg/dL 97670 214 48395 2 122.00 mg/dL 26586 214 04039 7 142.00 mg/dL 56187 214 18597 4 142.00 mg/dL 52057 214 50562 7 115.00 mg/dL 96389 214 32415 9 115.00 mg/dL 15386 214 71616 1 121.00 mg/dL 92821 215 55918 5 97.80 Forehead Scan 98.00 % 60.00/ min 18.00/min 04503 215 78853 6 46.00 mm[Hg] - Lying Down 85.00 mm[Hg] - Lying Down 25657 215 46718 5 130.00 mg/dL 64308 215 13770 8 130.00 mg/dL 63885 215 88669 5 130.00 mg/dL 215 61274 2 117.00 mg/dL 215 31923 3 138.00 mg/dL 216 94946 1 62.00 mm[Hg] - Lying Down 90.00 mm[Hg] - Lying Down 216 14947 3 94.00 mg/dL Immunizations Vaccine Date Status Influenza 08/29/2024 Completed (PCV13)Pneumococcal 08/29/2024 Completed
--- OUTSIDE RECORDS SUMMARY | 2024-09-08 22:00 | External Medical Summary | Continuity Of Care Document ---
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 unit/0.1 mL intradermal injection solution [Tuberculin PPD] 0.1mL Intradermal 1 time For PPD 2nd Step Give 2nd Step PPD Day 1 and Read results Day 3 (schedule 7 days after 1st READ) 0.1mL 09/10 Active 2023 64454 86220 0 1 time Intrad ermal False Tylenol 325 mg tablet 2 tabs By Mouth Every 4 hours as needed For Pain DO NOT EXCEED 3000 MG APAP/24 Hours 2 tabs 09/02 Inactiv e 2023 36679 54214 0 Every 4 hours as needed By Mouth False Tylenol 325 mg tablet 2 tabs By Mouth Every 4 hours as needed For Fever >100 DO NOT EXCEED 3000 MG APAP/24 Hours 2 tabs 2023 0000 /0000 Active 2023 58156 63160 0 Every 4 hours as needed By Mouth False Dulcolax (bisacodyl) 10 mg rectal suppository One Suppository per rectum PRN if Milk of Magnisia ineffective. Give on day 5 of no BM 1 sup 2023 Active 2023 43006 30088 1 Daily as needed Rectal False Fleet Enema 19 gram-7 gram/118 mL Administer per rectum PRN one time if dulcolax suppository not effective. Give on day 6 of no BM 1 2023 Active 2023 76860 14849 6 Daily as needed Rectal False Dextrose 50 % in water (D50W) intravenous solution [generic] Dextrose 50% jose manuel 20-50 ml (slow push) Intravenous if Glucagon not effective after 15 minutes. CALL 911 for ED Evaluation. 50% jose manuel 2023 Active 2023 47682 87309 9 Intrav enous False Glucagon (HCl) Emergency Kit 1 mg solution for injection Administer Glucagon 1 mg Intramuscular if 15 minutes after GLucose Gel is administered Glucose remains less than 70 1 mg 2023 Active 2023 26644 86825 2 Intram uscula r False Glucose Gel 40 % oral gel [Dextrose] PRN If resident is unable to swallow (with or without symptoms) and Glucose results less than 70 give GLucose 40% Gel 1 tube orally - Recheck Glucose 15 minutes after administratio n. 1 tube 2023 Active 2023 70698 70245 8 By Mouth False Santyl 250 unit/gram topical ointment dose Topical Once daily to wound bed daily with wound care For Unstageable Pressure injury dose 2023 Active 2023 58232 47578 0 Once daily Topica l False Fluconazole 200 mg tablet [generic] 1 tab By Mouth Once daily For Yeast infection 1 tab 09/01 Inactiv e 2023 62582 07275 3 Once daily By Mouth False Phenazopyri dine 200 mg tablet [generic] 1 tab By Mouth Three times daily as needed For pain 1 tab 09/02 Inactiv e 2023 16833 13921 1 Three times daily as needed By Mouth False Aspirin 81 mg tablet,zaki yed release [generic] 1 tab By Mouth At bedtime For CAD 1 tab 2023 Active 2023 32328 09214 9 At bedtime By Mouth False BD AutoShield Duo Pen Needle 30 gauge x 3/16in 1 4 times a day subcutaneous 4 times a day change needle wqith every use of insulin For Type 2 diabetes Mellitus 1 2023 Active 2023 47574 83724 5 4 times a day Subcut aneous False Albuterol sulfate HFA 90 mcg/actuati on aerosol inhaler [generic] 2 puff Inhalation Every 6 hours as needed For SOB or wheezing 2 puff 2023 Active 2023 31942 41612 2 Every 6 hours as needed Inhala tion False Tramadol 50 mg tablet [generic] 1 tab By Mouth Every 6 hours as needed For pain 1 tab 09/02 Inactiv e 2023 67391 69211 0 Every 6 hours as needed By Mouth False Docusate sodium 100 mg tablet [generic] 1 tab Daily as needed For constipation 1 tab 2023 Active 2023 19169 27162 1 Daily as needed By Mouth False Senna Laxative 8.6 mg tablet 1 tab By Mouth Daily as needed For constipation 1 tab 2023 Active 2023 85376 54087 0 Daily as needed By Mouth False Potassium chloride ER 20 mEq tablet,exte nded release [generic] 1 tab By Mouth Twice daily For hypokalemia 1 tab 2023 Active 2023 94196 59236 1 Twice daily By Mouth False Acyclovir 400 mg tablet [generic] 1 tab By Mouth Twice daily For preventative B-cell lymphoma 1 tab 2023 Active 2023 53556 81836 1 Twice daily By Mouth False Pantoprazol e 40 mg tablet,zaki yed release [generic] 1 tab By Mouth Once daily For gerd 1 tab 09/02 Inactiv e 2023 38760 94040 0 Once daily By Mouth False Metformin 1,000 mg tablet [generic] 1 tab By Mouth Twice daily For DM2 1 tab 09/02 Inactiv e 2023 74471 41247 0 Twice daily By Mouth False Rosuvastati n 20 mg tablet [generic] 1 tab By Mouth At bedtime For hyperlipdemia 1 tab 2023 Active 2023 92371 59872 0 At bedtime By Mouth False Polyethylen e glycol 3350 (bulk) powder [generic] 17 g By Mouth Daily as needed For constipation 17 g 2023 Active 2023 20673 29342 1 Daily as needed By Mouth False Prochlorper azine maleate 10 mg tablet [generic] 1 tab By Mouth Every 6 hours as needed For nausea 1 tab 09/02 Inactiv e 2023 08117 27718 1 Every 6 hours as needed By Mouth False Bisacodyl 5 mg tablet,zaki yed release [generic] 1 tab By Mouth Daily as needed For constipation 1 tab 2023 Active 2023 15140 07388 1 Daily as needed By Mouth False Lorazepam 0.5 mg tablet [generic] 1 tab By Mouth At bedtime as needed For anxiety 1 tab 09/02 Inactiv e 2023 82190 58985 1 At bedtime as needed By Mouth False Insulin glargine (U-300) conc. 300 unit/mL (3 mL) subcutaneou s pen [generic] 40 units Subcutaneous At bedtime For DM2 40 units 09/02 Inactiv e 2023 40495 85062 2 At bedtime Subcut aneous False Jardiance 10 mg tablet 1 tab By Mouth Once daily For DM2 1 tab 2023 Active 2023 07722 08947 7 Once daily By Mouth False Insulin [...] time order For diabetes 2023 Active 2023 39560 98682 5 3 times a day Subcut aneous False Sulfamethox azole 800 mg-trimetho prim 160 mg tablet [generic] 1 tab By Mouth 3 times a week on sunday, sunday, sunday For UTI 1 tab 09/02 Inactiv e 2023 91961 30781 1 3 times a week By Mouth False Gemtesa 75 mg tablet 75mg By Mouth Once daily For urinary management 75mg 2023 Active 2023 27714 73715 7 Once daily By Mouth False Losartan 25 mg tablet [generic] 25mg By Mouth Once daily For HTN 25mg 09/07 Inactiv e 2023 41810 40214 9 Once daily By Mouth False Ozempic 1 mg/dose (4 mg/3 mL) subcutaneou s pen injector 1mg Subcutaneous Every week For diabetes 1mg 09/04 Inactiv e 2023 64027 11064 3 Every week Subcut aneous False Carvedilol 12.5 mg tablet [generic] 12.5mg By Mouth Twice daily For CAD 12.5mg 09/07 Inactiv e 2023 86655 49567 0 Twice daily By Mouth False Loratadine 10 mg tablet [generic] 10 By Mouth Once daily As Needed For CHEMO 10 09/02 Inactiv e 2023 31682 37599 9 Once daily By Mouth False Loperamide 2 mg tablet [generic] 2mg By Mouth Every 6 hours As Needed For diarrhea 2mg 2023 Active 2023 31251 78893 6 Every 6 hours By Mouth False Spironolact one 25 mg tablet [generic] 25mg By Mouth Once daily For HTN 25mg 09/04 Inactiv e 2023 87844 82228 1 Once daily By Mouth False Lasix 40 mg tablet 40 By Mouth Once daily For htn 40 09/04 Inactiv e 2023 11263 60469 1 Once daily By Mouth False Ondansetron HCl 8 mg tablet [generic] 8mg By Mouth Every 8 hours For Encephalopath y 8mg 09/02 Inactiv e 2023 58301 11955 0 Every 8 hours By Mouth False Levofloxaci n 750 mg tablet [generic] 750 mg By Mouth Once daily For UTI 750 mg 09/02 Inactiv e 2023 43729 16064 6 Once daily By Mouth False Miralax 17 gram/dose oral powder 17grams By Mouth Once daily For constipation 17grams 09/03 Inactiv e 2023 28846 73863 0 Once daily By Mouth False Sulfamethox azole 800 mg-trimetho prim 160 mg tablet [generic] 09/02 Inactiv e 2023 51677 63280 1 Sulfamethox azole 800 mg-trimetho prim 160 mg tablet [generic] 1 tab By Mouth 3 times a week on sunday, sunday, sunday For UTI 1 tab 09/02 Inactiv e 2023 94409 03152 1 3 times a week By Mouth False Sulfamethox azole 800 mg-trimetho prim 160 mg tablet [generic] 09/02 Inactiv e 2023 30055 26502 1 Sulfamethox azole 800 mg-trimetho prim 160 mg tablet [generic] 1 tab By Mouth 3 times a week on sunday, sunday, sunday For UTI 1 tab 2023 00/00 /0000 Active 2023 14248 09794 1 3 times a week By Mouth False Polyethylen e glycol 3350 17 gram/dose oral powder [generic] 17 grams By Mouth Once daily For contispation 17 grams 09/04 Inactiv e 2023 46569 56288 4 Once daily By Mouth False Posaconazol e 100 mg tablet,zaki yed release [generic] 300mg By Mouth Once daily For Antifungal 300mg 09/18 Active 2023 05383 48160 0 Once daily By Mouth False Senna 8.6 mg tablet 2 tabs By Mouth Twice daily For contispation 2 tabs 2023 Active 2023 12347 81746 1 Twice daily By Mouth False ProSource No Carb 15 gram-60 kcal/30 mL oral liquid 30 ml By Mouth Once daily For Wound - Note total ml consumed 30 ml 2023 Active 2023 94129 63864 5 Once daily By Mouth False Levofloxaci n 500 mg tablet [generic] 500 mg By Mouth Once daily For Prophylaxis 500 mg 2023 Active 2023 94382 20794 8 Once daily By Mouth False Mirtazapine 7.5 mg tablet [generic] 7.5 mg By Mouth Once daily For Depression 7.5 mg 2023 Active 2023 37692 31815 5 Once daily By Mouth False Prochlorper azine maleate 10 mg tablet [generic] 09/02 Inactiv e 2023 26045 85626 1 Prochlorper azine maleate 10 mg tablet [generic] 1 tab By Mouth Every 6 hours as needed For nausea 1 tab 09/16 Active 2023 93319 27255 1 Every 6 hours as needed By Mouth False Ondansetron HCl 8 mg tablet [generic] 09/02 Inactiv e 2023 79969 57793 0 Ondansetron HCl 8 mg tablet [generic] 8mg By Mouth Every 8 hours For Nausea 8mg 2023 Active 2023 36183 61188 0 Every 8 hours By Mouth False Lorazepam 0.5 mg tablet [generic] 09/02 Inactiv e 2023 10462 41983 1 Lorazepam 0.5 mg tablet [generic] 1 tab By Mouth At bedtime as needed For anxiety 1 tab 09/02 Inactiv e 2023 58646 37821 1 At bedtime as needed By Mouth False Loratadine 10 mg tablet [generic] 09/02 Inactiv e 2023 40817 50123 9 Loratadine 10 mg tablet [generic] 10 By Mouth Once daily As Needed For when receiving chemotherapy 10 202300 Active 2023 34815 40328 9 Once daily By Mouth False Tramadol 50 mg tablet [generic] 09/02 Inactiv e 2023 19123 69568 0 Tramadol 50 mg tablet [generic] 1 tab By Mouth Every 6 hours as needed For moderate/mynor re pain 1 tab 09/02 Inactiv e 2023 28882 88718 0 Every 6 hours as needed By Mouth False Phenazopyri dine 200 mg tablet [generic] 09/02 Inactiv e 2023 18774 20851 1 Phenazopyri dine 200 mg tablet [generic] 1 tab By Mouth Three times daily as needed For bladder pain 1 tab 202300 / Active 2023 60476 28065 1 Three times daily as needed By Mouth False Tylenol 325 mg tablet 09/02 Inactiv e 2023 24044 63540 0 Tylenol 325 mg tablet 2 tabs By Mouth Every 4 hours as needed For DO NOT EXCEED 3000 MG APAP/24 Hours For mild Pain 2 tabs 202300 /0000 Active 2023 16433 59498 0 Every 4 hours as needed By Mouth False Metformin 1,000 mg tablet [generic] 09/02 Inactiv e 2023 99135 41263 0 Metformin 1,000 mg tablet [generic] 1 tab By Mouth Twice daily with meals For DM2 1 tab 2023 Active 2023 07211 81341 0 Twice daily By Mouth False Pantoprazol e 40 mg tablet,zaki yed release [generic] 09/02 Inactiv e 2023 73332 06094 0 Pantoprazol e 40 mg tablet,zaki yed release [generic] 1 tab By Mouth Once daily For gerd 1 tab 2023 Active 2023 34160 67686 0 Once daily By Mouth False Tramadol 50 mg tablet [generic] 09/02 Inactiv e 2023 91780 90910 0 Tramadol 50 mg tablet [generic] 1 tab By Mouth Every 6 hours as needed For moderate/mynor re pain 1 tab 2023 Active 2023 68940 03616 0 Every 6 hours as needed By Mouth False Lorazepam 0.5 mg tablet [generic] 09/02 Inactiv e 2023 32035 78777 1 Lorazepam 0.5 mg tablet [generic] 1 tab By Mouth At bedtime as needed For anxiety 1 tab 2023 Active 2023 07949 69692 1 At bedtime as needed By Mouth False Polyethylen e glycol 3350 17 gram/dose oral powder [generic] 17 grams By Mouth Daily as needed PRN For order changed to PRN daily forcontispati on 17 grams 2023 Active 2023 97887 32288 4 Daily as needed By Mouth False Spironolact one 25 mg tablet [generic] 12.5 mg By Mouth Once daily For ESSENTIAL (PRIMARY) HYPERTENSION 12.5 mg 2023 Active 2023 76500 06419 1 Once daily By Mouth I10. False Furosemide 20 mg tablet [generic] 20 mg By Mouth Once daily For UNSPECIFIED SYSTOLIC (CONGESTIVE) HEART FAILURE 20 mg 2023 Active 2023 56775 59362 0 Once daily By Mouth I50.20 False Carvedilol 12.5 mg tablet [generic] 09/07 Inactiv e 2023 20786 03037 0 Carvedilol 12.5 mg tablet [generic] 12.5mg By Mouth Twice daily For CAD hold for systolic b/p less than 100 12.5mg 2023 Active 2023 01529 38823 0 Twice daily By Mouth False Losartan 25 mg tablet [generic] 09/07 Inactiv e 2023 36494 79209 9 Losartan 25 mg tablet [generic] 25mg By Mouth Once daily For HTN 25mg 2023 Active 2023 92291 02137 9 Once daily By Mouth False Unstageable [...] Active I25.10 Atherosclerotic hear t disease of [place] coronary artery without angina pectoris 08/29/2024 Active [...] Temperature SpO2 Blood Sugar Pulse Respirations 206 14802 1 64.00 mm[Hg] - Sitting 109.00 mm[Hg] - Sitting 98.70 Tympanic 90.00 % 64.00/ min 16.00/min 27430 206 49133 0 178.60 NI 36908 206 71915 6 63 NI 16497 206 11405 4 72.00 mm[Hg] - Sitting 121.00 mm[Hg] - Sitting 100.40 Forehead Scan 92.00 % 60.00/ min 18.00/min 27407 206 77381 8 72.00 mm[Hg] - Sitting 121.00 mm[Hg] - Sitting 100.40 Tympanic 22256 206 72994 9 60.00/ min 18.00/min 44693 206 50724 5 148.00 mg/dL 60717 207 55501 7 63.00 mm[Hg] - Sitting 122.00 mm[Hg] - Sitting 100.40 Tympanic 60.00/ min 18.00/min 07973 207 28884 7 55.00 mm[Hg] - Sitting 104.00 mm[Hg] - Sitting 98.40 Forehead Scan 96.00 % 66.00/ min 18.00/min 66884 207 13061 5 120.00 mg/dL 207 14166 6 101.00 mg/dL 207 42791 8 63.00 mm[Hg] - Sitting 122.00 mm[Hg] - Sitting 86825 207 39771 7 134.00 mg/dL 207 29909 9 134.00 mg/dL 13869 207 81752 0 127.00 mg/dL 21354 207 86882 7 127.00 mg/dL 207 81045 9 122.00 mg/dL 05147 208 77533 9 62.00 mm[Hg] - Sitting 106.00 mm[Hg] - Sitting 98.60 Tympanic 66.00/ min 18.00/min 01272 208 89014 3 117.00 mg/dL 67912 208 28943 2 155.00 mg/dL 11314 208 41425 6 98.60 Tympanic 11861 208 94238 1 123.00 mg/dL 12125 208 66043 2 123.00 mg/dL 64101 208 53314 4 62.00 mm[Hg] - Sitting 106.00 mm[Hg] - Sitting 30779 208 23699 7 123.00 mg/dL 49869 208 90161 1 123.00 mg/dL 18594 208 81194 7 136.00 mg/dL 21115 209 46155 0 60.00 mm[Hg] - Sitting 113.00 mm[Hg] - Sitting 98.50 Forehead Scan 98.00 % 61.00/ min 16.00/min 90811 209 33227 7 114.00 mg/dL 27126 209 68045 7 111.00 mg/dL 69722 209 04322 0 98.00 Tympanic 07354 209 27241 2 68.00 mm[Hg] - Sitting 118.00 mm[Hg] - Sitting 83616 209 03233 5 156.00 mg/dL 13101 209 64451 4 156.00 mg/dL 70890 209 93866 5 132.00 mg/dL 78976 209 14228 4 132.00 mg/dL 02110 209 45525 0 136.00 mg/dL 49814 210 75275 0 52.00 mm[Hg] - Sitting 119.00 mm[Hg] - Sitting 98.40 Forehead Scan 96.00 % 57.00/ min 18.00/min 84668 210 89780 9 107.00 mg/dL 87573 210 15168 7 108.00 mg/dL 21837 210 81041 8 97.00 Tympanic 84940 210 32285 2 126.00 mg/dL 80644 210 31457 0 126.00 mg/dL 69001 210 08978 9 126.00 mg/dL 12026 210 74191 2 154.00 mg/dL 18735 211 83735 0 53.00 mm[Hg] - Lying Down 104.00 mm[Hg] - Lying Down 98.90 Tympanic 93.00 % 60.00/ min 18.00/min 48986 211 93786 0 62.00 mm[Hg] - Sitting 72.00 mm[Hg] - Sitting 98.30 Tympanic 96.00 % 62.00/ min 18.00/min 47135 211 16275 9 136.00 mg/dL 31267 211 01918 8 131.00 mg/dL 35609 211 18840 3 118.00 mg/dL 60920 211 27222 9 130.00 mg/dL 69633 212 68858 7 46.00 mm[Hg] - Sitting 101.00 mm[Hg] - Sitting 98.50 Tympanic 96.00 % 62.00/ min 20.00/min 12742 212 68852 1 110.00 mg/dL 13181 212 26218 8 110.00 mg/dL 99420 212 89458 8 152.00 mg/dL 48410 212 13193 0 120.00 mg/dL 05039 213 93339 9 123.00 mg/dL 90906 213 28653 9 123.00 mg/dL 89762 213 29494 5 65199 213 73671 2 08172 213 72628 8 06887 213 49183 8 89155 213 60736 5 134.00 mg/dL 29714 214 87805 5 50.00 mm[Hg] - Sitting 108.00 mm[Hg] - Sitting 98.20 Tympanic 97.00 % 60.00/ min 20.00/min 23571 214 42902 0 53.00 mm[Hg] - Sitting 104.00 mm[Hg] - Sitting 97.80 Tympanic 97.00 % 61.00/ min 18.00/min 29037 214 00355 4 122.00 mg/dL 46250 214 42007 2 122.00 mg/dL 80655 214 69505 7 142.00 mg/dL 01097 214 65297 4 142.00 mg/dL 44298 214 49714 7 115.00 mg/dL 86542 214 94322 9 115.00 mg/dL 93703 214 27564 1 121.00 mg/dL 07163 215 26976 5 97.80 Forehead Scan 98.00 % 60.00/ min 18.00/min 70424 215 57387 6 46.00 mm[Hg] - Lying Down 85.00 mm[Hg] - Lying Down 81310 215 79280 5 130.00 mg/dL 60243 215 43260 8 130.00 mg/dL 55377 215 65024 5 130.00 mg/dL 215 82700 2 117.00 mg/dL 215 38417 3 138.00 mg/dL 216 55667 1 62.00 mm[Hg] - Lying Down 90.00 mm[Hg] - Lying Down 216 97775 3 94.00 mg/dL Immunizations Vaccine Date Status Influenza 08/29/2024 Completed (PCV13)Pneumococcal 08/29/2024 Completed
--- OUTSIDE RECORDS SUMMARY | 2024-09-08 22:01 | External Medical Summary | Continuity Of Care Document ---
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 unit/0.1 mL intradermal injection solution [Tuberculin PPD] 0.1mL Intradermal 1 time For PPD 2nd Step Give 2nd Step PPD Day 1 and Read results Day 3 (schedule 7 days after 1st READ) 0.1mL 09/10 Active 2023 27280 05936 0 1 time Intrad ermal False Tylenol 325 mg tablet 2 tabs By Mouth Every 4 hours as needed For Pain DO NOT EXCEED 3000 MG APAP/24 Hours 2 tabs 09/02 Inactiv e 2023 65384 73872 0 Every 4 hours as needed By Mouth False Tylenol 325 mg tablet 2 tabs By Mouth Every 4 hours as needed For Fever >100 DO NOT EXCEED 3000 MG APAP/24 Hours 2 tabs 2023 0000 /0000 Active 2023 19671 56263 0 Every 4 hours as needed By Mouth False Dulcolax (bisacodyl) 10 mg rectal suppository One Suppository per rectum PRN if Milk of Magn[place] ineffective. Give on day 5 of no BM 1 sup 2023 Active 2023 26380 74081 1 Daily as needed Rectal False Fleet Enema 19 gram-7 gram/118 mL Administer per rectum PRN one time if dulcolax suppository not effective. Give on day 6 of no BM 1 2023 Active 2023 74607 05908 6 Daily as needed Rectal False Dextrose 50 % in water (D50W) intravenous solution [generic] Dextrose 50% jose manuel 20-50 ml (slow push) Intravenous if Glucagon not effective after 15 minutes. CALL 911 for ED Evaluation. 50% jose manuel 2023 Active 2023 64301 48990 9 Intrav enous False Glucagon (HCl) Emergency Kit 1 mg solution for injection Administer Glucagon 1 mg Intramuscular if 15 minutes after GLucose Gel is administered Glucose remains less than 70 1 mg 2023 Active 2023 67697 63726 2 Intram uscula r False Glucose Gel 40 % oral gel [Dextrose] PRN If resident is unable to swallow (with or without symptoms) and Glucose results less than 70 give GLucose 40% Gel 1 tube orally - Recheck Glucose 15 minutes after administratio n. 1 tube 2023 Active 2023 80079 19148 8 By Mouth False Santyl 250 unit/gram topical ointment dose Topical Once daily to wound bed daily with wound care For Unstageable Pressure injury dose 2023 Active 2023 29488 15682 0 Once daily Topica l False Fluconazole 200 mg tablet [generic] 1 tab By Mouth Once daily For Yeast infection 1 tab 09/01 Inactiv e 2023 25620 80340 3 Once daily By Mouth False Phenazopyri dine 200 mg tablet [generic] 1 tab By Mouth Three times daily as needed For pain 1 tab 09/02 Inactiv e 2023 61133 73851 1 Three times daily as needed By Mouth False Aspirin 81 mg tablet,zaki yed release [generic] 1 tab By Mouth At bedtime For CAD 1 tab 2023 Active 2023 27245 14876 9 At bedtime By Mouth False BD AutoShield Duo Pen Needle 30 gauge x 3/16in 1 4 times a day subcutaneous 4 times a day change needle wqith every use of insulin For Type 2 diabetes Mellitus 1 2023 Active 2023 62770 04191 5 4 times a day Subcut aneous False Albuterol sulfate HFA 90 mcg/actuati on aerosol inhaler [generic] 2 puff Inhalation Every 6 hours as needed For SOB or wheezing 2 puff 2023 Active 2023 43646 37654 2 Every 6 hours as needed Inhala tion False Tramadol 50 mg tablet [generic] 1 tab By Mouth Every 6 hours as needed For pain 1 tab 09/02 Inactiv e 2023 55634 37555 0 Every 6 hours as needed By Mouth False Docusate sodium 100 mg tablet [generic] 1 tab Daily as needed For constipation 1 tab 2023 Active 2023 94880 66930 1 Daily as needed By Mouth False Senna Laxative 8.6 mg tablet 1 tab By Mouth Daily as needed For constipation 1 tab 2023 Active 2023 84318 27352 0 Daily as needed By Mouth False Potassium chloride ER 20 mEq tablet,exte nded release [generic] 1 tab By Mouth Twice daily For hypokalemia 1 tab 2023 Active 2023 77350 01260 1 Twice daily By Mouth False Acyclovir 400 mg tablet [generic] 1 tab By Mouth Twice daily For preventative B-cell lymphoma 1 tab 2023 Active 2023 99613 78283 1 Twice daily By Mouth False Pantoprazol e 40 mg tablet,zaki yed release [generic] 1 tab By Mouth Once daily For gerd 1 tab 09/02 Inactiv e 2023 07597 45139 0 Once daily By Mouth False Metformin 1,000 mg tablet [generic] 1 tab By Mouth Twice daily For DM2 1 tab 09/02 Inactiv e 2023 54507 54986 0 Twice daily By Mouth False Rosuvastati n 20 mg tablet [generic] 1 tab By Mouth At bedtime For hyperlipdemia 1 tab 2023 Active 2023 97416 28093 0 At bedtime By Mouth False Polyethylen e glycol 3350 (bulk) powder [generic] 17 g By Mouth Daily as needed For constipation 17 g 2023 Active 2023 94607 47583 1 Daily as needed By Mouth False Prochlorper azine maleate 10 mg tablet [generic] 1 tab By Mouth Every 6 hours as needed For nausea 1 tab 09/02 Inactiv e 2023 03796 83652 1 Every 6 hours as needed By Mouth False Bisacodyl 5 mg tablet,zaki yed release [generic] 1 tab By Mouth Daily as needed For constipation 1 tab 2023 Active 2023 33925 71792 1 Daily as needed By Mouth False Lorazepam 0.5 mg tablet [generic] 1 tab By Mouth At bedtime as needed For anxiety 1 tab 09/02 Inactiv e 2023 97704 73002 1 At bedtime as needed By Mouth False Insulin glargine (U-300) conc. 300 unit/mL (3 mL) subcutaneou s pen [generic] 40 units Subcutaneous At bedtime For DM2 40 units 09/02 Inactiv e 2023 34483 74435 2 At bedtime Subcut aneous False Jardiance 10 mg tablet 1 tab By Mouth Once daily For DM2 1 tab 2023 Active 2023 94136 10281 7 Once daily By Mouth False Insulin [...] time order For diabetes 2023 Active 2023 95483 40488 5 3 times a day Subcut aneous False Sulfamethox azole 800 mg-trimetho prim 160 mg tablet [generic] 1 tab By Mouth 3 times a week on sunday, sunday, sunday For UTI 1 tab 09/02 Inactiv e 2023 75439 80428 1 3 times a week By Mouth False Gemtesa 75 mg tablet 75mg By Mouth Once daily For urinary management 75mg 2023 Active 2023 30610 44296 7 Once daily By Mouth False Losartan 25 mg tablet [generic] 25mg By Mouth Once daily For HTN 25mg 2023 Active 2023 18737 95043 9 Once daily By Mouth False Ozempic 1 mg/dose (4 mg/3 mL) subcutaneou s pen injector 1mg Subcutaneous Every week For diabetes 1mg 09/04 Inactiv e 2023 59327 72342 3 Every week Subcut aneous False Carvedilol 12.5 mg tablet [generic] 12.5mg By Mouth Twice daily For CAD 12.5mg 2023 Active 2023 88818 67979 0 Twice daily By Mouth False Loratadine 10 mg tablet [generic] 10 By Mouth Once daily As Needed For CHEMO 10 09/02 Inactiv e 2023 88736 84505 9 Once daily By Mouth False Loperamide 2 mg tablet [generic] 2mg By Mouth Every 6 hours As Needed For diarrhea 2mg 2023 Active 2023 88657 17616 6 Every 6 hours By Mouth False Spironolact one 25 mg tablet [generic] 25mg By Mouth Once daily For HTN 25mg 09/04 Inactiv e 2023 61193 25093 1 Once daily By Mouth False Lasix 40 mg tablet 40 By Mouth Once daily For htn 40 09/04 Inactiv e 2023 87897 07446 1 Once daily By Mouth False Ondansetron HCl 8 mg tablet [generic] 8mg By Mouth Every 8 hours For Encephalopath y 8mg 09/02 Inactiv e 2023 52666 17117 0 Every 8 hours By Mouth False Levofloxaci n 750 mg tablet [generic] 750 mg By Mouth Once daily For UTI 750 mg 09/02 Inactiv e 2023 54406 15963 6 Once daily By Mouth False Miralax 17 gram/dose oral powder 17grams By Mouth Once daily For constipation 17grams 09/03 Inactiv e 2023 74571 33224 0 Once daily By Mouth False Sulfamethox azole 800 mg-trimetho prim 160 mg tablet [generic] 09/02 Inactiv e 2023 40595 19837 1 Sulfamethox azole 800 mg-trimetho prim 160 mg tablet [generic] 1 tab By Mouth 3 times a week on sunday, sunday, sunday For UTI 1 tab 09/02 Inactiv e 2023 82926 96730 1 3 times a week By Mouth False Sulfamethox azole 800 mg-trimetho prim 160 mg tablet [generic] 09/02 Inactiv e 2023 86446 90588 1 Sulfamethox azole 800 mg-trimetho prim 160 mg tablet [generic] 1 tab By Mouth 3 times a week on sunday, sunday, sunday For UTI 1 tab 2023 00/00 /0000 Active 2023 63298 48740 1 3 times a week By Mouth False Polyethylen e glycol 3350 17 gram/dose oral powder [generic] 17 grams By Mouth Once daily For contispation 17 grams 09/04 Inactiv e 2023 17274 67597 4 Once daily By Mouth False Posaconazol e 100 mg tablet,zaki yed release [generic] 300mg By Mouth Once daily For Antifungal 300mg 09/18 Active 2023 43603 18687 0 Once daily By Mouth False Senna 8.6 mg tablet 2 tabs By Mouth Twice daily For contispation 2 tabs 2023 Active 2023 42697 42204 1 Twice daily By Mouth False ProSource No Carb 15 gram-60 kcal/30 mL oral liquid 30 ml By Mouth Once daily For Wound - Note total ml consumed 30 ml 2023 Active 2023 43293 14656 5 Once daily By Mouth False Levofloxaci n 500 mg tablet [generic] 500 mg By Mouth Once daily For Prophylaxis 500 mg 2023 Active 2023 94309 80042 8 Once daily By Mouth False Mirtazapine 7.5 mg tablet [generic] 7.5 mg By Mouth Once daily For Depression 7.5 mg 2023 Active 2023 94305 84123 5 Once daily By Mouth False Prochlorper azine maleate 10 mg tablet [generic] 09/02 Inactiv e 2023 39994 96475 1 Prochlorper azine maleate 10 mg tablet [generic] 1 tab By Mouth Every 6 hours as needed For nausea 1 tab 09/16 Active 2023 69724 50868 1 Every 6 hours as needed By Mouth False Ondansetron HCl 8 mg tablet [generic] 09/02 Inactiv e 2023 06151 64914 0 Ondansetron HCl 8 mg tablet [generic] 8mg By Mouth Every 8 hours For Nausea 8mg 2023 Active 2023 21459 55346 0 Every 8 hours By Mouth False Lorazepam 0.5 mg tablet [generic] 09/02 Inactiv e 2023 44770 47098 1 Lorazepam 0.5 mg tablet [generic] 1 tab By Mouth At bedtime as needed For anxiety 1 tab 09/02 Inactiv e 2023 68650 25129 1 At bedtime as needed By Mouth False Loratadine 10 mg tablet [generic] 09/02 Inactiv e 2023 73323 86072 9 Loratadine 10 mg tablet [generic] 10 By Mouth Once daily As Needed For when receiving chemotherapy 10 202300 Active 2023 10300 79417 9 Once daily By Mouth False Tramadol 50 mg tablet [generic] 09/02 Inactiv e 2023 57003 91783 0 Tramadol 50 mg tablet [generic] 1 tab By Mouth Every 6 hours as needed For moderate/mynor re pain 1 tab 09/02 Inactiv e 2023 91942 18071 0 Every 6 hours as needed By Mouth False Phenazopyri dine 200 mg tablet [generic] 09/02 Inactiv e 2023 99075 79298 1 Phenazopyri dine 200 mg tablet [generic] 1 tab By Mouth Three times daily as needed For bladder pain 1 tab 202300 / Active 2023 89171 66551 1 Three times daily as needed By Mouth False Tylenol 325 mg tablet 09/02 Inactiv e 2023 31753 67715 0 Tylenol 325 mg tablet 2 tabs By Mouth Every 4 hours as needed For DO NOT EXCEED 3000 MG APAP/24 Hours For mild Pain 2 tabs 202300 /0000 Active 2023 16888 63212 0 Every 4 hours as needed By Mouth False Metformin 1,000 mg tablet [generic] 09/02 Inactiv e 2023 56166 04771 0 Metformin 1,000 mg tablet [generic] 1 tab By Mouth Twice daily with meals For DM2 1 tab 2023 Active 2023 54436 53790 0 Twice daily By Mouth False Pantoprazol e 40 mg tablet,zaki yed release [generic] 09/02 Inactiv e 2023 46152 30699 0 Pantoprazol e 40 mg tablet,zaki yed release [generic] 1 tab By Mouth Once daily For gerd 1 tab 2023 Active 2023 79354 15633 0 Once daily By Mouth False Tramadol 50 mg tablet [generic] 09/02 Inactiv e 2023 42832 12514 0 Tramadol 50 mg tablet [generic] 1 tab By Mouth Every 6 hours as needed For moderate/mynor re pain 1 tab 2023 Active 2023 58832 17873 0 Every 6 hours as needed By Mouth False Lorazepam 0.5 mg tablet [generic] 09/02 Inactiv e 2023 87963 49010 1 Lorazepam 0.5 mg tablet [generic] 1 tab By Mouth At bedtime as needed For anxiety 1 tab 2023 Active 2023 65681 48518 1 At bedtime as needed By Mouth False Polyethylen e glycol 3350 17 gram/dose oral powder [generic] 17 grams By Mouth Daily as needed PRN For order changed to PRN daily forcontispati on 17 grams 2023 Active 2023 29882 10742 4 Daily as needed By Mouth False Spironolact one 25 mg tablet [generic] 12.5 mg By Mouth Once daily For ESSENTIAL (PRIMARY) HYPERTENSION 12.5 mg 2023 Active 2023 63491 01667 1 Once daily By Mouth I10. False Furosemide 20 mg tablet [generic] 20 mg By Mouth Once daily For UNSPECIFIED SYSTOLIC (CONGESTIVE) HEART FAILURE 20 mg 2023 Active 2023 82753 01631 0 Once daily By Mouth I50.20 False Unstageable with Drainage wwound bed Topical [...] Active I25.10 Atherosclerotic hear t disease of [place] coronary artery without angina pectoris 08/29/2024 Active [...] weight Temperature SpO2 Blood Sugar Pulse Respirations 93655 206 58409 1 64.00 mm[Hg] - Sitting 109.00 mm[Hg] - Sitting 98.70 Tympanic 90.00 % 64.00/ min 16.00/min 80871 206 93746 0 178.60 NI 15298 206 61823 6 63 NI 69237 206 90911 4 72.00 mm[Hg] - Sitting 121.00 mm[Hg] - Sitting 100.40 Forehead Scan 92.00 % 60.00/ min 18.00/min 81579 206 68756 8 72.00 mm[Hg] - Sitting 121.00 mm[Hg] - Sitting 100.40 Tympanic 49878 206 32533 9 60.00/ min 18.00/min 83024 206 66924 5 148.00 mg/dL 36811 207 68994 7 63.00 mm[Hg] - Sitting 122.00 mm[Hg] - Sitting 100.40 Tympanic 60.00/ min 18.00/min 61378 207 52578 7 55.00 mm[Hg] - Sitting 104.00 mm[Hg] - Sitting 98.40 Forehead Scan 96.00 % 66.00/ min 18.00/min 30608 207 62484 5 120.00 mg/dL 90746 207 82930 6 101.00 mg/dL 77288 207 26260 8 63.00 mm[Hg] - Sitting 122.00 mm[Hg] - Sitting 45979 207 37359 7 134.00 mg/dL 78214 207 49393 9 134.00 mg/dL 30789 207 31642 0 127.00 mg/dL 97289 207 45540 7 127.00 mg/dL 12094 207 45257 9 122.00 mg/dL 05337 208 05094 9 62.00 mm[Hg] - Sitting 106.00 mm[Hg] - Sitting 98.60 Tympanic 66.00/ min 18.00/min 73858 208 43526 3 117.00 mg/dL 01037 208 26629 2 155.00 mg/dL 33521 208 69075 6 98.60 Tympanic 08576 208 24427 1 123.00 mg/dL 04501 208 34276 2 123.00 mg/dL 67126 208 26064 4 62.00 mm[Hg] - Sitting 106.00 mm[Hg] - Sitting 44551 208 18630 7 123.00 mg/dL 35667 208 34365 1 123.00 mg/dL 04794 208 40505 7 136.00 mg/dL 68659 209 14175 0 60.00 mm[Hg] - Sitting 113.00 mm[Hg] - Sitting 98.50 Forehead Scan 98.00 % 61.00/ min 16.00/min 25983 209 20821 7 114.00 mg/dL 23380 209 09177 7 111.00 mg/dL 00109 209 04314 0 98.00 Tympanic 66952 209 68315 2 68.00 mm[Hg] - Sitting 118.00 mm[Hg] - Sitting 30761 209 38277 5 156.00 mg/dL 95640 209 59500 4 156.00 mg/dL 89890 209 84322 5 132.00 mg/dL 76745 209 37349 4 132.00 mg/dL 27470 209 87567 0 136.00 mg/dL 76686 210 00152 0 52.00 mm[Hg] - Sitting 119.00 mm[Hg] - Sitting 98.40 Forehead Scan 96.00 % 57.00/ min 18.00/min 00212 210 94975 9 107.00 mg/dL 15149 210 58822 7 108.00 mg/dL 46922 210 84504 8 97.00 Tympanic 30168 210 99988 2 126.00 mg/dL 77876 210 89282 0 126.00 mg/dL 21937 210 72952 9 126.00 mg/dL 10281 210 20374 2 154.00 mg/dL 63645 211 67400 0 53.00 mm[Hg] - Lying Down 104.00 mm[Hg] - Lying Down 98.90 Tympanic 93.00 % 60.00/ min 18.00/min 55941 211 59865 0 62.00 mm[Hg] - Sitting 72.00 mm[Hg] - Sitting 98.30 Tympanic 96.00 % 62.00/ min 18.00/min 30793 211 96442 9 136.00 mg/dL 58041 211 60682 8 131.00 mg/dL 04501 211 26531 3 118.00 mg/dL 14682 211 70689 9 130.00 mg/dL 65431 212 25633 7 46.00 mm[Hg] - Sitting 101.00 mm[Hg] - Sitting 98.50 Tympanic 96.00 % 62.00/ min 20.00/min 14882 212 48361 1 110.00 mg/dL 26146 212 93214 8 110.00 mg/dL 70721 212 12525 8 152.00 mg/dL 88720 212 63732 0 120.00 mg/dL 33459 213 46142 9 123.00 mg/dL 54278 213 78518 9 123.00 mg/dL 17571 213 43828 5 66412 213 99601 2 55637 213 92391 8 85761 213 75872 8 67009 213 16224 5 134.00 mg/dL 19357 214 37669 5 50.00 mm[Hg] - Sitting 108.00 mm[Hg] - Sitting 98.20 Tympanic 97.00 % 60.00/ min 20.00/min 12340 214 63757 4 122.00 mg/dL 95320 214 22139 2 122.00 mg/dL 51426 214 05495 7 142.00 mg/dL 90667 214 28352 4 142.00 mg/dL 06738 214 08122 7 115.00 mg/dL 13414 214 20551 9 115.00 mg/dL Immunizations Vaccine Date Status Influenza 08/29/2024 Completed (PCV13)Pneumococcal 08/29/2024 Completed
--- OUTSIDE RECORDS SUMMARY | 2024-09-08 22:01 | External Medical Summary | Continuity Of Care Document ---
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 unit/0.1 mL intradermal injection solution [Tuberculin PPD] 0.1mL Intradermal 1 time For PPD 2nd Step Give 2nd Step PPD Day 1 and Read results Day 3 (schedule 7 days after 1st READ) 0.1mL 09/10 Active 2023 67719 87777 0 1 time Intrad ermal False Tylenol 325 mg tablet 2 tabs By Mouth Every 4 hours as needed For Pain DO NOT EXCEED 3000 MG APAP/24 Hours 2 tabs 09/02 Inactiv e 2023 13967 62941 0 Every 4 hours as needed By Mouth False Tylenol 325 mg tablet 2 tabs By Mouth Every 4 hours as needed For Fever >100 DO NOT EXCEED 3000 MG APAP/24 Hours 2 tabs 2023 0000 /0000 Active 2023 09634 76088 0 Every 4 hours as needed By Mouth False Dulcolax (bisacodyl) 10 mg rectal suppository One Suppository per rectum PRN if Milk of Magnisia ineffective. Give on day 5 of no BM 1 sup 2023 Active 2023 21541 00460 1 Daily as needed Rectal False Fleet Enema 19 gram-7 gram/118 mL Administer per rectum PRN one time if dulcolax suppository not effective. Give on day 6 of no BM 1 2023 Active 2023 16724 84539 6 Daily as needed Rectal False Dextrose 50 % in water (D50W) intravenous solution [generic] Dextrose 50% jose manuel 20-50 ml (slow push) Intravenous if Glucagon not effective after 15 minutes. CALL 911 for ED Evaluation. 50% jose manuel 2023 Active 2023 48249 21250 9 Intrav enous False Glucagon (HCl) Emergency Kit 1 mg solution for injection Administer Glucagon 1 mg Intramuscular if 15 minutes after GLucose Gel is administered Glucose remains less than 70 1 mg 2023 Active 2023 25368 07174 2 Intram uscula r False Glucose Gel 40 % oral gel [Dextrose] PRN If resident is unable to swallow (with or without symptoms) and Glucose results less than 70 give GLucose 40% Gel 1 tube orally - Recheck Glucose 15 minutes after administratio n. 1 tube 2023 Active 2023 03488 13686 8 By Mouth False Santyl 250 unit/gram topical ointment dose Topical Once daily to wound bed daily with wound care For Unstageable Pressure injury dose 2023 Active 2023 77167 65355 0 Once daily Topica l False Fluconazole 200 mg tablet [generic] 1 tab By Mouth Once daily For Yeast infection 1 tab 09/01 Inactiv e 2023 18834 53674 3 Once daily By Mouth False Phenazopyri dine 200 mg tablet [generic] 1 tab By Mouth Three times daily as needed For pain 1 tab 09/02 Inactiv e 2023 80786 25524 1 Three times daily as needed By Mouth False Aspirin 81 mg tablet,zaki yed release [generic] 1 tab By Mouth At bedtime For CAD 1 tab 2023 Active 2023 85559 31616 9 At bedtime By Mouth False BD AutoShield Duo Pen Needle 30 gauge x 3/16in 1 4 times a day subcutaneous 4 times a day change needle wqith every use of insulin For Type 2 diabetes Mellitus 1 2023 Active 2023 54432 37169 5 4 times a day Subcut aneous False Albuterol sulfate HFA 90 mcg/actuati on aerosol inhaler [generic] 2 puff Inhalation Every 6 hours as needed For SOB or wheezing 2 puff 2023 Active 2023 25087 36257 2 Every 6 hours as needed Inhala tion False Tramadol 50 mg tablet [generic] 1 tab By Mouth Every 6 hours as needed For pain 1 tab 09/02 Inactiv e 2023 45543 27032 0 Every 6 hours as needed By Mouth False Docusate sodium 100 mg tablet [generic] 1 tab Daily as needed For constipation 1 tab 2023 Active 2023 41964 39366 1 Daily as needed By Mouth False Senna Laxative 8.6 mg tablet 1 tab By Mouth Daily as needed For constipation 1 tab 2023 Active 2023 33974 57477 0 Daily as needed By Mouth False Potassium chloride ER 20 mEq tablet,exte nded release [generic] 1 tab By Mouth Twice daily For hypokalemia 1 tab 2023 Active 2023 61464 85373 1 Twice daily By Mouth False Acyclovir 400 mg tablet [generic] 1 tab By Mouth Twice daily For preventative B-cell lymphoma 1 tab 2023 Active 2023 19577 19768 1 Twice daily By Mouth False Pantoprazol e 40 mg tablet,zaki yed release [generic] 1 tab By Mouth Once daily For gerd 1 tab 09/02 Inactiv e 2023 76652 76127 0 Once daily By Mouth False Metformin 1,000 mg tablet [generic] 1 tab By Mouth Twice daily For DM2 1 tab 09/02 Inactiv e 2023 30479 68190 0 Twice daily By Mouth False Rosuvastati n 20 mg tablet [generic] 1 tab By Mouth At bedtime For hyperlipdemia 1 tab 2023 Active 2023 28797 55010 0 At bedtime By Mouth False Polyethylen e glycol 3350 (bulk) powder [generic] 17 g By Mouth Daily as needed For constipation 17 g 2023 Active 2023 58777 91169 1 Daily as needed By Mouth False Prochlorper azine maleate 10 mg tablet [generic] 1 tab By Mouth Every 6 hours as needed For nausea 1 tab 09/02 Inactiv e 2023 39461 14026 1 Every 6 hours as needed By Mouth False Bisacodyl 5 mg tablet,zaki yed release [generic] 1 tab By Mouth Daily as needed For constipation 1 tab 2023 Active 2023 72680 49942 1 Daily as needed By Mouth False Lorazepam 0.5 mg tablet [generic] 1 tab By Mouth At bedtime as needed For anxiety 1 tab 09/02 Inactiv e 2023 44620 44484 1 At bedtime as needed By Mouth False Insulin glargine (U-300) conc. 300 unit/mL (3 mL) subcutaneou s pen [generic] 40 units Subcutaneous At bedtime For DM2 40 units 09/02 Inactiv e 2023 79086 19772 2 At bedtime Subcut aneous False Jardiance 10 mg tablet 1 tab By Mouth Once daily For DM2 1 tab 2023 Active 2023 86180 09976 7 Once daily By Mouth False Insulin [...] time order For diabetes 2023 Active 2023 27092 62129 5 3 times a day Subcut aneous False Sulfamethox azole 800 mg-trimetho prim 160 mg tablet [generic] 1 tab By Mouth 3 times a week on sunday, sunday, sunday For UTI 1 tab 09/02 Inactiv e 2023 81953 29608 1 3 times a week By Mouth False Gemtesa 75 mg tablet 75mg By Mouth Once daily For urinary management 75mg 2023 Active 2023 40005 09350 7 Once daily By Mouth False Losartan 25 mg tablet [generic] 25mg By Mouth Once daily For HTN 25mg 2023 Active 2023 11028 51457 9 Once daily By Mouth False Ozempic 1 mg/dose (4 mg/3 mL) subcutaneou s pen injector 1mg Subcutaneous Every week For diabetes 1mg 09/04 Inactiv e 2023 13780 32989 3 Every week Subcut aneous False Carvedilol 12.5 mg tablet [generic] 12.5mg By Mouth Twice daily For CAD 12.5mg 2023 Active 2023 08033 23505 0 Twice daily By Mouth False Loratadine 10 mg tablet [generic] 10 By Mouth Once daily As Needed For CHEMO 10 09/02 Inactiv e 2023 58194 48228 9 Once daily By Mouth False Loperamide 2 mg tablet [generic] 2mg By Mouth Every 6 hours As Needed For diarrhea 2mg 2023 Active 2023 42078 74314 6 Every 6 hours By Mouth False Spironolact one 25 mg tablet [generic] 25mg By Mouth Once daily For HTN 25mg 09/04 Inactiv e 2023 83711 42468 1 Once daily By Mouth False Lasix 40 mg tablet 40 By Mouth Once daily For htn 40 09/04 Inactiv e 2023 32194 23476 1 Once daily By Mouth False Ondansetron HCl 8 mg tablet [generic] 8mg By Mouth Every 8 hours For Encephalopath y 8mg 09/02 Inactiv e 2023 13153 52274 0 Every 8 hours By Mouth False Levofloxaci n 750 mg tablet [generic] 750 mg By Mouth Once daily For UTI 750 mg 09/02 Inactiv e 2023 02493 40620 6 Once daily By Mouth False Miralax 17 gram/dose oral powder 17grams By Mouth Once daily For constipation 17grams 09/03 Inactiv e 2023 51461 19553 0 Once daily By Mouth False Sulfamethox azole 800 mg-trimetho prim 160 mg tablet [generic] 09/02 Inactiv e 2023 12033 87433 1 Sulfamethox azole 800 mg-trimetho prim 160 mg tablet [generic] 1 tab By Mouth 3 times a week on sunday, sunday, sunday For UTI 1 tab 09/02 Inactiv e 2023 02638 53129 1 3 times a week By Mouth False Sulfamethox azole 800 mg-trimetho prim 160 mg tablet [generic] 09/02 Inactiv e 2023 85732 19757 1 Sulfamethox azole 800 mg-trimetho prim 160 mg tablet [generic] 1 tab By Mouth 3 times a week on sunday, sunday, sunday For UTI 1 tab 2023 00/00 /0000 Active 2023 71679 14454 1 3 times a week By Mouth False Polyethylen e glycol 3350 17 gram/dose oral powder [generic] 17 grams By Mouth Once daily For contispation 17 grams 09/04 Inactiv e 2023 75968 67118 4 Once daily By Mouth False Posaconazol e 100 mg tablet,zaki yed release [generic] 300mg By Mouth Once daily For Antifungal 300mg 09/18 Active 2023 97659 93950 0 Once daily By Mouth False Senna 8.6 mg tablet 2 tabs By Mouth Twice daily For contispation 2 tabs 2023 Active 2023 31109 11319 1 Twice daily By Mouth False ProSource No Carb 15 gram-60 kcal/30 mL oral liquid 30 ml By Mouth Once daily For Wound - Note total ml consumed 30 ml 2023 Active 2023 76609 74385 5 Once daily By Mouth False Levofloxaci n 500 mg tablet [generic] 500 mg By Mouth Once daily For Prophylaxis 500 mg 2023 Active 2023 19411 00573 8 Once daily By Mouth False Mirtazapine 7.5 mg tablet [generic] 7.5 mg By Mouth Once daily For Depression 7.5 mg 2023 Active 2023 41629 28014 5 Once daily By Mouth False Prochlorper azine maleate 10 mg tablet [generic] 09/02 Inactiv e 2023 97905 46727 1 Prochlorper azine maleate 10 mg tablet [generic] 1 tab By Mouth Every 6 hours as needed For nausea 1 tab 09/16 Active 2023 91318 45875 1 Every 6 hours as needed By Mouth False Ondansetron HCl 8 mg tablet [generic] 09/02 Inactiv e 2023 95797 08812 0 Ondansetron HCl 8 mg tablet [generic] 8mg By Mouth Every 8 hours For Nausea 8mg 2023 Active 2023 18071 14247 0 Every 8 hours By Mouth False Lorazepam 0.5 mg tablet [generic] 09/02 Inactiv e 2023 81502 81540 1 Lorazepam 0.5 mg tablet [generic] 1 tab By Mouth At bedtime as needed For anxiety 1 tab 09/02 Inactiv e 2023 16236 57971 1 At bedtime as needed By Mouth False Loratadine 10 mg tablet [generic] 09/02 Inactiv e 2023 20006 73842 9 Loratadine 10 mg tablet [generic] 10 By Mouth Once daily As Needed For when receiving chemotherapy 10 202300 Active 2023 70453 57027 9 Once daily By Mouth False Tramadol 50 mg tablet [generic] 09/02 Inactiv e 2023 51093 21358 0 Tramadol 50 mg tablet [generic] 1 tab By Mouth Every 6 hours as needed For moderate/mynor re pain 1 tab 09/02 Inactiv e 2023 25636 40727 0 Every 6 hours as needed By Mouth False Phenazopyri dine 200 mg tablet [generic] 09/02 Inactiv e 2023 76359 96338 1 Phenazopyri dine 200 mg tablet [generic] 1 tab By Mouth Three times daily as needed For bladder pain 1 tab 202300 / Active 2023 26687 22401 1 Three times daily as needed By Mouth False Tylenol 325 mg tablet 09/02 Inactiv e 2023 56660 38674 0 Tylenol 325 mg tablet 2 tabs By Mouth Every 4 hours as needed For DO NOT EXCEED 3000 MG APAP/24 Hours For mild Pain 2 tabs 202300 /0000 Active 2023 11876 39408 0 Every 4 hours as needed By Mouth False Metformin 1,000 mg tablet [generic] 09/02 Inactiv e 2023 11816 08544 0 Metformin 1,000 mg tablet [generic] 1 tab By Mouth Twice daily with meals For DM2 1 tab 2023 Active 2023 36806 93151 0 Twice daily By Mouth False Pantoprazol e 40 mg tablet,zaki yed release [generic] 09/02 Inactiv e 2023 82745 73709 0 Pantoprazol e 40 mg tablet,zaki yed release [generic] 1 tab By Mouth Once daily For gerd 1 tab 2023 Active 2023 76481 62168 0 Once daily By Mouth False Tramadol 50 mg tablet [generic] 09/02 Inactiv e 2023 78600 36623 0 Tramadol 50 mg tablet [generic] 1 tab By Mouth Every 6 hours as needed For moderate/mynor re pain 1 tab 2023 Active 2023 83359 13699 0 Every 6 hours as needed By Mouth False Lorazepam 0.5 mg tablet [generic] 09/02 Inactiv e 2023 70633 52849 1 Lorazepam 0.5 mg tablet [generic] 1 tab By Mouth At bedtime as needed For anxiety 1 tab 2023 Active 2023 74996 53013 1 At bedtime as needed By Mouth False Polyethylen e glycol 3350 17 gram/dose oral powder [generic] 17 grams By Mouth Daily as needed PRN For order changed to PRN daily forcontispati on 17 grams 2023 Active 2023 12874 54641 4 Daily as needed By Mouth False Spironolact one 25 mg tablet [generic] 12.5 mg By Mouth Once daily For ESSENTIAL (PRIMARY) HYPERTENSION 12.5 mg 2023 Active 2023 84264 41252 1 Once daily By Mouth I10. 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 08/29/2024 Active [...] weight Temperature SpO2 Blood Sugar Pulse Respirations 03600 206 05674 1 64.00 mm[Hg] - Sitting 109.00 mm[Hg] - Sitting 98.70 Tympanic 90.00 % 64.00/ min 16.00/min 92876 206 11964 0 178.60 NI 22087 206 06084 6 63 NI 67884 206 03226 4 72.00 mm[Hg] - Sitting 121.00 mm[Hg] - Sitting 100.40 Forehead Scan 92.00 % 60.00/ min 18.00/min 05750 206 02088 8 72.00 mm[Hg] - Sitting 121.00 mm[Hg] - Sitting 100.40 Tympanic 74073 206 87301 9 60.00/ min 18.00/min 05173 206 85147 5 148.00 mg/dL 71352 207 30186 7 63.00 mm[Hg] - Sitting 122.00 mm[Hg] - Sitting 100.40 Tympanic 60.00/ min 18.00/min 49040 207 93093 7 55.00 mm[Hg] - Sitting 104.00 mm[Hg] - Sitting 98.40 Forehead Scan 96.00 % 66.00/ min 18.00/min 74566 207 06441 5 120.00 mg/dL 91924 207 38546 6 101.00 mg/dL 78538 207 52775 8 63.00 mm[Hg] - Sitting 122.00 mm[Hg] - Sitting 87113 207 36846 7 134.00 mg/dL 34938 207 74917 9 134.00 mg/dL 28814 207 04019 0 127.00 mg/dL 38729 207 51392 7 127.00 mg/dL 75484 207 27635 9 122.00 mg/dL 31526 208 16468 9 62.00 mm[Hg] - Sitting 106.00 mm[Hg] - Sitting 98.60 Tympanic 66.00/ min 18.00/min 89227 208 41655 3 117.00 mg/dL 45043 208 51692 2 155.00 mg/dL 83265 208 40956 6 98.60 Tympanic 96230 208 09562 1 123.00 mg/dL 60571 208 09806 2 123.00 mg/dL 23777 208 54514 4 62.00 mm[Hg] - Sitting 106.00 mm[Hg] - Sitting 34165 208 16452 7 123.00 mg/dL 57101 208 68874 1 123.00 mg/dL 29154 208 49556 7 136.00 mg/dL 71869 209 68444 0 60.00 mm[Hg] - Sitting 113.00 mm[Hg] - Sitting 98.50 Forehead Scan 98.00 % 61.00/ min 16.00/min 49860 209 53198 7 114.00 mg/dL 81707 209 72210 7 111.00 mg/dL 89056 209 38945 0 98.00 Tympanic 83677 209 58298 2 68.00 mm[Hg] - Sitting 118.00 mm[Hg] - Sitting 76691 209 27381 5 156.00 mg/dL 00294 209 40340 4 156.00 mg/dL 30783 209 30158 5 132.00 mg/dL 96427 209 95890 4 132.00 mg/dL 02209 209 86188 0 136.00 mg/dL 36172 210 94609 0 52.00 mm[Hg] - Sitting 119.00 mm[Hg] - Sitting 98.40 Forehead Scan 96.00 % 57.00/ min 18.00/min 36349 210 55801 9 107.00 mg/dL 14756 210 68009 7 108.00 mg/dL 07593 210 65928 8 97.00 Tympanic 19199 210 21574 2 126.00 mg/dL 77166 210 95737 0 126.00 mg/dL 30840 210 78498 9 126.00 mg/dL 14714 210 75283 2 154.00 mg/dL 25278 211 80446 0 53.00 mm[Hg] - Lying Down 104.00 mm[Hg] - Lying Down 98.90 Tympanic 93.00 % 60.00/ min 18.00/min 47976 211 30784 0 62.00 mm[Hg] - Sitting 72.00 mm[Hg] - Sitting 98.30 Tympanic 96.00 % 62.00/ min 18.00/min 61119 211 12196 9 136.00 mg/dL 18051 211 86006 8 131.00 mg/dL 18139 211 61053 3 118.00 mg/dL 68564 211 58362 9 130.00 mg/dL 37173 212 61056 7 46.00 mm[Hg] - Sitting 101.00 mm[Hg] - Sitting 98.50 Tympanic 96.00 % 62.00/ min 20.00/min 52671 212 28941 1 110.00 mg/dL 85699 212 41401 8 110.00 mg/dL 47918 212 45139 8 152.00 mg/dL 39226 212 50992 0 120.00 mg/dL 79902 213 97392 9 123.00 mg/dL 55570 213 24659 9 123.00 mg/dL 90925 213 73133 5 83391 213 43536 2 07128 213 66832 8 21745 213 34857 8 51684 213 85081 5 134.00 mg/dL Immunizations Vaccine Date Status Influenza 08/29/2024 Completed (PCV13)Pneumococcal 08/29/2024 Completed
--- OUTSIDE RECORDS SUMMARY | 2024-09-08 22:01 | External Medical Summary | Continuity Of Care Document ---
Author Name Unknown Address [address] [address] [facility] () Care Team Providers Care Cupola Melting Supervisor Name Role Phone DO Perdomo Amy Primary Care Provider [phone] Allergies Allergy Reaction Start Date End Date [...] 3 0.1 mL 09/01 Inactiv e 2023 27678 34789 0 1 time Intrad ermal False Tubersol 5 tub. unit/0.1 mL intradermal injection solution [Tuberculin PPD] 0.1mL Intradermal 1 time For PPD 2nd Step Give 2nd Step PPD Day 1 and Read results Day 3 (schedule 7 days after 1st READ) 0.1mL 09/10 Active 2023 80126 80153 0 1 time Intrad ermal False Tylenol 325 mg tablet 2 tabs By Mouth Every 4 hours as needed For Pain DO NOT EXCEED 3000 MG APAP/24 Hours 2 tabs 09/02 Inactiv e 2023 56888 22497 0 Every 4 hours as needed By Mouth False Tylenol 325 mg tablet 2 tabs By Mouth Every 4 hours as needed For Fever >100 DO NOT EXCEED 3000 MG APAP/24 Hours 2 tabs 2023 0000 /0000 Active 2023 88011 37760 0 Every 4 hours as needed By Mouth False Dulcolax (bisacodyl) 10 mg rectal suppository One Suppository per rectum PRN if Milk of Magnisia ineffective. Give on day 5 of no BM 1 sup 2023 Active 2023 42785 10229 1 Daily as needed Rectal False Fleet Enema 19 gram-7 gram/118 mL Administer per rectum PRN one time if dulcolax suppository not effective. Give on day 6 of no BM 1 2023 Active 2023 09867 58866 6 Daily as needed Rectal False Dextrose 50 % in water (D50W) intravenous solution [generic] Dextrose 50% jose manuel 20-50 ml (slow push) Intravenous if Glucagon not effective after 15 minutes. CALL 911 for ED Evaluation. 50% jose manuel 2023 Active 2023 80797 48244 9 Intrav enous False Glucagon (HCl) Emergency Kit 1 mg solution for injection Administer Glucagon 1 mg Intramuscular if 15 minutes after GLucose Gel is administered Glucose remains less than 70 1 mg 2023 Active 2023 35711 79837 2 Intram uscula r False Glucose Gel 40 % oral gel [Dextrose] PRN If resident is unable to swallow (with or without symptoms) and Glucose results less than 70 give GLucose 40% Gel 1 tube orally - Recheck Glucose 15 minutes after administratio n. 1 tube 2023 Active 2023 35318 51020 8 By Mouth False Santyl 250 unit/gram topical ointment dose Topical Once daily to wound bed daily with wound care For Unstageable Pressure injury dose 2023 Active 2023 83421 22691 0 Once daily Topica l False Fluconazole 200 mg tablet [generic] 1 tab By Mouth Once daily For Yeast infection 1 tab 09/01 Inactiv e 2023 16909 12495 3 Once daily By Mouth False Phenazopyri dine 200 mg tablet [generic] 1 tab By Mouth Three times daily as needed For pain 1 tab 09/02 Inactiv e 2023 35981 36354 1 Three times daily as needed By Mouth False Aspirin 81 mg tablet,zaki yed release [generic] 1 tab By Mouth At bedtime For CAD 1 tab 2023 Active 2023 10118 24289 9 At bedtime By Mouth False BD AutoShield Duo Pen Needle 30 gauge x 3/16in 1 4 times a day subcutaneous 4 times a day change needle wqith every use of insulin For Type 2 diabetes Mellitus 1 2023 Active 2023 27947 90675 5 4 times a day Subcut aneous False Albuterol sulfate HFA 90 mcg/actuati on aerosol inhaler [generic] 2 puff Inhalation Every 6 hours as needed For SOB or wheezing 2 puff 2023 Active 2023 55559 95233 2 Every 6 hours as needed Inhala tion False Tramadol 50 mg tablet [generic] 1 tab By Mouth Every 6 hours as needed For pain 1 tab 09/02 Inactiv e 2023 35489 20899 0 Every 6 hours as needed By Mouth False Docusate sodium 100 mg tablet [generic] 1 tab Daily as needed For constipation 1 tab 2023 Active 2023 07820 15916 1 Daily as needed By Mouth False Senna Laxative 8.6 mg tablet 1 tab By Mouth Daily as needed For constipation 1 tab 2023 Active 2023 32749 93131 0 Daily as needed By Mouth False Potassium chloride ER 20 mEq tablet,exte nded release [generic] 1 tab By Mouth Twice daily For hypokalemia 1 tab 2023 Active 2023 11771 81308 1 Twice daily By Mouth False Acyclovir 400 mg tablet [generic] 1 tab By Mouth Twice daily For preventative B-cell lymphoma 1 tab 2023 Active 2023 92727 95337 1 Twice daily By Mouth False Pantoprazol e 40 mg tablet,zaki yed release [generic] 1 tab By Mouth Once daily For gerd 1 tab 09/02 Inactiv e 2023 12589 90176 0 Once daily By Mouth False Metformin 1,000 mg tablet [generic] 1 tab By Mouth Twice daily For DM2 1 tab 09/02 Inactiv e 2023 52693 92434 0 Twice daily By Mouth False Rosuvastati n 20 mg tablet [generic] 1 tab By Mouth At bedtime For hyperlipdemia 1 tab 2023 Active 2023 95704 59649 0 At bedtime By Mouth False Polyethylen e glycol 3350 (bulk) powder [generic] 17 g By Mouth Daily as needed For constipation 17 g 2023 Active 2023 60992 93602 1 Daily as needed By Mouth False Prochlorper azine maleate 10 mg tablet [generic] 1 tab By Mouth Every 6 hours as needed For nausea 1 tab 09/02 Inactiv e 2023 29066 47322 1 Every 6 hours as needed By Mouth False Bisacodyl 5 mg tablet,zaki yed release [generic] 1 tab By Mouth Daily as needed For constipation 1 tab 2023 Active 2023 73834 91067 1 Daily as needed By Mouth False Lorazepam 0.5 mg tablet [generic] 1 tab By Mouth At bedtime as needed For anxiety 1 tab 09/02 Inactiv e 2023 00500 89566 1 At bedtime as needed By Mouth False Insulin glargine (U-300) conc. 300 unit/mL (3 mL) subcutaneou s pen [generic] 40 units Subcutaneous At bedtime For DM2 40 units 09/02 Inactiv e 2023 49188 68461 2 At bedtime Subcut aneous False Jardiance 10 mg tablet 1 tab By Mouth Once daily For DM2 1 tab 2023 Active 2023 89884 49075 7 Once daily By Mouth False Insulin [...] time order For diabetes 2023 Active 2023 57222 10751 5 3 times a day Subcut aneous False Sulfamethox azole 800 mg-trimetho prim 160 mg tablet [generic] 1 tab By Mouth 3 times a week on sunday, sunday, sunday For UTI 1 tab 09/02 Inactiv e 2023 75224 41019 1 3 times a week By Mouth False Gemtesa 75 mg tablet 75mg By Mouth Once daily For urinary management 75mg 2023 Active 2023 01282 08803 7 Once daily By Mouth False Losartan 25 mg tablet [generic] 25mg By Mouth Once daily For HTN 25mg 2023 Active 2023 52448 59884 9 Once daily By Mouth False Ozempic 1 mg/dose (4 mg/3 mL) subcutaneou s pen injector 1mg Subcutaneous Every week For diabetes 1mg 09/04 Inactiv e 2023 36238 66737 3 Every week Subcut aneous False Carvedilol 12.5 mg tablet [generic] 12.5mg By Mouth Twice daily For CAD 12.5mg 2023 Active 2023 73109 58793 0 Twice daily By Mouth False Loratadine 10 mg tablet [generic] 10 By Mouth Once daily As Needed For CHEMO 10 09/02 Inactiv e 2023 72352 18886 9 Once daily By Mouth False Loperamide 2 mg tablet [generic] 2mg By Mouth Every 6 hours As Needed For diarrhea 2mg 2023 Active 2023 23774 40731 6 Every 6 hours By Mouth False Spironolact one 25 mg tablet [generic] 25mg By Mouth Once daily For HTN 25mg 09/04 Inactiv e 2023 05604 34185 1 Once daily By Mouth False Lasix 40 mg tablet 40 By Mouth Once daily For htn 40 09/04 Inactiv e 2023 57254 74016 1 Once daily By Mouth False Ondansetron HCl 8 mg tablet [generic] 8mg By Mouth Every 8 hours For Encephalopath y 8mg 09/02 Inactiv e 2023 35962 93360 0 Every 8 hours By Mouth False Levofloxaci n 750 mg tablet [generic] 750 mg By Mouth Once daily For UTI 750 mg 09/02 Inactiv e 2023 72536 27585 6 Once daily By Mouth False Miralax 17 gram/dose oral powder 17grams By Mouth Once daily For constipation 17grams 09/03 Inactiv e 2023 03784 49898 0 Once daily By Mouth False Sulfamethox azole 800 mg-trimetho prim 160 mg tablet [generic] 09/02 Inactiv e 2023 32883 52144 1 Sulfamethox azole 800 mg-trimetho prim 160 mg tablet [generic] 1 tab By Mouth 3 times a week on sunday, sunday, sunday For UTI 1 tab 09/02 Inactiv e 2023 74113 81898 1 3 times a week By Mouth False Sulfamethox azole 800 mg-trimetho prim 160 mg tablet [generic] 09/02 Inactiv e 2023 75378 96919 1 Sulfamethox azole 800 mg-trimetho prim 160 mg tablet [generic] 1 tab By Mouth 3 times a week on sunday, sunday, sunday For UTI 1 tab 2023 00/00 /0000 Active 2023 68042 44562 1 3 times a week By Mouth False Polyethylen e glycol 3350 17 gram/dose oral powder [generic] 17 grams By Mouth Once daily For contispation 17 grams 09/04 Inactiv e 2023 73567 40124 4 Once daily By Mouth False Posaconazol e 100 mg tablet,zaki yed release [generic] 300mg By Mouth Once daily For Antifungal 300mg 09/18 Active 2023 81756 97608 0 Once daily By Mouth False Senna 8.6 mg tablet 2 tabs By Mouth Twice daily For contispation 2 tabs 2023 Active 2023 27370 39261 1 Twice daily By Mouth False ProSource No Carb 15 gram-60 kcal/30 mL oral liquid 30 ml By Mouth Once daily For Wound - Note total ml consumed 30 ml 2023 Active 2023 19664 37314 5 Once daily By Mouth False Levofloxaci n 500 mg tablet [generic] 500 mg By Mouth Once daily For Prophylaxis 500 mg 2023 Active 2023 60865 42623 8 Once daily By Mouth False Mirtazapine 7.5 mg tablet [generic] 7.5 mg By Mouth Once daily For Depression 7.5 mg 2023 Active 2023 41786 92252 5 Once daily By Mouth False Prochlorper azine maleate 10 mg tablet [generic] 09/02 Inactiv e 2023 64260 82094 1 Prochlorper azine maleate 10 mg tablet [generic] 1 tab By Mouth Every 6 hours as needed For nausea 1 tab 09/16 Active 2023 57972 95041 1 Every 6 hours as needed By Mouth False Ondansetron HCl 8 mg tablet [generic] 09/02 Inactiv e 2023 62629 30931 0 Ondansetron HCl 8 mg tablet [generic] 8mg By Mouth Every 8 hours For Nausea 8mg 2023 Active 2023 26828 84846 0 Every 8 hours By Mouth False Lorazepam 0.5 mg tablet [generic] 09/02 Inactiv e 2023 95477 87419 1 Lorazepam 0.5 mg tablet [generic] 1 tab By Mouth At bedtime as needed For anxiety 1 tab 09/02 Inactiv e 2023 27694 69679 1 At bedtime as needed By Mouth False Loratadine 10 mg tablet [generic] 09/02 Inactiv e 2023 56774 26149 9 Loratadine 10 mg tablet [generic] 10 By Mouth Once daily As Needed For when receiving chemotherapy 10 202300 Active 2023 04822 20003 9 Once daily By Mouth False Tramadol 50 mg tablet [generic] 09/02 Inactiv e 2023 25190 22192 0 Tramadol 50 mg tablet [generic] 1 tab By Mouth Every 6 hours as needed For moderate/mynor re pain 1 tab 09/02 Inactiv e 2023 90685 52966 0 Every 6 hours as needed By Mouth False Phenazopyri dine 200 mg tablet [generic] 09/02 Inactiv e 2023 14795 82542 1 Phenazopyri dine 200 mg tablet [generic] 1 tab By Mouth Three times daily as needed For bladder pain 1 tab 202300 / Active 2023 29575 71724 1 Three times daily as needed By Mouth False Tylenol 325 mg tablet 09/02 Inactiv e 2023 68370 91447 0 Tylenol 325 mg tablet 2 tabs By Mouth Every 4 hours as needed For DO NOT EXCEED 3000 MG APAP/24 Hours For mild Pain 2 tabs 202300 /0000 Active 2023 40597 25543 0 Every 4 hours as needed By Mouth False Metformin 1,000 mg tablet [generic] 09/02 Inactiv e 2023 30846 82315 0 Metformin 1,000 mg tablet [generic] 1 tab By Mouth Twice daily with meals For DM2 1 tab 2023 Active 2023 93171 95238 0 Twice daily By Mouth False Pantoprazol e 40 mg tablet,zaki yed release [generic] 09/02 Inactiv e 2023 00648 13486 0 Pantoprazol e 40 mg tablet,zaki yed release [generic] 1 tab By Mouth Once daily For gerd 1 tab 2023 Active 2023 67645 41768 0 Once daily By Mouth False Tramadol 50 mg tablet [generic] 09/02 Inactiv e 2023 41777 23764 0 Tramadol 50 mg tablet [generic] 1 tab By Mouth Every 6 hours as needed For moderate/mynor re pain 1 tab 2023 Active 2023 40846 72102 0 Every 6 hours as needed By Mouth False Lorazepam 0.5 mg tablet [generic] 09/02 Inactiv e 2023 58007 66555 1 Lorazepam 0.5 mg tablet [generic] 1 tab By Mouth At bedtime as needed For anxiety 1 tab 2023 Active 2023 01493 90606 1 At bedtime as needed By Mouth False Polyethylen e glycol 3350 17 gram/dose oral powder [generic] 17 grams By Mouth Daily as needed PRN For order changed to PRN daily forcontispati on 17 grams 2023 Active 2023 29123 55077 4 Daily as needed By Mouth False Spironolact one 25 mg tablet [generic] 12.5 mg By Mouth Once daily For ESSENTIAL (PRIMARY) HYPERTENSION 12.5 mg 2023 Active 2023 51676 37140 1 Once daily By Mouth I10. False Furosemide 20 mg tablet [generic] 20 mg By Mouth Once daily For UNSPECIFIED SYSTOLIC (CONGESTIVE) HEART FAILURE 20 mg 2023 Active 2023 10742 73354 0 Once daily By Mouth I50.20 False [...] Active I25.10 Atherosclerotic hear t disease of [place] coronary artery without angina pectoris 08/29/2024 Active [...] weight Temperature SpO2 Blood Sugar Pulse Respirations 66431 206 58936 1 64.00 mm[Hg] - Sitting 109.00 mm[Hg] - Sitting 98.70 Tympanic 90.00 % 64.00/ min 16.00/min 69759 206 30703 0 178.60 NI 59780 206 66344 6 63 NI 38662 206 13560 4 72.00 mm[Hg] - Sitting 121.00 mm[Hg] - Sitting 100.40 Forehead Scan 92.00 % 60.00/ min 18.00/min 34681 206 25269 8 72.00 mm[Hg] - Sitting 121.00 mm[Hg] - Sitting 100.40 Tympanic 81882 206 87975 9 60.00/ min 18.00/min 38271 206 19944 5 148.00 mg/dL 67787 207 88710 7 63.00 mm[Hg] - Sitting 122.00 mm[Hg] - Sitting 100.40 Tympanic 60.00/ min 18.00/min 93316 207 18137 7 55.00 mm[Hg] - Sitting 104.00 mm[Hg] - Sitting 98.40 Forehead Scan 96.00 % 66.00/ min 18.00/min 10254 207 39920 5 120.00 mg/dL 92241 207 37332 6 101.00 mg/dL 02362 207 86384 8 63.00 mm[Hg] - Sitting 122.00 mm[Hg] - Sitting 33336 207 52188 7 134.00 mg/dL 10381 207 93204 9 134.00 mg/dL 78405 207 47748 0 127.00 mg/dL 28994 207 56521 7 127.00 mg/dL 31551 207 41698 9 122.00 mg/dL 09987 208 79618 9 62.00 mm[Hg] - Sitting 106.00 mm[Hg] - Sitting 98.60 Tympanic 66.00/ min 18.00/min 36639 208 52780 3 117.00 mg/dL 25152 208 63423 2 155.00 mg/dL 23105 208 75331 6 98.60 Tympanic 62605 208 23876 1 123.00 mg/dL 94746 208 32359 2 123.00 mg/dL 00411 208 35859 4 62.00 mm[Hg] - Sitting 106.00 mm[Hg] - Sitting 23833 208 96260 7 123.00 mg/dL 98560 208 56335 1 123.00 mg/dL 12672 208 59187 7 136.00 mg/dL 53961 209 72881 0 60.00 mm[Hg] - Sitting 113.00 mm[Hg] - Sitting 98.50 Forehead Scan 98.00 % 61.00/ min 16.00/min 14792 209 02444 7 114.00 mg/dL 38043 209 92554 7 111.00 mg/dL 18263 209 21057 0 98.00 Tympanic 06392 209 04501 2 68.00 mm[Hg] - Sitting 118.00 mm[Hg] - Sitting 32719 209 21473 5 156.00 mg/dL 94498 209 84253 4 156.00 mg/dL 05059 209 35137 5 132.00 mg/dL 51737 209 76796 4 132.00 mg/dL 29543 209 63812 0 136.00 mg/dL 42608 210 10743 0 52.00 mm[Hg] - Sitting 119.00 mm[Hg] - Sitting 98.40 Forehead Scan 96.00 % 57.00/ min 18.00/min 51677 210 07132 9 107.00 mg/dL 55095 210 39892 7 108.00 mg/dL 47576 210 97181 8 97.00 Tympanic 40767 210 99921 2 126.00 mg/dL 45493 210 18200 0 126.00 mg/dL 38561 210 60239 9 126.00 mg/dL 83954 210 71804 2 154.00 mg/dL 36668 211 77495 0 53.00 mm[Hg] - Lying Down 104.00 mm[Hg] - Lying Down 98.90 Tympanic 93.00 % 60.00/ min 18.00/min 40610 211 41782 0 62.00 mm[Hg] - Sitting 72.00 mm[Hg] - Sitting 98.30 Tympanic 96.00 % 62.00/ min 18.00/min 37887 211 94776 9 136.00 mg/dL 89274 211 92534 8 131.00 mg/dL 96162 211 71478 3 118.00 mg/dL 62439 211 15332 9 130.00 mg/dL 71312 212 26090 7 46.00 mm[Hg] - Sitting 101.00 mm[Hg] - Sitting 98.50 Tympanic 96.00 % 62.00/ min 20.00/min 52137 212 50354 1 110.00 mg/dL 50391 212 03366 8 110.00 mg/dL 15297 212 95941 8 152.00 mg/dL 05761 212 96623 0 120.00 mg/dL 22304 213 54747 9 123.00 mg/dL 81106 213 94009 9 123.00 mg/dL 15524 213 75491 5 31912 213 22331 2 58438 213 30899 8 48007 213 92432 8 54891 213 63241 5 134.00 mg/dL 20402 214 47538 5 50.00 mm[Hg] - Sitting 108.00 mm[Hg] - Sitting 98.20 Tympanic 97.00 % 60.00/ min 20.00/min 41392 214 25169 4 122.00 mg/dL 04209 214 83684 2 122.00 mg/dL 78092 214 27172 7 142.00 mg/dL 07488 214 40599 4 142.00 mg/dL 60442 214 27103 7 115.00 mg/dL 09840 214 10659 9 115.00 mg/dL 65079 214 71593 1 121.00 mg/dL Immunizations Vaccine Date Status Influenza 08/29/2024 Completed (PCV13)Pneumococcal 08/29/2024 Completed
--- OUTSIDE RECORDS SUMMARY | 2024-09-08 22:01 | External Medical Summary | Continuity Of Care Document ---
Author Name Unknown Address [address] [address] Organization [facility] Ariadne () Care Team Providers Care Sales Lead Name Role Phone DO Perdomo Amy Primary Care Provider [phone] Allergies Allergy Reaction Start Date End Date [...] 3 0.1 mL 09/01 Inactiv e 2023 16278 55926 0 1 time Intrad ermal False Tubersol 5 tub. unit/0.1 mL intradermal injection solution [Tuberculin PPD] 0.1mL Intradermal 1 time For PPD 2nd Step Give 2nd Step PPD Day 1 and Read results Day 3 (schedule 7 days after 1st READ) 0.1mL 09/10 Active 2023 76665 34510 0 1 time Intrad ermal False Tylenol 325 mg tablet 2 tabs By Mouth Every 4 hours as needed For Pain DO NOT EXCEED 3000 MG APAP/24 Hours 2 tabs 09/02 Inactiv e 2023 28403 17260 0 Every 4 hours as needed By Mouth False Tylenol 325 mg tablet 2 tabs By Mouth Every 4 hours as needed For Fever >100 DO NOT EXCEED 3000 MG APAP/24 Hours 2 tabs 2023 0000 /0000 Active 2023 03119 85922 0 Every 4 hours as needed By Mouth False Dulcolax (bisacodyl) 10 mg rectal suppository One Suppository per rectum PRN if Milk of Magnisia ineffective. Give on day 5 of no BM 1 sup 2023 Active 2023 06466 54772 1 Daily as needed Rectal False Fleet Enema 19 gram-7 gram/118 mL Administer per rectum PRN one time if dulcolax suppository not effective. Give on day 6 of no BM 1 2023 Active 2023 78044 53450 6 Daily as needed Rectal False Dextrose 50 % in water (D50W) intravenous solution [generic] Dextrose 50% jose manuel 20-50 ml (slow push) Intravenous if Glucagon not effective after 15 minutes. CALL 911 for ED Evaluation. 50% jose manuel 2023 Active 2023 98966 52596 9 Intrav enous False Glucagon (HCl) Emergency Kit 1 mg solution for injection Administer Glucagon 1 mg Intramuscular if 15 minutes after GLucose Gel is administered Glucose remains less than 70 1 mg 2023 Active 2023 76273 60698 2 Intram uscula r False Glucose Gel 40 % oral gel [Dextrose] PRN If resident is unable to swallow (with or without symptoms) and Glucose results less than 70 give GLucose 40% Gel 1 tube orally - Recheck Glucose 15 minutes after administratio n. 1 tube 2023 Active 2023 84693 38807 8 By Mouth False Santyl 250 unit/gram topical ointment dose Topical Once daily to wound bed daily with wound care For Unstageable Pressure injury dose 2023 Active 2023 81149 56220 0 Once daily Topica l False Fluconazole 200 mg tablet [generic] 1 tab By Mouth Once daily For Yeast infection 1 tab 09/01 Inactiv e 2023 73080 72637 3 Once daily By Mouth False Phenazopyri dine 200 mg tablet [generic] 1 tab By Mouth Three times daily as needed For pain 1 tab 09/02 Inactiv e 2023 92046 92355 1 Three times daily as needed By Mouth False Aspirin 81 mg tablet,zaki yed release [generic] 1 tab By Mouth At bedtime For CAD 1 tab 2023 Active 2023 41840 62707 9 At bedtime By Mouth False BD AutoShield Duo Pen Needle 30 gauge x 3/16in 1 4 times a day subcutaneous 4 times a day change needle wqith every use of insulin For Type 2 diabetes Mellitus 1 2023 Active 2023 39785 91030 5 4 times a day Subcut aneous False Albuterol sulfate HFA 90 mcg/actuati on aerosol inhaler [generic] 2 puff Inhalation Every 6 hours as needed For SOB or wheezing 2 puff 2023 Active 2023 54203 58908 2 Every 6 hours as needed Inhala tion False Tramadol 50 mg tablet [generic] 1 tab By Mouth Every 6 hours as needed For pain 1 tab 09/02 Inactiv e 2023 87935 30884 0 Every 6 hours as needed By Mouth False Docusate sodium 100 mg tablet [generic] 1 tab Daily as needed For constipation 1 tab 2023 Active 2023 52524 81936 1 Daily as needed By Mouth False Senna Laxative 8.6 mg tablet 1 tab By Mouth Daily as needed For constipation 1 tab 2023 Active 2023 53694 94756 0 Daily as needed By Mouth False Potassium chloride ER 20 mEq tablet,exte nded release [generic] 1 tab By Mouth Twice daily For hypokalemia 1 tab 2023 Active 2023 15180 14388 1 Twice daily By Mouth False Acyclovir 400 mg tablet [generic] 1 tab By Mouth Twice daily For preventative B-cell lymphoma 1 tab 2023 Active 2023 70201 92934 1 Twice daily By Mouth False Pantoprazol e 40 mg tablet,zaki yed release [generic] 1 tab By Mouth Once daily For gerd 1 tab 09/02 Inactiv e 2023 34515 29578 0 Once daily By Mouth False Metformin 1,000 mg tablet [generic] 1 tab By Mouth Twice daily For DM2 1 tab 09/02 Inactiv e 2023 55254 89760 0 Twice daily By Mouth False Rosuvastati n 20 mg tablet [generic] 1 tab By Mouth At bedtime For hyperlipdemia 1 tab 2023 Active 2023 12483 89616 0 At bedtime By Mouth False Polyethylen e glycol 3350 (bulk) powder [generic] 17 g By Mouth Daily as needed For constipation 17 g 2023 Active 2023 91253 09122 1 Daily as needed By Mouth False Prochlorper azine maleate 10 mg tablet [generic] 1 tab By Mouth Every 6 hours as needed For nausea 1 tab 09/02 Inactiv e 2023 52698 04959 1 Every 6 hours as needed By Mouth False Bisacodyl 5 mg tablet,zaki yed release [generic] 1 tab By Mouth Daily as needed For constipation 1 tab 2023 Active 2023 61876 36630 1 Daily as needed By Mouth False Lorazepam 0.5 mg tablet [generic] 1 tab By Mouth At bedtime as needed For anxiety 1 tab 09/02 Inactiv e 2023 53258 61219 1 At bedtime as needed By Mouth False Insulin glargine (U-300) conc. 300 unit/mL (3 mL) subcutaneou s pen [generic] 40 units Subcutaneous At bedtime For DM2 40 units 09/02 Inactiv e 2023 90080 61581 2 At bedtime Subcut aneous False Jardiance 10 mg tablet 1 tab By Mouth Once daily For DM2 1 tab 2023 Active 2023 19630 56917 7 Once daily By Mouth False Insulin [...] time order For diabetes 2023 Active 2023 29077 56584 5 3 times a day Subcut aneous False Sulfamethox azole 800 mg-trimetho prim 160 mg tablet [generic] 1 tab By Mouth 3 times a week on sunday, sunday, sunday For UTI 1 tab 09/02 Inactiv e 2023 10729 18885 1 3 times a week By Mouth False Gemtesa 75 mg tablet 75mg By Mouth Once daily For urinary management 75mg 2023 Active 2023 83733 25669 7 Once daily By Mouth False Losartan 25 mg tablet [generic] 25mg By Mouth Once daily For HTN 25mg 2023 Active 2023 86152 13534 9 Once daily By Mouth False Ozempic 1 mg/dose (4 mg/3 mL) subcutaneou s pen injector 1mg Subcutaneous Every week For diabetes 1mg 09/04 Inactiv e 2023 08620 87939 3 Every week Subcut aneous False Carvedilol 12.5 mg tablet [generic] 12.5mg By Mouth Twice daily For CAD 12.5mg 2023 Active 2023 67340 49361 0 Twice daily By Mouth False Loratadine 10 mg tablet [generic] 10 By Mouth Once daily As Needed For CHEMO 10 09/02 Inactiv e 2023 68526 21011 9 Once daily By Mouth False Loperamide 2 mg tablet [generic] 2mg By Mouth Every 6 hours As Needed For diarrhea 2mg 2023 Active 2023 90221 17357 6 Every 6 hours By Mouth False Spironolact one 25 mg tablet [generic] 25mg By Mouth Once daily For HTN 25mg 09/04 Inactiv e 2023 33087 04603 1 Once daily By Mouth False Lasix 40 mg tablet 40 By Mouth Once daily For htn 40 09/04 Inactiv e 2023 62257 33124 1 Once daily By Mouth False Ondansetron HCl 8 mg tablet [generic] 8mg By Mouth Every 8 hours For Encephalopath y 8mg 09/02 Inactiv e 2023 10149 34675 0 Every 8 hours By Mouth False Levofloxaci n 750 mg tablet [generic] 750 mg By Mouth Once daily For UTI 750 mg 09/02 Inactiv e 2023 05513 24675 6 Once daily By Mouth False Miralax 17 gram/dose oral powder 17grams By Mouth Once daily For constipation 17grams 09/03 Inactiv e 2023 90222 64976 0 Once daily By Mouth False Sulfamethox azole 800 mg-trimetho prim 160 mg tablet [generic] 09/02 Inactiv e 2023 21672 31071 1 Sulfamethox azole 800 mg-trimetho prim 160 mg tablet [generic] 1 tab By Mouth 3 times a week on sunday, sunday, sunday For UTI 1 tab 09/02 Inactiv e 2023 46459 98682 1 3 times a week By Mouth False Sulfamethox azole 800 mg-trimetho prim 160 mg tablet [generic] 09/02 Inactiv e 2023 11106 02526 1 Sulfamethox azole 800 mg-trimetho prim 160 mg tablet [generic] 1 tab By Mouth 3 times a week on sunday, sunday, sunday For UTI 1 tab 2023 00/00 /0000 Active 2023 23494 97726 1 3 times a week By Mouth False Polyethylen e glycol 3350 17 gram/dose oral powder [generic] 17 grams By Mouth Once daily For contispation 17 grams 09/04 Inactiv e 2023 49746 69786 4 Once daily By Mouth False Posaconazol e 100 mg tablet,zaki yed release [generic] 300mg By Mouth Once daily For Antifungal 300mg 09/18 Active 2023 62477 76311 0 Once daily By Mouth False Senna 8.6 mg tablet 2 tabs By Mouth Twice daily For contispation 2 tabs 2023 Active 2023 47693 90772 1 Twice daily By Mouth False ProSource No Carb 15 gram-60 kcal/30 mL oral liquid 30 ml By Mouth Once daily For Wound - Note total ml consumed 30 ml 2023 Active 2023 27966 44974 5 Once daily By Mouth False Levofloxaci n 500 mg tablet [generic] 500 mg By Mouth Once daily For Prophylaxis 500 mg 2023 Active 2023 30657 31665 8 Once daily By Mouth False Mirtazapine 7.5 mg tablet [generic] 7.5 mg By Mouth Once daily For Depression 7.5 mg 2023 Active 2023 16645 19994 5 Once daily By Mouth False Prochlorper azine maleate 10 mg tablet [generic] 09/02 Inactiv e 2023 38194 04988 1 Prochlorper azine maleate 10 mg tablet [generic] 1 tab By Mouth Every 6 hours as needed For nausea 1 tab 09/16 Active 2023 85327 01255 1 Every 6 hours as needed By Mouth False Ondansetron HCl 8 mg tablet [generic] 09/02 Inactiv e 2023 88214 88046 0 Ondansetron HCl 8 mg tablet [generic] 8mg By Mouth Every 8 hours For Nausea 8mg 2023 Active 2023 97785 62487 0 Every 8 hours By Mouth False Lorazepam 0.5 mg tablet [generic] 09/02 Inactiv e 2023 79292 22726 1 Lorazepam 0.5 mg tablet [generic] 1 tab By Mouth At bedtime as needed For anxiety 1 tab 09/02 Inactiv e 2023 26782 89672 1 At bedtime as needed By Mouth False Loratadine 10 mg tablet [generic] 09/02 Inactiv e 2023 45179 02163 9 Loratadine 10 mg tablet [generic] 10 By Mouth Once daily As Needed For when receiving chemotherapy 10 202300 Active 2023 68223 97427 9 Once daily By Mouth False Tramadol 50 mg tablet [generic] 09/02 Inactiv e 2023 11915 04919 0 Tramadol 50 mg tablet [generic] 1 tab By Mouth Every 6 hours as needed For moderate/mynor re pain 1 tab 09/02 Inactiv e 2023 64156 86045 0 Every 6 hours as needed By Mouth False Phenazopyri dine 200 mg tablet [generic] 09/02 Inactiv e 2023 37345 91742 1 Phenazopyri dine 200 mg tablet [generic] 1 tab By Mouth Three times daily as needed For bladder pain 1 tab 202300 / Active 2023 77581 74395 1 Three times daily as needed By Mouth False Tylenol 325 mg tablet 09/02 Inactiv e 2023 35403 57718 0 Tylenol 325 mg tablet 2 tabs By Mouth Every 4 hours as needed For DO NOT EXCEED 3000 MG APAP/24 Hours For mild Pain 2 tabs 202300 /0000 Active 2023 63950 68914 0 Every 4 hours as needed By Mouth False Metformin 1,000 mg tablet [generic] 09/02 Inactiv e 2023 21981 76104 0 Metformin 1,000 mg tablet [generic] 1 tab By Mouth Twice daily with meals For DM2 1 tab 2023 Active 2023 61641 44277 0 Twice daily By Mouth False Pantoprazol e 40 mg tablet,zaki yed release [generic] 09/02 Inactiv e 2023 43202 62582 0 Pantoprazol e 40 mg tablet,zaki yed release [generic] 1 tab By Mouth Once daily For gerd 1 tab 2023 Active 2023 34075 84778 0 Once daily By Mouth False Tramadol 50 mg tablet [generic] 09/02 Inactiv e 2023 76812 79047 0 Tramadol 50 mg tablet [generic] 1 tab By Mouth Every 6 hours as needed For moderate/mynor re pain 1 tab 2023 Active 2023 13810 32976 0 Every 6 hours as needed By Mouth False Lorazepam 0.5 mg tablet [generic] 09/02 Inactiv e 2023 05974 50519 1 Lorazepam 0.5 mg tablet [generic] 1 tab By Mouth At bedtime as needed For anxiety 1 tab 2023 Active 2023 03818 50073 1 At bedtime as needed By Mouth False Polyethylen e glycol 3350 17 gram/dose oral powder [generic] 17 grams By Mouth Daily as needed PRN For order changed to PRN daily forcontispati on 17 grams 2023 Active 2023 85826 91710 4 Daily as needed By Mouth False Spironolact one 25 mg tablet [generic] 12.5 mg By Mouth Once daily For ESSENTIAL (PRIMARY) HYPERTENSION 12.5 mg 2023 Active 2023 42022 50618 1 Once daily By Mouth I10. 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 08/29/2024 Active [...] weight Temperature SpO2 Blood Sugar Pulse Respirations 38568 206 44303 1 64.00 mm[Hg] - Sitting 109.00 mm[Hg] - Sitting 98.70 Tympanic 90.00 % 64.00/ min 16.00/min 72038 206 45813 0 178.60 NI 23958 206 12000 6 63 NI 08902 206 02215 4 72.00 mm[Hg] - Sitting 121.00 mm[Hg] - Sitting 100.40 Forehead Scan 92.00 % 60.00/ min 18.00/min 51348 206 69139 8 72.00 mm[Hg] - Sitting 121.00 mm[Hg] - Sitting 100.40 Tympanic 39168 206 06615 9 60.00/ min 18.00/min 55393 206 02986 5 148.00 mg/dL 92878 207 02122 7 63.00 mm[Hg] - Sitting 122.00 mm[Hg] - Sitting 100.40 Tympanic 60.00/ min 18.00/min 00763 207 37965 7 55.00 mm[Hg] - Sitting 104.00 mm[Hg] - Sitting 98.40 Forehead Scan 96.00 % 66.00/ min 18.00/min 41358 207 12580 5 120.00 mg/dL 50014 207 75093 6 101.00 mg/dL 68156 207 28036 8 63.00 mm[Hg] - Sitting 122.00 mm[Hg] - Sitting 80307 207 60902 7 134.00 mg/dL 63325 207 87899 9 134.00 mg/dL 15164 207 70302 0 127.00 mg/dL 51433 207 42685 7 127.00 mg/dL 97356 207 72082 9 122.00 mg/dL 34048 208 57007 9 62.00 mm[Hg] - Sitting 106.00 mm[Hg] - Sitting 98.60 Tympanic 66.00/ min 18.00/min 13415 208 10318 3 117.00 mg/dL 07385 208 72862 2 155.00 mg/dL 54642 208 60483 6 98.60 Tympanic 99489 208 11490 1 123.00 mg/dL 31138 208 53147 2 123.00 mg/dL 37708 208 13872 4 62.00 mm[Hg] - Sitting 106.00 mm[Hg] - Sitting 93058 208 88634 7 123.00 mg/dL 83732 208 95938 1 123.00 mg/dL 55979 208 78778 7 136.00 mg/dL 93902 209 14100 0 60.00 mm[Hg] - Sitting 113.00 mm[Hg] - Sitting 98.50 Forehead Scan 98.00 % 61.00/ min 16.00/min 75124 209 72316 7 114.00 mg/dL 91989 209 01398 7 111.00 mg/dL 13149 209 52261 0 98.00 Tympanic 16269 209 02234 2 68.00 mm[Hg] - Sitting 118.00 mm[Hg] - Sitting 10115 209 91460 5 156.00 mg/dL 57908 209 18589 4 156.00 mg/dL 48165 209 74530 5 132.00 mg/dL 77182 209 02009 4 132.00 mg/dL 84176 209 93533 0 136.00 mg/dL 64990 210 43877 0 52.00 mm[Hg] - Sitting 119.00 mm[Hg] - Sitting 98.40 Forehead Scan 96.00 % 57.00/ min 18.00/min 80128 210 44704 9 107.00 mg/dL 31097 210 05491 7 108.00 mg/dL 18807 210 73593 8 97.00 Tympanic 67093 210 69474 2 126.00 mg/dL 09401 210 43608 0 126.00 mg/dL 67284 210 90998 9 126.00 mg/dL 63098 210 50773 2 154.00 mg/dL 68404 211 32456 0 53.00 mm[Hg] - Lying Down 104.00 mm[Hg] - Lying Down 98.90 Tympanic 93.00 % 60.00/ min 18.00/min 29400 211 74045 0 62.00 mm[Hg] - Sitting 72.00 mm[Hg] - Sitting 98.30 Tympanic 96.00 % 62.00/ min 18.00/min 28305 211 62883 9 136.00 mg/dL 57133 211 54998 8 131.00 mg/dL 91055 211 42814 3 118.00 mg/dL 90587 211 19799 9 130.00 mg/dL 30130 212 19026 7 46.00 mm[Hg] - Sitting 101.00 mm[Hg] - Sitting 98.50 Tympanic 96.00 % 62.00/ min 20.00/min 02228 212 13674 1 110.00 mg/dL 03656 212 35451 8 110.00 mg/dL 99190 212 69270 8 152.00 mg/dL 52909 212 87777 0 120.00 mg/dL 17486 213 15027 9 123.00 mg/dL 86070 213 10946 9 123.00 mg/dL 76699 213 15046 5 88813 213 75520 2 40714 213 76517 8 03740 213 50650 8 44988 213 68871 5 134.00 mg/dL 54265 214 81141 5 50.00 mm[Hg] - Sitting 108.00 mm[Hg] - Sitting 98.20 Tympanic 97.00 % 60.00/ min 20.00/min 64346 214 17304 4 122.00 mg/dL Immunizations Vaccine Date Status Influenza 08/29/2024 Completed (PCV13)Pneumococcal 08/29/2024 Completed
--- OUTSIDE RECORDS SUMMARY | 2024-09-08 22:01 | External Medical Summary | Continuity Of Care Document ---
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 unit/0.1 mL intradermal injection solution [Tuberculin PPD] 0.1mL Intradermal 1 time For PPD 2nd Step Give 2nd Step PPD Day 1 and Read results Day 3 (schedule 7 days after 1st READ) 0.1mL 09/10 Active 2023 94256 34270 0 1 time Intrad ermal False Tylenol 325 mg tablet 2 tabs By Mouth Every 4 hours as needed For Pain DO NOT EXCEED 3000 MG APAP/24 Hours 2 tabs 09/02 Inactiv e 2023 91352 99555 0 Every 4 hours as needed By Mouth False Tylenol 325 mg tablet 2 tabs By Mouth Every 4 hours as needed For Fever >100 DO NOT EXCEED 3000 MG APAP/24 Hours 2 tabs 2023 0000 /0000 Active 2023 57141 83812 0 Every 4 hours as needed By Mouth False Dulcolax (bisacodyl) 10 mg rectal suppository One Suppository per rectum PRN if Milk of Magnisia ineffective. Give on day 5 of no BM 1 sup 2023 Active 2023 53885 86649 1 Daily as needed Rectal False Fleet Enema 19 gram-7 gram/118 mL Administer per rectum PRN one time if dulcolax suppository not effective. Give on day 6 of no BM 1 2023 Active 2023 06725 24166 6 Daily as needed Rectal False Dextrose 50 % in water (D50W) intravenous solution [generic] Dextrose 50% jose manuel 20-50 ml (slow push) Intravenous if Glucagon not effective after 15 minutes. CALL 911 for ED Evaluation. 50% jose manuel 2023 Active 2023 86510 40613 9 Intrav enous False Glucagon (HCl) Emergency Kit 1 mg solution for injection Administer Glucagon 1 mg Intramuscular if 15 minutes after GLucose Gel is administered Glucose remains less than 70 1 mg 2023 Active 2023 80667 18062 2 Intram uscula r False Glucose Gel 40 % oral gel [Dextrose] PRN If resident is unable to swallow (with or without symptoms) and Glucose results less than 70 give GLucose 40% Gel 1 tube orally - Recheck Glucose 15 minutes after administratio n. 1 tube 2023 Active 2023 15218 54342 8 By Mouth False Santyl 250 unit/gram topical ointment dose Topical Once daily to wound bed daily with wound care For Unstageable Pressure injury dose 2023 Active 2023 48733 09855 0 Once daily Topica l False Fluconazole 200 mg tablet [generic] 1 tab By Mouth Once daily For Yeast infection 1 tab 09/01 Inactiv e 2023 21510 21833 3 Once daily By Mouth False Phenazopyri dine 200 mg tablet [generic] 1 tab By Mouth Three times daily as needed For pain 1 tab 09/02 Inactiv e 2023 94486 29072 1 Three times daily as needed By Mouth False Aspirin 81 mg tablet,zaki yed release [generic] 1 tab By Mouth At bedtime For CAD 1 tab 2023 Active 2023 66063 56108 9 At bedtime By Mouth False BD AutoShield Duo Pen Needle 30 gauge x 3/16in 1 4 times a day subcutaneous 4 times a day change needle wqith every use of insulin For Type 2 diabetes Mellitus 1 2023 Active 2023 86323 70695 5 4 times a day Subcut aneous False Albuterol sulfate HFA 90 mcg/actuati on aerosol inhaler [generic] 2 puff Inhalation Every 6 hours as needed For SOB or wheezing 2 puff 2023 Active 2023 90991 61904 2 Every 6 hours as needed Inhala tion False Tramadol 50 mg tablet [generic] 1 tab By Mouth Every 6 hours as needed For pain 1 tab 09/02 Inactiv e 2023 37521 30990 0 Every 6 hours as needed By Mouth False Docusate sodium 100 mg tablet [generic] 1 tab Daily as needed For constipation 1 tab 2023 Active 2023 91958 96244 1 Daily as needed By Mouth False Senna Laxative 8.6 mg tablet 1 tab By Mouth Daily as needed For constipation 1 tab 2023 Active 2023 14330 79858 0 Daily as needed By Mouth False Potassium chloride ER 20 mEq tablet,exte nded release [generic] 1 tab By Mouth Twice daily For hypokalemia 1 tab 2023 Active 2023 60122 34479 1 Twice daily By Mouth False Acyclovir 400 mg tablet [generic] 1 tab By Mouth Twice daily For preventative B-cell lymphoma 1 tab 2023 Active 2023 61457 82148 1 Twice daily By Mouth False Pantoprazol e 40 mg tablet,zaki yed release [generic] 1 tab By Mouth Once daily For gerd 1 tab 09/02 Inactiv e 2023 64152 98859 0 Once daily By Mouth False Metformin 1,000 mg tablet [generic] 1 tab By Mouth Twice daily For DM2 1 tab 09/02 Inactiv e 2023 37595 25788 0 Twice daily By Mouth False Rosuvastati n 20 mg tablet [generic] 1 tab By Mouth At bedtime For hyperlipdemia 1 tab 2023 Active 2023 89487 34350 0 At bedtime By Mouth False Polyethylen e glycol 3350 (bulk) powder [generic] 17 g By Mouth Daily as needed For constipation 17 g 2023 Active 2023 69809 32878 1 Daily as needed By Mouth False Prochlorper azine maleate 10 mg tablet [generic] 1 tab By Mouth Every 6 hours as needed For nausea 1 tab 09/02 Inactiv e 2023 07103 58924 1 Every 6 hours as needed By Mouth False Bisacodyl 5 mg tablet,zaki yed release [generic] 1 tab By Mouth Daily as needed For constipation 1 tab 2023 Active 2023 10889 42265 1 Daily as needed By Mouth False Lorazepam 0.5 mg tablet [generic] 1 tab By Mouth At bedtime as needed For anxiety 1 tab 09/02 Inactiv e 2023 66302 49767 1 At bedtime as needed By Mouth False Insulin glargine (U-300) conc. 300 unit/mL (3 mL) subcutaneou s pen [generic] 40 units Subcutaneous At bedtime For DM2 40 units 09/02 Inactiv e 2023 07647 40684 2 At bedtime Subcut aneous False Jardiance 10 mg tablet 1 tab By Mouth Once daily For DM2 1 tab 2023 Active 2023 81322 29826 7 Once daily By Mouth False Insulin [...] time order For diabetes 2023 Active 2023 10719 15929 5 3 times a day Subcut aneous False Sulfamethox azole 800 mg-trimetho prim 160 mg tablet [generic] 1 tab By Mouth 3 times a week on sunday, sunday, sunday For UTI 1 tab 09/02 Inactiv e 2023 06310 06340 1 3 times a week By Mouth False Gemtesa 75 mg tablet 75mg By Mouth Once daily For urinary management 75mg 2023 Active 2023 10455 67585 7 Once daily By Mouth False Losartan 25 mg tablet [generic] 25mg By Mouth Once daily For HTN 25mg 2023 Active 2023 33616 47300 9 Once daily By Mouth False Ozempic 1 mg/dose (4 mg/3 mL) subcutaneou s pen injector 1mg Subcutaneous Every week For diabetes 1mg 09/04 Inactiv e 2023 11681 67333 3 Every week Subcut aneous False Carvedilol 12.5 mg tablet [generic] 12.5mg By Mouth Twice daily For CAD 12.5mg 09/07 Inactiv e 2023 72426 87009 0 Twice daily By Mouth False Loratadine 10 mg tablet [generic] 10 By Mouth Once daily As Needed For CHEMO 10 09/02 Inactiv e 2023 05548 48556 9 Once daily By Mouth False Loperamide 2 mg tablet [generic] 2mg By Mouth Every 6 hours As Needed For diarrhea 2mg 2023 Active 2023 64062 23835 6 Every 6 hours By Mouth False Spironolact one 25 mg tablet [generic] 25mg By Mouth Once daily For HTN 25mg 09/04 Inactiv e 2023 23583 48667 1 Once daily By Mouth False Lasix 40 mg tablet 40 By Mouth Once daily For htn 40 09/04 Inactiv e 2023 74433 88041 1 Once daily By Mouth False Ondansetron HCl 8 mg tablet [generic] 8mg By Mouth Every 8 hours For Encephalopath y 8mg 09/02 Inactiv e 2023 95961 21954 0 Every 8 hours By Mouth False Levofloxaci n 750 mg tablet [generic] 750 mg By Mouth Once daily For UTI 750 mg 09/02 Inactiv e 2023 56048 57923 6 Once daily By Mouth False Miralax 17 gram/dose oral powder 17grams By Mouth Once daily For constipation 17grams 09/03 Inactiv e 2023 32423 62211 0 Once daily By Mouth False Sulfamethox azole 800 mg-trimetho prim 160 mg tablet [generic] 09/02 Inactiv e 2023 68135 20890 1 Sulfamethox azole 800 mg-trimetho prim 160 mg tablet [generic] 1 tab By Mouth 3 times a week on sunday, sunday, sunday For UTI 1 tab 09/02 Inactiv e 2023 72677 64216 1 3 times a week By Mouth False Sulfamethox azole 800 mg-trimetho prim 160 mg tablet [generic] 09/02 Inactiv e 2023 01436 78913 1 Sulfamethox azole 800 mg-trimetho prim 160 mg tablet [generic] 1 tab By Mouth 3 times a week on sunday, sunday, sunday For UTI 1 tab 2023 00/00 /0000 Active 2023 22498 80250 1 3 times a week By Mouth False Polyethylen e glycol 3350 17 gram/dose oral powder [generic] 17 grams By Mouth Once daily For contispation 17 grams 12/11/ 2024 12/12 /2024 Inactiv e 2023 58630 40689 4 Once daily By Mouth False Posaconazol e 100 mg tablet,zaki yed release [generic] 300mg By Mouth Once daily For Antifungal 300mg 09/18 Active 2023 91049 66291 0 Once daily By Mouth False Senna 8.6 mg tablet 2 tabs By Mouth Twice daily For contispation 2 tabs 2023 Active 2023 47920 97461 1 Twice daily By Mouth False ProSource No Carb 15 gram-60 kcal/30 mL oral liquid 30 ml By Mouth Once daily For Wound - Note total ml consumed 30 ml 2023 Active 2023 23342 72383 5 Once daily By Mouth False Levofloxaci n 500 mg tablet [generic] 500 mg By Mouth Once daily For Prophylaxis 500 mg 2023 Active 2023 69121 88239 8 Once daily By Mouth False Mirtazapine 7.5 mg tablet [generic] 7.5 mg By Mouth Once daily For Depression 7.5 mg 2023 Active 2023 77739 12156 5 Once daily By Mouth False Prochlorper azine maleate 10 mg tablet [generic] 09/02 Inactiv e 2023 35289 23616 1 Prochlorper azine maleate 10 mg tablet [generic] 1 tab By Mouth Every 6 hours as needed For nausea 1 tab 09/16 Active 2023 18091 05806 1 Every 6 hours as needed By Mouth False Ondansetron HCl 8 mg tablet [generic] 09/02 Inactiv e 2023 28341 74642 0 Ondansetron HCl 8 mg tablet [generic] 8mg By Mouth Every 8 hours For Nausea 8mg 2023 Active 2023 20888 63553 0 Every 8 hours By Mouth False Lorazepam 0.5 mg tablet [generic] 09/02 Inactiv e 2023 94703 61804 1 Lorazepam 0.5 mg tablet [generic] 1 tab By Mouth At bedtime as needed For anxiety 1 tab 09/02 Inactiv e 2023 59105 56736 1 At bedtime as needed By Mouth False Loratadine 10 mg tablet [generic] 09/02 Inactiv e 2023 52144 02337 9 Loratadine 10 mg tablet [generic] 10 By Mouth Once daily As Needed For when receiving chemotherapy 10 202300 Active 2023 32306 36483 9 Once daily By Mouth False Tramadol 50 mg tablet [generic] 09/02 Inactiv e 2023 38576 97256 0 Tramadol 50 mg tablet [generic] 1 tab By Mouth Every 6 hours as needed For moderate/mynor re pain 1 tab 09/02 Inactiv e 2023 74487 70514 0 Every 6 hours as needed By Mouth False Phenazopyri dine 200 mg tablet [generic] 09/02 Inactiv e 2023 47614 80406 1 Phenazopyri dine 200 mg tablet [generic] 1 tab By Mouth Three times daily as needed For bladder pain 1 tab 202300 Active 2023 00445 65151 1 Three times daily as needed By Mouth False Tylenol 325 mg tablet 09/02 Inactiv e 2023 34904 19651 0 Tylenol 325 mg tablet 2 tabs By Mouth Every 4 hours as needed For DO NOT EXCEED 3000 MG APAP/24 Hours For mild Pain 2 tabs 202300 /0000 Active 2023 56563 40263 0 Every 4 hours as needed By Mouth False Metformin 1,000 mg tablet [generic] 09/02 Inactiv e 2023 14839 03103 0 Metformin 1,000 mg tablet [generic] 1 tab By Mouth Twice daily with meals For DM2 1 tab 2023 Active 2023 69199 74664 0 Twice daily By Mouth False Pantoprazol e 40 mg tablet,zaki yed release [generic] 09/02 Inactiv e 2023 16725 74599 0 Pantoprazol e 40 mg tablet,zaki yed release [generic] 1 tab By Mouth Once daily For gerd 1 tab 2023 Active 2023 74888 59510 0 Once daily By Mouth False Tramadol 50 mg tablet [generic] 09/02 Inactiv e 2023 31393 92434 0 Tramadol 50 mg tablet [generic] 1 tab By Mouth Every 6 hours as needed For moderate/mynor re pain 1 tab 2023 Active 2023 15243 12617 0 Every 6 hours as needed By Mouth False Lorazepam 0.5 mg tablet [generic] 09/02 Inactiv e 2023 90138 21957 1 Lorazepam 0.5 mg tablet [generic] 1 tab By Mouth At bedtime as needed For anxiety 1 tab 2023 Active 2023 97464 48434 1 At bedtime as needed By Mouth False Polyethylen e glycol 3350 17 gram/dose oral powder [generic] 17 grams By Mouth Daily as needed PRN For order changed to PRN daily forcontispati on 17 grams 2023 Active 2023 71033 60346 4 Daily as needed By Mouth False Spironolact one 25 mg tablet [generic] 12.5 mg By Mouth Once daily For ESSENTIAL (PRIMARY) HYPERTENSION 12.5 mg 2023 Active 2023 73554 29446 1 Once daily By Mouth I10. 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 08/29/2024 Active [...] Active M13.80 Other specified arthritis, unspecified site 02/202400/0000 Active G47.33 Obstructive sleep apnea (adult) (pediatric) 02/20240000 Active VITAL SIGNS Date Time Diastolic blood pressure Systolic blood pressure Body height Body weight Temperature SpO2 Blood Sugar Pulse Respirations 206 63613 1 64.00 mm[Hg] - Sitting 109.00 mm[Hg] - Sitting 98.70 Tympanic 90.00 % 64.00/ min 16.00/min 93508 206 58647 0 178.60 NI 11730 206 55143 6 63 NI 06748 206 32375 4 72.00 mm[Hg] - Sitting 121.00 mm[Hg] - Sitting 100.40 Forehead Scan 92.00 % 60.00/ min 18.00/min 29191 206 40780 8 72.00 mm[Hg] - Sitting 121.00 mm[Hg] - Sitting 100.40 Tympanic 98375 206 94262 9 60.00/ min 18.00/min 09571 206 50579 5 148.00 mg/dL 207 39997 7 63.00 mm[Hg] - Sitting 122.00 mm[Hg] - Sitting 100.40 Tympanic 60.00/ min 18.00/min 32156 207 60660 7 55.00 mm[Hg] - Sitting 104.00 mm[Hg] - Sitting 98.40 Forehead Scan 96.00 % 66.00/ min 18.00/min 62650 207 71076 5 120.00 mg/dL 78727 207 91870 6 101.00 mg/dL 98527 207 83481 8 63.00 mm[Hg] - Sitting 122.00 mm[Hg] - Sitting 57520 207 14889 7 134.00 mg/dL 48394 207 30165 9 134.00 mg/dL 26528 207 08151 0 127.00 mg/dL 17045 207 17016 7 127.00 mg/dL 63024 207 11355 9 122.00 mg/dL 58518 208 27093 9 62.00 mm[Hg] - Sitting 106.00 mm[Hg] - Sitting 98.60 Tympanic 66.00/ min 18.00/min 23679 208 15912 3 117.00 mg/dL 86772 208 47547 2 155.00 mg/dL 208 84960 6 98.60 Tympanic 01141 208 37805 1 123.00 mg/dL 88994 208 84759 2 123.00 mg/dL 55599 208 82602 4 62.00 mm[Hg] - Sitting 106.00 mm[Hg] - Sitting 37411 208 34386 7 123.00 mg/dL 26801 208 65947 1 123.00 mg/dL 56748 208 25112 7 136.00 mg/dL 32249 209 55429 0 60.00 mm[Hg] - Sitting 113.00 mm[Hg] - Sitting 98.50 Forehead Scan 98.00 % 61.00/ min 16.00/min 55872 209 55570 7 114.00 mg/dL 04306 209 94267 7 111.00 mg/dL 52433 209 31227 0 98.00 Tympanic 25582 209 92953 2 68.00 mm[Hg] - Sitting 118.00 mm[Hg] - Sitting 47102 209 13544 5 156.00 mg/dL 03484 209 96797 4 156.00 mg/dL 06255 209 50921 5 132.00 mg/dL 22794 209 92660 4 132.00 mg/dL 41934 209 55284 0 136.00 mg/dL 44278 210 00635 0 52.00 mm[Hg] - Sitting 119.00 mm[Hg] - Sitting 98.40 Forehead Scan 96.00 % 57.00/ min 18.00/min 69844 210 95468 9 107.00 mg/dL 29489 210 45288 7 108.00 mg/dL 85233 210 49223 8 97.00 Tympanic 92386 210 49179 2 126.00 mg/dL 31041 210 29215 0 126.00 mg/dL 29391 210 26770 9 126.00 mg/dL 65097 210 51724 2 154.00 mg/dL 93084 211 38349 0 53.00 mm[Hg] - Lying Down 104.00 mm[Hg] - Lying Down 98.90 Tympanic 93.00 % 60.00/ min 18.00/min 46673 211 94685 0 62.00 mm[Hg] - Sitting 72.00 mm[Hg] - Sitting 98.30 Tympanic 96.00 % 62.00/ min 18.00/min 85935 211 05067 9 136.00 mg/dL 66954 211 21318 8 131.00 mg/dL 68797 211 80031 3 118.00 mg/dL 03497 211 08589 9 130.00 mg/dL 24150 212 08953 7 46.00 mm[Hg] - Sitting 101.00 mm[Hg] - Sitting 98.50 Tympanic 96.00 % 62.00/ min 20.00/min 99951 212 64792 1 110.00 mg/dL 40360 212 33858 8 110.00 mg/dL 22566 212 90142 8 152.00 mg/dL 26290 212 13424 0 120.00 mg/dL 64602 213 74471 9 123.00 mg/dL 51563 213 65471 9 123.00 mg/dL 50274 213 78398 5 83227 213 44527 2 26942 213 59494 8 11826 213 72364 8 12380 213 64605 5 134.00 mg/dL 46992 214 91732 5 50.00 mm[Hg] - Sitting 108.00 mm[Hg] - Sitting 98.20 Tympanic 97.00 % 60.00/ min 20.00/min 89128 214 03902 0 53.00 mm[Hg] - Sitting 104.00 mm[Hg] - Sitting 97.80 Tympanic 97.00 % 61.00/ min 18.00/min 28549 214 06200 4 122.00 mg/dL 10377 214 13299 2 122.00 mg/dL 56767 214 98076 7 142.00 mg/dL 08727 214 06843 4 142.00 mg/dL 76493 214 83505 7 115.00 mg/dL 66272 214 59711 9 115.00 mg/dL 65778 214 39019 1 121.00 mg/dL 08601 215 35762 5 130.00 mg/dL 30322 215 18886 8 130.00 mg/dL 12100 215 11144 5 130.00 mg/dL 61629 215 26510 2 117.00 mg/dL Immunizations Vaccine Date Status Influenza 08/29/2024 Completed (PCV13)Pneumococcal 08/29/2024 Completed
--- OUTSIDE RECORDS SUMMARY | 2024-09-08 22:01 | External Medical Summary | Continuity Of Care Document ---
Author Name Unknown Address [address] [address] Organization [facility] () Care Team Providers Care Adjunct Instructor Name Role Phone DO Perdomo Amy Primary Care Provider [phone] Allergies Allergy Reaction Start Date End Date [...] 3 0.1 mL 09/01 Inactiv e 2023 99427 93172 0 1 time Intrad ermal False Tubersol 5 tub. unit/0.1 mL intradermal injection solution [Tuberculin PPD] 0.1mL Intradermal 1 time For PPD 2nd Step Give 2nd Step PPD Day 1 and Read results Day 3 (schedule 7 days after 1st READ) 0.1mL 09/10 Active 2023 33281 82057 0 1 time Intrad ermal False Tylenol 325 mg tablet 2 tabs By Mouth Every 4 hours as needed For Pain DO NOT EXCEED 3000 MG APAP/24 Hours 2 tabs 09/02 Inactiv e 2023 49327 91433 0 Every 4 hours as needed By Mouth False Tylenol 325 mg tablet 2 tabs By Mouth Every 4 hours as needed For Fever >100 DO NOT EXCEED 3000 MG APAP/24 Hours 2 tabs 2023 0000 /0000 Active 2023 21977 44417 0 Every 4 hours as needed By Mouth False Dulcolax (bisacodyl) 10 mg rectal suppository One Suppository per rectum PRN if Milk of Magnisia ineffective. Give on day 5 of no BM 1 sup 2023 Active 2023 08782 91041 1 Daily as needed Rectal False Fleet Enema 19 gram-7 gram/118 mL Administer per rectum PRN one time if dulcolax suppository not effective. Give on day 6 of no BM 1 2023 Active 2023 46316 05946 6 Daily as needed Rectal False Dextrose 50 % in water (D50W) intravenous solution [generic] Dextrose 50% jose manuel 20-50 ml (slow push) Intravenous if Glucagon not effective after 15 minutes. CALL 911 for ED Evaluation. 50% jose manuel 2023 Active 2023 01644 89384 9 Intrav enous False Glucagon (HCl) Emergency Kit 1 mg solution for injection Administer Glucagon 1 mg Intramuscular if 15 minutes after GLucose Gel is administered Glucose remains less than 70 1 mg 2023 Active 2023 85946 99245 2 Intram uscula r False Glucose Gel 40 % oral gel [Dextrose] PRN If resident is unable to swallow (with or without symptoms) and Glucose results less than 70 give GLucose 40% Gel 1 tube orally - Recheck Glucose 15 minutes after administratio n. 1 tube 2023 Active 2023 99742 80774 8 By Mouth False Santyl 250 unit/gram topical ointment dose Topical Once daily to wound bed daily with wound care For Unstageable Pressure injury dose 2023 Active 2023 56392 86339 0 Once daily Topica l False Fluconazole 200 mg tablet [generic] 1 tab By Mouth Once daily For Yeast infection 1 tab 09/01 Inactiv e 2023 65607 21433 3 Once daily By Mouth False Phenazopyri dine 200 mg tablet [generic] 1 tab By Mouth Three times daily as needed For pain 1 tab 09/02 Inactiv e 2023 93233 37263 1 Three times daily as needed By Mouth False Aspirin 81 mg tablet,zaki yed release [generic] 1 tab By Mouth At bedtime For CAD 1 tab 2023 Active 2023 73008 30761 9 At bedtime By Mouth False BD AutoShield Duo Pen Needle 30 gauge x 3/16in 1 4 times a day subcutaneous 4 times a day change needle wqith every use of insulin For Type 2 diabetes Mellitus 1 2023 Active 2023 12152 93113 5 4 times a day Subcut aneous False Albuterol sulfate HFA 90 mcg/actuati on aerosol inhaler [generic] 2 puff Inhalation Every 6 hours as needed For SOB or wheezing 2 puff 2023 Active 2023 69645 18592 2 Every 6 hours as needed Inhala tion False Tramadol 50 mg tablet [generic] 1 tab By Mouth Every 6 hours as needed For pain 1 tab 09/02 Inactiv e 2023 80719 83428 0 Every 6 hours as needed By Mouth False Docusate sodium 100 mg tablet [generic] 1 tab Daily as needed For constipation 1 tab 2023 Active 2023 92035 82058 1 Daily as needed By Mouth False Senna Laxative 8.6 mg tablet 1 tab By Mouth Daily as needed For constipation 1 tab 2023 Active 2023 58059 46177 0 Daily as needed By Mouth False Potassium chloride ER 20 mEq tablet,exte nded release [generic] 1 tab By Mouth Twice daily For hypokalemia 1 tab 2023 Active 2023 25663 76527 1 Twice daily By Mouth False Acyclovir 400 mg tablet [generic] 1 tab By Mouth Twice daily For preventative B-cell lymphoma 1 tab 2023 Active 2023 01831 95830 1 Twice daily By Mouth False Pantoprazol e 40 mg tablet,zaki yed release [generic] 1 tab By Mouth Once daily For gerd 1 tab 09/02 Inactiv e 2023 18043 19777 0 Once daily By Mouth False Metformin 1,000 mg tablet [generic] 1 tab By Mouth Twice daily For DM2 1 tab 09/02 Inactiv e 2023 17475 19675 0 Twice daily By Mouth False Rosuvastati n 20 mg tablet [generic] 1 tab By Mouth At bedtime For hyperlipdemia 1 tab 2023 Active 2023 10754 51432 0 At bedtime By Mouth False Polyethylen e glycol 3350 (bulk) powder [generic] 17 g By Mouth Daily as needed For constipation 17 g 2023 Active 2023 18300 78615 1 Daily as needed By Mouth False Prochlorper azine maleate 10 mg tablet [generic] 1 tab By Mouth Every 6 hours as needed For nausea 1 tab 09/02 Inactiv e 2023 75008 89906 1 Every 6 hours as needed By Mouth False Bisacodyl 5 mg tablet,zaki yed release [generic] 1 tab By Mouth Daily as needed For constipation 1 tab 2023 Active 2023 33513 55118 1 Daily as needed By Mouth False Lorazepam 0.5 mg tablet [generic] 1 tab By Mouth At bedtime as needed For anxiety 1 tab 09/02 Inactiv e 2023 90686 08141 1 At bedtime as needed By Mouth False Insulin glargine (U-300) conc. 300 unit/mL (3 mL) subcutaneou s pen [generic] 40 units Subcutaneous At bedtime For DM2 40 units 09/02 Inactiv e 2023 57091 64872 2 At bedtime Subcut aneous False Jardiance 10 mg tablet 1 tab By Mouth Once daily For DM2 1 tab 2023 Active 2023 43209 12315 7 Once daily By Mouth False Insulin [...] time order For diabetes 2023 Active 2023 41090 79636 5 3 times a day Subcut aneous False Sulfamethox azole 800 mg-trimetho prim 160 mg tablet [generic] 1 tab By Mouth 3 times a week on sunday, sunday, sunday For UTI 1 tab 09/02 Inactiv e 2023 46483 14459 1 3 times a week By Mouth False Gemtesa 75 mg tablet 75mg By Mouth Once daily For urinary management 75mg 2023 Active 2023 17526 30394 7 Once daily By Mouth False Losartan 25 mg tablet [generic] 25mg By Mouth Once daily For HTN 25mg 2023 Active 2023 98748 38132 9 Once daily By Mouth False Ozempic 1 mg/dose (4 mg/3 mL) subcutaneou s pen injector 1mg Subcutaneous Every week For diabetes 1mg 09/04 Inactiv e 2023 58137 53840 3 Every week Subcut aneous False Carvedilol 12.5 mg tablet [generic] 12.5mg By Mouth Twice daily For CAD 12.5mg 2023 Active 2023 83353 68905 0 Twice daily By Mouth False Loratadine 10 mg tablet [generic] 10 By Mouth Once daily As Needed For CHEMO 10 09/02 Inactiv e 2023 02093 12710 9 Once daily By Mouth False Loperamide 2 mg tablet [generic] 2mg By Mouth Every 6 hours As Needed For diarrhea 2mg 2023 Active 2023 50982 60412 6 Every 6 hours By Mouth False Spironolact one 25 mg tablet [generic] 25mg By Mouth Once daily For HTN 25mg 09/04 Inactiv e 2023 85861 97956 1 Once daily By Mouth False Lasix 40 mg tablet 40 By Mouth Once daily For htn 40 09/04 Inactiv e 2023 25353 25179 1 Once daily By Mouth False Ondansetron HCl 8 mg tablet [generic] 8mg By Mouth Every 8 hours For Encephalopath y 8mg 09/02 Inactiv e 2023 90327 07112 0 Every 8 hours By Mouth False Levofloxaci n 750 mg tablet [generic] 750 mg By Mouth Once daily For UTI 750 mg 09/02 Inactiv e 2023 26288 39031 6 Once daily By Mouth False Miralax 17 gram/dose oral powder 17grams By Mouth Once daily For constipation 17grams 09/03 Inactiv e 2023 61720 35071 0 Once daily By Mouth False Sulfamethox azole 800 mg-trimetho prim 160 mg tablet [generic] 09/02 Inactiv e 2023 01511 23960 1 Sulfamethox azole 800 mg-trimetho prim 160 mg tablet [generic] 1 tab By Mouth 3 times a week on sunday, sunday, sunday For UTI 1 tab 09/02 Inactiv e 2023 80915 48171 1 3 times a week By Mouth False Sulfamethox azole 800 mg-trimetho prim 160 mg tablet [generic] 09/02 Inactiv e 2023 57135 03810 1 Sulfamethox azole 800 mg-trimetho prim 160 mg tablet [generic] 1 tab By Mouth 3 times a week on sunday, sunday, sunday For UTI 1 tab 2023 00/00 /0000 Active 2023 13704 42302 1 3 times a week By Mouth False Polyethylen e glycol 3350 17 gram/dose oral powder [generic] 17 grams By Mouth Once daily For contispation 17 grams 09/04 Inactiv e 2023 46568 46426 4 Once daily By Mouth False Posaconazol e 100 mg tablet,zaki yed release [generic] 300mg By Mouth Once daily For Antifungal 300mg 09/18 Active 2023 86690 43208 0 Once daily By Mouth False Senna 8.6 mg tablet 2 tabs By Mouth Twice daily For contispation 2 tabs 2023 Active 2023 88417 32748 1 Twice daily By Mouth False ProSource No Carb 15 gram-60 kcal/30 mL oral liquid 30 ml By Mouth Once daily For Wound - Note total ml consumed 30 ml 2023 Active 2023 05125 70541 5 Once daily By Mouth False Levofloxaci n 500 mg tablet [generic] 500 mg By Mouth Once daily For Prophylaxis 500 mg 2023 Active 2023 34327 85205 8 Once daily By Mouth False Mirtazapine 7.5 mg tablet [generic] 7.5 mg By Mouth Once daily For Depression 7.5 mg 2023 Active 2023 58217 78839 5 Once daily By Mouth False Prochlorper azine maleate 10 mg tablet [generic] 09/02 Inactiv e 2023 27174 45468 1 Prochlorper azine maleate 10 mg tablet [generic] 1 tab By Mouth Every 6 hours as needed For nausea 1 tab 09/16 Active 2023 75298 40019 1 Every 6 hours as needed By Mouth False Ondansetron HCl 8 mg tablet [generic] 09/02 Inactiv e 2023 48305 54515 0 Ondansetron HCl 8 mg tablet [generic] 8mg By Mouth Every 8 hours For Nausea 8mg 2023 Active 2023 60550 87517 0 Every 8 hours By Mouth False Lorazepam 0.5 mg tablet [generic] 09/02 Inactiv e 2023 07270 54092 1 Lorazepam 0.5 mg tablet [generic] 1 tab By Mouth At bedtime as needed For anxiety 1 tab 09/02 Inactiv e 2023 13002 26396 1 At bedtime as needed By Mouth False Loratadine 10 mg tablet [generic] 09/02 Inactiv e 2023 84893 96456 9 Loratadine 10 mg tablet [generic] 10 By Mouth Once daily As Needed For when receiving chemotherapy 10 202300 Active 2023 73373 22156 9 Once daily By Mouth False Tramadol 50 mg tablet [generic] 09/02 Inactiv e 2023 91043 70612 0 Tramadol 50 mg tablet [generic] 1 tab By Mouth Every 6 hours as needed For moderate/mynor re pain 1 tab 09/02 Inactiv e 2023 47763 68810 0 Every 6 hours as needed By Mouth False Phenazopyri dine 200 mg tablet [generic] 09/02 Inactiv e 2023 82448 79482 1 Phenazopyri dine 200 mg tablet [generic] 1 tab By Mouth Three times daily as needed For bladder pain 1 tab 202300 / Active 2023 49491 57203 1 Three times daily as needed By Mouth False Tylenol 325 mg tablet 09/02 Inactiv e 2023 27441 00041 0 Tylenol 325 mg tablet 2 tabs By Mouth Every 4 hours as needed For DO NOT EXCEED 3000 MG APAP/24 Hours For mild Pain 2 tabs 202300 /0000 Active 2023 83677 53277 0 Every 4 hours as needed By Mouth False Metformin 1,000 mg tablet [generic] 09/02 Inactiv e 2023 46268 31762 0 Metformin 1,000 mg tablet [generic] 1 tab By Mouth Twice daily with meals For DM2 1 tab 2023 Active 2023 50547 58839 0 Twice daily By Mouth False Pantoprazol e 40 mg tablet,zaki yed release [generic] 09/02 Inactiv e 2023 68762 30139 0 Pantoprazol e 40 mg tablet,zaki yed release [generic] 1 tab By Mouth Once daily For gerd 1 tab 2023 Active 2023 19275 34552 0 Once daily By Mouth False Tramadol 50 mg tablet [generic] 09/02 Inactiv e 2023 58262 38029 0 Tramadol 50 mg tablet [generic] 1 tab By Mouth Every 6 hours as needed For moderate/mynor re pain 1 tab 2023 Active 2023 51578 20346 0 Every 6 hours as needed By Mouth False Lorazepam 0.5 mg tablet [generic] 09/02 Inactiv e 2023 23568 54660 1 Lorazepam 0.5 mg tablet [generic] 1 tab By Mouth At bedtime as needed For anxiety 1 tab 2023 Active 2023 94031 50975 1 At bedtime as needed By Mouth False Polyethylen e glycol 3350 17 gram/dose oral powder [generic] 17 grams By Mouth Daily as needed PRN For order changed to PRN daily forcontispati on 17 grams 2023 Active 2023 62566 78786 4 Daily as needed By Mouth False Spironolact one 25 mg tablet [generic] 12.5 mg By Mouth Once daily For ESSENTIAL (PRIMARY) HYPERTENSION 12.5 mg 2023 Active 2023 68899 25589 1 Once daily By Mouth I10. False Furosemide 20 mg tablet [generic] 20 mg By Mouth Once daily For UNSPECIFIED SYSTOLIC (CONGESTIVE) HEART FAILURE 20 mg 2023 Active 2023 81242 05767 0 Once daily By Mouth I50.20 False [...] Active I25.10 Atherosclerotic hear t disease of [place] coronary artery without angina pectoris 08/29/2024 Active [...] weight Temperature SpO2 Blood Sugar Pulse Respirations 10416 206 78395 1 64.00 mm[Hg] - Sitting 109.00 mm[Hg] - Sitting 98.70 Tympanic 90.00 % 64.00/ min 16.00/min 60037 206 14928 0 178.60 NI 08483 206 83357 6 63 NI 12138 206 33907 4 72.00 mm[Hg] - Sitting 121.00 mm[Hg] - Sitting 100.40 Forehead Scan 92.00 % 60.00/ min 18.00/min 03285 206 96854 8 72.00 mm[Hg] - Sitting 121.00 mm[Hg] - Sitting 100.40 Tympanic 19095 206 56697 9 60.00/ min 18.00/min 27296 206 82248 5 148.00 mg/dL 46008 207 79826 7 63.00 mm[Hg] - Sitting 122.00 mm[Hg] - Sitting 100.40 Tympanic 60.00/ min 18.00/min 51742 207 85494 7 55.00 mm[Hg] - Sitting 104.00 mm[Hg] - Sitting 98.40 Forehead Scan 96.00 % 66.00/ min 18.00/min 52142 207 14824 5 120.00 mg/dL 70264 207 15220 6 101.00 mg/dL 26421 207 09398 8 63.00 mm[Hg] - Sitting 122.00 mm[Hg] - Sitting 49252 207 23124 7 134.00 mg/dL 22491 207 08529 9 134.00 mg/dL 54548 207 56257 0 127.00 mg/dL 65946 207 52220 7 127.00 mg/dL 59309 207 07515 9 122.00 mg/dL 48298 208 33862 9 62.00 mm[Hg] - Sitting 106.00 mm[Hg] - Sitting 98.60 Tympanic 66.00/ min 18.00/min 21982 208 76361 3 117.00 mg/dL 03138 208 89052 2 155.00 mg/dL 36918 208 35904 6 98.60 Tympanic 24163 208 43586 1 123.00 mg/dL 65351 208 77674 2 123.00 mg/dL 68671 208 23567 4 62.00 mm[Hg] - Sitting 106.00 mm[Hg] - Sitting 38439 208 68417 7 123.00 mg/dL 01042 208 06272 1 123.00 mg/dL 24009 208 19061 7 136.00 mg/dL 04023 209 27554 0 60.00 mm[Hg] - Sitting 113.00 mm[Hg] - Sitting 98.50 Forehead Scan 98.00 % 61.00/ min 16.00/min 09741 209 19342 7 114.00 mg/dL 93815 209 84621 7 111.00 mg/dL 74478 209 21650 0 98.00 Tympanic 41602 209 58586 2 68.00 mm[Hg] - Sitting 118.00 mm[Hg] - Sitting 82697 209 78106 5 156.00 mg/dL 57066 209 85707 4 156.00 mg/dL 21653 209 85480 5 132.00 mg/dL 96888 209 18461 4 132.00 mg/dL 69800 209 19936 0 136.00 mg/dL 66490 210 51444 0 52.00 mm[Hg] - Sitting 119.00 mm[Hg] - Sitting 98.40 Forehead Scan 96.00 % 57.00/ min 18.00/min 37780 210 31223 9 107.00 mg/dL 76313 210 39659 7 108.00 mg/dL 95750 210 80141 8 97.00 Tympanic 99347 210 26689 2 126.00 mg/dL 19018 210 22177 0 126.00 mg/dL 21355 210 63410 9 126.00 mg/dL 30622 210 97593 2 154.00 mg/dL 54738 211 13443 0 53.00 mm[Hg] - Lying Down 104.00 mm[Hg] - Lying Down 98.90 Tympanic 93.00 % 60.00/ min 18.00/min 71201 211 23633 0 62.00 mm[Hg] - Sitting 72.00 mm[Hg] - Sitting 98.30 Tympanic 96.00 % 62.00/ min 18.00/min 59158 211 44122 9 136.00 mg/dL 53414 211 00283 8 131.00 mg/dL 09668 211 47664 3 118.00 mg/dL 31509 211 53477 9 130.00 mg/dL 15597 212 99788 7 46.00 mm[Hg] - Sitting 101.00 mm[Hg] - Sitting 98.50 Tympanic 96.00 % 62.00/ min 20.00/min 99146 212 33102 1 110.00 mg/dL 33800 212 17280 8 110.00 mg/dL 75427 212 83980 8 152.00 mg/dL 98295 212 95270 0 120.00 mg/dL 69647 213 14169 9 123.00 mg/dL 95178 213 13069 9 123.00 mg/dL 35895 213 19420 5 46623 213 03216 2 46440 213 21119 8 56766 213 19160 8 61070 213 04762 5 134.00 mg/dL 46566 214 16731 5 50.00 mm[Hg] - Sitting 108.00 mm[Hg] - Sitting 98.20 Tympanic 97.00 % 60.00/ min 20.00/min 64476 214 81273 0 53.00 mm[Hg] - Sitting 104.00 mm[Hg] - Sitting 97.80 Tympanic 97.00 % 61.00/ min 18.00/min 90364 214 56782 4 122.00 mg/dL 85237 214 87643 2 122.00 mg/dL 46815 214 39846 7 142.00 mg/dL 22555 214 34574 4 142.00 mg/dL 12341 214 05256 7 115.00 mg/dL 97212 214 00373 9 115.00 mg/dL 34842 214 67185 1 121.00 mg/dL 88949 215 32791 5 130.00 mg/dL Immunizations Vaccine Date Status Influenza 08/29/2024 Completed (PCV13)Pneumococcal 08/29/2024 Completed
--- OUTSIDE RECORDS SUMMARY | 2024-09-08 22:02 | External Medical Summary | Continuity Of Care Document ---
Author Name Unknown Address [address] [address] Organization [facility] () Care Team Providers Care Completion Engineer Name Role Phone DO Perdomo Amy Primary Care Provider [phone] Allergies Allergy Reaction Start Date End Date [...] 3 0.1 mL 09/01 Inactiv e 2023 77237 83605 0 1 time Intrad ermal False Tubersol 5 tub. unit/0.1 mL intradermal injection solution [Tuberculin PPD] 0.1mL Intradermal 1 time For PPD 2nd Step Give 2nd Step PPD Day 1 and Read results Day 3 (schedule 7 days after 1st READ) 0.1mL 09/10 Active 2023 41330 28634 0 1 time Intrad ermal False Tylenol 325 mg tablet 2 tabs By Mouth Every 4 hours as needed For Pain DO NOT EXCEED 3000 MG APAP/24 Hours 2 tabs 09/02 Inactiv e 2023 20105 17445 0 Every 4 hours as needed By Mouth False Tylenol 325 mg tablet 2 tabs By Mouth Every 4 hours as needed For Fever >100 DO NOT EXCEED 3000 MG APAP/24 Hours 2 tabs 2023 0000 /0000 Active 2023 39835 29259 0 Every 4 hours as needed By Mouth False Dulcolax (bisacodyl) 10 mg rectal suppository One Suppository per rectum PRN if Milk of Magn[place] ineffective. Give on day 5 of no BM 1 sup 2023 Active 2023 41942 43651 1 Daily as needed Rectal False Fleet Enema 19 gram-7 gram/118 mL Administer per rectum PRN one time if dulcolax suppository not effective. Give on day 6 of no BM 1 2023 Active 2023 21868 92274 6 Daily as needed Rectal False Dextrose 50 % in water (D50W) intravenous solution [generic] Dextrose 50% jose manuel 20-50 ml (slow push) Intravenous if Glucagon not effective after 15 minutes. CALL 911 for ED Evaluation. 50% josem anuel 2023 Active 2023 02823 30590 9 Intrav enous False Glucagon (HCl) Emergency Kit 1 mg solution for injection Administer Glucagon 1 mg Intramuscular if 15 minutes after GLucose Gel is administered Glucose remains less than 70 1 mg 2023 Active 2023 95369 02189 2 Intram uscula r False Glucose Gel 40 % oral gel [Dextrose] PRN If resident is unable to swallow (with or without symptoms) and Glucose results less than 70 give GLucose 40% Gel 1 tube orally - Recheck Glucose 15 minutes after administratio n. 1 tube 2023 Active 2023 81501 75619 8 By Mouth False Santyl 250 unit/gram topical ointment dose Topical Once daily to wound bed daily with wound care For Unstageable Pressure injury dose 2023 Active 2023 20541 16740 0 Once daily Topica l False Fluconazole 200 mg tablet [generic] 1 tab By Mouth Once daily For Yeast infection 1 tab 09/01 Inactiv e 2023 54903 53825 3 Once daily By Mouth False Phenazopyri dine 200 mg tablet [generic] 1 tab By Mouth Three times daily as needed For pain 1 tab 09/02 Inactiv e 2023 90298 67869 1 Three times daily as needed By Mouth False Aspirin 81 mg tablet,zaki yed release [generic] 1 tab By Mouth At bedtime For CAD 1 tab 2023 Active 2023 63404 53389 9 At bedtime By Mouth False BD AutoShield Duo Pen Needle 30 gauge x 3/16in 1 4 times a day subcutaneous 4 times a day change needle wqith every use of insulin For Type 2 diabetes Mellitus 1 2023 Active 2023 11677 85095 5 4 times a day Subcut aneous False Albuterol sulfate HFA 90 mcg/actuati on aerosol inhaler [generic] 2 puff Inhalation Every 6 hours as needed For SOB or wheezing 2 puff 2023 Active 2023 49773 76264 2 Every 6 hours as needed Inhala tion False Tramadol 50 mg tablet [generic] 1 tab By Mouth Every 6 hours as needed For pain 1 tab 09/02 Inactiv e 2023 02839 53385 0 Every 6 hours as needed By Mouth False Docusate sodium 100 mg tablet [generic] 1 tab Daily as needed For constipation 1 tab 2023 Active 2023 13422 74060 1 Daily as needed By Mouth False Senna Laxative 8.6 mg tablet 1 tab By Mouth Daily as needed For constipation 1 tab 2023 Active 2023 70038 90222 0 Daily as needed By Mouth False Potassium chloride ER 20 mEq tablet,exte nded release [generic] 1 tab By Mouth Twice daily For hypokalemia 1 tab 2023 Active 2023 56507 64986 1 Twice daily By Mouth False Acyclovir 400 mg tablet [generic] 1 tab By Mouth Twice daily For preventative B-cell lymphoma 1 tab 2023 Active 2023 05439 95562 1 Twice daily By Mouth False Pantoprazol e 40 mg tablet,zaki yed release [generic] 1 tab By Mouth Once daily For gerd 1 tab 09/02 Inactiv e 2023 14109 31627 0 Once daily By Mouth False Metformin 1,000 mg tablet [generic] 1 tab By Mouth Twice daily For DM2 1 tab 09/02 Inactiv e 2023 39608 15325 0 Twice daily By Mouth False Rosuvastati n 20 mg tablet [generic] 1 tab By Mouth At bedtime For hyperlipdemia 1 tab 2023 Active 2023 11934 54706 0 At bedtime By Mouth False Polyethylen e glycol 3350 (bulk) powder [generic] 17 g By Mouth Daily as needed For constipation 17 g 2023 Active 2023 80118 93712 1 Daily as needed By Mouth False Prochlorper azine maleate 10 mg tablet [generic] 1 tab By Mouth Every 6 hours as needed For nausea 1 tab 09/02 Inactiv e 2023 94114 85721 1 Every 6 hours as needed By Mouth False Bisacodyl 5 mg tablet,zaki yed release [generic] 1 tab By Mouth Daily as needed For constipation 1 tab 2023 Active 2023 03149 26510 1 Daily as needed By Mouth False Lorazepam 0.5 mg tablet [generic] 1 tab By Mouth At bedtime as needed For anxiety 1 tab 09/02 Inactiv e 2023 68771 34112 1 At bedtime as needed By Mouth False Insulin glargine (U-300) conc. 300 unit/mL (3 mL) subcutaneou s pen [generic] 40 units Subcutaneous At bedtime For DM2 40 units 09/02 Inactiv e 2023 89449 22172 2 At bedtime Subcut aneous False Jardiance 10 mg tablet 1 tab By Mouth Once daily For DM2 1 tab 2023 Active 2023 73045 51665 7 Once daily By Mouth False Insulin [...] time order For diabetes 2023 Active 2023 49609 80490 5 3 times a day Subcut aneous False Sulfamethox azole 800 mg-trimetho prim 160 mg tablet [generic] 1 tab By Mouth 3 times a week on sunday, sunday, sunday For UTI 1 tab 09/02 Inactiv e 2023 09446 43538 1 3 times a week By Mouth False Gemtesa 75 mg tablet 75mg By Mouth Once daily For urinary management 75mg 2023 Active 2023 10698 42480 7 Once daily By Mouth False Losartan 25 mg tablet [generic] 25mg By Mouth Once daily For HTN 25mg 2023 Active 2023 70888 99338 9 Once daily By Mouth False Ozempic 1 mg/dose (4 mg/3 mL) subcutaneou s pen injector 1mg Subcutaneous Every week For diabetes 1mg 09/04 Inactiv e 2023 64982 95725 3 Every week Subcut aneous False Carvedilol 12.5 mg tablet [generic] 12.5mg By Mouth Twice daily For CAD 12.5mg 2023 Active 2023 82585 69360 0 Twice daily By Mouth False Loratadine 10 mg tablet [generic] 10 By Mouth Once daily As Needed For CHEMO 10 09/02 Inactiv e 2023 96454 48996 9 Once daily By Mouth False Loperamide 2 mg tablet [generic] 2mg By Mouth Every 6 hours As Needed For diarrhea 2mg 2023 Active 2023 98151 97092 6 Every 6 hours By Mouth False Spironolact one 25 mg tablet [generic] 25mg By Mouth Once daily For HTN 25mg 09/04 Inactiv e 2023 54324 09965 1 Once daily By Mouth False Lasix 40 mg tablet 40 By Mouth Once daily For htn 40 09/04 Inactiv e 2023 97043 66938 1 Once daily By Mouth False Ondansetron HCl 8 mg tablet [generic] 8mg By Mouth Every 8 hours For Encephalopath y 8mg 09/02 Inactiv e 2023 88196 37562 0 Every 8 hours By Mouth False Levofloxaci n 750 mg tablet [generic] 750 mg By Mouth Once daily For UTI 750 mg 09/02 Inactiv e 2023 70184 54804 6 Once daily By Mouth False Miralax 17 gram/dose oral powder 17grams By Mouth Once daily For constipation 17grams 09/03 Inactiv e 2023 47277 97640 0 Once daily By Mouth False Sulfamethox azole 800 mg-trimetho prim 160 mg tablet [generic] 09/02 Inactiv e 2023 21377 11693 1 Sulfamethox azole 800 mg-trimetho prim 160 mg tablet [generic] 1 tab By Mouth 3 times a week on sunday, sunday, sunday For UTI 1 tab 09/02 Inactiv e 2023 71247 66986 1 3 times a week By Mouth False Sulfamethox azole 800 mg-trimetho prim 160 mg tablet [generic] 09/02 Inactiv e 2023 16072 83410 1 Sulfamethox azole 800 mg-trimetho prim 160 mg tablet [generic] 1 tab By Mouth 3 times a week on sunday, sunday, sunday For UTI 1 tab 2023 00/00 /0000 Active 2023 78631 01363 1 3 times a week By Mouth False Polyethylen e glycol 3350 17 gram/dose oral powder [generic] 17 grams By Mouth Once daily For contispation 17 grams 09/04 Inactiv e 2023 39091 97178 4 Once daily By Mouth False Posaconazol e 100 mg tablet,zaki yed release [generic] 300mg By Mouth Once daily For Antifungal 300mg 09/18 Active 2023 09459 43575 0 Once daily By Mouth False Senna 8.6 mg tablet 2 tabs By Mouth Twice daily For contispation 2 tabs 2023 Active 2023 95819 25856 1 Twice daily By Mouth False ProSource No Carb 15 gram-60 kcal/30 mL oral liquid 30 ml By Mouth Once daily For Wound - Note total ml consumed 30 ml 2023 Active 2023 15850 89724 5 Once daily By Mouth False Levofloxaci n 500 mg tablet [generic] 500 mg By Mouth Once daily For Prophylaxis 500 mg 2023 Active 2023 71727 49039 8 Once daily By Mouth False Mirtazapine 7.5 mg tablet [generic] 7.5 mg By Mouth Once daily For Depression 7.5 mg 2023 Active 2023 92668 94200 5 Once daily By Mouth False Prochlorper azine maleate 10 mg tablet [generic] 09/02 Inactiv e 2023 55514 70849 1 Prochlorper azine maleate 10 mg tablet [generic] 1 tab By Mouth Every 6 hours as needed For nausea 1 tab 09/16 Active 2023 03797 49039 1 Every 6 hours as needed By Mouth False Ondansetron HCl 8 mg tablet [generic] 09/02 Inactiv e 2023 29387 31573 0 Ondansetron HCl 8 mg tablet [generic] 8mg By Mouth Every 8 hours For Nausea 8mg 2023 Active 2023 73287 52256 0 Every 8 hours By Mouth False Lorazepam 0.5 mg tablet [generic] 09/02 Inactiv e 2023 60842 89356 1 Lorazepam 0.5 mg tablet [generic] 1 tab By Mouth At bedtime as needed For anxiety 1 tab 09/02 Inactiv e 2023 73345 82506 1 At bedtime as needed By Mouth False Loratadine 10 mg tablet [generic] 09/02 Inactiv e 2023 80652 14023 9 Loratadine 10 mg tablet [generic] 10 By Mouth Once daily As Needed For when receiving chemotherapy 10 202300 Active 2023 81096 40384 9 Once daily By Mouth False Tramadol 50 mg tablet [generic] 09/02 Inactiv e 2023 27695 61292 0 Tramadol 50 mg tablet [generic] 1 tab By Mouth Every 6 hours as needed For moderate/mynor re pain 1 tab 09/02 Inactiv e 2023 58919 38772 0 Every 6 hours as needed By Mouth False Phenazopyri dine 200 mg tablet [generic] 09/02 Inactiv e 2023 78980 29429 1 Phenazopyri dine 200 mg tablet [generic] 1 tab By Mouth Three times daily as needed For bladder pain 1 tab 202300 / Active 2023 23392 21228 1 Three times daily as needed By Mouth False Tylenol 325 mg tablet 09/02 Inactiv e 2023 52942 32901 0 Tylenol 325 mg tablet 2 tabs By Mouth Every 4 hours as needed For DO NOT EXCEED 3000 MG APAP/24 Hours For mild Pain 2 tabs 202300 /0000 Active 2023 51755 98993 0 Every 4 hours as needed By Mouth False Metformin 1,000 mg tablet [generic] 09/02 Inactiv e 2023 81239 40089 0 Metformin 1,000 mg tablet [generic] 1 tab By Mouth Twice daily with meals For DM2 1 tab 2023 Active 2023 35594 62604 0 Twice daily By Mouth False Pantoprazol e 40 mg tablet,zaki yed release [generic] 09/02 Inactiv e 2023 84512 08159 0 Pantoprazol e 40 mg tablet,zaki yed release [generic] 1 tab By Mouth Once daily For gerd 1 tab 2023 Active 2023 54239 37997 0 Once daily By Mouth False Tramadol 50 mg tablet [generic] 09/02 Inactiv e 2023 83559 26855 0 Tramadol 50 mg tablet [generic] 1 tab By Mouth Every 6 hours as needed For moderate/mynor re pain 1 tab 2023 Active 2023 42885 29109 0 Every 6 hours as needed By Mouth False Lorazepam 0.5 mg tablet [generic] 09/02 Inactiv e 2023 98092 95553 1 Lorazepam 0.5 mg tablet [generic] 1 tab By Mouth At bedtime as needed For anxiety 1 tab 2023 Active 2023 96563 28596 1 At bedtime as needed By Mouth False Polyethylen e glycol 3350 17 gram/dose oral powder [generic] 17 grams By Mouth Daily as needed PRN For order changed to PRN daily forcontispati on 17 grams 2023 Active 2023 49777 08699 4 Daily as needed By Mouth False Spironolact one 25 mg tablet [generic] 12.5 mg By Mouth Once daily For ESSENTIAL (PRIMARY) HYPERTENSION 12.5 mg 2023 Active 2023 36393 87874 1 Once daily By Mouth I10. False Furosemide 20 mg tablet [generic] 20 mg By Mouth Once daily For UNSPECIFIED SYSTOLIC (CONGESTIVE) HEART FAILURE 20 mg 2023 Active 2023 26600 96350 0 Once daily By Mouth I50.20 False [...] Active I25.10 Atherosclerotic hear t disease of [place] coronary artery without angina pectoris 08/29/2024 Active [...] weight Temperature SpO2 Blood Sugar Pulse Respirations 85233 206 85367 1 64.00 mm[Hg] - Sitting 109.00 mm[Hg] - Sitting 98.70 Tympanic 90.00 % 64.00/ min 16.00/min 47603 206 80061 0 178.60 NI 15239 206 61642 6 63 NI 39259 206 58376 4 72.00 mm[Hg] - Sitting 121.00 mm[Hg] - Sitting 100.40 Forehead Scan 92.00 % 60.00/ min 18.00/min 50692 206 12639 8 72.00 mm[Hg] - Sitting 121.00 mm[Hg] - Sitting 100.40 Tympanic 48046 206 66574 9 60.00/ min 18.00/min 78588 206 02954 5 148.00 mg/dL 04523 207 25909 7 63.00 mm[Hg] - Sitting 122.00 mm[Hg] - Sitting 100.40 Tympanic 60.00/ min 18.00/min 13552 207 52729 7 55.00 mm[Hg] - Sitting 104.00 mm[Hg] - Sitting 98.40 Forehead Scan 96.00 % 66.00/ min 18.00/min 20075 207 44831 5 120.00 mg/dL 79544 207 38109 6 101.00 mg/dL 10141 207 84079 8 63.00 mm[Hg] - Sitting 122.00 mm[Hg] - Sitting 05275 207 74108 7 134.00 mg/dL 34557 207 20635 9 134.00 mg/dL 80530 207 30194 0 127.00 mg/dL 61524 207 87060 7 127.00 mg/dL 79081 207 75373 9 122.00 mg/dL 11350 208 99886 9 62.00 mm[Hg] - Sitting 106.00 mm[Hg] - Sitting 98.60 Tympanic 66.00/ min 18.00/min 65565 208 22251 3 117.00 mg/dL 23264 208 16004 2 155.00 mg/dL 87275 208 63650 6 98.60 Tympanic 22850 208 56409 1 123.00 mg/dL 09779 208 68868 2 123.00 mg/dL 77440 208 00830 4 62.00 mm[Hg] - Sitting 106.00 mm[Hg] - Sitting 20930 208 18144 7 123.00 mg/dL 40865 208 17013 1 123.00 mg/dL 49723 208 73292 7 136.00 mg/dL 87689 209 31510 0 60.00 mm[Hg] - Sitting 113.00 mm[Hg] - Sitting 98.50 Forehead Scan 98.00 % 61.00/ min 16.00/min 50952 209 29620 7 114.00 mg/dL 57939 209 93347 7 111.00 mg/dL 68194 209 63767 0 98.00 Tympanic 67174 209 09376 2 68.00 mm[Hg] - Sitting 118.00 mm[Hg] - Sitting 42620 209 34576 5 156.00 mg/dL 56432 209 71767 4 156.00 mg/dL 23506 209 31624 5 132.00 mg/dL 46397 209 00247 4 132.00 mg/dL 57095 209 16264 0 136.00 mg/dL 25612 210 40647 0 52.00 mm[Hg] - Sitting 119.00 mm[Hg] - Sitting 98.40 Forehead Scan 96.00 % 57.00/ min 18.00/min 11527 210 74870 9 107.00 mg/dL 04590 210 27988 7 108.00 mg/dL 25099 210 20983 8 97.00 Tympanic 97348 210 76646 2 126.00 mg/dL 16740 210 00824 0 126.00 mg/dL 20298 210 49857 9 126.00 mg/dL 40602 210 99707 2 154.00 mg/dL 53632 211 65761 0 53.00 mm[Hg] - Lying Down 104.00 mm[Hg] - Lying Down 98.90 Tympanic 93.00 % 60.00/ min 18.00/min 34028 211 72498 0 62.00 mm[Hg] - Sitting 72.00 mm[Hg] - Sitting 98.30 Tympanic 96.00 % 62.00/ min 18.00/min 02499 211 03616 9 136.00 mg/dL 94962 211 07371 8 131.00 mg/dL 12285 211 58314 3 118.00 mg/dL 12177 211 52748 9 130.00 mg/dL 63564 212 10576 7 46.00 mm[Hg] - Sitting 101.00 mm[Hg] - Sitting 98.50 Tympanic 96.00 % 62.00/ min 20.00/min 94350 212 59563 1 110.00 mg/dL 57590 212 89372 8 110.00 mg/dL 97283 212 23728 8 152.00 mg/dL 21912 212 87413 0 120.00 mg/dL 97947 213 88057 9 123.00 mg/dL 213 59575 9 123.00 mg/dL 213 55194 5 48993 213 72749 2 Immunizations Vaccine Date Status Influenza 08/29/2024 Completed (PCV13)Pneumococcal 08/29/2024 Completed
--- OUTSIDE RECORDS SUMMARY | 2024-09-08 22:02 | External Medical Summary | Continuity Of Care Document ---
Author Name Unknown Address [address] [address] [facility] () Care Team Providers Care Mail Teller Name Role Phone DO Perdomo Amy Primary Care Provider [phone] Allergies Allergy Reaction Start Date End Date [...] 3 0.1 mL 09/01 Inactiv e 2023 37730 98191 0 1 time Intrad ermal False Tubersol 5 tub. unit/0.1 mL intradermal injection solution [Tuberculin PPD] 0.1mL Intradermal 1 time For PPD 2nd Step Give 2nd Step PPD Day 1 and Read results Day 3 (schedule 7 days after 1st READ) 0.1mL 09/10 Active 2023 65015 86734 0 1 time Intrad ermal False Tylenol 325 mg tablet 2 tabs By Mouth Every 4 hours as needed For Pain DO NOT EXCEED 3000 MG APAP/24 Hours 2 tabs 09/02 Inactiv e 2023 65247 33716 0 Every 4 hours as needed By Mouth False Tylenol 325 mg tablet 2 tabs By Mouth Every 4 hours as needed For Fever >100 DO NOT EXCEED 3000 MG APAP/24 Hours 2 tabs 2023 0000 /0000 Active 2023 11406 82305 0 Every 4 hours as needed By Mouth False Dulcolax (bisacodyl) 10 mg rectal suppository One Suppository per rectum PRN if Milk of Magnisia ineffective. Give on day 5 of no BM 1 sup 2023 Active 2023 41270 68521 1 Daily as needed Rectal False Fleet Enema 19 gram-7 gram/118 mL Administer per rectum PRN one time if dulcolax suppository not effective. Give on day 6 of no BM 1 2023 Active 2023 55810 03884 6 Daily as needed Rectal False Dextrose 50 % in water (D50W) intravenous solution [generic] Dextrose 50% jose manuel 20-50 ml (slow push) Intravenous if Glucagon not effective after 15 minutes. CALL 911 for ED Evaluation. 50% jose manuel 2023 Active 2023 16249 98910 9 Intrav enous False Glucagon (HCl) Emergency Kit 1 mg solution for injection Administer Glucagon 1 mg Intramuscular if 15 minutes after GLucose Gel is administered Glucose remains less than 70 1 mg 2023 Active 2023 89500 70581 2 Intram uscula r False Glucose Gel 40 % oral gel [Dextrose] PRN If resident is unable to swallow (with or without symptoms) and Glucose results less than 70 give GLucose 40% Gel 1 tube orally - Recheck Glucose 15 minutes after administratio n. 1 tube 2023 Active 2023 93260 30964 8 By Mouth False Santyl 250 unit/gram topical ointment dose Topical Once daily to wound bed daily with wound care For Unstageable Pressure injury dose 2023 Active 2023 61379 50563 0 Once daily Topica l False Fluconazole 200 mg tablet [generic] 1 tab By Mouth Once daily For Yeast infection 1 tab 09/01 Inactiv e 2023 96196 07249 3 Once daily By Mouth False Phenazopyri dine 200 mg tablet [generic] 1 tab By Mouth Three times daily as needed For pain 1 tab 09/02 Inactiv e 2023 23486 21617 1 Three times daily as needed By Mouth False Aspirin 81 mg tablet,zaki yed release [generic] 1 tab By Mouth At bedtime For CAD 1 tab 2023 Active 2023 93601 92531 9 At bedtime By Mouth False BD AutoShield Duo Pen Needle 30 gauge x 3/16in 1 4 times a day subcutaneous 4 times a day change needle wqith every use of insulin For Type 2 diabetes Mellitus 1 2023 Active 2023 69774 95932 5 4 times a day Subcut aneous False Albuterol sulfate HFA 90 mcg/actuati on aerosol inhaler [generic] 2 puff Inhalation Every 6 hours as needed For SOB or wheezing 2 puff 2023 Active 2023 40523 87013 2 Every 6 hours as needed Inhala tion False Tramadol 50 mg tablet [generic] 1 tab By Mouth Every 6 hours as needed For pain 1 tab 09/02 Inactiv e 2023 60607 29481 0 Every 6 hours as needed By Mouth False Docusate sodium 100 mg tablet [generic] 1 tab Daily as needed For constipation 1 tab 2023 Active 2023 39833 71763 1 Daily as needed By Mouth False Senna Laxative 8.6 mg tablet 1 tab By Mouth Daily as needed For constipation 1 tab 2023 Active 2023 44327 52099 0 Daily as needed By Mouth False Potassium chloride ER 20 mEq tablet,exte nded release [generic] 1 tab By Mouth Twice daily For hypokalemia 1 tab 2023 Active 2023 43956 38662 1 Twice daily By Mouth False Acyclovir 400 mg tablet [generic] 1 tab By Mouth Twice daily For preventative B-cell lymphoma 1 tab 2023 Active 2023 37190 72784 1 Twice daily By Mouth False Pantoprazol e 40 mg tablet,zaki yed release [generic] 1 tab By Mouth Once daily For gerd 1 tab 09/02 Inactiv e 2023 60421 21301 0 Once daily By Mouth False Metformin 1,000 mg tablet [generic] 1 tab By Mouth Twice daily For DM2 1 tab 09/02 Inactiv e 2023 66641 77606 0 Twice daily By Mouth False Rosuvastati n 20 mg tablet [generic] 1 tab By Mouth At bedtime For hyperlipdemia 1 tab 2023 Active 2023 50164 30363 0 At bedtime By Mouth False Polyethylen e glycol 3350 (bulk) powder [generic] 17 g By Mouth Daily as needed For constipation 17 g 2023 Active 2023 70241 75874 1 Daily as needed By Mouth False Prochlorper azine maleate 10 mg tablet [generic] 1 tab By Mouth Every 6 hours as needed For nausea 1 tab 09/02 Inactiv e 2023 30071 32149 1 Every 6 hours as needed By Mouth False Bisacodyl 5 mg tablet,zaki yed release [generic] 1 tab By Mouth Daily as needed For constipation 1 tab 2023 Active 2023 74598 24872 1 Daily as needed By Mouth False Lorazepam 0.5 mg tablet [generic] 1 tab By Mouth At bedtime as needed For anxiety 1 tab 09/02 Inactiv e 2023 69491 36398 1 At bedtime as needed By Mouth False Insulin glargine (U-300) conc. 300 unit/mL (3 mL) subcutaneou s pen [generic] 40 units Subcutaneous At bedtime For DM2 40 units 09/02 Inactiv e 2023 29068 34395 2 At bedtime Subcut aneous False Jardiance 10 mg tablet 1 tab By Mouth Once daily For DM2 1 tab 2023 Active 2023 80055 77615 7 Once daily By Mouth False Insulin [...] time order For diabetes 2023 Active 2023 23533 81100 5 3 times a day Subcut aneous False Sulfamethox azole 800 mg-trimetho prim 160 mg tablet [generic] 1 tab By Mouth 3 times a week on sunday, sunday, sunday For UTI 1 tab 09/02 Inactiv e 2023 20027 59405 1 3 times a week By Mouth False Gemtesa 75 mg tablet 75mg By Mouth Once daily For urinary management 75mg 2023 Active 2023 38049 69719 7 Once daily By Mouth False Losartan 25 mg tablet [generic] 25mg By Mouth Once daily For HTN 25mg 2023 Active 2023 85093 67727 9 Once daily By Mouth False Ozempic 1 mg/dose (4 mg/3 mL) subcutaneou s pen injector 1mg Subcutaneous Every week For diabetes 1mg 09/04 Inactiv e 2023 50761 08313 3 Every week Subcut aneous False Carvedilol 12.5 mg tablet [generic] 12.5mg By Mouth Twice daily For CAD 12.5mg 2023 Active 2023 58762 60846 0 Twice daily By Mouth False Loratadine 10 mg tablet [generic] 10 By Mouth Once daily As Needed For CHEMO 10 09/02 Inactiv e 2023 63655 79061 9 Once daily By Mouth False Loperamide 2 mg tablet [generic] 2mg By Mouth Every 6 hours As Needed For diarrhea 2mg 2023 Active 2023 29789 46316 6 Every 6 hours By Mouth False Spironolact one 25 mg tablet [generic] 25mg By Mouth Once daily For HTN 25mg 09/04 Inactiv e 2023 55627 23735 1 Once daily By Mouth False Lasix 40 mg tablet 40 By Mouth Once daily For htn 40 09/04 Inactiv e 2023 98176 40142 1 Once daily By Mouth False Ondansetron HCl 8 mg tablet [generic] 8mg By Mouth Every 8 hours For Encephalopath y 8mg 09/02 Inactiv e 2023 99926 13646 0 Every 8 hours By Mouth False Levofloxaci n 750 mg tablet [generic] 750 mg By Mouth Once daily For UTI 750 mg 09/02 Inactiv e 2023 13260 55613 6 Once daily By Mouth False Miralax 17 gram/dose oral powder 17grams By Mouth Once daily For constipation 17grams 09/03 Inactiv e 2023 76465 31619 0 Once daily By Mouth False Sulfamethox azole 800 mg-trimetho prim 160 mg tablet [generic] 09/02 Inactiv e 2023 70471 22844 1 Sulfamethox azole 800 mg-trimetho prim 160 mg tablet [generic] 1 tab By Mouth 3 times a week on sunday, sunday, sunday For UTI 1 tab 09/02 Inactiv e 2023 89164 70004 1 3 times a week By Mouth False Sulfamethox azole 800 mg-trimetho prim 160 mg tablet [generic] 09/02 Inactiv e 2023 29050 95137 1 Sulfamethox azole 800 mg-trimetho prim 160 mg tablet [generic] 1 tab By Mouth 3 times a week on sunday, sunday, sunday For UTI 1 tab 2023 00/00 /0000 Active 2023 96698 78201 1 3 times a week By Mouth False Polyethylen e glycol 3350 17 gram/dose oral powder [generic] 17 grams By Mouth Once daily For contispation 17 grams 09/04 Inactiv e 2023 04658 29701 4 Once daily By Mouth False Posaconazol e 100 mg tablet,zaki yed release [generic] 300mg By Mouth Once daily For Antifungal 300mg 09/18 Active 2023 80791 40219 0 Once daily By Mouth False Senna 8.6 mg tablet 2 tabs By Mouth Twice daily For contispation 2 tabs 2023 Active 2023 94723 73456 1 Twice daily By Mouth False ProSource No Carb 15 gram-60 kcal/30 mL oral liquid 30 ml By Mouth Once daily For Wound - Note total ml consumed 30 ml 2023 Active 2023 14925 64646 5 Once daily By Mouth False Levofloxaci n 500 mg tablet [generic] 500 mg By Mouth Once daily For Prophylaxis 500 mg 2023 Active 2023 16143 48901 8 Once daily By Mouth False Mirtazapine 7.5 mg tablet [generic] 7.5 mg By Mouth Once daily For Depression 7.5 mg 2023 Active 2023 92608 92339 5 Once daily By Mouth False Prochlorper azine maleate 10 mg tablet [generic] 09/02 Inactiv e 2023 52821 80227 1 Prochlorper azine maleate 10 mg tablet [generic] 1 tab By Mouth Every 6 hours as needed For nausea 1 tab 09/16 Active 2023 99572 56811 1 Every 6 hours as needed By Mouth False Ondansetron HCl 8 mg tablet [generic] 09/02 Inactiv e 2023 11757 18542 0 Ondansetron HCl 8 mg tablet [generic] 8mg By Mouth Every 8 hours For Nausea 8mg 2023 Active 2023 91936 26185 0 Every 8 hours By Mouth False Lorazepam 0.5 mg tablet [generic] 09/02 Inactiv e 2023 03203 62645 1 Lorazepam 0.5 mg tablet [generic] 1 tab By Mouth At bedtime as needed For anxiety 1 tab 09/02 Inactiv e 2023 74866 42745 1 At bedtime as needed By Mouth False Loratadine 10 mg tablet [generic] 09/02 Inactiv e 2023 43595 05915 9 Loratadine 10 mg tablet [generic] 10 By Mouth Once daily As Needed For when receiving chemotherapy 10 202300 Active 2023 45689 39401 9 Once daily By Mouth False Tramadol 50 mg tablet [generic] 09/02 Inactiv e 2023 40768 32419 0 Tramadol 50 mg tablet [generic] 1 tab By Mouth Every 6 hours as needed For moderate/mynor re pain 1 tab 09/02 Inactiv e 2023 41301 07274 0 Every 6 hours as needed By Mouth False Phenazopyri dine 200 mg tablet [generic] 09/02 Inactiv e 2023 43654 28036 1 Phenazopyri dine 200 mg tablet [generic] 1 tab By Mouth Three times daily as needed For bladder pain 1 tab 202300 / Active 2023 19755 58236 1 Three times daily as needed By Mouth False Tylenol 325 mg tablet 09/02 Inactiv e 2023 14417 46845 0 Tylenol 325 mg tablet 2 tabs By Mouth Every 4 hours as needed For DO NOT EXCEED 3000 MG APAP/24 Hours For mild Pain 2 tabs 202300 /0000 Active 2023 17267 97344 0 Every 4 hours as needed By Mouth False Metformin 1,000 mg tablet [generic] 09/02 Inactiv e 2023 18708 72474 0 Metformin 1,000 mg tablet [generic] 1 tab By Mouth Twice daily with meals For DM2 1 tab 2023 Active 2023 39093 43966 0 Twice daily By Mouth False Pantoprazol e 40 mg tablet,zaki yed release [generic] 09/02 Inactiv e 2023 76579 29800 0 Pantoprazol e 40 mg tablet,zaki yed release [generic] 1 tab By Mouth Once daily For gerd 1 tab 2023 Active 2023 36129 56659 0 Once daily By Mouth False Tramadol 50 mg tablet [generic] 09/02 Inactiv e 2023 55756 48755 0 Tramadol 50 mg tablet [generic] 1 tab By Mouth Every 6 hours as needed For moderate/mynor re pain 1 tab 2023 Active 2023 59277 35993 0 Every 6 hours as needed By Mouth False Lorazepam 0.5 mg tablet [generic] 09/02 Inactiv e 2023 52221 97106 1 Lorazepam 0.5 mg tablet [generic] 1 tab By Mouth At bedtime as needed For anxiety 1 tab 2023 Active 2023 50823 12747 1 At bedtime as needed By Mouth False Polyethylen e glycol 3350 17 gram/dose oral powder [generic] 17 grams By Mouth Daily as needed PRN For order changed to PRN daily forcontispati on 17 grams 2023 Active 2023 16564 28661 4 Daily as needed By Mouth False Spironolact one 25 mg tablet [generic] 12.5 mg By Mouth Once daily For ESSENTIAL (PRIMARY) HYPERTENSION 12.5 mg 2023 Active 2023 87319 27059 1 Once daily By Mouth I10. False Furosemide 20 mg tablet [generic] 20 mg By Mouth Once daily For UNSPECIFIED SYSTOLIC (CONGESTIVE) HEART FAILURE 20 mg 2023 Active 2023 83045 91649 0 Once daily By Mouth I50.20 False [...] Active I25.10 Atherosclerotic hear t disease of [place] coronary artery without angina pectoris 08/29/2024 Active [...] weight Temperature SpO2 Blood Sugar Pulse Respirations 72729 206 59464 1 64.00 mm[Hg] - Sitting 109.00 mm[Hg] - Sitting 98.70 Tympanic 90.00 % 64.00/ min 16.00/min 67900 206 11365 0 178.60 NI 23120 206 10843 6 63 NI 85006 206 76670 4 72.00 mm[Hg] - Sitting 121.00 mm[Hg] - Sitting 100.40 Forehead Scan 92.00 % 60.00/ min 18.00/min 82219 206 41361 8 72.00 mm[Hg] - Sitting 121.00 mm[Hg] - Sitting 100.40 Tympanic 29770 206 98744 9 60.00/ min 18.00/min 23242 206 80654 5 148.00 mg/dL 73985 207 34002 7 63.00 mm[Hg] - Sitting 122.00 mm[Hg] - Sitting 100.40 Tympanic 60.00/ min 18.00/min 85859 207 68844 7 55.00 mm[Hg] - Sitting 104.00 mm[Hg] - Sitting 98.40 Forehead Scan 96.00 % 66.00/ min 18.00/min 03799 207 95147 5 120.00 mg/dL 97436 207 47669 6 101.00 mg/dL 36935 207 96267 8 63.00 mm[Hg] - Sitting 122.00 mm[Hg] - Sitting 05196 207 14754 7 134.00 mg/dL 87215 207 03585 9 134.00 mg/dL 54156 207 11439 0 127.00 mg/dL 64561 207 97452 7 127.00 mg/dL 40139 207 81653 9 122.00 mg/dL 61250 208 88948 9 62.00 mm[Hg] - Sitting 106.00 mm[Hg] - Sitting 98.60 Tympanic 66.00/ min 18.00/min 71121 208 70758 3 117.00 mg/dL 19627 208 05960 2 155.00 mg/dL 12109 208 39100 6 98.60 Tympanic 63543 208 61070 1 123.00 mg/dL 04524 208 00277 2 123.00 mg/dL 78336 208 60174 4 62.00 mm[Hg] - Sitting 106.00 mm[Hg] - Sitting 40279 208 63032 7 123.00 mg/dL 25235 208 46910 1 123.00 mg/dL 21178 208 54964 7 136.00 mg/dL 96705 209 24476 0 60.00 mm[Hg] - Sitting 113.00 mm[Hg] - Sitting 98.50 Forehead Scan 98.00 % 61.00/ min 16.00/min 08387 209 72235 7 114.00 mg/dL 40669 209 91690 7 111.00 mg/dL 95266 209 03498 0 98.00 Tympanic 65267 209 96076 2 68.00 mm[Hg] - Sitting 118.00 mm[Hg] - Sitting 17276 209 84410 5 156.00 mg/dL 05035 209 56825 4 156.00 mg/dL 17127 209 77382 5 132.00 mg/dL 05443 209 41966 4 132.00 mg/dL 71263 209 28864 0 136.00 mg/dL 38105 210 27565 0 52.00 mm[Hg] - Sitting 119.00 mm[Hg] - Sitting 98.40 Forehead Scan 96.00 % 57.00/ min 18.00/min 73045 210 78501 9 107.00 mg/dL 56248 210 54112 7 108.00 mg/dL 99790 210 63282 8 97.00 Tympanic 45253 210 11201 2 126.00 mg/dL 42049 210 98401 0 126.00 mg/dL 47823 210 35259 9 126.00 mg/dL 76393 210 52417 2 154.00 mg/dL 32592 211 42481 0 53.00 mm[Hg] - Lying Down 104.00 mm[Hg] - Lying Down 98.90 Tympanic 93.00 % 60.00/ min 18.00/min 57578 211 80619 0 62.00 mm[Hg] - Sitting 72.00 mm[Hg] - Sitting 98.30 Tympanic 96.00 % 62.00/ min 18.00/min 06670 211 67590 9 136.00 mg/dL 90541 211 02510 8 131.00 mg/dL 25770 211 05553 3 118.00 mg/dL 94908 211 49236 9 130.00 mg/dL 56299 212 61059 7 46.00 mm[Hg] - Sitting 101.00 mm[Hg] - Sitting 98.50 Tympanic 96.00 % 62.00/ min 20.00/min 43827 212 90556 1 110.00 mg/dL 09157 212 34606 8 110.00 mg/dL 77516 212 92096 8 152.00 mg/dL 94034 212 55333 0 120.00 mg/dL 46930 213 66289 9 123.00 mg/dL 213 81710 9 123.00 mg/dL 213 25764 5 79715 213 23687 2 Immunizations Vaccine Date Status Influenza 08/29/2024 Completed (PCV13)Pneumococcal 08/29/2024 Completed
--- OUTSIDE RECORDS SUMMARY | 2024-09-08 22:02 | External Medical Summary | Continuity Of Care Document ---
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 unit/0.1 mL intradermal injection solution [Tuberculin PPD] 0.1mL Intradermal 1 time For PPD 2nd Step Give 2nd Step PPD Day 1 and Read results Day 3 (schedule 7 days after 1st READ) 0.1mL 09/10 Active 2023 86939 36932 0 1 time Intrad ermal False Tylenol 325 mg tablet 2 tabs By Mouth Every 4 hours as needed For Pain DO NOT EXCEED 3000 MG APAP/24 Hours 2 tabs 09/02 Inactiv e 2023 03121 47445 0 Every 4 hours as needed By Mouth False Tylenol 325 mg tablet 2 tabs By Mouth Every 4 hours as needed For Fever >100 DO NOT EXCEED 3000 MG APAP/24 Hours 2 tabs 2023 0000 /0000 Active 2023 61495 22265 0 Every 4 hours as needed By Mouth False Dulcolax (bisacodyl) 10 mg rectal suppository One Suppository per rectum PRN if Milk of Magnisia ineffective. Give on day 5 of no BM 1 sup 2023 Active 2023 92416 60617 1 Daily as needed Rectal False Fleet Enema 19 gram-7 gram/118 mL Administer per rectum PRN one time if dulcolax suppository not effective. Give on day 6 of no BM 1 2023 Active 2023 18843 16476 6 Daily as needed Rectal False Dextrose 50 % in water (D50W) intravenous solution [generic] Dextrose 50% jose manuel 20-50 ml (slow push) Intravenous if Glucagon not effective after 15 minutes. CALL 911 for ED Evaluation. 50% jose manuel 2023 Active 2023 49666 03806 9 Intrav enous False Glucagon (HCl) Emergency Kit 1 mg solution for injection Administer Glucagon 1 mg Intramuscular if 15 minutes after GLucose Gel is administered Glucose remains less than 70 1 mg 2023 Active 2023 13084 24116 2 Intram uscula r False Glucose Gel 40 % oral gel [Dextrose] PRN If resident is unable to swallow (with or without symptoms) and Glucose results less than 70 give GLucose 40% Gel 1 tube orally - Recheck Glucose 15 minutes after administratio n. 1 tube 2023 Active 2023 34977 99382 8 By Mouth False Santyl 250 unit/gram topical ointment dose Topical Once daily to wound bed daily with wound care For Unstageable Pressure injury dose 2023 Active 2023 06982 62789 0 Once daily Topica l False Fluconazole 200 mg tablet [generic] 1 tab By Mouth Once daily For Yeast infection 1 tab 09/01 Inactiv e 2023 66577 01077 3 Once daily By Mouth False Phenazopyri dine 200 mg tablet [generic] 1 tab By Mouth Three times daily as needed For pain 1 tab 09/02 Inactiv e 2023 30889 08454 1 Three times daily as needed By Mouth False Aspirin 81 mg tablet,zaki yed release [generic] 1 tab By Mouth At bedtime For CAD 1 tab 2023 Active 2023 42103 06812 9 At bedtime By Mouth False BD AutoShield Duo Pen Needle 30 gauge x 3/16in 1 4 times a day subcutaneous 4 times a day change needle wqith every use of insulin For Type 2 diabetes Mellitus 1 2023 Active 2023 58916 53909 5 4 times a day Subcut aneous False Albuterol sulfate HFA 90 mcg/actuati on aerosol inhaler [generic] 2 puff Inhalation Every 6 hours as needed For SOB or wheezing 2 puff 2023 Active 2023 13569 05646 2 Every 6 hours as needed Inhala tion False Tramadol 50 mg tablet [generic] 1 tab By Mouth Every 6 hours as needed For pain 1 tab 09/02 Inactiv e 2023 43693 53130 0 Every 6 hours as needed By Mouth False Docusate sodium 100 mg tablet [generic] 1 tab Daily as needed For constipation 1 tab 2023 Active 2023 51121 69798 1 Daily as needed By Mouth False Senna Laxative 8.6 mg tablet 1 tab By Mouth Daily as needed For constipation 1 tab 2023 Active 2023 90005 11319 0 Daily as needed By Mouth False Potassium chloride ER 20 mEq tablet,exte nded release [generic] 1 tab By Mouth Twice daily For hypokalemia 1 tab 2023 Active 2023 07416 09982 1 Twice daily By Mouth False Acyclovir 400 mg tablet [generic] 1 tab By Mouth Twice daily For preventative B-cell lymphoma 1 tab 2023 Active 2023 36648 02855 1 Twice daily By Mouth False Pantoprazol e 40 mg tablet,zaki yed release [generic] 1 tab By Mouth Once daily For gerd 1 tab 09/02 Inactiv e 2023 96352 93648 0 Once daily By Mouth False Metformin 1,000 mg tablet [generic] 1 tab By Mouth Twice daily For DM2 1 tab 09/02 Inactiv e 2023 15373 00064 0 Twice daily By Mouth False Rosuvastati n 20 mg tablet [generic] 1 tab By Mouth At bedtime For hyperlipdemia 1 tab 2023 Active 2023 72619 71756 0 At bedtime By Mouth False Polyethylen e glycol 3350 (bulk) powder [generic] 17 g By Mouth Daily as needed For constipation 17 g 2023 Active 2023 74972 55506 1 Daily as needed By Mouth False Prochlorper azine maleate 10 mg tablet [generic] 1 tab By Mouth Every 6 hours as needed For nausea 1 tab 09/02 Inactiv e 2023 84021 65413 1 Every 6 hours as needed By Mouth False Bisacodyl 5 mg tablet,zaki yed release [generic] 1 tab By Mouth Daily as needed For constipation 1 tab 2023 Active 2023 91197 40446 1 Daily as needed By Mouth False Lorazepam 0.5 mg tablet [generic] 1 tab By Mouth At bedtime as needed For anxiety 1 tab 09/02 Inactiv e 2023 52768 19351 1 At bedtime as needed By Mouth False Insulin glargine (U-300) conc. 300 unit/mL (3 mL) subcutaneou s pen [generic] 40 units Subcutaneous At bedtime For DM2 40 units 09/02 Inactiv e 2023 17024 21290 2 At bedtime Subcut aneous False Jardiance 10 mg tablet 1 tab By Mouth Once daily For DM2 1 tab 2023 Active 2023 98276 01571 7 Once daily By Mouth False Insulin [...] time order For diabetes 2023 Active 2023 62879 10051 5 3 times a day Subcut aneous False Sulfamethox azole 800 mg-trimetho prim 160 mg tablet [generic] 1 tab By Mouth 3 times a week on sunday, sunday, sunday For UTI 1 tab 09/02 Inactiv e 2023 77859 35505 1 3 times a week By Mouth False Gemtesa 75 mg tablet 75mg By Mouth Once daily For urinary management 75mg 2023 Active 2023 32550 44249 7 Once daily By Mouth False Losartan 25 mg tablet [generic] 25mg By Mouth Once daily For HTN 25mg 2023 Active 2023 34286 80885 9 Once daily By Mouth False Ozempic 1 mg/dose (4 mg/3 mL) subcutaneou s pen injector 1mg Subcutaneous Every week For diabetes 1mg 09/04 Inactiv e 2023 64291 36448 3 Every week Subcut aneous False Carvedilol 12.5 mg tablet [generic] 12.5mg By Mouth Twice daily For CAD 12.5mg 2023 Active 2023 71514 10925 0 Twice daily By Mouth False Loratadine 10 mg tablet [generic] 10 By Mouth Once daily As Needed For CHEMO 10 09/02 Inactiv e 2023 14111 80760 9 Once daily By Mouth False Loperamide 2 mg tablet [generic] 2mg By Mouth Every 6 hours As Needed For diarrhea 2mg 2023 Active 2023 03443 14989 6 Every 6 hours By Mouth False Spironolact one 25 mg tablet [generic] 25mg By Mouth Once daily For HTN 25mg 09/04 Inactiv e 2023 12968 89252 1 Once daily By Mouth False Lasix 40 mg tablet 40 By Mouth Once daily For htn 40 09/04 Inactiv e 2023 99588 47378 1 Once daily By Mouth False Ondansetron HCl 8 mg tablet [generic] 8mg By Mouth Every 8 hours For Encephalopath y 8mg 09/02 Inactiv e 2023 93398 22153 0 Every 8 hours By Mouth False Levofloxaci n 750 mg tablet [generic] 750 mg By Mouth Once daily For UTI 750 mg 09/02 Inactiv e 2023 87354 73881 6 Once daily By Mouth False Miralax 17 gram/dose oral powder 17grams By Mouth Once daily For constipation 17grams 09/03 Inactiv e 2023 15367 07399 0 Once daily By Mouth False Sulfamethox azole 800 mg-trimetho prim 160 mg tablet [generic] 09/02 Inactiv e 2023 00166 50203 1 Sulfamethox azole 800 mg-trimetho prim 160 mg tablet [generic] 1 tab By Mouth 3 times a week on sunday, sunday, sunday For UTI 1 tab 09/02 Inactiv e 2023 04607 45868 1 3 times a week By Mouth False Sulfamethox azole 800 mg-trimetho prim 160 mg tablet [generic] 09/02 Inactiv e 2023 96781 21836 1 Sulfamethox azole 800 mg-trimetho prim 160 mg tablet [generic] 1 tab By Mouth 3 times a week on sunday, sunday, sunday For UTI 1 tab 2023 00/00 /0000 Active 2023 86234 03318 1 3 times a week By Mouth False Polyethylen e glycol 3350 17 gram/dose oral powder [generic] 17 grams By Mouth Once daily For contispation 17 grams 09/04 Inactiv e 2023 54176 39210 4 Once daily By Mouth False Posaconazol e 100 mg tablet,zaki yed release [generic] 300mg By Mouth Once daily For Antifungal 300mg 09/18 Active 2023 38437 08897 0 Once daily By Mouth False Senna 8.6 mg tablet 2 tabs By Mouth Twice daily For contispation 2 tabs 2023 Active 2023 36193 74522 1 Twice daily By Mouth False ProSource No Carb 15 gram-60 kcal/30 mL oral liquid 30 ml By Mouth Once daily For Wound - Note total ml consumed 30 ml 2023 Active 2023 47104 55046 5 Once daily By Mouth False Levofloxaci n 500 mg tablet [generic] 500 mg By Mouth Once daily For Prophylaxis 500 mg 2023 Active 2023 71995 64954 8 Once daily By Mouth False Mirtazapine 7.5 mg tablet [generic] 7.5 mg By Mouth Once daily For Depression 7.5 mg 2023 Active 2023 49188 00128 5 Once daily By Mouth False Prochlorper azine maleate 10 mg tablet [generic] 09/02 Inactiv e 2023 37897 40476 1 Prochlorper azine maleate 10 mg tablet [generic] 1 tab By Mouth Every 6 hours as needed For nausea 1 tab 09/16 Active 2023 60331 16177 1 Every 6 hours as needed By Mouth False Ondansetron HCl 8 mg tablet [generic] 09/02 Inactiv e 2023 30398 72772 0 Ondansetron HCl 8 mg tablet [generic] 8mg By Mouth Every 8 hours For Nausea 8mg 2023 Active 2023 53812 60705 0 Every 8 hours By Mouth False Lorazepam 0.5 mg tablet [generic] 09/02 Inactiv e 2023 67150 39533 1 Lorazepam 0.5 mg tablet [generic] 1 tab By Mouth At bedtime as needed For anxiety 1 tab 09/02 Inactiv e 2023 95690 18417 1 At bedtime as needed By Mouth False Loratadine 10 mg tablet [generic] 09/02 Inactiv e 2023 73276 60593 9 Loratadine 10 mg tablet [generic] 10 By Mouth Once daily As Needed For when receiving chemotherapy 10 202300 Active 2023 33615 53518 9 Once daily By Mouth False Tramadol 50 mg tablet [generic] 09/02 Inactiv e 2023 50787 17651 0 Tramadol 50 mg tablet [generic] 1 tab By Mouth Every 6 hours as needed For moderate/mynor re pain 1 tab 09/02 Inactiv e 2023 57162 40135 0 Every 6 hours as needed By Mouth False Phenazopyri dine 200 mg tablet [generic] 09/02 Inactiv e 2023 90755 72286 1 Phenazopyri dine 200 mg tablet [generic] 1 tab By Mouth Three times daily as needed For bladder pain 1 tab 202300 / Active 2023 95201 51707 1 Three times daily as needed By Mouth False Tylenol 325 mg tablet 09/02 Inactiv e 2023 41319 55127 0 Tylenol 325 mg tablet 2 tabs By Mouth Every 4 hours as needed For DO NOT EXCEED 3000 MG APAP/24 Hours For mild Pain 2 tabs 202300 /0000 Active 2023 49549 05600 0 Every 4 hours as needed By Mouth False Metformin 1,000 mg tablet [generic] 09/02 Inactiv e 2023 63535 99822 0 Metformin 1,000 mg tablet [generic] 1 tab By Mouth Twice daily with meals For DM2 1 tab 2023 Active 2023 53057 09919 0 Twice daily By Mouth False Pantoprazol e 40 mg tablet,zaki yed release [generic] 09/02 Inactiv e 2023 95813 83487 0 Pantoprazol e 40 mg tablet,zaki yed release [generic] 1 tab By Mouth Once daily For gerd 1 tab 2023 Active 2023 39051 41631 0 Once daily By Mouth False Tramadol 50 mg tablet [generic] 09/02 Inactiv e 2023 91018 47714 0 Tramadol 50 mg tablet [generic] 1 tab By Mouth Every 6 hours as needed For moderate/mynor re pain 1 tab 2023 Active 2023 53988 15004 0 Every 6 hours as needed By Mouth False Lorazepam 0.5 mg tablet [generic] 09/02 Inactiv e 2023 32656 89765 1 Lorazepam 0.5 mg tablet [generic] 1 tab By Mouth At bedtime as needed For anxiety 1 tab 2023 Active 2023 14808 82161 1 At bedtime as needed By Mouth False Polyethylen e glycol 3350 17 gram/dose oral powder [generic] 17 grams By Mouth Daily as needed PRN For order changed to PRN daily forcontispati on 17 grams 2023 Active 2023 72116 04754 4 Daily as needed By Mouth False Spironolact one 25 mg tablet [generic] 12.5 mg By Mouth Once daily For ESSENTIAL (PRIMARY) HYPERTENSION 12.5 mg 2023 Active 2023 81215 29711 1 Once daily By Mouth I10. False Furosemide 20 mg tablet [generic] 20 mg By Mouth Once daily For UNSPECIFIED SYSTOLIC (CONGESTIVE) HEART FAILURE 20 mg 2023 Active 2023 21998 88911 0 Once daily By Mouth I50.20 False [...] Active I25.10 Atherosclerotic hear t disease of [place] coronary artery without angina pectoris 08/29/2024 Active [...] weight Temperature SpO2 Blood Sugar Pulse Respirations 91011 206 92211 1 64.00 mm[Hg] - Sitting 109.00 mm[Hg] - Sitting 98.70 Tympanic 90.00 % 64.00/ min 16.00/min 94449 206 65731 0 178.60 NI 07488 206 29680 6 63 NI 24067 206 94969 4 72.00 mm[Hg] - Sitting 121.00 mm[Hg] - Sitting 100.40 Forehead Scan 92.00 % 60.00/ min 18.00/min 37573 206 28148 8 72.00 mm[Hg] - Sitting 121.00 mm[Hg] - Sitting 100.40 Tympanic 14040 206 80577 9 60.00/ min 18.00/min 03237 206 69311 5 148.00 mg/dL 22627 207 37903 7 63.00 mm[Hg] - Sitting 122.00 mm[Hg] - Sitting 100.40 Tympanic 60.00/ min 18.00/min 20389 207 85673 7 55.00 mm[Hg] - Sitting 104.00 mm[Hg] - Sitting 98.40 Forehead Scan 96.00 % 66.00/ min 18.00/min 48840 207 02681 5 120.00 mg/dL 39395 207 55254 6 101.00 mg/dL 08501 207 32227 8 63.00 mm[Hg] - Sitting 122.00 mm[Hg] - Sitting 00623 207 36704 7 134.00 mg/dL 37163 207 44726 9 134.00 mg/dL 97227 207 55091 0 127.00 mg/dL 76131 207 86730 7 127.00 mg/dL 67346 207 96784 9 122.00 mg/dL 58375 208 66690 9 62.00 mm[Hg] - Sitting 106.00 mm[Hg] - Sitting 98.60 Tympanic 66.00/ min 18.00/min 74468 208 26841 3 117.00 mg/dL 17251 208 04568 2 155.00 mg/dL 98426 208 18704 6 98.60 Tympanic 25943 208 25570 1 123.00 mg/dL 11098 208 72401 2 123.00 mg/dL 63170 208 44849 4 62.00 mm[Hg] - Sitting 106.00 mm[Hg] - Sitting 62471 208 54554 7 123.00 mg/dL 23044 208 59530 1 123.00 mg/dL 65881 208 72106 7 136.00 mg/dL 55876 209 60322 0 60.00 mm[Hg] - Sitting 113.00 mm[Hg] - Sitting 98.50 Forehead Scan 98.00 % 61.00/ min 16.00/min 87736 209 19115 7 114.00 mg/dL 19858 209 99514 7 111.00 mg/dL 80808 209 09822 0 98.00 Tympanic 38408 209 83799 2 68.00 mm[Hg] - Sitting 118.00 mm[Hg] - Sitting 46287 209 66287 5 156.00 mg/dL 98843 209 18265 4 156.00 mg/dL 27761 209 78131 5 132.00 mg/dL 37518 209 69112 4 132.00 mg/dL 23313 209 61918 0 136.00 mg/dL 16203 210 85135 0 52.00 mm[Hg] - Sitting 119.00 mm[Hg] - Sitting 98.40 Forehead Scan 96.00 % 57.00/ min 18.00/min 57687 210 55477 9 107.00 mg/dL 54365 210 11270 7 108.00 mg/dL 07196 210 98441 8 97.00 Tympanic 39506 210 25475 2 126.00 mg/dL 54926 210 73453 0 126.00 mg/dL 49033 210 69010 9 126.00 mg/dL 61832 210 75930 2 154.00 mg/dL 16088 211 05924 0 53.00 mm[Hg] - Lying Down 104.00 mm[Hg] - Lying Down 98.90 Tympanic 93.00 % 60.00/ min 18.00/min 59569 211 24156 0 62.00 mm[Hg] - Sitting 72.00 mm[Hg] - Sitting 98.30 Tympanic 96.00 % 62.00/ min 18.00/min 49051 211 37673 9 136.00 mg/dL 02453 211 14279 8 131.00 mg/dL 82086 211 73439 3 118.00 mg/dL 66866 211 94125 9 130.00 mg/dL 82849 212 54041 7 46.00 mm[Hg] - Sitting 101.00 mm[Hg] - Sitting 98.50 Tympanic 96.00 % 62.00/ min 20.00/min 99176 212 96393 1 110.00 mg/dL 09143 212 36639 8 110.00 mg/dL 26868 212 43597 8 152.00 mg/dL 40922 212 74785 0 120.00 mg/dL 45348 213 25092 9 123.00 mg/dL 213 76900 9 123.00 mg/dL 213 11605 5 44666 213 46491 2 Immunizations Vaccine Date Status Influenza 08/29/2024 Completed (PCV13)Pneumococcal 08/29/2024 Completed
[2024-09-08] MEDS ORDERED: STAT IV Infusion **Titration per Protocol STA (22:11)
--- NOTE | 2024-09-08 22:26 | Communication Note ---
Date of Service: September 08, 2024 Received message from nursing around 1940 that patient's blood pressure was 84/46. Patient is asymptomatic. There were IV fluids started and running. Patient did just receive 1 unit of blood. Ordered H&H, magnesium, CMP, troponin, lactate. -Troponin of 311 which is an increase from 188 at 1540. Most likely demand ischemia. -Hemoglobin of 7.6. Due to patient's symptoms and her cardiac history started another unit of blood. -Lactate of 1.9 which is decreased from 2.7. Patient blood pressure continue to decrease. 70/40 with a MAP of 53. Due to patient's heart failure with reduced ejection fraction given a 500 cc bolus of NSS. After completing a bolus patient blood pressure still remains low at 75/45. Reassessed patient at bedside with attending physician as well as ICU provider. Manual blood pressure obtained and continues to be systolically in the 70s. Patient is asymptomatic. Though is not able to maintain blood pressure. Cortisol random ordered, VBG ordered, daptomycin started. Discussed with attending physician as well as ICU provider. It was determined to transfer the patient to ICU and consult operations label clerk for the possibility of needing vasopressors. Please refer to critical care consultation for further management of patient.
[2024-09-08] MEDS: NOREPINEPHRINE/D5W 4 MG/250 ML PLCT IV SCH (22:50)
[2024-09-08] MEDS: DAPTOmycin 375 MG in SYRINGE 0 ML IV SCH (22:50)
[2024-09-08 23:22] LABS: HCO3 VBG 21 mmol/L; Oxygen Saturation VBG < 60.0 %; PCO2 VBG 37 mmHg (38-50); PO2 VBG 21 mmHg; pH VBG 7.36 (7.36-7.41)
--- NOTE | 2024-09-08 23:48 | Critical Care Consultation ---
Date of Consultation September 08, 2024 Assessment & Plan (1) Septic shock: Reason Critically Ill: Patient is a 73-year-old female with complex past medical history significant for B-cell lymphoma, aortic stenosis (TAVR), anemia with routine transfusions, DM type II, CHF, HTN, HLD, pacemaker, GI bleeding who presents to the ICU as a transfer from floor after patient was found to be hypotensive requiring vasopressor support. Neuro - [facility] ICU: Negative Cardiac - Shocksuspect this is most likely septic but may be mixed etiology with underlying anemia. Currently receiving blood transfusion, and vasopressor support with Levophed drip - Borderline random cortisol of 23. Will start on 50 mg hydrocortisone every 8 hours for now - History of valvular heart failure/severe aortic stenosis, status post TAVR. Will repeat TTE this admission -Hold Lasix for now - See ID for treatment of sepsis below - Continue fluid resuscitation to maintain euvolemia. Maintain hemoglobin greater than 7 - Did receive Coreg this afternoon. Hold antihypertensives for now - Wean vasopressors as tolerated History of atrial flutter/third-degree heart blockstatus post pacemaker. Patient not anticoagulated with Eliquis due to history of GI bleeding. Antihypertensives on hold. Continuous monitoring on telemetry Respiratory - No history of pulmonary diseasecurrently maintaining oxygen saturations on room air without labored breathing. Chest x-ray without pulmonary infiltrationor consolidation. Continuous monitoring pulse ox for now GI - N.p.o. for now RENAL/LYTES - AKIpatient creatinine 1.88 with previous baseline of 1.35 on last admission. Likely due to ATN in setting of hypotension/sepsis/dehydration - Continue with fluid resuscitation, blood transfusions, and vasopressor support as needed to maintain maps greater than 65 and establish euvolemia -Avoid nephrotoxins and renally adjust medications -Lasix, lisinopril, spironolactone, potassium on hold - Mildly hyperkalemic, No EKG changes. Hold potassium. Will continue to monitor with BMPs for now - Foleystrict I's and O's ENDO - DM type IIhold metformin in favor of sliding scale/basal bolus. ICU hyperglycemic protocol HEME - Pancytopeniapatient with chronic bone marrow suppression due to B-cell lymphoma. States that she last received chemotherapy in the spring and last radiation on this past Sunday. She receives scheduled transfusions with last unit of RBCs on Sunday - Hemoglobin on admission 6.7, currently receiving second unit RBCs - Platelet count at 48,000, consistent with previous admissions - No current evidence of bleeding. No signs of retroperitoneal or intra- abdominal bleeding on CT abdomen and pelvis. Denies tarry stools or bloody bowel movements. - Repeat CBC posttransfusion, trend H&H. Transfuse as indicated Heme-onc B-cell lymphomaPatient previously underwent R-CHOP 2018 and was receiving radiation with last radiation treatment last Sunday. - 06/25/2024 PET scanfindings compatible with mixed treatment response. Improvement of the previously noted disease within the neck chest and majority of the abdomen and pelvis, however progressive disease within the terminal ileum and cecum demonstrate invasion/involvement of the right rectus sheath musculature. Positive treatment response of the skeletal disease - consult oncology ID - Sepsis Highly suspect urinary source although patient is immunocompromised. WBC 3.85, chronically suppressed. Mildly elevated procalcitonin of 0.5 and elevated lactate on admission - No infiltrate seen on chest x-ray, and CT abdomen and pelvis unremarkable for infectious process -Urinalysis concerning for UTI. Urine culture and blood cultures currently pending -Nasal MRSA currently pending - Positive for COVID PCR on 08/20/2024, Did not undergo treatment - Patient takes Bactrim 3 times weekly in the outpatient - Will start on Zosyn and daptomycin for now LINES/IV ACCESS - Right subclavian port, peripheral IVs DVT PROPHYLAXIS - SCDs, hold anticoagulation as patient is currently anemic receiving transfusions with thrombocytopenia as well I have personally spent 68 minutes of critical care time in the direct management of this patient. This is a life/limb threatening event. This includes time spent evaluating patient, direct bedside care, chart review, placing orders, interpretation of diagnostic studies, discussion with consultants, patient, and family members, as well as other required patient management activities. This time is exclusive of all separately billable procedures, and teaching time and separate from and in addition to any other critical care service time. Thank you for allowing us to participate in the care of this patient. Please refer to my attending physician's documentation for any further recommendations. (2) Pancytopenia: (3) Acute UTI: (4) B-cell lymphoblastic leukemia: (5) Cardiac pacemaker: (6) Diastolic congestive heart failure, NYHA class 2: (7) Diabetes mellitus, type II, insulin dependent: (8) Hyperlipidemia: Supervising Physician Co-Signing Physician Notes Patient seen and examined. EMR reviewed. Discussed with critical care HIEU and agree with assessment plan as noted. Please for my progress note from 09/09/2024 for additional details History of Present Illness Attending Physician: Rojelio Egan DO History of Present Illness Patient is a 73-year-old female with complex past medical history including B- cell lymphoma (treated with R-CHOP) and underwent last round of radiation on last Sunday, anemia (receives routine transfusions), aortic stenosis (s/p TAVR), DM type II, CHF, HTN, HLD, atrial flutter, third-degree heart block (s/p pacemaker), GI bleed who presented to the emergency department from [facility] earlier today with complaints of weakness, Poor appetite and p.o. intake. She had a blood transfusion on Sunday. She was found to be anemic with hemoglobin of 6.7 in the emergency department and was given 1 unit RBCs and admitted to PCU. She was also started on broad-spectrum antibiotics. I was notified by the patient's primary team that she was now hypotensive despite fluid resuscitation and blood transfusions. She had a mildly elevated procalcitonin of 0.5 and elevated lactate which cleared on the repeat. She remains pancytopenic with past labs, but is not currently neutropenic. She does have a right sided port. She states that she gets frequent UTIs as well, And urinalysis is concerning for UTI with urine culture pending. She is now being transferred to the ICU with concern for septic shock requiring vasopressor support. Upon evaluation the patient is alert and oriented, and without acute distress despite being hypotensive with systolic blood pressures in the 80s and maps in the low 50s.She currently denies any headache, dizziness, syncopal events, recent cough or congestion, fevers, chest pain or shortness of breath, palpitations, abdominal pain, nausea vomiting. She does report episodes of diarrhea a few weeks ago when she was diagnosed with COVID. She claims she was not on oxygen at the time. She is currently on room air without labored breathing. She does report burning with urination earlier today. Allergies Allergy/AdvReac Type Severity Reaction Status Date / Time cat dander Allergy Intermediate ITCHY Verified 09/05/24 15:45 EYES, SNEEZING, CONGESTION lisinopril Allergy Mild Cough Verified 09/05/24 15:45 Sulfa (Sulfonamide AdvReac Intermediate NAUSEA Verified 09/05/24 15:45 Antibiotics) codeine AdvReac Mild Vomiting Verified 09/05/24 15:45 Home Medications Medication Instructions Recorded Confirmed Type aspirin 81 mg tablet,delayed 81 mg PO HS 10/18/18 09/05/24 History release (Ecotrin Low Strength) pen needle, diabetic 31 gauge x #100 ea 05/15/22 08/21/24 Rx 3/16" (BD Ultra-Fine Mini Pen Needle) albuterol sulfate 90 mcg/actuation 2 puff inhalation Q6H PRN 02/26/23 09/05/24 Rx aerosol inhaler shortness of breath or wheezing #8.5 grams blood-glucose meter,continuous #3 ea 05/01/23 08/21/24 Rx (Dexcom G7 Mate First) blood-glucose sensor (Dexcom G7 #9 ea 05/01/23 08/21/24 Rx Sensor device) tramadol 50 mg tablet 50 mg PO Q6H PRN pain #20 tabs 03/11/24 09/05/24 Rx docusate sodium 100 mg capsule 100 mg PO DAILY PRN Constipation 04/02/24 09/05/24 History (Colace) polyethylene glycol 3350 17 17 g PO DAILY PRN constipation 04/16/24 09/05/24 Rx gram/dose oral powder (Miralax) #119 grams bisacodyl 5 mg tablet,delayed 5 mg PO DAILY PRN Constipation 05/07/24 09/05/24 History release prochlorperazine maleate 10 mg 10 mg PO Q6H PRN Nausea 05/07/24 09/05/24 History tablet (Compazine) lorazepam 0.5 mg tablet 0.5 mg PO HS PRN anxiety #20 tabs 05/08/24 09/05/24 Rx empagliflozin 10 mg tablet 10 mg PO QAM 05/12/24 09/05/24 History (Jardiance) insulin aspart U-100 100 unit/mL 0 unit subcut TID PRN if premeal 05/12/24 09/05/24 History (3 mL) subcutaneous pen (Novolog blood sugars greater than 250 FlexPen U-100 Insulin aspart) sennosides 8.6 mg tablet 8.6 mg PO DAILY PRN Diarrhea 05/12/24 09/05/24 History miscellaneous medical supply #1 ea 05/13/24 08/21/24 Rx potassium chloride 20 mEq 20 meq PO BID #60 tabs 05/17/24 09/05/24 Rx tablet,extended release(part/cryst) acyclovir 400 mg tablet 400 mg PO BID #60 tabs 06/06/24 09/05/24 Rx metformin 1,000 mg tablet 1,000 mg PO BID #180 tabs 06/16/24 09/05/24 Rx levofloxacin 750 mg tablet 750 mg PO DAILY 07/01/24 09/05/24 History losartan 25 mg tablet 25 mg PO QAM #90 tabs 07/01/24 09/05/24 Rx sulfamethoxazole-trimethoprim 1 tab PO .3XWEEKLY 07/01/24 09/05/24 History [Bactrim] semaglutide 1 mg/dose (4 mg/3 mL) 1 mg (0.75 mL) subcut WK #3 mL 07/03/24 09/05/24 Rx subcutaneous pen injector (Ozempic) carvedilol 12.5 mg tablet 12.5 mg PO BID #180 tabs 07/15/24 09/05/24 Rx loratadine 10 mg tablet (Claritin) 10 mg PO DAILY PRN chemo 07/16/24 09/05/24 History loperamide 2 mg capsule 2 mg PO Q6H PRN Diarrhea 08/12/24 09/05/24 History furosemide 40 mg tablet 40 mg PO DAILY 08/18/24 09/05/24 History spironolactone 25 mg tablet 25 mg PO DAILY #30 tabs 08/18/24 09/05/24 Rx ondansetron 8 mg disintegrating 8 mg PO Q8H Encephalopathy #0 tabs 08/29/24 09/05/24 Rx tablet phenazopyridine 200 mg tablet 200 mg PO TID PRN pain 7 days #21 08/29/24 09/05/24 Rx (Pyridium) tabs vibegron 75 mg tablet (Gemtesa) 75 mg PO DAILY 30 days #30 tabs 08/29/24 09/05/24 Rx pantoprazole 40 mg tablet,delayed See Rx Instructions .Route 09/04/24 09/05/24 Rx release .COMPLEX #30 tabs rosuvastatin 20 mg tablet 20 mg PO HS #90 tabs 09/08/24 Rx Patient History Medical History Overflow diarrhea Dysuria Low hemoglobin Diarrhea Acute UTI COVID-19 Hypokalemia HFrEF (heart failure with reduced ejection fraction) Generalized weakness Type 2 diabetes mellitus Non-Hodgkin's lymphoma B-cell lymphoma TREATMENT FOR 1 YEAR *R-CHOP (LAST TX 2018) Gastritis due to bacteria h.pylori positive gastritis; following with GI Tricuspid regurgitation mild per 10/02/23 ECHO History of GI bleed Eliquis on hold as result; GI currently working up; had EGD 12/2023 Coronary artery disease severe RCA stenosis per cath 07/05/22; med mgmt recommended Anemia has had eliquis on hold since 12/05/23 - pt has been receiving iron infusion and 3 blood transfusions since November 2023 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 Aortic stenosis mod-severe per 10/02/23 ECHO LVH (left ventricular hypertrophy) MAX (obstructive sleep apnea) cpap nightly Hyperlipidemia Venous insufficiency Mitral regurgitation mod-severe per 10/02/23 ECHO HTN (hypertension) Chronic cystitis Hx of sarcoidosis follows with Chronic kidney disease (CKD), stage III (moderate) Vitamin D deficiency Diastolic congestive heart failure, NYHA class 2 follows with heart failure clinic Unspecified atrial fibrillation cardioversion 09/2023 [facility] Atrial flutter cardioversion 09/2023 [facility] History of ventricular tachycardia 7 sec run of NSVT per 01/13/24 pacer report. per Cardio comments: "continue to monitor" History of third degree heart block reason for pacemaker Abnormal findings on esophagogastroduodenoscopy (EGD) 12/2023: h.pylori gastritis, hernia History of cardioversion 09/2023 at [facility] - successful. History of COVID-12 March 2021 - cold symptoms. no current issues Hx of cancer of uterus s/p hyster 2006 History of B-cell lymphoma treatment for 1 year in 2019 *R-CHOP. Recurrence noted in LN on 03/10/24 bronchoscopy Diabetes mellitus, type 2 IDDM Neuropathy Pacemaker Medtronic pacer placed 11/2021 for complete heart block. follows with [facility], last checked 12/2023 Mediastinal lymphadenopathy Surgical History Port-A-Cath in place (04/02/24) Insertion Access Port with Fluoroscopy(Not Applicable) - Eddie Pineda DO, FACS Status post PICC central line placement Right IJ port placed for chemo 2019 (subsequently removed) S/P trigger finger release right hand History of cardiac catheterization 06/2022 [facility] - sob - no stents History of removal of Port-a-Cath Remove Access Port(Right) - Eddie Pineda DO, FACS [id number] H/O breast biopsy benign H/O total hysterectomy MAYITO and BSO 2006 History of tooth extraction History of cataract surgery bilateral History of bronchoscopy Status post placement of cardiac pacemaker 11/28/21 H/O excision of mass left neck (lymphoma) History of total knee arthroplasty bilateral History of tonsillectomy and adenoidectomy H/O colonoscopy Family History Grandfather (Maternal) Family history of diabetes mellitus Family/Other Family history of diabetes mellitus Father Myocardial infarction Family history of esophageal cancer Other No family history of adverse response to anesthesia Denies family history of Ovarian cancer Prostate cancer Breast cancer Colorectal cancer Social History Smoking Status: Never smoker Second Hand Exposure: Yes (hx); Do You Dip or Chew Tobacco: No; Hx Alcohol Use: No Hx Substance Use: No Preferred Language: Hebrew Communication Ability: Effective Visual Impairment: No Limitations Hearing Ability: Normal 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 Required: No Beliefs That Will Affect Care: None marital status: Current Living Situation: Alone, Personal Care Facility and Rehab Current Living Situation Comment: Came from [facility] current occupational status: employed current occupation: [employer] How many Children do You have: 1 Feels Safe at Home: Yes Safety Concerns: Feels Safe At This Time Childhood Exposure to Second-Hand Smoke: Yes Diet: regular caffeine: Yes during the past year weight has: remained stable Dental Care, Regularly: Yes Physical Activity Frequency: Does not Exercise Seatbelt Use: always Sunscreen Use: Yes Assistive Devices: Cane, Glasses and Walker Review of Systems Review of Systems: All systems reviewed & are unremarkable except as noted in HPI & below Physical Exam Constitutional: cooperative and comfortable Eyes: PERRL, conjunctivae normal, anicteric sclerae ENMT: external ear and nose normal, oropharynx normal Neck: trachea midline, no thyromegaly Respiratory: normal respiratory effort, lungs clear to auscultation Cardiovascular: Heart Sounds: + click Extremities: no edema Paced rhythm Gastrointestinal (Abdomen): normal bowel sounds, soft, nontender, no hepatosplenomegaly Musculoskeletal: no cyanosis or clubbing, extremities motor strength 5/5 Skin: Superficial pressure ulcer to the sacrum, no other wounds or rashes noted on exam Neurologic: PERRL, EOMI, accommodation nl, no face palsy, no dysarthria Psychiatric: A+Ox3, euthymic affect Results & Data Results & Data Vital Signs (Past 12 Hours) Vital Signs Temp Pulse Pulse Resp BP BP Pulse Ox 09/08/24 21:50 37.2 C 60 81/49 L 97 09/08/24 21:35 60 18 80/44 L 98 09/08/24 21:16 36.8 C 61 16 84/67 L 98 09/08/24 19:46 90/59 L 09/08/24 19:11 36.8 C 61 16 84/46 L 97 09/08/24 19:03 36.5 C 64 18 102/64 09/08/24 18:00 36.8 C 62 18 102/63 09/08/24 17:02 37.3 C 18 102/65 99 09/08/24 17:02 09/08/24 17:00 09/08/24 17:00 37.2 C 18 101/63 99 09/08/24 17:00 37.3 C 65 18 102/65 99 09/08/24 16:30 37.3 C 66 18 101/63 09/08/24 16:15 36.6 C 65 18 84/48 L 99 09/08/24 15:55 36.3 C L 61 16 79/48 L 99 09/08/24 15:34 90/54 L 09/08/24 15:33 68 20 09/08/24 15:06 60 14 96 09/08/24 15:01 85/50 L 09/08/24 14:48 60 15 97 09/08/24 14:46 89/52 L 09/08/24 14:27 60 21 100 09/08/24 14:24 60 22 99 09/08/24 14:16 88/55 L 09/08/24 14:12 61 19 98 09/08/24 14:09 61 18 95 09/08/24 14:00 77/49 L 09/08/24 13:54 83 17 62 L 09/08/24 13:46 81/55 L 09/08/24 13:45 60 14 99 09/08/24 13:33 96 09/08/24 13:31 75/49 L 09/08/24 13:21 96 09/08/24 13:21 09/08/24 13:18 66 18 97 09/08/24 13:15 76/45 L 09/08/24 13:13 09/08/24 13:13 37.1 C 70 18 77/47 L 96 09/08/24 13:10 77/47 L 09/08/24 13:10 70 Pulse Ox O2 Del Method O2 Del Method O2 Flow Rate O2 Flow Rate 09/08/24 21:50 09/08/24 21:35 09/08/24 21:16 09/08/24 19:46 09/08/24 19:11 Room Air 09/08/24 19:03 09/08/24 18:00 09/08/24 17:02 Room Air 09/08/24 17:02 99 Room Air 0 09/08/24 17:00 Room Air 09/08/24 17:00 Room Air 0 09/08/24 17:00 0 09/08/24 16:30 09/08/24 16:15 09/08/24 15:55 09/08/24 15:34 09/08/24 15:33 09/08/24 15:06 09/08/24 15:01 09/08/24 14:48 09/08/24 14:46 09/08/24 14:27 09/08/24 14:24 09/08/24 14:16 09/08/24 14:12 09/08/24 14:09 09/08/24 14:00 09/08/24 13:54 09/08/24 13:46 09/08/24 13:45 09/08/24 13:33 09/08/24 13:31 09/08/24 13:21 09/08/24 13:21 Room Air 09/08/24 13:18 09/08/24 13:15 09/08/24 13:13 Room Air 09/08/24 13:13 Room Air 09/08/24 13:10 09/08/24 13:10 Coding Level of Care Code 79634 CRITICAL CARE 1ST 30-74M Diagnoses Septic shock A41.9; R65.21 Pancytopenia D61.818 Acute UTI N39.0 B-cell lymphoblastic leukemia C91.00 Cardiac pacemaker Z95.0 Acute diastolic congestive heart failure, NYHA class 2 I50.31 Congestive heart failure chronicity: acute Diabetes mellitus, type II, insulin dependent E11.9; Z79.4 Hyperlipidemia E78.5 (6) Diastolic congestive heart failure, NYHA class 2 Congestive heart failure chronicity: acute Qualified Code(s): I50.31 - Acute diastolic (congestive) heart failure
[2024-09-09 01:40] LABS: Hematocrit (blood only) 26.8 % (37.0-47.0); Hemoglobin 8.8 g/dl (12.0-16.0); Immature Granulocytes # (auto) 0.08 K/uL (0.01-0.20); Immature Granulocytes % (auto) 1.5 %; Lymphocytes # (auto) 0.05 K/uL (1.20-3.40); Mean Corpuscular Hemoglobin 30.1 pg (25.0-34.0); Mean Corpuscular Hgb Conc 32.8 g/dL (32.0-36.0); Mean Corpuscular Volume 91.8 fL (80.0-100.0); Mean Platelet Volume 9.9 fL (9.4-12.4); Monocytes # (auto) 0.52 K/uL (0.11-0.59); Neutrophils # (auto) 4.53 K/uL (1.40-6.50); Neutrophils % (auto) 87.5 %; Platelet Count 50 K/uL (130-400); RDW Coefficient of Variation 18.6 % (11.5-14.5); RDW Standard Deviation 57.1 fL (36.4-46.3); Red Blood Count 2.92 M/uL (4.20-5.40); White Blood Count 5.18 K/ul (4.8-10.8)
[2024-09-09 01:53] LABS: BUN Creatinine Ratio 17.1 (10-20); Calcium 7.8 mg/dl (8.6-10.3); Creatinine Clr Calc Pharmacy 27.5 ml/min; Potassium 5.7 mmol/L (3.5-5.1)
[2024-09-09] MEDS: PLASMA-LYTE A 1,000 ML IV SCH (02:43)
[2024-09-09] MEDS: HYDROCORTISONE SOD 50 MG in SYRINGE 0 ML IV SCH ×2 (02:43→08:41)
[2024-09-09] MEDS: ACETAMINOPHEN 325 MG TAB PO PRN (02:49)
--- OUTSIDE RECORDS SUMMARY | 2024-09-09 06:07 | External Medical Summary | Continuity Of Care Document ---
Author Name Unknown Address [address] [address] Organization [facility] () Care Team Providers Care Ophthalmic Medical Technician Name Role Phone DO Perdomo Amy Primary Care Provider [phone] Allergies Allergy Reaction Start Date End Date [...] 3 0.1 mL 09/01 Inactiv e 2023 63686 13550 0 1 time Intrad ermal False Tubersol 5 tub. unit/0.1 mL intradermal injection solution [Tuberculin PPD] 0.1mL Intradermal 1 time For PPD 2nd Step Give 2nd Step PPD Day 1 and Read results Day 3 (schedule 7 days after 1st READ) 0.1mL 09/10 Active 2023 04597 05837 0 1 time Intrad ermal False Tylenol 325 mg tablet 2 tabs By Mouth Every 4 hours as needed For Pain DO NOT EXCEED 3000 MG APAP/24 Hours 2 tabs 09/02 Inactiv e 2023 34580 81900 0 Every 4 hours as needed By Mouth False Tylenol 325 mg tablet 2 tabs By Mouth Every 4 hours as needed For Fever >100 DO NOT EXCEED 3000 MG APAP/24 Hours 2 tabs 2023 0000 /0000 Active 2023 09616 22656 0 Every 4 hours as needed By Mouth False Dulcolax (bisacodyl) 10 mg rectal suppository One Suppository per rectum PRN if Milk of Magnisia ineffective. Give on day 5 of no BM 1 sup 2023 Active 2023 21486 07180 1 Daily as needed Rectal False Fleet Enema 19 gram-7 gram/118 mL Administer per rectum PRN one time if dulcolax suppository not effective. Give on day 6 of no BM 1 2023 Active 2023 71217 58991 6 Daily as needed Rectal False Dextrose 50 % in water (D50W) intravenous solution [generic] Dextrose 50% jose manuel 20-50 ml (slow push) Intravenous if Glucagon not effective after 15 minutes. CALL 911 for ED Evaluation. 50% jose manuel 2023 Active 2023 05829 13521 9 Intrav enous False Glucagon (HCl) Emergency Kit 1 mg solution for injection Administer Glucagon 1 mg Intramuscular if 15 minutes after GLucose Gel is administered Glucose remains less than 70 1 mg 2023 Active 2023 86934 85604 2 Intram uscula r False Glucose Gel 40 % oral gel [Dextrose] PRN If resident is unable to swallow (with or without symptoms) and Glucose results less than 70 give GLucose 40% Gel 1 tube orally - Recheck Glucose 15 minutes after administratio n. 1 tube 2023 Active 2023 05901 90982 8 By Mouth False Santyl 250 unit/gram topical ointment dose Topical Once daily to wound bed daily with wound care For Unstageable Pressure injury dose 2023 Active 2023 00410 35196 0 Once daily Topica l False Fluconazole 200 mg tablet [generic] 1 tab By Mouth Once daily For Yeast infection 1 tab 09/01 Inactiv e 2023 24573 04746 3 Once daily By Mouth False Phenazopyri dine 200 mg tablet [generic] 1 tab By Mouth Three times daily as needed For pain 1 tab 09/02 Inactiv e 2023 95688 36614 1 Three times daily as needed By Mouth False Aspirin 81 mg tablet,zaki yed release [generic] 1 tab By Mouth At bedtime For CAD 1 tab 2023 Active 2023 77635 45447 9 At bedtime By Mouth False BD AutoShield Duo Pen Needle 30 gauge x 3/16in 1 4 times a day subcutaneous 4 times a day change needle wqith every use of insulin For Type 2 diabetes Mellitus 1 2023 Active 2023 12928 95763 5 4 times a day Subcut aneous False Albuterol sulfate HFA 90 mcg/actuati on aerosol inhaler [generic] 2 puff Inhalation Every 6 hours as needed For SOB or wheezing 2 puff 2023 Active 2023 76422 58095 2 Every 6 hours as needed Inhala tion False Tramadol 50 mg tablet [generic] 1 tab By Mouth Every 6 hours as needed For pain 1 tab 09/02 Inactiv e 2023 68536 03709 0 Every 6 hours as needed By Mouth False Docusate sodium 100 mg tablet [generic] 1 tab Daily as needed For constipation 1 tab 2023 Active 2023 08826 88265 1 Daily as needed By Mouth False Senna Laxative 8.6 mg tablet 1 tab By Mouth Daily as needed For constipation 1 tab 2023 Active 2023 13571 75772 0 Daily as needed By Mouth False Potassium chloride ER 20 mEq tablet,exte nded release [generic] 1 tab By Mouth Twice daily For hypokalemia 1 tab 2023 Active 2023 16072 67741 1 Twice daily By Mouth False Acyclovir 400 mg tablet [generic] 1 tab By Mouth Twice daily For preventative B-cell lymphoma 1 tab 2023 Active 2023 85803 33595 1 Twice daily By Mouth False Pantoprazol e 40 mg tablet,zaki yed release [generic] 1 tab By Mouth Once daily For gerd 1 tab 09/02 Inactiv e 2023 31581 44365 0 Once daily By Mouth False Metformin 1,000 mg tablet [generic] 1 tab By Mouth Twice daily For DM2 1 tab 09/02 Inactiv e 2023 70263 06691 0 Twice daily By Mouth False Rosuvastati n 20 mg tablet [generic] 1 tab By Mouth At bedtime For hyperlipdemia 1 tab 2023 Active 2023 62758 34020 0 At bedtime By Mouth False Polyethylen e glycol 3350 (bulk) powder [generic] 17 g By Mouth Daily as needed For constipation 17 g 2023 Active 2023 21308 91783 1 Daily as needed By Mouth False Prochlorper azine maleate 10 mg tablet [generic] 1 tab By Mouth Every 6 hours as needed For nausea 1 tab 09/02 Inactiv e 2023 85254 67898 1 Every 6 hours as needed By Mouth False Bisacodyl 5 mg tablet,zaki yed release [generic] 1 tab By Mouth Daily as needed For constipation 1 tab 2023 Active 2023 80727 18934 1 Daily as needed By Mouth False Lorazepam 0.5 mg tablet [generic] 1 tab By Mouth At bedtime as needed For anxiety 1 tab 09/02 Inactiv e 2023 18863 56631 1 At bedtime as needed By Mouth False Insulin glargine (U-300) conc. 300 unit/mL (3 mL) subcutaneou s pen [generic] 40 units Subcutaneous At bedtime For DM2 40 units 09/02 Inactiv e 2023 92681 52425 2 At bedtime Subcut aneous False Jardiance 10 mg tablet 1 tab By Mouth Once daily For DM2 1 tab 2023 Active 2023 82375 48859 7 Once daily By Mouth False Insulin [...] time order For diabetes 2023 Active 2023 99940 71709 5 3 times a day Subcut aneous False Sulfamethox azole 800 mg-trimetho prim 160 mg tablet [generic] 1 tab By Mouth 3 times a week on sunday, sunday, sunday For UTI 1 tab 09/02 Inactiv e 2023 56220 71930 1 3 times a week By Mouth False Gemtesa 75 mg tablet 75mg By Mouth Once daily For urinary management 75mg 2023 Active 2023 20222 75271 7 Once daily By Mouth False Losartan 25 mg tablet [generic] 25mg By Mouth Once daily For HTN 25mg 09/07 Inactiv e 2023 98561 63134 9 Once daily By Mouth False Ozempic 1 mg/dose (4 mg/3 mL) subcutaneou s pen injector 1mg Subcutaneous Every week For diabetes 1mg 09/04 Inactiv e 2023 06696 71641 3 Every week Subcut aneous False Carvedilol 12.5 mg tablet [generic] 12.5mg By Mouth Twice daily For CAD 12.5mg 09/07 Inactiv e 2023 90463 46319 0 Twice daily By Mouth False Loratadine 10 mg tablet [generic] 10 By Mouth Once daily As Needed For CHEMO 10 09/02 Inactiv e 2023 67190 65933 9 Once daily By Mouth False Loperamide 2 mg tablet [generic] 2mg By Mouth Every 6 hours As Needed For diarrhea 2mg 2023 Active 2023 32499 06547 6 Every 6 hours By Mouth False Spironolact one 25 mg tablet [generic] 25mg By Mouth Once daily For HTN 25mg 09/04 Inactiv e 2023 73654 27603 1 Once daily By Mouth False Lasix 40 mg tablet 40 By Mouth Once daily For htn 40 09/04 Inactiv e 2023 00726 46769 1 Once daily By Mouth False Ondansetron HCl 8 mg tablet [generic] 8mg By Mouth Every 8 hours For Encephalopath y 8mg 09/02 Inactiv e 2023 97598 74582 0 Every 8 hours By Mouth False Levofloxaci n 750 mg tablet [generic] 750 mg By Mouth Once daily For UTI 750 mg 09/02 Inactiv e 2023 11436 60229 6 Once daily By Mouth False Miralax 17 gram/dose oral powder 17grams By Mouth Once daily For constipation 17grams 09/03 Inactiv e 2023 62205 64049 0 Once daily By Mouth False Sulfamethox azole 800 mg-trimetho prim 160 mg tablet [generic] 09/02 Inactiv e 2023 53507 41311 1 Sulfamethox azole 800 mg-trimetho prim 160 mg tablet [generic] 1 tab By Mouth 3 times a week on sunday, sunday, sunday For UTI 1 tab 09/02 Inactiv e 2023 68152 52936 1 3 times a week By Mouth False Sulfamethox azole 800 mg-trimetho prim 160 mg tablet [generic] 09/02 Inactiv e 2023 47966 13772 1 Sulfamethox azole 800 mg-trimetho prim 160 mg tablet [generic] 1 tab By Mouth 3 times a week on sunday, sunday, sunday For UTI 1 tab 2023 00/00 /0000 Active 2023 28904 91121 1 3 times a week By Mouth False Polyethylen e glycol 3350 17 gram/dose oral powder [generic] 17 grams By Mouth Once daily For contispation 17 grams 09/04 Inactiv e 2023 02380 60206 4 Once daily By Mouth False Posaconazol e 100 mg tablet,zaki yed release [generic] 300mg By Mouth Once daily For Antifungal 300mg 09/18 Active 2023 43745 03131 0 Once daily By Mouth False Senna 8.6 mg tablet 2 tabs By Mouth Twice daily For contispation 2 tabs 2023 Active 2023 38991 75803 1 Twice daily By Mouth False ProSource No Carb 15 gram-60 kcal/30 mL oral liquid 30 ml By Mouth Once daily For Wound - Note total ml consumed 30 ml 2023 Active 2023 40814 69667 5 Once daily By Mouth False Levofloxaci n 500 mg tablet [generic] 500 mg By Mouth Once daily For Prophylaxis 500 mg 2023 Active 2023 19180 45800 8 Once daily By Mouth False Mirtazapine 7.5 mg tablet [generic] 7.5 mg By Mouth Once daily For Depression 7.5 mg 2023 Active 2023 45638 69566 5 Once daily By Mouth False Prochlorper azine maleate 10 mg tablet [generic] 09/02 Inactiv e 2023 13134 32479 1 Prochlorper azine maleate 10 mg tablet [generic] 1 tab By Mouth Every 6 hours as needed For nausea 1 tab 09/16 Active 2023 31505 37731 1 Every 6 hours as needed By Mouth False Ondansetron HCl 8 mg tablet [generic] 09/02 Inactiv e 2023 63345 26857 0 Ondansetron HCl 8 mg tablet [generic] 8mg By Mouth Every 8 hours For Nausea 8mg 2023 Active 2023 69567 31235 0 Every 8 hours By Mouth False Lorazepam 0.5 mg tablet [generic] 09/02 Inactiv e 2023 21003 40622 1 Lorazepam 0.5 mg tablet [generic] 1 tab By Mouth At bedtime as needed For anxiety 1 tab 09/02 Inactiv e 2023 62256 20669 1 At bedtime as needed By Mouth False Loratadine 10 mg tablet [generic] 09/02 Inactiv e 2023 93771 75745 9 Loratadine 10 mg tablet [generic] 10 By Mouth Once daily As Needed For when receiving chemotherapy 10 202300 Active 2023 19650 37131 9 Once daily By Mouth False Tramadol 50 mg tablet [generic] 09/02 Inactiv e 2023 02728 58938 0 Tramadol 50 mg tablet [generic] 1 tab By Mouth Every 6 hours as needed For moderate/mynor re pain 1 tab 09/02 Inactiv e 2023 53824 55709 0 Every 6 hours as needed By Mouth False Phenazopyri dine 200 mg tablet [generic] 09/02 Inactiv e 2023 82587 92511 1 Phenazopyri dine 200 mg tablet [generic] 1 tab By Mouth Three times daily as needed For bladder pain 1 tab 202300 / Active 2023 47241 15039 1 Three times daily as needed By Mouth False Tylenol 325 mg tablet 09/02 Inactiv e 2023 08719 49627 0 Tylenol 325 mg tablet 2 tabs By Mouth Every 4 hours as needed For DO NOT EXCEED 3000 MG APAP/24 Hours For mild Pain 2 tabs 202300 /0000 Active 2023 10655 39647 0 Every 4 hours as needed By Mouth False Metformin 1,000 mg tablet [generic] 09/02 Inactiv e 2023 64325 70806 0 Metformin 1,000 mg tablet [generic] 1 tab By Mouth Twice daily with meals For DM2 1 tab 2023 Active 2023 19534 12935 0 Twice daily By Mouth False Pantoprazol e 40 mg tablet,zaki yed release [generic] 09/02 Inactiv e 2023 40176 32649 0 Pantoprazol e 40 mg tablet,zaki yed release [generic] 1 tab By Mouth Once daily For gerd 1 tab 2023 Active 2023 65802 61858 0 Once daily By Mouth False Tramadol 50 mg tablet [generic] 09/02 Inactiv e 2023 76235 49580 0 Tramadol 50 mg tablet [generic] 1 tab By Mouth Every 6 hours as needed For moderate/mynor re pain 1 tab 2023 Active 2023 40015 90748 0 Every 6 hours as needed By Mouth False Lorazepam 0.5 mg tablet [generic] 09/02 Inactiv e 2023 47586 72218 1 Lorazepam 0.5 mg tablet [generic] 1 tab By Mouth At bedtime as needed For anxiety 1 tab 2023 Active 2023 20621 36919 1 At bedtime as needed By Mouth False Polyethylen e glycol 3350 17 gram/dose oral powder [generic] 17 grams By Mouth Daily as needed PRN For order changed to PRN daily forcontispati on 17 grams 2023 Active 2023 41463 17876 4 Daily as needed By Mouth False Spironolact one 25 mg tablet [generic] 12.5 mg By Mouth Once daily For ESSENTIAL (PRIMARY) HYPERTENSION 12.5 mg 2023 Active 2023 70248 23144 1 Once daily By Mouth I10. False Furosemide 20 mg tablet [generic] 20 mg By Mouth Once daily For UNSPECIFIED SYSTOLIC (CONGESTIVE) HEART FAILURE 20 mg 2023 Active 2023 42993 88383 0 Once daily By Mouth I50.20 False Carvedilol 12.5 mg tablet [generic] 09/07 Inactiv e 2023 79772 33124 0 Carvedilol 12.5 mg tablet [generic] 12.5mg By Mouth Twice daily For CAD hold for systolic b/p less than 100 12.5mg 2023 Active 2023 39409 01933 0 Twice daily By Mouth False Losartan 25 mg tablet [generic] 09/07 Inactiv e 2023 00415 16455 9 Losartan 25 mg tablet [generic] 25mg By Mouth Once daily For HTN 25mg 2023 Active 2023 13989 22901 9 Once daily By Mouth False Unstageable [...] Active I25.10 Atherosclerotic hear t disease of [place] coronary artery without angina pectoris 08/29/2024 Active [...] Temperature SpO2 Blood Sugar Pulse Respirations 206 39548 1 64.00 mm[Hg] - Sitting 109.00 mm[Hg] - Sitting 98.70 Tympanic 90.00 % 64.00/ min 16.00/min 11559 206 44868 0 178.60 NI 86802 206 50405 6 63 NI 42249 206 28513 4 72.00 mm[Hg] - Sitting 121.00 mm[Hg] - Sitting 100.40 Forehead Scan 92.00 % 60.00/ min 18.00/min 53397 206 21810 8 72.00 mm[Hg] - Sitting 121.00 mm[Hg] - Sitting 100.40 Tympanic 55787 206 81318 9 60.00/ min 18.00/min 05276 206 62224 5 148.00 mg/dL 60209 207 13314 7 63.00 mm[Hg] - Sitting 122.00 mm[Hg] - Sitting 100.40 Tympanic 60.00/ min 18.00/min 38881 207 02279 7 55.00 mm[Hg] - Sitting 104.00 mm[Hg] - Sitting 98.40 Forehead Scan 96.00 % 66.00/ min 18.00/min 79392 207 30257 5 120.00 mg/dL 207 77908 6 101.00 mg/dL 207 60325 8 63.00 mm[Hg] - Sitting 122.00 mm[Hg] - Sitting 84836 207 35369 7 134.00 mg/dL 207 95780 9 134.00 mg/dL 36680 207 44056 0 127.00 mg/dL 10000 207 58918 7 127.00 mg/dL 207 71165 9 122.00 mg/dL 10961 208 20377 9 62.00 mm[Hg] - Sitting 106.00 mm[Hg] - Sitting 98.60 Tympanic 66.00/ min 18.00/min 40424 208 32697 3 117.00 mg/dL 50194 208 15985 2 155.00 mg/dL 90915 208 77523 6 98.60 Tympanic 46050 208 05799 1 123.00 mg/dL 37467 208 73381 2 123.00 mg/dL 56300 208 60213 4 62.00 mm[Hg] - Sitting 106.00 mm[Hg] - Sitting 59723 208 00632 7 123.00 mg/dL 12394 208 05013 1 123.00 mg/dL 72250 208 16119 7 136.00 mg/dL 62341 209 06214 0 60.00 mm[Hg] - Sitting 113.00 mm[Hg] - Sitting 98.50 Forehead Scan 98.00 % 61.00/ min 16.00/min 50008 209 21474 7 114.00 mg/dL 48540 209 75506 7 111.00 mg/dL 33029 209 98653 0 98.00 Tympanic 73838 209 07099 2 68.00 mm[Hg] - Sitting 118.00 mm[Hg] - Sitting 36801 209 98167 5 156.00 mg/dL 51301 209 90702 4 156.00 mg/dL 14248 209 33832 5 132.00 mg/dL 93340 209 90924 4 132.00 mg/dL 33332 209 24356 0 136.00 mg/dL 58951 210 22797 0 52.00 mm[Hg] - Sitting 119.00 mm[Hg] - Sitting 98.40 Forehead Scan 96.00 % 57.00/ min 18.00/min 07609 210 43586 9 107.00 mg/dL 95283 210 57410 7 108.00 mg/dL 46771 210 01005 8 97.00 Tympanic 82341 210 84066 2 126.00 mg/dL 13018 210 19385 0 126.00 mg/dL 91714 210 94149 9 126.00 mg/dL 95056 210 22354 2 154.00 mg/dL 96071 211 33489 0 53.00 mm[Hg] - Lying Down 104.00 mm[Hg] - Lying Down 98.90 Tympanic 93.00 % 60.00/ min 18.00/min 41306 211 76083 0 62.00 mm[Hg] - Sitting 72.00 mm[Hg] - Sitting 98.30 Tympanic 96.00 % 62.00/ min 18.00/min 24418 211 28306 9 136.00 mg/dL 98468 211 08844 8 131.00 mg/dL 41566 211 69950 3 118.00 mg/dL 31055 211 13032 9 130.00 mg/dL 34375 212 85461 7 46.00 mm[Hg] - Sitting 101.00 mm[Hg] - Sitting 98.50 Tympanic 96.00 % 62.00/ min 20.00/min 41237 212 66670 1 110.00 mg/dL 44153 212 75105 8 110.00 mg/dL 07716 212 99473 8 152.00 mg/dL 65740 212 28152 0 120.00 mg/dL 71975 213 52884 9 123.00 mg/dL 51565 213 72944 9 123.00 mg/dL 08445 213 42146 5 22631 213 48491 2 15710 213 23121 8 39689 213 98508 8 04586 213 19255 5 134.00 mg/dL 30174 214 90745 5 50.00 mm[Hg] - Sitting 108.00 mm[Hg] - Sitting 98.20 Tympanic 97.00 % 60.00/ min 20.00/min 84689 214 24074 0 53.00 mm[Hg] - Sitting 104.00 mm[Hg] - Sitting 97.80 Tympanic 97.00 % 61.00/ min 18.00/min 31254 214 63367 4 122.00 mg/dL 46936 214 35234 2 122.00 mg/dL 24020 214 31639 7 142.00 mg/dL 68433 214 22361 4 142.00 mg/dL 79288 214 46207 7 115.00 mg/dL 15279 214 40051 9 115.00 mg/dL 00997 214 61601 1 121.00 mg/dL 00769 215 22291 5 97.80 Forehead Scan 98.00 % 60.00/ min 18.00/min 30643 215 88798 6 46.00 mm[Hg] - Lying Down 85.00 mm[Hg] - Lying Down 16303 215 40667 5 130.00 mg/dL 92899 215 60179 8 130.00 mg/dL 11045 215 36982 5 130.00 mg/dL 80987 215 07042 2 117.00 mg/dL 26483 215 13362 3 138.00 mg/dL 58193 216 15002 1 62.00 mm[Hg] - Lying Down 90.00 mm[Hg] - Lying Down 63037 216 80369 3 94.00 mg/dL 83838 216 18987 1 36.00 mm[Hg] - Sitting 80.00 mm[Hg] - Sitting 65204 216 27694 9 47833 216 82710 1 26997 216 24980 5 34650 216 90438 0 22511 216 57785 3 Immunizations Vaccine Date Status Influenza 08/29/2024 Completed (PCV13)Pneumococcal 08/29/2024 Completed
[2024-09-09 07:30] LABS: Hematocrit (blood only) 25.7 % (37.0-47.0); Hemoglobin 8.5 g/dl (12.0-16.0)
--- NOTE | 2024-09-09 07:35 | Critical Care Progress Note ---
Date of Service September 09, 2024 Assessment & Plan (1) Septic shock: Plan: Reason Critically Ill: Patient is a 73-year-old female with complex past medical history significant for B-cell lymphoma, aortic stenosis (TAVR), anemia with routine transfusions, DM type II, CHF, HTN, HLD, pacemaker, GI bleeding who presents to the ICU as a transfer from floor after patient was found to be hypotensive requiring vasopressor support. Neuro - [facility] ICU: Negative Cardiac - Shocksuspect this is most likely septic but may be mixed etiology with underlying anemia. Currently receiving blood transfusion, and vasopressor support with Levophed drip - Borderline random cortisol of 23. Will start on 50 mg hydrocortisone every 8 hours for now - History of valvular heart failure/severe aortic stenosis, status post TAVR. Will repeat TTE this admission -Hold Lasix for now - See ID for treatment of sepsis below - Continue fluid resuscitation to maintain euvolemia. Maintain hemoglobin greater than 7 - Did receive Coreg this afternoon. Hold antihypertensives for now - Wean vasopressors as tolerated History of atrial flutter/third-degree heart blockstatus post pacemaker. Patient not anticoagulated with Eliquis due to history of GI bleeding. Antihypertensives on hold. Continuous monitoring on telemetry Respiratory - No history of pulmonary diseasecurrently maintaining oxygen saturations on room air without labored breathing. Chest x-ray without pulmonary infiltrationor consolidation. Continuous monitoring pulse ox for now GI - N.p.o. for now RENAL/LYTES - AKIpatient creatinine 1.88 with previous baseline of 1.35 on last admission. Likely due to ATN in setting of hypotension/sepsis/dehydration - Continue with fluid resuscitation, blood transfusions, and vasopressor support as needed to maintain maps greater than 65 and establish euvolemia -Avoid nephrotoxins and renally adjust medications -Lasix, lisinopril, spironolactone, potassium on hold - Mildly hyperkalemic, No EKG changes. Hold potassium. Will continue to monitor with BMPs for now - Foleystrict I's and O's ENDO - DM type IIhold metformin in favor of sliding scale/basal bolus. ICU hyperglycemic protocol HEME - Pancytopeniapatient with chronic bone marrow suppression due to B-cell lymphoma. States that she last received chemotherapy in the spring and last radiation on this past Sunday. She receives scheduled transfusions with last unit of RBCs on Sunday - Hemoglobin on admission 6.7, currently receiving second unit RBCs - Platelet count at 48,000, consistent with previous admissions - No current evidence of bleeding. No signs of retroperitoneal or intra- abdominal bleeding on CT abdomen and pelvis. Denies tarry stools or bloody bowel movements. - Repeat CBC posttransfusion, trend H&H. Transfuse as indicated Heme-onc B-cell lymphomaPatient previously underwent R-CHOP 2018 and was receiving radiation with last radiation treatment last Sunday. - 06/25/2024 PET scanfindings compatible with mixed treatment response. Improvement of the previously noted disease within the neck chest and majority of the abdomen and pelvis, however progressive disease within the terminal ileum and cecum demonstrate invasion/involvement of the right rectus sheath musculature. Positive treatment response of the skeletal disease - consult oncology ID - Sepsis Highly suspect urinary source although patient is immunocompromised. WBC 3.85, chronically suppressed. Mildly elevated procalcitonin of 0.5 and elevated lactate on admission - No infiltrate seen on chest x-ray, and CT abdomen and pelvis unremarkable for infectious process -Urinalysis concerning for UTI. Urine culture and blood cultures currently pending -Nasal MRSA currently pending - Positive for COVID PCR on 08/20/2024, Did not undergo treatment - Patient takes Bactrim 3 times weekly in the outpatient - Will start on Zosyn and daptomycin for now LINES/IV ACCESS - Right subclavian port, peripheral IVs DVT PROPHYLAXIS - SCDs, hold anticoagulation as patient is currently anemic receiving transfusions with thrombocytopenia as well I have personally spent 68 minutes of critical care time in the direct management of this patient. This is a life/limb threatening event. This includes time spent evaluating patient, direct bedside care, chart review, placing orders, interpretation of diagnostic studies, discussion with consultants, patient, and family members, as well as other required patient management activities. This time is exclusive of all separately billable procedures, and teaching time and separate from and in addition to any other critical care service time. Thank you for allowing us to participate in the care of this patient. Please refer to my attending physician's documentation for any further recommendations. (2) Pancytopenia: (3) Acute UTI: (4) B-cell lymphoblastic leukemia: (5) Cardiac pacemaker: (6) Diastolic congestive heart failure, NYHA class 2: (7) Diabetes mellitus, type II, insulin dependent: (8) Hyperlipidemia: Admission and Anticipated Discharge Date Admission Date: September 08, 2024 Results & Data Results & Data Vital Signs (Past 12 Hours) Vital Signs Temp Pulse Resp BP BP Pulse Ox 09/09/24 07:33 60 09/09/24 06:03 37.3 C 60 26 H 96 09/09/24 06:00 105/57 L 09/09/24 06:00 105/57 L 09/09/24 06:00 105/57 L 09/09/24 06:00 105/57 L 09/09/24 05:45 103/53 L 09/09/24 05:45 103/53 L 09/09/24 05:30 100/55 L 09/09/24 05:30 100/55 L 09/09/24 05:18 37.3 C 60 24 92 09/09/24 05:15 100/55 L 09/09/24 05:12 37.3 C 60 21 93 09/09/24 05:03 37.4 C 60 19 96 09/09/24 05:00 105/60 09/09/24 05:00 105/60 09/09/24 04:51 37.4 C 60 18 96 09/09/24 04:45 108/55 L 09/09/24 04:42 37.4 C 60 19 94 09/09/24 04:39 37.4 C 60 17 95 09/09/24 04:15 104/71 09/09/24 04:15 104/71 09/09/24 04:15 104/71 09/09/24 04:14 37.3 C 60 18 96 09/09/24 04:00 107/48 L 09/09/24 03:53 37.4 C 60 17 96 09/09/24 03:47 37.4 C 60 24 96 09/09/24 03:46 104/35 L 09/09/24 03:38 37.5 C 60 18 96 09/09/24 03:32 37.5 C 62 17 96 09/09/24 03:30 102/48 L 09/09/24 03:30 102/48 L 09/09/24 03:30 102/48 L 09/09/24 03:29 37.5 C 60 19 96 09/09/24 03:15 98/62 L 09/09/24 03:15 98/62 L 09/09/24 03:15 98/62 L 09/09/24 03:14 37.5 C 60 20 96 09/09/24 03:02 37.5 C 60 20 96 09/09/24 03:01 95/65 L 09/09/24 03:01 95/65 L 09/09/24 02:45 107/70 09/09/24 02:45 37.5 C 62 23 95 09/09/24 02:33 37.5 C 60 20 95 09/09/24 02:30 109/41 L 09/09/24 02:30 109/41 L 09/09/24 02:26 37.5 C 66 22 95 09/09/24 02:16 103/51 L 09/09/24 02:15 37.5 C 60 18 95 09/09/24 02:03 37.4 C 62 19 95 09/09/24 02:00 115/60 09/09/24 01:57 37.4 C 60 18 96 09/09/24 01:46 102/54 L 09/09/24 01:45 37.4 C 60 17 94 09/09/24 01:30 37.4 C 61 21 93 09/09/24 01:30 111/54 L 09/09/24 01:30 111/54 L 09/09/24 01:30 111/54 L 09/09/24 01:15 105/75 09/09/24 01:15 105/75 09/09/24 01:15 105/75 09/09/24 01:06 37.4 C 61 19 97 09/09/24 01:05 37.4 C 62 21 96 09/09/24 00:38 37.4 C 77 16 96 09/09/24 00:30 105/57 L 09/09/24 00:30 105/57 L 09/09/24 00:26 37.4 C 67 26 H 97 09/09/24 00:16 37.1 C 60 22 108/71 97 09/09/24 00:15 108/71 09/09/24 00:15 108/71 09/09/24 00:14 37.5 C 60 21 96 09/09/24 00:05 37.4 C 60 26 H 98 09/09/24 00:00 97/62 L 09/08/24 23:50 37.4 C 60 25 H 96 09/08/24 23:45 99/55 L 09/08/24 23:45 99/55 L 09/08/24 23:33 37.3 C 60 21 98 09/08/24 23:30 113/64 09/08/24 23:30 113/64 09/08/24 23:30 113/64 09/08/24 23:30 113/64 09/08/24 23:30 37.1 C 60 25 H 98 09/08/24 23:20 37.1 C 60 18 113/64 96 09/08/24 23:15 107/49 L 09/08/24 23:15 107/49 L 09/08/24 23:13 61 09/08/24 23:05 106/57 L 09/08/24 23:03 92/51 L 09/08/24 23:03 92/51 L 09/08/24 23:03 37.4 C 60 19 100 09/08/24 23:00 73/48 L 09/08/24 22:20 37.2 C 60 18 101/59 L 99 09/08/24 21:50 37.2 C 60 81/49 L 97 09/08/24 21:35 60 18 80/44 L 98 09/08/24 21:16 36.8 C 61 16 84/67 L 98 09/08/24 19:46 90/59 L Coding Diagnoses Septic shock A41.9; R65.21 Pancytopenia D61.818 Acute UTI N39.0 B-cell lymphoblastic leukemia C91.00 Cardiac pacemaker Z95.0 Acute diastolic congestive heart failure, NYHA class 2 I50.31 Congestive heart failure chronicity: acute Diabetes mellitus, type II, insulin dependent E11.9; Z79.4 Hyperlipidemia E78.5 (6) Diastolic congestive heart failure, NYHA class 2 Congestive heart failure chronicity: acute Qualified Code(s): I50.31 - Acute diastolic (congestive) heart failure
[2024-09-09] MEDS ORDERED: cefTRIAXone SODIUM 1,000 MG/50 ML BAG IV SCH (07:45)
--- NOTE | 2024-09-09 08:13 | Medical Student Progress Note ---
Date of Service September 09, 2024 Assessment & Plan (1) Anemia: (2) Acute dehydration: (3) Hypotension: Hypotension type: unspecified hypotension type Qualified Code(s): I95.9 - Hypotension, unspecified (4) B-cell lymphoma: Plan Anemia Appears to be predominantly due to her lymphoma and/or treatment. Also has history of MAVERICK. - Continue senna 8.6 mg po qd Acute dehydration Related to poor p.o. intake. Giving blood, additionally giving IV fluids. Her dehydration has led to concomitant hyperkalemia and acute kidney injuryrecheck shows numbers to be stable not climbing. I suspect the hyperkalemia/HARJINDER are due to poor p.o. intake in addition to her home meds (ARB, diuretic, and spironolactone are all now on hold). Follow labs with IV fluids Hypotension Mild, asymptomatic, improving. WNL systolically, still hypotensive diastolically. -Continue fluid management per ICU. 1 L bolus LR recommended -Should she become tachycardic or symptomaticobviously fluid bolus and/or an additional unit of blood B-cell lymphoma See aboveis not entirely clear how much of the lymphoma itself and/or lymphoma treatments may be provoking her anemia compared to the iron deficiency as wellwill discuss with hematology Admission and Anticipated Discharge Date Admission Date: September 08, 2024 Supervising Attestation I personally examined the patient and verified all bustillo points of history and exam, discussed case, and agree with decision making with Dr Oneill and Akhil Tello MS2 She continues to feel okay. Just generally fatigued. May be eating a little bit better. Discussed with her projects manager who is worried that her anemia may be from some degree of GI blood losses from her pelvic mass, as well as hypoproliferative. Vitals noted, in general she is awake and alert fatigued no distress. HEENT normocephalic atraumatic mucous membranes moist. Breathing unlabored no accessory muscle use good effort. Skin without rashes pallor or icterus. Neuro without focal deficits. Hypotensionsuspect severe and multifactorial hypovolemia (anemia and dehydration) but hard to rule out distributive (either from hypoalbuminemia and/or septic/infectious, although I doubt she has infection at this pointbut again kind of hard to rule out and she is immune compromised. Continue current carewean pressors as possible. Does not appear to need further transfusions at this time. Continue to give iron. Continue IV fluids. In regards to her failure to thrive/malnutritionstarted to discuss, will outline more formal nutritional and hydration goals, and ask dietitian to do the same. Subjective Had persistent hypotension last night-admitted to ICU for vasopressor support. Started on Levophed drip, hydrocortisone 50 mg q8h. Tiffani is feeling ok this morning. Currently asymptomatic, and was asymptomatic all night. No change in weakness/fatigue. No concerns. Working on eating/drinking as we visited as she knows she needs to increase her oral intake. Physical Exam Constitutional: Awake and alert, in no acute distress Eyes: PERRL, EOMI ENMT: Oral mucosa moist. Respiratory: Lungs clear to auscultation b/l, no wheezing, rales, rhonchi Cardiovascular: RRR, no murmurs, rubs, gallops. Radial + pedal pulses intact. L arm hematoma. No edema Results & Data Vital Signs (Past 12 Hours) Vital Signs Temp Pulse Resp BP BP Pulse Ox 09/09/24 06:03 37.3 C 60 26 H 96 09/09/24 06:00 105/57 L 09/09/24 06:00 105/57 L 09/09/24 06:00 105/57 L 09/09/24 06:00 105/57 L 09/09/24 05:45 103/53 L 09/09/24 05:45 103/53 L 09/09/24 05:30 100/55 L 09/09/24 05:30 100/55 L 09/09/24 05:18 37.3 C 60 24 92 09/09/24 05:15 100/55 L 09/09/24 05:12 37.3 C 60 21 93 09/09/24 05:03 37.4 C 60 19 96 09/09/24 05:00 105/60 09/09/24 05:00 105/60 09/09/24 04:51 37.4 C 60 18 96 09/09/24 04:45 108/55 L 09/09/24 04:42 37.4 C 60 19 94 09/09/24 04:39 37.4 C 60 17 95 09/09/24 04:15 104/71 09/09/24 04:15 104/71 09/09/24 04:15 104/71 09/09/24 04:14 37.3 C 60 18 96 09/09/24 04:00 107/48 L 09/09/24 03:53 37.4 C 60 17 96 09/09/24 03:47 37.4 C 60 24 96 09/09/24 03:46 104/35 L 09/09/24 03:38 37.5 C 60 18 96 09/09/24 03:32 37.5 C 62 17 96 09/09/24 03:30 102/48 L 09/09/24 03:30 102/48 L 09/09/24 03:30 102/48 L 09/09/24 03:29 37.5 C 60 19 96 09/09/24 03:15 98/62 L 09/09/24 03:15 98/62 L 09/09/24 03:15 98/62 L 09/09/24 03:14 37.5 C 60 20 96 09/09/24 03:02 37.5 C 60 20 96 09/09/24 03:01 95/65 L 09/09/24 03:01 95/65 L 09/09/24 02:45 107/70 09/09/24 02:45 37.5 C 62 23 95 09/09/24 02:33 37.5 C 60 20 95 09/09/24 02:30 109/41 L 09/09/24 02:30 109/41 L 09/09/24 02:26 37.5 C 66 22 95 09/09/24 02:16 103/51 L 09/09/24 02:15 37.5 C 60 18 95 09/09/24 02:03 37.4 C 62 19 95 09/09/24 02:00 115/60 09/09/24 01:57 37.4 C 60 18 96 09/09/24 01:46 102/54 L 09/09/24 01:45 37.4 C 60 17 94 09/09/24 01:30 37.4 C 61 21 93 09/09/24 01:30 111/54 L 09/09/24 01:30 111/54 L 09/09/24 01:30 111/54 L 09/09/24 01:15 105/75 09/09/24 01:15 105/75 09/09/24 01:15 105/75 09/09/24 01:06 37.4 C 61 19 97 09/09/24 01:05 37.4 C 62 21 96 09/09/24 00:38 37.4 C 77 16 96 09/09/24 00:30 105/57 L 09/09/24 00:30 105/57 L 09/09/24 00:26 37.4 C 67 26 H 97 09/09/24 00:16 37.1 C 60 22 108/71 97 09/09/24 00:15 108/71 09/09/24 00:15 108/71 09/09/24 00:14 37.5 C 60 21 96 09/09/24 00:05 37.4 C 60 26 H 98 09/09/24 00:00 97/62 L 09/08/24 23:50 37.4 C 60 25 H 96 09/08/24 23:45 99/55 L 09/08/24 23:45 99/55 L 09/08/24 23:33 37.3 C 60 21 98 09/08/24 23:30 113/64 09/08/24 23:30 113/64 09/08/24 23:30 113/64 09/08/24 23:30 113/64 09/08/24 23:30 37.1 C 60 25 H 98 09/08/24 23:20 37.1 C 60 18 113/64 96 09/08/24 23:15 107/49 L 09/08/24 23:15 107/49 L 09/08/24 23:13 61 09/08/24 23:05 106/57 L 09/08/24 23:03 92/51 L 09/08/24 23:03 92/51 L 09/08/24 23:03 37.4 C 60 19 100 09/08/24 23:00 73/48 L 09/08/24 22:20 37.2 C 60 18 101/59 L 99 09/08/24 21:50 37.2 C 60 81/49 L 97 09/08/24 21:35 60 18 80/44 L 98 09/08/24 21:16 36.8 C 61 16 84/67 L 98 09/08/24 19:46 90/59 L Resident Activity Tracking Resident Involvement: Resident Care Provided Care Provided: Adult Hospital Medicine Resident Supervision Co-Signing Physician Notes Resident Attestation I was personally present during medical student and patient encounter and independently interviewed and examined the patient and verified the bustillo history and physical, reviewed labs and image studies, discussed the case with Getachew Tello () and Jamaal Calloway (), and agree with the above mentioned findings and care plan.
[2024-09-09] MEDS: cefTRIAXone SODIUM 2,000 MG/50 ML BAG IV SCH (08:41)
[2024-09-09] MEDS ORDERED: levoFLOXacin 750 MG TAB PO SCH (09:00)
[2024-09-09] MEDS: FLUDROCORTISONE ACETATE 0.1 MG TAB PO SCH (09:09)
[2024-09-09] MEDS: VIBEGRON 75 MG TAB PO SCH (09:09)
[2024-09-09 09:26] LABS: Dohle Bodies 1+; Toxic Granulation 1+
--- NOTE | 2024-09-09 10:58 | Critical Care Progress Note ---
Date of Service September 09, 2024 Assessment & Plan (1) Septic shock: (2) Pancytopenia: (3) Acute UTI: (4) B-cell lymphoblastic leukemia: (5) Cardiac pacemaker: (6) Diastolic congestive heart failure, NYHA class 2: (7) Diabetes mellitus, type II, insulin dependent: (8) Hyperlipidemia: Plan Reason Critically Ill: Patient is a 73-year-old female with complex past medical history significant for B-cell lymphoma, aortic stenosis (TAVR), anemia with routine transfusions, DM type II, CHF, HTN, HLD, pacemaker, GI bleeding who presents to the ICU as a transfer from floor after patient was found to be hypotensive requiring vasopressor support. 24-hour events: Patient brought to the ICU due to refractory hypotension and initiated on vasopressor agents. She has been stable on a low-dose of norepinephrine overnight. Recommendations: Neuro -no acute issues. Patient is profoundly deconditioned and will require physical therapy and Occupational Therapy once hemodynamically stable. Cardiac -significant cardiac issues including EF 35 to 40% with moderate to severe MR and pulmonary hypertension. Known significant diastolic dysfunction. Status post TAVR. Will repeat echocardiogram now. Holding diuretics for now. Appears euvolemic to slightly volume down. Status post pacemaker. Holding antihypertensives in no anticoagulation given prior history of GI bleed. Respiratory -remote history of sarcoid. Not clinically active. Continue oxygen as needed. Will need pulmonary toilet including incentive spirometry GI -tolerating diet. RENAL/LYTES -acute renal insufficiency likely secondary to hypoperfusion. Holding diuretics as well as antihypertensives. Continue to trend labs. Mild hyperkalemia. Will repeat this afternoon to ensure responding appropriately. Discontinue Bactrim as this may be contributing to renal insufficiency as well as hyperkalemia. - Foleystrict I's and O's HEME -B-cell lymphoma currently undergoing therapy. Suspected cytopenias are related to chemotherapy although cannot exclude marrow involvement. Continue to transfuse to keep hemoglobin above 7. Follow platelet counts. If continues to be problematic, oncology consultation will be obtained. ID -suspect urinary source. Awaiting cultures. Prior urinalysis grew E. coli resistant to fluoroquinolones. Transition to ceftriaxone. Discontinue daptomycin. Follow clinical response. Sepsis Highly suspect urinary source although patient is immunocompromised. WBC 3.85, chronically suppressed. Mildly elevated procalcitonin of 0.5 and elevated lactate on admission ENDO - glycemic control per protocol. On Florinef and hydrocortisone for relative adrenal insufficiency. LINES/IV ACCESS - Right subclavian port, peripheral IVs DVT PROPHYLAXIS - SCDs, hold anticoagulation as patient is currently anemic receiving transfusions with thrombocytopenia as well Patient remains critically ill with multiorgan system dysfunction. Significant probability of clinical decline. Patient wants to continue to pursue full resuscitative efforts. A total of 54 minutes in critical care time spent in evaluation management coordinating care for this patient. Admission and Anticipated Discharge Date Admission Date: September 08, 2024 Subjective Patient seen and examined. EMR reviewed. Discussed with overnight critical care HIEU and on multidisciplinary rounds as well as with bedside critical care nurse. Patient reports feeling very weak this morning. She does not have any chest pain or palpitations. She would like to get up and work with therapy but continues to require low-dose of vasopressor agents. She denies any nausea or vomiting. No significant shortness of breath. Review of Systems Review of Systems: All systems reviewed & are unremarkable except as noted in Subjective Physical Exam Constitutional: cooperative and comfortable Eyes: PERRL, conjunctivae normal, anicteric sclerae ENMT: external ear and nose normal, oropharynx normal Neck: trachea midline, no thyromegaly Respiratory: normal respiratory effort, lungs clear to auscultation Cardiovascular: Heart Sounds: + click Extremities: no edema Paced rhythm Gastrointestinal (Abdomen): normal bowel sounds, soft, nontender, no hepatosplenomegaly Musculoskeletal: no cyanosis or clubbing, extremities motor strength 5/5 Skin: Superficial pressure ulcer to the sacrum, no other wounds or rashes noted on exam Neurologic: PERRL, EOMI, accommodation nl, no face palsy, no dysarthria Psychiatric: A+Ox3, euthymic affect Results & Data Results & Data Vital Signs (Past 12 Hours) Vital Signs Temp Pulse Resp BP Pulse Ox O2 Del Method 09/09/24 09:12 Room Air 09/09/24 08:30 98/51 L 09/09/24 08:30 37.0 C 66 17 95 09/09/24 08:00 37.1 C 60 18 95 09/09/24 08:00 102/50 L 09/09/24 07:33 60 09/09/24 07:31 109/70 09/09/24 07:15 103/61 09/09/24 07:00 103/58 L 09/09/24 07:00 37.2 C 61 21 95 09/09/24 06:03 37.3 C 60 26 H 96 09/09/24 06:00 105/57 L 09/09/24 06:00 105/57 L 09/09/24 06:00 105/57 L 09/09/24 06:00 105/57 L 09/09/24 05:45 103/53 L 09/09/24 05:45 103/53 L 09/09/24 05:30 100/55 L 09/09/24 05:30 100/55 L 09/09/24 05:18 37.3 C 60 24 92 09/09/24 05:15 100/55 L 09/09/24 05:12 37.3 C 60 21 93 09/09/24 05:03 37.4 C 60 19 96 09/09/24 05:00 105/60 09/09/24 05:00 105/60 09/09/24 04:51 37.4 C 60 18 96 09/09/24 04:45 108/55 L 09/09/24 04:42 37.4 C 60 19 94 09/09/24 04:39 37.4 C 60 17 95 09/09/24 04:15 104/71 09/09/24 04:15 104/71 09/09/24 04:15 104/71 09/09/24 04:14 37.3 C 60 18 96 09/09/24 04:00 107/48 L 09/09/24 03:53 37.4 C 60 17 96 09/09/24 03:47 37.4 C 60 24 96 09/09/24 03:46 104/35 L 09/09/24 03:38 37.5 C 60 18 96 09/09/24 03:32 37.5 C 62 17 96 09/09/24 03:30 102/48 L 09/09/24 03:30 102/48 L 09/09/24 03:30 102/48 L 09/09/24 03:29 37.5 C 60 19 96 09/09/24 03:15 98/62 L 09/09/24 03:15 98/62 L 09/09/24 03:15 98/62 L 09/09/24 03:14 37.5 C 60 20 96 09/09/24 03:02 37.5 C 60 20 96 09/09/24 03:01 95/65 L 09/09/24 03:01 95/65 L 09/09/24 02:45 107/70 09/09/24 02:45 37.5 C 62 23 95 09/09/24 02:33 37.5 C 60 20 95 09/09/24 02:30 109/41 L 09/09/24 02:30 109/41 L 09/09/24 02:26 37.5 C 66 22 95 09/09/24 02:16 103/51 L 09/09/24 02:15 37.5 C 60 18 95 09/09/24 02:03 37.4 C 62 19 95 09/09/24 02:00 115/60 09/09/24 01:57 37.4 C 60 18 96 09/09/24 01:46 102/54 L 09/09/24 01:45 37.4 C 60 17 94 09/09/24 01:30 37.4 C 61 21 93 09/09/24 01:30 111/54 L 09/09/24 01:30 111/54 L 09/09/24 01:30 111/54 L 09/09/24 01:15 105/75 09/09/24 01:15 105/75 09/09/24 01:15 105/75 09/09/24 01:06 37.4 C 61 19 97 09/09/24 01:05 37.4 C 62 21 96 09/09/24 00:38 37.4 C 77 16 96 09/09/24 00:30 105/57 L 09/09/24 00:30 105/57 L 09/09/24 00:26 37.4 C 67 26 H 97 09/09/24 00:16 37.1 C 60 22 108/71 97 09/09/24 00:15 108/71 09/09/24 00:15 108/71 09/09/24 00:14 37.5 C 60 21 96 09/09/24 00:05 37.4 C 60 26 H 98 09/09/24 00:00 97/62 L 09/08/24 23:50 37.4 C 60 25 H 96 09/08/24 23:45 99/55 L 09/08/24 23:45 99/55 L 09/08/24 23:33 37.3 C 60 21 98 09/08/24 23:30 113/64 09/08/24 23:30 113/64 09/08/24 23:30 113/64 09/08/24 23:30 113/64 09/08/24 23:30 37.1 C 60 25 H 98 09/08/24 23:20 37.1 C 60 18 113/64 96 09/08/24 23:15 107/49 L 09/08/24 23:15 107/49 L 09/08/24 23:13 61 09/08/24 23:05 106/57 L 09/08/24 23:03 92/51 L 09/08/24 23:03 92/51 L 09/08/24 23:03 37.4 C 60 19 100 09/08/24 23:00 73/48 L Critical Care Results & Data Vital Signs (Past 12 Hours) Vital Signs Temp Pulse Resp BP Pulse Ox O2 Del Method 09/09/24 09:12 Room Air 09/09/24 08:30 98/51 L 09/09/24 08:30 37.0 C 66 17 95 09/09/24 08:00 37.1 C 60 18 95 09/09/24 08:00 102/50 L 09/09/24 07:33 60 09/09/24 07:31 109/70 09/09/24 07:15 103/61 09/09/24 07:00 103/58 L 09/09/24 07:00 37.2 C 61 21 95 09/09/24 06:03 37.3 C 60 26 H 96 09/09/24 06:00 105/57 L 09/09/24 06:00 105/57 L 09/09/24 06:00 105/57 L 09/09/24 06:00 105/57 L 09/09/24 05:45 103/53 L 09/09/24 05:45 103/53 L 09/09/24 05:30 100/55 L 09/09/24 05:30 100/55 L 09/09/24 05:18 37.3 C 60 24 92 09/09/24 05:15 100/55 L 09/09/24 05:12 37.3 C 60 21 93 09/09/24 05:03 37.4 C 60 19 96 09/09/24 05:00 105/60 09/09/24 05:00 105/60 09/09/24 04:51 37.4 C 60 18 96 09/09/24 04:45 108/55 L 09/09/24 04:42 37.4 C 60 19 94 09/09/24 04:39 37.4 C 60 17 95 09/09/24 04:15 104/71 09/09/24 04:15 104/71 09/09/24 04:15 104/71 09/09/24 04:14 37.3 C 60 18 96 09/09/24 04:00 107/48 L 09/09/24 03:53 37.4 C 60 17 96 09/09/24 03:47 37.4 C 60 24 96 09/09/24 03:46 104/35 L 09/09/24 03:38 37.5 C 60 18 96 09/09/24 03:32 37.5 C 62 17 96 09/09/24 03:30 102/48 L 09/09/24 03:30 102/48 L 09/09/24 03:30 102/48 L 09/09/24 03:29 37.5 C 60 19 96 09/09/24 03:15 98/62 L 09/09/24 03:15 98/62 L 09/09/24 03:15 98/62 L 09/09/24 03:14 37.5 C 60 20 96 09/09/24 03:02 37.5 C 60 20 96 09/09/24 03:01 95/65 L 09/09/24 03:01 95/65 L 09/09/24 02:45 107/70 09/09/24 02:45 37.5 C 62 23 95 09/09/24 02:33 37.5 C 60 20 95 09/09/24 02:30 109/41 L 09/09/24 02:30 109/41 L 09/09/24 02:26 37.5 C 66 22 95 09/09/24 02:16 103/51 L 09/09/24 02:15 37.5 C 60 18 95 09/09/24 02:03 37.4 C 62 19 95 09/09/24 02:00 115/60 09/09/24 01:57 37.4 C 60 18 96 09/09/24 01:46 102/54 L 09/09/24 01:45 37.4 C 60 17 94 09/09/24 01:30 37.4 C 61 21 93 09/09/24 01:30 111/54 L 09/09/24 01:30 111/54 L 09/09/24 01:30 111/54 L 09/09/24 01:15 105/75 09/09/24 01:15 105/75 09/09/24 01:15 105/75 09/09/24 01:06 37.4 C 61 19 97 09/09/24 01:05 37.4 C 62 21 96 09/09/24 00:38 37.4 C 77 16 96 09/09/24 00:30 105/57 L 09/09/24 00:30 105/57 L 09/09/24 00:26 37.4 C 67 26 H 97 09/09/24 00:16 37.1 C 60 22 108/71 97 09/09/24 00:15 108/71 09/09/24 00:15 108/71 09/09/24 00:14 37.5 C 60 21 96 09/09/24 00:05 37.4 C 60 26 H 98 09/09/24 00:00 97/62 L 09/08/24 23:50 37.4 C 60 25 H 96 09/08/24 23:45 99/55 L 09/08/24 23:45 99/55 L 09/08/24 23:33 37.3 C 60 21 98 09/08/24 23:30 113/64 09/08/24 23:30 113/64 09/08/24 23:30 113/64 09/08/24 23:30 113/64 09/08/24 23:30 37.1 C 60 25 H 98 09/08/24 23:20 37.1 C 60 18 113/64 96 09/08/24 23:15 107/49 L 09/08/24 23:15 107/49 L 09/08/24 23:13 61 09/08/24 23:05 106/57 L 09/08/24 23:03 92/51 L 09/08/24 23:03 92/51 L 09/08/24 23:03 37.4 C 60 19 100 09/08/24 23:00 73/48 L Lab & Micro Results (Past 24 Hours) RBC 2.92 M/uL (4.20-5.40) L 09/09/24 WBC 5.18 K/ul (4.8-10.8) 09/09/24 Hgb 8.5 g/dl (12.0-16.0) L 09/09/24 Hct 25.7 % (37.0-47.0) L 09/09/24 MCV 91.8 fL (80.0-100.0) 09/09/24 MCH 30.1 pg (25.0-34.0) 09/09/24 MCHC 32.8 g/dL (32.0-36.0) 09/09/24 RDW Standard Deviation 57.1 fL (36.4-46.3) H 09/09/24 RDW Coefficient of Variation 18.6 % (11.5-14.5) H 09/09/24 Plt Count 50 K/uL (130-400) L 09/09/24 MPV 9.9 fL (9.4-12.4) 09/09/24 Neutrophils (%) (Auto) 87.5 % 09/09/24 Lymphocytes (%) (Auto) 1.0 % 09/09/24 Monocytes # (Auto) 0.52 K/uL (0.11-0.59) 09/09/24 Eosinophils # (Auto) 0.00 K/uL (0.00-0.50) 09/09/24 Immature Granulocyte % (Auto) 1.5 % 09/09/24 Neutrophils # (Auto) 4.53 K/uL (1.40-6.50) 09/09/24 Lymphocytes # (Auto) 0.05 K/uL (1.20-3.40) L 09/09/24 Monocytes # (Auto) 0.52 K/uL (0.11-0.59) 09/09/24 Eosinophils # (Auto) 0.00 K/uL (0.00-0.50) 09/09/24 Basophils # (Auto) 0.00 K/uL (0.00-0.20) 09/09/24 Immature Granulocyte # (Auto) 0.08 K/uL (0.01-0.20) 4 Polychromasia 1+ 09/08/24 Anisocytosis Present 09/08/24 Toxic Granulation 1+ 09/08/24 Dohle Bodies 1+ 09/08/24 Na 132 mmol/L (136-145) L 09/09/24 K 5.7 mmol/L (3.5-5.1) H 09/09/24 Cl 104 mmol/L (98-107) 09/09/24 CO2 21 mmol/L (21-32) 09/09/24 Anion Gap 7 (3-11) 09/09/24 BUN 32 mg/dl (6-23) H 09/09/24 Creatinine 1.87 mg/dl (0.6-1.2) H 09/09/24 BUN/Creatinine Ratio 17.1 (10-20) 09/09/24 Glu 149 mg/dl (70-99(Fasting)) H 09/09/24 Ca 7.8 mg/dl (8.6-10.3) L 09/09/24 Total Bilirubin 0.9 mg/dl (0.2-1.0) 09/08/24 Direct Bilirubin 0.3 mg/dl (0-0.2) H 09/08/24 AST 70 U/L (13-39) H 09/08/24 ALT 50 U/L (7-52) 09/08/24 Alkaline Phosphatase 74 U/L (34-104) 09/08/24 TP 4.4 gm/dl (6.0-8.3) L 09/08/24 Albumin 2.5 gm/dl (3.4-5.0) L 09/08/24 Globulin 1.9 gm/dl (2.5-4.0) L 09/08/24 Albumin/Globulin Ratio 1.3 (0.9-2) 09/08/24 Mg 2.0 mg/dl (1.7-2.4) 09/08/24 20:18 Calcium Level 7.8 mg/dl (8.6-10.3) L 09/09/24 01:23 Prothromb Time International Ratio 1.4 (0.9-1.1) H 09/08/24 14 :40 Venous Blood pH 7.36 (7.36-7.41) 09/08/24 22:27 Venous Blood Partial Pressure CO2 37 mmHg (38-50) L 09/08/24 22 :27 Venous Blood Partial Pressure O2 21 mmHg 09/08/24 22:27 Venous Blood HCO3 21 mmol/L 09/08/24 22: Venous Blood Base Excess -4.0 mEq/L 09/08/24 22: Venous Blood Oxygen Saturation < 60.0 % 09/08/24 22:27 Diagnostic Findings (Past 24 Hours) Chest X-Ray 09/08/24 13:21 XR chest 1V portable HISTORY: 73 years-old Female Sepsis COMPARISON: 08/20/2024 TECHNIQUE: AP view of the chest FINDINGS: Cardiac silhouette is enlarged. Unchanged right IJ [id number] catheter and left subclavian pacer. No pneumothorax, pleural effusion or airspace consolidation. No overt pulmonary edema. Bones appear grossly intact. IMPRESSION: Cardiomegaly without acute process. ACT 112: Negative or not required by law. The above report was generated using voice recognition software. It may contain grammatical, syntax or spelling errors. Electronically signed by: Damion Oswald M.D. 09/08/2024 1:53 PM Abdomen/Pelvis CT 09/08/24 14:[address] WITHOUT CONTRAST CT DOSE: 1116.15 mGy.cm HISTORY: Patient presents with sacral ulcers sacral ulcer TECHNIQUE: Multiaxial CT images of the abdomen and pelvis were performed without contrast. A dose lowering technique was utilized adhering to the principles of ALARA. COMPARISON STUDY: PET/CT June 25, 2024 FINDINGS: Cardiomegaly with partially imaged pacer leads. Decreased attenuation of the cardiac blood pole suggestive of anemia. Trace pericardial effusion. Bibasilar atelectasis versus scarring with scattered subcentimeter solid pulmonary nodules redemonstrated measuring up to approximately 6 mm, unchanged. No pneumatosis or pneumoperitoneum. The unenhanced spleen, atrophic pancreas and adrenal glands are unchanged. Distended gallbladder with cholelithiasis. No definite gallbladder wall thickening. Unremarkable liver. Multifocal cortical scarring with parenchymal thinning and atrophy of the left kidney redemonstrated. 4 mm nonobstructing calculus of the inferior pole left kidney. Unchanged appearance of the right kidney. No hydronephrosis. Decompressed urinary bladder with circumferential wall thickening. Atherosclerosis of the aorta. No bowel obstruction. 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 Left lower quadrant disease is noted with a 4 cm focus on image 2:30 series 3, previously 2.4 cm. There is adjacent mild wall thickening of the descending sigmoid junction. Subcutaneous edema within the midline tissues superficial to the sacrum. No acute fracture, dislocation or osseous erosion. No abscess. Chronic L5 pars defects with grade 1 anterolisthesis. IMPRESSION: 1. Small sacral decubitus ulcer without abscess or CT evidence of acute osteomyelitis. 2. Findings compatible with patient's clinical history of lymphoma redemonstrated. Disease of the abdominal right lower quadrant with involvement of the adjacent abdominal wall has mildly improved from the comparison PET/CT while disease within the abdominal left lower quadrant has mildly progressed. 3. Cholelithiasis without sonographic evidence of acute cholecystitis. 4. Additional findings as above. ACT 112: Negative or not required by law. The above report was generated using voice recognition software. It may contain grammatical, syntax or spelling errors. Electronically signed by: Damion Oswald M.D. 09/08/2024 4:01 PM I & O Totals 24 Hours 09/08/24 09/09/24 09/10/24 06:59 06:59 06:59 Intake Total 3149.979 / 3149.979 662 / 662 Output Total 400 / 400 265 / 265 Balance 2749.979 / 2749.979 397 / 397 Cumulative 09/08/24 12:45 thru 09/09/24 10:37 Intake Total 3811.979 Output Total 665 Balance 3146.979 RT Ventilator Mngmt (Last Documented) Ventilator Ordered Settings Respiratory Rate 17 09/09/24 08:30 Ventilator - PT Measurements Respiratory Rate 17 Coding Level of Care Code 74527 CRITICAL CARE 1ST 30-74M Diagnoses Septic shock A41.9; R65.21 Pancytopenia D61.818 Acute UTI N39.0 B-cell lymphoblastic leukemia C91.00 Cardiac pacemaker Z95.0 Acute diastolic congestive heart failure, NYHA class 2 I50.31 Congestive heart failure chronicity: acute Diabetes mellitus, type II, insulin dependent E11.9; Z79.4 Hyperlipidemia E78.5 (6) Diastolic congestive heart failure, NYHA class 2 Congestive heart failure chronicity: acute Qualified Code(s): I50.31 - Acute diastolic (congestive) heart failure
[2024-09-09] MEDS: CALCIUM GLUCONATE 1,000 MG/60 ML BAG IV SCH (11:31)
--- NOTE | 2024-09-09 12:58 | Billing Data ---
Date of Service September 09, 2024 Coding Level of Care Code 76713 SUB INP/OBS CARE
[2024-09-09 17:02] LABS: Hematocrit (blood only) 26.3 % (37.0-47.0); Hemoglobin 8.8 g/dl (12.0-16.0)
[2024-09-09 17:09] LABS: BUN Creatinine Ratio 17.6 (10-20); Calcium 8.2 mg/dl (8.6-10.3); Creatinine Clr Calc Pharmacy 26.1 ml/min; Potassium 4.9 mmol/L (3.5-5.1)
--- NOTE | 2024-09-09 17:24 | XCELERA ---
[id number] \\[id number]
[2024-09-10 01:02] LABS: Hematocrit (blood only) 25.7 % (37.0-47.0); Hemoglobin 8.6 g/dl (12.0-16.0)
[2024-09-10 05:36] LABS: Hematocrit (blood only) 25.5 % (37.0-47.0); Hemoglobin 8.6 g/dl (12.0-16.0); Mean Corpuscular Hemoglobin 30.7 pg (25.0-34.0); Mean Corpuscular Hgb Conc 33.7 g/dL (32.0-36.0); Mean Corpuscular Volume 91.1 fL (80.0-100.0); Mean Platelet Volume 9.7 fL (9.4-12.4); Platelet Count 48 K/uL (130-400); RDW Coefficient of Variation 19.3 % (11.5-14.5); RDW Standard Deviation 61.7 fL (36.4-46.3); White Blood Count 5.32 K/ul (4.8-10.8)
[2024-09-10 05:53] LABS: Albumin Globulin Ratio 1.1 (0.9-2); Albumin Level 2.5 gm/dl (3.4-5.0); BUN Creatinine Ratio 17.8 (10-20); Bilirubin,Total 0.4 mg/dl (0.2-1.0); Calcium 8.2 mg/dl (8.6-10.3); Creatinine Clr Calc Pharmacy 24.3 ml/min; Globulin 2.3 gm/dl (2.5-4.0); Magnesium 1.9 mg/dl (1.7-2.4); Phosphorus 4.3 mg/dl (2.5-4.9); Potassium 4.7 mmol/L (3.5-5.1); Total Protein 4.8 gm/dl (6.0-8.3)
--- NOTE | 2024-09-10 06:00 | Electrocardiogram Report ---
Test Reason : Blood Pressure : */* mmHG Vent. Rate : 74 BPM Atrial Rate : 74 BPM P-R Int : 214 ms QRS Dur : 138 ms QT Int : 402 ms P-R-T Axes : 60 102 -82 degrees QTcB Int : 446 ms AV dual-paced rhythm with prolonged AV conduction Abnormal ECG When compared with ECG of 29-Aug-2024 06:22, Vent. rate has increased by 14 bpm Confirmed by Dashawn oLpez ([id number]) on 09/10/2024 6:00:53 AM Referred By: Confirmed By: Dashawn Lopez
[2024-09-10 06:05] LABS: Basophils # (auto) 0.01 K/uL (0.00-0.20); Basophils % (auto) 0.2 %; Immature Granulocytes # (auto) 0.07 K/uL (0.01-0.20); Immature Granulocytes % (auto) 1.3 %; Lymphocytes # (auto) 0.04 K/uL (1.20-3.40); Lymphocytes % (auto) 0.8 %; Monocytes # (auto) 0.25 K/uL (0.11-0.59); Monocytes % (auto) 4.7 %; Neutrophils # (auto) 4.95 K/uL (1.40-6.50); RBC Morphology Unremarkable
--- NOTE | 2024-09-10 07:54 | Hospitalist Progress Note ---
Date of Service September 10, 2024 Assessment & Plan (1) Septic shock: (2) Pancytopenia: (3) Acute UTI: (4) B-cell lymphoblastic leukemia: (5) Cardiac pacemaker: (6) Diastolic congestive heart failure, NYHA class 2: (7) Diabetes mellitus, type II, insulin dependent: (8) Hyperlipidemia: Plan Hypotension - Septic versus hypovolemic etiology, though leaning more towards the latter - Transferred to ICU due to need for pressors - Was on Levophed, but at time of evaluation pressors were not running and BP stable with adequate MAP. - Likely downgrade if BP/VS remain stable w/o vasopressors HARJINDER - Cr still increasing (1.99 yesterday to 2.14 today) - Suspect pre-renal versus ATN from prolonged hypoperfusion - Monitor am labs Anemia - Appears to be predominantly due to her lymphoma and/or treatment. Also has history of MAVERICK. - Hematology also concerned for possible slow GI bleed given hx of short intervals from PRBC transfusion to recurrence of symptomatic anemia w/ Hgb in similar range that lead to said previous transfusion - Hgb has been stable around 8 and patient denies abdominal pain - Transfusion threshold of Hgb 8 - Consider Venofer for management of anemia; consider additional transfusion for optimization og Hgb prior to discharge - Monitor am labs Acute dehydration - Related to poor p.o. intake - S/p transfusion of 2 units of irradiated PRBC; no IVF at the time - Possible that worsening HARJINDER is still related to dehydration; consider resuming IVF as management at slow rate given mildly reduced ejection fraction noted in TTE yesterday (EF 35-40%) B-cell lymphoma - Follow outpatient with Dr. Bliss - Is not entirely clear how much of the lymphoma itself and/or lymphoma treatments may be provoking her anemia compared to the iron deficiency as well Admission and Anticipated Discharge Date Admission Date: September 08, 2024 Supervising Physician Co-Signing Physician Notes I personally examined the patient and verified all bustillo points of history and exam, discussed case, and agree with decision making with Dr Oneill feeling reasonably well. Ate most of a slice of pizza. Family present. Updated and answered all questions to the best my ability. Vitals noted, in general she is awake and alert pleasant no distress, fatigued appearing. HEENT normocephalic atraumatic mucous membranes moist. Breathing unlabored no accessory muscle use good effort. Skin without rashes pallor or icterus. Neuro without focal deficits. Labs and diagnostics noted. Hypotensionlikely multifactorial but predominantly hypovolemia from dehydration/HARJINDER and anemianow improved. Off pressors. Safe for transfer out of ICU. Obviously holding antihypertensives/diuretics/etc. at this time anemiahemoglobin better. Most likely a combination of slow GI losses from mass, and hypoproliferative from lymphoma/iron deficiency. holding aspirin. Giving IV iron. Will need follow-up with lymphoma specialist at [place] rescheduled dehydration/HARJINDER/hyperkalemia/moderate protein calorie malnutritiongiven her creatinine holding steady rather than improving I suspect an element of ATN. At the same time she now looks euvolemic and is eating and drinking better. Extensive discussions on nutrition and hydration with patient and family. Dietitian consult pending doubtful UTIhold Rocephin and follow Subjective Patient evaluated in the ICU and found to be AAOx3, afebrile, and in NAD. States that she is still feeling weak but not worse (or better) than yesterday. Denies having chest/abdominal pain, fevers or chills, nausea or vomiting. Ate cereal this morning and tolerated well, and is looking forward to lunch time since she'll get more hearty meal. Pressors were not running at the time of evaluation and BP stable with MAP in good range. Review of Systems Review of Systems: as per HPI. Physical Exam Constitutional: Awake and alert, in no acute distress Eyes: PERRL, EOMI ENMT: Oral mucosa moist. Respiratory: Lungs clear to auscultation b/l, no wheezing, rales, rhonchi Cardiovascular: RRR, no murmurs, rubs, gallops. Radial + pedal pulses intact. L arm hematoma. No edema Results & Data Results & Data Vital Signs (Past 12 Hours) Vital Signs Temp Pulse Resp BP Pulse Ox O2 Del Method 09/10/24 07:00 36.8 C 09/10/24 04:30 /67 09/10/24 04:30 09/10/24 04:30 09/10/24 04:27 36.4 C L 62 14 97 09/10/24 04:03 36.4 C L 60 16 97 09/10/24 04:00 112/53 L 09/10/24 04:00 112/53 L 09/10/24 03:51 36.4 C L 61 14 96 09/10/24 03:30 109/58 L 09/10/24 03:27 36.5 C 61 18 97 09/10/24 02:30 108/55 L 09/10/24 02:30 108/55 L 09/10/24 02:12 36.7 C 60 16 96 09/10/24 02:09 36.7 C 60 20 97 09/10/24 02:00 102/54 L 09/10/24 01:51 36.7 C 60 16 97 09/10/24 01:36 36.7 C 60 15 96 09/10/24 01:30 110/56 L 09/10/24 01:30 110/56 L 09/10/24 01:21 36.7 C 63 17 97 09/10/24 01:00 36.8 C 60 15 96 09/10/24 01:00 105/52 L 09/10/24 01:00 105/52 L 09/10/24 00:30 100/51 L 09/10/24 00:30 100/51 L 09/10/24 00:30 100/51 L 09/10/24 00:30 100/51 L 09/10/24 00:30 100/51 L 09/10/24 00:30 36.8 C 64 16 97 09/10/24 00:24 36.8 C 60 14 96 09/10/24 00:00 97/49 L 09/09/24 23:54 36.8 C 62 14 97 09/09/24 23:45 60 09/09/24 23:30 93/56 L 09/09/24 23:30 93/56 L 09/09/24 23:30 36.9 C 63 13 97 09/09/24 23:00 97/55 L 09/09/24 23:00 36.9 C 63 17 97 09/09/24 22:30 95/46 L 09/09/24 22:27 36.9 C 61 16 96 09/09/24 22:12 36.9 C 60 19 97 09/09/24 22:00 109/56 L 09/09/24 21:48 37.0 C 60 17 96 09/09/24 21:09 37.1 C 61 14 95 09/09/24 21:00 106/59 L 09/09/24 21:00 106/59 L 09/09/24 20:51 37.1 C 60 15 96 09/09/24 20:45 Room Air 09/09/24 20:30 112/55 L 09/09/24 20:30 37.2 C 60 15 96 09/09/24 20:06 37.2 C 63 18 96 Resident Activity Tracking Resident Involvement: Resident Care Provided Care Provided: Adult Hospital Medicine (6) Diastolic congestive heart failure, NYHA class 2 Congestive heart failure chronicity: acute Qualified Code(s): I50.31 - Acute diastolic (congestive) heart failure
[2024-09-10] MEDS ORDERED: HEPARIN 100 UNIT/ML 5ML FLUSH FLUSH PRN (10:56)
--- NOTE | 2024-09-10 11:10 | Critical Care Progress Note ---
Date of Service September 10, 2024 Assessment & Plan (1) Septic shock: (2) Pancytopenia: (3) Acute UTI: (4) B-cell lymphoblastic leukemia: (5) Cardiac pacemaker: (6) Diastolic congestive heart failure, NYHA class 2: (7) Diabetes mellitus, type II, insulin dependent: (8) Hyperlipidemia: Plan Reason Critically Ill: Patient is a 73-year-old female with complex past medical history significant for B-cell lymphoma, aortic stenosis (TAVR), anemia with routine transfusions, DM type II, CHF, HTN, HLD, pacemaker, GI bleeding who presents to the ICU as a transfer from floor after patient was found to be hypotensive requiring vasopressor support. 24-hour events: Patient continued on antibiotics. She has been afebrile. Hemodynamics have improved and she has been able to be weaned off of vasopressor agents. Recommendations: Neuro -no acute issues. Patient is profoundly deconditioned and will require physical therapy and Occupational Therapy evaluations. Out of bed to chair as tolerated. Cardiac -echo reviewed. Not significantly changed from prior. Hemodynamics improved now with the patient being off vasopressor agents. Initiate steroid taper over the next 5 days. Will add midodrine given her borderline hemodynamics. Appears euvolemic to slightly volume down. Status post pacemaker. No anticoagulation given prior history of GI bleed and thrombocytopenia. Established with [facility] cardiology and will consult them if ongoing cardiac issues Respiratory -remote history of sarcoid. Not clinically active. Continue oxygen as needed. Will need pulmonary toilet including incentive spirometry GI -tolerating diet. RENAL/LYTES -progressive renal insufficiency noted this morning. Electrolytes, acid-base, and volume status acceptable. Unclear if this could be related to her transient hypotension. Will continue to trend. May consider involvement of nephrology if renal indices continue to worsen. - Foleystrict I's and O's HEME -B-cell lymphoma currently undergoing therapy. No transfusion requirement in the last 24 hours. White blood cell count improving however platelet count remains low. ID -suspect urinary source. Cultures no growth to date. Would complete 5 days of Rocephin. ENDO - glycemic control per protocol. On Florinef and hydrocortisone for relative adrenal insufficiency. LINES/IV ACCESS - Right subclavian port, peripheral IVs DVT PROPHYLAXIS - SCDs, hold anticoagulation as patient is currently anemic receiving transfusions with thrombocytopenia as well Will see how the patient responds this morning. If she is able to maintain off of vasoactive medications, can likely transfer to the floor under the care of the hospitalist at which point in time critical care will sign off. Admission and Anticipated Discharge Date Admission Date: September 08, 2024 Subjective Patient seen and examined. EMR reviewed. Discussed on multidisciplinary rounds and with bedside critical care nurse as well as with patient at bedside. The patient continues to feel poorly but better than yesterday. Her biggest complaint currently is her decubitus ulcer over her sacrum. She is tolerating a diet but does not have much of an appetite. No chest pain or palpitations. No nausea or vomiting. No abdominal pain. She continues to complain of generalized weakness. Review of Systems Review of Systems: All systems reviewed & are unremarkable except as noted in Subjective Physical Exam Constitutional: cooperative and comfortable Eyes: PERRL, conjunctivae normal, anicteric sclerae ENMT: external ear and nose normal, oropharynx normal Neck: trachea midline, no thyromegaly Respiratory: normal respiratory effort, lungs clear to auscultation Cardiovascular: Heart Sounds: + click Extremities: no edema Gastrointestinal (Abdomen): normal bowel sounds, soft, nontender, no hepatosplenomegaly Musculoskeletal: no cyanosis or clubbing, extremities motor strength 5/5 Neurologic: PERRL, EOMI, accommodation nl, no face palsy, no dysarthria Psychiatric: A+Ox3, euthymic affect Results & Data Results & Data Vital Signs (Past 12 Hours) Vital Signs Temp Pulse Resp BP Pulse Ox Pulse Ox O2 Del Method 09/10/24 09:30 36.6 C 61 27 H 99 09/10/24 09:30 108/50 L 09/10/24 09:30 108/50 L 09/10/24 09:30 108/50 L 09/10/24 09:00 36.6 C 60 17 98 09/10/24 09:00 101/52 L 09/10/24 08:30 101/49 L 09/10/24 08:30 101/49 L 09/10/24 08:30 36.5 C 65 17 97 09/10/24 08:03 36.4 C L 60 20 98 09/10/24 08:00 102/48 L 09/10/24 08:00 102/48 L 09/10/24 08:00 Room Air 09/10/24 08:00 62 12/18/24 08:00 95 09/10/24 07:00 36.8 C 09/10/24 04:30 103/67 09/10/24 04:30 103/67 09/10/24 04:30 103/67 09/10/24 04:27 36.4 C L 62 14 97 09/10/24 04:03 36.4 C L 60 16 97 09/10/24 04:00 112/53 L 09/10/24 04:00 112/53 L 09/10/24 03:51 36.4 C L 61 14 96 09/10/24 03:30 109/58 L 09/10/24 03:27 36.5 C 61 18 97 09/10/24 02:30 108/55 L 09/10/24 02:30 108/55 L 09/10/24 02:12 36.7 C 60 16 96 09/10/24 02:09 36.7 C 60 20 97 09/10/24 02:00 102/54 L 09/10/24 01:51 36.7 C 60 16 97 09/10/24 01:36 36.7 C 60 15 96 09/10/24 01:30 110/56 L 09/10/24 01:30 110/56 L 09/10/24 01:21 36.7 C 63 17 97 09/10/24 01:00 36.8 C 60 15 96 09/10/24 01:00 105/52 L 09/10/24 01:00 105/52 L 09/10/24 00:30 100/51 L 09/10/24 00:30 100/51 L 09/10/24 00:30 100/51 L 09/10/24 00:30 100/51 L 09/10/24 00:30 100/51 L 09/10/24 00:30 36.8 C 64 16 97 09/10/24 00:24 36.8 C 60 14 96 09/10/24 00:00 97/49 L 09/09/24 23:54 36.8 C 62 14 97 09/09/24 23:45 60 09/09/24 23:30 93/56 L 09/09/24 23:30 93/56 L 09/09/24 23:30 36.9 C 63 13 97 O2 Del Method 09/10/24 09:30 09/10/24 09:30 09/10/24 09:30 09/10/24 09:30 09/10/24 09:00 09/10/24 09:00 09/10/24 08:30 09/10/24 08:30 09/10/24 08:30 09/10/24 08:03 09/10/24 08:00 09/10/24 08:00 09/10/24 08:00 09/10/24 08:00 09/10/24 08:00 Room Air 09/10/24 07:00 09/10/24 04:30 09/10/24 04:30 09/10/24 04:30 09/10/24 04:27 09/10/24 04:03 09/10/24 04:00 09/10/24 04:00 09/10/24 03:51 09/10/24 03:30 09/10/24 03:27 09/10/24 02:30 09/10/24 02:30 09/10/24 02:12 09/10/24 02:09 09/10/24 02:00 09/10/24 01:51 09/10/24 01:36 09/10/24 01:30 09/10/24 01:30 09/10/24 01:21 09/10/24 01:00 09/10/24 01:00 09/10/24 01:00 09/10/24 00:30 09/10/24 00:30 09/10/24 00:30 09/10/24 00:30 09/10/24 00:30 09/10/24 00:30 09/10/24 00:24 09/10/24 00:00 09/09/24 23:54 09/09/24 23:45 09/09/24 23:30 09/09/24 23:30 09/09/24 23:30 Critical Care Results & Data Vital Signs (Past 12 Hours) Vital Signs Temp Pulse Resp BP Pulse Ox Pulse Ox O2 Del Method 09/10/24 09:30 36.6 C 61 27 H 99 09/10/24 09:30 108/50 L 09/10/24 09:30 108/50 L 09/10/24 09:30 108/50 L 09/10/24 09:00 36.6 C 60 17 98 09/10/24 09:00 101/52 L 09/10/24 08:30 101/49 L 09/10/24 08:30 101/49 L 09/10/24 08:30 36.5 C 65 17 97 09/10/24 08:03 36.4 C L 60 20 98 09/10/24 08:00 102/48 L 09/10/24 08:00 102/48 L 09/10/24 08:00 Room Air 09/10/24 08:00 62 09/10/24 08:00 95 09/10/24 07:00 36.8 C 09/10/24 04:30 103/67 09/10/24 04:30 103/67 09/10/24 04:30 103/67 09/10/24 04:27 36.4 C L 62 14 97 09/10/24 04:03 36.4 C L 60 16 97 09/10/24 04:00 112/53 L 09/10/24 04:00 112/53 L 09/10/24 03:51 36.4 C L 61 14 96 09/10/24 03:30 109/58 L 09/10/24 03:27 36.5 C 61 18 97 09/10/24 02:30 108/55 L 09/10/24 02:30 108/55 L 09/10/24 02:12 36.7 C 60 16 96 09/10/24 02:09 36.7 C 60 20 97 09/10/24 02:00 102/54 L 09/10/24 01:51 36.7 C 60 16 97 09/10/24 01:36 36.7 C 60 15 96 09/10/24 01:30 110/56 L 09/10/24 01:30 110/56 L 09/10/24 01:21 36.7 C 63 17 97 09/10/24 01:00 36.8 C 60 15 96 09/10/24 01:00 105/52 L 09/10/24 01:00 105/52 L 09/10/24 00:30 100/51 L 09/10/24 00:30 100/51 L 09/10/24 00:30 100/51 L 09/10/24 00:30 100/51 L 09/10/24 00:30 100/51 L 09/10/24 00:30 36.8 C 64 16 97 09/10/24 00:24 36.8 C 60 14 96 09/10/24 00:00 97/49 L 09/09/24 23:54 36.8 C 62 14 97 09/09/24 23:45 60 09/09/24 23:30 93/56 L 09/09/24 23:30 93/56 L 09/09/24 23:30 36.9 C 63 13 97 O2 Del Method 09/10/24 09:30 09/10/24 09:30 09/10/24 09:30 09/10/24 09:30 09/10/24 09:00 09/10/24 09:00 09/10/24 08:30 09/10/24 08:30 09/10/24 08:30 09/10/24 08:03 09/10/24 08:00 09/10/24 08:00 09/10/24 08:00 09/10/24 08:00 09/10/24 08:00 Room Air 09/10/24 07:00 09/10/24 04:30 09/10/24 04:30 09/10/24 04:30 09/10/24 04:27 09/10/24 04:03 09/10/24 04:00 09/10/24 04:00 09/10/24 03:51 09/10/24 03:30 09/10/24 03:27 09/10/24 02:30 09/10/24 02:30 09/10/24 02:12 09/10/24 02:09 09/10/24 02:00 09/10/24 01:51 09/10/24 01:36 09/10/24 01:30 09/10/24 01:30 09/10/24 01:21 09/10/24 01:00 09/10/24 01:00 09/10/24 01:00 09/10/24 00:30 09/10/24 00:30 09/10/24 00:30 09/10/24 00:30 09/10/24 00:30 09/10/24 00:30 09/10/24 00:24 09/10/24 00:00 09/09/24 23:54 09/09/24 23:45 09/09/24 23:30 09/09/24 23:30 09/09/24 23:30 Lab & Micro Results (Past 24 Hours) RBC 2.80 M/uL (4.20-5.40) L 09/10/24 WBC 5.32 K/ul (4.8-10.8) 09/10/24 Hgb 8.6 g/dl (12.0-16.0) L 09/10/24 Hct 25.5 % (37.0-47.0) L 09/10/24 MCV 91.1 fL (80.0-100.0) 09/10/24 MCH 30.7 pg (25.0-34.0) 09/10/24 MCHC 33.7 g/dL (32.0-36.0) 09/10/24 RDW Standard Deviation 61.7 fL (36.4-46.3) H 09/10/24 RDW Coefficient of Variation 19.3 % (11.5-14.5) H 09/10/24 Plt Count 48 K/uL (130-400) L 09/10/24 MPV 9.7 fL (9.4-12.4) 09/10/24 Neutrophils (%) (Auto) 93.0 % 09/10/24 Lymphocytes (%) (Auto) 0.8 % 09/10/24 Monocytes # (Auto) 0.25 K/uL (0.11-0.59) 09/10/24 Eosinophils # (Auto) 0.00 K/uL (0.00-0.50) 09/10/24 Immature Granulocyte % (Auto) 1.3 % 09/10/24 Neutrophils # (Auto) 4.95 K/uL (1.40-6.50) 09/10/24 Lymphocytes # (Auto) 0.04 K/uL (1.20-3.40) L 09/10/24 Monocytes # (Auto) 0.25 K/uL (0.11-0.59) 09/10/24 Eosinophils # (Auto) 0.00 K/uL (0.00-0.50) 09/10/24 Basophils # (Auto) 0.01 K/uL (0.00-0.20) 09/10/24 Immature Granulocyte # (Auto) 0.07 K/uL (0.01-0.20) 4 Red Blood Cell Morphology Unremarkable 09/10/24 Na 133 mmol/L (136-145) L 09/10/24 K 4.7 mmol/L (3.5-5.1) 09/10/24 Cl 104 mmol/L (98-107) 09/10/24 CO2 20 mmol/L (21-32) L 09/10/24 Anion Gap 9 (3-11) 09/10/24 BUN 38 mg/dl (6-23) H 09/10/24 Creatinine 2.14 mg/dl (0.6-1.2) H 09/10/24 BUN/Creatinine Ratio 17.8 (10-20) 09/10/24 Glu 142 mg/dl (70-99(Fasting)) H 09/10/24 Ca 8.2 mg/dl (8.6-10.3) L 09/10/24 Phosphorus Level 4.3 mg/dl (2.5-4.9) 09/10/24 Total Bilirubin 0.4 mg/dl (0.2-1.0) 09/10/24 AST 48 U/L (13-39) H 09/10/24 ALT 45 U/L (7-52) 09/10/24 Alkaline Phosphatase 84 U/L (34-104) 09/10/24 TP 4.8 gm/dl (6.0-8.3) L 09/10/24 Albumin 2.5 gm/dl (3.4-5.0) L 09/10/24 Globulin 2.3 gm/dl (2.5-4.0) L 09/10/24 Albumin/Globulin Ratio 1.1 (0.9-2) 09/10/24 Mg 1.9 mg/dl (1.7-2.4) 09/10/24 05:20 Calcium Level 8.2 mg/dl (8.6-10.3) L 09/10/24 05:20 Microbiology 09/08/24 13:50 Aerobic Blood Culture - Preliminary Blood No growth in Aerobic bottle after 24 hours. Anaerobic Blood Culture - Preliminary No growth in Anaerobic bottle after 24 hours. 09/08/24 13:45 Aerobic Blood Culture - Preliminary Blood No growth in Aerobic bottle after 24 hours. Anaerobic Blood Culture - Preliminary No growth in Anaerobic bottle after 24 hours. 09/08/24 14:10 Urine Culture - Preliminary Urine,Indwelling Cath No growth - Less than 1,000 colonies/mL, Final report to follow. I & O Totals 24 Hours 09/09/24 09/10/24 09/11/24 06:59 06:59 06:59 Intake Total 3149.979 / 3149.979 1362.827 / 1362.827 257.1 / 257.1 Output Total 400 / 400 1315 / 1315 200 / 200 Balance 2749.979 / 2749.979 47.827 / 47.827 57.1 / 57.1 Cumulative 09/08/24 12:45 thru 09/10/24 10:00 Intake Total 4769.906 Output Total 1915 Balance 2854.906 RT Ventilator Mngmt (Last Documented) Ventilator Ordered Settings Respiratory Rate 27 09/10/24 09:30 Ventilator - PT Measurements Respiratory Rate 27 Coding Level of Care Code 21997 SUB INP/OBS CARE 3/50MIN Diagnoses Septic shock A41.9; R65.21 Pancytopenia D61.818 Acute UTI N39.0 B-cell lymphoblastic leukemia C91.00 Cardiac pacemaker Z95.0 Acute diastolic congestive heart failure, NYHA class 2 I50.31 Congestive heart failure chronicity: acute Diabetes mellitus, type II, insulin dependent E11.9; Z79.4 Hyperlipidemia E78.5 (6) Diastolic congestive heart failure, NYHA class 2 Congestive heart failure chronicity: acute Qualified Code(s): I50.31 - Acute diastolic (congestive) heart failure
[2024-09-10] MEDS: MIDODRINE HCL 2.5 MG TAB PO SCH (12:03)
[2024-09-10] MEDS: HYDROCORTISONE SOD 50 MG in SYRINGE 0 ML IV SCH (16:45)
--- NOTE | 2024-09-10 16:50 | Billing Data ---
Date of Service September 10, 2024 Coding Level of Care Code 80611 SUB INP/OBS CARE
[2024-09-11 07:03] LABS: Hematocrit (blood only) 26.1 % (37.0-47.0); Hemoglobin 8.5 g/dl (12.0-16.0); Mean Corpuscular Hemoglobin 29.8 pg (25.0-34.0); Mean Corpuscular Hgb Conc 32.6 g/dL (32.0-36.0); Mean Corpuscular Volume 91.6 fL (80.0-100.0); Mean Platelet Volume 10.7 fL (9.4-12.4); Platelet Count 47 K/uL (130-400); RDW Coefficient of Variation 19.5 % (11.5-14.5); RDW Standard Deviation 62.4 fL (36.4-46.3); Red Blood Count 2.85 M/uL (4.20-5.40); White Blood Count 5.42 K/ul (4.8-10.8)
[2024-09-11 07:28] LABS: BUN Creatinine Ratio 23.6 (10-20); Calcium 8.2 mg/dl (8.6-10.3); Creatinine Clr Calc Pharmacy 24.8 ml/min; Potassium 4.4 mmol/L (3.5-5.1)
[2024-09-11 07:35] LABS: Basophils # (auto) 0.01 K/uL (0.00-0.20); Basophils % (auto) 0.2 %; Immature Granulocytes # (auto) 0.09 K/uL (0.01-0.20); Immature Granulocytes % (auto) 1.7 %; Lymphocytes # (auto) 0.02 K/uL (1.20-3.40); Lymphocytes % (auto) 0.4 %; Monocytes # (auto) 0.25 K/uL (0.11-0.59); Monocytes % (auto) 4.6 %; Neutrophils # (auto) 5.05 K/uL (1.40-6.50); Neutrophils % (auto) 93.1 %
[2024-09-11] MEDS: IRON SUCROSE 300 MG in SODIUM CHLORIDE 0.9% 250 ML IV ONE (08:48)
[2024-09-11] MEDS: HYDROCORTISONE SOD 50 MG in SYRINGE 0 ML IV SCH (09:19)
[2024-09-11] MEDS ORDERED: HYDROCORTISONE SOD 50 MG in SYRINGE 0 ML IV SCH (09:45)
--- NOTE | 2024-09-11 10:05 | Hospitalist Progress Note ---
Date of Service September 11, 2024 Assessment & Plan (1) Septic shock: (2) Pancytopenia: (3) Acute UTI: (4) B-cell lymphoblastic leukemia: (5) Cardiac pacemaker: (6) Diastolic congestive heart failure, NYHA class 2: (7) Diabetes mellitus, type II, insulin dependent: (8) Hyperlipidemia: Plan Hypotension - BP now stable without vasopressors - Continue PO nutrition and hydration - Continue weaning of hydrocortisone and other until BP remains stable w/o need for meds Anemia - Appears to be predominantly due to her lymphoma and/or treatment. Also has history of MAVERICK. - S/p transfusion of 2 units of irradiated PRBC - Hgb has been stable around 8 and patient denies abdominal pain - Continue IV iron; may consider transfusion of PRBC before discharge for optimization of hgb - Monitor am labs HARJINDER - Cr now stable ~2 - Suspect pre-renal versus ATN from prolonged hypoperfusion - Monitor am labs Acute dehydration - Related to poor p.o. intake - Continue to encourage PO intake Deconditioning - PT/OT ordered B-cell lymphoma - Follow outpatient with Dr. Bliss - Is not entirely clear how much of the lymphoma itself and/or lymphoma treatments may be provoking her anemia compared to the iron deficiency as well Admission and Anticipated Discharge Date Admission Date: September 08, 2024 Supervising Physician Co-Signing Physician Notes I personally examined the patient and verified all bustillo points of history and exam, discussed case, and agree with decision making with Dr Oneill feeling reasonably well. no new issues. friends present at bedside, discussions situation with them as well w patient's permission Vitals noted, in general she is awake and alert pleasant no distress, fatigued appearing. HEENT normocephalic atraumatic mucous membranes moist. Breathing unlabored no accessory muscle use good effort. Skin without rashes pallor or icterus. Neuro without focal deficits. Labs and diagnostics noted. Hypotensionlikely multifactorial but predominantly hypovolemia from dehydration/HARJINDER and anemianow improved. weaning steroids, midodrine, florinef Obviously holding antihypertensives/diuretics/etc. at this time anemiahemoglobin better. Most likely a combination of slow GI losses from mass, and hypoproliferative from lymphoma/iron deficiency. holding aspirin. Giving IV iron. Will need follow-up with lymphoma specialist at [facility] eduled dehydration/HARJINDER/hyperkalemia/moderate protein calorie malnutritiongiven her creatinine holding steady rather than improving I suspect an element of ATN. At the same time she now looks euvolemic and is eating and drinking better. Extensive discussions on nutrition and hydration with patient and family on 09/10, reiterated briefly today. Dietitian consult appreciated doubtful UTIholding Rocephin and follow PT/OT eval and treat Subjective Evaluated at bedside and found to be AAOx3, afebrile, and in NAD. Still feeling weak but no worse than yesterday. Eating well. No other concerns or overnight events. Review of Systems Review of Systems: as per HPI. Physical Exam Constitutional: Awake and alert, in no acute distress Eyes: PERRL, EOMI ENMT: Oral mucosa moist. Respiratory: Lungs clear to auscultation b/l, no wheezing, rales, rhonchi Cardiovascular: RRR, no murmurs, rubs, gallops. Radial + pedal pulses intact. L arm hematoma. No edema Results & Data Results & Data Vital Signs (Past 12 Hours) Vital Signs Temp Pulse Pulse Resp BP Pulse Ox O2 Del Method 09/11/24 08:22 36.9 C 60 18 100/54 L 96 Room Air 09/11/24 03:11 36.5 C 70 17 122/83 95 Room Air 09/11/24 00:16 Room Air 09/11/24 00:16 60 09/11/24 00:11 36.8 C 60 18 136/94 93 Room Air Resident Activity Tracking Resident Involvement: Resident Care Provided Care Provided: Adult Hospital Medicine (6) Diastolic congestive heart failure, NYHA class 2 Congestive heart failure chronicity: acute Qualified Code(s): I50.31 - Acute diastolic (congestive) heart failure
[2024-09-11] MEDS ORDERED: DEXTROSE 50% 50 ML SYRINGE IV PRN (11:55)
[2024-09-11] MEDS ORDERED: GLUCAGON FOR INJ 1 MG VIAL SQ PRN (11:55)
[2024-09-11] MEDS ORDERED: GLUCOSE 40% GEL 15 GM TUBE PO PRN (11:55)
[2024-09-11] MEDS ORDERED: GLUCOSE 10 TAB/TUBE PO PRN (11:55)
[2024-09-11] MEDS: INSULIN ASPART PER UNIT CHARGE ONE (16:54)
[2024-09-11] MEDS: INSULIN ASPART PER UNIT CHARGE SC SCH (16:55)
--- NOTE | 2024-09-11 17:38 | Billing Data ---
Date of Service September 11, 2024 Coding Level of Care Code 73072 SUB INP/OBS CARE
[2024-09-11] MEDS: LANTUS PER UNIT CHARGE SQ SCH (20:40)
[2024-09-12 05:08] LABS: Hemoglobin 9.3 g/dl (12.0-16.0); Mean Corpuscular Hemoglobin 29.8 pg (25.0-34.0); Mean Corpuscular Hgb Conc 32.1 g/dL (32.0-36.0); Mean Corpuscular Volume 92.9 fL (80.0-100.0); Mean Platelet Volume 9.8 fL (9.4-12.4); Platelet Count 49 K/uL (130-400); RDW Coefficient of Variation 19.8 % (11.5-14.5); RDW Standard Deviation 64.4 fL (36.4-46.3); Red Blood Count 3.12 M/uL (4.20-5.40); White Blood Count 6.17 K/ul (4.8-10.8)
[2024-09-12 05:33] LABS: Basophils # (auto) 0.02 K/uL (0.00-0.20); Basophils % (auto) 0.3 %; Eosinophils # (auto) 0.03 K/uL (0.00-0.50); Eosinophils % (auto) 0.5 %; Immature Granulocytes # (auto) 0.14 K/uL (0.01-0.20); Immature Granulocytes % (auto) 2.3 %; Lymphocytes # (auto) 0.05 K/uL (1.20-3.40); Lymphocytes % (auto) 0.8 %; Monocytes # (auto) 0.35 K/uL (0.11-0.59); Monocytes % (auto) 5.7 %; Neutrophils # (auto) 5.58 K/uL (1.40-6.50); Neutrophils % (auto) 90.4 %; Polychromasia 1+
--- NOTE | 2024-09-12 10:09 | Hospitalist Progress Note ---
Date of Service September 12, 2024 Assessment & Plan (1) Septic shock: (2) Pancytopenia: (3) Acute UTI: (4) B-cell lymphoblastic leukemia: (5) Cardiac pacemaker: (6) Diastolic congestive heart failure, NYHA class 2: (7) Diabetes mellitus, type II, insulin dependent: (8) Hyperlipidemia: Plan Deconditioning - PT/OT ordered - Likely discharge to [facility] versus return to [facility] Hypotension - BP now stable without vasopressors - Continue PO nutrition and hydration - Continue weaning of hydrocortisone and other until BP remains stable w/o need for meds Anemia - Appears to be predominantly due to her lymphoma and/or treatment. Also has history of MAVERICK. - S/p transfusion of 2 units of irradiated PRBC - Hgb has been stable and today Hgb was 9.3 - Monitor am labs HARJINDER - Cr now stable ~2 - Suspect pre-renal versus ATN from prolonged hypoperfusion - Monitor am labs Acute dehydration - Related to poor p.o. intake - Continue to encourage PO intake B-cell lymphoma - Follow outpatient with Dr. Bliss Admission and Anticipated Discharge Date Admission Date: September 08, 2024 Supervising Physician Co-Signing Physician Notes I personally examined the patient and verified all bustillo points of history and exam, discussed case, and agree with decision making with Dr Oneill Feeling okay. Did better with therapy then I think she expected. Would like to go to [facility] for formal rehab if at all possible. Denies any new needs. Trying to eat more each day. Vitals noted, in general she is awake and alert pleasant no distress, fatigued appearing. HEENT normocephalic atraumatic mucous membranes moist. Breathing unlabored no accessory muscle use good effort. Skin without rashes pallor or icterus. Neuro without focal deficits. Labs and diagnostics noted. Hypotensionlikely multifactorial but predominantly hypovolemia from dehydration/HARJINDER and anemianow improved. weaning steroids, midodrine, florinef Obviously holding antihypertensives/diuretics/etc. at this time. Showing improvement. anemiahemoglobin better. 9.3 today. Most likely a combination of slow GI losses from mass, and hypoproliferative from lymphoma/iron deficiency. holding aspirin. Giving IV iron again today. Will need follow-up with lymphoma specialist at [place] rescheduled dehydration/HARJINDER/hyperkalemia/moderate protein calorie malnutritiongiven her creatinine holding steady rather than improving I suspect an element of ATN. At the same time she now looks euvolemic and is eating and drinking better. Extensive discussions on nutrition and hydration with patient and family on 09/10,encouraged ongoing intake. Dietitian consult appreciated doubtful UTIholding Rocephin and follow but no sx developing PT/OT eval and treat Subjective Evaluated at bedside and found to be AAOx3, afebrile, and in NAD. Still feeling weak but no worse than yesterday. Eating well. No other concerns or overnight events. Review of Systems Review of Systems: as per HPI. Physical Exam Constitutional: Awake and alert, in no acute distress Eyes: PERRL, EOMI ENMT: Oral mucosa moist. Respiratory: Lungs clear to auscultation b/l, no wheezing, rales, rhonchi Cardiovascular: RRR, no murmurs, rubs, gallops. Radial + pedal pulses intact. L arm hematoma. No edema Results & Data Results & Data Vital Signs (Past 12 Hours) Vital Signs Temp Pulse Pulse Resp BP Pulse Ox Pulse Ox 09/12/24 08:00 94 09/12/24 07:23 60 09/12/24 07:19 36.2 C L 63 16 116/62 96 09/12/24 00:02 36.3 C L 60 18 126/69 95 09/12/24 00:00 60 O2 Del Method O2 Del Method 09/12/24 08:00 Room Air 09/12/24 07:23 09/12/24 07:19 Room Air 09/12/24 00:02 Room Air 09/12/24 00:00 Resident Activity Tracking Resident Involvement: Resident Care Provided Care Provided: Adult Hospital Medicine (6) Diastolic congestive heart failure, NYHA class 2 Congestive heart failure chronicity: acute Qualified Code(s): I50.31 - Acute diastolic (congestive) heart failure
--- NOTE | 2024-09-12 18:24 | Billing Data ---
Date of Service September 12, 2024 Coding Level of Care Code 58632 SUB INP/OBS CARE MIN
[2024-09-12] MEDS: IRON SUCROSE 300 MG in SODIUM CHLORIDE 0.9% 250 ML IV ONE (19:20)
[2024-09-12] MEDS: bisacodyL 5 MG TABEC PO PRN (21:15)
[2024-09-13] MEDS: MIDODRINE HCL 2.5 MG TAB PO SCH (06:09)
[2024-09-13] MEDS: CARBOHYDRATES FOR HYPOGLYCEMIA PO PRN (08:15)
[2024-09-13 08:26] LABS: Basophils # (auto) 0.01 K/uL (0.00-0.20); Basophils % (auto) 0.2 %; Eosinophils # (auto) 0.05 K/uL (0.00-0.50); Eosinophils % (auto) 0.8 %; Hematocrit (blood only) 29.7 % (37.0-47.0); Hemoglobin 9.6 g/dl (12.0-16.0); Immature Granulocytes # (auto) 0.12 K/uL (0.01-0.20); Lymphocytes # (auto) 0.05 K/uL (1.20-3.40); Lymphocytes % (auto) 0.8 %; Mean Corpuscular Hemoglobin 30.1 pg (25.0-34.0); Mean Corpuscular Hgb Conc 32.3 g/dL (32.0-36.0); Mean Corpuscular Volume 93.1 fL (80.0-100.0); Mean Platelet Volume 10.5 fL (9.4-12.4); Monocytes # (auto) 0.38 K/uL (0.11-0.59); Monocytes % (auto) 6.2 %; Neutrophils # (auto) 5.49 K/uL (1.40-6.50); Platelet Count 51 K/uL (130-400); RDW Coefficient of Variation 19.4 % (11.5-14.5); RDW Standard Deviation 63.8 fL (36.4-46.3); Red Blood Count 3.19 M/uL (4.20-5.40)
--- NOTE | 2024-09-13 08:36 | Hospitalist Progress Note ---
Date of Service September 13, 2024 Assessment & Plan (1) Septic shock: (2) Pancytopenia: (3) Acute UTI: (4) B-cell lymphoblastic leukemia: (5) Cardiac pacemaker: (6) Diastolic congestive heart failure, NYHA class 2: (7) Diabetes mellitus, type II, insulin dependent: (8) Hyperlipidemia: Plan Deconditioning - PT/OT ordered - Likely discharge to [facility] versus return to [facility] Hypoglycemia - Patient hypoglycemic in the morning; asymptomatic - Still eating and drinking well - Will adjust insulin regimen to prevent repeat episodes of hypoglycemia Hypotension -- Resolved - BP now stable without vasopressors - Continue PO nutrition and hydration - Continue weaning of hydrocortisone and other until BP remains stable w/o need for meds Anemia - Appears to be predominantly due to her lymphoma and/or treatment. Also has history of MAVERICK. - S/p transfusion of 2 units of irradiated PRBC on 09/08/24 - Hgb has been stable and today Hgb was 9.6 - Monitor am labs HARJINDER - Cr improving; am Cr of 1.76 from 2.12 - Suspect pre-renal versus ATN from prolonged hypoperfusion - Monitor am labs Acute dehydration - Related to poor p.o. intake - Continue to encourage PO intake B-cell lymphoma - Follow outpatient with Dr. Bliss Admission and Anticipated Discharge Date Admission Date: September 08, 2024 Subjective Feeling well save for persistent weakness unchanged from previous exams, maybe mildly better. No overnight events. Nursing contacted me this morning due to patient being hypoglycemic with bsg of 67, patient asymptomatic and given OJ. No other reported events. No new sxs. Review of Systems Review of Systems: as per HPI. Physical Exam Constitutional: Awake and alert, in no acute distress Eyes: PERRL, EOMI ENMT: Oral mucosa moist. Respiratory: Lungs clear to auscultation b/l, no wheezing, rales, rhonchi Cardiovascular: RRR, no murmurs, rubs, gallops. Radial + pedal pulses intact. L arm hematoma. No edema Results & Data Results & Data Vital Signs (Past 12 Hours) Vital Signs Temp Pulse Pulse Resp BP Pulse Ox O2 Del Method 09/13/24 07:18 71 09/13/24 07:18 36.7 C 77 16 132/69 96 Room Air 09/13/24 03:29 36.8 C 70 18 110/60 97 Room Air 09/12/24 23:18 36.6 C 64 18 117/73 97 Room Air 09/12/24 21:53 Room Air 09/12/24 21:45 65 Resident Activity Tracking Resident Involvement: Resident Care Provided Care Provided: Adult Hospital Medicine (6) Diastolic congestive heart failure, NYHA class 2 Congestive heart failure chronicity: acute Qualified Code(s): I50.31 - Acute diastolic (congestive) heart failure
[2024-09-13] MEDS: SENNA 8.6 MG TAB PO PRN (08:39)
[2024-09-13 08:42] LABS: BUN Creatinine Ratio 27.3 (10-20); Creatinine Clr Calc Pharmacy 30.1 ml/min; Potassium 3.8 mmol/L (3.5-5.1)
[2024-09-13] MEDS: POLYETHYLENE (MIRALAX) 17 GM PACK PO PRN (08:45)
[2024-09-13] MEDS: HYDROCORTISONE SOD 25 MG in SYRINGE 0 ML IV SCH (09:59)
--- NOTE | 2024-09-13 10:06 | Discharge Summary ---
Date of Service September 13, 2024 Admission HPI Per Admitting Provider Patient is a very pleasant 73-year-old female known to me from an admission recently who comes in with weakness. She notes that she has been getting weaker. She had a blood transfusion on Sundaynormally she feels better after transfusions but really did not feel much better after that. She also notes poor p.o. intake, poor appetite, not able to eat and drink very well. Was continuing to take her medications. [facility] Here she was also found to have an HARJINDER and hyperkalemia. She denies any visible blood lossno blood in her stool, etc. She also denies any infectious symptoms such as fevers chills or sweats. She notes that while she does still have some fecal incontinence it is far better than it was. Admission Exam Per Admitting Provider In general she is awake and alert pleasant no distress. HEENT normocephalic atraumatic mucous membranes moist. Cardio is regular without rubs murmurs or gallops. Lungs are clear to auscultation bilaterally no rales rhonchi or wheezes no accessory muscle use good effort. Abdomen is soft nondistended nontender no masses organomegaly. Extremities without sinus clubbing or edema no calf tenderness. Neuro without focal deficits. Labs and diagnostics noted. Principal Diagnosis Hypovolemia, anemia Discharge Exam Constitutional: A&Ox3, NAD HEENT: NC/AT, anicteric sclerae, EOM intact Cardiovascular: RRR, holosystolic murmur best heard in aortic and mitral valve areas, A>M, no rubs/gallops Respiratory: clear to auscultation b/l, fair equal air entry b/l, no wheeze/rales/rhonchi GI: abdomen soft, non tender, non distended Discharge Data Allergies Allergy/AdvReac Type Severity Reaction Status Date / Time cat dander Allergy Intermediate ITCHY Verified 09/05/24 15:45 EYES, SNEEZING, CONGESTION lisinopril Allergy Mild Cough Verified 09/05/24 15:45 Sulfa (Sulfonamide AdvReac Intermediate NAUSEA Verified 09/05/24 15:45 Antibiotics) codeine AdvReac Mild Vomiting Verified 09/05/24 15:45 Consultations 09/08/24 15:50 ED Decision to Admit Stat 09/08/24 22:28 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 Ordered Studies 09/08/24 14:42 CT abd pelvis wo con Stat Hospital Course (1) Septic shock: (2) Pancytopenia: (3) Acute UTI: (4) B-cell lymphoblastic leukemia: (5) Cardiac pacemaker: (6) Diastolic congestive heart failure, NYHA class 2: (7) Diabetes mellitus, type II, insulin dependent: (8) Hyperlipidemia: Plan Deconditioning - Discharging to [facility] today Hypotension -- Resolved - BP now stable without vasopressors or other meds - Continue PO nutrition and hydration - Continue to hold antihypertensives until BP improve further to limit risk of hypotension Anemia - Appears to be predominantly due to her lymphoma and/or treatment. Also has history of MAVERICK. - S/p transfusion of 2 units of irradiated PRBC on 09/08/24 - Hgb has been stable and today Hgb was 9.6 - Will give dose of Venofer 200 mg IV prior to discharge - Will discharge with Ferrous gluconate, which she was advised to take every other day, and given the option of taking with vitamin C to help with absorption. HARJINDER - Improving; Cr from this morning of 1.76 which decreased from 2.12 in previous lab - Suspect pre-renal versus ATN from prolonged hypoperfusion - Will likely take some time to return to baseline - Continue with oral hydration and nutrition Acute dehydration - Related to poor p.o. intake - Continue to encourage PO intake B-cell lymphoma - Follow outpatient with Dr. Bliss Total Time Total Time Spent Total Time Spent (In Minutes): <30 Discharge Plan Discharge Items Patient Disposition: Transfer Inpatient Rehab Fac Reason For Visit: HYPOTENSION, HYPERKALEMIA Discharge Diagnosis: Dehydration, Anemia Condition on Discharge: Serious Activity: Per Instructions section Non-emergency contact: Primary Care Provider and Oncologist Call non-emergency contact if: your symptoms worsen and your temperature is above 101 Follow-up/Referrals: Liana Perdomo, DO [Primary Care Provider] - Diet: Carb Consistent or DM2 Addtl Attending Provider Instructions: You are admitted to the hospital due to weakness and other systemic symptoms that were found to be related to dehydration. You were also found to be anemic (have low blood count) and your blood pressure was low. Due to your dehydration as well as your anemia, your blood pressure decreased to the point that you had to be on medication to help keep it in a good range. Once your blood pressure improved after rehydration and correction of your anemia (with blood transfusions), the medications used to control your blood pressure were stopped. Fortunately, after stopping these medications your blood pressure still held in a good range. Now that we have stopped all the medications that were being used to increase your blood pressure, we will be discharging you today to [facility] for physical therapy. To manage your anemia, we gave you a blood transfusion, and later on administered an iron infusion through your intravenous line. After this, your bl ood count has been increasing every day. Due to the improvement in your blood count, we will not be transfusing blood today, and instead will be giving an additional iron infusion and discharging you with iron tablets which we recommend to take every other day (for example, Sunday, Wednesdays, and Fridays). You could take these iron tablets with vitamin C to further increase your body's absorption of this supplement. A discharge summary will be sent to your primary care physician to ensure continuity of care. Please bring this discharge summary with you to your next office appointment so that your provider can review it at that time. Follow-up appointments: Keep all your follow-up appointments as already scheduled. If you cannot make an appointment, notify your provider. Medications: Your medication list has been reviewed and reconciled upon discharge to ensure accuracy and continuity of care. An updated list of all your medications is included with your hospital discharge paperwork. Please review this list closely, and make note of any changes. Take your medications as instructed; do not skip a dose of your medicines. Make sure all of your doctors know every medicine you are taking (including fkrk-yir-davakwm medicines, vitamins, and supplements). Call your primary care provider before taking any new medicines (including over- the-counter medicines, vitamins, and supplements), because some of these may interact with your current medications, or may make your symptoms worse. Tell your primary care provider if you cannot afford your medications. CONTACT YOUR PRIMARY CARE PROVIDER if you experience any of the following: Worsening of symptoms Fever, chills, or fatigue Difficulty following your treatment plan, or difficulty taking medications CALL 911 OR GO TO THE EMERGENCY DEPARTMENT if you experience any of the following: Sudden, severe abdominal pain or nausea/vomiting Severe chest pain, or chest pain that radiates (moves) to your jaw or arm Sudden, severe shortness of breath or difficulty breathing Thank you for allowing us to participate in your care. Pending Studies at Discharge: No Stand-Alone Forms: [facility] Skilled Items Patient informed of condition?: Yes DNR: No Discharge Level of Care: Acute rehab Communicable Disease: No Discharge Prognosis: Stable Lines: None Urinary Catheter: No Medications and DC Order Prescriptions: New ferrous gluconate 324 mg (38 mg iron) tablet 324 mg PO Q48H Qty: 30 0RF Rx Instructions: Take on Sunday, Sunday, and Sunday Continued (DME) pen needle, diabetic [BD Ultra-Fine Mini Pen Needle] 31 gauge x 3/16" needle See Dose Instructions .ROUTE .MEDSUPPLY Qty: 100 4RF Dose Instruction: As directed Rx Instructions: Use as directed polyethylene glycol 3350 [Miralax] 17 gram/dose powder 17 g PO DAILY PRN (Reason: constipation) Qty: 119 0RF lorazepam 0.5 mg tablet 0.5 mg PO HS PRN (Reason: anxiety) Qty: 20 0RF (DME) miscellaneous medical supply Misc See Rx Instructions .ROUTE .MEDSUPPLY Qty: 1 0RF Rx Instructions: Stair Lift C85.9 acyclovir 400 mg tablet 400 mg PO BID Qty: 60 0RF metformin 1,000 mg tablet 1,000 mg PO BID Qty: 180 0RF Ozempic 1 mg/dose (4 mg/3 mL) pen injector 1 mg subcut WK Qty: 3 1RF Rx Instructions: Q Fri carvedilol 12.5 mg tablet 12.5 mg PO BID Qty: 180 3RF Rx Instructions: must administer with a meal/food pantoprazole 40 mg tablet,delayed release (DR/EC) See Rx Instructions .ROUTE .COMPLEX Qty: 30 0RF Dose Instruction: TAKE 1 TABLET BY MOUTH ONCE DAILY, for 3 months Rx Instructions: TAKE 1 TABLET BY MOUTH ONCE DAILY, for 3 months rosuvastatin 20 mg tablet 20 mg PO HS Qty: 90 3RF (DME) Dexcom G7 Sensor Device See Rx Instructions .Route Qty: 9 1RF Rx Instructions: Use for continuous glucose monitoring. Change every 10 days. (DME) Dexcom G7 Nuclear Medicine Technologist Misc See Rx Instructions .Route Qty: 3 1RF Rx Instructions: For continuous glucose monitoring, Change every 3 months tramadol 50 mg tablet 50 mg PO Q6H PRN (Reason: pain) Qty: 20 0RF albuterol sulfate 90 mcg/actuation HFA aerosol inhaler 2 puff inhalation Q6H PRN (Reason: shortness of breath or wheezing) Qty: 8.5 0RF Patient Comments: Pt reports has not used. bisacodyl 5 mg tablet,delayed release (DR/EC) 5 mg PO DAILY PRN (Reason: Constipation) prochlorperazine maleate [Compazine] 10 mg tablet 10 mg PO Q6H PRN (Reason: Nausea) furosemide 40 mg tablet 40 mg PO DAILY spironolactone 25 mg tablet 25 mg PO DAILY Qty: 30 2RF levofloxacin 750 mg tablet 750 mg PO DAILY Hold Instructions: Resume on 08/30/24. resume tomorrow 08/30/24, only 1 day of overlap with fluconazole sulfamethoxazole-trimethoprim [Bactrim] 1 tab PO .3XWEEKLY losartan 25 mg tablet 25 mg PO QAM Qty: 90 1RF aspirin [Ecotrin Low Strength] 81 mg Tablet,Delayed Release (Dr/Ec) 81 mg PO HS docusate sodium [Colace] 100 mg Capsule 100 mg PO DAILY PRN (Reason: Constipation) loratadine [Claritin] 10 mg Tablet 10 mg PO DAILY PRN (Reason: chemo) loperamide 2 mg Capsule 2 mg PO Q6H PRN (Reason: Diarrhea) sennosides 8.6 mg tablet 8.6 mg PO DAILY PRN (Reason: Diarrhea) insulin aspart U-100 [Novolog FlexPen U-100 Insulin] 100 unit/mL (3 mL) insulin pen 0 unit subcut TID PRN (Reason: if premeal blood sugars greater than 250) Rx Instructions: Per sliding scale Jardiance 10 mg tablet 10 mg PO QAM Rx Instructions: TAKE ONE TABLET BY MOUTH EVERY MORNING. potassium chloride 20 mEq Tablet,Er Particles/Crystals 20 meq PO BID Qty: 60 0RF phenazopyridine [Pyridium] 200 mg Tablet 200 mg PO TID PRN (Reason: pain) 7 Days Qty: 21 1RF Gemtesa 75 mg Tablet 75 mg PO DAILY 30 Days Qty: 30 0RF ondansetron 8 mg tablet,disintegrating 8 mg PO Q8H Qty: 0 0RF Discharge Orders: Discharge Order (Routine); Ordered 09/13/24 Ordered By: Kirstie Oneill Admission Data Admit Date/Time: 09/08/24 15:12 Attending Provider: Rojelio Egan Admit Provider: Rojelio Egan Primary Care Provider: Liana Perdomo Other Providers: Good Sagastume; Rojelio Egan; Kota Edwards; [facility] Other Interventions: Discharge Summary Assessment (RN) Last Done: 09/13/24 11:22 Supervising Physician Co-Signing Physician Notes I personally examined the patient and verified all bustillo points of history and exam, discussed case, and agree with decision making with Dr Oneill has rehab bed. nervous about going but agreeable/we discussed that at this point doing more therapy will be in her best interest Vitals noted, in general she is awake and alert pleasant no distress, fatigued appearing. HEENT normocephalic atraumatic mucous membranes moist. Breathing unlabored no accessory muscle use good effort. Skin without rashes pallor or icterus. Neuro without focal deficits. Labs and diagnostics noted. Hypotensionlikely multifactorial but predominantly hypovolemia from dehydration/HARJINDER and anemianow improved. weaning steroids, midodrine, florinef Obviously have been holding antihypertensives/diuretics/etc. at this time. -->stable for rehab, would continue to follow closely and restart prior home regimen as her condition allows anemiahemoglobin better. 9.6 today. Most likely a combination of slow GI losses from mass, and hypoproliferative from lymphoma/iron deficiency. given her response to IV iron, optimistic that her hypoproliferation may have been more due to Fe def than lymphoma. is to see lymphoma specialist at [facility] (needs to be rescheduled - missed while inpatient) dehydration/HARJINDER/hyperkalemia/moderate protein calorie malnutrition I suspect an element of ATN that is now improving. she now looks euvolemic and is eating and drinking better. Extensive discussions on nutrition and hydration with patient and family on 09/10,encouraged ongoing intake. 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
[2024-09-13] MEDS: IRON SUCROSE 200 MG in SODIUM CHLORIDE 0.9% 100 ML IV ONE (10:56)
[2024-09-13] MEDS ORDERED: HEPARIN 100 UNIT/ML 5ML FLUSH FLUSH PRN (11:47)
--- NOTE | 2024-09-13 14:41 | Billing Data ---
Date of Service September 13, 2024 Coding Level of Care Code 24006 IN/OBS DISCH 30 MIN/LESS
[2024-09-13 15:45] VITALS: BP 124/74; PULSE 73; RESP 17; TEMP 97.5; O2SAT 93
[2024-09-13] MEDS ORDERED: LANTUS PER UNIT CHARGE SQ SCH (21:00)
== END 2024-09-13 18:41 | DRG 871 ==
LOC: ED 12:58 → 2S 15:12 → 1E 22:16 → 2E 09-10 18:48 → 2N 09-11 23:03

== ENCOUNTER 2024-09-26 17:02 | Inpatient (IN) ==
[2024-09-26] MEDS: OPTIRAY 320 125ml IV ONE (17:24)
[2024-09-26] MEDS: MAGNESIUM SULFATE / D5W 1 GM/100 ML BAG IV STA ×2 (17:30→18:41)
--- NOTE | 2024-09-26 17:31 | CT Scan Report ---
CT head without contrast History: Stroke alert Comparison: None Technique: Using multidetector thin collimation helical acquisition technique, axial, coronal and sagittal CT images from the skull base to the vertex were obtained without intravenous contrast. Dose reduction techniques were achieved by using automatic exposure control and/or adjustment of mA and/or kV according to patient size and/or use of iterative reconstruction technique. Findings: There is a thin subdural collection over the right cerebral convexity, measuring approximately 4 mm in thickness. This appears homogeneously low in attenuation. There is marked generalized cerebral atrophy. Moderate to marked patchy low-density changes in the white matter suggestive of chronic small vessel ischemic disease. No mass-effect, or midline shift. The ventricles are proportionate to the cerebral sulci. The hurtado to white matter differentiation of the cerebral hemispheres is preserved. The basal cisterns are patent. The visualized paranasal sinuses are clear. Mastoid air cells are clear. Impression: A thin subdural collection over the right cerebral convexity is seen. This is homogeneously hypoattenuating, and may represent a hygroma or chronic subdural hematoma. A hyperacute subdural hematoma is difficult to entirely exclude, although which seems less likely. This could be further evaluated with MRI if clinically indicated. Comparison with prior images would also be helpful. Otherwise no convincing evidence for acute infarct. Critical findings discussed with Dr. Melvin by Dr. Ghotra at 5:25 PM, 09/26/2024 Electronically signed by Gregory Ghotra 09-26-2024 5:30 PM
[2024-09-26 17:37] LABS: Hematocrit (blood only) 25.4 % (37.0-47.0); Hemoglobin 8.5 g/dl (12.0-16.0); Mean Corpuscular Hemoglobin 30.7 pg (25.0-34.0); Mean Corpuscular Hgb Conc 33.5 g/dL (32.0-36.0); Mean Corpuscular Volume 91.7 fL (80.0-100.0); Mean Platelet Volume 10.3 fL (9.4-12.4); Nucleated RBC # (auto) 0.07 K/uL (0.00-0.12); Nucleated RBC % (auto) 1.9 %; Platelet Count 39 K/uL (130-400); RDW Coefficient of Variation 19.7 % (11.5-14.5); Red Blood Count 2.77 M/uL (4.20-5.40); White Blood Count 3.65 K/ul (4.8-10.8)
--- NOTE | 2024-09-26 17:38 | Emergency Department Note ---
Impression & Plan Generalized weakness, Anemia, Hyponatremia, Hypomagnesemia, Thrombocytopenia ED Provider Note ED Provider Note NAME: AV LAINEZ AGE:73 SEX: Female : 1950 ARRIVES VIA: EMS INFORMANT: Patient, EMS ED PROVIDER(s): Audelia Melvin DO CHIEF COMPLAINT: Strokelike symptoms HPI: [id number] female who presents emergency room via EMS due to concern for strokelike symptoms. EMS reports upon their arrival patient was noted to have right-sided weakness, left facial droop, and some difficulty speaking. Staff at the facility where she has been residing was unable to tell them when symptoms started. Charge nurse also states she received a phone call from the facility who could not tell her when the last known well was. EMS reports staff told him they first noticed symptoms at 2 PM. EMS reported patient was initially hypotensive en route and did require push dose pressors, blood pressure was improved on arrival here. Prehospital blood sugar was reassuring. She does take low-dose aspirin daily. PAST MEDICAL HISTORY:See Below PAST SURGICAL HISTORY:See Below FAMILY HISTORY:See Below SOCIAL HISTORY:See Below HOME MEDICATIONS:See Below ALLERGIES:See Below VITALS:See Below PHYSICAL EXAMINATION: GENERAL: alert, well appearing, well nourished, no distress, non-toxic EYE EXAM: normal conjunctiva, PERRL and EOM's grossly intact OROPHARYNX: no exudate, no erythema, lips, buccal mucosa, and tongue normal and mucous membranes are moist NECK: supple, no nuchal rigidity, no adenopathy, non-tender LUNGS: Clear to auscultation. Normal chest wall mechanics, no w/r/r HEART: no murmurs, S1 normal and S2 normal ABDOMEN: abdomen soft, non-tender, normo-active bowel sounds, no masses, no rebound or guarding. BACK: Back is symmetrical on inspection and there is no deformity, no midline tenderness, no CVA tenderness. SKIN: no rashes, petechiae, orbruising UPPER EXTREMITIES: upper extremities are grossly normal. FROM, nml pulses b/l. LOWER EXTREMITIES: No pitting edema. FROM, nml pulses b/l. NEURO EXAM: Normal sensorium, cranial nerves II-XII grossly intact, normal speech, no facial droop,nogross weakness of arms, no gross weakness of legs. Gross sensation intact. No ataxia. Vital Signs: reviewed and remarkable Differential Diagnosis: dehydration, stroke, anemia, hypoglycemia, hyponatremia, hypernatremia, urinary tract infection, pneumonia, bronchitis, sepsis, gastroenteritis, additional abdominal pathology, metabolic abnormalities, as well as others were considered MEDICAL DECISION MAKING: This is a 73-year-old female presents emergency department due to staff concern the facility where she resides for asymmetric weakness and possible stroke. Patient made a stroke alert prehospital. On arrival here patient with symmetric testing bilaterally and no obvious evidence of stroke. Labs drawn and sent, IV established, EKG and chest ray performed at bedside interpreted by me and patient monitored on telemetry. She did go immediately for CT/CTA prior to being placed in a room for the rest of her evaluation. CT by radiology read showing likely chronic subdural versus hygroma. I did discuss this with them via phone call. Only recent fall was 3 weeks ago per further discussion with patient and friend at bedside. Patient's friend reports a slow decline over the course of this past week and was concerned for dehydration or electrolyte abnormality as she has required magnesium supplementation recently. Patient was noted to have hyponatremia and hypomagnesemia on labs. She was started on gentle IV fluid hydration if she did appear clinically dehydrated and started on IV magnesium supplementation. No other evidence of acute stroke. Patient noted to have anemia although this appears stable compared to prior. She was also noted to have mild troponin elevation, no acute EKG changes and she denies chest pain or shortness of breath. Discussed with the hospitalist team for additional evaluation and management here. Consultation(s): 1745: Discussed with Dr. Marie, [facility] [place] stroke. 1901: Discussed with Dr. Egan, [place] hospitalist team, for additional evaluation and mgmt. ER Treatment Provided: See below 1741: Discussed with friend who presents to the bedside. She states patient had chemo over the summer however she was hospitalized due to complications from it. She then had radiation through the fall. She has been hospitalized in the interim and was [facility] end of last week. She states the goal is to continue PT/OT and maintain hydration there in the hopes of her being able to return home. She and other family members who have checked on her throughout the week and felt that she has been declining over the course of this week. Friend is concerned she had a fall several week ago, she estimates at least 3. Patient states she did not hit her head during that fall. Diagnostics Interpreted By Me: -ECG: Paced 91, prolonged intervals, nonspecific ST/T wave changes, PVCs noted -Cardiac Monitoring: An order was placed for continuous cardiac monitoring. The monitor shows a rate of 96 with paced rhythm. -Laboratory studies: As stated above and show below. -Imaging studies: X-ray Chest: A single view study of the chest was reviewed and was negative for cardiomegaly, focal infiltrate, effusion, pulmonary edema, or wide mediastinum. Triage Nursing Note Reviewed Prior/Outside Records Reviewed Critical Care: Critical care of 52 min performed to assess and manage high likelihood of life-threatening weakness and confusion, involving labs and imaging performed with assessment to evaluate weakness and confusion diagnosis with frequent reassessment. This time includes bedside time, treatment discussions with patient/family/consultants, documentation time and excludes procedure time. Past Med/Surg History Problem List (Updated 09/26/24 @ 19:52 by Rojelio Egan DO) Discharge planning issues DVT prophylaxis Abnormal head CT Thrombocytopenia (Acute) Hypomagnesemia (Acute) Hyponatremia (Acute) Anemia (Acute) Generalized weakness (Acute) Cardiomyopathy Hypokalemia Urinary tract infection (Acute) Pancytopenia (Acute) Arthritis of left hip Atrial flutter Anticoagulant long-term use Unspecified atrial fibrillation MAVERICK (iron deficiency anemia) Vitamin D deficiency Chronic kidney disease, stage 3a Anemia has had eliquis on hold since 12/05/23 - pt has been receiving iron infusion and 3 blood transfusions since November 2023. Pleural effusion (Acute) Third degree heart block (Acute) reason for pacemaker Mediastinal adenopathy Sarcoid Chronic cystitis (Acute) Essential hypertension (Acute) Microalbuminuria (Acute) Mitral regurgitation (Acute) Recurrent UTI (Acute) Tricuspid regurgitation (Acute) Trigger finger, acquired (Acute) Venous insufficiency (Acute) Morbid obesity (Chronic) MAX (obstructive sleep apnea) (Chronic) cpap nightly LVH (left ventricular hypertrophy) (Chronic) Aortic stenosis (Chronic) mild calcific aortic stenosis noted on 2005 Echo at [facility] in 2019. 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) Medical History Overflow diarrhea Dysuria Low hemoglobin Diarrhea Acute UTI COVID-19 Hypokalemia HFrEF (heart failure with reduced ejection fraction) Generalized weakness Type 2 diabetes mellitus Non-Hodgkin's lymphoma B-cell lymphoma TREATMENT FOR 1 YEAR *R-CHOP (LAST TX 2018) Gastritis due to bacteria h.pylori positive gastritis; following with GI Tricuspid regurgitation mild per 10/02/23 ECHO History of GI bleed Eliquis on hold as result; GI currently working up; had EGD 12/2023 Coronary artery disease severe RCA stenosis per cath 07/05/22; med mgmt recommended Anemia has had eliquis on hold since 12/05/23 - pt has been receiving iron infusion and 3 blood transfusions since November 2023 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 Aortic stenosis mod-severe per 10/02/23 ECHO LVH (left ventricular hypertrophy) MAX (obstructive sleep apnea) cpap nightly Hyperlipidemia Venous insufficiency Mitral regurgitation mod-severe per 10/02/23 ECHO HTN (hypertension) Chronic cystitis Hx of sarcoidosis follows with Chronic kidney disease (CKD), stage III (moderate) Vitamin D deficiency Diastolic congestive heart failure, NYHA class 2 follows with heart failure clinic Unspecified atrial fibrillation cardioversion 09/2023 [facility] Atrial flutter cardioversion 09/2023 [facility] History of ventricular tachycardia 7 sec run of NSVT per 01/13/24 pacer report. per Cardio comments: "continue to monitor" History of third degree heart block reason for pacemaker Abnormal findings on esophagogastroduodenoscopy (EGD) 12/2023: h.pylori gastritis, hernia History of cardioversion 09/2023 at [facility] - successful. History of COVID-12 March 2021 - cold symptoms. no current issues Hx of cancer of uterus s/p hyster 2006 History of B-cell lymphoma treatment for 1 year in 2019 *R-CHOP. Recurrence noted in LN on 03/10/24 bronchoscopy Diabetes mellitus, type 2 IDDM Neuropathy Pacemaker Medtronic pacer placed 11/2021 for complete heart block. follows with [facility] cardio, last checked 12/2023 Mediastinal lymphadenopathy Surgical History Port-A-Cath in place (04/02/24) Insertion Access Port with Fluoroscopy(Not Applicable) - Eddie Pineda DO, FACS Status post PICC central line placement Right IJ port placed for chemo 2018 (subsequently removed) S/P trigger finger release right hand History of cardiac catheterization 06/2022 [facility] - sob - no stents History of removal of Port-a-Cath Remove Access Port(Right) - Eddie Pineda DO, FACS [id number] H/O breast biopsy benign H/O total hysterectomy MAYITO and BSO 2006 History of tooth extraction History of cataract surgery bilateral History of bronchoscopy Status post placement of cardiac pacemaker 11/28/21 H/O excision of mass left neck (lymphoma) History of total knee arthroplasty bilateral History of tonsillectomy and adenoidectomy H/O colonoscopy Family History Grandfather (Maternal) Family history of diabetes mellitus Family/Other Family history of diabetes mellitus Father Myocardial infarction Family history of esophageal cancer Other No family history of adverse response to anesthesia Denies family history of Ovarian cancer Prostate cancer Breast cancer Colorectal cancer Social History Smoking Status: Never smoker Second Hand Exposure: Yes (hx); Do You Dip or Chew Tobacco: No; Hx Alcohol Use: No Hx Substance Use: No Preferred Language: Greenlandic Communication Ability: Unable Visual Impairment: No Limitations Hearing Ability: Normal Lease Administration Supervisor Required: No Beliefs That Will Affect Care: None marital status: Current Living Situation: Rehab Current Living Situation Comment: Came from [facility] current occupational status: employed current occupation: [employer] How many Children do You have: 1 Feels Safe at Home: Yes Childhood Exposure to Second-Hand Smoke: Yes Diet: regular caffeine: Yes during the past year weight has: remained stable Dental Care, Regularly: Yes Physical Activity Frequency: Does not Exercise Seatbelt Use: always Sunscreen Use: Yes Assistive Devices: Cane and Walker Allergies Allergies Allergy/AdvReac Type Severity Reaction Status Date / Time cat dander Allergy Intermediate ITCHY Verified 09/05/24 15:45 EYES, SNEEZING, CONGESTION lisinopril Allergy Mild Cough Verified 09/05/24 15:45 Sulfa (Sulfonamide AdvReac Intermediate NAUSEA Verified 09/05/24 15:45 Antibiotics) codeine AdvReac Mild Vomiting Verified 09/05/24 15:45 Home Meds Home Medications Medication Instructions Recorded Confirmed aspirin 81 mg tablet,delayed 81 mg PO HS 10/18/18 09/26/24 release (Ecotrin Low Strength) prochlorperazine maleate 10 mg 10 mg PO Q6H PRN Nausea OR VOMITING 05/07/24 09/26/24 tablet (Compazine) empagliflozin 10 mg tablet 10 mg PO QAM 05/12/24 09/26/24 (Jardiance) loratadine 10 mg tablet (Claritin) 10 mg PO DAILY PRN chemo 07/16/24 09/26/24 furosemide 40 mg tablet 40 mg PO DAILY 08/18/24 09/26/24 albuterol sulfate 90 mcg/actuation 2 puff inhalation Q6H PRN wheezing 09/26/24 09/26/24 aerosol inhaler fludrocortisone 0.1 mg tablet 0.1 mg PO DAILY 09/26/24 09/26/24 insulin glargine U-300 conc 300 8 unit subcut BID 09/26/24 09/26/24 unit/mL (1.5 mL) subcutaneous pen (Lorenzo SoloStar U-300 Insulin) loperamide 2 mg capsule 2 mg PO Q6H PRN LOOSE STOOLS 09/26/24 09/26/24 midodrine 5 mg tablet 5 mg PO BID 09/26/24 09/26/24 pantoprazole 40 mg tablet,delayed 40 mg PO DAILYBB 09/26/24 09/26/24 release Previous Rx's Medication Instructions Recorded pen needle, diabetic 31 gauge x #100 ea 05/15/22/" (BD Ultra-Fine Mini Pen Needle) blood-glucose meter,continuous #3 ea 05/01/23 (Dexcom G7 Power Barker Operator) blood-glucose sensor (Dexcom G7 #9 ea 05/01/23 Sensor device) lorazepam 0.5 mg tablet 0.5 mg PO HS PRN anxiety #20 tabs 05/08/24 miscellaneous medical supply #1 ea 05/13/24 potassium chloride 20 mEq 20 meq PO BID #60 tabs 05/17/24 tablet,extended release(part/cryst) metformin 1,000 mg tablet 1,000 mg PO BID #180 tabs 06/16/24 semaglutide 1 mg/dose (4 mg/3 mL) 1 mg (0.75 mL) subcut WK #3 mL 07/03/24 subcutaneous pen injector (Ozempic) spironolactone 25 mg tablet 25 mg PO DAILY #30 tabs 08/18/24 vibegron 75 mg tablet (Gemtesa) 75 mg PO DAILY 30 days #30 tabs 08/29/24 rosuvastatin 20 mg tablet 20 mg PO HS #90 tabs 09/08/24 ferrous gluconate 324 mg (38 mg 324 mg PO Q48H #30 tabs 09/13/24 iron) tablet acyclovir 400 mg tablet 400 mg PO BID #0 tabs 09/27/24 levofloxacin 750 mg tablet 750 mg PO Q48H #0 tabs 09/27/24 sulfamethoxazole 400 1 tab PO MoWeFr@0800 #0 tabs 09/27/24 mg-trimethoprim 80 mg tablet (Bactrim) Results & Data (ED) Vital Signs Vital Signs - 24 hr 09/26/24 19:12 09/26/24 19:45 Pulse Rate 107 H 111 H Pulse Rate from SpO2 Sensor 110 H 111 H Respiratory Rate 29 H 24 Blood Pressure 142/97 H Blood Pressure Mean 112 Pulse Oximetry 94 95 Oxygen Delivery Method Room Air Room Air Laboratory Data 09/27/24 02:08 09/27/24 07:15 Lab Results 09/26/24 09/26/24 Range/Units 17:30 17:47 WBC 3.65 L (4.8-10.8) K/ul RBC 2.77 L (4.20-5.40) M/uL Hgb 8.5 L (12.0-16.0) g/dl POC Hgb 8.2 L (12.0-16.0) g/dl Hct 25.4 L (37.0-47.0) % POC Hct 24 L (37-47) % MCV 91.7 (80.0-100.0) fL MCH 30.7 (25.0-34.0) pg MCHC 33.5 (32.0-36.0) g/dL RDW Std Deviation 65.0 H (36.4-46.3) fL RDW Coeff of Shruti 19.7 H (11.5-14.5) % Plt Count 39 L (130-400) K/uL MPV 10.3 (9.4-12.4) fL Absolute Nucleated RBC 0.07 (0.00-0.12) K/uL Nucleated RBC % (auto) 1.9 % PT 13.7 H (9.0-12.0) Seconds INR 1.3 H (0.9-1.1) APTT 28 (21-31) Seconds PTT Ratio 1.0 POC Sodium 127 L (135-144) mmol/L Sodium 126 L (136-145) mmol/L POC Potassium 4.2 (3.3-5.0) mmol/L Potassium 4.1 (3.5-5.1) mmol/L POC Chloride 102 (101-112) mmol/L Chloride 98 (98-107) mmol/L Carbon Dioxide 16 L (21-32) mmol/L POC Total CO2 14 L (24-31) mmol/L Anion Gap 12 H (3-11) POC Anion Gap 16.0 (16-25) mmol/L POC BUN 29 H (7-18) mg/dl BUN 38 H (6-23) mg/dl Creatinine 1.66 H (0.6-1.2) mg/dl POC Creatinine 1.8 H (0.6-1.3) mg/dl Est Cr Clr Drug Dosing 31.9 ml/min eGFR 32.79 BUN/Creatinine Ratio 22.9 H (10-20) Glucose 192 H (70-99(Fasting)) mg/dl POC Glucose (other) 177 H (70-99) mg/dl Calcium 9.5 (8.6-10.3) mg/dl POC Ioniz Calcium Mayra 1.38 H (1.12-1.32) mmol/l Magnesium 1.2 L (1.7-2.4) mg/dl Total Bilirubin 0.5 (0.2-1.0) mg/dl AST 13 (13-39) U/L ALT 12 (7-52) U/L Alkaline Phosphatase 133 H (34-104) U/L Troponin I High Sens 47.8 H (0-14) pg/ml Total Protein 4.3 L (6.0-8.3) gm/dl Albumin 2.2 L (3.4-5.0) gm/dl Globulin 2.1 L (2.5-4.0) gm/dl Albumin/Globulin Ratio 1.0 (0.9-2) Administered Medications Discontinued Medications Acyclovir (Acyclovir 400 Mg Tab) 400 mg PO BID MICHELLE Stop: 10/26/24 22:00 Last Admin: 09/27/24 02:06 Dose: Not Given Documented By: ELLEN Magnesium Sulfate/Dextrose (Magnesium Sulfate / D5w) 1 gm in 100 mls @ 100 mls/hr IV NOW STA Stop: 09/26/24 18:27 Last Infusion: 09/26/24 18:42 Dose: Infused Documented By: Admin: 09/26/24 17:30 Dose: 100 mls/hr Documented By: SLOAN Sodium Chloride (Nss) 1,000 mls @ 80 mls/hr IV .[id number] MICHELLE Stop: 09/27/24 18:14 Last Admin: 09/26/24 18:08 Dose: 80 mls/hr Documented By: SLOAN Magnesium Sulfate/Dextrose (Magnesium Sulfate / D5w) 1 gm in 100 mls @ 100 mls/hr IV NOW STA Stop: 09/26/24 19:09 Last Infusion: 09/26/24 19:56 Dose: Infused Documented By: Admin: 09/26/24 18:41 Dose: 100 mls/hr Documented By: SLOAN Insulin Aspart (Insulin Aspart Per Unit Charge) 0 units SC ACHS MICHELLE Stop: 10/26/24 22:00 Last Admin: 09/27/24 01:12 Dose: 1 units Documented By: ELLEN Co-signed By: DONALD Ioversol (Optiray 320 125ml) 119 ml IV ONCE ONE Stop: 09/26/24 17:24 Last Admin: 09/26/24 17:24 Dose: 119 ml Documented By: BAYLEE Magnesium Sulfate/Dextrose (Magnesium Sulfate 1gm / D5w Bag) Confirm Administered Dose 1 gm IV .STK-MED ONE Stop: 09/26/24 17:29 Last Admin: 09/26/24 17:45 Dose: Not Given Documented By: SLOAN Rosuvastatin Calcium (Rosuvastatin Calcium 20 Mg Tab) 20 mg PO HS [facility] Stop: 10/26/24 22:00 Last Admin: 09/27/24 02:06 Dose: Not Given Documented By: ELLEN Imaging Data Radiologist's Impression: Head CT 09/26/24 17:10 CT head without contrast History: Stroke alert Comparison: None Technique: Using multidetector thin collimation helical acquisition technique, axial, coronal and sagittal CT images from the skull base to the vertex were obtained without intravenous contrast. Dose reduction techniques were achieved by using automatic exposure control and/or adjustment of mA and/or kV according to patient size and/or use of iterative reconstruction technique. Findings: There is a thin subdural collection over the right cerebral convexity, measuring approximately 4 mm in thickness. This appears homogeneously low in attenuation. There is marked generalized cerebral atrophy. Moderate to marked patchy low-density changes in the white matter suggestive of chronic small vessel ischemic disease. No mass-effect, or midline shift. The ventricles are proportionate to the cerebral sulci. The hurtado to white matter differentiation of the cerebral hemispheres is preserved. The basal cisterns are patent. The visualized paranasal sinuses are clear. Mastoid air cells are clear. Impression: A thin subdural collection over the right cerebral convexity is seen. This is homogeneously hypoattenuating, and may represent a hygroma or chronic subdural hematoma. A hyperacute subdural hematoma is difficult to entirely exclude, although which seems less likely. This could be further evaluated with MRI if clinically indicated. Comparison with prior images would also be helpful. Otherwise no convincing evidence for acute infarct. Critical findings discussed with Dr. Melvin by Dr. Ghotra at 5:25 PM, 09/26/2024 Electronically signed by Gregory Ghotra 09-26-2024 5:30 PM Head CTA 09/26/24 17:16 CT angiogram of the neck CT angiogram of the brain with contrast Provided History: Neuro deficit Comparison: None Technique: HEAD and NECK CTA: During rapid bolus intravenous injection of nonionic contrast material, axial images were obtained using thin collimation multidetector helical technique from the base of the neck through the Vertex of vertex of the head. This CT angiogram data was reconstructed at thin intervals with mild overlap. 3D reconstructions were obtained. The axial source images, multiplanar reformations, 3D reconstructions in both maximum intensity projection display and volume rendered models were reviewed. Dose reduction techniques were achieved by using automatic exposure control and/or adjustment of mA and/or kV according to patient size and/or use of iterative reconstruction technique. Findings: Head CTA demonstrates no aneurysm or stenosis of the major intracranial arteries. Neck CTA demonstrates no stenosis of the distal internal carotid arteries. There is moderate calcified plaque at the right carotid bulb and proximal right ICA. At the origin of the right ICA, there is a short segment of approximately 30 to 40% stenosis. No proximal left ICA stenosis. The origins of the great vessels from the aortic arch are patent. The normal distal right internal carotid artery measures 5 mm. The normal distal left internal carotid artery measures 5 mm. No mass is noted within the visualized portions of the cervical soft tissues or lung apices. Impression: 1. Head CTA demonstrates patent distal internal carotid arteries in the neck without large vessel occlusion. There is atherosclerosis of the right carotid bulb and proximal ICA, resulting in a short segment of proximal ICA stenosis of approximately 30 to 40%. 2. Neck CTA demonstrates no stenosis of the major cervical arteries. The study was analyzed using artificial intelligence software for large vessel occlusion detection. Electronically signed by Gregory Ghotra 09-26-2024 5:50 PM Neck CTA 09/26/24 17:16 CT angiogram of the neck CT angiogram of the brain with contrast Provided History: Neuro deficit Comparison: None Technique: HEAD and NECK CTA: During rapid bolus intravenous injection of nonionic contrast material, axial images were obtained using thin collimation multidetector helical technique from the base of the neck through the Vertex of vertex of the head. This CT angiogram data was reconstructed at thin intervals with mild overlap. 3D reconstructions were obtained. The axial source images, multiplanar reformations, 3D reconstructions in both maximum intensity projection display and volume rendered models were reviewed. Dose reduction techniques were achieved by using automatic exposure control and/or adjustment of mA and/or kV according to patient size and/or use of iterative reconstruction technique. Findings: Head CTA demonstrates no aneurysm or stenosis of the major intracranial arteries. Neck CTA demonstrates no stenosis of the distal internal carotid arteries. There is moderate calcified plaque at the right carotid bulb and proximal right ICA. At the origin of the right ICA, there is a short segment of approximately 30 to 40% stenosis. No proximal left ICA stenosis. The origins of the great vessels from the aortic arch are patent. The normal distal right internal carotid artery measures 5 mm. The normal distal left internal carotid artery measures 5 mm. No mass is noted within the visualized portions of the cervical soft tissues or lung apices. Impression: 1. Head CTA demonstrates patent distal internal carotid arteries in the neck without large vessel occlusion. There is atherosclerosis of the right carotid bulb and proximal ICA, resulting in a short segment of proximal ICA stenosis of approximately 30 to 40%. 2. Neck CTA demonstrates no stenosis of the major cervical arteries. The study was analyzed using artificial intelligence software for large vessel occlusion detection. Electronically signed by Gregory Ghotra 09-26-2024 5:50 PM Discharge Plan Visit Data Chief Complaint: Stroke Alert ED Provider: Audelia Melvin Discharge Problem: Generalized weakness, Anemia, Hyponatremia, Hypomagnesemia, Thrombocytopenia Patient Disposition: Admitted As Inpatient Discharge Instructions Interventions: ED Discharge Assessment Last Done: 09/26/24 22:02
[2024-09-26] MEDS: MAGNESIUM SULFATE 1GM / D5W BAG IV ONE (17:45)
--- NOTE | 2024-09-26 17:51 | CT Scan Report ---
CT angiogram of the neck CT angiogram of the brain with contrast Provided History: Neuro deficit Comparison: None Technique: HEAD and NECK CTA: During rapid bolus intravenous injection of nonionic contrast material, axial images were obtained using thin collimation multidetector helical technique from the base of the neck through the Vertex of vertex of the head. This CT angiogram data was reconstructed at thin intervals with mild overlap. 3D reconstructions were obtained. The axial source images, multiplanar reformations, 3D reconstructions in both maximum intensity projection display and volume rendered models were reviewed. Dose reduction techniques were achieved by using automatic exposure control and/or adjustment of mA and/or kV according to patient size and/or use of iterative reconstruction technique. Findings: Head CTA demonstrates no aneurysm or stenosis of the major intracranial arteries. Neck CTA demonstrates no stenosis of the distal internal carotid arteries. There is moderate calcified plaque at the right carotid bulb and proximal right ICA. At the origin of the right ICA, there is a short segment of approximately 30 to 40% stenosis. No proximal left ICA stenosis. The origins of the great vessels from the aortic arch are patent. The normal distal right internal carotid artery measures 5 mm. The normal distal left internal carotid artery measures 5 mm. No mass is noted within the visualized portions of the cervical soft tissues or lung apices. Impression: 1. Head CTA demonstrates patent distal internal carotid arteries in the neck without large vessel occlusion. There is atherosclerosis of the right carotid bulb and proximal ICA, resulting in a short segment of proximal ICA stenosis of approximately 30 to 40%. 2. Neck CTA demonstrates no stenosis of the major cervical arteries. The study was analyzed using artificial intelligence software for large vessel occlusion detection. Electronically signed by Gregory Ghotra 09-26-2024 5:50 PM
[2024-09-26 17:58] LABS: Albumin Level 2.2 gm/dl (3.4-5.0); BUN Creatinine Ratio 22.9 (10-20); Bilirubin,Total 0.5 mg/dl (0.2-1.0); Calcium 9.5 mg/dl (8.6-10.3); Creatinine Clr Calc Pharmacy 31.9 ml/min; Globulin 2.1 gm/dl (2.5-4.0); Magnesium 1.2 mg/dl (1.7-2.4); Potassium 4.1 mmol/L (3.5-5.1); Total Protein 4.3 gm/dl (6.0-8.3)
[2024-09-26 18:00] LABS: iSTAT Creatinine 1.8 mg/dl (0.6-1.3); iSTAT Hemoglobin 8.2 g/dl (12.0-16.0); iSTAT Ionized Calcium 1.38 mmol/l (1.12-1.32); iSTAT Potassium 4.2 mmol/L (3.3-5.0)
[2024-09-26 18:04] LABS: Troponin I High Sensitivity 47.8 pg/ml (0-14)
[2024-09-26] MEDS: SODIUM CHLORIDE 0.9% 1,000 ML IV SCH (18:08)
[2024-09-26 18:18] LABS: INR 1.3 (0.9-1.1); Partial Thromboplastin Time 28 Seconds (21-31); Prothrombin Time 13.7 Seconds (9.0-12.0)
--- NOTE | 2024-09-26 19:46 | History & Physical Report ---
Date of Service September 26, 2024 Assessment & Plan (1) Generalized weakness: Plan: my biggest suspicion is that she got somewhat delirious from tramadol, and then given that p.o. intake has been her major difficulty at this phase of her cancer journey, once she was delirious her p.o. intake fell off, leading to hyponatremic dehydrationperpetuating the delirium. Tramadol has been stopped, will work on hyponatremia as below, discussed with patient and family the d juliocesarums do sometimes take a while to improve even after the offending cause has been alleviated. As it relates to the possible mild right sided focus of her weaknessher neuroexam is somewhat inconsistent and that it seems to show a mild degree of asymmetric right-sided weakness (not an absolute degree) with no discernible sensory deficits, and most of the weakness seems to correct with volitional movement. As below noted, while the CT head findings are likely chronic, they are also likely irrelevant to figuring out this weakness given that it is right sided findings and she has right sided weakness. Certainly given that she has atrial flutter and is not on anticoagulation due to her chronic thrombocytopenia, a stroke would be possible, but I doubt it. At the same time, I discussed with patient/friend that there would not be any real interventions that we could do other than therapy given the unknown duration since "last known well" and her thrombocytopenia. (2) Hyponatremia: Plan: This seems to be the driving factor of her current decline. Hyponatremic dehydrationsodium as low as 126was normal last week. Probably due to poor p.o. intake. Hydrate with saline, every 4 hour basic metabolic panel, adjust fluid rates as necessary. (3) Abnormal head CT: Plan: the ER physician discussed the CT scan personally with the radiologist who believes it is chronic findings more consistent with a hygroma. Obviously the patient is thrombocytopenic and on an antiplatelet so is at risk for something like a subdural; at the same time she does not have a headache, her altered mental status is much more fitting with a delirium, and while as above noted she has a mild degree of focused possible right-sided weakness that seems more volitional than neurologic, the area in question is also on the right side so the symptoms do not fit. Until things are better discerned, we will hold her antiplatelet agents, and follow-up head CT 6 hours later to look for progression. Obviously if there is progression the entire situation may change and she may require transfer to tertiary with neurosurgerybut right now she/family are comfortable with her being here, and I highly doubt that the head CT is of acute significance (4) Anemia: Plan: She has been hypoproliferative, and hematology/oncology has had suspicion of chronic GI blood lossat the same time, she is currently hemodynamically overall stable with clinical picture much more consistent with dehydration than anemia. She has required multiple transfusions over the course of her cancer journey, and may require anotherbut certainly not acutely at this time. (5) Thrombocytopenia: (6) Atrial flutter: (7) Chronic kidney disease, stage 3a: (8) DVT prophylaxis: Plan: Pharmacologic contraindicated due to her thrombocytopenia, as well as suspicion of smoldering/chronic cancer related GI bleed/anemiawill use SCDs (9) Discharge planning issues: Plan: came from [facility] rehab the goal would be to get her back there. PT/OT eval and treat. She is a full code. History of Present Illness Chief Complaint: Weakness and confusion Primary Care Provider: Liana Perdomo DO patient is a very pleasant 73-year-old female well-known to me from recent prior admissions. History is somewhat from her as well as her close friend who is at the bedside, as well as discussions with her sister who had been present with her at rehab (discussions with sister over the phone). After discharge it sounds like for the first week or so she was doing better at rehab making strides, making progress, walking with a walker, and overall showing improvement. She was having some painit sounds like from her woundsand was given tramadolher sister noted shortly thereafter she started to look more delirious. She was only on the tramadol for about 24 hours, but has never quite been herself sincesince initiating the tramadol, and then appearing more delirious, Her p.o. intake has declined. Over the last 3-4 days it sounds like p.o. intake was a struggle and her weakness was getting worse. Friend and sister do not note any focal weakness, although the team at rehab was somewhat concerned about right sided weakness potentially. Patient herself is somewhat disorientedshe is able to recognize her friend, she loosely recognizes me but whenever asked where we met she says my name which is fairly similar to [facility], and then states the name of the facility that was the skilled facility she went to 2 discharges ago. She denies pain. Denies nausea. Allergies Allergy/AdvReac Type Severity Reaction Status Date / Time cat dander Allergy Intermediate ITCHY Verified 09/05/24 15:45 EYES, SNEEZING, CONGESTION lisinopril Allergy Mild Cough Verified 09/05/24 15:45 Sulfa (Sulfonamide AdvReac Intermediate NAUSEA Verified 09/05/24 15:45 Antibiotics) codeine AdvReac Mild Vomiting Verified 09/05/24 15:45 Home Medications Medication Instructions Recorded Confirmed Type aspirin 81 mg tablet,delayed 81 mg PO HS 10/18/18 09/05/24 History release (Ecotrin Low Strength) pen needle, diabetic 31 gauge x #100 ea 05/15/22 08/21/24 Rx 3/16" (BD Ultra-Fine Mini Pen Needle) albuterol sulfate 90 mcg/actuation 2 puff inhalation Q6H PRN 02/26/23 09/05/24 Rx aerosol inhaler shortness of breath or wheezing #8.5 grams blood-glucose meter,continuous #3 ea 05/01/23 08/21/24 Rx (Dexcom G7 Shipping Clerk/Admin) blood-glucose sensor (Dexcom G7 #9 ea 05/01/23 08/21/24 Rx Sensor device) tramadol 50 mg tablet 50 mg PO Q6H PRN pain #20 tabs 03/11/24 09/05/24 Rx docusate sodium 100 mg capsule 100 mg PO DAILY PRN Constipation 04/02/24 09/05/24 History (Colace) polyethylene glycol 3350 17 17 g PO DAILY PRN constipation 04/16/24 09/05/24 Rx gram/dose oral powder (Miralax) #119 grams bisacodyl 5 mg tablet,delayed 5 mg PO DAILY PRN Constipation 05/07/24 09/05/24 History release prochlorperazine maleate 10 mg 10 mg PO Q6H PRN Nausea 05/07/24 09/05/24 History tablet (Compazine) lorazepam 0.5 mg tablet 0.5 mg PO HS PRN anxiety #20 tabs 05/08/24 09/05/24 Rx empagliflozin 10 mg tablet 10 mg PO QAM 05/12/24 09/05/24 History (Jardiance) insulin aspart U-100 100 unit/mL 0 unit subcut TID PRN if premeal 05/12/24 09/05/24 History (3 mL) subcutaneous pen (Novolog blood sugars greater than 250 FlexPen U-100 Insulin aspart) sennosides 8.6 mg tablet 8.6 mg PO DAILY PRN Diarrhea 05/12/24 09/05/24 History miscellaneous medical supply #1 ea 05/13/24 08/21/24 Rx potassium chloride 20 mEq 20 meq PO BID #60 tabs 05/17/24 09/05/24 Rx tablet,extended release(part/cryst) acyclovir 400 mg tablet 400 mg PO BID #60 tabs 06/06/24 09/05/24 Rx metformin 1,000 mg tablet 1,000 mg PO BID #180 tabs 06/16/24 09/05/24 Rx levofloxacin 750 mg tablet 750 mg PO DAILY 07/01/24 09/05/24 History losartan 25 mg tablet 25 mg PO QAM #90 tabs 07/01/24 09/05/24 Rx sulfamethoxazole-trimethoprim 1 tab PO .3XWEEKLY 07/01/24 09/05/24 History [Bactrim] semaglutide 1 mg/dose (4 mg/3 mL) 1 mg (0.75 mL) subcut WK #3 mL 07/03/24 09/05/24 Rx subcutaneous pen injector (Ozempic) carvedilol 12.5 mg tablet 12.5 mg PO BID #180 tabs 07/15/24 09/05/24 Rx loratadine 10 mg tablet (Claritin) 10 mg PO DAILY PRN chemo 07/16/24 09/05/24 History furosemide 40 mg tablet 40 mg PO DAILY 08/18/24 09/05/24 History spironolactone 25 mg tablet 25 mg PO DAILY #30 tabs 08/18/24 09/05/24 Rx ondansetron 8 mg disintegrating 8 mg PO Q8H Encephalopathy #0 tabs 08/29/24 09/05/24 Rx tablet phenazopyridine 200 mg tablet 200 mg PO TID PRN pain 7 days #21 08/29/24 09/05/24 Rx (Pyridium) tabs vibegron 75 mg tablet (Gemtesa) 75 mg PO DAILY 30 days #30 tabs 08/29/24 Rx pantoprazole 40 mg tablet,delayed See Rx Instructions .Route 09/04/24 09/05/24 Rx release .COMPLEX #30 tabs rosuvastatin 20 mg tablet 20 mg PO HS #90 tabs 09/08/24 Rx ferrous gluconate 324 mg (38 mg 324 mg PO Q48H #30 tabs 09/13/24 Rx iron) tablet Past Med/Surg History Problem List (Updated 09/26/24 @ 19:52 by Rojelio Egan DO) Discharge planning issues DVT prophylaxis Abnormal head CT Thrombocytopenia (Acute) Hypomagnesemia (Acute) Hyponatremia (Acute) Anemia (Acute) Generalized weakness (Acute) Cardiomyopathy Hypokalemia Urinary tract infection (Acute) Pancytopenia (Acute) Arthritis of left hip Atrial flutter Anticoagulant long-term use Unspecified atrial fibrillation MAVERICK (iron deficiency anemia) Vitamin D deficiency Chronic kidney disease, stage 3a Anemia has had eliquis on hold since 12/05/23 - pt has been receiving iron infusion and 3 blood transfusions since November 2023. Pleural effusion (Acute) Third degree heart block (Acute) reason for pacemaker Mediastinal adenopathy Sarcoid Chronic cystitis (Acute) Essential hypertension (Acute) Microalbuminuria (Acute) Mitral regurgitation (Acute) Recurrent UTI (Acute) Tricuspid regurgitation (Acute) Trigger finger, acquired (Acute) Venous insufficiency (Acute) Morbid obesity (Chronic) MAX (obstructive sleep apnea) (Chronic) cpap nightly LVH (left ventricular hypertrophy) (Chronic) Aortic stenosis (Chronic) mild calcific aortic stenosis noted on 2005 Echo at [facility] in 2019. 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) Medical History Overflow diarrhea Dysuria Low hemoglobin Diarrhea Acute UTI COVID-19 Hypokalemia HFrEF (heart failure with reduced ejection fraction) Generalized weakness Type 2 diabetes mellitus Non-Hodgkin's lymphoma B-cell lymphoma TREATMENT FOR 1 YEAR *R-CHOP (LAST TX 2018) Gastritis due to bacteria h.pylori positive gastritis; following with GI Tricuspid regurgitation mild per 10/02/23 ECHO History of GI bleed Eliquis on hold as result; GI currently working up; had EGD 12/2023 Coronary artery disease severe RCA stenosis per cath 07/05/22; med mgmt recommended Anemia has had eliquis on hold since 12/05/23 - pt has been receiving iron infusion and 3 blood transfusions since November 2023 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 Aortic stenosis mod-severe per 10/02/23 ECHO LVH (left ventricular hypertrophy) MAX (obstructive sleep apnea) cpap nightly Hyperlipidemia Venous insufficiency Mitral regurgitation mod-severe per 10/02/23 ECHO HTN (hypertension) Chronic cystitis Hx of sarcoidosis follows with Chronic kidney disease (CKD), stage III (moderate) Vitamin D deficiency Diastolic congestive heart failure, NYHA class 2 follows with heart failure clinic Unspecified atrial fibrillation cardioversion 09/2023 [facility] Atrial flutter cardioversion 09/2023 [facility] History of ventricular tachycardia 7 sec run of NSVT per 01/13/24 pacer report. per Cardio comments: "continue to monitor" History of third degree heart block reason for pacemaker Abnormal findings on esophagogastroduodenoscopy (EGD) 12/2023: h.pylori gastritis, hernia History of cardioversion 09/2023 at [facility] - successful. History of COVID-12 March 2021 - cold symptoms. no current issues Hx of cancer of uterus s/p hyster 2005 History of B-cell lymphoma treatment for 1 year in 2019 *R-CHOP. Recurrence noted in LN on 03/10/24 bronchoscopy Diabetes mellitus, type 2 IDDM Neuropathy Pacemaker Medtronic pacer placed 11/2021 for complete heart block. follows with [facility], last checked 12/2023 Mediastinal lymphadenopathy Surgical History Port-A-Cath in place (04/02/24) Insertion Access Port with Fluoroscopy(Not Applicable) - Eddie Pineda DO, FACS Status post PICC central line placement Right IJ port placed for chemo 2018 (subsequently removed) S/P trigger finger release right hand History of cardiac catheterization 06/2022 [facility] - sob - no stents History of removal of Port-a-Cath Remove Access Port(Right) - Eddie Pineda DO, FACS [id number] H/O breast biopsy benign H/O total hysterectomy MAYITO and BSO 2006 History of tooth extraction History of cataract surgery bilateral History of bronchoscopy Status post placement of cardiac pacemaker 11/28/21 H/O excision of mass left neck (lymphoma) History of total knee arthroplasty bilateral History of tonsillectomy and adenoidectomy H/O colonoscopy Family History Grandfather (Maternal) Family history of diabetes mellitus Family/Other Family history of diabetes mellitus Father Myocardial infarction Family history of esophageal cancer Other No family history of adverse response to anesthesia Denies family history of Ovarian cancer Prostate cancer Breast cancer Colorectal cancer Social History Smoking Status: Never smoker Second Hand Exposure: Yes (hx); Do You Dip or Chew Tobacco: No; Hx Alcohol Use: No Hx Substance Use: No Preferred Language: Norwegian Communication Ability: Effective Visual Impairment: No Limitations Hearing Ability: Normal Dramatic Agent Required: No Beliefs That Will Affect Care: None marital status: Current Living Situation: Alone, Personal Care Facility and Rehab Current Living Situation Comment: Came from [facility] current occupational status: employed current occupation: [email or web address] How many Children do You have: 1 Feels Safe at Home: Yes Childhood Exposure to Second-Hand Smoke: Yes Diet: regular caffeine: Yes during the past year weight has: remained stable Dental Care, Regularly: Yes Physical Activity Frequency: Does not Exercise Seatbelt Use: always Sunscreen Use: Yes Assistive Devices: Cane and Walker Review of Systems Review of Systems: All systems reviewed & are unremarkable except as noted in HPI & below Physical Exam Physical Exam: In general she is awake and alert but very fatiguedalthough she does brighten up more throughout the visit, starts to interact more, talks with her sister a little bit over speaker phone. Technically seems to not be oriented to place, although she is to selfbut loosely seems to be aware that she is in healthcare facility and somewhat implies the hospital if not overtly states it. She appears very fatigued and somewhat pale. No pain or respiratory distress. HEENT normocephalic atraumatic mucous membranes are dry. Cardio is regular with a systolic murmur. Lungs are clear somewhat suboptimal exam due to her wea kness and positioning but no rales rhonchi wheezes no conversational dyspnea no accessory muscle use good effort. Abdomen is soft mild to moderately distended but nontender no guarding rebound or rigidity. Extremities are without cyanosis or clubbing, she has bilateral lower extremity edema that is equal and symmetric. Skin shows scattered bruising, I know she has wounds but I am unable to fully assess them due to her weakness. Neuro shows cranial nerves II through XII to be grossly intact with the exception of extremely mild right corner of her mouth droop that largely corrects, and her motor is 3+ out of 5 bilateral upper and lower extremities although interestingly she seems to favor moving the left side but it seems like she can move the right equally just puts less effort into it, and sensation is a little bit difficult to assess due to her delirious and this, but seems to be equal and intact bilaterally. Results & Data Results & Data Vital Signs (Past 12 Hours) Vital Signs Pulse Resp BP Pulse Ox O2 Del Method 09/26/24 18:33 105 H 26 H 95 Room Air 09/26/24 18:30 143/91 H 09/26/24 18:27 103 H 30 H 95 Room Air 09/26/24 18:24 103 H 29 H 95 Room Air 09/26/24 18:09 109 H 30 H 95 Room Air 09/26/24 17:34 89 09/26/24 17:34 88 30 H 115/60 94 Room Air 09/26/24 17:30 115/60 09/26/24 17:30 91 H 32 H 09/26/24 17:26 114/59 L PG Care Time/CCT Total # of Minutes Spent Total Time Spent with Patient: Total time spent is greater than 50% in coordination of care (as documented) at patient's floor/unit and/or counseling patient: Coding Level of Care Code 27024 INT INP/OBS CARE 3/75MIN Diagnoses Generalized weakness R53.1 Hyponatremia E87.[address] R93.0 Anemia D64.9 Thrombocytopenia D69.6 Atrial flutter I48.92 Chronic kidney disease, stage 3a N18.31 DVT prophylaxis Z29.9 Discharge planning issues Z75.8
--- NOTE | 2024-09-26 19:58 | XRay Report ---
EXAM: Portable AP chest radiograph TECHNIQUE: AP portable radiograph of the chest was obtained. INDICATION: Shortness of breath Comparison: Chest radiograph September 08, 2024 FINDINGS: LINES and TUBES: Redemonstrated left-sided cardiac pacemaker with leads projecting over the right atrium and the right ventricle of the heart. Right-sided Port-A-Cath with tip projecting over the superior cavoatrial junction. CARDIOVASCULAR: Cardiac silhouette is stably enlarged in size. LUNGS/PLEURA: Redemonstrated soft tissue fullness over the right hilus. Patchy bibasilar densities likely atelectasis. No significant pleural fluid. No discernible pneumothorax. OSSEOUS/OTHER: No displaced acute osseous process identified. IMPRESSION: Congestive changes of the cardiovascular system as above, similar to previous. Redemonstrated soft tissue fullness of the right hilus, also similar to previous. Patchy bibasilar densities may be atelectasis however please clinically exclude mild airspace disease. Electronically signed by Jc Ayala 09-26-2024 7:58 PM
[2024-09-26 20:42] LABS: Adenovirus PCR Not Detected (NotDetected); Bordetella parapertussis PCR Not Detected (NotDetected); Bordetella pertussis PCR Not Detected (NotDetected); Chlamydia pneumoniae PCR Not Detected (NotDetected); Coronavirus 229E PCR Not Detected (NotDetected); Coronavirus CoV-2 (COVID19)PCR DETECTED (NotDetected); Coronavirus HKU1 PCR Not Detected (NotDetected); Coronavirus NL63 PCR Not Detected (NotDetected); Coronavirus OC43PCR Not Detected (NotDetected); Human Metapneumovirus PCR Not Detected (NotDetected); Influenza A PCR Not Detected (NotDetected); Influenza B PCR Not Detected (NotDetected); Mycoplasma pneumoniae PCR Not Detected (NotDetected); Parainfluenza Virus 1 PCR Not Detected (NotDetected); Parainfluenza Virus 2 PCR Not Detected (NotDetected); Parainfluenza Virus 3 PCR Not Detected (NotDetected); Parainfluenza Virus 4 PCR Not Detected (NotDetected); Respiratory Syncytial VirusPCR Not Detected (NotDetected); Rhinovirus/Enterovirus PCR Not Detected (NotDetected)
[2024-09-26] MEDS ORDERED: ALUMINUM/MAGNESIUM SUSP 30 ML UDC PO PRN (22:01)
[2024-09-26] MEDS ORDERED: bisacodyL 5 MG TABEC PO PRN (22:01)
[2024-09-26] MEDS ORDERED: MAGNESIUM HYDROXIDE SUSP 30 ML UDC PO PRN (22:01)
[2024-09-26] MEDS ORDERED: ACETAMINOPHEN 325 MG TAB PO PRN (22:01)
[2024-09-26] MEDS ORDERED: NON-FORMULARY MEDICATION (Blood-Glucose Sensor [Dexcom G7 Sensor] device) SCH (22:01)
[2024-09-26] MEDS ORDERED: SENNA 8.6 MG TAB PO PRN (22:01)
[2024-09-26] MEDS ORDERED: NON-FORMULARY MEDICATION (Blood-Glucose Meter,Continuous [Dexcom G7 Receiver] misc) SCH (22:01)
[2024-09-26] MEDS ORDERED: ALBUTEROL HFA 8 GM INHALER INH PRN (22:01)
[2024-09-26] MEDS ORDERED: PROCHLORPERAZINE MALEATE 10 MG TAB PO PRN (22:01)
[2024-09-26] MEDS ORDERED: LORATADINE 10 MG TAB PO PRN (22:01)
[2024-09-26] MEDS ORDERED: ONDANSETRON INJ 2 MG/ML 2 ML VIAL IV PRN (22:01)
[2024-09-26] MEDS ORDERED: DOCUSATE SODIUM 100 MG CAP PO PRN (22:01)
[2024-09-26] MEDS ORDERED: PHENAZOPYRIDINE HCL 200 MG TAB PO PRN (22:01)
[2024-09-26] MEDS ORDERED: SODIUM CHLORIDE 0.9% 1,000 ML IV SCH (22:01)
[2024-09-26] MEDS ORDERED: CARBOHYDRATES FOR HYPOGLYCEMIA PO PRN (22:15)
[2024-09-26] MEDS ORDERED: GLUCOSE 40% GEL 15 GM TUBE PO PRN (22:15)
[2024-09-26] MEDS ORDERED: GLUCOSE 10 TAB/TUBE PO PRN (22:15)
[2024-09-26] MEDS ORDERED: GLUCAGON FOR INJ 1 MG VIAL SQ PRN (22:15)
[2024-09-26] MEDS ORDERED: DEXTROSE 50% 50 ML SYRINGE IV PRN (22:15)
--- OUTSIDE RECORDS SUMMARY | 2024-09-26 23:48 | External Medical Summary | Continuity Of Care Document ---
Author Name Unknown Address [address] [address] [facility] () Care Team Providers Care Dressing Room Attendant Name Role Phone DO Perdomo Amy Primary Care Provider [phone] Allergies Allergy Reaction Start Date End Date [...] 3 0.1 mL 09/01 Inactiv e 2023 32871 84307 0 1 time Intrad ermal False Tubersol 5 tub. unit/0.1 mL intradermal injection solution [Tuberculin PPD] 0.1mL Intradermal 1 time For PPD 2nd Step Give 2nd Step PPD Day 1 and Read results Day 3 (schedule 7 days after 1st READ) 0.1mL 09/10 Inactiv e 2023 75166 64210 0 1 time Intrad ermal False Tylenol 325 mg tablet 2 tabs By Mouth Every 4 hours as needed For Pain DO NOT EXCEED 3000 MG APAP/24 Hours 2 tabs 09/02 Inactiv e 2023 43502 47447 0 Every 4 hours as needed By Mouth False Tylenol 325 mg tablet 2 tabs By Mouth Every 4 hours as needed For Fever >100 DO NOT EXCEED 3000 MG APAP/24 Hours 2 tabs 2023 00/00 /0000 Active 2023 98604 34668 0 Every 4 hours as needed By Mouth False Dulcolax (bisacodyl) 10 mg rectal suppository One Suppository per rectum PRN if Milk of Magnisia ineffective. Give on day 5 of no BM 1 sup 2023 Active 2023 59395 31453 1 Daily as needed Rectal False Fleet Enema 19 gram-7 gram/118 mL Administer per rectum PRN one time if dulcolax suppository not effective. Give on day 6 of no BM 1 2023 Active 2023 61851 85521 6 Daily as needed Rectal False Dextrose 50 % in water (D50W) intravenous solution [generic] Dextrose 50% jose manuel 20-50 ml (slow push) Intravenous if Glucagon not effective after 15 minutes. CALL 911 for ED Evaluation. 50% jose manuel 2023 Active 2023 10335 17976 9 Intrav enous False Glucagon (HCl) Emergency Kit 1 mg solution for injection Administer Glucagon 1 mg Intramuscular if 15 minutes after GLucose Gel is administered Glucose remains less than 70 1 mg 2023 Active 2023 75514 92051 2 Intram uscula r False Glucose Gel 40 % oral gel [Dextrose] PRN If resident is unable to swallow (with or without symptoms) and Glucose results less than 70 give GLucose 40% Gel 1 tube orally - Recheck Glucose 15 minutes after administratio n. 1 tube 2023 Active 2023 19086 99569 8 By Mouth False Santyl 250 unit/gram topical ointment dose Topical Once daily to wound bed daily with wound care For Unstageable Pressure injury dose 2023 Active 2023 87748 35064 0 Once daily Topica l False Fluconazole 200 mg tablet [generic] 1 tab By Mouth Once daily For Yeast infection 1 tab 09/01 Inactiv e 2023 49486 35882 3 Once daily By Mouth False Phenazopyri dine 200 mg tablet [generic] 1 tab By Mouth Three times daily as needed For pain 1 tab 09/02 Inactiv e 2023 00407 68865 1 Three times daily as needed By Mouth False Aspirin 81 mg tablet,zaki yed release [generic] 1 tab By Mouth At bedtime For CAD 1 tab 2023 Active 2023 05696 86831 9 At bedtime By Mouth False BD AutoShield Duo Pen Needle 30 gauge x 3/16in 1 4 times a day subcutaneous 4 times a day change needle wqith every use of insulin For Type 2 diabetes Mellitus 1 2023 Active 2023 36546 24764 5 4 times a day Subcut aneous False Albuterol sulfate HFA 90 mcg/actuati on aerosol inhaler [generic] 2 puff Inhalation Every 6 hours as needed For SOB or wheezing 2 puff 2023 Active 2023 99028 87659 2 Every 6 hours as needed Inhala tion False Tramadol 50 mg tablet [generic] 1 tab By Mouth Every 6 hours as needed For pain 1 tab 09/02 Inactiv e 2023 71830 73657 0 Every 6 hours as needed By Mouth False Docusate sodium 100 mg tablet [generic] 1 tab Daily as needed For constipation 1 tab 2023 Active 2023 32399 36112 1 Daily as needed By Mouth False Senna Laxative 8.6 mg tablet 1 tab By Mouth Daily as needed For constipation 1 tab 2023 Active 2023 86445 36671 0 Daily as needed By Mouth False Potassium chloride ER 20 mEq tablet,exte nded release [generic] 1 tab By Mouth Twice daily For hypokalemia 1 tab 2023 Active 2023 31976 51326 1 Twice daily By Mouth False Acyclovir 400 mg tablet [generic] 1 tab By Mouth Twice daily For preventative B-cell lymphoma 1 tab 2023 Active 2023 25765 48468 1 Twice daily By Mouth False Pantoprazol e 40 mg tablet,zaki yed release [generic] 1 tab By Mouth Once daily For gerd 1 tab 09/02 Inactiv e 2023 24154 60758 0 Once daily By Mouth False Metformin 1,000 mg tablet [generic] 1 tab By Mouth Twice daily For DM2 1 tab 09/02 Inactiv e 2023 97406 08849 0 Twice daily By Mouth False Rosuvastati n 20 mg tablet [generic] 1 tab By Mouth At bedtime For hyperlipdemia 1 tab 2023 Active 2023 99907 95442 0 At bedtime By Mouth False Polyethylen e glycol 3350 (bulk) powder [generic] 17 g By Mouth Daily as needed For constipation 17 g 2023 Active 2023 90550 48488 1 Daily as needed By Mouth False Prochlorper azine maleate 10 mg tablet [generic] 1 tab By Mouth Every 6 hours as needed For nausea 1 tab 09/02 Inactiv e 2023 87024 47920 1 Every 6 hours as needed By Mouth False Bisacodyl 5 mg tablet,zaki yed release [generic] 1 tab By Mouth Daily as needed For constipation 1 tab 2023 Active 2023 44237 77399 1 Daily as needed By Mouth False Lorazepam 0.5 mg tablet [generic] 1 tab By Mouth At bedtime as needed For anxiety 1 tab 09/02 Inactiv e 2023 71602 62759 1 At bedtime as needed By Mouth False Insulin glargine (U-300) conc. 300 unit/mL (3 mL) subcutaneou s pen [generic] 40 units Subcutaneous At bedtime For DM2 40 units 09/02 Inactiv e 2023 87158 75726 2 At bedtime Subcut aneous False Jardiance 10 mg tablet 1 tab By Mouth Once daily For DM2 1 tab 2023 Active 2023 94450 45559 7 Once daily By Mouth False Insulin [...] time order For diabetes 2023 Active 2023 05246 79919 5 3 times a day Subcut aneous False Sulfamethox azole 800 mg-trimetho prim 160 mg tablet [generic] 1 tab By Mouth 3 times a week on sunday, sunday, sunday For UTI 1 tab 09/02 Inactiv e 2023 56266 65286 1 3 times a week By Mouth False Gemtesa 75 mg tablet 75mg By Mouth Once daily For urinary management 75mg 2023 Active 2023 64537 65191 7 Once daily By Mouth False Losartan 25 mg tablet [generic] 25mg By Mouth Once daily For HTN 25mg 09/07 Inactiv e 2023 86604 22507 9 Once daily By Mouth False Ozempic 1 mg/dose (4 mg/3 mL) subcutaneou s pen injector 1mg Subcutaneous Every week For diabetes 1mg 09/04 Inactiv e 2023 68196 97855 3 Every week Subcut aneous False Carvedilol 12.5 mg tablet [generic] 12.5mg By Mouth Twice daily For CAD 12.5mg 09/07 Inactiv e 2023 78837 65945 0 Twice daily By Mouth False Loratadine 10 mg tablet [generic] 10 By Mouth Once daily As Needed For CHEMO 10 09/02 Inactiv e 2023 25536 98623 9 Once daily By Mouth False Loperamide 2 mg tablet [generic] 2mg By Mouth Every 6 hours As Needed For diarrhea 2mg 2023 Active 2023 44393 90192 6 Every 6 hours By Mouth False Spironolact one 25 mg tablet [generic] 25mg By Mouth Once daily For HTN 25mg 09/04 Inactiv e 2023 24659 59001 1 Once daily By Mouth False Lasix 40 mg tablet 40 By Mouth Once daily For htn 40 09/04 Inactiv e 2023 14149 79988 1 Once daily By Mouth False Ondansetron HCl 8 mg tablet [generic] 8mg By Mouth Every 8 hours For Encephalopath y 8mg 09/02 Inactiv e 2023 88448 26731 0 Every 8 hours By Mouth False Levofloxaci n 750 mg tablet [generic] 750 mg By Mouth Once daily For UTI 750 mg 09/02 Inactiv e 2023 64422 27429 6 Once daily By Mouth False Miralax 17 gram/dose oral powder 17grams By Mouth Once daily For constipation 17grams 09/03 Inactiv e 2023 72641 00302 0 Once daily By Mouth False Sulfamethox azole 800 mg-trimetho prim 160 mg tablet [generic] 09/02 Inactiv e 2023 23658 32503 1 Sulfamethox azole 800 mg-trimetho prim 160 mg tablet [generic] 1 tab By Mouth 3 times a week on sunday, sunday, sunday For UTI 1 tab 09/02 Inactiv e 2023 59690 89745 1 3 times a week By Mouth False Sulfamethox azole 800 mg-trimetho prim 160 mg tablet [generic] 09/02 Inactiv e 2023 84387 74619 1 Sulfamethox azole 800 mg-trimetho prim 160 mg tablet [generic] 1 tab By Mouth 3 times a week on sunday, sunday, sunday For UTI 1 tab 2023 00/00 /0000 Active 2023 04319 87591 1 3 times a week By Mouth False Polyethylen e glycol 3350 17 gram/dose oral powder [generic] 17 grams By Mouth Once daily For contispation 17 grams 09/04 Inactiv e 2023 23417 51128 4 Once daily By Mouth False Posaconazol e 100 mg tablet,zaki yed release [generic] 300mg By Mouth Once daily For Antifungal 300mg 09/18 Active 2023 35698 66929 0 Once daily By Mouth False Senna 8.6 mg tablet 2 tabs By Mouth Twice daily For contispation 2 tabs 2023 Active 2023 62991 33895 1 Twice daily By Mouth False ProSource No Carb 15 gram-60 kcal/30 mL oral liquid 30 ml By Mouth Once daily For Wound - Note total ml consumed 30 ml 2023 Active 2023 88860 61155 5 Once daily By Mouth False Levofloxaci n 500 mg tablet [generic] 500 mg By Mouth Once daily For Prophylaxis 500 mg 2023 Active 2023 95431 09488 8 Once daily By Mouth False Mirtazapine 7.5 mg tablet [generic] 7.5 mg By Mouth Once daily For Depression 7.5 mg 2023 Active 2023 79067 15868 5 Once daily By Mouth False Prochlorper azine maleate 10 mg tablet [generic] 09/02 Inactiv e 2023 50176 29326 1 Prochlorper azine maleate 10 mg tablet [generic] 1 tab By Mouth Every 6 hours as needed For nausea 1 tab 09/16 Active 2023 41331 35253 1 Every 6 hours as needed By Mouth False Ondansetron HCl 8 mg tablet [generic] 09/02 Inactiv e 2023 83190 05541 0 Ondansetron HCl 8 mg tablet [generic] 8mg By Mouth Every 8 hours For Nausea 8mg 2023 Active 2023 33185 13539 0 Every 8 hours By Mouth False Lorazepam 0.5 mg tablet [generic] 09/02 Inactiv e 2023 99206 44044 1 Lorazepam 0.5 mg tablet [generic] 1 tab By Mouth At bedtime as needed For anxiety 1 tab 09/02 Inactiv e 2023 61749 21706 1 At bedtime as needed By Mouth False Loratadine 10 mg tablet [generic] 09/02 Inactiv e 2023 50187 57345 9 Loratadine 10 mg tablet [generic] 10 By Mouth Once daily As Needed For when receiving chemotherapy 10 202300 Active 2023 87249 99290 9 Once daily By Mouth False Tramadol 50 mg tablet [generic] 09/02 Inactiv e 2023 05964 89813 0 Tramadol 50 mg tablet [generic] 1 tab By Mouth Every 6 hours as needed For moderate/mynor re pain 1 tab 09/02 Inactiv e 2023 86603 62872 0 Every 6 hours as needed By Mouth False Phenazopyri dine 200 mg tablet [generic] 09/02 Inactiv e 2023 97792 19397 1 Phenazopyri dine 200 mg tablet [generic] 1 tab By Mouth Three times daily as needed For bladder pain 1 tab 202300 Active 2023 90059 79401 1 Three times daily as needed By Mouth False Tylenol 325 mg tablet 09/02 Inactiv e 2023 36321 97279 0 Tylenol 325 mg tablet 2 tabs By Mouth Every 4 hours as needed For DO NOT EXCEED 3000 MG APAP/24 Hours For mild Pain 2 tabs 202300 / Active 2023 50109 39899 0 Every 4 hours as needed By Mouth False Metformin 1,000 mg tablet [generic] 09/02 Inactiv e 2023 92747 01000 0 Metformin 1,000 mg tablet [generic] 1 tab By Mouth Twice daily with meals For DM2 1 tab 2023 Active 2023 02395 67737 0 Twice daily By Mouth False Pantoprazol e 40 mg tablet,zaki yed release [generic] 09/02 Inactiv e 2023 92189 91544 0 Pantoprazol e 40 mg tablet,zaki yed release [generic] 1 tab By Mouth Once daily For gerd 1 tab 2023 Active 2023 24861 45512 0 Once daily By Mouth False Tramadol 50 mg tablet [generic] 09/02 Inactiv e 2023 55074 62074 0 Tramadol 50 mg tablet [generic] 1 tab By Mouth Every 6 hours as needed For moderate/mynor re pain 1 tab 2023 Active 2023 92810 91169 0 Every 6 hours as needed By Mouth False Lorazepam 0.5 mg tablet [generic] 09/02 Inactiv e 2023 81186 63143 1 Lorazepam 0.5 mg tablet [generic] 1 tab By Mouth At bedtime as needed For anxiety 1 tab 2023 Active 2023 81873 69145 1 At bedtime as needed By Mouth False Polyethylen e glycol 3350 17 gram/dose oral powder [generic] 17 grams By Mouth Daily as needed PRN For order changed to PRN daily forcontispati on 17 grams 2023 Active 2023 99591 97626 4 Daily as needed By Mouth False Spironolact one 25 mg tablet [generic] 12.5 mg By Mouth Once daily For ESSENTIAL (PRIMARY) HYPERTENSION 12.5 mg 2023 Active 2023 44774 79573 1 Once daily By Mouth I10. False Furosemide 20 mg tablet [generic] 20 mg By Mouth Once daily For UNSPECIFIED SYSTOLIC (CONGESTIVE) HEART FAILURE 20 mg 2023 Active 2023 89806 27133 0 Once daily By Mouth I50.20 False Carvedilol 12.5 mg tablet [generic] 09/07 Inactiv e 2023 76287 48906 0 Carvedilol 12.5 mg tablet [generic] 12.5mg By Mouth Twice daily For CAD hold for systolic b/p less than 100 12.5mg 202300 0000 Active 2023 29507 78367 0 Twice daily By Mouth False Losartan 25 mg tablet [generic] 09/07 Inactiv e 2023 53880 32704 9 Losartan 25 mg tablet [generic] 25mg By Mouth Once daily For HTN 25mg 202300 Active 2023 44098 44340 9 Once daily By Mouth False Unstageable with Drainage wwound bed Topical Once daily Site Coccyx Cleanse with dakins 25%pat dry, apply SANTYL, cover with border gauze For wound care wwound bed 2023 Active 2023 Once daily Topica l False VITAL SIGNS Date Time Diastolic blood pressure Systolic blood pressure Body height Body weight Temperature SpO2 Blood Sugar Pulse Respirations 76594 206 35210 1 64.00 mm[Hg] - Sitting 109.00 mm[Hg] - Sitting 98.70 Tympanic 90.00 % 64.00/ min 16.00/min 206 69908 0 178.60 NI 68491 206 37571 6 63 NI 206 28295 4 72.00 mm[Hg] - Sitting 121.00 mm[Hg] - Sitting 100.40 Forehead Scan 92.00 % 60.00/ min 18.00/min 206 84644 8 72.00 mm[Hg] - Sitting 121.00 mm[Hg] - Sitting 100.40 Tympanic 206 07179 9 60.00/ min 18.00/min 206 32223 5 148.00 mg/dL 207 56201 7 63.00 mm[Hg] - Sitting 122.00 mm[Hg] - Sitting 100.40 Tympanic 60.00/ min 18.00/min 207 90781 7 55.00 mm[Hg] - Sitting 104.00 mm[Hg] - Sitting 98.40 Forehead Scan 96.00 % 66.00/ min 18.00/min 80180 207 18397 5 120.00 mg/dL 66402 207 85214 6 101.00 mg/dL 47128 207 36920 8 63.00 mm[Hg] - Sitting 122.00 mm[Hg] - Sitting 62563 207 20724 7 134.00 mg/dL 55131 207 57437 9 134.00 mg/dL 06166 207 39396 0 127.00 mg/dL 65591 207 70376 7 127.00 mg/dL 59394 207 37012 9 122.00 mg/dL 91312 208 86025 9 62.00 mm[Hg] - Sitting 106.00 mm[Hg] - Sitting 98.60 Tympanic 66.00/ min 18.00/min 47370 208 00335 3 117.00 mg/dL 27412 208 90425 2 155.00 mg/dL 41385 208 37356 6 98.60 Tympanic 77023 208 68444 1 123.00 mg/dL 18003 208 07605 2 123.00 mg/dL 95084 208 77918 4 62.00 mm[Hg] - Sitting 106.00 mm[Hg] - Sitting 81232 208 17118 7 123.00 mg/dL 44471 208 48254 1 123.00 mg/dL 78898 208 32828 7 136.00 mg/dL 21969 209 49200 0 60.00 mm[Hg] - Sitting 113.00 mm[Hg] - Sitting 98.50 Forehead Scan 98.00 % 61.00/ min 16.00/min 70186 209 20747 7 114.00 mg/dL 04916 209 16755 7 111.00 mg/dL 31920 209 40841 0 98.00 Tympanic 36112 209 01194 2 68.00 mm[Hg] - Sitting 118.00 mm[Hg] - Sitting 19024 209 61490 5 156.00 mg/dL 43447 209 98586 4 156.00 mg/dL 40581 209 21409 5 132.00 mg/dL 73070 209 76589 4 132.00 mg/dL 35761 209 65307 0 136.00 mg/dL 61729 210 28757 0 52.00 mm[Hg] - Sitting 119.00 mm[Hg] - Sitting 98.40 Forehead Scan 96.00 % 57.00/ min 18.00/min 06939 210 85927 9 107.00 mg/dL 10497 210 03822 7 108.00 mg/dL 18152 210 58124 8 97.00 Tympanic 01419 210 85279 2 126.00 mg/dL 28105 210 81016 0 126.00 mg/dL 85757 210 44683 9 126.00 mg/dL 99919 210 45524 2 154.00 mg/dL 54703 211 58499 0 53.00 mm[Hg] - Lying Down 104.00 mm[Hg] - Lying Down 98.90 Tympanic 93.00 % 60.00/ min 18.00/min 82112 211 05835 0 62.00 mm[Hg] - Sitting 72.00 mm[Hg] - Sitting 98.30 Tympanic 96.00 % 62.00/ min 18.00/min 39356 211 11772 9 136.00 mg/dL 53631 211 56461 8 131.00 mg/dL 98055 211 15828 3 118.00 mg/dL 38119 211 89438 9 130.00 mg/dL 58476 212 16264 7 46.00 mm[Hg] - Sitting 101.00 mm[Hg] - Sitting 98.50 Tympanic 96.00 % 62.00/ min 20.00/min 64997 212 34928 1 110.00 mg/dL 28087 212 02815 8 110.00 mg/dL 72373 212 16328 8 152.00 mg/dL 93165 212 73384 0 120.00 mg/dL 60634 213 72020 9 123.00 mg/dL 76971 213 96556 9 123.00 mg/dL 73630 213 47293 5 38373 213 97049 2 86664 213 05505 8 81535 213 55028 8 95211 213 57724 5 134.00 mg/dL 19309 214 02002 5 50.00 mm[Hg] - Sitting 108.00 mm[Hg] - Sitting 98.20 Tympanic 97.00 % 60.00/ min 20.00/min 91471 214 40273 0 53.00 mm[Hg] - Sitting 104.00 mm[Hg] - Sitting 97.80 Tympanic 97.00 % 61.00/ min 18.00/min 36337 214 58176 4 122.00 mg/dL 52780 214 55646 2 122.00 mg/dL 96701 214 75990 7 142.00 mg/dL 99489 214 13604 4 142.00 mg/dL 92890 214 31786 7 115.00 mg/dL 33640 214 57698 9 115.00 mg/dL 44861 214 40063 1 121.00 mg/dL 27645 215 39272 5 97.80 Forehead Scan 98.00 % 60.00/ min 18.00/min 24759 215 11806 6 46.00 mm[Hg] - Lying Down 85.00 mm[Hg] - Lying Down 05858 215 05153 5 130.00 mg/dL 76428 215 06420 8 130.00 mg/dL 88116 215 38843 5 130.00 mg/dL 36093 215 44722 2 117.00 mg/dL 54673 215 02607 3 138.00 mg/dL 68895 216 32071 1 62.00 mm[Hg] - Lying Down 90.00 mm[Hg] - Lying Down 48812 216 97269 3 94.00 mg/dL 16733 216 12470 1 36.00 mm[Hg] - Sitting 80.00 mm[Hg] - Sitting 21790 216 49483 9 33114 216 35073 1 72317 216 00582 5 32620 216 71899 0 17922 216 15846 3 Immunizations Vaccine Date Status Influenza 08/29/2024 Completed (PCV13)Pneumococcal 08/29/2024 Completed
--- OUTSIDE RECORDS SUMMARY | 2024-09-26 23:48 | External Medical Summary | Continuity Of Care Document ---
Author Name Unknown Address [address] [address] [facility] () Care Team Providers Care Office Administration Instructor Name Role Phone DO Perdomo Amy Primary Care Provider [phone] Allergies Allergy Reaction Start Date End Date [...] 3 0.1 mL 09/01 Inactiv e 2023 19932 46280 0 1 time Intrad ermal False Tubersol 5 tub. unit/0.1 mL intradermal injection solution [Tuberculin PPD] 0.1mL Intradermal 1 time For PPD 2nd Step Give 2nd Step PPD Day 1 and Read results Day 3 (schedule 7 days after 1st READ) 0.1mL 09/10 Inactiv e 2023 32686 64218 0 1 time Intrad ermal False Tylenol 325 mg tablet 2 tabs By Mouth Every 4 hours as needed For Pain DO NOT EXCEED 3000 MG APAP/24 Hours 2 tabs 09/02 Inactiv e 2023 48746 73949 0 Every 4 hours as needed By Mouth False Tylenol 325 mg tablet 2 tabs By Mouth Every 4 hours as needed For Fever >100 DO NOT EXCEED 3000 MG APAP/24 Hours 2 tabs 2023 00/00 /0000 Active 2023 14938 80786 0 Every 4 hours as needed By Mouth False Dulcolax (bisacodyl) 10 mg rectal suppository One Suppository per rectum PRN if Milk of Magnisia ineffective. Give on day 5 of no BM 1 sup 2023 Active 2023 75094 38007 1 Daily as needed Rectal False Fleet Enema 19 gram-7 gram/118 mL Administer per rectum PRN one time if dulcolax suppository not effective. Give on day 6 of no BM 1 2023 Active 2023 10941 62001 6 Daily as needed Rectal False Dextrose 50 % in water (D50W) intravenous solution [generic] Dextrose 50% jose manuel 20-50 ml (slow push) Intravenous if Glucagon not effective after 15 minutes. CALL 911 for ED Evaluation. 50% jose manuel 2023 Active 2023 99604 07904 9 Intrav enous False Glucagon (HCl) Emergency Kit 1 mg solution for injection Administer Glucagon 1 mg Intramuscular if 15 minutes after GLucose Gel is administered Glucose remains less than 70 1 mg 2023 Active 2023 98410 58747 2 Intram uscula r False Glucose Gel 40 % oral gel [Dextrose] PRN If resident is unable to swallow (with or without symptoms) and Glucose results less than 70 give GLucose 40% Gel 1 tube orally - Recheck Glucose 15 minutes after administratio n. 1 tube 2023 Active 2023 00038 85544 8 By Mouth False Santyl 250 unit/gram topical ointment dose Topical Once daily to wound bed daily with wound care For Unstageable Pressure injury dose 2023 Active 2023 99197 56795 0 Once daily Topica l False Fluconazole 200 mg tablet [generic] 1 tab By Mouth Once daily For Yeast infection 1 tab 09/01 Inactiv e 2023 71404 57989 3 Once daily By Mouth False Phenazopyri dine 200 mg tablet [generic] 1 tab By Mouth Three times daily as needed For pain 1 tab 09/02 Inactiv e 2023 87719 28064 1 Three times daily as needed By Mouth False Aspirin 81 mg tablet,zaki yed release [generic] 1 tab By Mouth At bedtime For CAD 1 tab 2023 Active 2023 74838 81502 9 At bedtime By Mouth False BD AutoShield Duo Pen Needle 30 gauge x 3/16in 1 4 times a day subcutaneous 4 times a day change needle wqith every use of insulin For Type 2 diabetes Mellitus 1 2023 Active 2023 36345 90609 5 4 times a day Subcut aneous False Albuterol sulfate HFA 90 mcg/actuati on aerosol inhaler [generic] 2 puff Inhalation Every 6 hours as needed For SOB or wheezing 2 puff 2023 Active 2023 00118 26476 2 Every 6 hours as needed Inhala tion False Tramadol 50 mg tablet [generic] 1 tab By Mouth Every 6 hours as needed For pain 1 tab 09/02 Inactiv e 2023 49183 89115 0 Every 6 hours as needed By Mouth False Docusate sodium 100 mg tablet [generic] 1 tab Daily as needed For constipation 1 tab 2023 Active 2023 07453 61400 1 Daily as needed By Mouth False Senna Laxative 8.6 mg tablet 1 tab By Mouth Daily as needed For constipation 1 tab 2023 Active 2023 66046 05003 0 Daily as needed By Mouth False Potassium chloride ER 20 mEq tablet,exte nded release [generic] 1 tab By Mouth Twice daily For hypokalemia 1 tab 2023 Active 2023 22506 67155 1 Twice daily By Mouth False Acyclovir 400 mg tablet [generic] 1 tab By Mouth Twice daily For preventative B-cell lymphoma 1 tab 2023 Active 2023 78766 94048 1 Twice daily By Mouth False Pantoprazol e 40 mg tablet,zaki yed release [generic] 1 tab By Mouth Once daily For gerd 1 tab 09/02 Inactiv e 2023 37057 48521 0 Once daily By Mouth False Metformin 1,000 mg tablet [generic] 1 tab By Mouth Twice daily For DM2 1 tab 09/02 Inactiv e 2023 60208 23389 0 Twice daily By Mouth False Rosuvastati n 20 mg tablet [generic] 1 tab By Mouth At bedtime For hyperlipdemia 1 tab 2023 Active 2023 32846 32925 0 At bedtime By Mouth False Polyethylen e glycol 3350 (bulk) powder [generic] 17 g By Mouth Daily as needed For constipation 17 g 2023 Active 2023 42146 81325 1 Daily as needed By Mouth False Prochlorper azine maleate 10 mg tablet [generic] 1 tab By Mouth Every 6 hours as needed For nausea 1 tab 09/02 Inactiv e 2023 97166 16564 1 Every 6 hours as needed By Mouth False Bisacodyl 5 mg tablet,zaki yed release [generic] 1 tab By Mouth Daily as needed For constipation 1 tab 2023 Active 2023 72271 59785 1 Daily as needed By Mouth False Lorazepam 0.5 mg tablet [generic] 1 tab By Mouth At bedtime as needed For anxiety 1 tab 09/02 Inactiv e 2023 44921 15768 1 At bedtime as needed By Mouth False Insulin glargine (U-300) conc. 300 unit/mL (3 mL) subcutaneou s pen [generic] 40 units Subcutaneous At bedtime For DM2 40 units 09/02 Inactiv e 2023 38215 07960 2 At bedtime Subcut aneous False Jardiance 10 mg tablet 1 tab By Mouth Once daily For DM2 1 tab 2023 Active 2023 89939 15100 7 Once daily By Mouth False Insulin [...] time order For diabetes 2023 Active 2023 35344 87816 5 3 times a day Subcut aneous False Sulfamethox azole 800 mg-trimetho prim 160 mg tablet [generic] 1 tab By Mouth 3 times a week on sunday, sunday, sunday For UTI 1 tab 09/02 Inactiv e 2023 50059 59410 1 3 times a week By Mouth False Gemtesa 75 mg tablet 75mg By Mouth Once daily For urinary management 75mg 2023 Active 2023 54485 55324 7 Once daily By Mouth False Losartan 25 mg tablet [generic] 25mg By Mouth Once daily For HTN 25mg 09/07 Inactiv e 2023 28885 05028 9 Once daily By Mouth False Ozempic 1 mg/dose (4 mg/3 mL) subcutaneou s pen injector 1mg Subcutaneous Every week For diabetes 1mg 09/04 Inactiv e 2023 36050 09665 3 Every week Subcut aneous False Carvedilol 12.5 mg tablet [generic] 12.5mg By Mouth Twice daily For CAD 12.5mg 09/07 Inactiv e 2023 03429 23175 0 Twice daily By Mouth False Loratadine 10 mg tablet [generic] 10 By Mouth Once daily As Needed For CHEMO 10 09/02 Inactiv e 2023 25455 96896 9 Once daily By Mouth False Loperamide 2 mg tablet [generic] 2mg By Mouth Every 6 hours As Needed For diarrhea 2mg 2023 Active 2023 12456 76193 6 Every 6 hours By Mouth False Spironolact one 25 mg tablet [generic] 25mg By Mouth Once daily For HTN 25mg 09/04 Inactiv e 2023 93251 27062 1 Once daily By Mouth False Lasix 40 mg tablet 40 By Mouth Once daily For htn 40 09/04 Inactiv e 2023 68472 81281 1 Once daily By Mouth False Ondansetron HCl 8 mg tablet [generic] 8mg By Mouth Every 8 hours For Encephalopath y 8mg 09/02 Inactiv e 2023 58428 17643 0 Every 8 hours By Mouth False Levofloxaci n 750 mg tablet [generic] 750 mg By Mouth Once daily For UTI 750 mg 09/02 Inactiv e 2023 86325 82133 6 Once daily By Mouth False Miralax 17 gram/dose oral powder 17grams By Mouth Once daily For constipation 17grams 09/03 Inactiv e 2023 08774 16122 0 Once daily By Mouth False Sulfamethox azole 800 mg-trimetho prim 160 mg tablet [generic] 09/02 Inactiv e 2023 43863 60537 1 Sulfamethox azole 800 mg-trimetho prim 160 mg tablet [generic] 1 tab By Mouth 3 times a week on sunday, sunday, sunday For UTI 1 tab 09/02 Inactiv e 2023 07622 76834 1 3 times a week By Mouth False Sulfamethox azole 800 mg-trimetho prim 160 mg tablet [generic] 09/02 Inactiv e 2023 72406 69973 1 Sulfamethox azole 800 mg-trimetho prim 160 mg tablet [generic] 1 tab By Mouth 3 times a week on sunday, sunday, sunday For UTI 1 tab 2023 00/00 /0000 Active 2023 27934 35062 1 3 times a week By Mouth False Polyethylen e glycol 3350 17 gram/dose oral powder [generic] 17 grams By Mouth Once daily For contispation 17 grams 09/04 Inactiv e 2023 69325 87498 4 Once daily By Mouth False Posaconazol e 100 mg tablet,zaki yed release [generic] 300mg By Mouth Once daily For Antifungal 300mg 09/18 Active 2023 55767 86911 0 Once daily By Mouth False Senna 8.6 mg tablet 2 tabs By Mouth Twice daily For contispation 2 tabs 2023 Active 2023 02966 35950 1 Twice daily By Mouth False ProSource No Carb 15 gram-60 kcal/30 mL oral liquid 30 ml By Mouth Once daily For Wound - Note total ml consumed 30 ml 2023 Active 2023 93137 45923 5 Once daily By Mouth False Levofloxaci n 500 mg tablet [generic] 500 mg By Mouth Once daily For Prophylaxis 500 mg 2023 Active 2023 75250 53560 8 Once daily By Mouth False Mirtazapine 7.5 mg tablet [generic] 7.5 mg By Mouth Once daily For Depression 7.5 mg 2023 Active 2023 02220 47559 5 Once daily By Mouth False Prochlorper azine maleate 10 mg tablet [generic] 09/02 Inactiv e 2023 04789 76030 1 Prochlorper azine maleate 10 mg tablet [generic] 1 tab By Mouth Every 6 hours as needed For nausea 1 tab 09/16 Active 2023 35059 62037 1 Every 6 hours as needed By Mouth False Ondansetron HCl 8 mg tablet [generic] 09/02 Inactiv e 2023 58349 11561 0 Ondansetron HCl 8 mg tablet [generic] 8mg By Mouth Every 8 hours For Nausea 8mg 2023 Active 2023 76943 90378 0 Every 8 hours By Mouth False Lorazepam 0.5 mg tablet [generic] 09/02 Inactiv e 2023 52712 53918 1 Lorazepam 0.5 mg tablet [generic] 1 tab By Mouth At bedtime as needed For anxiety 1 tab 09/02 Inactiv e 2023 01995 52914 1 At bedtime as needed By Mouth False Loratadine 10 mg tablet [generic] 09/02 Inactiv e 2023 24445 28109 9 Loratadine 10 mg tablet [generic] 10 By Mouth Once daily As Needed For when receiving chemotherapy 10 202300 Active 2023 79499 06455 9 Once daily By Mouth False Tramadol 50 mg tablet [generic] 09/02 Inactiv e 2023 90191 54539 0 Tramadol 50 mg tablet [generic] 1 tab By Mouth Every 6 hours as needed For moderate/mynor re pain 1 tab 09/02 Inactiv e 2023 52488 65459 0 Every 6 hours as needed By Mouth False Phenazopyri dine 200 mg tablet [generic] 09/02 Inactiv e 2023 83571 04333 1 Phenazopyri dine 200 mg tablet [generic] 1 tab By Mouth Three times daily as needed For bladder pain 1 tab 202300 Active 2023 00703 75019 1 Three times daily as needed By Mouth False Tylenol 325 mg tablet 09/02 Inactiv e 2023 50890 01071 0 Tylenol 325 mg tablet 2 tabs By Mouth Every 4 hours as needed For DO NOT EXCEED 3000 MG APAP/24 Hours For mild Pain 2 tabs 202300 / Active 2023 81408 78584 0 Every 4 hours as needed By Mouth False Metformin 1,000 mg tablet [generic] 09/02 Inactiv e 2023 45398 21919 0 Metformin 1,000 mg tablet [generic] 1 tab By Mouth Twice daily with meals For DM2 1 tab 2023 Active 2023 09294 66405 0 Twice daily By Mouth False Pantoprazol e 40 mg tablet,zaki yed release [generic] 09/02 Inactiv e 2023 71233 97441 0 Pantoprazol e 40 mg tablet,zaki yed release [generic] 1 tab By Mouth Once daily For gerd 1 tab 2023 Active 2023 75105 62487 0 Once daily By Mouth False Tramadol 50 mg tablet [generic] 09/02 Inactiv e 2023 22691 91331 0 Tramadol 50 mg tablet [generic] 1 tab By Mouth Every 6 hours as needed For moderate/mynor re pain 1 tab 2023 Active 2023 98201 40998 0 Every 6 hours as needed By Mouth False Lorazepam 0.5 mg tablet [generic] 09/02 Inactiv e 2023 60753 38140 1 Lorazepam 0.5 mg tablet [generic] 1 tab By Mouth At bedtime as needed For anxiety 1 tab 2023 Active 2023 72609 35510 1 At bedtime as needed By Mouth False Polyethylen e glycol 3350 17 gram/dose oral powder [generic] 17 grams By Mouth Daily as needed PRN For order changed to PRN daily forcontispati on 17 grams 2023 Active 2023 41863 72150 4 Daily as needed By Mouth False Spironolact one 25 mg tablet [generic] 12.5 mg By Mouth Once daily For ESSENTIAL (PRIMARY) HYPERTENSION 12.5 mg 2023 Active 2023 32963 27642 1 Once daily By Mouth I10. False Furosemide 20 mg tablet [generic] 20 mg By Mouth Once daily For UNSPECIFIED SYSTOLIC (CONGESTIVE) HEART FAILURE 20 mg 2023 Active 2023 85026 66481 0 Once daily By Mouth I50.20 False Carvedilol 12.5 mg tablet [generic] 09/07 Inactiv e 2023 76115 42598 0 Carvedilol 12.5 mg tablet [generic] 12.5mg By Mouth Twice daily For CAD hold for systolic b/p less than 100 12.5mg 202300 0000 Active 2023 12029 41020 0 Twice daily By Mouth False Losartan 25 mg tablet [generic] 09/07 Inactiv e 2023 83545 98125 9 Losartan 25 mg tablet [generic] 25mg By Mouth Once daily For HTN 25mg 202300 Active 2023 71995 02952 9 Once daily By Mouth False Unstageable with Drainage wwound bed Topical Once daily Site Coccyx Cleanse with dakins 25%pat dry, apply SANTYL, cover with border gauze For wound care wwound bed 2023 Active 2023 Once daily Topica l False VITAL SIGNS Date Time Diastolic blood pressure Systolic blood pressure Body height Body weight Temperature SpO2 Blood Sugar Pulse Respirations 63108 206 34466 1 64.00 mm[Hg] - Sitting 109.00 mm[Hg] - Sitting 98.70 Tympanic 90.00 % 64.00/ min 16.00/min 206 00576 0 178.60 NI 15233 206 90347 6 63 NI 206 14133 4 72.00 mm[Hg] - Sitting 121.00 mm[Hg] - Sitting 100.40 Forehead Scan 92.00 % 60.00/ min 18.00/min 206 29664 8 72.00 mm[Hg] - Sitting 121.00 mm[Hg] - Sitting 100.40 Tympanic 206 33599 9 60.00/ min 18.00/min 206 84965 5 148.00 mg/dL 207 47730 7 63.00 mm[Hg] - Sitting 122.00 mm[Hg] - Sitting 100.40 Tympanic 60.00/ min 18.00/min 207 02762 7 55.00 mm[Hg] - Sitting 104.00 mm[Hg] - Sitting 98.40 Forehead Scan 96.00 % 66.00/ min 18.00/min 32255 207 26376 5 120.00 mg/dL 91736 207 92827 6 101.00 mg/dL 26070 207 65658 8 63.00 mm[Hg] - Sitting 122.00 mm[Hg] - Sitting 43831 207 38900 7 134.00 mg/dL 85958 207 58556 9 134.00 mg/dL 86179 207 05083 0 127.00 mg/dL 10179 207 94579 7 127.00 mg/dL 73267 207 80503 9 122.00 mg/dL 60016 208 53182 9 62.00 mm[Hg] - Sitting 106.00 mm[Hg] - Sitting 98.60 Tympanic 66.00/ min 18.00/min 29370 208 58942 3 117.00 mg/dL 08798 208 60272 2 155.00 mg/dL 75162 208 66248 6 98.60 Tympanic 13568 208 75003 1 123.00 mg/dL 51551 208 76572 2 123.00 mg/dL 92093 208 89987 4 62.00 mm[Hg] - Sitting 106.00 mm[Hg] - Sitting 74582 208 73672 7 123.00 mg/dL 16226 208 28536 1 123.00 mg/dL 99484 208 68771 7 136.00 mg/dL 35157 209 51774 0 60.00 mm[Hg] - Sitting 113.00 mm[Hg] - Sitting 98.50 Forehead Scan 98.00 % 61.00/ min 16.00/min 75135 209 05312 7 114.00 mg/dL 21156 209 77371 7 111.00 mg/dL 04092 209 71869 0 98.00 Tympanic 68214 209 33579 2 68.00 mm[Hg] - Sitting 118.00 mm[Hg] - Sitting 52478 209 82482 5 156.00 mg/dL 62023 209 29056 4 156.00 mg/dL 00116 209 69491 5 132.00 mg/dL 84822 209 57135 4 132.00 mg/dL 02794 209 86083 0 136.00 mg/dL 80705 210 24139 0 52.00 mm[Hg] - Sitting 119.00 mm[Hg] - Sitting 98.40 Forehead Scan 96.00 % 57.00/ min 18.00/min 93720 210 00277 9 107.00 mg/dL 04042 210 52245 7 108.00 mg/dL 85205 210 04714 8 97.00 Tympanic 63852 210 40382 2 126.00 mg/dL 64068 210 79030 0 126.00 mg/dL 23502 210 77390 9 126.00 mg/dL 47084 210 64260 2 154.00 mg/dL 76025 211 21669 0 53.00 mm[Hg] - Lying Down 104.00 mm[Hg] - Lying Down 98.90 Tympanic 93.00 % 60.00/ min 18.00/min 13215 211 68489 0 62.00 mm[Hg] - Sitting 72.00 mm[Hg] - Sitting 98.30 Tympanic 96.00 % 62.00/ min 18.00/min 53840 211 69830 9 136.00 mg/dL 75060 211 49591 8 131.00 mg/dL 78551 211 61016 3 118.00 mg/dL 49567 211 70168 9 130.00 mg/dL 52078 212 59097 7 46.00 mm[Hg] - Sitting 101.00 mm[Hg] - Sitting 98.50 Tympanic 96.00 % 62.00/ min 20.00/min 74726 212 44853 1 110.00 mg/dL 19847 212 89073 8 110.00 mg/dL 34171 212 13173 8 152.00 mg/dL 84547 212 01636 0 120.00 mg/dL 90246 213 05319 9 123.00 mg/dL 66583 213 58886 9 123.00 mg/dL 76457 213 55414 5 62256 213 92327 2 14252 213 27209 8 36287 213 86305 8 63843 213 80880 5 134.00 mg/dL 28665 214 70813 5 50.00 mm[Hg] - Sitting 108.00 mm[Hg] - Sitting 98.20 Tympanic 97.00 % 60.00/ min 20.00/min 19351 214 81498 0 53.00 mm[Hg] - Sitting 104.00 mm[Hg] - Sitting 97.80 Tympanic 97.00 % 61.00/ min 18.00/min 45149 214 40114 4 122.00 mg/dL 67113 214 71506 2 122.00 mg/dL 40094 214 12385 7 142.00 mg/dL 24833 214 41014 4 142.00 mg/dL 92562 214 85628 7 115.00 mg/dL 46387 214 99680 9 115.00 mg/dL 94946 214 60693 1 121.00 mg/dL 61963 215 91744 5 97.80 Forehead Scan 98.00 % 60.00/ min 18.00/min 41141 215 23386 6 46.00 mm[Hg] - Lying Down 85.00 mm[Hg] - Lying Down 02824 215 78878 5 130.00 mg/dL 23755 215 76720 8 130.00 mg/dL 72445 215 99281 5 130.00 mg/dL 07853 215 72170 2 117.00 mg/dL 23299 215 69685 3 138.00 mg/dL 62908 216 56109 1 62.00 mm[Hg] - Lying Down 90.00 mm[Hg] - Lying Down 45310 216 97471 3 94.00 mg/dL 89168 216 38572 1 36.00 mm[Hg] - Sitting 80.00 mm[Hg] - Sitting 29108 216 48811 9 28275 216 12689 1 46406 216 13979 5 77049 216 01581 0 27501 216 18550 3 Immunizations Vaccine Date Status Influenza 08/29/2024 Completed (PCV13)Pneumococcal 08/29/2024 Completed
--- OUTSIDE RECORDS SUMMARY | 2024-09-26 23:49 | External Medical Summary | Continuity Of Care Document ---
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 unit/0.1 mL intradermal injection solution [Tuberculin PPD] 0.1mL Intradermal 1 time For PPD 2nd Step Give 2nd Step PPD Day 1 and Read results Day 3 (schedule 7 days after 1st READ) 0.1mL 09/10 Inactiv e 2023 63062 44862 0 1 time Intrad ermal False Tylenol 325 mg tablet 2 tabs By Mouth Every 4 hours as needed For Pain DO NOT EXCEED 3000 MG APAP/24 Hours 2 tabs 09/02 Inactiv e 2023 46964 32477 0 Every 4 hours as needed By Mouth False Tylenol 325 mg tablet 2 tabs By Mouth Every 4 hours as needed For Fever >100 DO NOT EXCEED 3000 MG APAP/24 Hours 2 tabs 2023 00/00 /0000 Active 2023 70850 18765 0 Every 4 hours as needed By Mouth False Dulcolax (bisacodyl) 10 mg rectal suppository One Suppository per rectum PRN if Milk of Magnisia ineffective. Give on day 5 of no BM 1 sup 2023 Active 2023 84919 02213 1 Daily as needed Rectal False Fleet Enema 19 gram-7 gram/118 mL Administer per rectum PRN one time if dulcolax suppository not effective. Give on day 6 of no BM 1 2023 Active 2023 45810 43115 6 Daily as needed Rectal False Dextrose 50 % in water (D50W) intravenous solution [generic] Dextrose 50% jose manuel 20-50 ml (slow push) Intravenous if Glucagon not effective after 15 minutes. CALL 911 for ED Evaluation. 50% jose manuel 2023 Active 2023 13549 32642 9 Intrav enous False Glucagon (HCl) Emergency Kit 1 mg solution for injection Administer Glucagon 1 mg Intramuscular if 15 minutes after GLucose Gel is administered Glucose remains less than 70 1 mg 2023 Active 2023 23193 99755 2 Intram uscula r False Glucose Gel 40 % oral gel [Dextrose] PRN If resident is unable to swallow (with or without symptoms) and Glucose results less than 70 give GLucose 40% Gel 1 tube orally - Recheck Glucose 15 minutes after administratio n. 1 tube 2023 Active 2023 76134 02930 8 By Mouth False Santyl 250 unit/gram topical ointment dose Topical Once daily to wound bed daily with wound care For Unstageable Pressure injury dose 2023 Active 2023 02600 01200 0 Once daily Topica l False Fluconazole 200 mg tablet [generic] 1 tab By Mouth Once daily For Yeast infection 1 tab 09/01 Inactiv e 2023 92668 27933 3 Once daily By Mouth False Phenazopyri dine 200 mg tablet [generic] 1 tab By Mouth Three times daily as needed For pain 1 tab 09/02 Inactiv e 2023 03197 26517 1 Three times daily as needed By Mouth False Aspirin 81 mg tablet,zaki yed release [generic] 1 tab By Mouth At bedtime For CAD 1 tab 2023 Active 2023 78390 25649 9 At bedtime By Mouth False BD AutoShield Duo Pen Needle 30 gauge x 3/16in 1 4 times a day subcutaneous 4 times a day change needle wqith every use of insulin For Type 2 diabetes Mellitus 1 2023 Active 2023 21521 94951 5 4 times a day Subcut aneous False Albuterol sulfate HFA 90 mcg/actuati on aerosol inhaler [generic] 2 puff Inhalation Every 6 hours as needed For SOB or wheezing 2 puff 2023 Active 2023 20360 40021 2 Every 6 hours as needed Inhala tion False Tramadol 50 mg tablet [generic] 1 tab By Mouth Every 6 hours as needed For pain 1 tab 09/02 Inactiv e 2023 80280 10415 0 Every 6 hours as needed By Mouth False Docusate sodium 100 mg tablet [generic] 1 tab Daily as needed For constipation 1 tab 2023 Active 2023 45798 91390 1 Daily as needed By Mouth False Senna Laxative 8.6 mg tablet 1 tab By Mouth Daily as needed For constipation 1 tab 2023 Active 2023 07545 71766 0 Daily as needed By Mouth False Potassium chloride ER 20 mEq tablet,exte nded release [generic] 1 tab By Mouth Twice daily For hypokalemia 1 tab 2023 Active 2023 56088 08089 1 Twice daily By Mouth False Acyclovir 400 mg tablet [generic] 1 tab By Mouth Twice daily For preventative B-cell lymphoma 1 tab 2023 Active 2023 31521 54721 1 Twice daily By Mouth False Pantoprazol e 40 mg tablet,zaki yed release [generic] 1 tab By Mouth Once daily For gerd 1 tab 09/02 Inactiv e 2023 59910 89831 0 Once daily By Mouth False Metformin 1,000 mg tablet [generic] 1 tab By Mouth Twice daily For DM2 1 tab 09/02 Inactiv e 2023 83083 56123 0 Twice daily By Mouth False Rosuvastati n 20 mg tablet [generic] 1 tab By Mouth At bedtime For hyperlipdemia 1 tab 2023 Active 2023 29323 74254 0 At bedtime By Mouth False Polyethylen e glycol 3350 (bulk) powder [generic] 17 g By Mouth Daily as needed For constipation 17 g 2023 Active 2023 70680 73061 1 Daily as needed By Mouth False Prochlorper azine maleate 10 mg tablet [generic] 1 tab By Mouth Every 6 hours as needed For nausea 1 tab 09/02 Inactiv e 2023 04738 16928 1 Every 6 hours as needed By Mouth False Bisacodyl 5 mg tablet,zaki yed release [generic] 1 tab By Mouth Daily as needed For constipation 1 tab 2023 Active 2023 41737 07561 1 Daily as needed By Mouth False Lorazepam 0.5 mg tablet [generic] 1 tab By Mouth At bedtime as needed For anxiety 1 tab 09/02 Inactiv e 2023 53013 05934 1 At bedtime as needed By Mouth False Insulin glargine (U-300) conc. 300 unit/mL (3 mL) subcutaneou s pen [generic] 40 units Subcutaneous At bedtime For DM2 40 units 09/02 Inactiv e 2023 82307 27953 2 At bedtime Subcut aneous False Jardiance 10 mg tablet 1 tab By Mouth Once daily For DM2 1 tab 2023 Active 2023 23962 08799 7 Once daily By Mouth False Insulin [...] time order For diabetes 2023 Active 2023 93998 25291 5 3 times a day Subcut aneous False Sulfamethox azole 800 mg-trimetho prim 160 mg tablet [generic] 1 tab By Mouth 3 times a week on sunday, sunday, sunday For UTI 1 tab 09/02 Inactiv e 2023 20962 84343 1 3 times a week By Mouth False Gemtesa 75 mg tablet 75mg By Mouth Once daily For urinary management 75mg 2023 Active 2023 52471 24545 7 Once daily By Mouth False Losartan 25 mg tablet [generic] 25mg By Mouth Once daily For HTN 25mg 09/07 Inactiv e 2023 08255 67164 9 Once daily By Mouth False Ozempic 1 mg/dose (4 mg/3 mL) subcutaneou s pen injector 1mg Subcutaneous Every week For diabetes 1mg 09/04 Inactiv e 2023 19921 35807 3 Every week Subcut aneous False Carvedilol 12.5 mg tablet [generic] 12.5mg By Mouth Twice daily For CAD 12.5mg 09/07 Inactiv e 2023 85108 30270 0 Twice daily By Mouth False Loratadine 10 mg tablet [generic] 10 By Mouth Once daily As Needed For CHEMO 10 09/02 Inactiv e 2023 44508 24199 9 Once daily By Mouth False Loperamide 2 mg tablet [generic] 2mg By Mouth Every 6 hours As Needed For diarrhea 2mg 2023 Active 2023 26449 97853 6 Every 6 hours By Mouth False Spironolact one 25 mg tablet [generic] 25mg By Mouth Once daily For HTN 25mg 09/04 Inactiv e 2023 41167 08755 1 Once daily By Mouth False Lasix 40 mg tablet 40 By Mouth Once daily For htn 40 09/04 Inactiv e 2023 48418 47706 1 Once daily By Mouth False Ondansetron HCl 8 mg tablet [generic] 8mg By Mouth Every 8 hours For Encephalopath y 8mg 09/02 Inactiv e 2023 36638 42677 0 Every 8 hours By Mouth False Levofloxaci n 750 mg tablet [generic] 750 mg By Mouth Once daily For UTI 750 mg 09/02 Inactiv e 2023 40443 98424 6 Once daily By Mouth False Miralax 17 gram/dose oral powder 17grams By Mouth Once daily For constipation 17grams 09/03 Inactiv e 2023 43773 92887 0 Once daily By Mouth False Sulfamethox azole 800 mg-trimetho prim 160 mg tablet [generic] 09/02 Inactiv e 2023 43813 08567 1 Sulfamethox azole 800 mg-trimetho prim 160 mg tablet [generic] 1 tab By Mouth 3 times a week on sunday, sunday, sunday For UTI 1 tab 09/02 Inactiv e 2023 11047 75189 1 3 times a week By Mouth False Sulfamethox azole 800 mg-trimetho prim 160 mg tablet [generic] 09/02 Inactiv e 2023 12010 21491 1 Sulfamethox azole 800 mg-trimetho prim 160 mg tablet [generic] 1 tab By Mouth 3 times a week on sunday, sunday, sunday For UTI 1 tab 2023 00/00 /0000 Active 2023 90282 75457 1 3 times a week By Mouth False Polyethylen e glycol 3350 17 gram/dose oral powder [generic] 17 grams By Mouth Once daily For contispation 17 grams 09/04 Inactiv e 2023 67587 58250 4 Once daily By Mouth False Posaconazol e 100 mg tablet,zaki yed release [generic] 300mg By Mouth Once daily For Antifungal 300mg 09/18 Active 2023 25006 47900 0 Once daily By Mouth False Senna 8.6 mg tablet 2 tabs By Mouth Twice daily For contispation 2 tabs 2023 Active 2023 72556 30958 1 Twice daily By Mouth False ProSource No Carb 15 gram-60 kcal/30 mL oral liquid 30 ml By Mouth Once daily For Wound - Note total ml consumed 30 ml 2023 Active 2023 02472 55874 5 Once daily By Mouth False Levofloxaci n 500 mg tablet [generic] 500 mg By Mouth Once daily For Prophylaxis 500 mg 2023 Active 2023 84242 41455 8 Once daily By Mouth False Mirtazapine 7.5 mg tablet [generic] 7.5 mg By Mouth Once daily For Depression 7.5 mg 2023 Active 2023 59182 61048 5 Once daily By Mouth False Prochlorper azine maleate 10 mg tablet [generic] 09/02 Inactiv e 2023 83543 93301 1 Prochlorper azine maleate 10 mg tablet [generic] 1 tab By Mouth Every 6 hours as needed For nausea 1 tab 09/16 Active 2023 03984 88372 1 Every 6 hours as needed By Mouth False Ondansetron HCl 8 mg tablet [generic] 09/02 Inactiv e 2023 05759 38384 0 Ondansetron HCl 8 mg tablet [generic] 8mg By Mouth Every 8 hours For Nausea 8mg 2023 Active 2023 93249 80950 0 Every 8 hours By Mouth False Lorazepam 0.5 mg tablet [generic] 09/02 Inactiv e 2023 15303 07303 1 Lorazepam 0.5 mg tablet [generic] 1 tab By Mouth At bedtime as needed For anxiety 1 tab 09/02 Inactiv e 2023 13980 21731 1 At bedtime as needed By Mouth False Loratadine 10 mg tablet [generic] 09/02 Inactiv e 2023 42298 51991 9 Loratadine 10 mg tablet [generic] 10 By Mouth Once daily As Needed For when receiving chemotherapy 10 202300 Active 2023 49665 77025 9 Once daily By Mouth False Tramadol 50 mg tablet [generic] 09/02 Inactiv e 2023 76460 00074 0 Tramadol 50 mg tablet [generic] 1 tab By Mouth Every 6 hours as needed For moderate/mynor re pain 1 tab 09/02 Inactiv e 2023 49418 73749 0 Every 6 hours as needed By Mouth False Phenazopyri dine 200 mg tablet [generic] 09/02 Inactiv e 2023 35943 24192 1 Phenazopyri dine 200 mg tablet [generic] 1 tab By Mouth Three times daily as needed For bladder pain 1 tab 202300 Active 2023 84519 95743 1 Three times daily as needed By Mouth False Tylenol 325 mg tablet 09/02 Inactiv e 2023 86130 22673 0 Tylenol 325 mg tablet 2 tabs By Mouth Every 4 hours as needed For DO NOT EXCEED 3000 MG APAP/24 Hours For mild Pain 2 tabs 202300 / Active 2023 41974 36746 0 Every 4 hours as needed By Mouth False Metformin 1,000 mg tablet [generic] 09/02 Inactiv e 2023 65255 92121 0 Metformin 1,000 mg tablet [generic] 1 tab By Mouth Twice daily with meals For DM2 1 tab 2023 Active 2023 71625 85127 0 Twice daily By Mouth False Pantoprazol e 40 mg tablet,zaki yed release [generic] 09/02 Inactiv e 2023 90764 70124 0 Pantoprazol e 40 mg tablet,zaki yed release [generic] 1 tab By Mouth Once daily For gerd 1 tab 2023 Active 2023 04629 27334 0 Once daily By Mouth False Tramadol 50 mg tablet [generic] 09/02 Inactiv e 2023 16546 28696 0 Tramadol 50 mg tablet [generic] 1 tab By Mouth Every 6 hours as needed For moderate/mynor re pain 1 tab 2023 Active 2023 81786 20208 0 Every 6 hours as needed By Mouth False Lorazepam 0.5 mg tablet [generic] 09/02 Inactiv e 2023 05555 36099 1 Lorazepam 0.5 mg tablet [generic] 1 tab By Mouth At bedtime as needed For anxiety 1 tab 2023 Active 2023 65113 45131 1 At bedtime as needed By Mouth False Polyethylen e glycol 3350 17 gram/dose oral powder [generic] 17 grams By Mouth Daily as needed PRN For order changed to PRN daily forcontispati on 17 grams 2023 Active 2023 87623 10476 4 Daily as needed By Mouth False Spironolact one 25 mg tablet [generic] 12.5 mg By Mouth Once daily For ESSENTIAL (PRIMARY) HYPERTENSION 12.5 mg 2023 Active 2023 66965 63016 1 Once daily By Mouth I10. False Furosemide 20 mg tablet [generic] 20 mg By Mouth Once daily For UNSPECIFIED SYSTOLIC (CONGESTIVE) HEART FAILURE 20 mg 2023 Active 2023 91906 34485 0 Once daily By Mouth I50.20 False Carvedilol 12.5 mg tablet [generic] 09/07 Inactiv e 2023 15262 88182 0 Carvedilol 12.5 mg tablet [generic] 12.5mg By Mouth Twice daily For CAD hold for systolic b/p less than 100 12.5mg 202300 0000 Active 2023 25669 89686 0 Twice daily By Mouth False Losartan 25 mg tablet [generic] 09/07 Inactiv e 2023 00831 98140 9 Losartan 25 mg tablet [generic] 25mg By Mouth Once daily For HTN 25mg 202300 Active 2023 09307 30228 9 Once daily By Mouth False Unstageable with Drainage wwound bed Topical Once daily Site Coccyx Cleanse with dakins 25%pat dry, apply SANTYL, cover with border gauze For wound care wwound bed 2023 Active 2023 Once daily Topica l False VITAL SIGNS Date Time Diastolic blood pressure Systolic blood pressure Body height Body weight Temperature SpO2 Blood Sugar Pulse Respirations 17508 206 00741 1 64.00 mm[Hg] - Sitting 109.00 mm[Hg] - Sitting 98.70 Tympanic 90.00 % 64.00/ min 16.00/min 206 41891 0 178.60 NI 87843 206 46005 6 63 NI 206 14952 4 72.00 mm[Hg] - Sitting 121.00 mm[Hg] - Sitting 100.40 Forehead Scan 92.00 % 60.00/ min 18.00/min 206 62695 8 72.00 mm[Hg] - Sitting 121.00 mm[Hg] - Sitting 100.40 Tympanic 206 35021 9 60.00/ min 18.00/min 206 97133 5 148.00 mg/dL 207 19189 7 63.00 mm[Hg] - Sitting 122.00 mm[Hg] - Sitting 100.40 Tympanic 60.00/ min 18.00/min 207 90852 7 55.00 mm[Hg] - Sitting 104.00 mm[Hg] - Sitting 98.40 Forehead Scan 96.00 % 66.00/ min 18.00/min 52095 207 03936 5 120.00 mg/dL 78499 207 68194 6 101.00 mg/dL 12587 207 19984 8 63.00 mm[Hg] - Sitting 122.00 mm[Hg] - Sitting 58474 207 83453 7 134.00 mg/dL 94405 207 52414 9 134.00 mg/dL 28539 207 68362 0 127.00 mg/dL 52747 207 55630 7 127.00 mg/dL 29326 207 93305 9 122.00 mg/dL 46285 208 96972 9 62.00 mm[Hg] - Sitting 106.00 mm[Hg] - Sitting 98.60 Tympanic 66.00/ min 18.00/min 41652 208 97431 3 117.00 mg/dL 36932 208 18769 2 155.00 mg/dL 52542 208 16306 6 98.60 Tympanic 13506 208 72888 1 123.00 mg/dL 82819 208 35576 2 123.00 mg/dL 98420 208 56711 4 62.00 mm[Hg] - Sitting 106.00 mm[Hg] - Sitting 20565 208 67935 7 123.00 mg/dL 26141 208 54147 1 123.00 mg/dL 67613 208 73678 7 136.00 mg/dL 78737 209 24473 0 60.00 mm[Hg] - Sitting 113.00 mm[Hg] - Sitting 98.50 Forehead Scan 98.00 % 61.00/ min 16.00/min 77369 209 47284 7 114.00 mg/dL 92631 209 37829 7 111.00 mg/dL 88570 209 69836 0 98.00 Tympanic 03038 209 24862 2 68.00 mm[Hg] - Sitting 118.00 mm[Hg] - Sitting 61551 209 88448 5 156.00 mg/dL 49221 209 49762 4 156.00 mg/dL 38013 209 87684 5 132.00 mg/dL 47752 209 85341 4 132.00 mg/dL 20710 209 96814 0 136.00 mg/dL 72805 210 29729 0 52.00 mm[Hg] - Sitting 119.00 mm[Hg] - Sitting 98.40 Forehead Scan 96.00 % 57.00/ min 18.00/min 39306 210 61382 9 107.00 mg/dL 92229 210 31479 7 108.00 mg/dL 62175 210 62099 8 97.00 Tympanic 18181 210 29595 2 126.00 mg/dL 95369 210 43766 0 126.00 mg/dL 21219 210 58397 9 126.00 mg/dL 14605 210 54341 2 154.00 mg/dL 36171 211 08983 0 53.00 mm[Hg] - Lying Down 104.00 mm[Hg] - Lying Down 98.90 Tympanic 93.00 % 60.00/ min 18.00/min 91815 211 15794 0 62.00 mm[Hg] - Sitting 72.00 mm[Hg] - Sitting 98.30 Tympanic 96.00 % 62.00/ min 18.00/min 04283 211 54512 9 136.00 mg/dL 90063 211 32757 8 131.00 mg/dL 25562 211 71235 3 118.00 mg/dL 34493 211 82769 9 130.00 mg/dL 67239 212 83137 7 46.00 mm[Hg] - Sitting 101.00 mm[Hg] - Sitting 98.50 Tympanic 96.00 % 62.00/ min 20.00/min 27832 212 45898 1 110.00 mg/dL 56221 212 49382 8 110.00 mg/dL 37429 212 82848 8 152.00 mg/dL 40972 212 62825 0 120.00 mg/dL 82287 213 75398 9 123.00 mg/dL 65043 213 00503 9 123.00 mg/dL 52110 213 03534 5 04280 213 43373 2 38222 213 15440 8 90392 213 44895 8 26773 213 09873 5 134.00 mg/dL 34629 214 81294 5 50.00 mm[Hg] - Sitting 108.00 mm[Hg] - Sitting 98.20 Tympanic 97.00 % 60.00/ min 20.00/min 65677 214 03788 0 53.00 mm[Hg] - Sitting 104.00 mm[Hg] - Sitting 97.80 Tympanic 97.00 % 61.00/ min 18.00/min 39202 214 22288 4 122.00 mg/dL 44302 214 45245 2 122.00 mg/dL 58034 214 11486 7 142.00 mg/dL 88045 214 44474 4 142.00 mg/dL 78328 214 47443 7 115.00 mg/dL 55372 214 82579 9 115.00 mg/dL 63762 214 32391 1 121.00 mg/dL 82172 215 66242 5 97.80 Forehead Scan 98.00 % 60.00/ min 18.00/min 93703 215 24804 6 46.00 mm[Hg] - Lying Down 85.00 mm[Hg] - Lying Down 14738 215 01159 5 130.00 mg/dL 83725 215 63552 8 130.00 mg/dL 98344 215 48875 5 130.00 mg/dL 83818 215 50625 2 117.00 mg/dL 44572 215 09511 3 138.00 mg/dL 37874 216 75424 1 62.00 mm[Hg] - Lying Down 90.00 mm[Hg] - Lying Down 52066 216 00335 3 94.00 mg/dL 38886 216 61255 1 36.00 mm[Hg] - Sitting 80.00 mm[Hg] - Sitting 70901 216 66286 9 93990 216 38467 1 60442 216 15289 5 22550 216 37224 0 66832 216 88298 3 Immunizations Vaccine Date Status Influenza 08/29/2024 Completed (PCV13)Pneumococcal 08/29/2024 Completed
--- OUTSIDE RECORDS SUMMARY | 2024-09-26 23:49 | External Medical Summary | Continuity Of Care Document ---
Author Name Unknown Address [address] [address] Organization [facility] () Care Team Providers Care Psych Np Name Role Phone DO Perdomo Amy Primary Care Provider [phone] Allergies Allergy Reaction Start Date End Date [...] 3 0.1 mL 09/01 Inactiv e 2023 25358 31363 0 1 time Intrad ermal False Tubersol 5 tub. unit/0.1 mL intradermal injection solution [Tuberculin PPD] 0.1mL Intradermal 1 time For PPD 2nd Step Give 2nd Step PPD Day 1 and Read results Day 3 (schedule 7 days after 1st READ) 0.1mL 09/10 Inactiv e 2023 75477 01742 0 1 time Intrad ermal False Tylenol 325 mg tablet 2 tabs By Mouth Every 4 hours as needed For Pain DO NOT EXCEED 3000 MG APAP/24 Hours 2 tabs 09/02 Inactiv e 2023 12409 03298 0 Every 4 hours as needed By Mouth False Tylenol 325 mg tablet 2 tabs By Mouth Every 4 hours as needed For Fever >100 DO NOT EXCEED 3000 MG APAP/24 Hours 2 tabs 2023 00/00 /0000 Active 2023 66098 68728 0 Every 4 hours as needed By Mouth False Dulcolax (bisacodyl) 10 mg rectal suppository One Suppository per rectum PRN if Milk of Magnisia ineffective. Give on day 5 of no BM 1 sup 2023 Active 2023 03631 86988 1 Daily as needed Rectal False Fleet Enema 19 gram-7 gram/118 mL Administer per rectum PRN one time if dulcolax suppository not effective. Give on day 6 of no BM 1 2023 Active 2023 90262 38806 6 Daily as needed Rectal False Dextrose 50 % in water (D50W) intravenous solution [generic] Dextrose 50% jose manuel 20-50 ml (slow push) Intravenous if Glucagon not effective after 15 minutes. CALL 911 for ED Evaluation. 50% jose manuel 2023 Active 2023 75753 11503 9 Intrav enous False Glucagon (HCl) Emergency Kit 1 mg solution for injection Administer Glucagon 1 mg Intramuscular if 15 minutes after GLucose Gel is administered Glucose remains less than 70 1 mg 2023 Active 2023 24408 37162 2 Intram uscula r False Glucose Gel 40 % oral gel [Dextrose] PRN If resident is unable to swallow (with or without symptoms) and Glucose results less than 70 give GLucose 40% Gel 1 tube orally - Recheck Glucose 15 minutes after administratio n. 1 tube 2023 Active 2023 98327 12911 8 By Mouth False Santyl 250 unit/gram topical ointment dose Topical Once daily to wound bed daily with wound care For Unstageable Pressure injury dose 2023 Active 2023 18081 86824 0 Once daily Topica l False Fluconazole 200 mg tablet [generic] 1 tab By Mouth Once daily For Yeast infection 1 tab 09/01 Inactiv e 2023 14020 99463 3 Once daily By Mouth False Phenazopyri dine 200 mg tablet [generic] 1 tab By Mouth Three times daily as needed For pain 1 tab 09/02 Inactiv e 2023 44417 20621 1 Three times daily as needed By Mouth False Aspirin 81 mg tablet,zaki yed release [generic] 1 tab By Mouth At bedtime For CAD 1 tab 2023 Active 2023 95483 94900 9 At bedtime By Mouth False BD AutoShield Duo Pen Needle 30 gauge x 3/16in 1 4 times a day subcutaneous 4 times a day change needle wqith every use of insulin For Type 2 diabetes Mellitus 1 2023 Active 2023 09140 68712 5 4 times a day Subcut aneous False Albuterol sulfate HFA 90 mcg/actuati on aerosol inhaler [generic] 2 puff Inhalation Every 6 hours as needed For SOB or wheezing 2 puff 2023 Active 2023 82377 30400 2 Every 6 hours as needed Inhala tion False Tramadol 50 mg tablet [generic] 1 tab By Mouth Every 6 hours as needed For pain 1 tab 09/02 Inactiv e 2023 64058 81467 0 Every 6 hours as needed By Mouth False Docusate sodium 100 mg tablet [generic] 1 tab Daily as needed For constipation 1 tab 2023 Active 2023 23089 92713 1 Daily as needed By Mouth False Senna Laxative 8.6 mg tablet 1 tab By Mouth Daily as needed For constipation 1 tab 2023 Active 2023 34899 66679 0 Daily as needed By Mouth False Potassium chloride ER 20 mEq tablet,exte nded release [generic] 1 tab By Mouth Twice daily For hypokalemia 1 tab 2023 Active 2023 12461 90197 1 Twice daily By Mouth False Acyclovir 400 mg tablet [generic] 1 tab By Mouth Twice daily For preventative B-cell lymphoma 1 tab 2023 Active 2023 88749 24135 1 Twice daily By Mouth False Pantoprazol e 40 mg tablet,zaki yed release [generic] 1 tab By Mouth Once daily For gerd 1 tab 09/02 Inactiv e 2023 56120 66771 0 Once daily By Mouth False Metformin 1,000 mg tablet [generic] 1 tab By Mouth Twice daily For DM2 1 tab 09/02 Inactiv e 2023 98727 52724 0 Twice daily By Mouth False Rosuvastati n 20 mg tablet [generic] 1 tab By Mouth At bedtime For hyperlipdemia 1 tab 2023 Active 2023 08407 01336 0 At bedtime By Mouth False Polyethylen e glycol 3350 (bulk) powder [generic] 17 g By Mouth Daily as needed For constipation 17 g 2023 Active 2023 20640 49309 1 Daily as needed By Mouth False Prochlorper azine maleate 10 mg tablet [generic] 1 tab By Mouth Every 6 hours as needed For nausea 1 tab 09/02 Inactiv e 2023 93212 55291 1 Every 6 hours as needed By Mouth False Bisacodyl 5 mg tablet,zaki yed release [generic] 1 tab By Mouth Daily as needed For constipation 1 tab 2023 Active 2023 90481 65097 1 Daily as needed By Mouth False Lorazepam 0.5 mg tablet [generic] 1 tab By Mouth At bedtime as needed For anxiety 1 tab 09/02 Inactiv e 2023 36146 82154 1 At bedtime as needed By Mouth False Insulin glargine (U-300) conc. 300 unit/mL (3 mL) subcutaneou s pen [generic] 40 units Subcutaneous At bedtime For DM2 40 units 09/02 Inactiv e 2023 59004 17457 2 At bedtime Subcut aneous False Jardiance 10 mg tablet 1 tab By Mouth Once daily For DM2 1 tab 2023 Active 2023 14217 30463 7 Once daily By Mouth False Insulin [...] time order For diabetes 2023 Active 2023 12833 12459 5 3 times a day Subcut aneous False Sulfamethox azole 800 mg-trimetho prim 160 mg tablet [generic] 1 tab By Mouth 3 times a week on sunday, sunday, sunday For UTI 1 tab 09/02 Inactiv e 2023 76257 06367 1 3 times a week By Mouth False Gemtesa 75 mg tablet 75mg By Mouth Once daily For urinary management 75mg 2023 Active 2023 54223 98870 7 Once daily By Mouth False Losartan 25 mg tablet [generic] 25mg By Mouth Once daily For HTN 25mg 09/07 Inactiv e 2023 47796 02666 9 Once daily By Mouth False Ozempic 1 mg/dose (4 mg/3 mL) subcutaneou s pen injector 1mg Subcutaneous Every week For diabetes 1mg 09/04 Inactiv e 2023 02614 17553 3 Every week Subcut aneous False Carvedilol 12.5 mg tablet [generic] 12.5mg By Mouth Twice daily For CAD 12.5mg 09/07 Inactiv e 2023 47459 24041 0 Twice daily By Mouth False Loratadine 10 mg tablet [generic] 10 By Mouth Once daily As Needed For CHEMO 10 09/02 Inactiv e 2023 19954 95610 9 Once daily By Mouth False Loperamide 2 mg tablet [generic] 2mg By Mouth Every 6 hours As Needed For diarrhea 2mg 2023 Active 2023 93773 36919 6 Every 6 hours By Mouth False Spironolact one 25 mg tablet [generic] 25mg By Mouth Once daily For HTN 25mg 09/04 Inactiv e 2023 12776 14321 1 Once daily By Mouth False Lasix 40 mg tablet 40 By Mouth Once daily For htn 40 09/04 Inactiv e 2023 46634 33786 1 Once daily By Mouth False Ondansetron HCl 8 mg tablet [generic] 8mg By Mouth Every 8 hours For Encephalopath y 8mg 09/02 Inactiv e 2023 55162 96581 0 Every 8 hours By Mouth False Levofloxaci n 750 mg tablet [generic] 750 mg By Mouth Once daily For UTI 750 mg 09/02 Inactiv e 2023 37523 31084 6 Once daily By Mouth False Miralax 17 gram/dose oral powder 17grams By Mouth Once daily For constipation 17grams 09/03 Inactiv e 2023 98306 33819 0 Once daily By Mouth False Sulfamethox azole 800 mg-trimetho prim 160 mg tablet [generic] 09/02 Inactiv e 2023 55473 73926 1 Sulfamethox azole 800 mg-trimetho prim 160 mg tablet [generic] 1 tab By Mouth 3 times a week on sunday, sunday, sunday For UTI 1 tab 09/02 Inactiv e 2023 96847 73487 1 3 times a week By Mouth False Sulfamethox azole 800 mg-trimetho prim 160 mg tablet [generic] 09/02 Inactiv e 2023 27158 31903 1 Sulfamethox azole 800 mg-trimetho prim 160 mg tablet [generic] 1 tab By Mouth 3 times a week on sunday, sunday, sunday For UTI 1 tab 2023 00/00 /0000 Active 2023 37330 28965 1 3 times a week By Mouth False Polyethylen e glycol 3350 17 gram/dose oral powder [generic] 17 grams By Mouth Once daily For contispation 17 grams 09/04 Inactiv e 2023 26739 76533 4 Once daily By Mouth False Posaconazol e 100 mg tablet,zaki yed release [generic] 300mg By Mouth Once daily For Antifungal 300mg 09/18 Active 2023 61362 73218 0 Once daily By Mouth False Senna 8.6 mg tablet 2 tabs By Mouth Twice daily For contispation 2 tabs 2023 Active 2023 98524 29999 1 Twice daily By Mouth False ProSource No Carb 15 gram-60 kcal/30 mL oral liquid 30 ml By Mouth Once daily For Wound - Note total ml consumed 30 ml 2023 Active 2023 21093 39951 5 Once daily By Mouth False Levofloxaci n 500 mg tablet [generic] 500 mg By Mouth Once daily For Prophylaxis 500 mg 2023 Active 2023 32444 08374 8 Once daily By Mouth False Mirtazapine 7.5 mg tablet [generic] 7.5 mg By Mouth Once daily For Depression 7.5 mg 2023 Active 2023 98931 95196 5 Once daily By Mouth False Prochlorper azine maleate 10 mg tablet [generic] 09/02 Inactiv e 2023 53379 21035 1 Prochlorper azine maleate 10 mg tablet [generic] 1 tab By Mouth Every 6 hours as needed For nausea 1 tab 09/16 Active 2023 32191 85238 1 Every 6 hours as needed By Mouth False Ondansetron HCl 8 mg tablet [generic] 09/02 Inactiv e 2023 54555 46165 0 Ondansetron HCl 8 mg tablet [generic] 8mg By Mouth Every 8 hours For Nausea 8mg 2023 Active 2023 10513 42766 0 Every 8 hours By Mouth False Lorazepam 0.5 mg tablet [generic] 09/02 Inactiv e 2023 98123 53308 1 Lorazepam 0.5 mg tablet [generic] 1 tab By Mouth At bedtime as needed For anxiety 1 tab 09/02 Inactiv e 2023 74764 21345 1 At bedtime as needed By Mouth False Loratadine 10 mg tablet [generic] 09/02 Inactiv e 2023 40165 62261 9 Loratadine 10 mg tablet [generic] 10 By Mouth Once daily As Needed For when receiving chemotherapy 10 202300 Active 2023 67473 39412 9 Once daily By Mouth False Tramadol 50 mg tablet [generic] 09/02 Inactiv e 2023 65474 59472 0 Tramadol 50 mg tablet [generic] 1 tab By Mouth Every 6 hours as needed For moderate/mynor re pain 1 tab 09/02 Inactiv e 2023 05596 32330 0 Every 6 hours as needed By Mouth False Phenazopyri dine 200 mg tablet [generic] 09/02 Inactiv e 2023 70777 79642 1 Phenazopyri dine 200 mg tablet [generic] 1 tab By Mouth Three times daily as needed For bladder pain 1 tab 202300 Active 2023 68734 48898 1 Three times daily as needed By Mouth False Tylenol 325 mg tablet 09/02 Inactiv e 2023 83339 69954 0 Tylenol 325 mg tablet 2 tabs By Mouth Every 4 hours as needed For DO NOT EXCEED 3000 MG APAP/24 Hours For mild Pain 2 tabs 202300 / Active 2023 63511 42701 0 Every 4 hours as needed By Mouth False Metformin 1,000 mg tablet [generic] 09/02 Inactiv e 2023 29890 12234 0 Metformin 1,000 mg tablet [generic] 1 tab By Mouth Twice daily with meals For DM2 1 tab 2023 Active 2023 25278 63443 0 Twice daily By Mouth False Pantoprazol e 40 mg tablet,zaki yed release [generic] 09/02 Inactiv e 2023 40189 92386 0 Pantoprazol e 40 mg tablet,zaki yed release [generic] 1 tab By Mouth Once daily For gerd 1 tab 2023 Active 2023 81453 19881 0 Once daily By Mouth False Tramadol 50 mg tablet [generic] 09/02 Inactiv e 2023 16902 89746 0 Tramadol 50 mg tablet [generic] 1 tab By Mouth Every 6 hours as needed For moderate/mynor re pain 1 tab 2023 Active 2023 12528 41838 0 Every 6 hours as needed By Mouth False Lorazepam 0.5 mg tablet [generic] 09/02 Inactiv e 2023 69292 51218 1 Lorazepam 0.5 mg tablet [generic] 1 tab By Mouth At bedtime as needed For anxiety 1 tab 2023 Active 2023 16640 19120 1 At bedtime as needed By Mouth False Polyethylen e glycol 3350 17 gram/dose oral powder [generic] 17 grams By Mouth Daily as needed PRN For order changed to PRN daily forcontispati on 17 grams 2023 Active 2023 56100 01727 4 Daily as needed By Mouth False Spironolact one 25 mg tablet [generic] 12.5 mg By Mouth Once daily For ESSENTIAL (PRIMARY) HYPERTENSION 12.5 mg 2023 Active 2023 48976 42370 1 Once daily By Mouth I10. False Furosemide 20 mg tablet [generic] 20 mg By Mouth Once daily For UNSPECIFIED SYSTOLIC (CONGESTIVE) HEART FAILURE 20 mg 2023 Active 2023 57142 87772 0 Once daily By Mouth I50.20 False Carvedilol 12.5 mg tablet [generic] 09/07 Inactiv e 2023 80264 39326 0 Carvedilol 12.5 mg tablet [generic] 12.5mg By Mouth Twice daily For CAD hold for systolic b/p less than 100 12.5mg 202300 0000 Active 2023 36590 51568 0 Twice daily By Mouth False Losartan 25 mg tablet [generic] 09/07 Inactiv e 2023 21948 87991 9 Losartan 25 mg tablet [generic] 25mg By Mouth Once daily For HTN 25mg 202300 Active 2023 24996 18600 9 Once daily By Mouth False Unstageable with Drainage wwound bed Topical Once daily Site Coccyx Cleanse with dakins 25%pat dry, apply SANTYL, cover with border gauze For wound care wwound bed 2023 Active 2023 Once daily Topica l False VITAL SIGNS Date Time Diastolic blood pressure Systolic blood pressure Body height Body weight Temperature SpO2 Blood Sugar Pulse Respirations 70499 206 04441 1 64.00 mm[Hg] - Sitting 109.00 mm[Hg] - Sitting 98.70 Tympanic 90.00 % 64.00/ min 16.00/min 206 27068 0 178.60 NI 41828 206 52455 6 63 NI 206 38978 4 72.00 mm[Hg] - Sitting 121.00 mm[Hg] - Sitting 100.40 Forehead Scan 92.00 % 60.00/ min 18.00/min 206 57939 8 72.00 mm[Hg] - Sitting 121.00 mm[Hg] - Sitting 100.40 Tympanic 206 84894 9 60.00/ min 18.00/min 206 93211 5 148.00 mg/dL 207 28370 7 63.00 mm[Hg] - Sitting 122.00 mm[Hg] - Sitting 100.40 Tympanic 60.00/ min 18.00/min 207 40919 7 55.00 mm[Hg] - Sitting 104.00 mm[Hg] - Sitting 98.40 Forehead Scan 96.00 % 66.00/ min 18.00/min 49391 207 25526 5 120.00 mg/dL 92047 207 39559 6 101.00 mg/dL 82755 207 31262 8 63.00 mm[Hg] - Sitting 122.00 mm[Hg] - Sitting 24848 207 21890 7 134.00 mg/dL 92507 207 36914 9 134.00 mg/dL 45040 207 31782 0 127.00 mg/dL 16271 207 35979 7 127.00 mg/dL 33254 207 95524 9 122.00 mg/dL 76303 208 28125 9 62.00 mm[Hg] - Sitting 106.00 mm[Hg] - Sitting 98.60 Tympanic 66.00/ min 18.00/min 49535 208 62292 3 117.00 mg/dL 10111 208 61504 2 155.00 mg/dL 28445 208 26096 6 98.60 Tympanic 95300 208 76126 1 123.00 mg/dL 04811 208 65558 2 123.00 mg/dL 94435 208 08871 4 62.00 mm[Hg] - Sitting 106.00 mm[Hg] - Sitting 43099 208 24242 7 123.00 mg/dL 58271 208 09847 1 123.00 mg/dL 82890 208 12838 7 136.00 mg/dL 11604 209 54199 0 60.00 mm[Hg] - Sitting 113.00 mm[Hg] - Sitting 98.50 Forehead Scan 98.00 % 61.00/ min 16.00/min 32782 209 50568 7 114.00 mg/dL 52232 209 17307 7 111.00 mg/dL 74971 209 39611 0 98.00 Tympanic 82368 209 34601 2 68.00 mm[Hg] - Sitting 118.00 mm[Hg] - Sitting 47512 209 47568 5 156.00 mg/dL 47704 209 77462 4 156.00 mg/dL 20901 209 16884 5 132.00 mg/dL 85832 209 85421 4 132.00 mg/dL 00781 209 65332 0 136.00 mg/dL 33964 210 79110 0 52.00 mm[Hg] - Sitting 119.00 mm[Hg] - Sitting 98.40 Forehead Scan 96.00 % 57.00/ min 18.00/min 81476 210 07233 9 107.00 mg/dL 08601 210 21803 7 108.00 mg/dL 40075 210 10990 8 97.00 Tympanic 85395 210 37575 2 126.00 mg/dL 81143 210 28611 0 126.00 mg/dL 75308 210 74625 9 126.00 mg/dL 05817 210 02727 2 154.00 mg/dL 51520 211 17044 0 53.00 mm[Hg] - Lying Down 104.00 mm[Hg] - Lying Down 98.90 Tympanic 93.00 % 60.00/ min 18.00/min 36080 211 46749 0 62.00 mm[Hg] - Sitting 72.00 mm[Hg] - Sitting 98.30 Tympanic 96.00 % 62.00/ min 18.00/min 01750 211 99322 9 136.00 mg/dL 41297 211 03559 8 131.00 mg/dL 28064 211 14375 3 118.00 mg/dL 59305 211 74097 9 130.00 mg/dL 08330 212 82272 7 46.00 mm[Hg] - Sitting 101.00 mm[Hg] - Sitting 98.50 Tympanic 96.00 % 62.00/ min 20.00/min 13930 212 16710 1 110.00 mg/dL 24869 212 24571 8 110.00 mg/dL 14723 212 66066 8 152.00 mg/dL 41221 212 03762 0 120.00 mg/dL 40420 213 19441 9 123.00 mg/dL 67510 213 24649 9 123.00 mg/dL 21261 213 75840 5 61087 213 26306 2 84251 213 19492 8 28984 213 61199 8 53886 213 51676 5 134.00 mg/dL 17145 214 12735 5 50.00 mm[Hg] - Sitting 108.00 mm[Hg] - Sitting 98.20 Tympanic 97.00 % 60.00/ min 20.00/min 98120 214 75405 0 53.00 mm[Hg] - Sitting 104.00 mm[Hg] - Sitting 97.80 Tympanic 97.00 % 61.00/ min 18.00/min 73362 214 85572 4 122.00 mg/dL 19357 214 56106 2 122.00 mg/dL 80327 214 80737 7 142.00 mg/dL 79335 214 55882 4 142.00 mg/dL 75055 214 38276 7 115.00 mg/dL 30295 214 88032 9 115.00 mg/dL 13159 214 24936 1 121.00 mg/dL 04486 215 72998 5 97.80 Forehead Scan 98.00 % 60.00/ min 18.00/min 62051 215 39911 6 46.00 mm[Hg] - Lying Down 85.00 mm[Hg] - Lying Down 58132 215 78865 5 130.00 mg/dL 01053 215 28678 8 130.00 mg/dL 24431 215 21330 5 130.00 mg/dL 65449 215 10142 2 117.00 mg/dL 51998 215 84509 3 138.00 mg/dL 89239 216 70024 1 62.00 mm[Hg] - Lying Down 90.00 mm[Hg] - Lying Down 91513 216 41587 3 94.00 mg/dL 59811 216 98931 1 36.00 mm[Hg] - Sitting 80.00 mm[Hg] - Sitting 19906 216 41133 9 45697 216 92545 1 01368 216 60157 5 75360 216 77802 0 05634 216 04264 3 Immunizations Vaccine Date Status Influenza 08/29/2024 Completed (PCV13)Pneumococcal 08/29/2024 Completed
--- OUTSIDE RECORDS SUMMARY | 2024-09-26 23:49 | External Medical Summary | Continuity Of Care Document ---
Author Name Unknown Address [address] [address] Organization [facility] Ariadne () Care Team Providers Care Transmission Specialist Name Role Phone DO Perdomo Amy Primary Care Provider [phone] Allergies Allergy Reaction Start Date End Date [...] 3 0.1 mL 09/01 Inactiv e 2023 02552 70603 0 1 time Intrad ermal False Tubersol 5 tub. unit/0.1 mL intradermal injection solution [Tuberculin PPD] 0.1mL Intradermal 1 time For PPD 2nd Step Give 2nd Step PPD Day 1 and Read results Day 3 (schedule 7 days after 1st READ) 0.1mL 09/10 Inactiv e 2023 64923 67959 0 1 time Intrad ermal False Tylenol 325 mg tablet 2 tabs By Mouth Every 4 hours as needed For Pain DO NOT EXCEED 3000 MG APAP/24 Hours 2 tabs 09/02 Inactiv e 2023 97454 68110 0 Every 4 hours as needed By Mouth False Tylenol 325 mg tablet 2 tabs By Mouth Every 4 hours as needed For Fever >100 DO NOT EXCEED 3000 MG APAP/24 Hours 2 tabs 2023 00/00 /0000 Active 2023 84045 25257 0 Every 4 hours as needed By Mouth False Dulcolax (bisacodyl) 10 mg rectal suppository One Suppository per rectum PRN if Milk of Magnisia ineffective. Give on day 5 of no BM 1 sup 2023 Active 2023 43935 75386 1 Daily as needed Rectal False Fleet Enema 19 gram-7 gram/118 mL Administer per rectum PRN one time if dulcolax suppository not effective. Give on day 6 of no BM 1 2023 Active 2023 68056 32211 6 Daily as needed Rectal False Dextrose 50 % in water (D50W) intravenous solution [generic] Dextrose 50% jose manuel 20-50 ml (slow push) Intravenous if Glucagon not effective after 15 minutes. CALL 911 for ED Evaluation. 50% jose manuel 2023 Active 2023 74893 37364 9 Intrav enous False Glucagon (HCl) Emergency Kit 1 mg solution for injection Administer Glucagon 1 mg Intramuscular if 15 minutes after GLucose Gel is administered Glucose remains less than 70 1 mg 2023 Active 2023 63824 17316 2 Intram uscula r False Glucose Gel 40 % oral gel [Dextrose] PRN If resident is unable to swallow (with or without symptoms) and Glucose results less than 70 give GLucose 40% Gel 1 tube orally - Recheck Glucose 15 minutes after administratio n. 1 tube 2023 Active 2023 61589 46495 8 By Mouth False Santyl 250 unit/gram topical ointment dose Topical Once daily to wound bed daily with wound care For Unstageable Pressure injury dose 2023 Active 2023 17527 10005 0 Once daily Topica l False Fluconazole 200 mg tablet [generic] 1 tab By Mouth Once daily For Yeast infection 1 tab 09/01 Inactiv e 2023 45799 82673 3 Once daily By Mouth False Phenazopyri dine 200 mg tablet [generic] 1 tab By Mouth Three times daily as needed For pain 1 tab 09/02 Inactiv e 2023 51539 39893 1 Three times daily as needed By Mouth False Aspirin 81 mg tablet,zaki yed release [generic] 1 tab By Mouth At bedtime For CAD 1 tab 2023 Active 2023 47975 63875 9 At bedtime By Mouth False BD AutoShield Duo Pen Needle 30 gauge x 3/16in 1 4 times a day subcutaneous 4 times a day change needle wqith every use of insulin For Type 2 diabetes Mellitus 1 2023 Active 2023 92417 59399 5 4 times a day Subcut aneous False Albuterol sulfate HFA 90 mcg/actuati on aerosol inhaler [generic] 2 puff Inhalation Every 6 hours as needed For SOB or wheezing 2 puff 2023 Active 2023 13263 65343 2 Every 6 hours as needed Inhala tion False Tramadol 50 mg tablet [generic] 1 tab By Mouth Every 6 hours as needed For pain 1 tab 09/02 Inactiv e 2023 25382 95262 0 Every 6 hours as needed By Mouth False Docusate sodium 100 mg tablet [generic] 1 tab Daily as needed For constipation 1 tab 2023 Active 2023 57237 70352 1 Daily as needed By Mouth False Senna Laxative 8.6 mg tablet 1 tab By Mouth Daily as needed For constipation 1 tab 2023 Active 2023 69903 58483 0 Daily as needed By Mouth False Potassium chloride ER 20 mEq tablet,exte nded release [generic] 1 tab By Mouth Twice daily For hypokalemia 1 tab 2023 Active 2023 85161 15014 1 Twice daily By Mouth False Acyclovir 400 mg tablet [generic] 1 tab By Mouth Twice daily For preventative B-cell lymphoma 1 tab 2023 Active 2023 70153 50284 1 Twice daily By Mouth False Pantoprazol e 40 mg tablet,zaki yed release [generic] 1 tab By Mouth Once daily For gerd 1 tab 09/02 Inactiv e 2023 57044 45454 0 Once daily By Mouth False Metformin 1,000 mg tablet [generic] 1 tab By Mouth Twice daily For DM2 1 tab 09/02 Inactiv e 2023 55584 91489 0 Twice daily By Mouth False Rosuvastati n 20 mg tablet [generic] 1 tab By Mouth At bedtime For hyperlipdemia 1 tab 2023 Active 2023 53271 26339 0 At bedtime By Mouth False Polyethylen e glycol 3350 (bulk) powder [generic] 17 g By Mouth Daily as needed For constipation 17 g 2023 Active 2023 10961 91922 1 Daily as needed By Mouth False Prochlorper azine maleate 10 mg tablet [generic] 1 tab By Mouth Every 6 hours as needed For nausea 1 tab 09/02 Inactiv e 2023 88427 98330 1 Every 6 hours as needed By Mouth False Bisacodyl 5 mg tablet,zaki yed release [generic] 1 tab By Mouth Daily as needed For constipation 1 tab 2023 Active 2023 17782 55829 1 Daily as needed By Mouth False Lorazepam 0.5 mg tablet [generic] 1 tab By Mouth At bedtime as needed For anxiety 1 tab 09/02 Inactiv e 2023 39526 14650 1 At bedtime as needed By Mouth False Insulin glargine (U-300) conc. 300 unit/mL (3 mL) subcutaneou s pen [generic] 40 units Subcutaneous At bedtime For DM2 40 units 09/02 Inactiv e 2023 77913 43701 2 At bedtime Subcut aneous False Jardiance 10 mg tablet 1 tab By Mouth Once daily For DM2 1 tab 2023 Active 2023 77144 30122 7 Once daily By Mouth False Insulin [...] time order For diabetes 2023 Active 2023 48305 16502 5 3 times a day Subcut aneous False Sulfamethox azole 800 mg-trimetho prim 160 mg tablet [generic] 1 tab By Mouth 3 times a week on sunday, sunday, sunday For UTI 1 tab 09/02 Inactiv e 2023 54468 75420 1 3 times a week By Mouth False Gemtesa 75 mg tablet 75mg By Mouth Once daily For urinary management 75mg 2023 Active 2023 35456 71835 7 Once daily By Mouth False Losartan 25 mg tablet [generic] 25mg By Mouth Once daily For HTN 25mg 09/07 Inactiv e 2023 87022 97861 9 Once daily By Mouth False Ozempic 1 mg/dose (4 mg/3 mL) subcutaneou s pen injector 1mg Subcutaneous Every week For diabetes 1mg 09/04 Inactiv e 2023 61317 12977 3 Every week Subcut aneous False Carvedilol 12.5 mg tablet [generic] 12.5mg By Mouth Twice daily For CAD 12.5mg 09/07 Inactiv e 2023 26284 11244 0 Twice daily By Mouth False Loratadine 10 mg tablet [generic] 10 By Mouth Once daily As Needed For CHEMO 10 09/02 Inactiv e 2023 34201 70678 9 Once daily By Mouth False Loperamide 2 mg tablet [generic] 2mg By Mouth Every 6 hours As Needed For diarrhea 2mg 2023 Active 2023 68878 61772 6 Every 6 hours By Mouth False Spironolact one 25 mg tablet [generic] 25mg By Mouth Once daily For HTN 25mg 09/04 Inactiv e 2023 32634 61331 1 Once daily By Mouth False Lasix 40 mg tablet 40 By Mouth Once daily For htn 40 09/04 Inactiv e 2023 83390 93362 1 Once daily By Mouth False Ondansetron HCl 8 mg tablet [generic] 8mg By Mouth Every 8 hours For Encephalopath y 8mg 09/02 Inactiv e 2023 43531 70959 0 Every 8 hours By Mouth False Levofloxaci n 750 mg tablet [generic] 750 mg By Mouth Once daily For UTI 750 mg 09/02 Inactiv e 2023 84640 97803 6 Once daily By Mouth False Miralax 17 gram/dose oral powder 17grams By Mouth Once daily For constipation 17grams 09/03 Inactiv e 2023 62297 77167 0 Once daily By Mouth False Sulfamethox azole 800 mg-trimetho prim 160 mg tablet [generic] 09/02 Inactiv e 2023 87950 55155 1 Sulfamethox azole 800 mg-trimetho prim 160 mg tablet [generic] 1 tab By Mouth 3 times a week on sunday, sunday, sunday For UTI 1 tab 09/02 Inactiv e 2023 42240 70440 1 3 times a week By Mouth False Sulfamethox azole 800 mg-trimetho prim 160 mg tablet [generic] 09/02 Inactiv e 2023 09054 53655 1 Sulfamethox azole 800 mg-trimetho prim 160 mg tablet [generic] 1 tab By Mouth 3 times a week on sunday, sunday, sunday For UTI 1 tab 2023 00/00 /0000 Active 2023 72134 94645 1 3 times a week By Mouth False Polyethylen e glycol 3350 17 gram/dose oral powder [generic] 17 grams By Mouth Once daily For contispation 17 grams 09/04 Inactiv e 2023 62028 88244 4 Once daily By Mouth False Posaconazol e 100 mg tablet,zaki yed release [generic] 300mg By Mouth Once daily For Antifungal 300mg 09/18 Active 2023 05377 43906 0 Once daily By Mouth False Senna 8.6 mg tablet 2 tabs By Mouth Twice daily For contispation 2 tabs 2023 Active 2023 19036 52138 1 Twice daily By Mouth False ProSource No Carb 15 gram-60 kcal/30 mL oral liquid 30 ml By Mouth Once daily For Wound - Note total ml consumed 30 ml 2023 Active 2023 16015 61770 5 Once daily By Mouth False Levofloxaci n 500 mg tablet [generic] 500 mg By Mouth Once daily For Prophylaxis 500 mg 2023 Active 2023 32538 38361 8 Once daily By Mouth False Mirtazapine 7.5 mg tablet [generic] 7.5 mg By Mouth Once daily For Depression 7.5 mg 2023 Active 2023 03623 77568 5 Once daily By Mouth False Prochlorper azine maleate 10 mg tablet [generic] 09/02 Inactiv e 2023 34197 84343 1 Prochlorper azine maleate 10 mg tablet [generic] 1 tab By Mouth Every 6 hours as needed For nausea 1 tab 09/16 Active 2023 60082 23274 1 Every 6 hours as needed By Mouth False Ondansetron HCl 8 mg tablet [generic] 09/02 Inactiv e 2023 30310 54972 0 Ondansetron HCl 8 mg tablet [generic] 8mg By Mouth Every 8 hours For Nausea 8mg 2023 Active 2023 77464 48136 0 Every 8 hours By Mouth False Lorazepam 0.5 mg tablet [generic] 09/02 Inactiv e 2023 80948 51377 1 Lorazepam 0.5 mg tablet [generic] 1 tab By Mouth At bedtime as needed For anxiety 1 tab 09/02 Inactiv e 2023 03566 47891 1 At bedtime as needed By Mouth False Loratadine 10 mg tablet [generic] 09/02 Inactiv e 2023 99782 44036 9 Loratadine 10 mg tablet [generic] 10 By Mouth Once daily As Needed For when receiving chemotherapy 10 202300 Active 2023 27076 84093 9 Once daily By Mouth False Tramadol 50 mg tablet [generic] 09/02 Inactiv e 2023 18708 43585 0 Tramadol 50 mg tablet [generic] 1 tab By Mouth Every 6 hours as needed For moderate/mynor re pain 1 tab 09/02 Inactiv e 2023 34968 35247 0 Every 6 hours as needed By Mouth False Phenazopyri dine 200 mg tablet [generic] 09/02 Inactiv e 2023 13332 25864 1 Phenazopyri dine 200 mg tablet [generic] 1 tab By Mouth Three times daily as needed For bladder pain 1 tab 202300 Active 2023 07733 25470 1 Three times daily as needed By Mouth False Tylenol 325 mg tablet 09/02 Inactiv e 2023 86145 67258 0 Tylenol 325 mg tablet 2 tabs By Mouth Every 4 hours as needed For DO NOT EXCEED 3000 MG APAP/24 Hours For mild Pain 2 tabs 202300 / Active 2023 53848 65571 0 Every 4 hours as needed By Mouth False Metformin 1,000 mg tablet [generic] 09/02 Inactiv e 2023 17709 28218 0 Metformin 1,000 mg tablet [generic] 1 tab By Mouth Twice daily with meals For DM2 1 tab 2023 Active 2023 04806 06062 0 Twice daily By Mouth False Pantoprazol e 40 mg tablet,zaki yed release [generic] 09/02 Inactiv e 2023 36324 26516 0 Pantoprazol e 40 mg tablet,zaki yed release [generic] 1 tab By Mouth Once daily For gerd 1 tab 2023 Active 2023 48162 90983 0 Once daily By Mouth False Tramadol 50 mg tablet [generic] 09/02 Inactiv e 2023 70127 85140 0 Tramadol 50 mg tablet [generic] 1 tab By Mouth Every 6 hours as needed For moderate/mynor re pain 1 tab 2023 Active 2023 11742 34472 0 Every 6 hours as needed By Mouth False Lorazepam 0.5 mg tablet [generic] 09/02 Inactiv e 2023 94266 30630 1 Lorazepam 0.5 mg tablet [generic] 1 tab By Mouth At bedtime as needed For anxiety 1 tab 2023 Active 2023 70218 62136 1 At bedtime as needed By Mouth False Polyethylen e glycol 3350 17 gram/dose oral powder [generic] 17 grams By Mouth Daily as needed PRN For order changed to PRN daily forcontispati on 17 grams 2023 Active 2023 25028 55430 4 Daily as needed By Mouth False Spironolact one 25 mg tablet [generic] 12.5 mg By Mouth Once daily For ESSENTIAL (PRIMARY) HYPERTENSION 12.5 mg 2023 Active 2023 49453 30572 1 Once daily By Mouth I10. False Furosemide 20 mg tablet [generic] 20 mg By Mouth Once daily For UNSPECIFIED SYSTOLIC (CONGESTIVE) HEART FAILURE 20 mg 2023 Active 2023 34513 98477 0 Once daily By Mouth I50.20 False Carvedilol 12.5 mg tablet [generic] 09/07 Inactiv e 2023 35220 38840 0 Carvedilol 12.5 mg tablet [generic] 12.5mg By Mouth Twice daily For CAD hold for systolic b/p less than 100 12.5mg 202300 0000 Active 2023 33727 24293 0 Twice daily By Mouth False Losartan 25 mg tablet [generic] 09/07 Inactiv e 2023 52028 22455 9 Losartan 25 mg tablet [generic] 25mg By Mouth Once daily For HTN 25mg 202300 Active 2023 28236 61331 9 Once daily By Mouth False Unstageable with Drainage wwound bed Topical Once daily Site Coccyx Cleanse with dakins 25%pat dry, apply SANTYL, cover with border gauze For wound care wwound bed 2023 Active 2023 Once daily Topica l False VITAL SIGNS Date Time Diastolic blood pressure Systolic blood pressure Body height Body weight Temperature SpO2 Blood Sugar Pulse Respirations 99078 206 31480 1 64.00 mm[Hg] - Sitting 109.00 mm[Hg] - Sitting 98.70 Tympanic 90.00 % 64.00/ min 16.00/min 206 52123 0 178.60 NI 30298 206 64668 6 63 NI 206 36587 4 72.00 mm[Hg] - Sitting 121.00 mm[Hg] - Sitting 100.40 Forehead Scan 92.00 % 60.00/ min 18.00/min 206 76158 8 72.00 mm[Hg] - Sitting 121.00 mm[Hg] - Sitting 100.40 Tympanic 206 91822 9 60.00/ min 18.00/min 206 75251 5 148.00 mg/dL 207 68572 7 63.00 mm[Hg] - Sitting 122.00 mm[Hg] - Sitting 100.40 Tympanic 60.00/ min 18.00/min 207 86324 7 55.00 mm[Hg] - Sitting 104.00 mm[Hg] - Sitting 98.40 Forehead Scan 96.00 % 66.00/ min 18.00/min 36129 207 09659 5 120.00 mg/dL 00504 207 21559 6 101.00 mg/dL 49553 207 93063 8 63.00 mm[Hg] - Sitting 122.00 mm[Hg] - Sitting 70161 207 57271 7 134.00 mg/dL 05798 207 81773 9 134.00 mg/dL 81647 207 96780 0 127.00 mg/dL 66863 207 09571 7 127.00 mg/dL 38385 207 80626 9 122.00 mg/dL 81865 208 82133 9 62.00 mm[Hg] - Sitting 106.00 mm[Hg] - Sitting 98.60 Tympanic 66.00/ min 18.00/min 78112 208 89239 3 117.00 mg/dL 45429 208 25893 2 155.00 mg/dL 30358 208 01205 6 98.60 Tympanic 90696 208 79660 1 123.00 mg/dL 54839 208 28451 2 123.00 mg/dL 04342 208 75912 4 62.00 mm[Hg] - Sitting 106.00 mm[Hg] - Sitting 70185 208 46337 7 123.00 mg/dL 47358 208 87020 1 123.00 mg/dL 80281 208 92460 7 136.00 mg/dL 06687 209 21095 0 60.00 mm[Hg] - Sitting 113.00 mm[Hg] - Sitting 98.50 Forehead Scan 98.00 % 61.00/ min 16.00/min 89375 209 35739 7 114.00 mg/dL 29674 209 67488 7 111.00 mg/dL 37070 209 09633 0 98.00 Tympanic 81605 209 72002 2 68.00 mm[Hg] - Sitting 118.00 mm[Hg] - Sitting 42416 209 93303 5 156.00 mg/dL 70840 209 80481 4 156.00 mg/dL 08616 209 98167 5 132.00 mg/dL 09591 209 14378 4 132.00 mg/dL 86018 209 48975 0 136.00 mg/dL 49015 210 94009 0 52.00 mm[Hg] - Sitting 119.00 mm[Hg] - Sitting 98.40 Forehead Scan 96.00 % 57.00/ min 18.00/min 89170 210 68156 9 107.00 mg/dL 11871 210 77925 7 108.00 mg/dL 73875 210 97555 8 97.00 Tympanic 29031 210 88538 2 126.00 mg/dL 40661 210 50945 0 126.00 mg/dL 33866 210 29755 9 126.00 mg/dL 78723 210 73719 2 154.00 mg/dL 58282 211 14045 0 53.00 mm[Hg] - Lying Down 104.00 mm[Hg] - Lying Down 98.90 Tympanic 93.00 % 60.00/ min 18.00/min 71410 211 81092 0 62.00 mm[Hg] - Sitting 72.00 mm[Hg] - Sitting 98.30 Tympanic 96.00 % 62.00/ min 18.00/min 91808 211 27377 9 136.00 mg/dL 22644 211 04643 8 131.00 mg/dL 89808 211 89513 3 118.00 mg/dL 32889 211 18445 9 130.00 mg/dL 44347 212 96207 7 46.00 mm[Hg] - Sitting 101.00 mm[Hg] - Sitting 98.50 Tympanic 96.00 % 62.00/ min 20.00/min 26280 212 29940 1 110.00 mg/dL 67553 212 02732 8 110.00 mg/dL 94357 212 25833 8 152.00 mg/dL 76171 212 54076 0 120.00 mg/dL 84269 213 53051 9 123.00 mg/dL 49567 213 33436 9 123.00 mg/dL 59781 213 85629 5 61017 213 41724 2 94663 213 65873 8 61711 213 90485 8 86923 213 32210 5 134.00 mg/dL 05696 214 88381 5 50.00 mm[Hg] - Sitting 108.00 mm[Hg] - Sitting 98.20 Tympanic 97.00 % 60.00/ min 20.00/min 83156 214 06112 0 53.00 mm[Hg] - Sitting 104.00 mm[Hg] - Sitting 97.80 Tympanic 97.00 % 61.00/ min 18.00/min 81981 214 60030 4 122.00 mg/dL 91542 214 31698 2 122.00 mg/dL 56160 214 26022 7 142.00 mg/dL 10158 214 44113 4 142.00 mg/dL 17839 214 01112 7 115.00 mg/dL 00378 214 52702 9 115.00 mg/dL 07408 214 21654 1 121.00 mg/dL 07567 215 58458 5 97.80 Forehead Scan 98.00 % 60.00/ min 18.00/min 33362 215 61305 6 46.00 mm[Hg] - Lying Down 85.00 mm[Hg] - Lying Down 33403 215 37406 5 130.00 mg/dL 08508 215 88632 8 130.00 mg/dL 85545 215 25808 5 130.00 mg/dL 11793 215 02626 2 117.00 mg/dL 92936 215 21805 3 138.00 mg/dL 35146 216 23791 1 62.00 mm[Hg] - Lying Down 90.00 mm[Hg] - Lying Down 50275 216 23022 3 94.00 mg/dL 44127 216 71913 1 36.00 mm[Hg] - Sitting 80.00 mm[Hg] - Sitting 19331 216 60393 9 35530 216 05618 1 29135 216 29408 5 47358 216 98110 0 17091 216 97381 3 Immunizations Vaccine Date Status Influenza 08/29/2024 Completed (PCV13)Pneumococcal 08/29/2024 Completed
--- OUTSIDE RECORDS SUMMARY | 2024-09-26 23:49 | External Medical Summary | Continuity Of Care Document ---
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 unit/0.1 mL intradermal injection solution [Tuberculin PPD] 0.1mL Intradermal 1 time For PPD 2nd Step Give 2nd Step PPD Day 1 and Read results Day 3 (schedule 7 days after 1st READ) 0.1mL 09/10 Inactiv e 2023 12414 05775 0 1 time Intrad ermal False Tylenol 325 mg tablet 2 tabs By Mouth Every 4 hours as needed For Pain DO NOT EXCEED 3000 MG APAP/24 Hours 2 tabs 09/02 Inactiv e 2023 54153 35198 0 Every 4 hours as needed By Mouth False Tylenol 325 mg tablet 2 tabs By Mouth Every 4 hours as needed For Fever >100 DO NOT EXCEED 3000 MG APAP/24 Hours 2 tabs 2023 00/00 /0000 Active 2023 88947 15292 0 Every 4 hours as needed By Mouth False Dulcolax (bisacodyl) 10 mg rectal suppository One Suppository per rectum PRN if Milk of Magnisia ineffective. Give on day 5 of no BM 1 sup 2023 Active 2023 65634 43438 1 Daily as needed Rectal False Fleet Enema 19 gram-7 gram/118 mL Administer per rectum PRN one time if dulcolax suppository not effective. Give on day 6 of no BM 1 2023 Active 2023 43635 26905 6 Daily as needed Rectal False Dextrose 50 % in water (D50W) intravenous solution [generic] Dextrose 50% jose manuel 20-50 ml (slow push) Intravenous if Glucagon not effective after 15 minutes. CALL 911 for ED Evaluation. 50% jose manuel 2023 Active 2023 89764 78097 9 Intrav enous False Glucagon (HCl) Emergency Kit 1 mg solution for injection Administer Glucagon 1 mg Intramuscular if 15 minutes after GLucose Gel is administered Glucose remains less than 70 1 mg 2023 Active 2023 85971 42258 2 Intram uscula r False Glucose Gel 40 % oral gel [Dextrose] PRN If resident is unable to swallow (with or without symptoms) and Glucose results less than 70 give GLucose 40% Gel 1 tube orally - Recheck Glucose 15 minutes after administratio n. 1 tube 2023 Active 2023 54639 79240 8 By Mouth False Santyl 250 unit/gram topical ointment dose Topical Once daily to wound bed daily with wound care For Unstageable Pressure injury dose 2023 Active 2023 39309 77115 0 Once daily Topica l False Fluconazole 200 mg tablet [generic] 1 tab By Mouth Once daily For Yeast infection 1 tab 09/01 Inactiv e 2023 80513 27808 3 Once daily By Mouth False Phenazopyri dine 200 mg tablet [generic] 1 tab By Mouth Three times daily as needed For pain 1 tab 09/02 Inactiv e 2023 68673 71523 1 Three times daily as needed By Mouth False Aspirin 81 mg tablet,zaki yed release [generic] 1 tab By Mouth At bedtime For CAD 1 tab 2023 Active 2023 91384 74399 9 At bedtime By Mouth False BD AutoShield Duo Pen Needle 30 gauge x 3/16in 1 4 times a day subcutaneous 4 times a day change needle wqith every use of insulin For Type 2 diabetes Mellitus 1 2023 Active 2023 77533 29044 5 4 times a day Subcut aneous False Albuterol sulfate HFA 90 mcg/actuati on aerosol inhaler [generic] 2 puff Inhalation Every 6 hours as needed For SOB or wheezing 2 puff 2023 Active 2023 54783 21295 2 Every 6 hours as needed Inhala tion False Tramadol 50 mg tablet [generic] 1 tab By Mouth Every 6 hours as needed For pain 1 tab 09/02 Inactiv e 2023 46891 17771 0 Every 6 hours as needed By Mouth False Docusate sodium 100 mg tablet [generic] 1 tab Daily as needed For constipation 1 tab 2023 Active 2023 35351 97090 1 Daily as needed By Mouth False Senna Laxative 8.6 mg tablet 1 tab By Mouth Daily as needed For constipation 1 tab 2023 Active 2023 46143 15665 0 Daily as needed By Mouth False Potassium chloride ER 20 mEq tablet,exte nded release [generic] 1 tab By Mouth Twice daily For hypokalemia 1 tab 2023 Active 2023 14922 63908 1 Twice daily By Mouth False Acyclovir 400 mg tablet [generic] 1 tab By Mouth Twice daily For preventative B-cell lymphoma 1 tab 2023 Active 2023 29541 86719 1 Twice daily By Mouth False Pantoprazol e 40 mg tablet,zaki yed release [generic] 1 tab By Mouth Once daily For gerd 1 tab 09/02 Inactiv e 2023 68509 44686 0 Once daily By Mouth False Metformin 1,000 mg tablet [generic] 1 tab By Mouth Twice daily For DM2 1 tab 09/02 Inactiv e 2023 07861 85194 0 Twice daily By Mouth False Rosuvastati n 20 mg tablet [generic] 1 tab By Mouth At bedtime For hyperlipdemia 1 tab 2023 Active 2023 35288 88318 0 At bedtime By Mouth False Polyethylen e glycol 3350 (bulk) powder [generic] 17 g By Mouth Daily as needed For constipation 17 g 2023 Active 2023 78909 48101 1 Daily as needed By Mouth False Prochlorper azine maleate 10 mg tablet [generic] 1 tab By Mouth Every 6 hours as needed For nausea 1 tab 09/02 Inactiv e 2023 66606 48976 1 Every 6 hours as needed By Mouth False Bisacodyl 5 mg tablet,zaki yed release [generic] 1 tab By Mouth Daily as needed For constipation 1 tab 2023 Active 2023 24893 57873 1 Daily as needed By Mouth False Lorazepam 0.5 mg tablet [generic] 1 tab By Mouth At bedtime as needed For anxiety 1 tab 09/02 Inactiv e 2023 46231 99395 1 At bedtime as needed By Mouth False Insulin glargine (U-300) conc. 300 unit/mL (3 mL) subcutaneou s pen [generic] 40 units Subcutaneous At bedtime For DM2 40 units 09/02 Inactiv e 2023 18560 37616 2 At bedtime Subcut aneous False Jardiance 10 mg tablet 1 tab By Mouth Once daily For DM2 1 tab 2023 Active 2023 25008 42953 7 Once daily By Mouth False Insulin [...] time order For diabetes 2023 Active 2023 69480 52842 5 3 times a day Subcut aneous False Sulfamethox azole 800 mg-trimetho prim 160 mg tablet [generic] 1 tab By Mouth 3 times a week on sunday, sunday, sunday For UTI 1 tab 09/02 Inactiv e 2023 19763 46619 1 3 times a week By Mouth False Gemtesa 75 mg tablet 75mg By Mouth Once daily For urinary management 75mg 2023 Active 2023 65540 44077 7 Once daily By Mouth False Losartan 25 mg tablet [generic] 25mg By Mouth Once daily For HTN 25mg 09/07 Inactiv e 2023 58244 67327 9 Once daily By Mouth False Ozempic 1 mg/dose (4 mg/3 mL) subcutaneou s pen injector 1mg Subcutaneous Every week For diabetes 1mg 09/04 Inactiv e 2023 44676 59236 3 Every week Subcut aneous False Carvedilol 12.5 mg tablet [generic] 12.5mg By Mouth Twice daily For CAD 12.5mg 09/07 Inactiv e 2023 30701 03520 0 Twice daily By Mouth False Loratadine 10 mg tablet [generic] 10 By Mouth Once daily As Needed For CHEMO 10 09/02 Inactiv e 2023 99587 39516 9 Once daily By Mouth False Loperamide 2 mg tablet [generic] 2mg By Mouth Every 6 hours As Needed For diarrhea 2mg 2023 Active 2023 56502 24839 6 Every 6 hours By Mouth False Spironolact one 25 mg tablet [generic] 25mg By Mouth Once daily For HTN 25mg 09/04 Inactiv e 2023 04909 43754 1 Once daily By Mouth False Lasix 40 mg tablet 40 By Mouth Once daily For htn 40 09/04 Inactiv e 2023 30572 65535 1 Once daily By Mouth False Ondansetron HCl 8 mg tablet [generic] 8mg By Mouth Every 8 hours For Encephalopath y 8mg 09/02 Inactiv e 2023 18148 79137 0 Every 8 hours By Mouth False Levofloxaci n 750 mg tablet [generic] 750 mg By Mouth Once daily For UTI 750 mg 09/02 Inactiv e 2023 39267 75439 6 Once daily By Mouth False Miralax 17 gram/dose oral powder 17grams By Mouth Once daily For constipation 17grams 09/03 Inactiv e 2023 35535 93714 0 Once daily By Mouth False Sulfamethox azole 800 mg-trimetho prim 160 mg tablet [generic] 09/02 Inactiv e 2023 59349 41956 1 Sulfamethox azole 800 mg-trimetho prim 160 mg tablet [generic] 1 tab By Mouth 3 times a week on sunday, sunday, sunday For UTI 1 tab 09/02 Inactiv e 2023 36876 75480 1 3 times a week By Mouth False Sulfamethox azole 800 mg-trimetho prim 160 mg tablet [generic] 09/02 Inactiv e 2023 30005 75078 1 Sulfamethox azole 800 mg-trimetho prim 160 mg tablet [generic] 1 tab By Mouth 3 times a week on sunday, sunday, sunday For UTI 1 tab 2023 00/00 /0000 Active 2023 54002 97452 1 3 times a week By Mouth False Polyethylen e glycol 3350 17 gram/dose oral powder [generic] 17 grams By Mouth Once daily For contispation 17 grams 09/04 Inactiv e 2023 24589 87163 4 Once daily By Mouth False Posaconazol e 100 mg tablet,zaki yed release [generic] 300mg By Mouth Once daily For Antifungal 300mg 09/18 Active 2023 04522 08423 0 Once daily By Mouth False Senna 8.6 mg tablet 2 tabs By Mouth Twice daily For contispation 2 tabs 2023 Active 2023 14972 66836 1 Twice daily By Mouth False ProSource No Carb 15 gram-60 kcal/30 mL oral liquid 30 ml By Mouth Once daily For Wound - Note total ml consumed 30 ml 2023 Active 2023 41241 32705 5 Once daily By Mouth False Levofloxaci n 500 mg tablet [generic] 500 mg By Mouth Once daily For Prophylaxis 500 mg 2023 Active 2023 95386 04484 8 Once daily By Mouth False Mirtazapine 7.5 mg tablet [generic] 7.5 mg By Mouth Once daily For Depression 7.5 mg 2023 Active 2023 80527 36037 5 Once daily By Mouth False Prochlorper azine maleate 10 mg tablet [generic] 09/02 Inactiv e 2023 16253 76770 1 Prochlorper azine maleate 10 mg tablet [generic] 1 tab By Mouth Every 6 hours as needed For nausea 1 tab 09/16 Active 2023 26286 86821 1 Every 6 hours as needed By Mouth False Ondansetron HCl 8 mg tablet [generic] 09/02 Inactiv e 2023 97710 51067 0 Ondansetron HCl 8 mg tablet [generic] 8mg By Mouth Every 8 hours For Nausea 8mg 2023 Active 2023 13469 59986 0 Every 8 hours By Mouth False Lorazepam 0.5 mg tablet [generic] 09/02 Inactiv e 2023 07242 62528 1 Lorazepam 0.5 mg tablet [generic] 1 tab By Mouth At bedtime as needed For anxiety 1 tab 09/02 Inactiv e 2023 39783 70045 1 At bedtime as needed By Mouth False Loratadine 10 mg tablet [generic] 09/02 Inactiv e 2023 27800 94680 9 Loratadine 10 mg tablet [generic] 10 By Mouth Once daily As Needed For when receiving chemotherapy 10 202300 Active 2023 02181 56577 9 Once daily By Mouth False Tramadol 50 mg tablet [generic] 09/02 Inactiv e 2023 48817 87060 0 Tramadol 50 mg tablet [generic] 1 tab By Mouth Every 6 hours as needed For moderate/mynor re pain 1 tab 09/02 Inactiv e 2023 61392 22853 0 Every 6 hours as needed By Mouth False Phenazopyri dine 200 mg tablet [generic] 09/02 Inactiv e 2023 28433 10080 1 Phenazopyri dine 200 mg tablet [generic] 1 tab By Mouth Three times daily as needed For bladder pain 1 tab 202300 Active 2023 06261 45699 1 Three times daily as needed By Mouth False Tylenol 325 mg tablet 09/02 Inactiv e 2023 23596 85447 0 Tylenol 325 mg tablet 2 tabs By Mouth Every 4 hours as needed For DO NOT EXCEED 3000 MG APAP/24 Hours For mild Pain 2 tabs 202300 / Active 2023 44576 08997 0 Every 4 hours as needed By Mouth False Metformin 1,000 mg tablet [generic] 09/02 Inactiv e 2023 28900 33801 0 Metformin 1,000 mg tablet [generic] 1 tab By Mouth Twice daily with meals For DM2 1 tab 2023 Active 2023 82302 40958 0 Twice daily By Mouth False Pantoprazol e 40 mg tablet,zaki yed release [generic] 09/02 Inactiv e 2023 43685 05100 0 Pantoprazol e 40 mg tablet,zaki yed release [generic] 1 tab By Mouth Once daily For gerd 1 tab 2023 Active 2023 79100 43581 0 Once daily By Mouth False Tramadol 50 mg tablet [generic] 09/02 Inactiv e 2023 63989 54786 0 Tramadol 50 mg tablet [generic] 1 tab By Mouth Every 6 hours as needed For moderate/mynor re pain 1 tab 2023 Active 2023 42356 76281 0 Every 6 hours as needed By Mouth False Lorazepam 0.5 mg tablet [generic] 09/02 Inactiv e 2023 20893 39645 1 Lorazepam 0.5 mg tablet [generic] 1 tab By Mouth At bedtime as needed For anxiety 1 tab 2023 Active 2023 54197 70477 1 At bedtime as needed By Mouth False Polyethylen e glycol 3350 17 gram/dose oral powder [generic] 17 grams By Mouth Daily as needed PRN For order changed to PRN daily forcontispati on 17 grams 2023 Active 2023 82447 23345 4 Daily as needed By Mouth False Spironolact one 25 mg tablet [generic] 12.5 mg By Mouth Once daily For ESSENTIAL (PRIMARY) HYPERTENSION 12.5 mg 2023 Active 2023 30032 92313 1 Once daily By Mouth I10. False Furosemide 20 mg tablet [generic] 20 mg By Mouth Once daily For UNSPECIFIED SYSTOLIC (CONGESTIVE) HEART FAILURE 20 mg 2023 Active 2023 58388 06829 0 Once daily By Mouth I50.20 False Carvedilol 12.5 mg tablet [generic] 09/07 Inactiv e 2023 78294 48692 0 Carvedilol 12.5 mg tablet [generic] 12.5mg By Mouth Twice daily For CAD hold for systolic b/p less than 100 12.5mg 202300 0000 Active 2023 08484 59899 0 Twice daily By Mouth False Losartan 25 mg tablet [generic] 09/07 Inactiv e 2023 78576 75267 9 Losartan 25 mg tablet [generic] 25mg By Mouth Once daily For HTN 25mg 202300 Active 2023 88640 73918 9 Once daily By Mouth False Unstageable with Drainage wwound bed Topical Once daily Site Coccyx Cleanse with dakins 25%pat dry, apply SANTYL, cover with border gauze For wound care wwound bed 2023 Active 2023 Once daily Topica l False VITAL SIGNS Date Time Diastolic blood pressure Systolic blood pressure Body height Body weight Temperature SpO2 Blood Sugar Pulse Respirations 63866 206 90221 1 64.00 mm[Hg] - Sitting 109.00 mm[Hg] - Sitting 98.70 Tympanic 90.00 % 64.00/ min 16.00/min 206 67294 0 178.60 NI 75105 206 66439 6 63 NI 206 04703 4 72.00 mm[Hg] - Sitting 121.00 mm[Hg] - Sitting 100.40 Forehead Scan 92.00 % 60.00/ min 18.00/min 206 27539 8 72.00 mm[Hg] - Sitting 121.00 mm[Hg] - Sitting 100.40 Tympanic 206 57044 9 60.00/ min 18.00/min 206 30622 5 148.00 mg/dL 207 30234 7 63.00 mm[Hg] - Sitting 122.00 mm[Hg] - Sitting 100.40 Tympanic 60.00/ min 18.00/min 207 11251 7 55.00 mm[Hg] - Sitting 104.00 mm[Hg] - Sitting 98.40 Forehead Scan 96.00 % 66.00/ min 18.00/min 39027 207 61549 5 120.00 mg/dL 41453 207 51073 6 101.00 mg/dL 17122 207 33868 8 63.00 mm[Hg] - Sitting 122.00 mm[Hg] - Sitting 18196 207 92380 7 134.00 mg/dL 99302 207 10057 9 134.00 mg/dL 80031 207 46009 0 127.00 mg/dL 18886 207 42093 7 127.00 mg/dL 08419 207 64004 9 122.00 mg/dL 35727 208 06184 9 62.00 mm[Hg] - Sitting 106.00 mm[Hg] - Sitting 98.60 Tympanic 66.00/ min 18.00/min 31489 208 68191 3 117.00 mg/dL 90010 208 28270 2 155.00 mg/dL 67646 208 85657 6 98.60 Tympanic 82396 208 19169 1 123.00 mg/dL 80972 208 24468 2 123.00 mg/dL 51943 208 05814 4 62.00 mm[Hg] - Sitting 106.00 mm[Hg] - Sitting 54398 208 35344 7 123.00 mg/dL 29186 208 31496 1 123.00 mg/dL 55247 208 64440 7 136.00 mg/dL 97856 209 46661 0 60.00 mm[Hg] - Sitting 113.00 mm[Hg] - Sitting 98.50 Forehead Scan 98.00 % 61.00/ min 16.00/min 09597 209 72726 7 114.00 mg/dL 04255 209 70774 7 111.00 mg/dL 18480 209 97256 0 98.00 Tympanic 59344 209 41570 2 68.00 mm[Hg] - Sitting 118.00 mm[Hg] - Sitting 81500 209 71030 5 156.00 mg/dL 83540 209 77144 4 156.00 mg/dL 47960 209 53130 5 132.00 mg/dL 57984 209 02091 4 132.00 mg/dL 96874 209 76445 0 136.00 mg/dL 36219 210 33572 0 52.00 mm[Hg] - Sitting 119.00 mm[Hg] - Sitting 98.40 Forehead Scan 96.00 % 57.00/ min 18.00/min 54493 210 19535 9 107.00 mg/dL 50256 210 54297 7 108.00 mg/dL 63547 210 69963 8 97.00 Tympanic 47276 210 07026 2 126.00 mg/dL 37928 210 08472 0 126.00 mg/dL 36665 210 72880 9 126.00 mg/dL 58841 210 29577 2 154.00 mg/dL 70390 211 08331 0 53.00 mm[Hg] - Lying Down 104.00 mm[Hg] - Lying Down 98.90 Tympanic 93.00 % 60.00/ min 18.00/min 39391 211 32194 0 62.00 mm[Hg] - Sitting 72.00 mm[Hg] - Sitting 98.30 Tympanic 96.00 % 62.00/ min 18.00/min 65324 211 15977 9 136.00 mg/dL 27692 211 49234 8 131.00 mg/dL 22053 211 85262 3 118.00 mg/dL 23366 211 00608 9 130.00 mg/dL 66809 212 08758 7 46.00 mm[Hg] - Sitting 101.00 mm[Hg] - Sitting 98.50 Tympanic 96.00 % 62.00/ min 20.00/min 35534 212 31699 1 110.00 mg/dL 73722 212 74068 8 110.00 mg/dL 31109 212 84338 8 152.00 mg/dL 23900 212 13051 0 120.00 mg/dL 96334 213 81293 9 123.00 mg/dL 58486 213 37606 9 123.00 mg/dL 34264 213 19569 5 11460 213 92095 2 97404 213 51497 8 76007 213 07450 8 46312 213 85220 5 134.00 mg/dL 53903 214 97093 5 50.00 mm[Hg] - Sitting 108.00 mm[Hg] - Sitting 98.20 Tympanic 97.00 % 60.00/ min 20.00/min 75226 214 34755 0 53.00 mm[Hg] - Sitting 104.00 mm[Hg] - Sitting 97.80 Tympanic 97.00 % 61.00/ min 18.00/min 01268 214 62666 4 122.00 mg/dL 21819 214 24684 2 122.00 mg/dL 43910 214 32348 7 142.00 mg/dL 33808 214 24351 4 142.00 mg/dL 30507 214 27325 7 115.00 mg/dL 20107 214 30693 9 115.00 mg/dL 39237 214 35053 1 121.00 mg/dL 67838 215 85584 5 97.80 Forehead Scan 98.00 % 60.00/ min 18.00/min 10553 215 19339 6 46.00 mm[Hg] - Lying Down 85.00 mm[Hg] - Lying Down 34021 215 53610 5 130.00 mg/dL 20416 215 54966 8 130.00 mg/dL 93068 215 91033 5 130.00 mg/dL 86217 215 68106 2 117.00 mg/dL 25559 215 67801 3 138.00 mg/dL 49209 216 73387 1 62.00 mm[Hg] - Lying Down 90.00 mm[Hg] - Lying Down 09592 216 98075 3 94.00 mg/dL 49731 216 55403 1 36.00 mm[Hg] - Sitting 80.00 mm[Hg] - Sitting 97462 216 18718 9 00252 216 31471 1 84682 216 12204 5 04607 216 95833 0 08241 216 35450 3 Immunizations Vaccine Date Status Influenza 08/29/2024 Completed (PCV13)Pneumococcal 08/29/2024 Completed
--- OUTSIDE RECORDS SUMMARY | 2024-09-26 23:49 | External Medical Summary | Continuity Of Care Document ---
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 unit/0.1 mL intradermal injection solution [Tuberculin PPD] 0.1mL Intradermal 1 time For PPD 2nd Step Give 2nd Step PPD Day 1 and Read results Day 3 (schedule 7 days after 1st READ) 0.1mL 09/10 Inactiv e 2023 00320 56237 0 1 time Intrad ermal False Tylenol 325 mg tablet 2 tabs By Mouth Every 4 hours as needed For Pain DO NOT EXCEED 3000 MG APAP/24 Hours 2 tabs 09/02 Inactiv e 2023 78312 40746 0 Every 4 hours as needed By Mouth False Tylenol 325 mg tablet 2 tabs By Mouth Every 4 hours as needed For Fever >100 DO NOT EXCEED 3000 MG APAP/24 Hours 2 tabs 2023 00/00 /0000 Active 2023 90738 38906 0 Every 4 hours as needed By Mouth False Dulcolax (bisacodyl) 10 mg rectal suppository One Suppository per rectum PRN if Milk of Magnisia ineffective. Give on day 5 of no BM 1 sup 2023 Active 2023 13699 04786 1 Daily as needed Rectal False Fleet Enema 19 gram-7 gram/118 mL Administer per rectum PRN one time if dulcolax suppository not effective. Give on day 6 of no BM 1 2023 Active 2023 25443 97785 6 Daily as needed Rectal False Dextrose 50 % in water (D50W) intravenous solution [generic] Dextrose 50% jose manuel 20-50 ml (slow push) Intravenous if Glucagon not effective after 15 minutes. CALL 911 for ED Evaluation. 50% jose manuel 2023 Active 2023 78782 88636 9 Intrav enous False Glucagon (HCl) Emergency Kit 1 mg solution for injection Administer Glucagon 1 mg Intramuscular if 15 minutes after GLucose Gel is administered Glucose remains less than 70 1 mg 2023 Active 2023 53908 47581 2 Intram uscula r False Glucose Gel 40 % oral gel [Dextrose] PRN If resident is unable to swallow (with or without symptoms) and Glucose results less than 70 give GLucose 40% Gel 1 tube orally - Recheck Glucose 15 minutes after administratio n. 1 tube 2023 Active 2023 63589 55097 8 By Mouth False Santyl 250 unit/gram topical ointment dose Topical Once daily to wound bed daily with wound care For Unstageable Pressure injury dose 2023 Active 2023 00572 93768 0 Once daily Topica l False Fluconazole 200 mg tablet [generic] 1 tab By Mouth Once daily For Yeast infection 1 tab 09/01 Inactiv e 2023 09871 55593 3 Once daily By Mouth False Phenazopyri dine 200 mg tablet [generic] 1 tab By Mouth Three times daily as needed For pain 1 tab 09/02 Inactiv e 2023 19761 12695 1 Three times daily as needed By Mouth False Aspirin 81 mg tablet,zaki yed release [generic] 1 tab By Mouth At bedtime For CAD 1 tab 2023 Active 2023 84872 71714 9 At bedtime By Mouth False BD AutoShield Duo Pen Needle 30 gauge x 3/16in 1 4 times a day subcutaneous 4 times a day change needle wqith every use of insulin For Type 2 diabetes Mellitus 1 2023 Active 2023 30777 29696 5 4 times a day Subcut aneous False Albuterol sulfate HFA 90 mcg/actuati on aerosol inhaler [generic] 2 puff Inhalation Every 6 hours as needed For SOB or wheezing 2 puff 2023 Active 2023 05940 52161 2 Every 6 hours as needed Inhala tion False Tramadol 50 mg tablet [generic] 1 tab By Mouth Every 6 hours as needed For pain 1 tab 09/02 Inactiv e 2023 28612 86622 0 Every 6 hours as needed By Mouth False Docusate sodium 100 mg tablet [generic] 1 tab Daily as needed For constipation 1 tab 2023 Active 2023 28299 35357 1 Daily as needed By Mouth False Senna Laxative 8.6 mg tablet 1 tab By Mouth Daily as needed For constipation 1 tab 2023 Active 2023 73149 54197 0 Daily as needed By Mouth False Potassium chloride ER 20 mEq tablet,exte nded release [generic] 1 tab By Mouth Twice daily For hypokalemia 1 tab 2023 Active 2023 75300 10100 1 Twice daily By Mouth False Acyclovir 400 mg tablet [generic] 1 tab By Mouth Twice daily For preventative B-cell lymphoma 1 tab 2023 Active 2023 15709 82290 1 Twice daily By Mouth False Pantoprazol e 40 mg tablet,zaki yed release [generic] 1 tab By Mouth Once daily For gerd 1 tab 09/02 Inactiv e 2023 53205 47501 0 Once daily By Mouth False Metformin 1,000 mg tablet [generic] 1 tab By Mouth Twice daily For DM2 1 tab 09/02 Inactiv e 2023 04349 31869 0 Twice daily By Mouth False Rosuvastati n 20 mg tablet [generic] 1 tab By Mouth At bedtime For hyperlipdemia 1 tab 2023 Active 2023 09206 40601 0 At bedtime By Mouth False Polyethylen e glycol 3350 (bulk) powder [generic] 17 g By Mouth Daily as needed For constipation 17 g 2023 Active 2023 18834 14481 1 Daily as needed By Mouth False Prochlorper azine maleate 10 mg tablet [generic] 1 tab By Mouth Every 6 hours as needed For nausea 1 tab 09/02 Inactiv e 2023 95106 56346 1 Every 6 hours as needed By Mouth False Bisacodyl 5 mg tablet,zaki yed release [generic] 1 tab By Mouth Daily as needed For constipation 1 tab 2023 Active 2023 09910 75291 1 Daily as needed By Mouth False Lorazepam 0.5 mg tablet [generic] 1 tab By Mouth At bedtime as needed For anxiety 1 tab 09/02 Inactiv e 2023 96068 90819 1 At bedtime as needed By Mouth False Insulin glargine (U-300) conc. 300 unit/mL (3 mL) subcutaneou s pen [generic] 40 units Subcutaneous At bedtime For DM2 40 units 09/02 Inactiv e 2023 17306 97102 2 At bedtime Subcut aneous False Jardiance 10 mg tablet 1 tab By Mouth Once daily For DM2 1 tab 2023 Active 2023 53874 69567 7 Once daily By Mouth False Insulin [...] time order For diabetes 2023 Active 2023 56941 23018 5 3 times a day Subcut aneous False Sulfamethox azole 800 mg-trimetho prim 160 mg tablet [generic] 1 tab By Mouth 3 times a week on sunday, sunday, sunday For UTI 1 tab 09/02 Inactiv e 2023 79036 08965 1 3 times a week By Mouth False Gemtesa 75 mg tablet 75mg By Mouth Once daily For urinary management 75mg 2023 Active 2023 12102 43041 7 Once daily By Mouth False Losartan 25 mg tablet [generic] 25mg By Mouth Once daily For HTN 25mg 09/07 Inactiv e 2023 54540 72738 9 Once daily By Mouth False Ozempic 1 mg/dose (4 mg/3 mL) subcutaneou s pen injector 1mg Subcutaneous Every week For diabetes 1mg 09/04 Inactiv e 2023 48265 58266 3 Every week Subcut aneous False Carvedilol 12.5 mg tablet [generic] 12.5mg By Mouth Twice daily For CAD 12.5mg 09/07 Inactiv e 2023 22688 62270 0 Twice daily By Mouth False Loratadine 10 mg tablet [generic] 10 By Mouth Once daily As Needed For CHEMO 10 09/02 Inactiv e 2023 27092 48342 9 Once daily By Mouth False Loperamide 2 mg tablet [generic] 2mg By Mouth Every 6 hours As Needed For diarrhea 2mg 2023 Active 2023 18845 18482 6 Every 6 hours By Mouth False Spironolact one 25 mg tablet [generic] 25mg By Mouth Once daily For HTN 25mg 09/04 Inactiv e 2023 76701 69829 1 Once daily By Mouth False Lasix 40 mg tablet 40 By Mouth Once daily For htn 40 09/04 Inactiv e 2023 59907 73735 1 Once daily By Mouth False Ondansetron HCl 8 mg tablet [generic] 8mg By Mouth Every 8 hours For Encephalopath y 8mg 09/02 Inactiv e 2023 00297 92456 0 Every 8 hours By Mouth False Levofloxaci n 750 mg tablet [generic] 750 mg By Mouth Once daily For UTI 750 mg 09/02 Inactiv e 2023 64471 70548 6 Once daily By Mouth False Miralax 17 gram/dose oral powder 17grams By Mouth Once daily For constipation 17grams 09/03 Inactiv e 2023 04926 92434 0 Once daily By Mouth False Sulfamethox azole 800 mg-trimetho prim 160 mg tablet [generic] 09/02 Inactiv e 2023 31315 82561 1 Sulfamethox azole 800 mg-trimetho prim 160 mg tablet [generic] 1 tab By Mouth 3 times a week on sunday, sunday, sunday For UTI 1 tab 09/02 Inactiv e 2023 49368 98471 1 3 times a week By Mouth False Sulfamethox azole 800 mg-trimetho prim 160 mg tablet [generic] 09/02 Inactiv e 2023 12190 07520 1 Sulfamethox azole 800 mg-trimetho prim 160 mg tablet [generic] 1 tab By Mouth 3 times a week on sunday, sunday, sunday For UTI 1 tab 2023 00/00 /0000 Active 2023 64664 44473 1 3 times a week By Mouth False Polyethylen e glycol 3350 17 gram/dose oral powder [generic] 17 grams By Mouth Once daily For contispation 17 grams 09/04 Inactiv e 2023 90602 50937 4 Once daily By Mouth False Posaconazol e 100 mg tablet,zaki yed release [generic] 300mg By Mouth Once daily For Antifungal 300mg 09/18 Active 2023 69065 65354 0 Once daily By Mouth False Senna 8.6 mg tablet 2 tabs By Mouth Twice daily For contispation 2 tabs 2023 Active 2023 94441 64513 1 Twice daily By Mouth False ProSource No Carb 15 gram-60 kcal/30 mL oral liquid 30 ml By Mouth Once daily For Wound - Note total ml consumed 30 ml 2023 Active 2023 73445 29915 5 Once daily By Mouth False Levofloxaci n 500 mg tablet [generic] 500 mg By Mouth Once daily For Prophylaxis 500 mg 2023 Active 2023 05269 10943 8 Once daily By Mouth False Mirtazapine 7.5 mg tablet [generic] 7.5 mg By Mouth Once daily For Depression 7.5 mg 2023 Active 2023 06521 84040 5 Once daily By Mouth False Prochlorper azine maleate 10 mg tablet [generic] 09/02 Inactiv e 2023 06240 56382 1 Prochlorper azine maleate 10 mg tablet [generic] 1 tab By Mouth Every 6 hours as needed For nausea 1 tab 09/16 Active 2023 81726 62981 1 Every 6 hours as needed By Mouth False Ondansetron HCl 8 mg tablet [generic] 09/02 Inactiv e 2023 80370 18825 0 Ondansetron HCl 8 mg tablet [generic] 8mg By Mouth Every 8 hours For Nausea 8mg 2023 Active 2023 22928 46465 0 Every 8 hours By Mouth False Lorazepam 0.5 mg tablet [generic] 09/02 Inactiv e 2023 37556 56052 1 Lorazepam 0.5 mg tablet [generic] 1 tab By Mouth At bedtime as needed For anxiety 1 tab 09/02 Inactiv e 2023 65442 01285 1 At bedtime as needed By Mouth False Loratadine 10 mg tablet [generic] 09/02 Inactiv e 2023 66372 96533 9 Loratadine 10 mg tablet [generic] 10 By Mouth Once daily As Needed For when receiving chemotherapy 10 202300 Active 2023 15154 29735 9 Once daily By Mouth False Tramadol 50 mg tablet [generic] 09/02 Inactiv e 2023 57077 20414 0 Tramadol 50 mg tablet [generic] 1 tab By Mouth Every 6 hours as needed For moderate/mynor re pain 1 tab 09/02 Inactiv e 2023 18701 02451 0 Every 6 hours as needed By Mouth False Phenazopyri dine 200 mg tablet [generic] 09/02 Inactiv e 2023 30396 49934 1 Phenazopyri dine 200 mg tablet [generic] 1 tab By Mouth Three times daily as needed For bladder pain 1 tab 202300 Active 2023 83901 70620 1 Three times daily as needed By Mouth False Tylenol 325 mg tablet 09/02 Inactiv e 2023 22383 12430 0 Tylenol 325 mg tablet 2 tabs By Mouth Every 4 hours as needed For DO NOT EXCEED 3000 MG APAP/24 Hours For mild Pain 2 tabs 202300 / Active 2023 35590 27835 0 Every 4 hours as needed By Mouth False Metformin 1,000 mg tablet [generic] 09/02 Inactiv e 2023 47919 97042 0 Metformin 1,000 mg tablet [generic] 1 tab By Mouth Twice daily with meals For DM2 1 tab 2023 Active 2023 88300 17409 0 Twice daily By Mouth False Pantoprazol e 40 mg tablet,zaki yed release [generic] 09/02 Inactiv e 2023 78957 83612 0 Pantoprazol e 40 mg tablet,zaki yed release [generic] 1 tab By Mouth Once daily For gerd 1 tab 2023 Active 2023 54658 70080 0 Once daily By Mouth False Tramadol 50 mg tablet [generic] 09/02 Inactiv e 2023 46712 24058 0 Tramadol 50 mg tablet [generic] 1 tab By Mouth Every 6 hours as needed For moderate/mynor re pain 1 tab 2023 Active 2023 19643 88896 0 Every 6 hours as needed By Mouth False Lorazepam 0.5 mg tablet [generic] 09/02 Inactiv e 2023 34684 54563 1 Lorazepam 0.5 mg tablet [generic] 1 tab By Mouth At bedtime as needed For anxiety 1 tab 2023 Active 2023 46425 88393 1 At bedtime as needed By Mouth False Polyethylen e glycol 3350 17 gram/dose oral powder [generic] 17 grams By Mouth Daily as needed PRN For order changed to PRN daily forcontispati on 17 grams 2023 Active 2023 90792 12553 4 Daily as needed By Mouth False Spironolact one 25 mg tablet [generic] 12.5 mg By Mouth Once daily For ESSENTIAL (PRIMARY) HYPERTENSION 12.5 mg 2023 Active 2023 03112 99089 1 Once daily By Mouth I10. False Furosemide 20 mg tablet [generic] 20 mg By Mouth Once daily For UNSPECIFIED SYSTOLIC (CONGESTIVE) HEART FAILURE 20 mg 2023 Active 2023 74185 18495 0 Once daily By Mouth I50.20 False Carvedilol 12.5 mg tablet [generic] 09/07 Inactiv e 2023 30053 25921 0 Carvedilol 12.5 mg tablet [generic] 12.5mg By Mouth Twice daily For CAD hold for systolic b/p less than 100 12.5mg 202300 0000 Active 2023 77521 70065 0 Twice daily By Mouth False Losartan 25 mg tablet [generic] 09/07 Inactiv e 2023 55556 07711 9 Losartan 25 mg tablet [generic] 25mg By Mouth Once daily For HTN 25mg 202300 Active 2023 05587 11704 9 Once daily By Mouth False Unstageable with Drainage wwound bed Topical Once daily Site Coccyx Cleanse with dakins 25%pat dry, apply SANTYL, cover with border gauze For wound care wwound bed 2023 Active 2023 Once daily Topica l False VITAL SIGNS Date Time Diastolic blood pressure Systolic blood pressure Body height Body weight Temperature SpO2 Blood Sugar Pulse Respirations 45261 206 95649 1 64.00 mm[Hg] - Sitting 109.00 mm[Hg] - Sitting 98.70 Tympanic 90.00 % 64.00/ min 16.00/min 206 74919 0 178.60 NI 39727 206 82963 6 63 NI 206 36187 4 72.00 mm[Hg] - Sitting 121.00 mm[Hg] - Sitting 100.40 Forehead Scan 92.00 % 60.00/ min 18.00/min 206 05042 8 72.00 mm[Hg] - Sitting 121.00 mm[Hg] - Sitting 100.40 Tympanic 206 30983 9 60.00/ min 18.00/min 206 49239 5 148.00 mg/dL 207 13016 7 63.00 mm[Hg] - Sitting 122.00 mm[Hg] - Sitting 100.40 Tympanic 60.00/ min 18.00/min 207 91185 7 55.00 mm[Hg] - Sitting 104.00 mm[Hg] - Sitting 98.40 Forehead Scan 96.00 % 66.00/ min 18.00/min 24765 207 88188 5 120.00 mg/dL 16335 207 86379 6 101.00 mg/dL 30913 207 08313 8 63.00 mm[Hg] - Sitting 122.00 mm[Hg] - Sitting 11486 207 32673 7 134.00 mg/dL 73361 207 60564 9 134.00 mg/dL 00574 207 57429 0 127.00 mg/dL 76008 207 89692 7 127.00 mg/dL 77501 207 17620 9 122.00 mg/dL 51288 208 29774 9 62.00 mm[Hg] - Sitting 106.00 mm[Hg] - Sitting 98.60 Tympanic 66.00/ min 18.00/min 47203 208 31527 3 117.00 mg/dL 97343 208 03818 2 155.00 mg/dL 80126 208 57045 6 98.60 Tympanic 16201 208 44228 1 123.00 mg/dL 23391 208 21020 2 123.00 mg/dL 90770 208 81954 4 62.00 mm[Hg] - Sitting 106.00 mm[Hg] - Sitting 72354 208 66165 7 123.00 mg/dL 32004 208 66541 1 123.00 mg/dL 80753 208 81623 7 136.00 mg/dL 20988 209 91603 0 60.00 mm[Hg] - Sitting 113.00 mm[Hg] - Sitting 98.50 Forehead Scan 98.00 % 61.00/ min 16.00/min 58810 209 71967 7 114.00 mg/dL 91732 209 43590 7 111.00 mg/dL 71322 209 17287 0 98.00 Tympanic 67747 209 92207 2 68.00 mm[Hg] - Sitting 118.00 mm[Hg] - Sitting 99795 209 58091 5 156.00 mg/dL 12025 209 63490 4 156.00 mg/dL 99363 209 72938 5 132.00 mg/dL 32388 209 02901 4 132.00 mg/dL 36021 209 05390 0 136.00 mg/dL 12748 210 35414 0 52.00 mm[Hg] - Sitting 119.00 mm[Hg] - Sitting 98.40 Forehead Scan 96.00 % 57.00/ min 18.00/min 56451 210 32329 9 107.00 mg/dL 14340 210 81182 7 108.00 mg/dL 62767 210 01180 8 97.00 Tympanic 87994 210 74616 2 126.00 mg/dL 45899 210 71531 0 126.00 mg/dL 51584 210 71808 9 126.00 mg/dL 16331 210 96748 2 154.00 mg/dL 96772 211 28176 0 53.00 mm[Hg] - Lying Down 104.00 mm[Hg] - Lying Down 98.90 Tympanic 93.00 % 60.00/ min 18.00/min 70817 211 28939 0 62.00 mm[Hg] - Sitting 72.00 mm[Hg] - Sitting 98.30 Tympanic 96.00 % 62.00/ min 18.00/min 70374 211 03282 9 136.00 mg/dL 94415 211 97555 8 131.00 mg/dL 65881 211 84098 3 118.00 mg/dL 82390 211 18071 9 130.00 mg/dL 16661 212 54366 7 46.00 mm[Hg] - Sitting 101.00 mm[Hg] - Sitting 98.50 Tympanic 96.00 % 62.00/ min 20.00/min 63571 212 22516 1 110.00 mg/dL 40133 212 74870 8 110.00 mg/dL 66732 212 61718 8 152.00 mg/dL 59873 212 95949 0 120.00 mg/dL 35028 213 67208 9 123.00 mg/dL 64689 213 67876 9 123.00 mg/dL 24575 213 62553 5 20301 213 12590 2 76976 213 95006 8 93285 213 14295 8 16702 213 61295 5 134.00 mg/dL 74033 214 30511 5 50.00 mm[Hg] - Sitting 108.00 mm[Hg] - Sitting 98.20 Tympanic 97.00 % 60.00/ min 20.00/min 16139 214 74591 0 53.00 mm[Hg] - Sitting 104.00 mm[Hg] - Sitting 97.80 Tympanic 97.00 % 61.00/ min 18.00/min 84841 214 30513 4 122.00 mg/dL 26755 214 10803 2 122.00 mg/dL 65018 214 77478 7 142.00 mg/dL 73716 214 29046 4 142.00 mg/dL 26020 214 68148 7 115.00 mg/dL 98904 214 48022 9 115.00 mg/dL 60040 214 48447 1 121.00 mg/dL 46504 215 23484 5 97.80 Forehead Scan 98.00 % 60.00/ min 18.00/min 19667 215 91851 6 46.00 mm[Hg] - Lying Down 85.00 mm[Hg] - Lying Down 55830 215 27982 5 130.00 mg/dL 78424 215 45462 8 130.00 mg/dL 92783 215 45666 5 130.00 mg/dL 44183 215 56237 2 117.00 mg/dL 41452 215 55760 3 138.00 mg/dL 39283 216 84617 1 62.00 mm[Hg] - Lying Down 90.00 mm[Hg] - Lying Down 93728 216 42348 3 94.00 mg/dL 09209 216 99717 1 36.00 mm[Hg] - Sitting 80.00 mm[Hg] - Sitting 18539 216 24852 9 01440 216 57520 1 92076 216 58007 5 55035 216 97094 0 97178 216 62273 3 Immunizations Vaccine Date Status Influenza 08/29/2024 Completed (PCV13)Pneumococcal 08/29/2024 Completed
--- OUTSIDE RECORDS SUMMARY | 2024-09-26 23:49 | External Medical Summary | Continuity Of Care Document ---
Author Name Unknown Address [address] [address] Organization [facility] [place] () Care Team Providers Care Delivery Tech Name Role Phone DO Perdomo Amy Primary Care Provider [phone] Allergies Allergy Reaction Start Date End Date [...] 3 0.1 mL 09/01 Inactiv e 2023 73042 86487 0 1 time Intrad ermal False Tubersol 5 tub. unit/0.1 mL intradermal injection solution [Tuberculin PPD] 0.1mL Intradermal 1 time For PPD 2nd Step Give 2nd Step PPD Day 1 and Read results Day 3 (schedule 7 days after 1st READ) 0.1mL 09/10 Inactiv e 2023 65110 29980 0 1 time Intrad ermal False Tylenol 325 mg tablet 2 tabs By Mouth Every 4 hours as needed For Pain DO NOT EXCEED 3000 MG APAP/24 Hours 2 tabs 09/02 Inactiv e 2023 47337 89704 0 Every 4 hours as needed By Mouth False Tylenol 325 mg tablet 2 tabs By Mouth Every 4 hours as needed For Fever >100 DO NOT EXCEED 3000 MG APAP/24 Hours 2 tabs 2023 00/00 /0000 Active 2023 01576 03193 0 Every 4 hours as needed By Mouth False Dulcolax (bisacodyl) 10 mg rectal suppository One Suppository per rectum PRN if Milk of Magnisia ineffective. Give on day 5 of no BM 1 sup 2023 Active 2023 85312 46494 1 Daily as needed Rectal False Fleet Enema 19 gram-7 gram/118 mL Administer per rectum PRN one time if dulcolax suppository not effective. Give on day 6 of no BM 1 2023 Active 2023 88575 80244 6 Daily as needed Rectal False Dextrose 50 % in water (D50W) intravenous solution [generic] Dextrose 50% jose manuel 20-50 ml (slow push) Intravenous if Glucagon not effective after 15 minutes. CALL 911 for ED Evaluation. 50% jose manuel 2023 Active 2023 70048 37176 9 Intrav enous False Glucagon (HCl) Emergency Kit 1 mg solution for injection Administer Glucagon 1 mg Intramuscular if 15 minutes after GLucose Gel is administered Glucose remains less than 70 1 mg 2023 Active 2023 10912 59447 2 Intram uscula r False Glucose Gel 40 % oral gel [Dextrose] PRN If resident is unable to swallow (with or without symptoms) and Glucose results less than 70 give GLucose 40% Gel 1 tube orally - Recheck Glucose 15 minutes after administratio n. 1 tube 2023 Active 2023 83063 14717 8 By Mouth False Santyl 250 unit/gram topical ointment dose Topical Once daily to wound bed daily with wound care For Unstageable Pressure injury dose 2023 Active 2023 07411 73750 0 Once daily Topica l False Fluconazole 200 mg tablet [generic] 1 tab By Mouth Once daily For Yeast infection 1 tab 09/01 Inactiv e 2023 02502 07048 3 Once daily By Mouth False Phenazopyri dine 200 mg tablet [generic] 1 tab By Mouth Three times daily as needed For pain 1 tab 09/02 Inactiv e 2023 78296 62447 1 Three times daily as needed By Mouth False Aspirin 81 mg tablet,zaki yed release [generic] 1 tab By Mouth At bedtime For CAD 1 tab 2023 Active 2023 85186 45153 9 At bedtime By Mouth False BD AutoShield Duo Pen Needle 30 gauge x 3/16in 1 4 times a day subcutaneous 4 times a day change needle wqith every use of insulin For Type 2 diabetes Mellitus 1 2023 Active 2023 37222 07734 5 4 times a day Subcut aneous False Albuterol sulfate HFA 90 mcg/actuati on aerosol inhaler [generic] 2 puff Inhalation Every 6 hours as needed For SOB or wheezing 2 puff 2023 Active 2023 29363 49509 2 Every 6 hours as needed Inhala tion False Tramadol 50 mg tablet [generic] 1 tab By Mouth Every 6 hours as needed For pain 1 tab 09/02 Inactiv e 2023 33033 43473 0 Every 6 hours as needed By Mouth False Docusate sodium 100 mg tablet [generic] 1 tab Daily as needed For constipation 1 tab 2023 Active 2023 70852 81162 1 Daily as needed By Mouth False Senna Laxative 8.6 mg tablet 1 tab By Mouth Daily as needed For constipation 1 tab 2023 Active 2023 44611 00493 0 Daily as needed By Mouth False Potassium chloride ER 20 mEq tablet,exte nded release [generic] 1 tab By Mouth Twice daily For hypokalemia 1 tab 2023 Active 2023 89999 43047 1 Twice daily By Mouth False Acyclovir 400 mg tablet [generic] 1 tab By Mouth Twice daily For preventative B-cell lymphoma 1 tab 2023 Active 2023 65167 18401 1 Twice daily By Mouth False Pantoprazol e 40 mg tablet,zaki yed release [generic] 1 tab By Mouth Once daily For gerd 1 tab 09/02 Inactiv e 2023 61429 65632 0 Once daily By Mouth False Metformin 1,000 mg tablet [generic] 1 tab By Mouth Twice daily For DM2 1 tab 09/02 Inactiv e 2023 08893 45657 0 Twice daily By Mouth False Rosuvastati n 20 mg tablet [generic] 1 tab By Mouth At bedtime For hyperlipdemia 1 tab 2023 Active 2023 09053 76170 0 At bedtime By Mouth False Polyethylen e glycol 3350 (bulk) powder [generic] 17 g By Mouth Daily as needed For constipation 17 g 2023 Active 2023 57175 06248 1 Daily as needed By Mouth False Prochlorper azine maleate 10 mg tablet [generic] 1 tab By Mouth Every 6 hours as needed For nausea 1 tab 09/02 Inactiv e 2023 11421 68053 1 Every 6 hours as needed By Mouth False Bisacodyl 5 mg tablet,zaki yed release [generic] 1 tab By Mouth Daily as needed For constipation 1 tab 2023 Active 2023 42366 78844 1 Daily as needed By Mouth False Lorazepam 0.5 mg tablet [generic] 1 tab By Mouth At bedtime as needed For anxiety 1 tab 09/02 Inactiv e 2023 29613 09978 1 At bedtime as needed By Mouth False Insulin glargine (U-300) conc. 300 unit/mL (3 mL) subcutaneou s pen [generic] 40 units Subcutaneous At bedtime For DM2 40 units 09/02 Inactiv e 2023 78578 30529 2 At bedtime Subcut aneous False Jardiance 10 mg tablet 1 tab By Mouth Once daily For DM2 1 tab 2023 Active 2023 22782 05299 7 Once daily By Mouth False Insulin [...] time order For diabetes 2023 Active 2023 09395 60226 5 3 times a day Subcut aneous False Sulfamethox azole 800 mg-trimetho prim 160 mg tablet [generic] 1 tab By Mouth 3 times a week on sunday, sunday, sunday For UTI 1 tab 09/02 Inactiv e 2023 37924 82237 1 3 times a week By Mouth False Gemtesa 75 mg tablet 75mg By Mouth Once daily For urinary management 75mg 2023 Active 2023 34667 14760 7 Once daily By Mouth False Losartan 25 mg tablet [generic] 25mg By Mouth Once daily For HTN 25mg 09/07 Inactiv e 2023 22415 31294 9 Once daily By Mouth False Ozempic 1 mg/dose (4 mg/3 mL) subcutaneou s pen injector 1mg Subcutaneous Every week For diabetes 1mg 09/04 Inactiv e 2023 43053 71934 3 Every week Subcut aneous False Carvedilol 12.5 mg tablet [generic] 12.5mg By Mouth Twice daily For CAD 12.5mg 09/07 Inactiv e 2023 93476 70123 0 Twice daily By Mouth False Loratadine 10 mg tablet [generic] 10 By Mouth Once daily As Needed For CHEMO 10 09/02 Inactiv e 2023 82441 59009 9 Once daily By Mouth False Loperamide 2 mg tablet [generic] 2mg By Mouth Every 6 hours As Needed For diarrhea 2mg 2023 Active 2023 96868 56103 6 Every 6 hours By Mouth False Spironolact one 25 mg tablet [generic] 25mg By Mouth Once daily For HTN 25mg 09/04 Inactiv e 2023 52788 27570 1 Once daily By Mouth False Lasix 40 mg tablet 40 By Mouth Once daily For htn 40 09/04 Inactiv e 2023 39921 13993 1 Once daily By Mouth False Ondansetron HCl 8 mg tablet [generic] 8mg By Mouth Every 8 hours For Encephalopath y 8mg 09/02 Inactiv e 2023 85673 29331 0 Every 8 hours By Mouth False Levofloxaci n 750 mg tablet [generic] 750 mg By Mouth Once daily For UTI 750 mg 09/02 Inactiv e 2023 22591 73768 6 Once daily By Mouth False Miralax 17 gram/dose oral powder 17grams By Mouth Once daily For constipation 17grams 09/03 Inactiv e 2023 56145 69547 0 Once daily By Mouth False Sulfamethox azole 800 mg-trimetho prim 160 mg tablet [generic] 09/02 Inactiv e 2023 61151 05689 1 Sulfamethox azole 800 mg-trimetho prim 160 mg tablet [generic] 1 tab By Mouth 3 times a week on sunday, sunday, sunday For UTI 1 tab 09/02 Inactiv e 2023 32191 90904 1 3 times a week By Mouth False Sulfamethox azole 800 mg-trimetho prim 160 mg tablet [generic] 09/02 Inactiv e 2023 55464 63493 1 Sulfamethox azole 800 mg-trimetho prim 160 mg tablet [generic] 1 tab By Mouth 3 times a week on sunday, sunday, sunday For UTI 1 tab 2023 00/00 /0000 Active 2023 97145 46407 1 3 times a week By Mouth False Polyethylen e glycol 3350 17 gram/dose oral powder [generic] 17 grams By Mouth Once daily For contispation 17 grams 09/04 Inactiv e 2023 34099 01901 4 Once daily By Mouth False Posaconazol e 100 mg tablet,zaki yed release [generic] 300mg By Mouth Once daily For Antifungal 300mg 09/18 Active 2023 93318 53512 0 Once daily By Mouth False Senna 8.6 mg tablet 2 tabs By Mouth Twice daily For contispation 2 tabs 2023 Active 2023 10135 34264 1 Twice daily By Mouth False ProSource No Carb 15 gram-60 kcal/30 mL oral liquid 30 ml By Mouth Once daily For Wound - Note total ml consumed 30 ml 2023 Active 2023 74549 93454 5 Once daily By Mouth False Levofloxaci n 500 mg tablet [generic] 500 mg By Mouth Once daily For Prophylaxis 500 mg 2023 Active 2023 81573 35117 8 Once daily By Mouth False Mirtazapine 7.5 mg tablet [generic] 7.5 mg By Mouth Once daily For Depression 7.5 mg 2023 Active 2023 78209 92566 5 Once daily By Mouth False Prochlorper azine maleate 10 mg tablet [generic] 09/02 Inactiv e 2023 72707 14359 1 Prochlorper azine maleate 10 mg tablet [generic] 1 tab By Mouth Every 6 hours as needed For nausea 1 tab 09/16 Active 2023 11994 08763 1 Every 6 hours as needed By Mouth False Ondansetron HCl 8 mg tablet [generic] 09/02 Inactiv e 2023 19340 96336 0 Ondansetron HCl 8 mg tablet [generic] 8mg By Mouth Every 8 hours For Nausea 8mg 2023 Active 2023 86502 75101 0 Every 8 hours By Mouth False Lorazepam 0.5 mg tablet [generic] 09/02 Inactiv e 2023 40773 72388 1 Lorazepam 0.5 mg tablet [generic] 1 tab By Mouth At bedtime as needed For anxiety 1 tab 09/02 Inactiv e 2023 00398 12586 1 At bedtime as needed By Mouth False Loratadine 10 mg tablet [generic] 09/02 Inactiv e 2023 88708 20009 9 Loratadine 10 mg tablet [generic] 10 By Mouth Once daily As Needed For when receiving chemotherapy 10 202300 Active 2023 68202 06769 9 Once daily By Mouth False Tramadol 50 mg tablet [generic] 09/02 Inactiv e 2023 55464 06003 0 Tramadol 50 mg tablet [generic] 1 tab By Mouth Every 6 hours as needed For moderate/ymnor re pain 1 tab 09/02 Inactiv e 2023 76643 25344 0 Every 6 hours as needed By Mouth False Phenazopyri dine 200 mg tablet [generic] 09/02 Inactiv e 2023 97121 31751 1 Phenazopyri dine 200 mg tablet [generic] 1 tab By Mouth Three times daily as needed For bladder pain 1 tab 202300 Active 2023 55970 84369 1 Three times daily as needed By Mouth False Tylenol 325 mg tablet 09/02 Inactiv e 2023 63787 15780 0 Tylenol 325 mg tablet 2 tabs By Mouth Every 4 hours as needed For DO NOT EXCEED 3000 MG APAP/24 Hours For mild Pain 2 tabs 202300 / Active 2023 83803 57104 0 Every 4 hours as needed By Mouth False Metformin 1,000 mg tablet [generic] 09/02 Inactiv e 2023 59993 61630 0 Metformin 1,000 mg tablet [generic] 1 tab By Mouth Twice daily with meals For DM2 1 tab 2023 Active 2023 87512 69043 0 Twice daily By Mouth False Pantoprazol e 40 mg tablet,zaki yed release [generic] 09/02 Inactiv e 2023 18129 88181 0 Pantoprazol e 40 mg tablet,zaki yed release [generic] 1 tab By Mouth Once daily For gerd 1 tab 2023 Active 2023 50405 53818 0 Once daily By Mouth False Tramadol 50 mg tablet [generic] 09/02 Inactiv e 2023 21507 11308 0 Tramadol 50 mg tablet [generic] 1 tab By Mouth Every 6 hours as needed For moderate/mynor re pain 1 tab 2023 Active 2023 26004 23724 0 Every 6 hours as needed By Mouth False Lorazepam 0.5 mg tablet [generic] 09/02 Inactiv e 2023 35949 39623 1 Lorazepam 0.5 mg tablet [generic] 1 tab By Mouth At bedtime as needed For anxiety 1 tab 2023 Active 2023 43078 65067 1 At bedtime as needed By Mouth False Polyethylen e glycol 3350 17 gram/dose oral powder [generic] 17 grams By Mouth Daily as needed PRN For order changed to PRN daily forcontispati on 17 grams 2023 Active 2023 07103 15091 4 Daily as needed By Mouth False Spironolact one 25 mg tablet [generic] 12.5 mg By Mouth Once daily For ESSENTIAL (PRIMARY) HYPERTENSION 12.5 mg 2023 Active 2023 43657 24127 1 Once daily By Mouth I10. False Furosemide 20 mg tablet [generic] 20 mg By Mouth Once daily For UNSPECIFIED SYSTOLIC (CONGESTIVE) HEART FAILURE 20 mg 2023 Active 2023 99292 13831 0 Once daily By Mouth I50.20 False Carvedilol 12.5 mg tablet [generic] 09/07 Inactiv e 2023 28997 93650 0 Carvedilol 12.5 mg tablet [generic] 12.5mg By Mouth Twice daily For CAD hold for systolic b/p less than 100 12.5mg 2023 Active 2023 72995 05970 0 Twice daily By Mouth False Losartan 25 mg tablet [generic] 09/07 Inactiv e 2023 04156 87405 9 Losartan 25 mg tablet [generic] 25mg By Mouth Once daily For HTN 25mg 2023 Active 2023 04749 34988 9 Once daily By Mouth False Unstageable [...] Active I25.10 Atherosclerotic hear t disease of [place] coronary artery without angina pectoris 08/29/2024 Active [...] Temperature SpO2 Blood Sugar Pulse Respirations 206 17745 1 64.00 mm[Hg] - Sitting 109.00 mm[Hg] - Sitting 98.70 Tympanic 90.00 % 64.00/ min 16.00/min 206 13861 0 178.60 [place] 56951 206 77832 6 63 NI 24738 206 01390 4 72.00 mm[Hg] - Sitting 121.00 mm[Hg] - Sitting 100.40 Forehead Scan 92.00 % 60.00/ min 18.00/min 15114 206 56075 8 72.00 mm[Hg] - Sitting 121.00 mm[Hg] - Sitting 100.40 Tympanic 21762 206 32790 9 60.00/ min 18.00/min 64979 206 57553 5 148.00 mg/dL 08817 207 74775 7 63.00 mm[Hg] - Sitting 122.00 mm[Hg] - Sitting 100.40 Tympanic 60.00/ min 18.00/min 82058 207 50630 7 55.00 mm[Hg] - Sitting 104.00 mm[Hg] - Sitting 98.40 Forehead Scan 96.00 % 66.00/ min 18.00/min 97195 207 21470 5 120.00 mg/dL 207 25000 6 101.00 mg/dL 207 31781 8 63.00 mm[Hg] - Sitting 122.00 mm[Hg] - Sitting 13549 207 43145 7 134.00 mg/dL 207 28319 9 134.00 mg/dL 91762 207 44466 0 127.00 mg/dL 207 63856 7 127.00 mg/dL 207 32030 9 122.00 mg/dL 06433 208 18259 9 62.00 mm[Hg] - Sitting 106.00 mm[Hg] - Sitting 98.60 Tympanic 66.00/ min 18.00/min 68041 208 50840 3 117.00 mg/dL 10476 208 94816 2 155.00 mg/dL 48411 208 39925 6 98.60 Tympanic 92641 208 84197 1 123.00 mg/dL 61591 208 49766 2 123.00 mg/dL 23377 208 27894 4 62.00 mm[Hg] - Sitting 106.00 mm[Hg] - Sitting 88445 208 65330 7 123.00 mg/dL 55325 208 12367 1 123.00 mg/dL 29933 208 16754 7 136.00 mg/dL 61202 209 27289 0 60.00 mm[Hg] - Sitting 113.00 mm[Hg] - Sitting 98.50 Forehead Scan 98.00 % 61.00/ min 16.00/min 26868 209 09219 7 114.00 mg/dL 70270 209 14223 7 111.00 mg/dL 42747 209 77712 0 98.00 Tympanic 62152 209 95078 2 68.00 mm[Hg] - Sitting 118.00 mm[Hg] - Sitting 74734 209 43310 5 156.00 mg/dL 59548 209 99851 4 156.00 mg/dL 97516 209 50674 5 132.00 mg/dL 54870 209 58906 4 132.00 mg/dL 41450 209 58593 0 136.00 mg/dL 81956 210 61195 0 52.00 mm[Hg] - Sitting 119.00 mm[Hg] - Sitting 98.40 Forehead Scan 96.00 % 57.00/ min 18.00/min 46718 210 05255 9 107.00 mg/dL 88876 210 78995 7 108.00 mg/dL 73636 210 86332 8 97.00 Tympanic 99774 210 83170 2 126.00 mg/dL 28109 210 64549 0 126.00 mg/dL 16806 210 26402 9 126.00 mg/dL 51614 210 41008 2 154.00 mg/dL 00448 211 92322 0 53.00 mm[Hg] - Lying Down 104.00 mm[Hg] - Lying Down 98.90 Tympanic 93.00 % 60.00/ min 18.00/min 03990 211 59149 0 62.00 mm[Hg] - Sitting 72.00 mm[Hg] - Sitting 98.30 Tympanic 96.00 % 62.00/ min 18.00/min 75190 211 62890 9 136.00 mg/dL 51062 211 43367 8 131.00 mg/dL 20310 211 99822 3 118.00 mg/dL 14893 211 56614 9 130.00 mg/dL 70580 212 79277 7 46.00 mm[Hg] - Sitting 101.00 mm[Hg] - Sitting 98.50 Tympanic 96.00 % 62.00/ min 20.00/min 69241 212 67249 1 110.00 mg/dL 09088 212 93469 8 110.00 mg/dL 43524 212 79465 8 152.00 mg/dL 53653 212 60503 0 120.00 mg/dL 98044 213 39131 9 123.00 mg/dL 85852 213 82599 9 123.00 mg/dL 13842 213 69691 5 82895 213 92548 2 94108 213 75087 8 63366 213 00626 8 11583 213 66693 5 134.00 mg/dL 16904 214 06883 5 50.00 mm[Hg] - Sitting 108.00 mm[Hg] - Sitting 98.20 Tympanic 97.00 % 60.00/ min 20.00/min 84837 214 16892 0 53.00 mm[Hg] - Sitting 104.00 mm[Hg] - Sitting 97.80 Tympanic 97.00 % 61.00/ min 18.00/min 62434 214 00584 4 122.00 mg/dL 46075 214 15616 2 122.00 mg/dL 90061 214 17200 7 142.00 mg/dL 16388 214 26446 4 142.00 mg/dL 92343 214 23751 7 115.00 mg/dL 00610 214 83659 9 115.00 mg/dL 53409 214 18595 1 121.00 mg/dL 95050 215 02343 5 97.80 Forehead Scan 98.00 % 60.00/ min 18.00/min 01401 215 54964 6 46.00 mm[Hg] - Lying Down 85.00 mm[Hg] - Lying Down 76371 215 26256 5 130.00 mg/dL 07044 215 89659 8 130.00 mg/dL 70249 215 19658 5 130.00 mg/dL 215 45076 2 117.00 mg/dL 22625 215 93512 3 138.00 mg/dL 59569 216 77405 1 62.00 mm[Hg] - Lying Down 90.00 mm[Hg] - Lying Down 02108 216 43300 3 94.00 mg/dL 77260 216 59617 1 36.00 mm[Hg] - Sitting 80.00 mm[Hg] - Sitting 216 38758 9 25274 216 16093 1 94246 216 86381 5 44419 216 37085 0 85296 216 04651 3 Immunizations Vaccine Date Status Influenza 08/29/2024 Completed (PCV13)Pneumococcal 08/29/2024 Completed
--- OUTSIDE RECORDS SUMMARY | 2024-09-26 23:49 | External Medical Summary | Continuity Of Care Document ---
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 unit/0.1 mL intradermal injection solution [Tuberculin PPD] 0.1mL Intradermal 1 time For PPD 2nd Step Give 2nd Step PPD Day 1 and Read results Day 3 (schedule 7 days after 1st READ) 0.1mL 09/10 Inactiv e 2023 91272 68775 0 1 time Intrad ermal False Tylenol 325 mg tablet 2 tabs By Mouth Every 4 hours as needed For Pain DO NOT EXCEED 3000 MG APAP/24 Hours 2 tabs 09/02 Inactiv e 2023 43343 47560 0 Every 4 hours as needed By Mouth False Tylenol 325 mg tablet 2 tabs By Mouth Every 4 hours as needed For Fever >100 DO NOT EXCEED 3000 MG APAP/24 Hours 2 tabs 2023 00/00 /0000 Active 2023 42422 40789 0 Every 4 hours as needed By Mouth False Dulcolax (bisacodyl) 10 mg rectal suppository One Suppository per rectum PRN if Milk of Magnisia ineffective. Give on day 5 of no BM 1 sup 2023 Active 2023 03887 50648 1 Daily as needed Rectal False Fleet Enema 19 gram-7 gram/118 mL Administer per rectum PRN one time if dulcolax suppository not effective. Give on day 6 of no BM 1 2023 Active 2023 89109 17955 6 Daily as needed Rectal False Dextrose 50 % in water (D50W) intravenous solution [generic] Dextrose 50% jose manuel 20-50 ml (slow push) Intravenous if Glucagon not effective after 15 minutes. CALL 911 for ED Evaluation. 50% jose manuel 2023 Active 2023 61076 62698 9 Intrav enous False Glucagon (HCl) Emergency Kit 1 mg solution for injection Administer Glucagon 1 mg Intramuscular if 15 minutes after GLucose Gel is administered Glucose remains less than 70 1 mg 2023 Active 2023 61368 19861 2 Intram uscula r False Glucose Gel 40 % oral gel [Dextrose] PRN If resident is unable to swallow (with or without symptoms) and Glucose results less than 70 give GLucose 40% Gel 1 tube orally - Recheck Glucose 15 minutes after administratio n. 1 tube 2023 Active 2023 79676 03663 8 By Mouth False Santyl 250 unit/gram topical ointment dose Topical Once daily to wound bed daily with wound care For Unstageable Pressure injury dose 2023 Active 2023 82430 14607 0 Once daily Topica l False Fluconazole 200 mg tablet [generic] 1 tab By Mouth Once daily For Yeast infection 1 tab 09/01 Inactiv e 2023 32068 62282 3 Once daily By Mouth False Phenazopyri dine 200 mg tablet [generic] 1 tab By Mouth Three times daily as needed For pain 1 tab 09/02 Inactiv e 2023 24620 59865 1 Three times daily as needed By Mouth False Aspirin 81 mg tablet,zaki yed release [generic] 1 tab By Mouth At bedtime For CAD 1 tab 2023 Active 2023 83988 98965 9 At bedtime By Mouth False BD AutoShield Duo Pen Needle 30 gauge x 3/16in 1 4 times a day subcutaneous 4 times a day change needle wqith every use of insulin For Type 2 diabetes Mellitus 1 2023 Active 2023 40117 70588 5 4 times a day Subcut aneous False Albuterol sulfate HFA 90 mcg/actuati on aerosol inhaler [generic] 2 puff Inhalation Every 6 hours as needed For SOB or wheezing 2 puff 2023 Active 2023 53376 74664 2 Every 6 hours as needed Inhala tion False Tramadol 50 mg tablet [generic] 1 tab By Mouth Every 6 hours as needed For pain 1 tab 09/02 Inactiv e 2023 97036 13051 0 Every 6 hours as needed By Mouth False Docusate sodium 100 mg tablet [generic] 1 tab Daily as needed For constipation 1 tab 2023 Active 2023 66390 75554 1 Daily as needed By Mouth False Senna Laxative 8.6 mg tablet 1 tab By Mouth Daily as needed For constipation 1 tab 2023 Active 2023 18368 34471 0 Daily as needed By Mouth False Potassium chloride ER 20 mEq tablet,exte nded release [generic] 1 tab By Mouth Twice daily For hypokalemia 1 tab 2023 Active 2023 05038 86860 1 Twice daily By Mouth False Acyclovir 400 mg tablet [generic] 1 tab By Mouth Twice daily For preventative B-cell lymphoma 1 tab 2023 Active 2023 30009 82595 1 Twice daily By Mouth False Pantoprazol e 40 mg tablet,zaki yed release [generic] 1 tab By Mouth Once daily For gerd 1 tab 09/02 Inactiv e 2023 76204 78712 0 Once daily By Mouth False Metformin 1,000 mg tablet [generic] 1 tab By Mouth Twice daily For DM2 1 tab 09/02 Inactiv e 2023 28568 20062 0 Twice daily By Mouth False Rosuvastati n 20 mg tablet [generic] 1 tab By Mouth At bedtime For hyperlipdemia 1 tab 2023 Active 2023 04257 65684 0 At bedtime By Mouth False Polyethylen e glycol 3350 (bulk) powder [generic] 17 g By Mouth Daily as needed For constipation 17 g 2023 Active 2023 44701 38722 1 Daily as needed By Mouth False Prochlorper azine maleate 10 mg tablet [generic] 1 tab By Mouth Every 6 hours as needed For nausea 1 tab 09/02 Inactiv e 2023 22268 88324 1 Every 6 hours as needed By Mouth False Bisacodyl 5 mg tablet,zaki yed release [generic] 1 tab By Mouth Daily as needed For constipation 1 tab 2023 Active 2023 54709 86451 1 Daily as needed By Mouth False Lorazepam 0.5 mg tablet [generic] 1 tab By Mouth At bedtime as needed For anxiety 1 tab 09/02 Inactiv e 2023 42957 48992 1 At bedtime as needed By Mouth False Insulin glargine (U-300) conc. 300 unit/mL (3 mL) subcutaneou s pen [generic] 40 units Subcutaneous At bedtime For DM2 40 units 09/02 Inactiv e 2023 41085 11173 2 At bedtime Subcut aneous False Jardiance 10 mg tablet 1 tab By Mouth Once daily For DM2 1 tab 2023 Active 2023 78577 71066 7 Once daily By Mouth False Insulin [...] time order For diabetes 2023 Active 2023 32712 34643 5 3 times a day Subcut aneous False Sulfamethox azole 800 mg-trimetho prim 160 mg tablet [generic] 1 tab By Mouth 3 times a week on sunday, sunday, sunday For UTI 1 tab 09/02 Inactiv e 2023 69484 23837 1 3 times a week By Mouth False Gemtesa 75 mg tablet 75mg By Mouth Once daily For urinary management 75mg 2023 Active 2023 87308 39566 7 Once daily By Mouth False Losartan 25 mg tablet [generic] 25mg By Mouth Once daily For HTN 25mg 09/07 Inactiv e 2023 46975 62888 9 Once daily By Mouth False Ozempic 1 mg/dose (4 mg/3 mL) subcutaneou s pen injector 1mg Subcutaneous Every week For diabetes 1mg 09/04 Inactiv e 2023 04571 85102 3 Every week Subcut aneous False Carvedilol 12.5 mg tablet [generic] 12.5mg By Mouth Twice daily For CAD 12.5mg 09/07 Inactiv e 2023 07942 68419 0 Twice daily By Mouth False Loratadine 10 mg tablet [generic] 10 By Mouth Once daily As Needed For CHEMO 10 09/02 Inactiv e 2023 92475 70092 9 Once daily By Mouth False Loperamide 2 mg tablet [generic] 2mg By Mouth Every 6 hours As Needed For diarrhea 2mg 2023 Active 2023 29071 77805 6 Every 6 hours By Mouth False Spironolact one 25 mg tablet [generic] 25mg By Mouth Once daily For HTN 25mg 09/04 Inactiv e 2023 10727 72091 1 Once daily By Mouth False Lasix 40 mg tablet 40 By Mouth Once daily For htn 40 09/04 Inactiv e 2023 24450 86882 1 Once daily By Mouth False Ondansetron HCl 8 mg tablet [generic] 8mg By Mouth Every 8 hours For Encephalopath y 8mg 09/02 Inactiv e 2023 58370 11971 0 Every 8 hours By Mouth False Levofloxaci n 750 mg tablet [generic] 750 mg By Mouth Once daily For UTI 750 mg 09/02 Inactiv e 2023 34428 82783 6 Once daily By Mouth False Miralax 17 gram/dose oral powder 17grams By Mouth Once daily For constipation 17grams 09/03 Inactiv e 2023 82625 25741 0 Once daily By Mouth False Sulfamethox azole 800 mg-trimetho prim 160 mg tablet [generic] 09/02 Inactiv e 2023 33958 81651 1 Sulfamethox azole 800 mg-trimetho prim 160 mg tablet [generic] 1 tab By Mouth 3 times a week on sunday, sunday, sunday For UTI 1 tab 09/02 Inactiv e 2023 98159 19060 1 3 times a week By Mouth False Sulfamethox azole 800 mg-trimetho prim 160 mg tablet [generic] 09/02 Inactiv e 2023 87195 22001 1 Sulfamethox azole 800 mg-trimetho prim 160 mg tablet [generic] 1 tab By Mouth 3 times a week on sunday, sunday, sunday For UTI 1 tab 2023 00/00 /0000 Active 2023 08509 47602 1 3 times a week By Mouth False Polyethylen e glycol 3350 17 gram/dose oral powder [generic] 17 grams By Mouth Once daily For contispation 17 grams 09/04 Inactiv e 2023 10300 61217 4 Once daily By Mouth False Posaconazol e 100 mg tablet,zaki yed release [generic] 300mg By Mouth Once daily For Antifungal 300mg 09/18 Active 2023 43842 32473 0 Once daily By Mouth False Senna 8.6 mg tablet 2 tabs By Mouth Twice daily For contispation 2 tabs 2023 Active 2023 73230 44539 1 Twice daily By Mouth False ProSource No Carb 15 gram-60 kcal/30 mL oral liquid 30 ml By Mouth Once daily For Wound - Note total ml consumed 30 ml 2023 Active 2023 43791 90703 5 Once daily By Mouth False Levofloxaci n 500 mg tablet [generic] 500 mg By Mouth Once daily For Prophylaxis 500 mg 2023 Active 2023 05894 81600 8 Once daily By Mouth False Mirtazapine 7.5 mg tablet [generic] 7.5 mg By Mouth Once daily For Depression 7.5 mg 2023 Active 2023 21430 52483 5 Once daily By Mouth False Prochlorper azine maleate 10 mg tablet [generic] 09/02 Inactiv e 2023 31218 38717 1 Prochlorper azine maleate 10 mg tablet [generic] 1 tab By Mouth Every 6 hours as needed For nausea 1 tab 09/16 Active 2023 03569 95950 1 Every 6 hours as needed By Mouth False Ondansetron HCl 8 mg tablet [generic] 09/02 Inactiv e 2023 64315 71171 0 Ondansetron HCl 8 mg tablet [generic] 8mg By Mouth Every 8 hours For Nausea 8mg 2023 Active 2023 05683 79755 0 Every 8 hours By Mouth False Lorazepam 0.5 mg tablet [generic] 09/02 Inactiv e 2023 98286 59875 1 Lorazepam 0.5 mg tablet [generic] 1 tab By Mouth At bedtime as needed For anxiety 1 tab 09/02 Inactiv e 2023 97982 85767 1 At bedtime as needed By Mouth False Loratadine 10 mg tablet [generic] 09/02 Inactiv e 2023 26518 59035 9 Loratadine 10 mg tablet [generic] 10 By Mouth Once daily As Needed For when receiving chemotherapy 10 202300 Active 2023 88540 52028 9 Once daily By Mouth False Tramadol 50 mg tablet [generic] 09/02 Inactiv e 2023 83483 11884 0 Tramadol 50 mg tablet [generic] 1 tab By Mouth Every 6 hours as needed For moderate/mynor re pain 1 tab 09/02 Inactiv e 2023 11659 40462 0 Every 6 hours as needed By Mouth False Phenazopyri dine 200 mg tablet [generic] 09/02 Inactiv e 2023 52991 56936 1 Phenazopyri dine 200 mg tablet [generic] 1 tab By Mouth Three times daily as needed For bladder pain 1 tab 202300 Active 2023 45547 58993 1 Three times daily as needed By Mouth False Tylenol 325 mg tablet 09/02 Inactiv e 2023 43243 82558 0 Tylenol 325 mg tablet 2 tabs By Mouth Every 4 hours as needed For DO NOT EXCEED 3000 MG APAP/24 Hours For mild Pain 2 tabs 202300 / Active 2023 40892 14443 0 Every 4 hours as needed By Mouth False Metformin 1,000 mg tablet [generic] 09/02 Inactiv e 2023 67825 51325 0 Metformin 1,000 mg tablet [generic] 1 tab By Mouth Twice daily with meals For DM2 1 tab 2023 Active 2023 11558 93968 0 Twice daily By Mouth False Pantoprazol e 40 mg tablet,zaki yed release [generic] 09/02 Inactiv e 2023 24760 02032 0 Pantoprazol e 40 mg tablet,zaki yed release [generic] 1 tab By Mouth Once daily For gerd 1 tab 2023 Active 2023 99149 98376 0 Once daily By Mouth False Tramadol 50 mg tablet [generic] 09/02 Inactiv e 2023 54112 44291 0 Tramadol 50 mg tablet [generic] 1 tab By Mouth Every 6 hours as needed For moderate/mynor re pain 1 tab 2023 Active 2023 12077 55765 0 Every 6 hours as needed By Mouth False Lorazepam 0.5 mg tablet [generic] 09/02 Inactiv e 2023 61872 96603 1 Lorazepam 0.5 mg tablet [generic] 1 tab By Mouth At bedtime as needed For anxiety 1 tab 2023 Active 2023 65569 31501 1 At bedtime as needed By Mouth False Polyethylen e glycol 3350 17 gram/dose oral powder [generic] 17 grams By Mouth Daily as needed PRN For order changed to PRN daily forcontispati on 17 grams 2023 Active 2023 24144 63702 4 Daily as needed By Mouth False Spironolact one 25 mg tablet [generic] 12.5 mg By Mouth Once daily For ESSENTIAL (PRIMARY) HYPERTENSION 12.5 mg 2023 Active 2023 72572 51541 1 Once daily By Mouth I10. False Furosemide 20 mg tablet [generic] 20 mg By Mouth Once daily For UNSPECIFIED SYSTOLIC (CONGESTIVE) HEART FAILURE 20 mg 2023 Active 2023 06813 93501 0 Once daily By Mouth I50.20 False Carvedilol 12.5 mg tablet [generic] 09/07 Inactiv e 2023 83692 66994 0 Carvedilol 12.5 mg tablet [generic] 12.5mg By Mouth Twice daily For CAD hold for systolic b/p less than 100 12.5mg 202300 0000 Active 2023 01334 38530 0 Twice daily By Mouth False Losartan 25 mg tablet [generic] 09/07 Inactiv e 2023 55199 83327 9 Losartan 25 mg tablet [generic] 25mg By Mouth Once daily For HTN 25mg 202300 Active 2023 22685 96827 9 Once daily By Mouth False Unstageable with Drainage wwound bed Topical Once daily Site Coccyx Cleanse with dakins 25%pat dry, apply SANTYL, cover with border gauze For wound care wwound bed 2023 Active 2023 Once daily Topica l False VITAL SIGNS Date Time Diastolic blood pressure Systolic blood pressure Body height Body weight Temperature SpO2 Blood Sugar Pulse Respirations 92923 206 04386 1 64.00 mm[Hg] - Sitting 109.00 mm[Hg] - Sitting 98.70 Tympanic 90.00 % 64.00/ min 16.00/min 206 14131 0 178.60 NI 66086 206 61366 6 63 NI 206 42609 4 72.00 mm[Hg] - Sitting 121.00 mm[Hg] - Sitting 100.40 Forehead Scan 92.00 % 60.00/ min 18.00/min 206 90667 8 72.00 mm[Hg] - Sitting 121.00 mm[Hg] - Sitting 100.40 Tympanic 206 00587 9 60.00/ min 18.00/min 206 48364 5 148.00 mg/dL 207 03717 7 63.00 mm[Hg] - Sitting 122.00 mm[Hg] - Sitting 100.40 Tympanic 60.00/ min 18.00/min 207 88924 7 55.00 mm[Hg] - Sitting 104.00 mm[Hg] - Sitting 98.40 Forehead Scan 96.00 % 66.00/ min 18.00/min 66931 207 87443 5 120.00 mg/dL 65478 207 98527 6 101.00 mg/dL 43127 207 74888 8 63.00 mm[Hg] - Sitting 122.00 mm[Hg] - Sitting 35478 207 52582 7 134.00 mg/dL 53740 207 85618 9 134.00 mg/dL 73026 207 63200 0 127.00 mg/dL 76522 207 03760 7 127.00 mg/dL 28194 207 29178 9 122.00 mg/dL 63629 208 68856 9 62.00 mm[Hg] - Sitting 106.00 mm[Hg] - Sitting 98.60 Tympanic 66.00/ min 18.00/min 79336 208 82899 3 117.00 mg/dL 71299 208 80211 2 155.00 mg/dL 58834 208 69451 6 98.60 Tympanic 72177 208 92048 1 123.00 mg/dL 72986 208 19074 2 123.00 mg/dL 26381 208 55298 4 62.00 mm[Hg] - Sitting 106.00 mm[Hg] - Sitting 60610 208 32801 7 123.00 mg/dL 87079 208 73984 1 123.00 mg/dL 64199 208 22171 7 136.00 mg/dL 40947 209 33611 0 60.00 mm[Hg] - Sitting 113.00 mm[Hg] - Sitting 98.50 Forehead Scan 98.00 % 61.00/ min 16.00/min 57355 209 02133 7 114.00 mg/dL 21573 209 08331 7 111.00 mg/dL 21740 209 14283 0 98.00 Tympanic 68789 209 77585 2 68.00 mm[Hg] - Sitting 118.00 mm[Hg] - Sitting 45064 209 89385 5 156.00 mg/dL 72292 209 39883 4 156.00 mg/dL 78496 209 10810 5 132.00 mg/dL 10531 209 12633 4 132.00 mg/dL 17704 209 83517 0 136.00 mg/dL 75424 210 17725 0 52.00 mm[Hg] - Sitting 119.00 mm[Hg] - Sitting 98.40 Forehead Scan 96.00 % 57.00/ min 18.00/min 19218 210 06246 9 107.00 mg/dL 19112 210 02137 7 108.00 mg/dL 35911 210 58987 8 97.00 Tympanic 13422 210 38562 2 126.00 mg/dL 58871 210 38628 0 126.00 mg/dL 01727 210 73562 9 126.00 mg/dL 30525 210 37631 2 154.00 mg/dL 21181 211 01772 0 53.00 mm[Hg] - Lying Down 104.00 mm[Hg] - Lying Down 98.90 Tympanic 93.00 % 60.00/ min 18.00/min 48434 211 61863 0 62.00 mm[Hg] - Sitting 72.00 mm[Hg] - Sitting 98.30 Tympanic 96.00 % 62.00/ min 18.00/min 67256 211 38579 9 136.00 mg/dL 46287 211 49097 8 131.00 mg/dL 80700 211 63893 3 118.00 mg/dL 56882 211 89568 9 130.00 mg/dL 50941 212 03202 7 46.00 mm[Hg] - Sitting 101.00 mm[Hg] - Sitting 98.50 Tympanic 96.00 % 62.00/ min 20.00/min 97641 212 24001 1 110.00 mg/dL 47755 212 44799 8 110.00 mg/dL 82805 212 12644 8 152.00 mg/dL 34744 212 10091 0 120.00 mg/dL 44883 213 61347 9 123.00 mg/dL 26777 213 39242 9 123.00 mg/dL 32241 213 01793 5 77315 213 32175 2 12166 213 32118 8 87587 213 00002 8 51139 213 73204 5 134.00 mg/dL 92892 214 47671 5 50.00 mm[Hg] - Sitting 108.00 mm[Hg] - Sitting 98.20 Tympanic 97.00 % 60.00/ min 20.00/min 48473 214 53146 0 53.00 mm[Hg] - Sitting 104.00 mm[Hg] - Sitting 97.80 Tympanic 97.00 % 61.00/ min 18.00/min 12867 214 09096 4 122.00 mg/dL 15915 214 82633 2 122.00 mg/dL 97869 214 66546 7 142.00 mg/dL 91350 214 10066 4 142.00 mg/dL 17625 214 39708 7 115.00 mg/dL 41942 214 21404 9 115.00 mg/dL 10127 214 12526 1 121.00 mg/dL 45713 215 32198 5 97.80 Forehead Scan 98.00 % 60.00/ min 18.00/min 20423 215 19089 6 46.00 mm[Hg] - Lying Down 85.00 mm[Hg] - Lying Down 64906 215 98269 5 130.00 mg/dL 98748 215 75309 8 130.00 mg/dL 29983 215 19425 5 130.00 mg/dL 14578 215 88739 2 117.00 mg/dL 61744 215 65798 3 138.00 mg/dL 33397 216 77461 1 62.00 mm[Hg] - Lying Down 90.00 mm[Hg] - Lying Down 28570 216 86980 3 94.00 mg/dL 15259 216 52763 1 36.00 mm[Hg] - Sitting 80.00 mm[Hg] - Sitting 86525 216 65910 9 21259 216 79048 1 32654 216 46688 5 76808 216 29234 0 17168 216 48257 3 Immunizations Vaccine Date Status Influenza 08/29/2024 Completed (PCV13)Pneumococcal 08/29/2024 Completed
[2024-09-27 00:05] LABS: BUN Creatinine Ratio 23.6 (10-20); Calcium 10.2 mg/dl (8.6-10.3); Creatinine Clr Calc Pharmacy 32.1 ml/min; Potassium 4.5 mmol/L (3.5-5.1)
[2024-09-27] MEDS: INSULIN ASPART PER UNIT CHARGE SC SCH (01:12)
--- NOTE | 2024-09-27 01:26 | CT Scan Report ---
Exam(s): CT HEAD Without Contrast EXAM: CT Head Without Intravenous Contrast CLINICAL HISTORY: Reason for exam: mental status change. TECHNIQUE: Axial computed tomography images of the head/brain without intravenous contrast. CTDI is 63.68 mGy and DLP is 110.35 mGy-cm. Automated exposure control was utilized for the study. A dose lowering technique was utilized adhering to the principles of ALARA. COMPARISON: Prior head CT from September 26, 2024 at 5:06 PM. FINDINGS: Brain: There is an isodense right subdural hematoma measuring 6.5 mm in maximal diameter. Moderate nonspecific white matter changes. No edema. Ventricles: Mild ventriculomegaly. Bones/joints: Unremarkable. No acute fracture. Soft tissues: Unremarkable. Sinuses: Chronic ethmoid and frontal sinusitis. No acute sinusitis. Mastoid air cells: Unremarkable as visualized. No mastoid effusion. IMPRESSION: Interval increase in size of right subdural hematoma now measuring 6.5 mm in maximal diameter. No evidence of midline shift. Recommend short-term interval follow-up to evaluate for stability. Communications: Verify Receipt Electronically signed by: Madyson Morgan MD 09/27/24 01:25 AM
[2024-09-27] MEDS: ROSUVASTATIN CALCIUM 20 MG TAB PO SCH (02:06)
[2024-09-27] MEDS: ACYCLOVIR 400 MG TAB PO SCH (02:06)
[2024-09-27 02:31] LABS: Hematocrit (blood only) 28.1 % (37.0-47.0); Hemoglobin 9.4 g/dl (12.0-16.0); Mean Corpuscular Hemoglobin 30.2 pg (25.0-34.0); Mean Corpuscular Hgb Conc 33.5 g/dL (32.0-36.0); Mean Corpuscular Volume 90.4 fL (80.0-100.0); Mean Platelet Volume 10.7 fL (9.4-12.4); Nucleated RBC # (auto) 0.05 K/uL (0.00-0.12); Nucleated RBC % (auto) 1.6 %; Platelet Count 41 K/uL (130-400); RDW Coefficient of Variation 19.7 % (11.5-14.5); RDW Standard Deviation 63.4 fL (36.4-46.3); Red Blood Count 3.11 M/uL (4.20-5.40); White Blood Count 3.12 K/ul (4.8-10.8)
[2024-09-27 02:48] LABS: BUN Creatinine Ratio 24.7 (10-20); Calcium 10.5 mg/dl (8.6-10.3); Creatinine Clr Calc Pharmacy 34.1 ml/min; Potassium 4.4 mmol/L (3.5-5.1)
[2024-09-27 03:01] VITALS: PULSE 101; TEMP 98.6
[2024-09-27 03:10] LABS: ALC (manual) 0.06 K/uL (1.2-3.4); ANC (manual) 2.93 K/uL (1.4-6.5); Dohle Bodies 1+; Echinocytes 1+; Eosinophils # (manual) 0.06 K/uL (0-0.50); Eosinophils % (manual) 2 %; Lymphocytes # (manual) 0.06 K/uL (1.2-3.4); Lymphocytes % (manual) 2 %; Metamyelocytes # (manual) 0.03 K/uL (0-0); Metamyelocytes % (manual) 1 %; Monocytes # (manual) 0.03 K/uL (0.11-0.59); Monocytes % (manual) 1 %; Neutrophils # (manual) 2.93 K/uL (1.40-6.50); Neutrophils % (manual) 94 %; Polychromasia 1+; Tear Drop Cells 1+
--- NOTE | 2024-09-27 03:41 | Communication Note ---
Date of Service: September 27, 2024 Per nursing increased confusion and ability to follow commands. Repeat Head CT with increased size of right subdural hematoma 4mm-> 6.5mm. Saw pt at bedside and no focal neurological deficits, but was having trouble following commands so hard to assess. Awake, alert, able to answer questions. Discussed with supervisor dairy sanitation neurosurgeon [facility] and plan for transfer. Per neurosurgery ok for ground transport qAM. Transport is scheduled for 729. Continue with neuro checks until then. Discussed with sister, Karen, she is aware of transfer. Went through consent forms for transfer with her and she gave verbal consent. Was also notified of increased troponin 47.8-> 99.4. Asymptomatic- denies chest pain. Repeat EKG remains with paced rhythm; unchanged from prior. Likely demand. Trend to peak.
[2024-09-27 07:35] VITALS: RESP 20; O2SAT 94
[2024-09-27 08:16] LABS: BUN Creatinine Ratio 24.8 (10-20); Calcium 10.1 mg/dl (8.6-10.3); Creatinine Clr Calc Pharmacy 33.8 ml/min; Potassium 4.4 mmol/L (3.5-5.1)
--- NOTE | 2024-09-27 08:35 | Discharge Summary ---
Discharge Summary Date of Service September 27, 2024 Principal Dx & Hospital Course #1 = Principal Diagnosis (1) Generalized weakness: my biggest suspicion is that she got somewhat delirious from tramadol, and then given that p.o. intake has been her major difficulty at this phase of her cancer journey, once she was delirious her p.o. intake fell off, leading to hyponatremic dehydrationperpetuating the delirium. Tramadol has been stopped, will work on hyponatremia as below, discussed with patient and family the deliriums do sometimes take a while to improve even after the offending cause has been alleviated. late finding of COVID (+) also could be contributing to delirium - has no real respiratory sx, but current covid in the community has been showing weakness/delirium in more frail geriatric patients As it relates to the possible mild right sided focus of her weaknessher neuroexam is somewhat inconsistent and that it seems to show a mild degree of asymmetric right-sided weakness (not an absolute degree) with no discernible sensory deficits, and most of the weakness seems to correct with volitional movement. As below noted, CT head shows R sided findings and if her weakness is real it's also R sided so doubt would be able to correlate. Certainly given that she has atrial flutter and is not on anticoagulation due to her chronic thrombocytopenia, a stroke would be possible, but seems less likely given the inconsistency of the "deficits" on exam. seizure activity possibly could explain this - and tertiary ability for more robust EEG monitoring could be of benefit. I discussed with patient/friend that there would not be any real interventions that we could do other than therapy given the unknown duration since "last known well" and her thrombocytopenia. (2) Hyponatremia: This seems to be the driving factor of her current decline. Hyponatremic dehydrationsodium as low as 126was normal last week. Probably due to poor p.o. intake. Hydrating with saline, every 4 hour basic metabolic panel, adjust fluid rates as necessary. slowly correcting. (3) Abnormal head CT: the ER physician discussed the CT scan personally with the radiologist who believed it is chronic findings more consistent with a hygroma. Obviously the patient is thrombocytopenic and on an antiplatelet so is at risk for something like a subdural; and therefore repeat head CT in short order was pursued - with this showing progression we felt it necessary to transfer to where neurosurgery is available/tertiary resources available especially given the complexity of her bleeding situation with age/frailty/malnutrition and lymphoma/thrombocytopenia. consider platelet transfusion (would not have had adequate time to order/admin here) (4) Anemia: She has been hypoproliferative, and hematology/oncology has had suspicion of chronic GI blood lossat the same time, she is currently hemodynamically overall stable with clinical picture much more consistent with dehydration than anemia. She has required multiple transfusions over the course of her cancer journey, and may require anotherbut certainly not acutely at this time. (5) Thrombocytopenia: (6) Atrial flutter: (7) Chronic kidney disease, stage 3a: (8) DVT prophylaxis: Pharmacologic contraindicated due to her thrombocytopenia, as well as suspicion of smoldering/chronic cancer related GI bleed/anemiawill use SCDs (9) Discharge planning issues: [facility] the goal would be to get her back there. PT/OT eval and treat. She is a full code. Notes For Next Care Provider Medication Changes From Visit per [facility] Admission HPI Per Admitting Provider patient is a very pleasant 73-year-old female well-known to me from recent prior admissions. History is somewhat from her as well as her close friend who is at the bedside, as well as discussions with her sister who had been present with her at rehab (discussions with sister over the phone). After discharge it sounds like for the first week or so she was doing better at rehab making strides, making progress, walking with a walker, and overall showing improvement. She was having some painit sounds like from her woundsand was given tramadolher sister noted shortly thereafter she started to look more delirious. She was only on the tramadol for about 24 hours, but has never quite been herself sincesince initiating the tramadol, and then appearing more delirious, Her p.o. intake has declined. Over the last 3-4 days it sounds like p.o. intake was a struggle and her weakness was getting worse. Friend and sister do not note any focal weakness, although the team at rehab was somewhat concerned about right sided weakness potentially. Patient herself is somewhat disorientedshe is able to recognize her friend, she loosely recognizes me but whenever asked where we met she says my name which is [facility] to [facility], and then states the name of the facility that was the skilled facility she went to 2 discharges ago. She denies pain. Denies nausea. Discharge Exam awake, talks - slow to respond and not at all her normal self (for [facility]: baseline is quite intelligent high functioning somewhat stoic but completely alert - due to high function baseline she appears more "with it" in her current delirious state than mental state actually is once asking further questions of her). breathing unlabored no accessory muscles no appearance of dyspnea. neuro shows less of a possible face droop R mouth than last night and definitely corrects/moves. R arm still is about 3+/5 strength and quite similar to L but now appears to be voluntarily moving less. due to delirious state she doesn't entirely follow commands well to assess sensation but seems to have intact sensation. doesn't move either LE voluntarily and doesn't give meaningful answer when i try to test for sensation -but this appears more c/w delirium than true neuro deficits Updated Medication List Medication Instructions Recorded Confirmed Type aspirin 81 mg tablet,delayed 81 mg PO HS 10/18/18 09/26/24 History release (Ecotrin Low Strength) pen needle, diabetic 31 gauge x #100 ea 05/15/22 09/26/24 Rx 3/16" (BD Ultra-Fine Mini Pen Needle) blood-glucose meter,continuous #3 ea 05/01/23 09/26/24 Rx (Dexcom G7 Staking Press Operator) blood-glucose sensor (Dexcom G7 #9 ea 05/01/23 09/26/24 Rx Sensor device) prochlorperazine maleate 10 mg 10 mg PO Q6H PRN Nausea OR VOMITING 05/07/24 09/26/24 History tablet (Compazine) lorazepam 0.5 mg tablet 0.5 mg PO HS PRN anxiety #20 tabs 05/08/24 09/26/24 Rx empagliflozin 10 mg tablet 10 mg PO QAM 05/12/24 09/26/24 History (Jardiance) miscellaneous medical supply #1 ea 05/13/24 09/26/24 Rx potassium chloride 20 mEq 20 meq PO BID #60 tabs 05/17/24 09/26/24 Rx tablet,extended release(part/cryst) metformin 1,000 mg tablet 1,000 mg PO BID #180 tabs 06/16/24 09/26/24 Rx semaglutide 1 mg/dose (4 mg/3 mL) 1 mg (0.75 mL) subcut WK #3 mL 07/03/24 09/26/24 Rx subcutaneous pen injector (Ozempic) loratadine 10 mg tablet (Claritin) 10 mg PO DAILY PRN chemo 07/16/24 09/26/24 History furosemide 40 mg tablet 40 mg PO DAILY 08/18/24 09/26/24 History spironolactone 25 mg tablet 25 mg PO DAILY #30 tabs 08/18/24 09/26/24 Rx vibegron 75 mg tablet (Gemtesa) 75 mg PO DAILY 30 days #30 tabs 08/29/24 09/26/24 Rx rosuvastatin 20 mg tablet 20 mg PO HS #90 tabs 09/08/24 09/26/24 Rx ferrous gluconate 324 mg (38 mg 324 mg PO Q48H #30 tabs 09/13/24 09/26/24 Rx iron) tablet acyclovir 400 mg tablet 400 mg PO AMHS 09/26/24 09/26/24 History albuterol sulfate 90 mcg/actuation 2 puff inhalation Q6H PRN wheezing 09/26/24 09/26/24 History aerosol inhaler fludrocortisone 0.1 mg tablet 0.1 mg PO DAILY 09/26/24 09/26/24 History insulin glargine U-300 conc 300 8 unit subcut BID 09/26/24 09/26/24 History unit/mL (1.5 mL) subcutaneous pen (Toujohnsono SoloStar U-300 Insulin) loperamide 2 mg capsule 2 mg PO Q6H PRN LOOSE STOOLS 09/26/24 09/26/24 History midodrine 5 mg tablet 5 mg PO BID 09/26/24 09/26/24 History pantoprazole 40 mg tablet,delayed 40 mg PO DAILYBB 09/26/24 09/26/24 History release sulfamethoxazole 400 1 tab PO 3XWK 09/26/24 09/26/24 History mg-trimethoprim 80 mg tablet (Bactrim) Hospital Stay Data Consultations 09/26/24 19:05 ED Decision to Admit Stat 09/27/24 03:17 Burn CD for patient Stat Diagnostic Imagining Performed 09/26/24 17:10 CT head/brain wo con Stat 09/26/24 17:16 CT angio head w con Stat CT angio neck with con Stat 09/26/24 22:00 CT head/brain wo con Stat Pending Results Patient Have Any Pending Studies at Discharge: No Discharge Instructions Given to Patient (Per Discharging Provider) Subdural Hematoma - enlarged on imagining, at risk due to - disused with concrete pourer neurosurgery and transfer to [facility] - discussed at length with sister and she is aware; provided consent for transfer - hold all antiplatelet/anticoagulation Hyponatremia: - Hyponatremic dehydrationsodium as low as 126was normal last week. Probably due to poor p.o. intake. Hydrate with saline, every 4 hour basic metabolic panel, adjust fluid rates as necessary. - Na 126-> 128->129 Elevated Troponin - troponin 47.8-> 99.4. Asymptomatic- denies chest pain. Repeat EKG remains with paced rhythm; unchanged from prior. Likely demand. Trend to peak. Due for next troponin 0800 Anemia: She has been hypoproliferative, and hematology/oncology has had suspicion of chronic GI blood lossat the same time, she is currently hemodynamically overall stable with clinical picture much more consistent with dehydration than anemia. She has required multiple transfusions over the course of her cancer journey, and may require anotherbut certainly not acutely at this time. - Hgb= 9.4 at time of d/c Thrombocytopenia: - plts stable at 41 B-cell lymphoma: - finished radiation 08/2024 - pancytopenic - continue prophylactic per [facility] antibiotics with -> Bactrim, acyclovir, levofloxacin - continue to trend CBC HFrEF (heart failure with reduced ejection fraction): - last TTE 2023: Moderate LV dysfunction. EF 35-40%. Moderate .Moderate MR. Hypokinesis anterior septum and inferolateral wall - continue Jardiance - blood pressures -> 110s/60s on presentation so lasix, spironolactone, KCl held-> restart as BP toleates - improved to 120s/80s at time of d/c Coronary artery disease: - Asp held due to concern for bleed Type 2 diabetes mellitus: - well controlled, last hemoglobin a1c= 5.1 03/17 - continue Sliding scale coverage for Total Time Total Time Spent Total Time Spent (In Minutes): <30
--- NOTE | 2024-09-27 08:41 | Billing Data ---
Date of Service September 27, 2024 Coding Level of Care Code 77339 IN/OBS DISCH 30 MIN/LESS
[2024-09-27] MEDS ORDERED: PANTOprazole 40 MG TAB PO SCH (09:00)
[2024-09-27] MEDS ORDERED: POLYETHYLENE (MIRALAX) 17 GM PACK PO SCH (09:00)
[2024-09-27] MEDS ORDERED: VIBEGRON 75 MG TAB PO SCH (09:00)
[2024-09-27] MEDS ORDERED: levoFLOXacin 750 MG TAB PO SCH (09:00)
[2024-09-27 09:48] VITALS: BP 108/75
[2024-09-29] MEDS ORDERED: SULFA/TRIMETH 400/80MG TAB PO SCH (08:00)
--- NOTE | 2024-09-29 08:46 | Electrocardiogram Report ---
Test Reason : Blood Pressure : */* mmHG Vent. Rate : 91 BPM Atrial Rate : 87 BPM P-R Int : 218 ms QRS Dur : 146 ms QT Int : 422 ms P-R-T Axes : 66 106 238 degrees QTcB Int : 519 ms Atrial-sensed ventricular-paced rhythm with prolonged AV conduction with frequent , and consecutive P remature ventricular complexes Abnormal ECG When compared with ECG of 08-Sep-2024 13:06, Premature ventricular complexes are now Present Vent. rate has increased by [address] Polo ([id number]) on 09/29/2024 8:45:48 AM Referred By: Confirmed By: Lane Polo
[2024-09-29] MEDS ORDERED: FERROUS GLUCONATE 324 MG TAB PO SCH (09:00)
--- NOTE | 2024-09-29 14:56 | Electrocardiogram Report ---
Test Reason : Blood Pressure : */* mmHG Vent. Rate : 104 BPM Atrial Rate : 104 BPM P-R Int : 210 ms QRS Dur : 130 ms QT Int : 352 ms P-R-T Axes : 57 80 243 degrees QTcB Int : 462 ms Atrial-sensed ventricular-paced rhythm with prolonged AV conduction with occasional Premature ventric ular complexes Abnormal ECG When compared with ECG of 26-Sep-2024 17:26, (unconfirmed) Vent. rate has increased by [address] Polo ([id number]) on 09/29/2024 2:55:40 PM Referred By: [facility] Confirmed By: Lane Polo
== END 2024-09-27 09:48 | disposition short-term general hospital (02) | DRG 64 ==
LOC: ED 17:02 → EDINP 20:06 → SUATTDRO 20:06 → 2S 22:02